=== PATIENT | female | born 1960 | race Caucasian/White ===

== ENCOUNTER 2020-05-08 13:45 | Observation (INO) | payer MEDICARE, BC, SELFPAY ==
[2020-05-08] VITALS (40 sets, daily range): BP systolic 103–140; BP diastolic 49–99; PULSE 61–91; RESP 14–27; TEMP 36.3–37.4; O2SAT 91–98; BMI 28.8
--- NOTE | ~2020-05-08 | XR_ITS ---
EXAMINATION: XR chest 1V portable DATE: 05/08/2020 15:38 INDICATION: Shortness of breath. COVID positive. TECHNIQUE: frontal view of the chest was obtained. COMPARISON: None FINDINGS: Mild opacities in the bilateral lower lung zones, left greater than right. No pleural effusion or pne umothorax. The cardiomediastinal silhouette is normal. Visualized bones and soft tissues are unremark able. IMPRESSION: 1. Mild opacities in the bilateral lower lung zones, left greater than right. Differential includes p neumonia, atelectasis, mild pulmonary edema or some combination thereof. Reviewed, dictated and finalized at location A. TROLOGIST IMPRESSION: 1. Mild opacities in the bilateral lower lung zones, left greater than right. D ifferential includes pneumonia, atelectasis, mild pulmonary edema or some combi nation thereof.
--- NOTE | ~2020-05-08 | CT_ITS ---
EXAMINATION: CTA chest PE protocol DATE: 05/09/2020 04:32 INDICATION: Shortness of breath, near syncope. TECHNIQUE: Computed tomography angiography (CTA) of the chest was performed with 100 mL Omnipaque-350 intravenous contrast timed to evaluate the pulmonary arteries. Coronal maximum intensity projection 3D-reconstructions were created by the technologist. Automated exposure control and iterative reconst ruction technique were employed. Exam dose: 223.61 mGy-cm total exam DLP. COMPARISON: May 08, 2020 portable AP chest at 1534 hours FINDINGS: There is diagnostic contrast enhancement of the pulmonary arteries and no evidence of pulmo nary embolism. Heart size is enlarged. No pericardial or pleural effusion. No thoracic aortic aneurysm or dissection. No hilar or mediastinal mass lesion or lymphadenopathy. There are scattered patchy primarily peripheral groundglass infiltrates. There is prominent discoid a telectasis and/or scarring in the lower lobes. Superimposed pneumonia is not excluded. Normal morphol ogy of the adrenal glands. Included upper abdominal structures are unremarkable. No suspicious osteolytic or osteoblastic lesions. IMPRESSION: Bilateral infiltrates and discoid atelectasis or scarring, most prominent in the lower l obes No evidence of pulmonary embolism Reviewed, dictated and finalized at Location A. Reviewed, dictated and finalized at location A. ARD WORKER IMPRESSION: Bilateral infiltrates and discoid atelectasis or scarring, most pr ominent in the lower lobes No evidence of pulmonary embolism
--- NOTE | 2020-05-08 13:52 | ECG_ITS ---
Measurements Intervals [place] Rate: 76 P: 40 AK: 133 QRS: 48 QRSD: 86 T: 188 QT: 358 QTc: 403 Interpretive Statements SINUS RHYTHM LEFT VENTRICULAR HYPERTROPHY AND ST-T CHANGE BORDERLINE ST-T WAVE ABNORMALITY- DIFFUSE LEADS BASELINE ARTIFACT- I, III, AVR, AVL BORDERLINE ECG Electronically Signed On 05-08-2020 14:02:52 WORKCELL OPERATOR by Kalin Ross D.O.
[2020-05-08 14:07] LABS: Basophils Percent Auto 0.3 % (0.2-1.2); Eosinophils Percent Auto 0.5 % (0-4.4); Hematocrit 37.3 % (37.0-47.0); Hemoglobin 12.1 g/dL (12.0-15.0); Immature Granulocyte Absolute 0.01 K/mm3 (0.00-0.031); Immature Granulocyte Percent A 0.3 % (0-0.5); Lymphocytes Absolute Auto 0.71 K/mm3 (0.9-3.2); Mean Corpuscular HGB Conc 32.4 g/dl (32-36); Mean Corpuscular Hemoglobin 28.3 pg (26-34); Mean Corpuscular Volume 87.4 fl (80-100); Mean Platelet Volume 10.2 fl (7.4-10.4); Monocytes Absolute Auto 0.3 K/mm3 (0.1-0.6); Monocytes Percent Auto 7.2 % (2.6-8.5); Neutrophils Absolute Auto 2.7 K/mm3 (1.3-6.7); Neutrophils Percent Auto 72.7 % (45.5-73.1); Platelet Count Result 201 k/mm3 (150-375); Red Blood Count 4.27 M/mm3 (4.2-5.4); Red Cell Distribution Width 13.8 % (11.5-14.5); White Blood Count 3.7 K/mm3 (4.5-10.0)
[2020-05-08 14:24] LABS: Anion Gap 9 mmol/L (8-16); Blood Urea Nitrogen 11 mg/dL (7-17); Carbon Dioxide 26 mmol/L (22-30); Chloride 105 mmol/L (98-107); Estimated CRCL calculation 63 ml/min; Estimated Glomerular Filt Rate > 60; Glucose 135 mg/dL (65-105); Potassium 2.4 mmol/L (3.4-5.0); Sodium 140 mmol/L (137-145)
[2020-05-08] MEDS: POTASSIUM CHLORIDE 20 MEQ TABLET 40 MEQ PO (15:25)
--- NOTE | 2020-05-08 16:23 | ED.SOB ---
HPI - SOB/Dyspnea General Chief Complaint: Shortness of Breath/Dyspnea Stated Complaint: covid/pneumonia Time Seen by Provider: 05/08/20 15:05 History of Present Illness HPI Narrative: Patient is a 59-year-old female who presents ER with shortness of breath. Patient has been feeling ill over the last 10 days. She had a Covid swab performed last week but it was lost and so she went and was swabbed 2 days ago. It came back positive. While she was swabbed the second time she was found to have a pneumonia and since she was a patient under investigation the prescribed her azithromycin. Patient reports she has history of IBS but has had increased frequency of loose stools. She also started having tingling in her arms bilaterally and occasional muscle cramps. Reports persistent low-grade fever. Extreme fatigue. Related Data Allergies Allergy/AdvReac Type Severity Reaction Status Date / Time amoxicillin Allergy Unknown Verified 05/08/20 15:25 codeine Allergy Unknown Verified 05/08/20 15:25 Sulfa (Sulfonamide Allergy Unknown Verified 05/08/20 15:25 Antibiotics) Review of Systems Review of Systems: All systems reviewed & are unremarkable except as noted in HPI and below Constitutional: Constitutional: Denies chills, Reports fatigue, Reports fever(s) and Reports weakness ENT: Denies nasal congestion and Denies sore throat Cardiovascular: Cardiovascular: Denies chest pain, Denies rapid heart rate and Denies radiating jaw, neck or arm pain Respiratory: Respiratory: Reports cough, Reports dyspnea and Denies wheezing Gastrointestinal: Gastrointestinal: Denies abdominal pain, Denies nausea and Denies vomiting Musculoskeletal: Musculoskeletal: Denies joint swelling and Reports muscle cramps Neurologic: Denies focal weakness and Denies numbness Comments: Tingling PMFSH Social History Social History Social History: The patient lives in [place]. Exam Narrative: Exam Narrative: GENERAL: Well-appearing, well-nourished, and in no acute distress. HEAD: Normocephalic, atraumatic. CHEST: Clear to auscultation. No respiratory distress. HEART: Regular rate and rhythm. Normal peripheral pulses. ABDOMEN: Soft, nontender, nondistended. EXTREMITIES: Normal range of motion. No edema. SKIN: Warm, dry, no rash. NEURO: Alert and oriented x3. PSYCH: Normal mood and affect. Course Course Emergency Course: Admit for observation and potassium replacement. No hypoxia so no steroids. Vital Signs Vital signs: Vital Signs Temperature 99.4 F 05/08/20 13:49 Pulse Rate 88 05/08/20 13:49 Respiratory Rate 20 05/08/20 13:49 Blood Pressure 103/49 L 05/08/20 13:49 Pulse Oximetry 96 05/08/20 13:49 Temperature 99.4 F 05/08/20 13:49 Pulse Rate 88 05/08/20 13:49 Respiratory Rate 20 05/08/20 13:49 Blood Pressure 103/49 L 05/08/20 13:49 Pulse Oximetry 96 05/08/20 13:49 MDM - SOB/Dyspnea Lab Data Result diagrams: 05/08/20 13:54 05/08/20 13:54 Labs: Lab Results 05/08/20 05/08/20 Range/Units 13:54 13:54 WBC 3.7 L (4.5-10.0) K/mm3 RBC 4.27 (4.2-5.4) M/mm3 Hgb 12.1 (12.0-15.0) g/dL Hct 37.3 (37.0-47.0) % MCV 87.4 (80-100) fl MCH 28.3 (26-34) pg MCHC 32.4 (32-36) g/dl RDW 13.8 (11.5-14.5) % Plt Count 201 (150-375) k/mm3 MPV 10.2 (7.4-10.4) fl Immature Gran % (Auto) 0.3 (0-0.5) % Neut % (Auto) 72.7 (45.5-73.1) % Lymph % (Auto) 19.0 (18.3-44.2) % Shoshone % (Auto) 7.2 (2.6-8.5) % Eos % (Auto) 0.5 (0-4.4) % Baso % (Auto) 0.3 (0.2-1.2) % Lymph # (Auto) 0.71 L (0.9-3.2) K/mm3 Shoshone # (Auto) 0.3 (0.1-0.6) K/mm3 Eos # (Auto) 0.0 (0-0.3) K/mm3 Baso # (Auto) 0.0 (0.0-0.1) K/mm3 Abs Immat Gran (auto) 0.01 (0.00-0.031) K/mm3 Absolute Neuts (auto) 2.7 (1.3-6.7) K/mm3 Absolute Nucleated RBC 0.0 (0.0-0.012) K/mm3 Nucleated RBC % 0.0 (0.0-0.2) % Sodium 140 (137-145) mmol/L Potassium
[2020-05-08] MEDS: SODIUM CHLORIDE 0.9% IV 1,000 ML 50 ML (17:10)
--- NOTE | 2020-05-08 19:00 | PM.IMHP ---
H&P: HPI History of Present Illness Date/Time: 05/08/20 19:00 Chief Complaint: Shortness of breath. Narrative: This a very pleasant 59-year-old female with coronary artery disease, hypertension, hyperlipidemia, hypothyroidism, and irritable bowel syndrome who presented to the emergency department earlier today with complaints of shortness of breath. For the past 10 days she has had multiple symptoms including lethargy, cough, body aches, fever, and frequent diarrhea. Her tested positive for COVID-19 last and she tested at a local [employer] a day or so thereafter however they apparently lost her test. She was then seen at a local urgent care a couple of days ago where she was found to have pneumonia and prescribed a Z-Isak. Two days ago she was told that she was positive for COVID-19. Today while she was in the shower she became extremely lightheaded and reports a near syncopal episode associated with severe shortness of breath. With further questioning she does have intermittent stabbing pains in the anterior chest although she sees no obvious pattern as to when that occurs, at times it will occur with deep inspiration and cough, other times not. A couple of weeks ago she and her traveled by car to [facility] and back, but cut their trip short as her got sick. She has no history of venous thromboembolism and denies lower extremity edema, calf pain, and tenderness. No palpitations and feelings of racing heart. Review of Systems Review of Systems: Narrative: Twelve systems were reviewed with pertinent positives and negatives as per HPI. Appetite has been okay. No overt dysgeusia. Her sense of smell has always been bad. She has not had exertional chest pain. No nausea, vomiting, or sweats. She is on budesonide for irritable bowel syndrome; denies having been diagnosed with inflammatory bowel disease. Except as documented, all other systems were reviewed and are negative. [facility] Past Medical History Medical History (Updated 05/09/20 @ 02:51 by Cleo Pablo PA-C) Anxiety Coronary artery disease COVID-19 (~04/2020) Depression Dyslipidemia History of urinary tract infection Hypertension Hypothyroidism Irritable bowel syndrome Migraines Surgical History Surgical History (Updated 05/09/20 @ 02:47 by Cleo Pablo PA-C) History of heart artery stent History of hernia repair Family History Family History (Updated 05/09/20 @ 02:48 by Cleo Pablo PA-C) Other Heart disease Hypertension Inflammatory bowel disease Social History Social History (Updated 05/09/20 @ 02:49 by Cleo Pablo PA-C) Social History: The patient is and lives in [place] with her . She is a lifelong nonsmoker. No alcohol or illicit substance abuse. Her Josh is her surrogate decision maker and she wishes to be a full code. Spiritual care concerns: No Meds Home Medications and Allergies Home Medications Medication Instructions Recorded Confirmed Type albuterol sulfate 2 puff INHALATION BID 05/08/20 05/08/20 History aspirin [Adult Low Dose Aspirin] 81 mg PO DAILY 05/08/20 05/08/20 History atorvastatin 40 mg PO DAILY 05/08/20 05/08/20 History azithromycin 250 mg PO DAILY 05/08/20 05/08/20 History budesonide 3 mg PO TID 05/08/20 05/08/20 History escitalopram oxalate 20 mg PO DAILY 05/08/20 05/08/20 History levothyroxine 88 mcg PO DAILY 05/08/20 05/08/20 History metoprolol tartrate 25 mg PO DAILY 05/08/20 05/08/20 History nitrofurantoin monohyd/m-cryst 100 mg PO DAILY PRN 05/08/20 05/08/20 History [Macrobid] cholecalciferol (vitamin D3) 25 mcg PO DAILY 05/09/20 05/09/20 History [Vitamin D3] vitamin B complex [B 1 tablet PO DAILY 05/09/20 05/09/20 History Complex-Vitamin B12] Allergies Allergy/AdvReac Type Severity Reaction Status Date / Time amoxicillin Allergy Unknown Verified 05/08/20 15:25 codeine Allergy Unknown Verified 05/08/20 15:
--- NOTE | 2020-05-08 20:04 | PC.NURSE ---
This patient, Ely Wei, was admitted to [facility] Surg Room 311-01. Patient/family oriented to hospital policies and general routines including ID bracelet, bed and alarms, visiting hours, pain management, procedures, bathroom and other care routines, personal items, smoking policy, room service/diet, and visiting hours. Information on how to activate the Rapid Response Team has been discussed. Patient/Family are encouraged to report perceived risks to care and to ask questions if they do not understand what they are told or what they should do.
[2020-05-08] MEDS: ACETAMINOPHEN 325 MG TABLET 650 MG PO (20:41)
[2020-05-08 23:41] LABS: Alanine Aminotransferase 21 U/L (4-35); Albumin Level 3.4 g/dL (3.5-5.1); Alkaline Phosphatase 52 U/L (38-126); Anion Gap 3 mmol/L (8-16); Aspartate Amino Transferase 30 U/L (14-36); Bilirubin,Total 0.4 mg/dL (0.2-1.3); Blood Urea Nitrogen 9 mg/dL (7-17); CRP 0.9 mg/dL (<1.0); Calcium 8.1 mg/dL (8.4-10.2); Carbon Dioxide 29 mmol/L (22-30); Chloride 109 mmol/L (98-107); Estimated CRCL calculation 74 ml/min; Estimated Glomerular Filt Rate > 60; Glucose 90 mg/dL (65-105); Lactate Dehydrogenase 542 U/L (313-618); Potassium 3.4 mmol/L (3.4-5.0); Sodium 141 mmol/L (137-145)
[2020-05-08 23:46] LABS: NT Pro B Type Natriuretic Pept 115 PG/ML (5-100)
[2020-05-09] VITALS: PULSE 57
[2020-05-09] MEDS: ESCITALOPRAM OXALATE 10 MG TABLET 20 MG PO (03:29)
[2020-05-09 04:00] VITALS: BP 128/64; PULSE 62; PULSE 65; RESP 18; TEMP 36.4; O2SAT 94
[2020-05-09] MEDS: PROMETHAZINE HCL 25 MG/ML AMPUL 12.5 MG IV PUSH (06:28)
[2020-05-09] MEDS: LEVOTHYROXINE SODIUM 88 MCG TABLET PO (06:30)
[2020-05-09 07:27] LABS: Anion Gap 5 mmol/L (8-16); Blood Urea Nitrogen 6 mg/dL (7-17); Carbon Dioxide 28 mmol/L (22-30); Chloride 108 mmol/L (98-107); Estimated CRCL calculation 88 ml/min; Estimated Glomerular Filt Rate > 60; Glucose 94 mg/dL (65-105); Potassium 3.2 mmol/L (3.4-5.0); Sodium 141 mmol/L (137-145)
[2020-05-09 08:00] VITALS: BP 105/63; PULSE 64; PULSE 95; RESP 16; TEMP 36.8; O2SAT 93
--- NOTE | 2020-05-09 10:14 | PCNWS ---
Addendum entered by Fely Boss RD, LDN 05/09/20 11:33: Correction: This is not a weekly screen. MST screen, new admit 05/08. Agree with further documentation. No further nutritional needs. Original Note: Weekly nutritional screen. Patient is tolerating current diet with increasing intake. Patient reported that she ate all of her eggs and sausage this morning, half of her toast, and 1/2 cup of coffee. To her that is major improvement because previously she could barely tolerate eating anything. Patient was screened for a MST of 2. Her chart stated she had lost 2-13 lbs. but when asking her she said she has lost 2-3 lbs. no more. She is not interested in nutritional supplements she wants to get her nutrients through her food. She reported being tired but she is definitely feeling better, eating better, and has a better appetite. No nutritional needs at this time.
[2020-05-09] MEDS: CHOLECALCIFEROL 1,000 UNITS TABLET 1000 UNITS PO (10:32)
[2020-05-09] MEDS: POTASSIUM CHLORIDE 20 MEQ TABLET 40 MEQ PO (10:32)
[2020-05-09] MEDS: ATORVASTATIN 40 MG TABLET PO (10:32)
[2020-05-09] MEDS: BUDESONIDE 3 MG CAP.SR.24H PO (10:32)
[2020-05-09] MEDS: AZITHROMYCIN 250 MG TABLET PO (10:32)
[2020-05-09] MEDS: ASPIRIN 81 MG CHEWABLE TABLET PO (10:32)
[2020-05-09] MEDS: VITAMIN B COMPLEX CAPSULE 1 CAP PO (10:32)
[2020-05-09 10:33] VITALS: PULSE 73
[2020-05-09] MEDS: METOPROLOL TARTRATE 12.5 MG TABLET PO (10:33)
[2020-05-09] MEDS: ENOXAPARIN 40 MG/0.4 ML SYRINGE SUB-Q (10:33)
[2020-05-09] MEDS: KCL 20 MEQ/SW 100 ML 100 ML 50 MEQ IVPB (10:34)
[2020-05-09 11:04] VITALS: O2SAT 94
--- NOTE | 2020-05-09 11:34 | PCNSR ---
On 05/09/20, the student, Cherry Sharma, provided care and completed [facility] documentation on this patient. I have reviewed the student's documentation and agree with the findings.
--- NOTE | 2020-05-09 11:54 | PM.DS ---
DS: Admitting Diagnosis Admitting Diagnosis Admitting Diagnosis: COVID pneumonia, hypokalemia DS: Discharge Diagnosis Discharge Diagnosis (1) COVID-19: Onset Date: ~04/2020 Code(s): U07.1 - COVID-19 Status: Acute Assessment and Plan: CTA chest shows scattered patchy primarily peripheral groundglass infiltrates suggesting COVID pneumonia. Patient's symptoms started roughly 11 days ago; reportedly positive 3 days ago. Not a candidate for dexamethasone or remdesivir as she is not hypoxic and requiring O2. She feels somewhat better today. She has one more does of azithromycin due tomorrow Will discharge today F/u with PCP Continue isolation Will have her finish azithromycin course tomorrow for antiinflammatory properties; bacterial coinfection less likely Tylenol, Mucinex as needed IS ordered Will have patient use albuterol inhaler sparingly as it seems as her presyncopal episodes seemed to be associated after using this medication. She also felt she was hyperventilating Encourage PO intake (2) Hypokalemia: Code(s): E87.6 - Hypokalemia Status: Acute Assessment and Plan: K 3.2 today; replaced Encouraged PO intake BMP in 1 week f/u with PCP (3) Pleuritic chest pain: Code(s): R07.81 - Pleurodynia Status: Acute Assessment and Plan: CTA chest negative. Likely related to COVID pneumonia See above a/p (4) Hypertension: Code(s): I10 - Essential (primary) hypertension Status: Inactive Assessment and Plan: BP 100-130s overnight Continue home antihypertensives (5) Dyslipidemia: Code(s): E78.5 - Hyperlipidemia, unspecified Status: Inactive Assessment and Plan: Continue home medications (6) Hypothyroidism: Code(s): E03.9 - Hypothyroidism, unspecified Status: Inactive Assessment and Plan: TSH wnl Continue home levothyroxine (7) Irritable bowel syndrome: Code(s): K58.9 - Irritable bowel syndrome without diarrhea Status: Inactive Assessment and Plan: No acute changes Continue current management DS: Summary Hospital Course Reason for hospitalization: Shortness of breath, COVID, hypokalemia Hospital Course: Date of arrival: 05/08/20 Date of discharge: 05/09/20 Patient is a very pleasant 59-year-old female with coronary artery disease, hypertension, hyperlipidemia, hypothyroidism, and irritable bowel syndrome who presented to the emergency department on 05/08 with complaints of shortness of breath. Patient had developed symptoms of lethargy, cough, bodyaches, fever, and frequent diarrhea roughly 10 days prior to arrival. She was tested positive for COVID two days prior to arrival. She had been placed on a Z-pack from an Urgent care visit prior to be tested positive. While in the ED, CXR showed mild opacities in b/l lower lung zones left greater than right. Patient was saturating adequately on RA. PE of concern and was admitted under this setting. Please see H&P for further details. Patient was admitted to the hospitalist service for further management/treatment. Patient was not a candidate for remdesivir and dexamethasone as she was not hypoxic. Furthermore, it had been 10 days since symptoms started. She was continued on her Z-pack during stay. CTA of the chest found no evidence of PE; bilateral infiltrates and discoid atelectasis or scaring was noted. Patient clinically improved after admission. Her potassium was found to be low and was replaced. Plan was for her to follow up wtih her PCP after discharge. She was to have a BMP on 1 week. She was given short supply of Zofran as needed. Patient agreeable and comfortable with plan for d
[2020-05-09 12:00] VITALS: BP 106/69; PULSE 76; PULSE 78; RESP 20; TEMP 37.1; O2SAT 94
== END 2020-05-09 14:10 | disposition home or self-care (01) ==
LOC: ANHED 15:23 → ANH3MEDSUR 17:45
PROVIDERS: Physician Assistant; Admitting Provider Family Medicine; Emergency Provider Emergency Medicine; Visit Provider Physician Assistant
DX: U07.1 COVID-19 (principal); E87.6 Hypokalemia; R07.81 Pleurodynia; I10 Essential (primary) hypertension; E78.5 Hyperlipidemia, unspecified; E03.9 Hypothyroidism, unspecified; K58.9 Irritable bowel syndrome, unspecified; I25.10 Atherosclerotic heart disease of native coronary artery without angina pectoris; R06.02 Shortness of breath; Z79.01 Long term (current) use of anticoagulants; Z79.899 Other long term (current) drug therapy; Z95.5 Presence of coronary angioplasty implant and graft
CPT/HCPCS: 36415; 71045; 71275; 80048; 80053; 82728; 83615; 83735; 83880; 84443; 85025; 86140; 93005; 96365; 96372; 96375; 96376; 99285; A9270; G0378; J1650; J2550; J3480; J7030; Q9967

== ENCOUNTER → 2020-05-23 13:50 | Outpatient (CLI) | payer MEDICARE, BC, SELFPAY ==
--- NOTE | ~2020-05-23 | MM_ITS ---
EXAMINATION: MM screening yvon BI w josh HISTORY: Screening mammogram TECHNIQUE: Craniocaudal and mediolateral oblique 3-D tomosynthesis images were obtained and synthetic 2-D images were generated. CAD analysis was submitted and interpreted. COMPARISON: No prior mammogram is available for comparison at this institution. BREAST PARENCHYMAL COMPOSITION: There are scattered areas of fibroglandular density. FINDINGS: There is no evidence of suspicious mass, calcification, or architectural distortion to sugg est malignancy in either breast. There has been no suspicious interval change. IMPRESSION: 1. No mammographic evidence of malignancy. 2. Recommend routine screening mammography in one year. BI-RADS Category 1: Negative Reviewed, dictated and finalized at location A. S CLERK
== END ==
PROVIDERS: PCP Internal Medicine
DX: Z12.31 Encounter for screening mammogram for malignant neoplasm of breast (principal)
CPT/HCPCS: 77063; 77067

== ENCOUNTER → 2021-04-04 02:07 | Outpatient (CLI) | payer MEDICARE, BC, SELFPAY ==
[2021-04-04 21:12] LABS: SARS-CoV-2 RNA PCR Negative
== END ==
PROVIDERS: PCP Internal Medicine; Visit Provider Nurse Practitioner
DX: R51.9 Headache, unspecified (principal); Z20.822 Contact with and (suspected) exposure to COVID-19
CPT/HCPCS: C9803; U0003; U0005

== ENCOUNTER 2021-05-20 20:54 | Emergency (ER) | payer MEDICARE, BC, SELFPAY ==
[2021-05-20] VITALS (12 sets, daily range): BP systolic 163–171; BP diastolic 68–90; PULSE 51–68; RESP 11–24; TEMP 36.7; O2SAT 97–99
--- NOTE | ~2021-05-20 | CT_ITS ---
EXAMINATION: CT brain wo con DATE: 05/20/2021 21:45 INDICATION: Vision changes from right-sided ocular migraine TECHNIQUE: Computed tomography (CT) of the head was performed without intravenous contrast. Sagittal and coronal reconstructions were performed. The mA was adjusted according to patient size. Iterative reconstruction technique was employed. The dose-length product was 605.33 mGy-cm. COMPARISON: None FINDINGS: No acute intracranial hemorrhage, acute infarction or abnormal extra axial fluid collection. Ventricl es are normal and symmetric. No mass/mass effect. The orbits, paranasal sinuses and mastoid air cells are normal. IMPRESSION: 1. No acute intracranial process. Reviewed, dictated and finalized at location A. 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
[2021-05-20] MEDS: SODIUM CHLORIDE 0.9% IV 1,000 ML 999 ML IV CONT (21:52)
[2021-05-20] MEDS: diphenhydrAMINE HCl INJ 50 MG/ML VIAL 25 MG IV PUSH (21:53)
[2021-05-20] MEDS: KETOROLAC 30 MG/ML VIAL (*BKC) 15 MG IV PUSH (21:53)
[2021-05-20] MEDS: METOCLOPRAMIDE HCL INJ 10 MG/2 ML VIAL IV PUSH (21:53)
--- NOTE | 2021-05-20 23:42 | ED.HA ---
HPI - Headache General Chief Complaint: Headache Stated Complaint: eye complaint Time Seen by Provider: 05/20/21 21:22 Source: patient Mode of arrival: ambulatory Limitations: no limitations History of Present Illness HPI Narrative: 60 year old female with history of ocular migraines presents today with complaints of an ocular migraine that started at 4pm. Patient states her migraines normally do not last this long. She has complaints of floaters to her vision and mild headache. She denies vision loss, weakness, slurred speech, or any other neurological issues. Since longterm she has not had many migraines. Prior to arrival patient took her metoprolol. Related Data Home Medications Medication Instructions Recorded Confirmed albuterol sulfate 2 puff INHALATION BID 05/08/20 04/09/21 aspirin 81 mg PO DAILY 05/08/20 04/09/21 atorvastatin 40 mg PO DAILY 05/08/20 04/09/21 escitalopram oxalate 20 mg PO DAILY 05/08/20 04/09/21 cholecalciferol (vitamin D3) 25 mcg PO DAILY 05/09/20 04/09/21 [Vitamin D3] vitamin B complex [B 1 tablet PO DAILY 05/09/20 04/09/21 Complex-Vitamin B12] alprazolam 0.25 mg tablet 0.25 mg PO DAILY PRN 06/11/20 04/09/21 colestipol 1 gram tablet 1 g PO ONCE 06/11/20 04/09/21 metoprolol tartrate 25 mg tablet 12.5 mg PO BID tablet 06/11/20 04/09/21 Allergies Allergy/AdvReac Type Severity Reaction Status Date / Time amoxicillin Allergy Stomach Verified 06/11/20 10:23 issues codeine Allergy Hives Verified 06/11/20 10:23 doxycycline Allergy headaches Verified 06/11/20 10:19 hydrocodone Allergy Hives Verified 06/11/20 10:19 morphine Allergy nausea/vomi Verified 06/11/20 10:19 ting pneumococcal vaccine Allergy Hives Verified 06/11/20 10:19 [From Pneumovax-23] Sulfa (Sulfonamide Allergy Hives Verified 06/11/20 10:19 Antibiotics) Review of Systems Review of Systems: CONSTITUTIONAL: Denies fever, chills, or sweats. EYES: Seeing flashes and spots. Denies redness, or discharge. ENT: Denies rhinorrhea, congestion, sore throat, or otalgia. CARDIOVASCULAR: Denies chest pain, palpitations, or edema. RESPIRATORY: Denies cough or dyspnea. GASTROINTESTINAL: Denies abdominal pain, nausea, vomiting, or diarrhea. GENITOURINARY: Denies dysuria or hematuria. SKIN: Denies rash or itching. MUSCULOSKELETAL: Denies back pain, joint pain, or myalgia. NEUROLOGIC: Denies headache, numbness, dizziness, or weakness. PSYCHIATRIC: Denies anxiety or depression. [facility] Past Medical History Medical History (Updated 05/20/21 @ 23:51 by Lalitha Benites APRN) Anemia Anxiety Coronary artery disease COVID-19 (~04/2020) Depression Dyslipidemia Heart disease History of urinary tract infection Hypertension Hypothyroidism Irritable bowel syndrome Migraines Surgical History Surgical History H/O excision of dermoid cyst 03/22/2014 09/06/2018 History of heart artery stent History of hernia repair 08/06/2016 Family History Family History Father Heart disease Mother Hypertension Depression Cerebrovascular accident Other Inflammatory bowel disease Social History Social History Social History: The patient is and lives in [place] with her . She is a lifelong nonsmoker. No alcohol or illicit substance abuse. Her Josh is her surrogate decision maker and she wishes to be a full code. Smoking status: Never smoker Alcohol intake: never Spiritual care concerns: No Exam Narrative: GENERAL: Well-appearing, well-nourished, and in no acute distress. HEAD: Normocephalic, atraumatic. EYES: PERRLA and EOMI. ENT: Nares clear, no rhinorrhea or epistaxis. Mucous membranes moist. Oropharynx without tonsillar hypertrophy exudate or other lesions. Bilateral TMs pearly reyes nonbulging NECK: Supple. No
[2021-05-21] VITALS: PULSE 57; RESP 18
== END 2021-05-21 00:04 | disposition home or self-care (01) ==
PROVIDERS: Emergency Provider Nurse Practitioner Family; PCP Internal Medicine
DX: G43.B0 Ophthalmoplegic migraine, not intractable (principal); E78.5 Hyperlipidemia, unspecified; I11.9 Hypertensive heart disease without heart failure; E03.9 Hypothyroidism, unspecified; K58.9 Irritable bowel syndrome, unspecified; F32.A Depression, unspecified; F41.9 Anxiety disorder, unspecified; Z95.5 Presence of coronary angioplasty implant and graft; Z86.16 Personal history of COVID-19; Z87.440 Personal history of urinary (tract) infections; Z86.2 Personal history of diseases of the blood and blood-forming organs and certain disorders involving the immune mechanism; Z79.82 Long term (current) use of aspirin
CPT/HCPCS: 70450; 96361; 96374; 96375; 99284; J1200; J1885; J2765; J7030

== ENCOUNTER → 2022-03-19 14:50 | Outpatient (CLI) | payer MEDICARE, BC, SELFPAY ==
--- NOTE | ~2022-03-19 | XR_ITS ---
EXAMINATION: XR chest 2V Exam Date/Time: 03/19/2022 14:57 GUARD RANGE HISTORY: cough sob for 1 month Comparison: 05/08/2020. RESULT: Lines, tubes, and devices: None. Lungs and pleura: Clear. Cardiomediastinal silhouette: Stable. Other: No acute osseous or upper abdominal finding. IMPRESSION: No acute cardiopulmonary process. Reviewed, dictated and finalized at location K. D RANGE
== END ==
PROVIDERS: PCP Internal Medicine; Visit Provider Nurse Practitioner
DX: R05.9 Cough, unspecified (principal); R06.02 Shortness of breath
CPT/HCPCS: 71046

== ENCOUNTER → 2022-04-28 10:56 | Outpatient (CLI) | payer MEDICARE, BC, SELFPAY ==
--- NOTE | ~2022-04-28 | MM_ITS ---
EXAMINATION: MM screening yvon BI w josh HISTORY: Screening mammogram TECHNIQUE: Craniocaudal and mediolateral oblique 3-D tomosynthesis images were obtained and synthetic 2-D images were generated. CAD analysis was submitted and interpreted. COMPARISON: 05/23/2020 bilateral screening mammogram BREAST PARENCHYMAL COMPOSITION: The breasts are heterogeneously dense, which may obscure small masses . FINDINGS: There is no evidence of suspicious mass, calcification, or architectural distortion to sugg est malignancy in either breast. There has been no suspicious interval change. IMPRESSION: 1. No mammographic evidence of malignancy. 2. Recommend routine screening mammography in one year. BI-RADS Category 1: Negative Reviewed, dictated and finalized at location A. ENT PLACEMENT COORDINATOR
== END ==
PROVIDERS: PCP Internal Medicine; Visit Provider Nurse Practitioner
DX: Z12.31 Encounter for screening mammogram for malignant neoplasm of breast (principal)
CPT/HCPCS: 77063; 77067

== ENCOUNTER 2023-02-13 07:11 | Emergency (ER) | payer MEDICARE, BC, SELFPAY ==
[2023-02-13] VITALS (12 sets, daily range): BP systolic 129–187; BP diastolic 79–105; PULSE 90–118; RESP 14–24; TEMP 36.7; O2SAT 93–100
[2023-02-13 07:31] LABS: Basophils Percent Auto 0.3 % (0.2-1.2); Eosinophils Percent Auto 0.3 % (0-4.4); Hematocrit 39.5 % (37.0-47.0); Hemoglobin 12.4 g/dL (12.0-15.0); Immature Granulocyte Absolute 0.02 K/mm3 (0.00-0.031); Immature Granulocyte Percent A 0.3 % (0-0.5); Lymphocytes Absolute Auto 0.86 K/mm3 (0.9-3.2); Mean Corpuscular HGB Conc 31.4 g/dl (32-36); Mean Corpuscular Hemoglobin 28.8 pg (26-34); Mean Corpuscular Volume 91.6 fl (80-100); Mean Platelet Volume 9.2 fl (7.4-10.4); Monocytes Absolute Auto 0.4 K/mm3 (0.1-0.6); Monocytes Percent Auto 7.2 % (2.6-8.5); Neutrophils Absolute Auto 4.8 K/mm3 (1.3-6.7); Neutrophils Percent Auto 77.9 % (45.5-73.1); Platelet Count Result 251 k/mm3 (150-375); Red Blood Count 4.31 M/mm3 (4.2-5.4); Red Cell Distribution Width 13.4 % (11.5-14.5); White Blood Count 6.1 K/mm3 (4.5-10.0)
[2023-02-13] MEDS: METOCLOPRAMIDE HCL INJ 10 MG/2 ML VIAL IV PUSH (07:39)
[2023-02-13] MEDS: diphenhydrAMINE HCl INJ 50 MG/ML VIAL 25 MG IV PUSH (07:40)
[2023-02-13 07:41] LABS: Alanine Aminotransferase 43 U/L (6-35); Albumin Level 4.5 g/dL (3.5-5.1); Alkaline Phosphatase 75 U/L (38-126); Anion Gap 11 mmol/L (8-16); Aspartate Amino Transferase 54 U/L (14-36); Bilirubin,Total 0.9 mg/dL (0.2-1.3); Blood Urea Nitrogen 10 mg/dL (7-17); Calcium 8.9 mg/dL (8.4-10.2); Carbon Dioxide 25 mmol/L (22-30); Chloride 101 mmol/L (98-107); Estimated CRCL calculation 74 ml/min; Estimated Glomerular Filt Rate > 60; Glucose 106 mg/dL (65-110); Lipase 109 U/L (23-300); Potassium 3.1 mmol/L (3.4-5.0); Sodium 137 mmol/L (137-145)
--- NOTE | 2023-02-13 07:47 | ED.NAVMDI ---
HPI - Nausea/Vomiting/Diarrhea General Chief complaint: Nausea/Vomiting/Diarrhea Stated complaint: I'm severely dehydrated Time Seen by Provider: 02/13/23 07:32 History of Present Illness HPI Narrative: A few days ago patient started having congestion and chills, and then started having a lot of diarrhea and nausea the last few days, having trouble keeping things down, she now feels very dehydrated, and last night started having a headache. She often gets symptoms like this when she is sick. Related Data Home Medications Medication Instructions Recorded Confirmed aspirin 81 mg tablet 81 mg PO DAILY 05/08/20 12/08/22 cholecalciferol (vitamin D3) 25 25 mcg PO DAILY 05/09/20 12/08/22 mcg (1,000 unit) capsule (Vitamin D3) vitamin B complex (B 1 tablet PO DAILY 05/09/20 12/08/22 Complex-Vitamin B12 tablet) metoprolol tartrate 25 mg tablet 12.5 mg PO BID 06/11/20 12/08/22 atorvastatin 40 mg tablet 40 mg PO DAILY 12/19/21 12/08/22 diphenoxylate-atropine 2.5 2 tablet PO BID 05/22/22 12/08/22 mg-0.025 mg tablet Allergies Allergy/AdvReac Type Severity Reaction Status Date / Time codeine Allergy Hives Verified 02/13/23 07:25 doxycycline Allergy headaches Verified 02/13/23 07:25 hydrocodone Allergy Hives Verified 02/13/23 07:25 morphine Allergy nausea/vomi Verified 02/13/23 07:25 ting pneumococcal vaccine Allergy Hives Verified 02/13/23 07:25 [From Pneumovax-] Sulfa (Sulfonamide Allergy Hives Verified 02/13/23 07:25 Antibiotics) Review of Systems Review of Systems: CONST: No fever. HEENT: Nasal congestion C/V: No chest pain RESP: No cough GI: Reports nausea, vomiting[, diarrhea] without abdominal pain : No dysuria. M/S: Generalized weakness SKIN: No rash. NEURO: [Headache without focal numbness or weakness] PSYCH: Anxious PMFSH Past Medical History Medical History (Updated 02/13/23 @ 10:50 by Minda Rush MD) Anemia Anxiety Coronary artery disease COVID-19 (~04/2020) Depression Dyslipidemia External hemorrhoids Heart disease History of urinary tract infection Hypertension Hypothyroidism Irritable bowel syndrome Migraines Surgical History Surgical History H/O excision of dermoid cyst 03/22/2014 09/06/2018 History of heart artery stent History of hernia repair 08/06/2016 Family History Family History Father Heart disease Mother Hypertension Depression Cerebrovascular accident Other Inflammatory bowel disease Social History Social History Social History: The patient is and lives in [place] with her . She is a lifelong nonsmoker. No alcohol or illicit substance abuse. Her Josh is her surrogate decision maker and she wishes to be a full code. Caffeine-daily Smoking status: Never smoker Alcohol intake: never Lack of Transportation: No Lack of Food: Never True Current Housing: I Have Housing Concerned About Future Housing: No Difficulty Paying Gas/Electric Bills: No Difficulty Paying for Meds: No Currently Unemployed: No Education: High School Diploma/GED Difficulty w/ Childcare or Family Care: No Spiritual care concerns: No Exam Narrative: EXAMINATION OF ORGAN SYSTEMS/BODY AREAS: Constitutional: Vital signs per nursing GENERAL: Anxious HEAD: Normal with no signs of head trauma. EYES: EOMI, conjunctiva normal ENT: Hearing grossly intact LUNGS: Nonlabored breathing. HEART: [Regular rate and rhythm] ABD: [Soft], [nontender to palpation] EXT: Normal range of motion SKIN: [No rashes or lesions.] NEURO: [Alert and oriented x 3. No gross focal sensory or strength deficits.] PSYCH: Anxious affect Course Vital Signs Vital signs: Vital Signs Pulse Rate 102 H 02/13/23 07:21 Respiratory Rate 19 02/13/23 07:21
[2023-02-13] MEDS: LACTATED RINGERS 1,000 ML 999 ML IV CONT ×2 (07:53→10:05)
[2023-02-13] MEDS: POTASSIUM CHLORIDE 20 MEQ PACKET (FOR LIQUID) 40 MEQ PO (07:53)
[2023-02-13 09:07] LABS: Appearance Urine Cloudy (Clear); Bacteria Urine Rare /hpf; Bilirubin Urine Negative (Negative); Color Urine Yellow (Yellow); Glucose Urine UA Negative (Negative); Ketones Urine Negative (Negative); Leukocyte Esterase Ur Trace LEU/UL (Negative); Nitrate Urine Negative (Negative); Non Pathogenic Casts 0-2; Protein Urine Negative (Negative); Specific Grav Ur 1.013 (1.001-1.035); Squamous Epithelial Cell Urine Moderate /hpf (Few); Urobilinogen Urine 0.2 mg/dL (<2.0); WBC Urine 0-5 /hpf; pH Urine 7.5 (5.0-9.0)
[2023-02-13 09:38] LABS: Influenza A QL RT-PCR Negative (Negative); Influenza B QL RT-PCR Negative (Negative); RSV RNA, RT-PCR Negative (Negative); SARS-CoV-2 RNA PCR Positive (Negative)
[2023-02-13 09:41] LABS: Add Urine Microscopic? YES
[2023-02-13] MEDS: KCL 20 MEQ/SW 100 ML 100 ML 50 MEQ IVPB (10:05)
[2023-02-13] MEDS: KETOROLAC 15 MG/ML VIAL (*BKC) (10:05)
== END 2023-02-13 12:56 | disposition home or self-care (01) ==
PROVIDERS: Emergency Provider Emergency Medicine; PCP Internal Medicine
DX: U07.1 COVID-19 (principal); R11.2 Nausea with vomiting, unspecified; R19.7 Diarrhea, unspecified; I25.10 Atherosclerotic heart disease of native coronary artery without angina pectoris; I10 Essential (primary) hypertension; E78.5 Hyperlipidemia, unspecified; E03.9 Hypothyroidism, unspecified; K58.9 Irritable bowel syndrome, unspecified; F41.9 Anxiety disorder, unspecified; F32.A Depression, unspecified; Z95.5 Presence of coronary angioplasty implant and graft; Z86.16 Personal history of COVID-19; Z87.440 Personal history of urinary (tract) infections; Z79.82 Long term (current) use of aspirin
CPT/HCPCS: 36415; 80053; 81001; 83690; 85025; 87637; 96361; 96365; 96366; 96375; 99284; A9270; J1200; J1885; J2765; J3480; J7120

== ENCOUNTER 2023-08-03 11:37 | Outpatient (CLI) | payer MEDICARE, BC, SELFPAY ==
[2023-08-03 13:41] LABS: Anion Gap 7 mmol/L (4-12); Blood Urea Nitrogen 22 mg/dL (7-17); Calcium 9.5 mg/dL (8.4-10.2); Carbon Dioxide 25 mmol/L (22-30); Chloride 108 mmol/L (98-107); Estimated Glomerular Filt Rate > 60; Glucose 93 mg/dL (65-110); Potassium 4.3 mmol/L (3.4-5.0); Sodium 140 mmol/L (137-145)
== END 2023-08-03 11:38 | disposition home or self-care (01) ==
LOC: ANHGOSHLAB 11:39
PROVIDERS: PCP Internal Medicine; Visit Provider Clinical Nurse Specialist
DX: I10 Essential (primary) hypertension (principal)
CPT/HCPCS: 36415; 80048

== ENCOUNTER 2023-09-21 09:26 | Emergency (ER) | payer MEDICARE, BC, SELFPAY ==
--- NOTE | ~2023-09-21 | XR_ITS ---
XR chest 2V Ordering provider: Jc Flores MD History: 62 years Female with . cough FATIGUED . Comparison: March 19, 2022 FINDINGS: MEDIASTINUM: The cardiac silhouette is not enlarged. LUNGS: No effusion or pneumothorax. Opacity in the right midzone which may indicate pneumonia. Follow -up advised. Follow-up to resolution is advised to exclude underlying nodule. Underlying emphysematou s changes. Left atelectatic changes. OTHER: No free air under the diaphragm. Degenerative changes of the spine. IMPRESSION: Right upper lobe pneumonia. Follow-up to resolution advised. Reviewed, dictated and finalized at location A.
[2023-09-21 09:30] VITALS: BP 130/72; PULSE 96; RESP 18; TEMP 37.4; O2SAT 97
[2023-09-21 09:45] VITALS: BP 126/74; PULSE 96; RESP 18; O2SAT 95
[2023-09-21 10:15] VITALS: BP 126/76; PULSE 94; RESP 16; O2SAT 95
[2023-09-21] MEDS: KETOROLAC 30 MG/ML VIAL (*BKC) IV PUSH (10:22)
[2023-09-21] MEDS: SODIUM CHLORIDE 0.9% IV 1,000 ML 999 ML IV CONT (10:23)
--- NOTE | 2023-09-21 10:42 | ED.GENADULT ---
HPI - General Adult General Chief complaint: Upper Respiratory Infection Stated complaint: respiratory infection Time Seen by Provider: 09/21/23 09:32 History of Present Illness HPI narrative: Patient is a 62-year-old female who presents ER with concern for cough. Ongoing for 2 weeks. Developed fever this morning. Has had sinus congestion with this. She saw her PCP 1 week ago who recommended Mucinex. She has not been on antibiotics. Reports she had a grandchild with similar illness without formal diagnosis. Related Data Home Medications Medication Instructions Recorded Confirmed aspirin 81 mg tablet 81 mg PO DAILY 05/08/20 08/03/23 cholecalciferol (vitamin D3) 25 25 mcg PO DAILY 05/09/20 08/03/23 mcg (1,000 unit) capsule (Vitamin D3) metoprolol tartrate 25 mg tablet 12.5 mg PO BID 06/11/20 08/03/23 atorvastatin 40 mg tablet 40 mg PO DAILY 12/19/21 08/03/23 multivitamin 1 tablet PO DAILY 02/27/23 08/03/23 Allergies Allergy/AdvReac Type Severity Reaction Status Date / Time codeine Allergy Hives Verified 09/21/23 09:33 doxycycline Allergy headaches Verified 09/21/23 09:33 hydrocodone Allergy Hives Verified 09/21/23 09:33 morphine Allergy nausea/vomi Verified 09/21/23 09:33 ting pneumococcal vaccine Allergy Hives Verified 09/21/23 09:33 [From Pneumovax-23] Sulfa (Sulfonamide Allergy Hives Verified 09/21/23 09:33 Antibiotics) Review of Systems Review of Systems: All systems reviewed & are unremarkable except as noted in HPI and below Constitutional: Constitutional: Reports no additional constitutional complaints ENT: Reports nasal congestion and Reports sore throat Cardiovascular: Cardiovascular: Reports no additional cardiovascular complaints Respiratory: Respiratory: Reports cough, Denies dyspnea and Denies wheezing Gastrointestinal: Gastrointestinal: Reports no additional gastrointestinal complaints Musculoskeletal: Musculoskeletal: Reports no additional musculoskeletal complaints PMFSH Past Medical History Medical History Abnormal chest x-ray Acute hypokalemia Acute sinusitis Anemia Anxiety Cervical radiculopathy Coronary artery disease Cough COVID-19 (Unknown) Depression Dyslipidemia External hemorrhoids Heart disease History of urinary tract infection Hospital discharge follow-up Hypertension Hypokalemia Hypothyroidism Irritable bowel syndrome Localized swelling, mass and lump, unspecified Microscopic colitis Migraines Pleuritic chest pain Pneumonia due to COVID-19 virus Surgical History Surgical History H/O excision of dermoid cyst 03/22/2014 09/06/2018 History of heart artery stent History of hernia repair 08/06/2016 Family History Family History Father Heart disease Mother Hypertension Depression Cerebrovascular accident Other Inflammatory bowel disease Social History Social History Social History: The patient is and lives in [place] with her . She is a lifelong nonsmoker. No alcohol or illicit substance abuse. Her Josh is her surrogate decision maker and she wishes to be a full code. Caffeine-daily Smoking status: Never smoker Alcohol intake: never Do You Feel Safe in your Home?: Yes Lack of Transportation: No Lack of Food: Never True Current Housing: I Have Housing Concerned About Future Housing: No Difficulty Paying Gas/Electric Bills: No Difficulty Paying for Meds: No Currently Unemployed: No Education: High School Diploma/GED Difficulty w/ Childcare or Family Care: No Spiritual care concerns: No Exam Narrative: GENERAL: Well-appearing, well-nourished, and in no acute distress. HEAD: Normocephalic, atraumatic. ENT: Mucous membranes moist. Normal shayan
[2023-09-21 11:21] LABS: Influenza A QL RT-PCR Negative (Negative); Influenza B QL RT-PCR Negative (Negative); RSV RNA, RT-PCR Negative (Negative); SARS-CoV-2 RNA PCR Negative (Negative)
[2023-09-21 12:23] VITALS: BP 154/75; PULSE 88; RESP 16; O2SAT 97
== END 2023-09-21 12:25 | disposition home or self-care (01) ==
PROVIDERS: Emergency Provider Emergency Medicine; PCP Internal Medicine
DX: J18.9 Pneumonia, unspecified organism (principal); Z20.822 Contact with and (suspected) exposure to COVID-19; D64.9 Anemia, unspecified; F32.A Depression, unspecified; Z87.440 Personal history of urinary (tract) infections; I10 Essential (primary) hypertension
CPT/HCPCS: 71046; 87637; 96361; 96374; 99284; J1885; J7030

== ENCOUNTER 2023-10-01 12:40 | Outpatient (CLI) | payer MEDICARE, BC, SELFPAY ==
--- NOTE | ~2023-10-01 | XR_ITS ---
XR chest 2V 10/01/2023 13:04 Indication: Follow-up pneumonia Procedure: 2 view chest Comparison: 09/21/2023 Findings: There has been near complete resolution of right upper lobe pneumonia. Heart size normal. N o pleural effusion, edema or pneumothorax. No acute osseous abnormality. Impression: 1: Near-complete resolution of right upper lobe pneumonia. Reviewed, dictated and finalized at location B. Impression: 1: Near-complete resolution of right upper lobe pneumonia.
== END 2023-10-01 12:41 ==
PROVIDERS: PCP Internal Medicine; Visit Provider Clinical Nurse Specialist
DX: J18.9 Pneumonia, unspecified organism (principal)
CPT/HCPCS: 71046

== ENCOUNTER 2023-10-22 15:18 | Outpatient (CLI) | payer MEDICARE, BC, SELFPAY ==
--- NOTE | ~2023-10-22 | XR_ITS ---
XR chest 2V 10/22/2023 15:35 Indication: Pneumonia Procedure: PA and lateral views the chest Comparison: Comparison to multiple prior studies sequentially, with oldest reviewed study dated 06/2022. Findings: Nodular density right lung base. Follow-up CT chest without contrast recommended for furthe r assessment. Heart size normal. Chronic left basilar atelectasis/scarring. The lungs are hyperinflat ed which is consistent with, but not diagnostic of chronic obstructive pulmonary disease. Impression: 1: Nodular density right lower thorax. Follow-up CT chest without contrast recommended. Reviewed, dictated and finalized at location B. Impression: 1: Nodular density right lower thorax. Follow-up CT chest without contrast brandon mmended.
== END 2023-10-22 15:19 ==
PROVIDERS: PCP Clinical Nurse Specialist; Visit Provider Clinical Nurse Specialist
DX: J18.9 Pneumonia, unspecified organism (principal)
CPT/HCPCS: 71046

== ENCOUNTER 2023-10-25 00:28 | Emergency (ER) | payer MEDICARE, BC, SELFPAY ==
[2023-10-25 00:34] VITALS: BP 159/98; PULSE 90; RESP 18; TEMP 36.5; O2SAT 100
[2023-10-25 01:18] VITALS: BP 152/88; PULSE 91; RESP 19; O2SAT 99
--- NOTE | 2023-10-25 01:51 | ECG_ITS ---
Test Date: 2023-10-25 02:07:22 Measurements Intervals [place] Rate: 98 P: 47 CO: 158 QRS: 47 QRSD: 87 T: 14 QT: 388 QTc: 497 Interpretive Statements SINUS RHYTHM NONSPECIFIC ST & T-WAVE ABNORMALITY No previous ECG available for comparison Electronically Signed On 10-25-2023 13:45:56 CDT by Liang Blackwell M.D.
[2023-10-25] MEDS: SODIUM CHLORIDE 0.9% IV 1,000 ML 999 ML IV CONT (01:55)
[2023-10-25] MEDS: ONDANSETRON INJ 4 MG/2 ML VIAL IV PUSH (01:56)
[2023-10-25 01:57] LABS: Basophils Percent Auto 0.7 % (0.2-1.2); Eosinophils Percent Auto 0.5 % (0-4.4); Hematocrit 37.1 % (37.0-47.0); Hemoglobin 12.4 g/dL (12.0-15.0); Immature Granulocyte Absolute 0.01 K/mm3 (0.00-0.031); Immature Granulocyte Percent A 0.2 % (0-0.5); Lymphocytes Absolute Auto 0.89 K/mm3 (0.9-3.2); Lymphocytes Percent Auto 16.1 % (18.3-44.2); Mean Corpuscular HGB Conc 33.4 g/dl (32-36); Mean Corpuscular Hemoglobin 29.3 pg (26-34); Mean Corpuscular Volume 87.7 fl (80-100); Mean Platelet Volume 9.5 fl (7.4-10.4); Monocytes Absolute Auto 0.3 K/mm3 (0.1-0.6); Monocytes Percent Auto 5.8 % (2.6-8.5); Neutrophils Absolute Auto 4.3 K/mm3 (1.3-6.7); Neutrophils Percent Auto 76.7 % (45.5-73.1); Platelet Count Result 309 k/mm3 (150-375); Red Blood Count 4.23 M/mm3 (4.2-5.4); Red Cell Distribution Width 14.6 % (11.5-14.5); White Blood Count 5.5 K/mm3 (4.5-10.0)
[2023-10-25] MEDS: LORazepam INJ (*CRX) 2 MG/ML VIAL 1 MG IV PUSH (02:03)
[2023-10-25 02:11] LABS: Alanine Aminotransferase 40 U/L (6-35); Albumin Level 4.5 g/dL (3.5-5.1); Alkaline Phosphatase 77 U/L (38-126); Anion Gap 11 mmol/L (4-12); Aspartate Amino Transferase 43 U/L (14-36); Bilirubin,Total 0.7 mg/dL (0.2-1.3); Blood Urea Nitrogen 16 mg/dL (7-17); Calcium 9.5 mg/dL (8.4-10.2); Carbon Dioxide 25 mmol/L (22-30); Chloride 106 mmol/L (98-107); Estimated CRCL calculation 49 ml/min; Estimated Glomerular Filt Rate > 60; Glucose 129 mg/dL (65-110); Lipase 133 U/L (23-300); Potassium 3.2 mmol/L (3.4-5.0); Sodium 142 mmol/L (137-145)
[2023-10-25] MEDS: POTASSIUM CHLORIDE 20 MEQ ER TABLET 40 MEQ PO (03:23)
[2023-10-25 03:28] VITALS: BP 177/90; PULSE 100; RESP 20; O2SAT 94
--- NOTE | 2023-10-25 03:28 | PC.NURSE ---
Patient given water for PO challenge.
[2023-10-25 04:00] VITALS: BP 172/89; PULSE 99; RESP 17; O2SAT 95
--- NOTE | 2023-10-25 04:02 | ED.NAVMDI ---
HPI - Nausea/Vomiting/Diarrhea General Chief complaint: Nausea/Vomiting/Diarrhea Stated complaint: dizzy/vomiting/weakness Time Seen by Provider: 10/25/23 01:50 History of Present Illness HPI Narrative: Patient had forgotten to take her evening medications, and then try taking all the med 3 she had eaten dinner, was feeling extremely nauseous, threw everything up, and then started having a panic attack. Does have history of panic attacks and this feels similar. Also has a mild headache Related Data Home Medications Medication Instructions Recorded Confirmed aspirin 81 mg tablet 81 mg PO DAILY 05/08/20 10/15/23 cholecalciferol (vitamin D3) 25 25 mcg PO DAILY 05/09/20 10/15/23 mcg (1,000 unit) capsule (Vitamin D3) metoprolol tartrate 25 mg tablet 12.5 mg PO BID 06/11/20 10/15/23 atorvastatin 40 mg tablet 40 mg PO DAILY 12/19/21 10/15/23 multivitamin 1 tablet PO DAILY 02/27/23 10/15/23 Allergies Allergy/AdvReac Type Severity Reaction Status Date / Time codeine Allergy Hives Verified 10/25/23 01:59 doxycycline Allergy headaches Verified 10/25/23 01:59 hydrocodone Allergy Hives Verified 10/25/23 01:59 morphine Allergy nausea/vomi Verified 10/25/23 01:59 ting pneumococcal vaccine Allergy Hives Verified 10/25/23 01:59 [From Pneumovax-23] Sulfa (Sulfonamide Allergy Hives Verified 10/25/23 01:59 Antibiotics) Review of Systems Review of Systems: All systems reviewed & are unremarkable except as noted in HPI and below PMFSH Past Medical History Medical History (Updated 10/25/23 @ 03:48 by Minda Rush MD) Abnormal chest x-ray Acute hypokalemia Acute sinusitis Anemia Anxiety Cervical radiculopathy Coronary artery disease Cough COVID-19 (Unknown) Depression Dyslipidemia External hemorrhoids Heart disease History of urinary tract infection Hospital discharge follow-up Hypertension Hypokalemia Hypothyroidism Irritable bowel syndrome Localized swelling, mass and lump, unspecified Microscopic colitis Migraines Pleuritic chest pain Pneumonia due to COVID-19 virus Surgical History Surgical History H/O excision of dermoid cyst 03/22/2014 09/06/2018 History of heart artery stent History of hernia repair 08/06/2016 Family History Family History Father Heart disease Mother Hypertension Depression Cerebrovascular accident Other Inflammatory bowel disease Social History Social History Social History: The patient is and lives in [place] with her . She is a lifelong nonsmoker. No alcohol or illicit substance abuse. Her Josh is her surrogate decision maker and she wishes to be a full code. Caffeine-daily Smoking status: Never smoker Alcohol intake: never Do You Feel Safe in your Home?: Yes Lack of Transportation: No Lack of Food: Never True Current Housing: I Have Housing Concerned About Future Housing: No Difficulty Paying Gas/Electric Bills: No Difficulty Paying for Meds: No Currently Unemployed: No Education: High School Diploma/GED Difficulty w/ Childcare or Family Care: No Spiritual care concerns: No Exam Narrative: EXAMINATION OF ORGAN SYSTEMS/BODY AREAS: Constitutional: Vital signs per nursing GENERAL: Anxious and almost tearful HEAD: Normal with no signs of head trauma. EYES: EOMI, conjunctiva normal ENT: Hearing grossly intact LUNGS: Nonlabored breathing. HEART: [Regular rate and rhythm] ABD: [Soft], [nontender to palpation] EXT: Normal range of motion SKIN: [No rashes or lesions.] NEURO: [Alert and oriented x 3. No gross focal sensory or strength deficits.] PSYCH: Very anxious affect Course Vital Signs Vital signs: Vital Signs Temperature 97.7 F 10/25/23 00:34 Pulse Rate 90 10/25/23 00:34 Respiratory Rat
== END 2023-10-25 04:03 | disposition home or self-care (01) ==
PROVIDERS: Emergency Provider Emergency Medicine; PCP Clinical Nurse Specialist
DX: R11.2 Nausea with vomiting, unspecified (principal); F41.9 Anxiety disorder, unspecified; I25.10 Atherosclerotic heart disease of native coronary artery without angina pectoris; I11.9 Hypertensive heart disease without heart failure; E78.5 Hyperlipidemia, unspecified; E03.9 Hypothyroidism, unspecified; K58.9 Irritable bowel syndrome, unspecified; F32.A Depression, unspecified; Z95.5 Presence of coronary angioplasty implant and graft; Z87.440 Personal history of urinary (tract) infections; Z86.16 Personal history of COVID-19; Z87.01 Personal history of pneumonia (recurrent); Z79.82 Long term (current) use of aspirin; Z79.899 Other long term (current) drug therapy; R94.31 Abnormal electrocardiogram [ECG] [EKG]
CPT/HCPCS: 36415; 80053; 83690; 85025; 93005; 96361; 96374; 96375; 99284; A9270; J2060; J2405; J7030

== ENCOUNTER 2023-10-26 15:17 | Outpatient (CLI) | payer MEDICARE, BC, SELFPAY ==
--- NOTE | ~2023-10-26 | CT_ITS ---
EXAMINATION:CT diagnostic chest wo con DATE: 10/26/2023 15:30 INDICATION: Nonspecific abnormal finding of lung field on chest radiograph. TECHNIQUE: Computed tomography (CT) of the chest was performed without intravenous contrast. Automate d exposure control and iterative reconstruction technique were employed. The dose-length product (DLP ) was 178.51 mGy-cm. COMPARISON: Chest CT 05/09/2020, chest CT 10/22/2023 FINDINGS: There is mild scarring at the lung apices. There is mild atelectasis bilaterally. There are centrilobular nodules and tree-in-bud opacities in right upper lobe, consistent with pneumonia. Ther e is mild bronchiectasis in anterior segment right upper lobe. No pleural effusion. The heart size is normal. No pericardial effusion. There are coronary artery calcifications. There is mild thoracic sp ondylosis. IMPRESSION: 1. Mild right upper lobe pneumonia. Reviewed, dictated and finalized at location A.
== END 2023-10-26 15:18 ==
LOC: GOSHIMG 15:18
PROVIDERS: PCP Clinical Nurse Specialist; Visit Provider Clinical Nurse Specialist
DX: J18.9 Pneumonia, unspecified organism (principal); R91.8 Other nonspecific abnormal finding of lung field
CPT/HCPCS: 71250

== ENCOUNTER 2023-11-03 09:53 | Outpatient (CLI) | payer MEDICARE, BC, SELFPAY ==
--- NOTE | 2023-11-05 11:50 | P.PCNPFT_ITS ---
PFT Procedure Performed PFT Procedure Performed Spirometry with Pre/Post Bronchodilator Plethysmography (Lung Vol) Diffusing Cap (DLCO) Flow Vol Loop PFT Interpretation DOS: 11/03/2023 REQUESTING: Pneumonia REASON FOR TESTING: KENNY Dobbins-C PULMONARY FUNCTION TESTS Repeatability of spirometry FEV1 maneuver pre-bronchodilator is Grade A. Repeatability of spirometry FEV1 maneuver pre-bronchodilator is Grade B. Spirometry: The pre-bronchodilator FEV1 is 2.04 L, 107%, normal. The pre-b ronchodilator FVC is 2.82 L, 117%, normal. The FEV1/FVC ratio is 72%, normal. After bronchodilator, the FEV1 is 2.26 L, 119%, +11%. The FVC is 2.91 L, 121%, +3%. The FEV1/FVC ratio is 78%, normal. Lung volumes: The total lung capacity is 5.04 L, 121%, normal. The FRC is 2.92 L, 116%, normal. The residual volume is 1.98 L, 108%, normal. The RV/TLC is 39%, normal. Diffusion: DLCO is 12.7, 63%, below the lower limits of normal. The DLCO/VA is 3.32, 74%, within normal range. Flow volume loop: The flow volume loop is normal. IMPRESSION: This study shows normal spirometry without significant response to bronchodilator, normal lung volumes and minimal diffusion impairment that corrects for alveolar volume Manju Gray MD
== END 2023-11-03 09:54 | disposition home or self-care (01) ==
LOC: ANHPFT 09:57
PROVIDERS: PCP Clinical Nurse Specialist; Visit Provider Clinical Nurse Specialist
DX: J18.9 Pneumonia, unspecified organism (principal)
CPT/HCPCS: 94060; 94726; 94729

== ENCOUNTER 2024-02-14 01:40 | Inpatient (IN) | payer MEDICARE, BC, SELFPAY ==
[2024-02-14] VITALS (44 sets, daily range): BP systolic 95–199; BP diastolic 58–111; PULSE 73–157; RESP 13–24; TEMP 34.6–37.6; O2SAT 90–100; BMI 28.5
--- NOTE | ~2024-02-14 | XR_ITS ---
EXAMINATION: XR chest 1V portable DATE: 02/14/2024 03:15 INDICATION: Sepsis. TECHNIQUE: A single frontal view of the chest was obtained. COMPARISON: Chest 2 views 10/22/2023, CT abdomen and pelvis 02/14/2024 FINDINGS: There is mild atelectasis at left lung base. No pleural effusion or pneumothorax. The heart size is normal. IMPRESSION: 1. Mild atelectasis at left lung base. Reviewed, dictated and finalized at location A. CARE PROVIDER
--- NOTE | ~2024-02-14 | CT_ITS ---
EXAMINATION: CT abdomen pelvis wo con DATE: 02/14/2024 03:57 INDICATION: Abdominal pain. Nausea and vomiting. TECHNIQUE: Computed tomography (CT) of the abdomen and pelvis was performed without intravenous contr ast. Automated exposure control and iterative reconstruction technique were employed. The dose-length product was 669.87 mGy-cm. COMPARISON: Chest CT 10/26/2023, 05/09/20 FINDINGS: The visualized portions of the lung bases demonstrate mild atelectasis. No pleural effusion . The heart size is normal. There are coronary artery calcifications. No pericardial effusion. There is a small sliding hiatal hernia. The liver, gallbladder, spleen, pancreas, adrenal glands, and kidne ys are normal. There is a Chery catheter in the bladder. The bladder is distended. There are no dilat ed loops of bowel. The appendix is normal. There are no pathologically enlarged lymph nodes. There is no free intraperitoneal fluid. There is moderate lumbar spondylosis. IMPRESSION: 1. Small sliding hiatal hernia. Reviewed, dictated and finalized at location A. T LINER HELPER
[2024-02-14] MEDS: ONDANSETRON INJ 4 MG/2 ML VIAL IV PUSH ×3 (02:21→17:22)
--- NOTE | 2024-02-14 02:29 | ECG_ITS ---
Test Date: 2024-02-14 03:15:25 Measurements Intervals [place] Rate: 120 P: 0 AK: 0 QRS: 76 QRSD: 164 T: 22 QT: 378 QTc: 536 Interpretive Statements ATRIAL FIBRILLATION WITH RAPID VENTRICULAR RESPONSE RIGHT BUNDLE BRANCH BLOCK [120+ ms QRS DURATION, UPRIGHT V1, 40+ ms S IN I/aVL/V4/V5/V6] ST DEPRESSION, CONSIDER SUBENDOCARDIAL INJURY [0.1+ mV ST DEPRESSION] Compared to ECG 10/25/2023 02:07:22 Right bundle-branch block now present ST (T wave) deviation now present Sinus rhythm no longer present Electronically Signed On 02-14-2024 12:10:18 [address]ADER by Liang Blackwell M.D.
--- NOTE | 2024-02-14 02:35 | ED.NAVMDI ---
HPI - Nausea/Vomiting/Diarrhea General Chief complaint: Nausea/Vomiting/Diarrhea <Bekah Colunga PA-C - Last Filed: 02/14/24 03:01> Stated complaint: dizzy, n/v <Bekah Colunga PA-C - Last Filed: 02/14/24 03:01> Time Seen by Provider: 02/14/24 02:15 <Bekah Colunga PA-C - Last Filed: 02/14/24 03:01> History of Present Illness HPI Narrative: 63-year-old female with history of hypertension, hypothyroidism, lymphocytic colitis presents to the emergency department with at bedside for nausea, vomiting since midnight. Patient is ill-appearing and retching on exam. assist with history. States the patient felt somewhat nauseous prior to bed but otherwise in was in her normal state of health. At midnight she woke up and had an episode of vomiting and began feeling very ill. She is reporting diffuse abdominal pain and concerns for dehydration. She states that she has had similar episodes and has attributed it to her lymphocytic colitis. She sees a specialist for this at [facility]. She denies known fever. States that she has had approximately 7 episodes of diarrhea daily for several months. She is reporting tingling in her chest, hands and feet. Denies cough or congestion, shortness of breath. she notes that she is on Macrobid currently for UTI. Reporting pressure in her suprapubic region and diffuse abdominal pain. <Bekah Colunga PA-C - Last Filed: 02/14/24 03:01> Related Data Home medications: Home Medications Medication Instructions Recorded Confirmed aspirin 81 mg tablet 81 mg PO DAILY 05/08/20 12/07/23 cholecalciferol (vitamin D3) 25 25 mcg PO DAILY 05/09/20 12/07/23 mcg (1,000 unit) capsule (Vitamin D3) metoprolol tartrate 25 mg tablet 12.5 mg PO BID 06/11/20 12/07/23 atorvastatin 40 mg tablet 40 mg PO DAILY 12/19/21 12/07/23 multivitamin 1 tablet PO DAILY 02/27/23 12/07/23 diphenoxylate-atropine 2.5 1 tablet PO DAILY 12/07/23 12/07/23 mg-0.025 mg tablet <Bekah Colunga PA-C - Last Filed: 02/14/24 03:01> Allergies/Adverse reactions: Allergies Allergy/AdvReac Type Severity Reaction Status Date / Time codeine Allergy Hives Verified 12/07/23 09:00 doxycycline Allergy headaches Verified 12/07/23 09:00 hydrocodone Allergy Hives Verified 12/07/23 09:00 morphine Allergy nausea/vomi Verified 12/07/23 09:00 ting pneumococcal vaccine Allergy Hives Verified 12/07/23 09:00 [From Pneumovax-] Sulfa (Sulfonamide Allergy Hives Verified 12/07/23 09:00 Antibiotics) <Bekah Colunga PA-C - Last Filed: 02/14/24 03:01> Review of Systems Review of Systems: All systems reviewed & are unremarkable except as noted in HPI and below <Bekah Colunga PA-C - Last Filed: 02/14/24 03:01> [facility] Past Medical History Medical History: Medical History Abnormal chest x-ray Acute hypokalemia Acute sinusitis Anemia Anxiety Cervical radiculopathy Coronary artery disease Cough COVID-19 (Unknown) Depression Dyslipidemia External hemorrhoids Heart disease History of urinary tract infection Hospital discharge follow-up Hypertension Hypokalemia Hypothyroidism Irritable bowel syndrome Localized swelling, mass and lump, unspecified Microscopic colitis Migraines Pleuritic chest pain Pneumonia due to COVID-19 virus <Bekah Colunga PA-C - Last Filed: 02/14/24 03:01> Surgical History Surgical History: Surgical History H/O excision of dermoid cyst 03/22/2014 09/06/2018 History of heart artery stent History of hernia repair 08/06/2016 <Bekah Colunga PA-C - Last Filed: 02/14/24 03:01> Family History Family History: Family History Father Heart disease Mother Hypertension Depression Cerebrovascular accident Other Inflammatory bowel disease <Bekah Colunga PA-C - Last Filed: 02/14/24 03:01> Social History Social History: Social History Social History: The patient is and lives in [place] with her . She is a lifelong nonsmoker. No alcohol or illicit substance abuse. Her Josh is her surrogate decision maker and she wishes to be a full code. Caffeine-daily Smoking status: Never smoker Alcohol intake: never Do You Feel Safe in your Home?: Yes Lack of Transportation: No Lack of Food: Never True Current Housing: I Have Housing Concerned About Future Housing: No Difficulty Paying Gas/Electric Bills: No Difficulty Paying for Meds: No Currently Unemployed: No Education: High School Diploma/GED Difficulty w/ Childcare or Family Care: No Spiritual care concerns: No <BRAYAN Romero Last Filed: 02/14/24 03:01> Exam Narrative: GENERAL: Ill-appearing, Diaphoretic, actively retching HEAD: Normocephalic, atraumatic. EYES: PERRLA and EOMI. ENT: Nares clear, no rhinorrhea or epistaxis. Mucous membranes moist. NECK: Supple. CHEST: Clear to auscultation. No respiratory distress. HEART: Regular rate and rhythm. No murmur heard. Normal peripheral pulses. ABDOMEN: Soft, nontender, nondistended, normal active bowel sounds. EXTREMITIES: Normal range of motion. No edema. SKIN: Warm, dry, no rash. NEURO: No focal deficits. Alert and oriented x3 <Bekah Colunga PA-C - Last Filed: 02/14/24 03:01> Course Vital Signs Vital signs: Vital Signs Pulse Rate 93 02/14/24 01:47 Respiratory Rate 24 H 02/14/24 01:47 Blood Pressure 199/89 H 02/14/24 01:47 Pulse Oximetry 99 02/14/24 01:47 Temperature 37.0 C 02/14/24 06:48 Pulse Rate 102 H 02/14/24 06:57 Respiratory Rate 17 02/14/24 06:01 Blood Pressure 133/84 02/14/24 06:57 Pulse Oximetry 93 02/14/24 06:01 <Bekah Colunga PA-C - Last Filed: 02/14/24 03:01> Vital Signs Pulse Rate 93 02/14/24 01:47 Respiratory Rate 24 H 02/14/24 01:47 Blood Pressure 199/89 H 02/14/24 01:47 Pulse Oximetry 99 02/14/24 01:47 Temperature 37.0 C 02/14/24 06:48 Pulse Rate 102 H 02/14/24 06:57 Respiratory Rate 17 02/14/24 06:01 Blood Pressure 133/84 02/14/24 06:57 Pulse Oximetry 93 02/14/24 06:01 <Alexis Arrieta MD - Last Filed: 02/14/24 07:12> MDM - Nausea/Vomiting/Diarrhea MDM Narrative Medical decision making narrative: 63-year-old female presents to the emergency department for nausea, vomiting and abdominal pain. Triage vitals with blood pressure 199/89 tachypnea of 24. She is hypothermic with a rectal temp of 95.9?. She is very ill appearing on exam, clammy and diaphoretic, pale and retching. Her abdomen is soft with minimal tenderness throughout. Concern for sepsis. Sepsis protocol initiated with 30 mL/kg of fluids, broad-spectrum antibiotics, lab work, lactic acid, EKG, chest x-ray, CT abdomen pelvis, UA, TSH,blood cultures. she was given IV Reglan and Zofran and a temp sensing Chery catheter was inserted. Zoila Hugger placed. Pending workup at time of sign-out to Dr. Arrieta. <Bekah Colunga PA-C - Last Filed: 02/14/24 03:01> 63-year-old female presents to the emergency department for nausea, vomiting and abdominal pain. Triage vitals with blood pressure 199/89 tachypnea of 24. She is hypothermic with a rectal temp of 95.9?. She is very ill appearing on exam, clammy and diaphoretic, pale and retching. Her abdomen is soft with minimal tenderness throughout. She has recently been treated for urinary tract infection with Macrobid and this could be potentially going into her blood stream which raises concern for sepsis. Sepsis protocol initiated with 30 mL/kg of fluids, broad-spectrum antibiotics, lab work, lactic acid, EKG, chest x-ray, CT abdomen pelvis, UA, TSH,blood cultures. she was given IV Reglan and Zofran and a temp sensing Chery catheter was inserted. Zoila Hugger placed. Pending workup at time of sign-out to Dr. Arrieta. Patient signed out to me by previous provider at 3:00 a.m. pending workup for sepsis. On my initial evaluation of the patient patient is very ill appearing, under a Zoila Hugger for hypothermia. She does diaphoretic, awake and answering questions, complaining of persistent nauseousness despite Zofran and Reglan infusion. Blood work started to come back ankle white count 5.5, hemoglobin 12.6 and normal platelets. Overall reassuring CBC. Normal coagulation study. Her CMP is markedly deranged including a potassium of 2.3 which is critically low, normal BUN and creatinine. Glucose within normal limits. Lactic acid elevated 4.4., magnesium 1.9. Initial troponin negative. Normal TSH, negative lipase. I went and re-evaluated the patient and she had improvement her blood pressure but started to become severely tachycardic with atrial fibrillation now developing on the monitor. She has no documented history of AFib and she denies any history of irregular heartbeat her AFib. confirms no history of this. EKG was obtained which shows atrial fibrillation with rapid ventricular response with concerns for potential rate pain ischemia with the deep ST depressions which are seen globally. Given the profound hypokalemia that was on her laboratory studies likely secondary to GI losses from her profound nausea, vomiting and diarrhea these past few days, I am concerned that her electrolytes are causing her dysrhythmia presently and not secondary to acute ischemic event. IV potassium and IV magnesium were ordered. She was given a 2 g bolus of IV magnesium at bedside and this improved her heart rate down into the 110s from 160, still atrial fibrillation on the monitor. Patient had shortness of breath when the heart rate was in the 160s but states this resolved now. Patient was stable for CT scan images at this time to see if she has any intra-abdominal process that could be causing this given that her states she has a history of chronic diarrhea and previous colonic infections. This CT scan was obtained and interpreted by [facility] without any acute findings. Her urinalysis also shows no remaining urinary infection, chest x-ray does not show any focal consolidations or concerns for pneumonia. She remains on IV antibiotics at this time including vancomycin and Zosyn. Patient was re-evaluated frequently and starting to have return of her elevated heart rates into the 160s to 170s. She is already on 40 mg of IV potassium currently being infused so I ordered an additional 40 mg given that she is profoundly hypokalemic. She is given another 2 g of magnesium and this did significantly changed her heart rate or rhythm. Decision was made to give her a dose of 0.25 milligram/kilogram of Cardizem at this time for rate control at this time until we can correct the underlying process likely hypokalemia causing her dysrhythmia. Blood pressure still stable. After the Cardizem infusion she had improvement in the heart rates down into the 90's in her blood pressure was stable 110/75. This quickly rebounded back into the 120 sore Cardizem infusion was started while we can continue treating her hypokalemia. 3 hour troponin and EKG pending at this time. Patient required admission to the hospital for continued evaluation and treatment. Hypothermia improving on zoila hugger to 97.4F. I spoke to the ICU auto glass technician Dr. Harman over the phone. We went over patient's imaging studies, laboratory assessment, plan of care going forward treating her AFib with Cardizem until we can correct the hypokalemia. Patient will remain on IV antibiotics until blood cultures and further workup conducted. Patient has been accepted to the ICU at this time and we are awaiting hospitalist consultations for admission. <Alexis Arrieta MD - Last Filed: 02/14/24 07:12> Medical Records Attestation: I reviewed the patient's medical records. <Alexis Arrieta MD - Last Filed: 02/14/24 07:12> Lab Data Attestation: I reviewed the patient's lab results. <Alexis Arrieta MD - Last Filed: 02/14/24 07:12> Result diagrams: 02/14/24 02:44 02/14/24 05:45 <Bekah Colunga PA-C - Last Filed: 02/14/24 03:01> Labs: Lab Results 02/14/24 02/14/24 02/14/24 Range/Units 02:44 04:19 05:45 WBC 5.5 (4.5-10.0) K/mm3 RBC 4.43 (4.2-5.4) M/mm3 Hgb 12.6 (12.0-15.0) g/dL Hct 37.9 (37.0-47.0) % MCV 85.6 (80-100) fl MCH 28.4 (26-34) pg MCHC 33.2 (32-36) g/dl RDW 13.6 (11.5-14.5) % Plt Count 279 (150-375) k/mm3 MPV 10.1 (7.4-10.4) fl Immature Gran % (Auto) 0.5 (0-0.5) % Neut % (Auto) 66.7 (45.5-73.1) % Lymph % (Auto) 25.6 (18.3-44.2) % [place] % (Auto) 5.4 (2.6-8.5) % Eos % (Auto) 1.3 (0-4.4) % Baso % (Auto) 0.5 (0.2-1.2) % Lymph # (Auto) 1.42 (0.9-3.2) K/mm3 [place] # (Auto) 0.3 (0.1-0.6) K/mm3 Eos # (Auto) 0.1 (0-0.3) K/mm3 Baso # (Auto) 0.0 (0.0-0.1) K/mm3 Abs Immat Gran (auto) 0.03 (0.00-0.031) K/mm3 Absolute Neuts (auto) 3.7 (1.3-6.7) K/mm3 Absolute Nucleated RBC 0.000 (0.0-0.012) K/mm3 Nucleated RBC % 0.0 (0.0-0.2) % PT 12.3 (11.1-14.7) Seconds INR 0.9 APTT 25.8 (22.3-36.8) Seconds Sodium 139 142 (137-145) mmol/L Potassium 2.3 L* 2.9 L (3.4-5.0) mmol/L Chloride 108 H 109 H (98-107) mmol/L Carbon Dioxide 21 L 25 (22-30) mmol/L Anion Gap 10 8 (4-12) mmol/L BUN 11 D 9 (7-17) mg/dL Creatinine 0.60 L 0.50 L (0.7-1.0) mg/dL Estim Creat Clear Calc 71 83 ml/min Estimated GFR > 60 > 60 (59 - ) Glucose 178 H 146 H (65-110) mg/dL Lactic Acid 4.4 H* (0.7-2.0) mmol/L Calcium 8.9 8.0 L (8.4-10.2) mg/dL Magnesium 1.9 (1.6-2.3) mg/dL Total Bilirubin 0.6 (0.2-1.3) mg/dL AST 50 H (14-36) U/L ALT 35 (6-35) U/L Alkaline Phosphatase 90 (38-126) U/L Troponin I < 0.012 < 0.012 (0.000-0.034) ng/mL C-Reactive Protein < 0.5 (<1.0) mg/dL Total Protein 8.0 (6.3-8.2) g/dL Albumin 4.6 (3.5-5.1) g/dL Lipase 171 (23-300) U/L TSH (Reflex) 0.915 (0.465-4.68) uIU/mL Urine Color Yellow (Yellow) Urine Appearance Clear (Clear) Urine pH 6.5 (5.0-9.0) Ur Specific Rugby 1.008 (1.001-1.035) Urine Protein Negative (Negative) mg/dL Urine Glucose (UA) Negative (Negative) mg/dL Urine Ketones Negative (Negative) mg/dL Ur Blood (Man) Negative (Negative) Urine Nitrate Negative (Negative) Urine Bilirubin Negative (Negative) Urine Urobilinogen 0.2 (<2.0) mg/dL Leukocyte Esterase Rfl Negative (Negative) CHARLENE/UL Nasal MRSA (PCR) Detected A* (NOT DETECTE) 02/14/24 Range/Units 06:25 WBC (4.5-10.0) K/mm3 RBC (4.2-5.4) M/mm3 Hgb (12.0-15.0) g/dL Hct (37.0-47.0) % MCV (80-100) fl MCH (26-34) pg MCHC (32-36) g/dl RDW (11.5-14.5) % Plt Count (150-375) k/mm3 MPV (7.4-10.4) fl Immature Gran % (Auto) (0-0.5) % Neut % (Auto) (45.5-73.1) % Lymph % (Auto) (18.3-44.2) % [place] % (Auto) (2.6-8.5) % Eos % (Auto) (0-4.4) % Baso % (Auto) (0.2-1.2) % Lymph # (Auto) (0.9-3.2) K/mm3 [place] # (Auto) (0.1-0.6) K/mm3 Eos # (Auto) (0-0.3) K/mm3 Baso # (Auto) (0.0-0.1) K/mm3 Abs Immat Gran (auto) (0.00-0.031) K/mm3 Absolute Neuts (auto) (1.3-6.7) K/mm3 Absolute Nucleated RBC (0.0-0.012) K/mm3 Nucleated RBC % (0.0-0.2) % PT (11.1-14.7) Seconds INR APTT (22.3-36.8) Seconds Sodium (137-145) mmol/L Potassium (3.4-5.0) mmol/L Chloride (98-107) mmol/L Carbon Dioxide (22-30) mmol/L Anion Gap (4-12) mmol/L BUN (7-17) mg/dL Creatinine (0.7-1.0) mg/dL Estim Creat Clear Calc ml/min Estimated GFR (59 - ) Glucose (65-110) mg/dL Lactic Acid 1.7 (0.7-2.0) mmol/L Calcium (8.4-10.2) mg/dL Magnesium (1.6-2.3) mg/dL Total Bilirubin (0.2-1.3) mg/dL AST (14-36) U/L ALT (6-35) U/L Alkaline Phosphatase (38-126) U/L Troponin I (0.000-0.034) ng/mL C-Reactive Protein (<1.0) mg/dL Total Protein (6.3-8.2) g/dL Albumin (3.5-5.1) g/dL Lipase (23-300) U/L TSH (Reflex) (0.465-4.68) uIU/mL Urine Color (Yellow) Urine Appearance (Clear) Urine pH (5.0-9.0) Ur Specific Rugby (1.001-1.035) Urine Protein (Negative) mg/dL Urine Glucose (UA) (Negative) mg/dL Urine Ketones (Negative) mg/dL Ur Blood (Man) (Negative) Urine Nitrate (Negative) Urine Bilirubin (Negative) Urine Urobilinogen (<2.0) mg/dL Leukocyte Esterase Rfl (Negative) CHARLENE/UL Nasal MRSA (PCR) (NOT DETECTE) <Bekah Colunga PA-C - Last Filed: 02/14/24 03:01> Lab Results 02/14/24 02/14/24 02/14/24 Range/Units 02:44 04:19 05:45 WBC 5.5 (4.5-10.0) K/mm3 RBC 4.43 (4.2-5.4) M/mm3 Hgb 12.6 (12.0-15.0) g/dL Hct 37.9 (37.0-47.0) % MCV 85.6 (80-100) fl MCH 28.4 (26-34) pg MCHC 33.2 (32-36) g/dl RDW 13.6 (11.5-14.5) % Plt Count 279 (150-375) k/mm3 MPV 10.1 (7.4-10.4) fl Immature Gran % (Auto) 0.5 (0-0.5) % Neut % (Auto) 66.7 (45.5-73.1) % Lymph % (Auto) 25.6 (18.3-44.2) % [place] % (Auto) 5.4 (2.6-8.5) % Eos % (Auto) 1.3 (0-4.4) % Baso % (Auto) 0.5 (0.2-1.2) % Lymph # (Auto) 1.42 (0.9-3.2) K/mm3 [place] # (Auto) 0.3 (0.1-0.6) K/mm3 Eos # (Auto) 0.1 (0-0.3) K/mm3 Baso # (Auto) 0.0 (0.0-0.1) K/mm3 Abs Immat Gran (auto) 0.03 (0.00-0.031) K/mm3 Absolute Neuts (auto) 3.7 (1.3-6.7) K/mm3 Absolute Nucleated RBC 0.000 (0.0-0.012) K/mm3 Nucleated RBC % 0.0 (0.0-0.2) % PT 12.3 (11.1-14.7) Seconds INR 0.9 APTT 25.8 (22.3-36.8) Seconds Sodium 139 142 (137-145) mmol/L Potassium 2.3 L* 2.9 L (3.4-5.0) mmol/L Chloride 108 H 109 H (98-107) mmol/L Carbon Dioxide 21 L 25 (22-30) mmol/L Anion Gap 10 8 (4-12) mmol/L BUN 11 D 9 (7-17) mg/dL Creatinine 0.60 L 0.50 L (0.7-1.0) mg/dL Estim Creat Clear Calc 71 83 ml/min Estimated GFR > 60 > 60 (59 - ) Glucose 178 H 146 H (65-110) mg/dL Lactic Acid 4.4 H* (0.7-2.0) mmol/L Calcium 8.9 8.0 L (8.4-10.2) mg/dL Magnesium 1.9 (1.6-2.3) mg/dL Total Bilirubin 0.6 (0.2-1.3) mg/dL AST 50 H (14-36) U/L ALT 35 (6-35) U/L Alkaline Phosphatase 90 (38-126) U/L Troponin I < 0.012 < 0.012 (0.000-0.034) ng/mL C-Reactive Protein < 0.5 (<1.0) mg/dL Total Protein 8.0 (6.3-8.2) g/dL Albumin 4.6 (3.5-5.1) g/dL Lipase 171 (23-300) U/L TSH (Reflex) 0.915 (0.465-4.68) uIU/mL Urine Color Yellow (Yellow) Urine Appearance Clear (Clear) Urine pH 6.5 (5.0-9.0) Ur Specific [place] 1.008 (1.001-1.035) Urine Protein Negative (Negative) mg/dL Urine Glucose (UA) Negative (Negative) mg/dL Urine Ketones Negative (Negative) mg/dL Ur Blood (Man) Negative (Negative) Urine Nitrate Negative (Negative) Urine Bilirubin Negative (Negative) Urine Urobilinogen 0.2 (<2.0) mg/dL Leukocyte Esterase Rfl Negative (Negative) CHARLENE/UL Nasal MRSA (PCR) Detected A* (NOT DETECTE) 02/14/24 Range/Units 06:25 WBC (4.5-10.0) K/mm3 RBC (4.2-5.4) M/mm3 Hgb (12.0-15.0) g/dL Hct (37.0-47.0) % MCV (80-100) fl MCH (26-34) pg MCHC (32-36) g/dl RDW (11.5-14.5) % Plt Count (150-375) k/mm3 MPV (7.4-10.4) fl Immature Gran % (Auto) (0-0.5) % Neut % (Auto) (45.5-73.1) % Lymph % (Auto) (18.3-44.2) % [place] % (Auto) (2.6-8.5) % Eos % (Auto) (0-4.4) % Baso % (Auto) (0.2-1.2) % Lymph # (Auto) (0.9-3.2) K/mm3 [place] # (Auto) (0.1-0.6) K/mm3 Eos # (Auto) (0-0.3) K/mm3 Baso # (Auto) (0.0-0.1) K/mm3 Abs Immat Gran (auto) (0.00-0.031) K/mm3 Absolute Neuts (auto) (1.3-6.7) K/mm3 Absolute Nucleated RBC (0.0-0.012) K/mm3 Nucleated RBC % (0.0-0.2) % PT (11.1-14.7) Seconds INR APTT (22.3-36.8) Seconds Sodium (137-145) mmol/L Potassium (3.4-5.0) mmol/L Chloride (98-107) mmol/L Carbon Dioxide (22-30) mmol/L Anion Gap (4-12) mmol/L BUN (7-17) mg/dL Creatinine (0.7-1.0) mg/dL Estim Creat Clear Calc ml/min Estimated GFR (59 - ) Glucose (65-110) mg/dL Lactic Acid 1.7 (0.7-2.0) mmol/L Calcium (8.4-10.2) mg/dL Magnesium (1.6-2.3) mg/dL Total Bilirubin (0.2-1.3) mg/dL AST (14-36) U/L ALT (6-35) U/L Alkaline Phosphatase (38-126) U/L Troponin I (0.000-0.034) ng/mL C-Reactive Protein (<1.0) mg/dL Total Protein (6.3-8.2) g/dL Albumin (3.5-5.1) g/dL Lipase (23-300) U/L TSH (Reflex) (0.465-4.68) uIU/mL Urine Color (Yellow) Urine Appearance (Clear) Urine pH (5.0-9.0) Ur Specific [place] (1.001-1.035) Urine Protein (Negative) mg/dL Urine Glucose (UA) (Negative) mg/dL Urine Ketones (Negative) mg/dL Ur Blood (Man) (Negative) Urine Nitrate (Negative) Urine Bilirubin (Negative) Urine Urobilinogen (<2.0) mg/dL Leukocyte Esterase Rfl (Negative) CHARLENE/UL Nasal MRSA (PCR) (NOT DETECTE) <Alexis Arrieta MD - Last Filed: 02/14/24 07:12> Imaging Data Attestation: I personally reviewed and interpreted this imaging study as follows: <Alexis Arrieta MD - Last Filed: 02/14/24 07:12> My impression: No acute consolidations or obvious pneumonia on the chest x-ray. <Alexis Arrieta MD - Last Filed: 02/14/24 07:12> Radiologist's impression: CT scan read by [facility] shows no acute findings in the after or pelvis. Chery catheter in place. <Alexis Arrieta MD - Last Filed: 02/14/24 07:12> ECG Data EKG #1: Attestation: I personally reviewed and interpreted this ECG as follows: <Alexis Arrieta MD - Last Filed: 02/14/24 07:12> ECG completion date: 02/14/24 <Alexis Arrieta MD - Last Filed: 02/14/24 07:12> ECG completion time: 03:15 <Alexis Arireta MD - Last Filed: 02/14/24 07:12> Prior ECG tracings: available for review <Alexis Arrieta MD - Last Filed: 02/14/24 07:12> Ischemic changes: non-specific ST-T wave changes and other <Alexis Arrieta MD - Last Filed: 02/14/24 07:12> Interpretation: Right bundle branch block, atrial fibrillation with rapid ventricular response, diffuse ST segment depressions, no ST segment elevations. QTC prolonged at 536, QRS 164, no identifiable P waves. Overall interpreted as atrial fibrillation with RVR and a right bundle branch block as well as a prolonged QTC interval <Alexis Arrieta MD - Last Filed: 02/14/24 07:12> EKG Interpretation: tachycardia, atrial fibrillation, ST depression, RBBB and prolonged QT <Alexis Arrieta MD - Last Filed: 02/14/24 07:12> EKG #2: Attestation: I personally reviewed and interpreted this ECG as follows: <Alexis Arrieta MD - Last Filed: 02/14/24 07:12> ECG completion date: 02/14/24 <Alexis Arrieta MD - Last Filed: 02/14/24 07:12> ECG completion time: 05:35 <Alexis Arrieta MD - Last Filed: 02/14/24 07:12> Prior ECG tracings: available for review <Alexis Arrieta MD - Last Filed: 02/14/24 07:12> Ischemic changes: non-specific ST-T wave changes <Alexis Arrieta MD - Last Filed: 02/14/24 07:12> Interpretation: Persistent atrial fibrillation with rapid ventricular response, right bundle branch block, slight ST depressions globally but no ST segment elevations. No significant interval change compared to previous EKG. QTC remained slightly prolonged at 502 milliseconds, QRS of 144. Overall right bundle-branch block with AFib RVR. <Alexis Arrieta MD - Last Filed: 02/14/24 07:12> EKG Interpretation: atrial fibrillation, non-specific ST changes, ST depression, RBBB, prolonged QT and no acute changes <Alexis Arrieta MD - Last Filed: 02/14/24 07:12> Critical Care Time Critical Care Time Critical Care Time: Yes <Alexis Arrieta MD - Last Filed: 02/14/24 07:12> Total Critical Care Time: 107 <Alexis Arrieta MD - Last Filed: 02/14/24 07:12> Discharge Plan Discharge Clinical Impression: Acute hypokalemia, New onset a-fib, Atrial fibrillation with rapid ventricular response, Sepsis, Intractable nausea and vomiting, Diarrhea, Hypothermia, not associated with low environmental temperature <Bekah Colunga PA-C - Last Filed: 02/14/24 03:01> Patient Disposition: Still a Patient <Bekah Colunga PA-C - Last Filed: 02/14/24 03:01> Prescriptions: No Action atorvastatin 40 mg tablet 40 mg PO DAILY meclizine 25 mg tablet 25 mg PO BID PRN (Reason: dizziness) Qty: 30 0RF alprazolam [Xanax] 0.25 mg tablet 0.25 mg PO DAILY PRN (Reason: anxiety) Qty: 30 0RF diphenoxylate-atropine 2.5-0.025 mg tablet 1 tablet PO DAILY metoprolol tartrate 25 mg tablet 12.5 mg PO BID levothyroxine 88 mcg tablet See Rx Instructions .ROUTE .COMPLEX Qty: 90 3RF Dose Instruction: Take 1 tablet by mouth once daily Rx Instructions: Take 1 tablet by mouth once daily venlafaxine 75 mg capsule,extended release 24hr 75 mg PO DAILY Qty: 90 3RF multivitamin Tablet 1 tablet PO DAILY aspirin 81 mg Tablet 81 mg PO DAILY cholecalciferol (vitamin D3) [Vitamin D3] 25 mcg (1,000 unit) Capsule 25 mcg PO DAILY albuterol sulfate 90 mcg/actuation HFA aerosol inhaler 2 puff inhalation Q4H PRN (Reason: shortness of breath or wheezing) Qty: 6.7 0RF fluticasone propion-salmeterol [Advair Diskus] 250-50 mcg/dose blister with device 1 inh inhalation BID Qty: 60 3RF lisinopril 40 mg tablet 40 mg PO DAILY Qty: 90 1RF <Bekah Colunga PA-C - Last Filed: 02/14/24 03:01> Follow-up/Referrals: Brianna Eldridge, [employer] [Primary Care Provider] - <Bekah Colunga PA-C - Last Filed: 02/14/24 03:01> Time of Disposition: 06:50 <Bekah Colunga PA-C - Last Filed: 02/14/24 03:01> 06:50 <Alexis Arrieta MD - Last Filed: 02/14/24 07:12>
[2024-02-14] MEDS: LACTATED RINGERS 1,000 ML 999 ML IV CONT ×2 (02:42→02:52)
[2024-02-14] MEDS: METOCLOPRAMIDE HCL INJ 10 MG/2 ML VIAL IV PUSH (02:53)
[2024-02-14 02:55] LABS: Add Urine Microscopic? NO; Appearance Urine Clear (Clear); Basophils Percent Auto 0.5 % (0.2-1.2); Bilirubin Urine Negative (Negative); Blood Urine Negative (Negative); Color Urine Yellow (Yellow); Eosinophils Absolute Auto 0.1 K/mm3 (0-0.3); Eosinophils Percent Auto 1.3 % (0-4.4); Glucose Urine UA Negative (Negative); Hematocrit 37.9 % (37.0-47.0); Hemoglobin 12.6 g/dL (12.0-15.0); Immature Granulocyte Absolute 0.03 K/mm3 (0.00-0.031); Immature Granulocyte Percent A 0.5 % (0-0.5); Ketones Urine Negative (Negative); Leukocyte Esterase Ur Negative LEU/UL (Negative); Lymphocytes Absolute Auto 1.42 K/mm3 (0.9-3.2); Lymphocytes Percent Auto 25.6 % (18.3-44.2); Mean Corpuscular HGB Conc 33.2 g/dl (32-36); Mean Corpuscular Hemoglobin 28.4 pg (26-34); Mean Corpuscular Volume 85.6 fl (80-100); Mean Platelet Volume 10.1 fl (7.4-10.4); Monocytes Absolute Auto 0.3 K/mm3 (0.1-0.6); Monocytes Percent Auto 5.4 % (2.6-8.5); Neutrophils Absolute Auto 3.7 K/mm3 (1.3-6.7); Neutrophils Percent Auto 66.7 % (45.5-73.1); Nitrate Urine Negative (Negative); Platelet Count Result 279 k/mm3 (150-375); Protein Urine Negative (Negative); Red Blood Count 4.43 M/mm3 (4.2-5.4); Red Cell Distribution Width 13.6 % (11.5-14.5); Specific Grav Ur 1.008 (1.001-1.035); Urobilinogen Urine 0.2 mg/dL (<2.0); White Blood Count 5.5 K/mm3 (4.5-10.0); pH Urine 6.5 (5.0-9.0)
[2024-02-14] MEDS: PIPERACILLN/TAZ 3.375GM/NS50ML 3.375 GM/50 ML BAG IVPB ×5 (02:56→23:05)
[2024-02-14 03:10] LABS: Lactic Acid Reflex 4.4 mmol/L (0.7-2.0)
[2024-02-14 03:11] LABS: Alanine Aminotransferase 35 U/L (6-35); Albumin Level 4.6 g/dL (3.5-5.1); Alkaline Phosphatase 90 U/L (38-126); Anion Gap 10 mmol/L (4-12); Aspartate Amino Transferase 50 U/L (14-36); Bilirubin,Total 0.6 mg/dL (0.2-1.3); Blood Urea Nitrogen 11 mg/dL (7-17); Calcium 8.9 mg/dL (8.4-10.2); Carbon Dioxide 21 mmol/L (22-30); Chloride 108 mmol/L (98-107); Estimated CRCL calculation 71 ml/min; Estimated Glomerular Filt Rate > 60; Glucose 178 mg/dL (65-110); Lipase 171 U/L (23-300); Potassium 2.3 mmol/L (3.4-5.0); Sodium 139 mmol/L (137-145)
--- NOTE | 2024-02-14 03:11 | ECG_ITS ---
Test Date: 2024-02-14 05:35:08 Measurements Intervals [place] Rate: 117 P: 0 WI: 0 QRS: 69 QRSD: 144 T: 11 QT: 359 QTc: 502 Interpretive Statements ATRIAL FIBRILLATION WITH RAPID VENTRICULAR RESPONSE RIGHT BUNDLE BRANCH BLOCK [120+ ms QRS DURATION, UPRIGHT V1, 40+ ms S IN I/aVL/V4/V5/V6] ST DEPRESSION, CONSIDER SUBENDOCARDIAL INJURY [0.1+ mV ST DEPRESSION] Compared to ECG 02/14/2024 03:15:25 No significant changes Electronically Signed On 02-14-2024 12:10:34 [employer] by Liang Blackwell M.D.
[2024-02-14 03:15] LABS: INR 0.9; Prothrombin Time 12.3 Seconds (11.1-14.7); Troponin I < 0.012 ng/mL (0.000-0.034)
[2024-02-14 03:16] LABS: Partial Thromboplastin Time 25.8 Seconds (22.3-36.8)
[2024-02-14 03:23] LABS: CRP < 0.5 mg/dL (<1.0)
[2024-02-14 03:33] LABS: Magnesium 1.9 mg/dL (1.6-2.3)
[2024-02-14] MEDS: MAGNESIUM SULF 2 GM/WATER 50ML 2 GM/50 ML BAG IVPB ×2 (03:35→04:54)
[2024-02-14] MEDS: POTASSIUM CHLORIDE INJ 40 MEQ in SODIUM CHLORIDE 0.9% IV 500 ML 130 MEQ IVPB ×2 (03:36→04:40)
[2024-02-14 04:05] LABS: Thyroid Stimulating Hormone Reflex 0.915 uIU/mL (0.465-4.68)
[2024-02-14] MEDS: VANCOMYCIN 1,750 MG/NS 500 ML 1,750 MG/500 ML BAG 250 MG IVPB (04:16)
[2024-02-14] MEDS: dilTIAZem HCl INJ 25 MG/5 ML VIAL (05:06)
--- NOTE | 2024-02-14 05:06 | PC.NURSE ---
per edp dr. wilson pt to recieve bolus infusion of magnesium at a rate of 999mls/ hour. this rn used closed loop communication to confirm rate/ dose/ patient/ route/ time. edp dr. vazquez verbalized confirmation . edp dr. wilson vorb 20mg of dilitiazem iv push due to patient hr at 167 in afib. this rn used closed loop communication to confirm route/ medication/ patient/ time/ rate. franchesca spencer verified dosage.
[2024-02-14] MEDS: dilTIAZem 100 MG/100 ML 100 MG/100 ML BAG IV CONT ×2 (05:40→11:35)
[2024-02-14 05:52] LABS: Reflex Lactic Acid Yes or No Add Lactic
[2024-02-14 06:02] LABS: MRSA (PCR) DETECTED (NOT DETECTE)
[2024-02-14 06:02] LABS: Anion Gap 8 mmol/L (4-12); Blood Urea Nitrogen 9 mg/dL (7-17); Carbon Dioxide 25 mmol/L (22-30); Chloride 109 mmol/L (98-107); Estimated CRCL calculation 83 ml/min; Estimated Glomerular Filt Rate > 60; Glucose 146 mg/dL (65-110); Potassium 2.9 mmol/L (3.4-5.0); Sodium 142 mmol/L (137-145)
[2024-02-14 06:14] LABS: Troponin I < 0.012 ng/mL (0.000-0.034)
[2024-02-14 06:44] LABS: Lactic Acid 1.7 mmol/L (0.7-2.0)
--- NOTE | 2024-02-14 08:00 | PC.NURSE ---
This patient, Ely Wei, was admitted to Intensive Care Unit-5. Patient/family oriented to hospital policies and general routines including ID bracelet, bed and alarms, visiting hours, pain management, procedures, bathroom and other care routines, personal items, smoking policy, room service/diet, and visiting hours. Information on how to activate the Rapid Response Team has been discussed. Patient/Family are encouraged to report perceived risks to care and to ask questions if they do not understand what they are told or what they should do.
[2024-02-14] MEDS: LACTATED RINGERS 1,000 ML 100 ML IV CONT ×2 (08:24→17:20)
[2024-02-14] MEDS: PROCHLORPERAZINE EDISYLATE 10 MG/2 ML VIAL IV PUSH (08:32)
[2024-02-14 09:23] LABS: Troponin I 0.018 ng/mL (0.000-0.034)
--- NOTE | 2024-02-14 10:50 | WPDCNINT ---
Assessment and Plan Assessment and plan (1) Sepsis: Code(s): A41.9 - Sepsis, unspecified organism Status: Acute Assessment and Plan: Patient presented with hypovolemia, lactic acidosis, electrolyte imbalance, hypothermic -initial lactic acid was 4.4, received 30 mL/kg IV fluid bolus -repeat lactic acid was 1.7 -hypothermia resolved with Darell Hugger -urine output has been adequate -patient started on Zosyn and vancomycin (02/13) -blood pressures have been stable -02/13: Blood cultures have been ordered and pending -02/13: Urine cultures have been ordered (2) Intractable nausea and vomiting: Code(s): R11.2 - Nausea with vomiting, unspecified Status: Acute Assessment and Plan: Patient presented with gastroenteritis with nausea, vomiting and diarrhea, likely dehydration, electrolyte disturbances with hypokalemia and hypomagnesemia -could be related to gastroenteritis versus lymphocytic colitis which the patient has history of -continue maintenance IV fluids with LR -replace potassium, magnesium and other electrolytes as necessary (3) Diarrhea: Code(s): R19.7 - Diarrhea, unspecified Status: Acute Assessment and Plan: Patient has been having significant diarrhea secondary to lymphocytic colitis which she has a history of -patient is on Lomotil at home, she continues to have diarrhea will restart her Lomotil (4) Atrial fibrillation with rapid ventricular response: Code(s): I48.91 - Unspecified atrial fibrillation Status: Acute Assessment and Plan: New onset AFib RVR could be related to sepsis, electrolyte imbalance -according the ER notes when patient was given potassium and magnesium a AFib RVR rates improved -patient is on Cardizem infusion, currently in sinus rhythm, rate controlled -patient continues to receive potassium IV, will recheck, BMP after IV potassium chloride is completed (5) Acute hypokalemia: Code(s): E87.6 - Hypokalemia Status: Acute Assessment and Plan: Hypokalemia likely related to diarrhea, nausea, vomiting -continue to replete and recheck (6) Hypothermia, not associated with low environmental temperature: Code(s): R68.0 - Hypothermia, not associated with low environmental temperature Status: Acute Assessment and Plan: Hypothermia likely related to sepsis, gastroenteritis, hypovolemia -patient was on Darell Hugger, currently body temperatures have been stable (7) Hypothyroidism: Qualifiers: Hypothyroidism type: acquired Qualified Code(s): E03.9 - Hypothyroidism, unspecified Code(s): E03.9 - Hypothyroidism, unspecified Status: Acute Assessment and Plan: Has been having nausea, will switch levothyroxine to IV (8) Microscopic colitis: Qualifiers: Microscopic colitis type: lymphocytic colitis Qualified Code(s): K52.832 - Lymphocytic colitis Code(s): K52.839 - Microscopic colitis, unspecified Status: Acute Assessment and Plan: Patient complaining more of nausea and vomiting then diarrhea -will hold Lomotil for now, if continues to have diarrhea complains of diarrhea will restart low motel Plan DVT prophylaxis: SCDs Stress ulcer prophylaxis: Protonix Nutrition: NPO for now Code Status: Full code Critical Care Time Spent: 49 minutes Discussed with patient's and daughter in rounds and updated them with patient's condition and plan of care. I explained to them that she has gastroenteritis, electrolyte abnormality, new onset AFib RVR currently in sinus rhythm on diltiazem infusion. State aware that she is on antibiotics for sepsis as a lactic acid was 4.4. They are aware that her blood and urine cultures have been obtained and pending and that we will keep them posted once they are resulted. I answered all the questions Due to a high probability of clinically significant, life threatening deterioration, the patient required my highest level of preparedness to intervene emergently and I personally spent this critical care time directly and personally managing the patient. This critical care time included obtaining a history; examining the patient; pulse oximetry; ordering and review of studies; arranging urgent treatment with development of a management plan; evaluation of patient's response to treatment; frequent reassessment; and discussions with other providers. It was exclusive of separately billable procedures and treating other patients and teaching time. Please see Assessment and Plan section and the rest of the note for further information on patient assessment and treatment This dictation may have been done utilizing a voice recognition system. Attempts have been made to correct errors. However, there may be uncorrected grammatical, spelling, and recognitions errors present. Crew Lead Consult Note Consult date: 02/14/24 Reason for consult: Sepsis, dehydration, nausea, vomiting, diarrhea, hypothermic, new onset AFib RVR HPI: Ely Wei is a 63 year old female with significant past medical history of hypokalemia, anemia, anxiety, coronary artery disease, depression, history of COVID-19, hyperlipidemia, history of urinary tract infection, hypertension, hypothyroidism, leukocytic colitis for which she is being treated at [facility] presented the ED on 02/14/2024 with complains of nausea, vomiting, diarrhea, dehydration. Discussed with patient's daughter and , she had recently been on a flight, they have all eaten food all the long for Thanksgiving. No in the house other than has been having gastrointestinal symptoms. And was found to be hypothermic with body temperature of 94.3?, patient was placed on Darell Hugger with improvement in body temperature. Patient also was hypokalemic with a potassium level of 2.9, was given 80 mEq of IV potassium and 4 g of magnesium. Did have AFib RVR which seemed to have improved with electrolyte replacement. Currently on diltiazem infusion which was started in the ER, now in sinus rhythm, rate controlled, hemodynamically stable. Patient was started on Zosyn and vancomycin, blood and urine cultures were obtained. Patient was being treated for UTI as outpatient with Macrobid and receive 6 days treatment from a total of 7 days. Patient was transferred to the ICU for further management Patient seen and examined the ICU, is awake, alert, oriented, continues to be nauseous, was given Compazine which improved her nausea. Patient the chest pain, shortness of breath, abdominal pain but has been complaining of nausea, vomiting and diarrhea for the last 24-48 hours. Urine output has been adequate after IV fluid administration in the ER (she received 30 mL/kg IV fluids) Currently pressures have been stable, body temperature is are within normal limits, urine output has been adequate. Patient's daughter and at bedside Review of Systems Review of Systems: All systems reviewed & are unremarkable except as noted in HPI and below PMFSH Past Medical History Medical History (Updated 02/14/24 @ 11:00 by Fina Harman MD) Abnormal chest x-ray Acute hypokalemia Acute sinusitis Anemia Anxiety Cervical radiculopathy Colitis Coronary artery disease Cough COVID-19 (Unknown) Depression Dyslipidemia External hemorrhoids Heart disease History of urinary tract infection Hospital discharge follow-up Hypertension Hypokalemia Hypothyroidism Irritable bowel syndrome Localized swelling, mass and lump, unspecified Microscopic colitis Migraines Pleuritic chest pain Pneumonia due to COVID-19 virus Surgical History Surgical History H/O excision of dermoid cyst 03/22/2014 09/06/2018 History of heart artery stent History of hernia repair 08/06/2016 Family History Family History Father Heart disease Mother Hypertension Depression Cerebrovascular accident Other Inflammatory bowel disease Social History Social History Social History: The patient is and lives in [place] with her . She is a lifelong nonsmoker. No alcohol or illicit substance abuse. Her Josh is her surrogate decision maker and she wishes to be a full code. Caffeine-daily Smoking status: Never smoker Alcohol intake: never Substance use: never Do You Feel Safe in your Home?: Yes Lack of Transportation: No Lack of Food: Never True Current Housing: I Have Housing Concerned About Future Housing: No Difficulty Paying Gas/Electric Bills: No Difficulty Paying for Meds: No Currently Unemployed: No Education: High School Diploma/GED Difficulty w/ Childcare or Family Care: No Spiritual care concerns: No Meds Home Medications and Allergies Home Medications Medication Instructions Recorded Confirmed Type aspirin 81 mg tablet 81 mg PO DAILY 05/08/20 02/14/24 History cholecalciferol (vitamin D3) 25 25 mcg PO DAILY 05/09/20 02/14/24 History mcg (1,000 unit) capsule (Vitamin D3) metoprolol tartrate 25 mg tablet 12.5 mg PO BID 06/11/20 02/14/24 History atorvastatin 40 mg tablet 40 mg PO DAILY 12/19/21 02/14/24 History levothyroxine 88 mcg tablet See Rx Instructions .Route 01/15/23 02/14/24 Rx .COMPLEX #90 tabs venlafaxine 75 mg capsule,extended 75 mg PO DAILY #90 caps 01/15/23 02/14/24 Rx release 24 hr multivitamin 1 tablet PO DAILY 02/27/23 02/14/24 History meclizine 25 mg tablet 25 mg PO BID PRN dizziness #30 tabs 04/08/23 02/14/24 Rx alprazolam 0.25 mg tablet (Xanax) 0.25 mg PO DAILY PRN anxiety #30 08/03/23 02/14/24 Rx tabs albuterol sulfate 90 mcg/actuation 2 puff inhalation Q4H PRN 10/06/23 02/14/24 Rx aerosol inhaler shortness of breath or wheezing #6.7 grams fluticasone 250 mcg-salmeterol 50 1 inh inhalation BID #60 ea 11/20/23 02/14/24 Rx mcg/dose blistr powdr for inhalation (Advair Diskus) diphenoxylate-atropine 2.5 1 tablet PO DAILY 12/07/23 02/14/24 History mg-0.025 mg tablet lisinopril 40 mg tablet 40 mg PO DAILY #90 tabs 02/03/24 02/14/24 Rx Allergies Allergy/AdvReac Type Severity Reaction Status Date / Time codeine Allergy Hives Verified 12/07/23 09:00 doxycycline Allergy headaches Verified 12/07/23 09:00 hydrocodone Allergy Hives Verified 12/07/23 09:00 morphine Allergy nausea/vomi Verified 12/07/23 09:00 ting pneumococcal vaccine Allergy Hives Verified 12/07/23 09:00 [From Pneumovax-23] Sulfa (Sulfonamide Allergy Hives Verified 12/07/23 09:00 Antibiotics) Vital Signs Vital Signs - 24 hr 02/14/24 01:47 02/14/24 02:37 02/14/24 03:01 Temperature 95.9 F L 94.8 F L Pulse Rate 93 91 Respiratory Rate 24 H 19 Blood Pressure 199/89 H 157/74 H Pulse Oximetry 99 100 02/14/24 03:08 02/14/24 03:23 02/14/24 03:38 Temperature 94.3 F L 95.1 F L 95.2 F L Pulse Rate Respiratory Rate Blood Pressure Pulse Oximetry 02/14/24 03:38 02/14/24 03:58 02/14/24 04:00 Temperature 94.6 F L 95.0 F L 95.1 F L Pulse Rate 130 H 127 H 128 H Respiratory Rate 19 17 17 Blood Pressure 159/99 H 122/88 137/82 Pulse Oximetry 100 98 100 02/14/24 04:08 02/14/24 04:30 02/14/24 04:30 Temperature 95.3 F L 96 F L 95.8 F L Pulse Rate 125 H Respiratory Rate 23 H Blood Pressure 172/111 H Pulse Oximetry 90 02/14/24 05:00 02/14/24 05:05 02/14/24 05:08 Temperature 96.6 F L Pulse Rate 157 H 104 H Respiratory Rate Blood Pressure Pulse Oximetry 02/14/24 04:45 02/14/24 05:05 02/14/24 05:40 Temperature 96.2 F L 96.7 F L Pulse Rate 137 H 106 H 110 H Respiratory Rate 19 19 Blood Pressure 171/109 H 95/58 L 135/83 Pulse Oximetry 93 94 02/14/24 05:06 02/14/24 05:15 02/14/24 05:16 Temperature 96.7 F L 96.8 F L 96.8 F L Pulse Rate 96 109 H 106 H Respiratory Rate 18 19 16 Blood Pressure 111/75 Pulse Oximetry 96 97 95 02/14/24 05:30 02/14/24 05:31 02/14/24 05:45 Temperature 97.0 F L 97.0 F L 97.3 F L Pulse Rate 120 H 120 H 125 H Respiratory Rate 22 H 21 H 19 Blood Pressure 135/83 141/91 H Pulse Oximetry 92 94 97 02/14/24 05:46 02/14/24 05:30 02/14/24 06:00 Temperature 97.3 F L 97 F L 97.4 F L Pulse Rate 121 H Respiratory Rate 15 Blood Pressure Pulse Oximetry 97 02/14/24 06:01 02/14/24 06:14 02/14/24 06:48 Temperature 97.6 F 98.6 F Pulse Rate 122 H 121 H Respiratory Rate 17 Blood Pressure 137/84 137/84 Pulse Oximetry 93 02/14/24 06:57 02/14/24 07:30 02/14/24 08:19 Temperature Pulse Rate 102 H 116 H 91 Respiratory Rate 20 Blood Pressure 133/84 125/72 126/64 Pulse Oximetry 95 02/14/24 09:35 02/14/24 10:34 Temperature Pulse Rate 73 81 Respiratory Rate Blood Pressure 126/68 130/77 Pulse Oximetry Exam Narrative: General: Pleasant female, complains of nausea but no the distress HEENT:? Pupils equal and reactive, sclera is clear, moist oral mucosa Neck:? Supple Respiratory:, clear to auscultation bilateral, no wheezing, adequate air entry Cardiac:? S1-S2 normal, regular rate and rhythm Abdomen:? Soft, nontender, nondistended, hypoactive bowel sounds Extremities: No edema, palpable pedal pulses Neuro:? Patient is awake, alert, oriented x3, nonfocal Skin:? Warm and dry Psych:? Normal mentation and affect Results Labs 02/14/24 02:44 02/14/24 05:45 Labs: Short CBC 02/14/24 Range/Units 02:44 WBC 5.5 (4.5-10.0) K/mm3 Hgb 12.6 (12.0-15.0) g/dL Hct 37.9 (37.0-47.0) % Plt Count 279 (150-375) k/mm3 BMP 02/14/24 02/14/24 02:44 05:45 Sodium 139 142 Potassium 2.3 L* 2.9 L Chloride 108 H 109 H Carbon Dioxide 21 L 25 BUN 11 D 9 Creatinine 0.60 L 0.50 L Glucose 178 H 146 H Calcium 8.9 8.0 L Cardiac Enzymes 02/14/24 02/14/24 02/14/24 Range/Units 02:44 05:45 08:53 Troponin I < 0.012 < 0.012 0.018 D (0.000-0.034) ng/mL Liver Function 02/14/24 Range/Units 02:44 Total Bilirubin 0.6 (0.2-1.3) mg/dL AST 50 H (14-36) U/L ALT 35 (6-35) U/L Alkaline Phosphatase 90 (38-126) U/L Albumin 4.6 (3.5-5.1) g/dL Urine 02/14/24 Range/Units 02:44 Urine Color Yellow (Yellow) Urine Appearance Clear (Clear) Urine pH 6.5 (5.0-9.0) Ur Specific [place] 1.008 (1.001-1.035) Urine Protein Negative (Negative) mg/dL Urine Glucose (UA) Negative (Negative) mg/dL
[2024-02-14] MEDS: PANTOPRAZOLE SODIUM IV 40 MG VIAL IV PUSH ×2 (11:35→20:05)
[2024-02-14 13:18] LABS: Potassium 3.9 mmol/L (3.4-5.0)
[2024-02-14 13:49] LABS: Hemoglobin A1C 5.7 % (<5.7)
--- NOTE | 2024-02-14 15:07 | P.HP_ITS ---
H&P: HPI History of Present Illness Date/Time: 02/14/24 15:07 Chief Complaint: vomiting and diarrhea Narrative: 63 year old female with significant past medical history of hypokalemia, anemia, anxiety, coronary artery disease, depression, history of COVID-19, hyperlipidemia, history of urinary tract infection, hypertension, hypothyroidism, lymphocytic colitis who presented to the ER on account of vomiting and diarrhea associated with lightheadedness. Denies any chest pain, shortness over, no fever no personal no focal symptoms. Patient noted she was diagnosed of Lymphocytic colitis with chronic diarrhea, noted that she has about 6-9 episodes per day. However she noted that yesterday she has many episodes within a few hours yesterday and vomiting which caused her lightheadedness prompting presentation to the ER. ER eval notable for T 94.8, IA 91, RR 19, BP 157/74. labs notable K 2.3, lactic 4.4 repeat 1.7. MRSA positive Review of Systems Review of Systems: All other systems reviewed and negative except as noted in the history above. [facility] Past Medical History Medical History (Updated 02/14/24 @ 11:00 by Fina Harman MD) Abnormal chest x-ray Acute hypokalemia Acute sinusitis Anemia Anxiety Cervical radiculopathy Colitis Coronary artery disease Cough COVID-19 (Unknown) Depression Dyslipidemia External hemorrhoids Heart disease History of urinary tract infection Hospital discharge follow-up Hypertension Hypokalemia Hypothyroidism Irritable bowel syndrome Localized swelling, mass and lump, unspecified Microscopic colitis Migraines Pleuritic chest pain Pneumonia due to COVID-19 virus Surgical History Surgical History H/O excision of dermoid cyst 03/22/2014 09/06/2018 History of heart artery stent History of hernia repair 08/06/2016 Family History Family History Father Heart disease Mother Hypertension Depression Cerebrovascular accident Other Inflammatory bowel disease Social History Social History Social History: The patient is and lives in [place] with her . She is a lifelong nonsmoker. No alcohol or illicit substance abuse. Her Josh is her surrogate decision maker and she wishes to be a full code. Caffeine-daily Smoking status: Never smoker Alcohol intake: never Substance use: never Do You Feel Safe in your Home?: Yes Lack of Transportation: No Lack of Food: Never True Current Housing: I Have Housing Concerned About Future Housing: No Difficulty Paying Gas/Electric Bills: No Difficulty Paying for Meds: No Currently Unemployed: No Education: High School Diploma/GED Difficulty w/ Childcare or Family Care: No Spiritual care concerns: No Meds Home Medications and Allergies Home Medications Medication Instructions Recorded Confirmed Type aspirin 81 mg tablet 81 mg PO DAILY 05/08/20 02/14/24 History cholecalciferol (vitamin D3) 25 25 mcg PO DAILY 05/09/20 02/14/24 History mcg (1,000 unit) capsule (Vitamin D3) metoprolol tartrate 25 mg tablet 12.5 mg PO BID 06/11/20 02/14/24 History atorvastatin 40 mg tablet 40 mg PO DAILY 12/19/21 02/14/24 History levothyroxine 88 mcg tablet See Rx Instructions .Route 01/15/23 02/14/24 Rx .COMPLEX #90 tabs venlafaxine 75 mg capsule,extended 75 mg PO DAILY #90 caps 01/15/23 02/14/24 Rx release 24 hr multivitamin 1 tablet PO DAILY 02/27/23 02/14/24 History meclizine 25 mg tablet 25 mg PO BID PRN dizziness #30 tabs 04/08/23 02/14/24 Rx alprazolam 0.25 mg tablet (Xanax) 0.25 mg PO DAILY PRN anxiety #30 08/03/23 02/14/24 Rx tabs albuterol sulfate 90 mcg/actuation 2 puff inhalation Q4H PRN 10/06/23 02/14/24 Rx aerosol inhaler shortness of breath or wheezing #6.7 grams fluticasone 250 mcg-salmeterol 50 1 inh inhalation BID #60 ea 11/20/23 02/14/24 Rx mcg/dose blistr powdr for inhalation (Advair Diskus) diphenoxylate-atropine 2.5 1 tablet PO DAILY 12/07/23 02/14/24 History mg-0.025 mg tablet lisinopril 40 mg tablet 40 mg PO DAILY #90 tabs 02/03/24 02/14/24 Rx Allergies Allergy/AdvReac Type Severity Reaction Status Date / Time codeine Allergy Hives Verified 12/07/23 09:00 doxycycline Allergy headaches Verified 12/07/23 09:00 hydrocodone Allergy Hives Verified 12/07/23 09:00 morphine Allergy nausea/vomi Verified 12/07/23 09:00 ting pneumococcal vaccine Allergy Hives Verified 12/07/23 09:00 [From Pneumovax-] Sulfa (Sulfonamide Allergy Hives Verified 12/07/23 09:00 Antibiotics) Vital Signs Vital Signs - 24 hr 02/14/24 01:47 02/14/24 02:37 02/14/24 03:01 Temperature 95.9 F L 94.8 F L Pulse Rate 93 91 Respiratory Rate 24 H 19 Blood Pressure 199/89 H 157/74 H Pulse Oximetry 99 100 Oxygen Delivery 02/14/24 03:08 02/14/24 03:23 02/14/24 03:38 Temperature 94.3 F L 95.1 F L 95.2 F L Pulse Rate Respiratory Rate Blood Pressure Pulse Oximetry Oxygen Delivery 02/14/24 03:38 02/14/24 03:58 02/14/24 04:00 Temperature 94.6 F L 95.0 F L 95.1 F L Pulse Rate 130 H 127 H 128 H Respiratory Rate 19 17 17 Blood Pressure 159/99 H 122/88 137/82 Pulse Oximetry 100 98 100 Oxygen Delivery 02/14/24 04:08 02/14/24 04:30 02/14/24 04:30 Temperature 95.3 F L 96 F L 95.8 F L Pulse Rate 125 H Respiratory Rate 23 H Blood Pressure 172/111 H Pulse Oximetry 90 Oxygen Delivery 02/14/24 05:00 02/14/24 05:05 02/14/24 05:08 Temperature 96.6 F L Pulse Rate 157 H 104 H Respiratory Rate Blood Pressure Pulse Oximetry Oxygen Delivery 02/14/24 04:45 02/14/24 05:05 02/14/24 05:40 Temperature 96.2 F L 96.7 F L Pulse Rate 137 H 106 H 110 H Respiratory Rate 19 19 Blood Pressure 171/109 H 95/58 L 135/83 Pulse Oximetry 93 94 Oxygen Delivery 02/14/24 05:06 02/14/24 05:15 02/14/24 05:16 Temperature 96.7 F L 96.8 F L 96.8 F L Pulse Rate 96 109 H 106 H Respiratory Rate 18 19 16 Blood Pressure 111/75 Pulse Oximetry 96 97 95 Oxygen Delivery 02/14/24 05:30 02/14/24 05:31 02/14/24 05:45 Temperature 97.0 F L 97.0 F L 97.3 F L Pulse Rate 120 H 120 H 125 H Respiratory Rate 22 H 21 H 19 Blood Pressure 135/83 141/91 H Pulse Oximetry 92 94 97 Oxygen Delivery 02/14/24 05:46 02/14/24 05:30 02/14/24 06:00 Temperature 97.3 F L 97 F L 97.4 F L Pulse Rate 121 H Respiratory Rate 15 Blood Pressure Pulse Oximetry 97 Oxygen Delivery 02/14/24 06:01 02/14/24 06:14 02/14/24 06:48 Temperature 97.6 F 98.6 F Pulse Rate 122 H 121 H Respiratory Rate 17 Blood Pressure 137/84 137/84 Pulse Oximetry 93 Oxygen Delivery 02/14/24 06:57 02/14/24 07:30 02/14/24 08:19 Temperature Pulse Rate 102 H 116 H 91 Respiratory Rate 20 Blood Pressure 133/84 125/72 126/64 Pulse Oximetry 95 Oxygen Delivery 02/14/24 09:35 02/14/24 10:34 02/14/24 08:30 Temperature Pulse Rate 73 81 Respiratory Rate Blood Pressure 126/68 130/77 Pulse Oximetry Oxygen Delivery Room Air 02/14/24 08:30 02/14/24 08:06 02/14/24 10:00 Temperature 98.7 F Pulse Rate 85 94 75 Respiratory Rate 19 Blood Pressure 131/63 Pulse Oximetry 94 Oxygen Delivery 02/14/24 10:00 02/14/24 11:35 02/14/24 12:00 Temperature 98.4 F Pulse Rate 75 84 78 Respiratory Rate 19 Blood Pressure 125/58 L 134/75 138/75 Pulse Oximetry 93 Oxygen Delivery 02/14/24 12:00 02/14/24 12:00 02/14/24 14:00 Temperature 98.8 F Pulse Rate 87 78 86 Respiratory Rate 18 Blood Pressure 138/75 133/74 Pulse Oximetry 92 Oxygen Delivery 02/14/24 14:00 02/14/24 14:00 Temperature 99.4 F Pulse Rate 79 79 Respiratory Rate 21 H Blood Pressure 133/74 Pulse Oximetry 92 Oxygen Delivery Exam Narrative: General: alert and comfortable Eyes: EOMI, PERRLA ENNT External ears normal, Neck is supple, no masses, Respiratory systems: Clear to auscultation Cardiovascular S1, S2, normal rhythm, no murmur, rub, or gallop; no thrill or palpable murmurs on palpation. Gastrointestinal: soft, non-tender, and non-distended abdomen with no masses; BS present Skin: no rash, lesions, ulcerations, subcutaneous nodules or induration Musculoskeletal: no abnormality and no tenderness, normal ROM Neurologic: Alert and oriented x3, non focal Mental Status Exam: normal affect H&P: Results Labs Labs: Short CBC 02/14/24 Range/Units 02:44 WBC 5.5 (4.5-10.0) K/mm3 Hgb 12.6 (12.0-15.0) g/dL Hct 37.9 (37.0-47.0) % Plt Count 279 (150-375) k/mm3 BMP 02/14/24 02/14/24 02/14/24 02:44 05:45 13:05 Sodium 139 142 Potassium 2.3 L* 2.9 L 3.9 Chloride 108 H 109 H Carbon Dioxide 21 L 25 BUN 11 D 9 Creatinine 0.60 L 0.50 L Glucose 178 H 146 H Calcium 8.9 8.0 L Cardiac Enzymes 02/14/24 02/14/24 02/14/24 Range/Units 02:44 05:45 08:53 Troponin I < 0.012 < 0.012 0.018 D (0.000-0.034) ng/mL Liver Function 02/14/24 Range/Units 02:44 Total Bilirubin 0.6 (0.2-1.3) mg/dL AST 50 H (14-36) U/L ALT 35 (6-35) U/L Alkaline Phosphatase 90 (38-126) U/L Albumin 4.6 (3.5-5.1) g/dL Urine 02/14/24 Range/Units 02:44 Urine Color Yellow (Yellow) Urine Appearance Clear (Clear) Urine pH 6.5 (5.0-9.0) Ur Specific [place] 1.008 (1.001-1.035) Urine Protein Negative (Negative) mg/dL Urine Glucose (UA) Negative (Negative) mg/dL Assessment and Plan Assessment and plan (1) Acute hypokalemia: Code(s): E87.6 - Hypokalemia Status: Acute (2) New onset a-fib: Code(s): I48.91 - Unspecified atrial fibrillation Status: Acute (3) Atrial fibrillation with rapid ventricular response: Code(s): I48.91 - Unspecified atrial fibrillation Status: Acute (4) Diarrhea: Code(s): R19.7 - Diarrhea, unspecified Status: Acute Plan Afib RVR, new onset Patient denies any history of Afib Contineu Diltiazem infusion, Full dose lovenox [id number] score of 3 ECHO, TSH and cardiology consulted Hypothermia with elevated lactic acid Temperature improved with bear hugger Lactic acid resolved with IV fluid CXR and CT AP no acute changes Continue abx for now monitor Hypokalemia K 2.9 on admission repalced and repeat 3.9 monitor and replaced accordingly mag Lymphocytic colitis with chronic diarrhea patient noted she failed Budesonide And her GI planning on starting her on biologic MRSA positive COntinue BActroban Hypothyroidism continue home meds DVT prophylaxis on full dose lovenox Full code Dc Wei
[2024-02-14] MEDS: VANCOMYCIN 1,250 MG/NS 250 ML 1,250 MG/250 ML BAG 166.67 MG IVPB (15:45)
[2024-02-14] MEDS: ACETAMINOPHEN 325 MG TABLET 650 MG PO (16:16)
[2024-02-14] MEDS: hydrALAZINE HCL 20 MG/ML VIAL 10 MG IV PUSH (18:11)
[2024-02-14] MEDS: LORazepam INJ (*CRX) 2 MG/ML VIAL 0.5 MG IV PUSH (19:38)
[2024-02-14] MEDS: ENOXAPARIN 80 MG/0.8 ML SYRINGE 65 MG SUB-Q (20:05)
[2024-02-15] VITALS (23 sets, daily range): BP systolic 109–173; BP diastolic 61–95; PULSE 68–106; RESP 12–23; TEMP 36.9–38; O2SAT 91–98
--- NOTE | 2024-02-15 | ECHO_ITS ---
Patient Info Name: Ely Wei Age: 63 years : 1960 Gender: Female Ht: 61 in Wt: 150 lbs BSA: 1.73 m2 HR: 83 bpm BP: 161 / 76 mmHg Heart Rhythm: Sinus Rhythm Technical Quality: Fair Exam Date: 02/15/2024 1:36 PM Exam Location: Echo Lab Patient Status: Inpatient Admit Date: 02/14/2024 Staff Ordering Physician: Maxwell Garcia MD Manager Financial: Riya Sharif RDCS Attending Provider: Riri Schroeder DO Exam Type: CA echo doppler color flow Study Info Indications - afib Complete two-dimensional, color flow and Doppler transthoracic echocardiogram is performed with contrast to opacify the left ventricle and to improve the deliniation of the left ventricle endocardial borders. Contrast/Agitated Saline Contrast/Ag. Saline: Definity Amount: 2.00 ml Administered By: Riya Sharif RDCS Existing IV Access: Yes IV Access Condition: patent with no signs of infiltration Summary 1. Left ventricular chamber dimension is normal. 2. Left ventricular systolic function is normal, estimated at 65-70%. 3. There is mildly increased left ventricular wall thickness. 4. The left ventricular diastolic function is grade I diastolic dysfunction. 5. Right ventricular systolic function is normal. 6. There is mild aortic valve regurgitation. 7. There is mild mitral valve regurgitation. 8. There is mild tricuspid valve regurgitation. Left Ventricle Left ventricular chamber dimension is normal. Left ventricular systolic function is normal, estimated at 65-70%. There is mildly increased left ventricular wall thickness. The left ventricular diastolic function is grade I diastolic dysfunction. Right Ventricle Right ventricular chamber dimension is normal. Right ventricular systolic function is normal. Left Atria Left atrial chamber dimension is normal. Right Atria Right atrial chamber dimension is normal. Atrial Septum Intact interatrial septum visualized by color flow imaging. Aortic Valve The aortic valve is trileaflet. There is no aortic valve stenosis. There is mild aortic valve regurgitation. There is mild aortic valve calcification. Pulmonic Valve The pulmonic valve is not well visualized. There is no pulmonic regurgitation. Mitral Valve There is mild mitral valve regurgitation. Tricuspid Valve There is mild tricuspid valve regurgitation. Pericardium/Pleural The pericardium appears epicardial fat pad. There is no pericardial effusion. Inferior Vena Cava Normal inferior vena cava with >50% collapse upon inspiration consistent with normal right atrial pressure, 3 mmHg. Aorta The aortic root size at the sinus of Valsalva is normal. Left Ventricular Outflow Tract Name Value Normal LVOT 2D LVOT Diameter 2.0 cm LVOT Doppler LVOT Peak Gradient 5 mmHg LVOT Mean Gradient 2 mmHg LVOT VTI 22 cm LVOT VTI/AV VTI Ratio 0.8 LVOT Stroke Volume 71 ml LVOT CO 5.2 l/min LVOT CI 3.0 l/min/m2 Pulmonic Valve Name Value Normal RVOT Doppler RVOT Peak Gradient 2 mmHg PV Doppler PV Peak Gradient 5 mmHg Mitral Valve Name Value Normal MV Doppler MV Decel [place] 667 cm/s2 MV PHT 46 ms MV Area (PHT) 4.8 cm2 4.0-5.0 MV Diastolic Function MV E Peak Velocity 106 cm/s MV A Peak Velocity 115 cm/s MV E/A 0.9 MV Decel Time 159 ms MV Annular TDI MV E/e' (Septal) 14.3 <=8.0 MV E/e' (Lateral) 10.8 <=8.0 MV E/e' (Average) 12.6 Tricuspid Valve Name Value Normal TV Regurgitation Doppler TR Peak Velocity 178 cm/s TR Peak Gradient 13 mmHg Estimated PAP/RSVP RA Pressure 3 mmHg <=5 PA Systolic Pressure 16 mmHg <36 RV Systolic Pressure 16 mmHg <36 Aorta Name Value Normal Ascending Aorta Ao Root Diameter (MM) 2.9 cm Ao Root Diam Index (MM) 1.7 cm/m2 Aortic Valve Name Value Normal AV Doppler AV Peak Velocity 154 cm/s AV Peak Gradient 9 mmHg AV Mean Gradient 5 mmHg AV VTI 27 cm AV Area (Cont Eq VTI) 2.6 cm2 >=3.0 AV Area (Cont Eq Charles) 2.3 cm2 AV Regurgitation 2D LVOT Area 3.1 cm2 AV Regurgitation Doppler AR Decel Time 1,407 ms AR Decel [place] 340 cm/s2 AR PHT 408 ms Ventricles Name Value Normal LV Dimensions 2D/MM IVS Diastolic Thickness (2D) 1.3 cm 0.6-1.0 LVID Diastole (2D) 3.2 cm 3.8-5.2 LVIW Diastolic Thickness (2D) 1.2 cm 0.6-0.9 LVID Systole (2D) 2.2 cm 2.2-3.5 LVOT Diameter 2.0 cm LV Mass (2D Cubed) 127.91 g 67.00-162.00 LV Mass Index (2D Cubed) 74 g/m2 43-95 Relative Wall Thickness (2D) 0.73 LV Fractional Shortening/Ejection Fraction 2D/MM LV Fractional Shortening (2D) 32 % 27-45 LV EF (2D Teicholz) 62 % 54-74 LV Diastolic Volume (4C MOD) 63 ml LV EF (4C MOD) 73 % LV Diastolic Volume (2C MOD) 56 ml LV EF (2C MOD) 72 % LV Diastolic Volume (BP MOD) 61 ml 46-106 LV Diastolic Volume Index (BP MOD) 35 ml/m2 29-61 LV Systolic Volume (BP MOD) 16 ml 14-42 LV Systolic Volume Index (BP MOD) 9 ml/m2 8-24 LV EF (BP MOD) 73 % 54-74 LV Diastolic Length (4C) 7.8 cm LV Systolic Length (4C) 5.6 cm LV Stroke Volume (4C MOD) 46 ml Atria Name Value Normal LA Dimensions LA Dimension (MM) 3.2 cm 2.7-3.8 LA Volume (4C A-L) 39 ml LA Volume (BP A-L) 48 ml RA Dimensions RA Area (4C) 15.4 cm2 <=18.0 Report Signatures
[2024-02-15] MEDS: LACTATED RINGERS 1,000 ML 100 ML IV CONT (03:25)
[2024-02-15] MEDS: dilTIAZem 100 MG/100 ML 100 MG/100 ML BAG IV CONT (03:26)
[2024-02-15] MEDS: VANCOMYCIN 1,250 MG/NS 250 ML 1,250 MG/250 ML BAG 166.67 MG IVPB (03:27)
[2024-02-15 03:41] LABS: Basophils Percent Auto 0.4 % (0.2-1.2); Eosinophils Percent Auto 0.1 % (0-4.4); Hematocrit 37.2 % (37.0-47.0); Immature Granulocyte Absolute 0.03 K/mm3 (0.00-0.031); Immature Granulocyte Percent A 0.4 % (0-0.5); Lymphocytes Absolute Auto 0.83 K/mm3 (0.9-3.2); Lymphocytes Percent Auto 10.1 % (18.3-44.2); Mean Corpuscular HGB Conc 32.3 g/dl (32-36); Mean Corpuscular Hemoglobin 28.6 pg (26-34); Mean Corpuscular Volume 88.6 fl (80-100); Mean Platelet Volume 9.8 fl (7.4-10.4); Monocytes Absolute Auto 0.5 K/mm3 (0.1-0.6); Monocytes Percent Auto 6.4 % (2.6-8.5); Neutrophils Absolute Auto 6.8 K/mm3 (1.3-6.7); Neutrophils Percent Auto 82.6 % (45.5-73.1); Platelet Count Result 262 k/mm3 (150-375); Red Cell Distribution Width 14.4 % (11.5-14.5); White Blood Count 8.2 K/mm3 (4.5-10.0)
[2024-02-15 04:45] LABS: Alanine Aminotransferase 32 U/L (6-35); Albumin Level 4.1 g/dL (3.5-5.1); Alkaline Phosphatase 83 U/L (38-126); Anion Gap 4 mmol/L (4-12); Aspartate Amino Transferase 43 U/L (14-36); Bilirubin,Total 0.9 mg/dL (0.2-1.3); Blood Urea Nitrogen 7 mg/dL (7-17); Calcium 8.5 mg/dL (8.4-10.2); Carbon Dioxide 26 mmol/L (22-30); Chloride 108 mmol/L (98-107); Estimated CRCL calculation 70 ml/min; Estimated Glomerular Filt Rate > 60; Glucose 119 mg/dL (65-110); Lactic Acid Reflex 0.9 mmol/L (0.7-2.0); Magnesium 2.3 mg/dL (1.6-2.3); Phosphorus 3.5 mg/dL (2.5-4.5); Potassium 3.3 mmol/L (3.4-5.0); Sodium 138 mmol/L (137-145)
[2024-02-15] MEDS: PIPERACILLN/TAZ 3.375GM/NS50ML 3.375 GM/50 ML BAG IVPB ×2 (05:04→12:02)
[2024-02-15] MEDS: ACETAMINOPHEN 325 MG TABLET 650 MG PO ×2 (05:09→14:34)
[2024-02-15] MEDS: LEVOTHYROXINE SODIUM INJ 100 MCG/5 ML VIAL 44 MCG IV PUSH (05:09)
[2024-02-15] MEDS: ONDANSETRON INJ 4 MG/2 ML VIAL IV PUSH ×2 (05:15→09:36)
[2024-02-15] MEDS: FLUTICASONE/SALMETEROL 115-21 MCG INHALER 1 PUFF 2 PUFF INHALATION ×2 (09:07→20:26)
[2024-02-15] MEDS: ENOXAPARIN 80 MG/0.8 ML SYRINGE 65 MG SUB-Q ×2 (09:25→20:44)
[2024-02-15] MEDS: MUPIROCIN 2% OINT 22 GM TUBE 1 APPLIC EACH NARE ×2 (09:25→20:43)
[2024-02-15] MEDS: PANTOPRAZOLE SODIUM IV 40 MG VIAL IV PUSH ×2 (09:26→20:43)
[2024-02-15] MEDS: METOPROLOL TARTRATE 12.5 MG TABLET PO ×2 (09:26→20:43)
[2024-02-15] MEDS: VENLAFAXINE HCL XR 75 MG CAP.ER.24H PO (09:27)
[2024-02-15] MEDS: CHOLECALCIFEROL 1,000 UNITS TABLET 1000 UNITS PO (09:27)
[2024-02-15] MEDS: ASPIRIN 81 MG ENTERIC TABLET PO (09:27)
[2024-02-15] MEDS: ATORVASTATIN 40 MG TABLET PO (09:27)
[2024-02-15] MEDS: MULTIVITAMINS THERAPEUTIC TAB (*BKC) 1 TABLET PO (09:27)
[2024-02-15] MEDS: POTASSIUM BICARBONATE 25 MEQ TABEF 50 MEQ PO (09:30)
[2024-02-15] MEDS: MECLIZINE HCL 25 MG TABLET PO ×2 (09:36→17:47)
[2024-02-15] MEDS: DIPHENOXYLATE/ATROPINE (*CRX) 2.5 MG TABLET 1 TABLET PO (09:37)
--- NOTE | 2024-02-15 09:45 | WPDINTPN ---
Progress Note: A&P Assessment and Plan (1) Sepsis: Code(s): A41.9 - Sepsis, unspecified organism Status: Acute Assessment and Plan: Patient presented with hypovolemia, lactic acidosis, electrolyte imbalance, hypothermic -initial lactic acid was 4.4, received 30 mL/kg IV fluid bolus -repeat lactic acid was 1.7 -hypothermia resolved with Darell Hugger -urine output has been adequate -patient started on Zosyn and vancomycin (02/13). Vancomycin discontinued -blood pressures have been stable -02/13: Blood cultures have been ordered and pending -02/13: Urine cultures have been ordered (2) Intractable nausea and vomiting: Code(s): R11.2 - Nausea with vomiting, unspecified Status: Acute Assessment and Plan: Patient presented with gastroenteritis with nausea, vomiting and diarrhea, likely dehydration, electrolyte disturbances with hypokalemia and hypomagnesemia -could be related to gastroenteritis versus lymphocytic colitis which the patient has history of -CT abdomen pelvis is negative -continue maintenance IV fluids with LR but decrease rate -replace potassium, magnesium and other electrolytes as necessary -improved (3) Diarrhea: Code(s): R19.7 - Diarrhea, unspecified Status: Acute Assessment and Plan: Patient has been having significant diarrhea secondary to lymphocytic colitis which she has a history of -patient is on Lomotil at home, but no bowel movements overnight (4) Atrial fibrillation with rapid ventricular response: Code(s): I48.91 - Unspecified atrial fibrillation Status: Acute Assessment and Plan: New onset AFib RVR could be related to sepsis, electrolyte imbalance -according the ER notes when patient was given potassium and magnesium a AFib RVR rates improved -patient is on Cardizem infusion, currently in sinus rhythm, rate controlled -DC Cardizem infusion -echo ordered and pending -cardiology consulted (5) Acute hypokalemia: Code(s): E87.6 - Hypokalemia Status: Acute Assessment and Plan: Hypokalemia likely related to diarrhea, nausea, vomiting -continue to replete and recheck (6) Hypothermia, not associated with low environmental temperature: Code(s): R68.0 - Hypothermia, not associated with low environmental temperature Status: Acute Assessment and Plan: Hypothermia likely related to sepsis, gastroenteritis, hypovolemia -patient was on Darell Hugger but now off, currently body temperatures have been stable (7) Hypothyroidism: Qualifiers: Hypothyroidism type: acquired Qualified Code(s): E03.9 - Hypothyroidism, unspecified Code(s): E03.9 - Hypothyroidism, unspecified Status: Acute Assessment and Plan: Continue levothyroxine (8) Microscopic colitis: Qualifiers: Microscopic colitis type: lymphocytic colitis Qualified Code(s): K52.832 - Lymphocytic colitis Code(s): K52.839 - Microscopic colitis, unspecified Status: Acute Assessment and Plan: Symptoms have improved No diarrhea overnight Plan DVT prophylaxis: Lovenox Stress ulcer prophylaxis: Protonix Nutrition: Diet ordered Code Status: Full code Transfer out of ICU today Subjective Date/time seen: 02/15/24 Overnight events reviewed. Patient states she feels good and denies any specific complaints. She states her diarrhea has resolved along with nausea and vomiting. She ate part of her tray this morning and did not had any problems with it. Converted to sinus rhythm although she is on Cardizem infusion.. Good urine output. Afebrile. All the systems were reviewed and were negative Review of Systems Review of Systems: All systems reviewed & are unremarkable except as noted in HPI and below Exam Narrative: General: Pleasant female, in no the distress HEENT:? Pupils equal and reactive, sclera is clear, moist oral mucosa Neck:? Supple Respiratory:, clear to auscultation bilateral, no wheezing, adequate air entry Cardiac:? S1-S2 normal, regular rate and rhythm Abdomen:? Soft, nontender, nondistended, present bowel sounds Extremities: No edema, palpable pedal pulses Neuro:? Patient is awake, alert, oriented x3, nonfocal Skin:? Warm and dry Psych:? Normal mentation and affect Objective Data Vital Signs Vital Signs: Vital Signs - 24 hr 02/14/24 10:34 02/14/24 10:00 02/14/24 10:00 Temperature 36.9 C Pulse Rate 81 75 75 Respiratory Rate 19 Blood Pressure 130/77 125/58 L Pulse Oximetry 93 Oxygen Delivery Fraction of Inspired Oxygen 02/14/24 11:35 02/14/24 12:00 02/14/24 12:00 Temperature Pulse Rate 84 78 87 Respiratory Rate Blood Pressure 134/75 138/75 Pulse Oximetry Oxygen Delivery Fraction of Inspired Oxygen 02/14/24 12:00 02/14/24 14:00 02/14/24 14:00 Temperature 37.1 C Pulse Rate 78 86 79 Respiratory Rate 18 Blood Pressure 138/75 133/74 Pulse Oximetry 92 Oxygen Delivery Fraction of Inspired Oxygen 02/14/24 14:00 02/14/24 16:16 02/14/24 16:00 Temperature 37.4 C 37.6 C Pulse Rate 79 88 Respiratory Rate 21 H Blood Pressure 133/74 Pulse Oximetry 92 Oxygen Delivery Fraction of Inspired Oxygen 02/14/24 16:00 02/14/24 16:00 02/14/24 18:00 Temperature 37.6 C Pulse Rate 91 89 83 Respiratory Rate 20 Blood Pressure 159/76 H 159/76 H 166/78 H Pulse Oximetry 94 Oxygen Delivery Fraction of Inspired Oxygen 02/14/24 18:00 02/14/24 18:00 02/14/24 19:45 Temperature 37.5 C Pulse Rate 90 93 93 Respiratory Rate 13 13 Blood Pressure 166/78 H Pulse Oximetry 96 96 Oxygen Delivery Room Air Fraction of Inspired Oxygen 02/14/24 20:00 02/14/24 20:00 02/14/24 20:00 Temperature 37.5 C Pulse Rate 86 86 86 Respiratory Rate 19 Blood Pressure 130/62 130/62 Pulse Oximetry 93 Oxygen Delivery Fraction of Inspired Oxygen 02/14/24 21:00 02/14/24 22:00 02/14/24 22:00 Temperature 37.4 C 37.4 C Pulse Rate 81 84 80 Respiratory Rate 18 17 Blood Pressure 128/66 124/67 Pulse Oximetry 94 94 Oxygen Delivery Fraction of Inspired Oxygen 02/14/24 22:00 02/15/24 00:12 02/15/24 00:00 Temperature Pulse Rate 82 88 81 Respiratory Rate 16 Blood Pressure 124/67 Pulse Oximetry 93 Oxygen Delivery Room Air Fraction of Inspired Oxygen 02/15/24 00:00 02/15/24 02:00 02/15/24 02:00 Temperature 37.5 C 37.7 C H Pulse Rate 81 86 82 Respiratory Rate 19 21 H Blood Pressure 149/76 H 152/82 H Pulse Oximetry 92 92 Oxygen Delivery Fraction of Inspired Oxygen 02/15/24 00:00 02/15/24 02:00 02/15/24 03:26 Temperature Pulse Rate 81 75 106 H Respiratory Rate Blood Pressure 149/76 H 153/81 H 151/81 H Pulse Oximetry Oxygen Delivery Fraction of Inspired Oxygen 02/15/24 03:26 02/15/24 03:47 02/15/24 04:00 Temperature Pulse Rate 106 H 95 84 Respiratory Rate 16 Blood Pressure 151/81 H Pulse Oximetry 93 Oxygen Delivery Room Air Fraction of Inspired Oxygen 02/15/24 04:00 02/15/24 06:00 02/15/24 06:00 Temperature 37.6 C 37.4 C Pulse Rate 84 84 85 Respiratory Rate 19 19 Blood Pressure 162/80 H 160/74 H Pulse Oximetry 92 92 Oxygen Delivery Fraction of Inspired Oxygen 02/15/24 06:00 02/15/24 06:45 02/15/24 08:00 Temperature Pulse Rate 83 74 Respiratory Rate 18 Blood Pressure 160/74 H 134/72 Pulse Oximetry 95 Oxygen Delivery Room Air Fraction of Inspired Oxygen 02/15/24 08:00 02/15/24 09:01 02/15/24 09:26 Temperature 37.3 C Pulse Rate 96 94 Respiratory Rate 15 Blood Pressure 112/91 H Pulse Oximetry 95 97 Oxygen Delivery Room Air Fraction of Inspired Oxygen 21 02/15/24 08:00 Temperature Pulse Rate 92 Respiratory Rate Blood Pressure 112/91 H Pulse Oximetry Oxygen Delivery Fraction of Inspired Oxygen Intake/Output Intake/Output: Intake & Output 02/12/24 02/13/24 02/14/24 02/15/24 23:59 23:59 23:59 23:59 Intake Total 5174.7 1550.0 Output Total 5100 1200 Balance 74.7 350.0 Meds/Results Medications: Active Medications Generic Name Dose Route Start Last Admin Trade Name Freq PRN Reason Stop Dose Admin Acetaminophen 650 mg 02/14/24 16:00 02/15/24 05:09 Acetaminophen 325 Mg Tablet PO 650 mg Q4H PRN Administration Mild Pain (1-3) or Fever Albuterol 2 puff 02/15/24 08:57 Albuterol Sulfate (*Sp) Aerosol 1 Puff INHALATION Q4H PRN shortness of breath or wheezing Alprazolam 0.25 mg 02/14/24 19:21 Alprazolam (*Crx) 0.25 Mg Tablet PO TID PRN Anxiety Aspirin 81 mg 02/15/24 09:00 02/15/24 09:27 Aspirin 81 Mg Enteric Tablet PO 81 mg QAM [facility]O Administration Atorvastatin Calcium 40 mg 02/15/24 09:00 02/15/24 09:27 Atorvastatin 40 Mg Tablet PO 40 mg DAILY CASTILLO Administration Diphenoxylate HCl/Atropine 1 tablet 02/15/24 09:00 02/15/24 09:37 Diphenoxylate/Atropine (*Crx) 2.5 Mg Tablet PO 1 tablet DAILY CA[facility]O Administration Enoxaparin Sodium 65 mg 02/14/24 21:00 02/15/24 09:25 Enoxaparin 80 Mg/0.8 Ml Syringe SUB-Q 65 mg Q12HR [facility]O Administration Hydralazine HCl 10 mg 02/14/24 18:02 02/14/24 18:11 Hydralazine Hcl 20 Mg/Ml Vial IV PUSH 10 mg Q4HR PRN Administration Hypertension Piperacillin/Tazobactam/Dextrose 3.375 gm in 50 mls @ 100 mls/hr 02/14/24 08:00 02/15/24 05:34 Zosyn 3.375 Gm/Ns 50 Ml IVPB Infused Q6HR [facility]O Infusion Levothyroxine Sodium 88 mcg 02/16/24 06:30 Levothyroxine Sodium 88 Mcg Tablet PO DAILY@0630 [facility]O Meclizine HCl 25 mg 02/15/24 08:57 02/15/24 09:36 Meclizine Hcl 25 Mg Tablet PO 25 mg BID PRN Administration dizziness Metoprolol Tartrate 12.5 mg 02/15/24 09:00 02/15/24 09:26 Metoprolol Tartrate 12.5 Mg Tablet PO 12.5 mg Q12HR CA[facility]O Administration Multivitamins Therapeutic 1 tablet 02/15/24 09:00 02/15/24 09:27 Multivitamins Therapeutic Tab (*Bkc) PO 1 tablet DAILY CA[facility]O Administration Mupirocin 1 applic 02/14/24 21:00 02/15/24 09:25 Mupirocin 2% Oint 22 Gm Tube EACH NARE 1 applic Q12HR [facility]O Administration Ondansetron HCl 4 mg 02/14/24 12:56 02/15/24 09:36 Ondansetron Inj 4 Mg/2 Ml Vial IV PUSH 4 mg Q4H PRN Administration Nausea And Vomiting Pantoprazole Sodium 40 mg 02/14/24 11:10 02/15/24 09:26 Pantoprazole Sodium Iv 40 Mg Vial IV PUSH 40 mg Q12HR [facility]O Administration Perflutren Lipid Microsphere 0 ml 02/15/24 08:55 Perflutren Lipid Microspheres 1.5 Ml Vial Diluted To 10 Ml Total Volume IV PUSH 02/18/24 08:55 ONCE PRN adequate visualization Protocol Fluticasone/Salmeterol 2 puff 02/15/24 08:00 02/15/24 09:07 Fluticasone/Salmeterol 115-21 Mcg Inhaler 1 Puff INHALATION 2 puff Q12HRT [facility]O Administration Venlafaxine HCl 75 mg 02/15/24 09:00 02/15/24 09:27 Venlafaxine Hcl Xr 75 Mg Cap.Er.24h PO 75 mg DAILY CASTILLO Administration Vitamin D 1,000 units 02/15/24 09:00 02/15/24 09:27 Cholecalciferol 1,000 Units Tablet PO 1,000 units DAILY CA[facility]ILLO Administration Radiology Results: ITS Impressions Chest X-Ray 02/14/24 06:07 IMPRESSION: 1. Mild atelectasis at left lung base. Abdomen/Pelvis CT 02/14/24 07:19 IMPRESSION: 1. Small sliding hiatal hernia. Labs Labs: Laboratory Results - last 24 hr 02/14/24 02/14/24 02/15/24 02:44 13:05 03:29 WBC 8.2 RBC 4.20 Hgb 12.0 Hct 37.2 MCV 88.6 MCH 28.6 MCHC 32.3 RDW 14.4 Plt Count 262 MPV 9.8 Immature Gran % (Auto) 0.4 Neut % (Auto) 82.6 H Lymph % (Auto) 10.1 L [place] % (Auto) 6.4 Eos % (Auto) 0.1 Baso % (Auto) 0.4 Lymph # (Auto) 0.83 L [place] # (Auto) 0.5 Eos # (Auto) 0.0 Baso # (Auto) 0.0 Abs Immat Gran (auto) 0.03 Absolute Neuts (auto) 6.8 H Absolute Nucleated RBC 0.000 Nucleated RBC % 0.0 Sodium 138 Potassium 3.9 3.3 L Chloride 108 H Carbon Dioxide 26 Anion Gap 4 BUN 7 Creatinine 0.60 L Estim Creat Clear Calc 70 Estimated GFR > 60 Glucose 119 H Hemoglobin A1c 5.7 Lactic Acid 0.9 Calcium 8.5 Phosphorus 3.5 Magnesium 2.3 Total Bilirubin 0.9 AST 43 H ALT 32 Alkaline Phosphatase 83 Total Protein 8.0 Albumin 4.1
--- NOTE | 2024-02-15 09:58 | P.CONCA_ITS ---
Assessment and Plan Assessment and plan (1) Atrial fibrillation with rapid ventricular response: Code(s): I48.91 - Unspecified atrial fibrillation Status: Acute Plan 63-year-old woman with CAD status post PCI, hypertension, and lymphocytic colitis who initially presented with lightheadedness in setting of vomiting and diarrhea complicated by hypokalemia and atrial fibrillation with rapid ventricular rate Paroxysmal atrial fibrillation -recommend Eliquis 5 mg p.o. b.i.d. -outpatient follow-up for possible 30 day event monitor to determine AFib burden CAD status post PCI -continue aspirin 81 mg p.o. daily Hyperlipidemia -continue atorvastatin 40 mg every evening Cardiology will follow p.r.n. History of Present Illness History of Present Illness Consult date/time: 02/15/24 09:58 Requesting physician: Vita Ward MD Reason For Visit: Severe hypokalemia,atrial fibrillation RVR, sepsis Narrative: 63-year-old woman with CAD status post PCI, hypertension, and lymphocytic colitis who initially presented with lightheadedness in setting of vomiting and diarrhea complicated by hypokalemia and atrial fibrillation with rapid ventricular rate. She had some episodes of chest tightness during her hospitalization which she attributed to anxiety. Prior to admission, she did not have any exertional chest discomfort. Otherwise, at this time she feels much better in regards to chest tightness and shortness of breath. Review of Systems Cardiovascular: Cardiovascular: Reports as per HPI Respiratory: Respiratory: Reports as per HPI [facility] Past Medical History Medical History (Updated 02/14/24 @ 11:00 by Fina Harman MD) Abnormal chest x-ray Acute hypokalemia Acute sinusitis Anemia Anxiety Cervical radiculopathy Colitis Coronary artery disease Cough COVID-19 (Unknown) Depression Dyslipidemia External hemorrhoids Heart disease History of urinary tract infection Hospital discharge follow-up Hypertension Hypokalemia Hypothyroidism Irritable bowel syndrome Localized swelling, mass and lump, unspecified Microscopic colitis Migraines Pleuritic chest pain Pneumonia due to COVID-19 virus Surgical History Surgical History H/O excision of dermoid cyst 03/22/2014 09/06/2018 History of heart artery stent History of hernia repair 08/06/2016 Family History Family History Father Heart disease Mother Hypertension Depression Cerebrovascular accident Other Inflammatory bowel disease Social History Social History Social History: The patient is and lives in [place] with her . She is a lifelong nonsmoker. No alcohol or illicit substance abuse. Her Josh is her surrogate decision maker and she wishes to be a full code. Caffeine-daily Smoking status: Never smoker Alcohol intake: never Substance use: never Do You Feel Safe in your Home?: Yes Lack of Transportation: No Lack of Food: Never True Current Housing: I Have Housing Concerned About Future Housing: No Difficulty Paying Gas/Electric Bills: No Difficulty Paying for Meds: No Currently Unemployed: No Education: High School Diploma/GED Difficulty w/ Childcare or Family Care: No Spiritual care concerns: No Meds Home Medications and Allergies Home Medications Medication Instructions Recorded Confirmed Type aspirin 81 mg tablet 81 mg PO DAILY 05/08/20 02/14/24 History cholecalciferol (vitamin D3) 25 25 mcg PO DAILY 05/09/20 02/14/24 History mcg (1,000 unit) capsule (Vitamin D3) metoprolol tartrate 25 mg tablet 12.5 mg PO BID 06/11/20 02/14/24 History atorvastatin 40 mg tablet 40 mg PO DAILY 12/19/21 02/14/24 History levothyroxine 88 mcg tablet See Rx Instructions .Route 01/15/23 02/14/24 Rx .COMPLEX #90 tabs venlafaxine 75 mg capsule,extended 75 mg PO DAILY #90 caps 01/15/23 02/14/24 Rx release 24 hr multivitamin 1 tablet PO DAILY 02/27/23 02/14/24 History meclizine 25 mg tablet 25 mg PO BID PRN dizziness #30 tabs 04/08/23 02/14/24 Rx alprazolam 0.25 mg tablet (Xanax) 0.25 mg PO DAILY PRN anxiety #30 08/03/23 02/14/24 Rx tabs albuterol sulfate 90 mcg/actuation 2 puff inhalation Q4H PRN 10/06/23 02/14/24 Rx aerosol inhaler shortness of breath or wheezing #6.7 grams fluticasone 250 mcg-salmeterol 50 1 inh inhalation BID #60 ea 11/20/23 02/14/24 Rx mcg/dose blistr powdr for inhalation (Advair Diskus) diphenoxylate-atropine 2.5 1 tablet PO DAILY 12/07/23 02/14/24 History mg-0.025 mg tablet lisinopril 40 mg tablet 40 mg PO DAILY #90 tabs 02/03/24 02/14/24 Rx Allergies Allergy/AdvReac Type Severity Reaction Status Date / Time codeine Allergy Hives Verified 12/07/23 09:00 doxycycline Allergy headaches Verified 12/07/23 09:00 hydrocodone Allergy Hives Verified 12/07/23 09:00 morphine Allergy nausea/vomi Verified 12/07/23 09:00 ting pneumococcal vaccine Allergy Hives Verified 12/07/23 09:00 [From Pneumovax-] Sulfa (Sulfonamide Allergy Hives Verified 12/07/23 09:00 Antibiotics) Vital Signs Vital Signs - 24 hr 02/14/24 10:34 02/14/24 10:00 02/14/24 10:00 Temperature 36.9 C Pulse Rate 81 75 75 Respiratory Rate 19 Blood Pressure 130/77 125/58 L Pulse Oximetry 93 Oxygen Delivery Fraction of Inspired Oxygen 02/14/24 11:35 02/14/24 12:00 02/14/24 12:00 Temperature Pulse Rate 84 78 87 Respiratory Rate Blood Pressure 134/75 138/75 Pulse Oximetry Oxygen Delivery Fraction of Inspired Oxygen 02/14/24 12:00 02/14/24 14:00 02/14/24 14:00 Temperature 37.1 C Pulse Rate 78 86 79 Respiratory Rate 18 Blood Pressure 138/75 133/74 Pulse Oximetry 92 Oxygen Delivery Fraction of Inspired Oxygen 02/14/24 14:00 02/14/24 16:16 02/14/24 16:00 Temperature 37.4 C 37.6 C Pulse Rate 79 88 Respiratory Rate 21 H Blood Pressure 133/74 Pulse Oximetry 92 Oxygen Delivery Fraction of Inspired Oxygen 02/14/24 16:00 02/14/24 16:00 02/14/24 18:00 Temperature 37.6 C Pulse Rate 91 89 83 Respiratory Rate 20 Blood Pressure 159/76 H 159/76 H 166/78 H Pulse Oximetry 94 Oxygen Delivery Fraction of Inspired Oxygen 02/14/24 18:00 02/14/24 18:00 02/14/24 19:45 Temperature 37.5 C Pulse Rate 90 93 93 Respiratory Rate 13 13 Blood Pressure 166/78 H Pulse Oximetry 96 96 Oxygen Delivery Room Air Fraction of Inspired Oxygen 02/14/24 20:00 02/14/24 20:00 02/14/24 20:00 Temperature 37.5 C Pulse Rate 86 86 86 Respiratory Rate 19 Blood Pressure 130/62 130/62 Pulse Oximetry 93 Oxygen Delivery Fraction of Inspired Oxygen 02/14/24 21:00 02/14/24 22:00 02/14/24 22:00 Temperature 37.4 C 37.4 C Pulse Rate 81 84 80 Respiratory Rate 18 17 Blood Pressure 128/66 124/67 Pulse Oximetry 94 94 Oxygen Delivery Fraction of Inspired Oxygen 02/14/24 22:00 02/15/24 00:12 02/15/24 00:00 Temperature Pulse Rate 82 88 81 Respiratory Rate 16 Blood Pressure 124/67 Pulse Oximetry 93 Oxygen Delivery Room Air Fraction of Inspired Oxygen 02/15/24 00:00 02/15/24 02:00 02/15/24 02:00 Temperature 37.5 C 37.7 C H Pulse Rate 81 86 82 Respiratory Rate 19 21 H Blood Pressure 149/76 H 152/82 H Pulse Oximetry 92 92 Oxygen Delivery Fraction of Inspired Oxygen 02/15/24 00:00 02/15/24 02:00 02/15/24 03:26 Temperature Pulse Rate 81 75 106 H Respiratory Rate Blood Pressure 149/76 H 153/81 H 151/81 H Pulse Oximetry Oxygen Delivery Fraction of Inspired Oxygen 02/15/24 03:26 02/15/24 03:47 02/15/24 04:00 Temperature Pulse Rate 106 H 95 84 Respiratory Rate 16 Blood Pressure 151/81 H Pulse Oximetry 93 Oxygen Delivery Room Air Fraction of Inspired Oxygen 02/15/24 04:00 02/15/24 06:00 02/15/24 06:00 Temperature 37.6 C 37.4 C Pulse Rate 84 84 85 Respiratory Rate 19 19 Blood Pressure 162/80 H 160/74 H Pulse Oximetry 92 92 Oxygen Delivery Fraction of Inspired Oxygen 02/15/24 06:00 02/15/24 06:45 02/15/24 08:00 Temperature Pulse Rate 83 74 Respiratory Rate 18 Blood Pressure 160/74 H 134/72 Pulse Oximetry 95 Oxygen Delivery Room Air Fraction of Inspired Oxygen 02/15/24 08:00 02/15/24 09:01 02/15/24 09:26 Temperature 37.3 C Pulse Rate 96 94 Respiratory Rate 15 Blood Pressure 112/91 H Pulse Oximetry 95 97 Oxygen Delivery Room Air Fraction of Inspired Oxygen 21 02/15/24 08:00 02/15/24 09:45 Temperature Pulse Rate 92 88 Respiratory Rate Blood Pressure 112/91 H 129/68 Pulse Oximetry Oxygen Delivery Fraction of Inspired Oxygen Exam Const: General: comfortable HENMT: Mouth: Yes dry mucous membranes Eyes: EOM: EOMs intact bilaterally Neck: Neck: no JVD Resp: Effort & Inspection: normal respiratory effort Auscultation: clear to auscultation bilaterally Cardio: Rate: regular rate Rhythm: regular rhythm GI: GI Palp: Yes Soft to palpation Neuro: Speech: normal speech Extrem: General: no edema Results Labs and Meds 02/15/24 03:29 02/15/24 03:29 Lab results: Cardiac Enzymes 02/15/24 Range/Units 03:29 AST 43 H (14-36) U/L CBC 02/15/24 Range/Units 03:29 WBC 8.2 (4.5-10.0) K/mm3 RBC 4.20 (4.2-5.4) M/mm3 Hgb 12.0 (12.0-15.0) g/dL Hct 37.2 (37.0-47.0) % Plt Count 262 (150-375) k/mm3 Lymph # (Auto) 0.83 L (0.9-3.2) K/mm3 [place] # (Auto) 0.5 (0.1-0.6) K/mm3 Eos # (Auto) 0.0 (0-0.3) K/mm3 Baso # (Auto) 0.0 (0.0-0.1) K/mm3 Comprehensive Metabolic Panel 02/14/24 02/15/24 Range/Units 13:05 03:29 Sodium 138 (137-145) mmol/L Potassium 3.9 3.3 L (3.4-5.0) mmol/L Chloride 108 H (98-107) mmol/L Carbon Dioxide 26 (22-30) mmol/L BUN 7 (7-17) mg/dL Creatinine 0.60 L (0.7-1.0) mg/dL Glucose 119 H (65-110) mg/dL Calcium 8.5 (8.4-10.2) mg/dL AST 43 H (14-36) U/L ALT 32 (6-35) U/L Alkaline Phosphatase 83 (38-126) U/L Total Protein 8.0 (6.3-8.2) g/dL Albumin 4.1 (3.5-5.1) g/dL Intake and Output 02/14/24 02/15/24 02/15/24 23:59 07:59 15:59 Intake Total 1313.3 1540.0 18.8 Output Total 350 1200 Balance 963.3 340.0 18.8 Intake: IV 1283.3 1340.0 18.8 Lactated Ringers 1,000 ml @ 100 893.3 1000 mls/hr IV CONT .Q10H [facility]O Rx#: [id number] dilTIAZem 100 MG/100 ML 100 mg 40 40.0 18.8 In 100 ml @ 5 MG/HR 5 mls/hr IV CONT .Q20H CASTILLO Rx#:[id number] Piperacilln/Humberto 3.375GM/Ns50ml 100 50 3.375 gm In 50 ml @ 100 mls/hr IVPB Q6HR [facility]ST[facility]O Rx#:[id number] Vancomycin 1,250 mg/Ns 250 ml 1 250 250 ,250 mg In 250 ml @ 166.667 mls /hr IVPB Q12H CASTILLO Rx#:[id number] Oral 30 200 Output: Catheter Urine 350 1200 Urethral Catheter 350 1200 Patient Weight 02/15/24 23:59 Weight 68.3 kg
[2024-02-15] MEDS: PERFLUTREN LIPID MICROSPHERES 1.5 ML VIAL DILUTED TO 10 ML TOTAL VOLUME IV PUSH (14:00)
--- NOTE | 2024-02-15 14:02 | P.PNIM_ITS ---
Progress Note: A&P Assessment and Plan (1) Sepsis: Code(s): A41.9 - Sepsis, unspecified organism Status: Acute Assessment and Plan: Patient presented with hypovolemia, lactic acidosis, electrolyte imbalance, hy pothermic -initial lactic acid was 4.4, received 30 mL/kg IV fluid bolus - lactic acid normal -hypothermia resolved with Darell Hugger -urine output has been adequate -patient started on Zosyn and vancomycin (02/13). Vancomycin discontinued -blood pressures have been stable Temperature 100.3, monitor urine and blood culture still pending (2) Intractable nausea and vomiting: Code(s): R11.2 - Nausea with vomiting, unspecified Status: Acute Assessment and Plan: Patient presented with gastroenteritis with nausea, vomiting and diarrhea, likely dehydration, electrolyte disturbances with hypokalemia and hypomagnesemia -could be related to gastroenteritis versus lymphocytic colitis which the patient has history of -CT abdomen pelvis is negative monitor patient noted she is planned for biologic outpatient (3) Diarrhea: Code(s): R19.7 - Diarrhea, unspecified Status: Acute Assessment and Plan: Patient has been having significant diarrhea secondary to lymphocytic colitis which she has a history of -patient is on Lomotil at home, but no bowel movements overnight (4) Atrial fibrillation with rapid ventricular response: Code(s): I48.91 - Unspecified atrial fibrillation Status: Acute Assessment and Plan: New onset AFib RVR could be related to sepsis, electrolyte imbalance -according the ER notes when patient was given potassium and magnesium a AFib RVR rates improved -rate controlled -DC Cardizem infusion Continue Metoprolol 12.5 mg and Eliquis Cardiology signed off (5) Acute hypokalemia: Code(s): E87.6 - Hypokalemia Status: Acute Assessment and Plan: Hypokalemia likely related to diarrhea, nausea, vomiting -continue to replete and recheck (6) Hypothermia, not associated with low environmental temperature: Code(s): R68.0 - Hypothermia, not associated with low environmental temperature Status: Acute Assessment and Plan: Hypothermia likely related to sepsis, gastroenteritis, hypovolemia -patient was on Darell Hugger but now off, currently body temperatures have been stable (7) Hypothyroidism: Qualifiers: Hypothyroidism type: acquired Qualified Code(s): E03.9 - Hypothyroidism, unspecified Code(s): E03.9 - Hypothyroidism, unspecified Status: Acute Assessment and Plan: Continue levothyroxine (8) Microscopic colitis: Qualifiers: Microscopic colitis type: lymphocytic colitis Qualified Code(s): K52.832 - Lymphocytic colitis Code(s): K52.839 - Microscopic colitis, unspecified Status: Acute Assessment and Plan: Symptoms have improved No diarrhea overnight (9) Hypertension: Qualifiers: Hypertension type: primary hypertension Qualified Code(s): I10 - Essential (primary) hypertension Code(s): I10 - Essential (primary) hypertension Status: Acute Assessment and Plan: with elevated blood pressure BP 179/90 Restarted Lisinopril and added HCTZ monitor Plan DVT prophylaxis: Lovenox Nutrition: Diet ordered Code Status: Full code Transfer out of ICU today Subjective Date/time seen: 02/15/24 14:02 Interval history: Afib RVR resolved as HR now in 70s however BP is elevated, restarted Lisinopril and added HCTZ 12.5mg monitor one more night and discharge tomorrow possibly Review of Systems Review of Systems: All other systems reviewed and negative except as noted in the history above. All systems reviewed & are unremarkable except as noted in HPI and below Exam Narrative: General: Pleasant female, in no the distress HEENT:? Pupils equal and reactive, sclera is clear, moist oral mucosa Neck:? Supple Respiratory:, clear to auscultation bilateral, no wheezing, adequate air entry Cardiac:? S1-S2 normal, regular rate and rhythm Abdomen:? Soft, nontender, nondistended, present bowel sounds Extremities: No edema, palpable pedal pulses Neuro:? Patient is awake, alert, oriented x3, nonfocal Skin:? Warm and dry Psych:? Normal mentation and affect Objective Data Vital Signs Vital Signs: Vital Signs - 24 hr 02/14/24 16:16 02/14/24 16:00 02/14/24 16:00 Temperature 99.6 F 99.6 F Pulse Rate 88 91 Respiratory Rate 20 Blood Pressure 159/76 H Pulse Oximetry 94 Oxygen Delivery Fraction of Inspired Oxygen 02/14/24 16:00 02/14/24 18:00 02/14/24 18:00 Temperature Pulse Rate 89 83 90 Respiratory Rate Blood Pressure 159/76 H 166/78 H Pulse Oximetry Oxygen Delivery Fraction of Inspired Oxygen 02/14/24 18:00 02/14/24 19:45 02/14/24 20:00 Temperature 99.5 F 99.5 F Pulse Rate 93 93 86 Respiratory Rate 13 13 19 Blood Pressure 166/78 H 130/62 Pulse Oximetry 96 96 93 Oxygen Delivery Room Air Fraction of Inspired Oxygen 02/14/24 20:00 02/14/24 20:00 02/14/24 21:00 Temperature 99.3 F Pulse Rate 86 86 81 Respiratory Rate 18 Blood Pressure 130/62 128/66 Pulse Oximetry 94 Oxygen Delivery Fraction of Inspired Oxygen 02/14/24 22:00 02/14/24 22:00 02/14/24 22:00 Temperature 99.3 F Pulse Rate 84 80 82 Respiratory Rate 17 Blood Pressure 124/67 124/67 Pulse Oximetry 94 Oxygen Delivery Fraction of Inspired Oxygen 02/15/24 00:12 02/15/24 00:00 02/15/24 00:00 Temperature 99.5 F Pulse Rate 88 81 81 Respiratory Rate 16 19 Blood Pressure 149/76 H Pulse Oximetry 93 92 Oxygen Delivery Room Air Fraction of Inspired Oxygen 02/15/24 02:00 02/15/24 02:00 02/15/24 00:00 Temperature 99.8 F H Pulse Rate 86 82 81 Respiratory Rate 21 H Blood Pressure 152/82 H 149/76 H Pulse Oximetry 92 Oxygen Delivery Fraction of Inspired Oxygen 02/15/24 02:00 02/15/24 03:26 02/15/24 03:26 Temperature Pulse Rate 75 106 H 106 H Respiratory Rate Blood Pressure 153/81 H 151/81 H 151/81 H Pulse Oximetry Oxygen Delivery Fraction of Inspired Oxygen 02/15/24 03:47 02/15/24 04:00 02/15/24 04:00 Temperature 99.6 F Pulse Rate 95 84 84 Respiratory Rate 16 19 Blood Pressure 162/80 H Pulse Oximetry 93 92 Oxygen Delivery Room Air Fraction of Inspired Oxygen 02/15/24 06:00 02/15/24 06:00 02/15/24 06:00 Temperature 99.4 F Pulse Rate 84 85 83 Respiratory Rate 19 Blood Pressure 160/74 H 160/74 H Pulse Oximetry 92 Oxygen Delivery Fraction of Inspired Oxygen 02/15/24 06:45 02/15/24 08:00 02/15/24 08:00 Temperature 99.1 F Pulse Rate 74 96 Respiratory Rate 18 15 Blood Pressure 134/72 112/91 H Pulse Oximetry 95 95 Oxygen Delivery Room Air Fraction of Inspired Oxygen 02/15/24 09:01 02/15/24 09:26 02/15/24 08:00 Temperature Pulse Rate 94 92 Respiratory Rate Blood Pressure 112/91 H Pulse Oximetry 97 Oxygen Delivery Room Air Fraction of Inspired Oxygen 21 02/15/24 09:45 02/15/24 10:00 02/15/24 08:00 Temperature 99.6 F Pulse Rate 88 83 90 Respiratory Rate 20 Blood Pressure 129/68 161/76 H Pulse Oximetry 91 Oxygen Delivery Fraction of Inspired Oxygen 02/15/24 10:00 02/15/24 11:00 02/15/24 12:00 Temperature Pulse Rate 78 81 Respiratory Rate Blood Pressure 109/95 H Pulse Oximetry 94 Oxygen Delivery Room Air Fraction of Inspired Oxygen 02/15/24 12:00 02/15/24 12:00 Temperature 100 F H Pulse Rate 78 75 Respiratory Rate 12 Blood Pressure Pulse Oximetry 98 Oxygen Delivery Fraction of Inspired Oxygen Intake/Output Intake/Output: Intake & Output 02/12/24 02/13/24 02/14/24 02/15/24 23:59 23:59 23:59 23:59 Intake Total 5174.7 1848.8 Output Total 5100 1200 Balance 74.7 648.8 Meds/Results Medications: Active Medications Generic Name Dose Route Start Last Admin Trade Name Freq PRN Reason Stop Dose Admin Acetaminophen 650 mg 02/14/24 16:00 02/15/24 05:09 Acetaminophen 325 Mg Tablet PO 650 mg Q4H PRN Administration Mild Pain (1-3) or Fever Albuterol 2 puff 02/15/24 08:57 Albuterol Sulfate (*Sp) Aerosol 1 Puff INHALATION Q4H PRN shortness of breath or wheezing Alprazolam 0.25 mg 02/14/24 19:21 Alprazolam (*Crx) 0.25 Mg Tablet PO TID PRN Anxiety Aspirin 81 mg 02/15/24 09:00 02/15/24 09:27 Aspirin 81 Mg Enteric Tablet PO 81 mg QAM CASTILLO Administration Atorvastatin Calcium 40 mg 02/15/24 09:00 02/15/24 09:27 Atorvastatin 40 Mg Tablet PO 40 mg DAILY CASTILLO Administration Diphenoxylate HCl/Atropine 1 tablet 02/15/24 09:00 02/15/24 09:37 Diphenoxylate/Atropine (*Crx) 2.5 Mg Tablet PO 1 tablet DAILY CASTILLO Administration Enoxaparin Sodium 65 mg 02/14/24 21:00 02/15/24 09:25 Enoxaparin 80 Mg/0.8 Ml Syringe SUB-Q 65 mg Q12HR CASTILLO Administration Hydralazine HCl 10 mg 02/14/24 18:02 02/14/24 18:11 Hydralazine Hcl 20 Mg/Ml Vial IV PUSH 10 mg Q4HR PRN Administration Hypertension Piperacillin/Tazobactam/Dextrose 3.375 gm in 50 mls @ 100 mls/hr 02/14/24 08:00 02/15/24 13:13 Zosyn 3.375 Gm/Ns 50 Ml IVPB Infused Q6HR CASTILLO Infusion Levothyroxine Sodium 88 mcg 02/16/24 06:30 Levothyroxine Sodium 88 Mcg Tablet PO DAILY@0630 CASTILLO Meclizine HCl 25 mg 02/15/24 08:57 02/15/24 09:36 Meclizine Hcl 25 Mg Tablet PO 25 mg BID PRN Administration dizziness Metoprolol Tartrate 12.5 mg 02/15/24 09:00 02/15/24 09:26 Metoprolol Tartrate 12.5 Mg Tablet PO 12.5 mg Q12HR CASTILLO Administration Multivitamins Therapeutic 1 tablet 02/15/24 09:00 02/15/24 09:27 Multivitamins Therapeutic Tab (*Bkc) PO 1 tablet DAILY CASTILLO Administration Mupirocin 1 applic 02/14/24 21:00 02/15/24 09:25 Mupirocin 2% Oint 22 Gm Tube EACH NARE 1 applic Q12HR CASTILLO Administration Ondansetron HCl 4 mg 02/14/24 12:56 02/15/24 09:36 Ondansetron Inj 4 Mg/2 Ml Vial IV PUSH 4 mg Q4H PRN Administration Nausea And Vomiting Pantoprazole Sodium 40 mg 02/14/24 11:10 02/15/24 09:26 Pantoprazole Sodium Iv 40 Mg Vial IV PUSH 40 mg Q12HR CASTILLO Administration Perflutren Lipid Microsphere 0 ml 02/15/24 08:55 Perflutren Lipid Microspheres 1.5 Ml Vial Diluted To 10 Ml Total Volume IV PUSH 02/18/24 08:55 ONCE PRN adequate visualization Protocol Fluticasone/Salmeterol 2 puff 02/15/24 08:00 02/15/24 09:07 Fluticasone/Salmeterol 115-21 Mcg Inhaler 1 Puff INHALATION 2 puff Q12HRT CASTILLO Administration Venlafaxine HCl 75 mg 02/15/24 09:00 02/15/24 09:27 Venlafaxine Hcl Xr 75 Mg Cap.Er.24h PO 75 mg DAILY CASTILLO Administration Vitamin D 1,000 units 02/15/24 09:00 02/15/24 09:27 Cholecalciferol 1,000 Units Tablet PO 1,000 units DAILY CASTILLO Administration Radiology Results: ITS Impressions Chest X-Ray 02/14/24 06:07 IMPRESSION: 1. Mild atelectasis at left lung base. Abdomen/Pelvis CT 02/14/24 07:19 IMPRESSION: 1. Small sliding hiatal hernia. Labs Labs: Laboratory Results - last 24 hr 02/15/24 03:29 WBC 8.2 RBC 4.20 Hgb 12.0 Hct 37.2 MCV 88.6 MCH 28.6 MCHC 32.3 RDW 14.4 Plt Count 262 MPV 9.8 Immature Gran % (Auto) 0.4 Neut % (Auto) 82.6 H Lymph % (Auto) 10.1 L [place] % (Auto) 6.4 Eos % (Auto) 0.1 Baso % (Auto) 0.4 Lymph # (Auto) 0.83 L [place] # (Auto) 0.5 Eos # (Auto) 0.0 Baso # (Auto) 0.0 Abs Immat Gran (auto) 0.03 Absolute Neuts (auto) 6.8 H Absolute Nucleated RBC 0.000 Nucleated RBC % 0.0 Sodium 138 Potassium 3.3 L Chloride 108 H Carbon Dioxide 26 Anion Gap 4 BUN 7 Creatinine 0.60 L Estim Creat Clear Calc 70 Estimated GFR > 60 Glucose 119 H Lactic Acid 0.9 Calcium 8.5 Phosphorus 3.5 Magnesium 2.3 Total Bilirubin 0.9 AST 43 H ALT 32 Alkaline Phosphatase 83 Total Protein 8.0 Albumin 4.1
[2024-02-15] MEDS: ALPRAZolam (*CRX) 0.25 MG TABLET PO ×2 (14:13→21:22)
[2024-02-15] MEDS: lisinopriL 20 MG TABLET 40 MG PO (14:34)
[2024-02-15] MEDS: hydroCHLOROthiazide 12.5 MG CAPSULE PO (14:34)
--- NOTE | 2024-02-15 14:53 | IVDEFINITY ---
Prior to administration of IV Definity the patient was educated on the risks and benefits of the imaging enhancing agent including potential adverse side effects. The patient verbalized understanding. Allergies were verified. No exclusion criteria were identified and at least one of the following inclusion criteria were met: 1) physician request, 2) patient technically difficult to image (per the [place] [employer] of Echocardi[employer] guidelines of two or more segments not discernable within the apical view), or 3) questionable left ventricular function. ?
[2024-02-15 15:39] LABS: Toxigenic C. Diff POSITIVE (NEGATIVE)
[2024-02-15 15:57] LABS: Vancomycin Trough 13.7 ug/mL (10.0-20.0)
[2024-02-16] VITALS (16 sets, daily range): BP systolic 121–159; BP diastolic 64–85; PULSE 62–108; RESP 14–18; TEMP 36.3–37.2; O2SAT 94–98
[2024-02-16] MEDS: PIPERACILLN/TAZ 3.375GM/NS50ML 3.375 GM/50 ML BAG IVPB ×3 (00:58→13:12)
[2024-02-16] MEDS: hydrALAZINE HCL 20 MG/ML VIAL 10 MG IV PUSH (04:41)
[2024-02-16 05:03] LABS: Basophils Absolute Auto 0.1 K/mm3 (0.0-0.1); Basophils Percent Auto 1.1 % (0.2-1.2); Eosinophils Absolute Auto 0.1 K/mm3 (0-0.3); Eosinophils Percent Auto 1.5 % (0-4.4); Hematocrit 37.7 % (37.0-47.0); Immature Granulocyte Absolute 0.01 K/mm3 (0.00-0.031); Immature Granulocyte Percent A 0.2 % (0-0.5); Lymphocytes Absolute Auto 1.29 K/mm3 (0.9-3.2); Lymphocytes Percent Auto 23.5 % (18.3-44.2); Mean Corpuscular HGB Conc 31.8 g/dl (32-36); Mean Corpuscular Hemoglobin 28.4 pg (26-34); Mean Corpuscular Volume 89.3 fl (80-100); Mean Platelet Volume 9.8 fl (7.4-10.4); Monocytes Absolute Auto 0.5 K/mm3 (0.1-0.6); Monocytes Percent Auto 8.9 % (2.6-8.5); Neutrophils Absolute Auto 3.6 K/mm3 (1.3-6.7); Neutrophils Percent Auto 64.8 % (45.5-73.1); Platelet Count Result 267 k/mm3 (150-375); Red Blood Count 4.22 M/mm3 (4.2-5.4); Red Cell Distribution Width 14.3 % (11.5-14.5); White Blood Count 5.5 K/mm3 (4.5-10.0)
[2024-02-16 05:21] LABS: Alanine Aminotransferase 27 U/L (6-35); Albumin Level 3.9 g/dL (3.5-5.1); Alkaline Phosphatase 73 U/L (38-126); Anion Gap 3 mmol/L (4-12); Aspartate Amino Transferase 38 U/L (14-36); Bilirubin,Total 0.9 mg/dL (0.2-1.3); Blood Urea Nitrogen 9 mg/dL (7-17); Calcium 8.8 mg/dL (8.4-10.2); Carbon Dioxide 34 mmol/L (22-30); Chloride 103 mmol/L (98-107); Estimated CRCL calculation 54 ml/min; Estimated Glomerular Filt Rate > 60; Glucose 95 mg/dL (65-110); Magnesium 2.1 mg/dL (1.6-2.3); Potassium 3.2 mmol/L (3.4-5.0); Sodium 140 mmol/L (137-145)
[2024-02-16] MEDS: LEVOTHYROXINE SODIUM 88 MCG TABLET PO (05:41)
[2024-02-16] MEDS: FLUTICASONE/SALMETEROL 115-21 MCG INHALER 1 PUFF 2 PUFF INHALATION ×2 (07:39→20:52)
[2024-02-16] MEDS: ENOXAPARIN 80 MG/0.8 ML SYRINGE 65 MG SUB-Q (08:51)
[2024-02-16] MEDS: lisinopriL 20 MG TABLET 40 MG PO (08:52)
[2024-02-16] MEDS: MULTIVITAMINS THERAPEUTIC TAB (*BKC) 1 TABLET PO (08:52)
[2024-02-16] MEDS: VENLAFAXINE HCL XR 75 MG CAP.ER.24H PO (08:52)
[2024-02-16] MEDS: CHOLECALCIFEROL 1,000 UNITS TABLET 1000 UNITS PO (08:52)
[2024-02-16] MEDS: DIPHENOXYLATE/ATROPINE (*CRX) 2.5 MG TABLET 1 TABLET PO (08:52)
[2024-02-16] MEDS: METOPROLOL TARTRATE 12.5 MG TABLET PO ×2 (08:52→20:31)
[2024-02-16] MEDS: ASPIRIN 81 MG ENTERIC TABLET PO (08:52)
[2024-02-16] MEDS: ATORVASTATIN 40 MG TABLET PO (08:52)
[2024-02-16] MEDS: MUPIROCIN 2% OINT 22 GM TUBE 1 APPLIC EACH NARE ×2 (08:56→20:31)
[2024-02-16] MEDS: PANTOPRAZOLE SODIUM IV 40 MG VIAL IV PUSH ×2 (09:01→20:31)
[2024-02-16] MEDS: hydroCHLOROthiazide 12.5 MG CAPSULE PO (09:06)
[2024-02-16] MEDS: POTASSIUM CHLORIDE 20 MEQ ER TABLET 60 MEQ PO (13:12)
[2024-02-16] MEDS: VANCOMYCIN HCL 125 MG ORAL CAPSULE PO (15:34)
--- NOTE | 2024-02-16 17:11 | P.PNIM_ITS ---
Progress Note: A&P Assessment and Plan (1) Sepsis: Code(s): A41.9 - Sepsis, unspecified organism Status: Acute Assessment and Plan: Patient presented with hypovolemia, lactic acidosis, electrolyte imbalance, hy pothermic -initial lactic acid was 4.4, received 30 mL/kg IV fluid bolus - lactic acid normal -hypothermia resolved with Darell Hugger -urine output has been adequate -discontinued Zosyn and vancomycin (02/13). -blood pressures have been stable Temperature 100.3, monitor urine and blood culture still pending (2) Intractable nausea and vomiting: Code(s): R11.2 - Nausea with vomiting, unspecified Status: Acute Assessment and Plan: Patient presented with gastroenteritis with nausea, vomiting and diarrhea, likely dehydration, electrolyte disturbances with hypokalemia and hypomagnesemia -could be related to gastroenteritis versus lymphocytic colitis which the patient has history of -CT abdomen pelvis is negative monitor patient noted she is planned for biologic outpatient (3) Diarrhea: Code(s): R19.7 - Diarrhea, unspecified Status: Acute Assessment and Plan: Patient has been having significant diarrhea secondary to lymphocytic colitis which she has a history of -patient is on Lomotil at home, but no bowel movements overnight (4) Atrial fibrillation with rapid ventricular response: Code(s): I48.91 - Unspecified atrial fibrillation Status: Acute Assessment and Plan: New onset AFib RVR could be related to sepsis, electrolyte imbalance -according the ER notes when patient was given potassium and magnesium a AFib RVR rates improved -rate controlled -Eliquis 5 mg p.o. b.i.d. -DC Cardizem infusion Continue Metoprolol 12.5 mg and Eliquis Cardiology signed off (5) Acute hypokalemia: Code(s): E87.6 - Hypokalemia Status: Acute Assessment and Plan: Hypokalemia likely related to diarrhea, nausea, vomiting -continue to replete and recheck (6) Hypothermia, not associated with low environmental temperature: Code(s): R68.0 - Hypothermia, not associated with low environmental temperature Status: Acute Assessment and Plan: Hypothermia likely related to sepsis, gastroenteritis, hypovolemia -patient was on Darell Hugger but now off, currently body temperatures have been stable (7) Hypothyroidism: Qualifiers: Hypothyroidism type: acquired Qualified Code(s): E03.9 - Hypothyroidism, unspecified Code(s): E03.9 - Hypothyroidism, unspecified Status: Acute Assessment and Plan: Continue levothyroxine (8) Microscopic colitis: Qualifiers: Microscopic colitis type: lymphocytic colitis Qualified Code(s): K52.832 - Lymphocytic colitis Code(s): K52.839 - Microscopic colitis, unspecified Status: Acute Assessment and Plan: Symptoms have improved No diarrhea overnight (9) Hypertension: Qualifiers: Hypertension type: primary hypertension Qualified Code(s): I10 - Essential (primary) hypertension Code(s): I10 - Essential (primary) hypertension Status: Acute Assessment and Plan: with elevated blood pressure BP 179/90 Restarted Lisinopril and added HCTZ monitor (10) C. difficile diarrhea: Code(s): A04.72 - Enterocolitis due to Clostridium difficile, not specified as recurrent Status: Acute Assessment and Plan: Started on oral vancomycin Plan DVT prophylaxis: Lovenox Nutrition: Diet ordered Code Status: Full code Subjective Date/time seen: 02/16/24 17:11 Interval history: Replaced potassium 60 mg p.o.. Patient switched to oral anticoagulant . Patient was started on Zosyn because of suspicious intra-abdominal infectious process but today we discontinue. Patient has a past medical history of lymphocytic colitis. During current admission patient is positive for C diff and started on oral vancomycin .Possible discharge tomorrow. Review of Systems Review of Systems: All other systems reviewed and negative except as noted in the history above. All systems reviewed & are unremarkable except as noted in HPI and below Exam Narrative: General: Pleasant female, in no the distress HEENT:? Pupils equal and reactive, sclera is clear, moist oral mucosa Neck:? Supple Respiratory:, clear to auscultation bilateral, no wheezing, adequate air entry Cardiac:? S1-S2 normal, regular rate and rhythm Abdomen:? Soft, nontender, nondistended, present bowel sounds Extremities: No edema, palpable pedal pulses Neuro:? Patient is awake, alert, oriented x3, nonfocal Skin:? Warm and dry Psych:? Normal mentation and affect Const: General: comfortable HENMT: Mouth: Yes dry mucous membranes Eyes: EOM: EOMs intact bilaterally Neck: Neck: no JVD Resp: Effort & Inspection: normal respiratory effort Auscultation: clear to auscultation bilaterally Cardio: Rate: regular rate Rhythm: regular rhythm Neuro: Speech: normal speech Extrem: General: no edema Objective Data Vital Signs Vital Signs: Vital Signs - 24 hr 02/15/24 18:00 02/15/24 20:24 02/15/24 20:28 Temperature 98.7 F Pulse Rate 73 71 Respiratory Rate 18 Blood Pressure 153/75 H Pulse Oximetry 98 97 Oxygen Delivery Room Air 02/15/24 20:28 02/15/24 20:43 02/15/24 20:00 Temperature Pulse Rate 70 83 Respiratory Rate Blood Pressure Pulse Oximetry Oxygen Delivery Room Air 02/15/24 20:00 02/15/24 22:00 02/16/24 00:29 Temperature 98.9 F Pulse Rate 76 68 62 Respiratory Rate 14 Blood Pressure 136/67 Pulse Oximetry 94 Oxygen Delivery 02/16/24 00:00 02/16/24 00:00 02/16/24 02:00 Temperature Pulse Rate 65 65 Respiratory Rate Blood Pressure Pulse Oximetry Oxygen Delivery Room Air 02/16/24 04:00 02/16/24 04:46 02/16/24 04:00 Temperature 98.5 F Pulse Rate 77 77 Respiratory Rate 14 Blood Pressure 157/74 H Pulse Oximetry 97 Oxygen Delivery Room Air 02/16/24 05:46 02/16/24 06:00 02/16/24 08:00 Temperature 98.9 F Pulse Rate 77 87 Respiratory Rate 16 Blood Pressure 147/64 H 121/72 Pulse Oximetry 95 Oxygen Delivery 02/16/24 08:52 02/16/24 08:00 02/16/24 08:00 Temperature Pulse Rate 94 94 88 Respiratory Rate 16 Blood Pressure Pulse Oximetry 95 Oxygen Delivery Room Air 02/16/24 10:00 02/16/24 12:00 02/16/24 16:00 Temperature 97.5 F L 98.0 F Pulse Rate 108 H 107 H 76 Respiratory Rate 16 Blood Pressure 129/80 133/84 Pulse Oximetry 96 98 Oxygen Delivery Intake/Output Intake/Output: Intake & Output 02/13/24 02/14/24 02/15/24 02/16/24 23:59 23:59 23:59 23:59 Intake Total 5174.7 2688.8 1100 Output Total 5100 3150 1775 Balance 74.7 -461.2 -675 Meds/Results Medications: Active Medications Generic Name Dose Route Start Last Admin Trade Name Freq PRN Reason Stop Dose Admin Acetaminophen 650 mg 02/14/24 16:00 02/15/24 14:34 Acetaminophen 325 Mg Tablet PO 650 mg Q4H PRN Administration Mild Pain (1-3) or Fever Albuterol 2 puff 02/15/24 08:57 Albuterol Sulfate (*Sp) Aerosol 1 Puff INHALATION Q4H PRN shortness of breath or wheezing Alprazolam 0.25 mg 02/14/24 19:21 02/15/24 21:22 Alprazolam (*Crx) 0.25 Mg Tablet PO 0.25 mg TID PRN Administration Anxiety Aspirin 81 mg 02/15/24 09:00 02/16/24 08:52 Aspirin 81 Mg Enteric Tablet PO 81 mg QAM CASTILLO Administration Atorvastatin Calcium 40 mg 02/15/24 09:00 02/16/24 08:52 Atorvastatin 40 Mg Tablet PO 40 mg DAILY CASTILLO Administration Diphenoxylate HCl/Atropine 1 tablet 02/15/24 09:00 02/16/24 08:52 Diphenoxylate/Atropine (*Crx) 2.5 Mg Tablet PO 1 tablet DAILY CASTILLO Administration Enoxaparin Sodium 65 mg 02/14/24 21:00 02/16/24 08:51 Enoxaparin 80 Mg/0.8 Ml Syringe SUB-Q 65 mg Q12HR CASTILLO Administration Hydralazine HCl 10 mg 02/14/24 18:02 02/16/24 04:41 Hydralazine Hcl 20 Mg/Ml Vial IV PUSH 10 mg Q4HR PRN Administration Hypertension Hydrochlorothiazide 12.5 mg 02/15/24 14:15 02/16/24 09:06 Hydrochlorothiazide 12.5 Mg Capsule PO 12.5 mg QAM CASTILLO Administration Levothyroxine Sodium 88 mcg 02/16/24 06:30 02/16/24 05:41 Levothyroxine Sodium 88 Mcg Tablet PO 88 mcg DAILY@0630 CASTILLO Administration Lisinopril 40 mg 02/15/24 14:15 02/16/24 08:52 Lisinopril 20 Mg Tablet PO 40 mg DAILY CASTILLO Administration Meclizine HCl 25 mg 02/15/24 08:57 02/15/24 17:47 Meclizine Hcl 25 Mg Tablet PO 25 mg BID PRN Administration dizziness Metoprolol Tartrate 12.5 mg 12/02/24 09:00 02/16/24 08:52 Metoprolol Tartrate 12.5 Mg Tablet PO 12.5 mg Q12HR CASTILLO Administration Multivitamins Therapeutic 1 tablet 02/15/24 09:00 02/16/24 08:52 Multivitamins Therapeutic Tab (*Bkc) PO 1 tablet DAILY CASTILLO Administration Mupirocin 1 applic 02/14/24 21:00 02/16/24 08:56 Mupirocin 2% Oint 22 Gm Tube EACH NARE 1 applic Q12HR CASTILLO Administration Ondansetron HCl 4 mg 02/14/24 12:56 02/15/24 09:36 Ondansetron Inj 4 Mg/2 Ml Vial IV PUSH 4 mg Q4H PRN Administration Nausea And Vomiting Pantoprazole Sodium 40 mg 02/14/24 11:10 02/16/24 09:01 Pantoprazole Sodium Iv 40 Mg Vial IV PUSH 40 mg Q12HR CASTILLO Administration Fluticasone/Salmeterol 2 puff 02/15/24 08:00 02/16/24 07:39 Fluticasone/Salmeterol 115-21 Mcg Inhaler 1 Puff INHALATION 2 puff Q12HRT CASTILLO Administration Vancomycin HCl 125 mg 02/16/24 14:30 02/16/24 15:34 Vancomycin Hcl 125 Mg Oral Capsule PO 02/26/24 06:01 125 mg Q6HR CASTILLO Administration Venlafaxine HCl 75 mg 02/15/24 09:00 02/16/24 08:52 Venlafaxine Hcl Xr 75 Mg Cap.Er.24h PO 75 mg DAILY CASTILLO Administration Vitamin D 1,000 units 02/15/24 09:00 02/16/24 08:52 Cholecalciferol 1,000 Units Tablet PO 1,000 units DAILY CASTILLO Administration Radiology Results: ITS Impressions Chest X-Ray 02/14/24 06:07 IMPRESSION: 1. Mild atelectasis at left lung base. Abdomen/Pelvis CT 02/14/24 07:19 IMPRESSION: 1. Small sliding hiatal hernia. Labs Labs: Laboratory Results - last 24 hr 02/16/24 04:35 WBC 5.5 RBC 4.22 Hgb 12.0 Hct 37.7 MCV 89.3 MCH 28.4 MCHC 31.8 L RDW 14.3 Plt Count 267 MPV 9.8 Immature Gran % (Auto) 0.2 Neut % (Auto) 64.8 Lymph % (Auto) 23.5 [place] % (Auto) 8.9 H Eos % (Auto) 1.5 Baso % (Auto) 1.1 Lymph # (Auto) 1.29 [place] # (Auto) 0.5 Eos # (Auto) 0.1 Baso # (Auto) 0.1 Abs Immat Gran (auto) 0.01 Absolute Neuts (auto) 3.6 Absolute Nucleated RBC 0.000 Nucleated RBC % 0.0 Sodium 140 Potassium 3.2 L Chloride 103 Carbon Dioxide 34 H Anion Gap 3 L BUN 9 Creatinine 0.80 Estim Creat Clear Calc 54 Estimated GFR > 60 Glucose 95 Calcium 8.8 Phosphorus 4.0 Magnesium 2.1 Total Bilirubin 0.9 AST 38 H ALT 27 Alkaline Phosphatase 73 Total Protein 7.0 Albumin 3.9 Hospitalist MIPS Advance Care Plan I have confirmed that the patient's Advanced Care Plan is present, code status is documented, or surrogate decision maker is listed in patient medical record.: Yes Medication Reconciliation I have utilized all available resources to obtain, update and review the patients current medications (includes all prescriptions, OTC, herbals, cannabis, and nutritional supplements).: Yes
[2024-02-16 17:44] LABS: Potassium 3.7 mmol/L (3.4-5.0)
[2024-02-16] MEDS: APIXABAN 5 MG TABLET PO (20:30)
--- NOTE | 2024-02-16 21:35 | PC.NURSE ---
This patient, Ely Wei, was transferred to Room 258 on 02/16/24 at 2128. Personal belongings sent with patient. Report given to Genesis LOUIE. Appropriate documentation sent with patient.
[2024-02-17] VITALS (14 sets, daily range): BP systolic 120–167; BP diastolic 63–97; PULSE 76–100; RESP 12–18; TEMP 36.4–36.9; O2SAT 94–99
[2024-02-17] MEDS: VANCOMYCIN HCL 125 MG ORAL CAPSULE PO ×5 (00:03→23:56)
[2024-02-17] MEDS: LEVOTHYROXINE SODIUM 88 MCG TABLET PO (05:47)
[2024-02-17 06:00] LABS: Hematocrit 38.7 % (37.0-47.0); Hemoglobin 12.2 g/dL (12.0-15.0); Mean Corpuscular HGB Conc 31.5 g/dl (32-36); Mean Corpuscular Hemoglobin 28.2 pg (26-34); Mean Corpuscular Volume 89.4 fl (80-100); Mean Platelet Volume 9.8 fl (7.4-10.4); Platelet Count Result 275 k/mm3 (150-375); Red Blood Count 4.33 M/mm3 (4.2-5.4); Red Cell Distribution Width 14.4 % (11.5-14.5); White Blood Count 4.8 K/mm3 (4.5-10.0)
[2024-02-17 06:10] LABS: Alanine Aminotransferase 28 U/L (6-35); Alkaline Phosphatase 70 U/L (38-126); Anion Gap 3 mmol/L (4-12); Aspartate Amino Transferase 36 U/L (14-36); Bilirubin,Total 0.7 mg/dL (0.2-1.3); Blood Urea Nitrogen 13 mg/dL (7-17); Calcium 9.2 mg/dL (8.4-10.2); Carbon Dioxide 33 mmol/L (22-30); Chloride 103 mmol/L (98-107); Estimated CRCL calculation 54 ml/min; Estimated Glomerular Filt Rate > 60; Glucose 98 mg/dL (65-110); Magnesium 1.9 mg/dL (1.6-2.3); Phosphorus 4.7 mg/dL (2.5-4.5); Potassium 3.3 mmol/L (3.4-5.0); Sodium 139 mmol/L (137-145)
[2024-02-17] MEDS: hydrALAZINE HCL 20 MG/ML VIAL 10 MG IV PUSH (06:11)
[2024-02-17] MEDS: ALPRAZolam (*CRX) 0.25 MG TABLET PO ×2 (06:33→20:34)
[2024-02-17] MEDS: FLUTICASONE/SALMETEROL 115-21 MCG INHALER 1 PUFF 2 PUFF INHALATION ×2 (07:05→20:34)
[2024-02-17] MEDS: METOPROLOL TARTRATE 12.5 MG TABLET PO ×2 (08:48→20:28)
[2024-02-17] MEDS: PANTOPRAZOLE SODIUM IV 40 MG VIAL IV PUSH ×2 (08:48→20:31)
[2024-02-17] MEDS: ONDANSETRON INJ 4 MG/2 ML VIAL IV PUSH (08:48)
[2024-02-17] MEDS: CHOLECALCIFEROL 1,000 UNITS TABLET 1000 UNITS PO (08:49)
[2024-02-17] MEDS: ATORVASTATIN 40 MG TABLET PO (08:49)
[2024-02-17] MEDS: ASPIRIN 81 MG ENTERIC TABLET PO (08:49)
[2024-02-17] MEDS: APIXABAN 5 MG TABLET PO ×2 (08:49→20:28)
[2024-02-17] MEDS: DIPHENOXYLATE/ATROPINE (*CRX) 2.5 MG TABLET 1 TABLET PO (08:49)
[2024-02-17] MEDS: VENLAFAXINE HCL XR 75 MG CAP.ER.24H PO (08:49)
[2024-02-17] MEDS: MULTIVITAMINS THERAPEUTIC TAB (*BKC) 1 TABLET PO (08:49)
[2024-02-17] MEDS: lisinopriL 20 MG TABLET 40 MG PO (08:50)
[2024-02-17] MEDS: MUPIROCIN 2% OINT 22 GM TUBE 1 APPLIC EACH NARE ×2 (08:50→20:29)
[2024-02-17] MEDS: POTASSIUM CHLORIDE 20 MEQ ER TABLET 60 MEQ PO (09:00)
--- NOTE | 2024-02-17 09:52 | P.PNIM_ITS ---
Progress Note: A&P Assessment and Plan (1) Sepsis: Code(s): A41.9 - Sepsis, unspecified organism Status: Acute Assessment and Plan: Patient presented with hypovolemia, lactic acidosis, electrolyte imbalance, hy pothermic -initial lactic acid was 4.4, received 30 mL/kg IV fluid bolus - lactic acid normal -hypothermia resolved with Darell Hugger -urine output has been adequate -discontinued Zosyn and vancomycin (02/13). -blood pressures have been stable Temperature 100.3, monitor urine shows no growth and preliminary blood culture shows no growth (2) Intractable nausea and vomiting: Code(s): R11.2 - Nausea with vomiting, unspecified Status: Acute Assessment and Plan: Patient presented with gastroenteritis with nausea, vomiting and diarrhea, likely dehydration, electrolyte disturbances with hypokalemia and hypomagnesemia -could be related to gastroenteritis versus lymphocytic colitis which the patient has history of -CT abdomen pelvis is negative monitor patient noted she is planned for biologic outpatient (3) Diarrhea: Code(s): R19.7 - Diarrhea, unspecified Status: Acute Assessment and Plan: Patient has been having significant diarrhea secondary to lymphocytic colitis which she has a history of -patient is on Lomotil at home, but no bowel movements overnight (4) Atrial fibrillation with rapid ventricular response: Code(s): I48.91 - Unspecified atrial fibrillation Status: Acute Assessment and Plan: New onset AFib RVR could be related to sepsis, electrolyte imbalance -according the ER notes when patient was given potassium and magnesium a AFib RVR rates improved -rate controlled -Eliquis 5 mg p.o. b.i.d. -DC Cardizem infusion Continue Metoprolol 12.5 mg and Eliquis Cardiology signed off (5) Acute hypokalemia: Code(s): E87.6 - Hypokalemia Status: Acute Assessment and Plan: Hypokalemia likely related to diarrhea, nausea, vomiting -continue to replete and recheck (6) Hypothermia, not associated with low environmental temperature: Code(s): R68.0 - Hypothermia, not associated with low environmental temperature Status: Acute Assessment and Plan: Hypothermia likely related to sepsis, gastroenteritis, hypovolemia -patient was on Darell Hugger but now off, currently body temperatures have been stable (7) Hypothyroidism: Qualifiers: Hypothyroidism type: acquired Qualified Code(s): E03.9 - Hyp othyroidism, unspecified Code(s): E03.9 - Hypothyroidism, unspecified Status: Acute Assessment and Plan: Continue levothyroxine (8) Microscopic colitis: Qualifiers: Microscopic colitis type: lymphocytic colitis Qualified Code(s): K52.832 - Lymphocytic colitis Code(s): K52.839 - Microscopic colitis, unspecified Status: Acute Assessment and Plan: Symptoms have improved No diarrhea overnight (9) Hypertension: Qualifiers: Hypertension type: primary hypertension Qualified Code(s): I10 - Essential (primary) hypertension Code(s): I10 - Essential (primary) hypertension Status: Acute Assessment and Plan: with elevated blood pressure BP 179/90 Restarted Lisinopril and added HCTZ monitor (10) C. difficile diarrhea: Code(s): A04.72 - Enterocolitis due to Clostridium difficile, not specified as recurrent Status: Acute Assessment and Plan: Started on oral vancomycin Will complete the course on 02 25 Plan DVT prophylaxis: Lovenox Nutrition: Diet ordered Code Status: Full code Subjective Date/time seen: 02/17/24 09:52 Interval history: Patient is feeling dizzy, nauseous. Holding discharge until tomorrow. Patient will be discharged with potassium supplement. Patient family is very concerned about hydrochlorothiazide since the patient occasionally cause dizziness. Even though her sodium was normal due to the family consents hydrochlorothiazide will be discontinued and started hydralazine 12.5 mg q.i.d. and added amlodipine 5 mg p.o. q.d.. Patient can follow-up with the PCP and with her BP log and adjust her medications as needed upon discharge. Review of Systems Review of Systems: All other systems reviewed and negative except as noted in the history above. All systems reviewed & are unremarkable except as noted in HPI and below Exam Narrative: General: Pleasant female, in no the distress HEENT:? Pupils equal and reactive, sclera is clear, moist oral mucosa Neck:? Supple Respiratory:, clear to auscultation bilateral, no wheezing, adequate air entry Cardiac:? S1-S2 normal, regular rate and rhythm Abdomen:? Soft, nontender, nondistended, present bowel sounds Extremities: No edema, palpable pedal pulses Neuro:? Patient is awake, alert, oriented x3, nonfocal Skin:? Warm and dry Psych:? Normal mentation and affect Const: General: comfortable HENMT: Mouth: Yes dry mucous membranes Eyes: EOM: EOMs intact bilaterally Neck: Neck: no JVD Resp: Effort & Inspection: normal respiratory effort Auscultation: clear to auscultation bilaterally Cardio: Rate: regular rate Rhythm: regular rhythm Neuro: Speech: normal speech Extrem: General: no edema Objective Data Vital Signs Vital Signs: Vital Signs - 24 hr 02/16/24 10:00 02/16/24 12:00 02/16/24 16:00 Temperature 97.5 F L 98.0 F Pulse Rate 108 H 107 H 76 Respiratory Rate 16 Blood Pressure 129/80 133/84 Pulse Oximetry 96 98 Oxygen Delivery 02/16/24 12:00 02/16/24 16:00 02/16/24 20:31 Temperature Pulse Rate 73 74 107 H Respiratory Rate Blood Pressure Pulse Oximetry Oxygen Delivery 02/16/24 20:00 02/16/24 20:55 02/16/24 20:00 Temperature 97.8 F Pulse Rate 102 H 83 80 Respiratory Rate 16 Blood Pressure 149/80 H Pulse Oximetry 97 Oxygen Delivery 02/16/24 20:00 02/16/24 21:49 02/17/24 00:00 Temperature 97.4 F L Pulse Rate 67 95 Respiratory Rate 18 Blood Pressure 159/85 H Pulse Oximetry 96 Oxygen Delivery Room Air 02/17/24 03:20 02/17/24 06:11 02/17/24 06:29 Temperature 97.5 F L 98.5 F Pulse Rate 76 91 94 Respiratory Rate 18 Blood Pressure 123/69 167/97 H 159/76 H Pulse Oximetry 96 Oxygen Delivery 02/17/24 07:05 02/17/24 08:16 02/17/24 08:48 Temperature Pulse Rate 80 97 91 Respiratory Rate 18 14 Blood Pressure 141/82 H Pulse Oximetry 96 97 Oxygen Delivery Room Air Intake/Output Intake/Output: Intake & Output 02/14/24 02/15/24 02/16/24 02/17/24 23:59 23:59 23:59 23:59 Intake Total 5174.7 2688.8 1460 600 Output Total 5100 3150 1975 0 Balance 74.7 -461.2 -515 600 Meds/Results Medications: Active Medications Generic Name Dose Route Start Last Admin Trade Name Freq PRN Reason Stop Dose Admin Acetaminophen 650 mg 02/14/24 16:00 02/15/24 14:34 Acetaminophen 325 Mg Tablet PO 650 mg Q4H PRN Administration Mild Pain (1-3) or Fever Albuterol 2 puff 02/15/24 08:57 Albuterol Sulfate (*Sp) Aerosol 1 Puff INHALATION Q4H PRN shortness of breath or wheezing Alprazolam 0.25 mg 02/14/24 19:21 02/17/24 06:33 Alprazolam (*Crx) 0.25 Mg Tablet PO 0.25 mg TID PRN Administration Anxiety Amlodipine Besylate 5 mg 02/18/24 09:00 Amlodipine Besylate 5 Mg Tablet PO DAILY CASTILLO Apixaban 5 mg 02/16/24 21:00 02/17/24 08:49 Apixaban 5 Mg Tablet PO 5 mg Q12HR CASTILLO Administration Aspirin 81 mg 02/15/24 09:00 02/17/24 08:49 Aspirin 81 Mg Enteric Tablet PO 81 mg QAM CASTILLO Administration Atorvastatin Calcium 40 mg 02/15/24 09:00 02/17/24 08:49 Atorvastatin 40 Mg Tablet PO 40 mg DAILY CASTILLO Administration Diphenoxylate HCl/Atropine 1 tablet 02/15/24 09:00 02/17/24 08:49 Diphenoxylate/Atropine (*Crx) 2.5 Mg Tablet PO 1 tablet DAILY CASTILLO Administration Hydralazine HCl 10 mg 02/14/24 18:02 02/17/24 06:11 Hydralazine Hcl 20 Mg/Ml Vial IV PUSH 10 mg Q4HR PRN Administration Hypertension Hydralazine HCl 12.5 mg 02/17/24 13:00 Hydralazine 12.5 Mg Tablet PO QID CASTILLO Levothyroxine Sodium 88 mcg 02/16/24 06:30 02/17/24 05:47 Levothyroxine Sodium 88 Mcg Tablet PO 88 mcg DAILY@0630 CASTILLO Administration Lisinopril 40 mg 02/15/24 14:15 02/17/24 08:50 Lisinopril 20 Mg Tablet PO 40 mg DAILY CASTILLO Administration Meclizine HCl 25 mg 02/15/24 08:57 02/15/24 17:47 Meclizine Hcl 25 Mg Tablet PO 25 mg BID PRN Administration dizziness Metoprolol Tartrate 12.5 mg 02/15/24 09:00 02/17/24 08:48 Metoprolol Tartrate 12.5 Mg Tablet PO 12.5 mg Q12HR CASTILLO Administration Multivitamins Therapeutic 1 tablet 02/15/24 09:00 02/17/24 08:49 Multivitamins Therapeutic Tab (*Bkc) PO 1 tablet DAILY CASTILLO Administration Mupirocin 1 applic 02/14/24 21:00 02/17/24 08:50 Mupirocin 2% Oint 22 Gm Tube EACH NARE 1 applic Q12HR CASTILLO Administration Ondansetron HCl 4 mg 02/14/24 12:56 02/17/24 08:48 Ondansetron Inj 4 Mg/2 Ml Vial IV PUSH 4 mg Q4H PRN Administration Nausea And Vomiting Pantoprazole Sodium 40 mg 02/14/24 11:10 02/17/24 08:48 Pantoprazole Sodium Iv 40 Mg Vial IV PUSH 40 mg Q12HR CASTILLO Administration Fluticasone/Salmeterol 2 puff 02/15/24 08:00 02/17/24 07:05 Fluticasone/Salmeterol 115-21 Mcg Inhaler 1 Puff INHALATION 2 puff Q12HRT CASTILLO Administration Vancomycin HCl 125 mg 02/17/24 00:00 02/17/24 05:46 Vancomycin Hcl 125 Mg Oral Capsule PO 02/26/24 12:01 125 mg Q6HR CASTILLO Administration Venlafaxine HCl 75 mg 02/15/24 09:00 02/17/24 08:49 Venlafaxine Hcl Xr 75 Mg Cap.Er.24h PO 75 mg DAILY CASTILLO Administration Vitamin D 1,000 units 02/15/24 09:00 02/17/24 08:49 Cholecalciferol 1,000 Units Tablet PO 1,000 units DAILY CASTILLO Administration Radiology Results: ITS Impressions Chest X-Ray 02/14/24 06:07 IMPRESSION: 1. Mild atelectasis at left lung base. Abdomen/Pelvis CT 02/14/24 07:19 IMPRESSION: 1. Small sliding hiatal hernia. Labs Labs: Laboratory Results - last 24 hr 02/16/24 02/17/24 17:16 05:39 WBC 4.8 RBC 4.33 Hgb 12.2 Hct 38.7 MCV 89.4 MCH 28.2 MCHC 31.5 L RDW 14.4 Plt Count 275 MPV 9.8 Sodium 139 Potassium 3.7 3.3 L Chloride 103 Carbon Dioxide 33 H Anion Gap 3 L BUN 13 Creatinine 0.80 Estim Creat Clear Calc 54 Estimated GFR > 60 Glucose 98 Calcium 9.2 Phosphorus 4.7 H Magnesium 1.9 Total Bilirubin 0.7 AST 36 ALT 28 Alkaline Phosphatase 70 Total Protein 8.0 Albumin 4.0 Hospitalist MIPS Advance Care Plan I have confirmed that the patient's Advanced Care Plan is present, code status is documented, or surrogate decision maker is listed in patient medical record.: Yes Medication Reconciliation I have utilized all available resources to obtain, update and review the patients current medications (includes all prescriptions, OTC, herbals, cannabis, and nutritional supplements).: Yes
[2024-02-17] MEDS: amLODIPine BESYLATE 5 MG TABLET PO (10:30)
[2024-02-17] MEDS: hydrALAZINE 12.5 MG TABLET PO ×3 (12:51→20:28)
[2024-02-18] VITALS: PULSE 72
[2024-02-18 01:00] VITALS: BP 123/60; PULSE 92; RESP 18; TEMP 36.8; O2SAT 97
[2024-02-18 04:00] VITALS: PULSE 69
[2024-02-18 04:20] VITALS: BP 132/74; PULSE 80; RESP 18; TEMP 36.7; O2SAT 100
[2024-02-18] MEDS: VANCOMYCIN HCL 125 MG ORAL CAPSULE PO (06:14)
[2024-02-18] MEDS: LEVOTHYROXINE SODIUM 88 MCG TABLET PO (06:14)
[2024-02-18 06:15] LABS: Hematocrit 39.1 % (37.0-47.0); Hemoglobin 12.2 g/dL (12.0-15.0); Mean Corpuscular HGB Conc 31.2 g/dl (32-36); Mean Corpuscular Hemoglobin 28.2 pg (26-34); Mean Corpuscular Volume 90.5 fl (80-100); Mean Platelet Volume 9.9 fl (7.4-10.4); Platelet Count Result 287 k/mm3 (150-375); Red Blood Count 4.32 M/mm3 (4.2-5.4); Red Cell Distribution Width 14.6 % (11.5-14.5); White Blood Count 5.2 K/mm3 (4.5-10.0)
[2024-02-18 06:32] LABS: Alanine Aminotransferase 87 U/L (6-35); Albumin Level 3.9 g/dL (3.5-5.1); Alkaline Phosphatase 84 U/L (38-126); Anion Gap 5 mmol/L (4-12); Aspartate Amino Transferase 133 U/L (14-36); Bilirubin,Total 0.6 mg/dL (0.2-1.3); Blood Urea Nitrogen 14 mg/dL (7-17); Calcium 9.2 mg/dL (8.4-10.2); Carbon Dioxide 31 mmol/L (22-30); Chloride 104 mmol/L (98-107); Estimated CRCL calculation 44 ml/min; Estimated Glomerular Filt Rate 56; Glucose 94 mg/dL (65-110); Magnesium 2.1 mg/dL (1.6-2.3); Phosphorus 5.2 mg/dL (2.5-4.5); Potassium 3.8 mmol/L (3.4-5.0); Sodium 140 mmol/L (137-145)
[2024-02-18 08:00] VITALS: PULSE 77
[2024-02-18] MEDS: FLUTICASONE/SALMETEROL 115-21 MCG INHALER 1 PUFF 2 PUFF INHALATION (08:09)
[2024-02-18] MEDS: ATORVASTATIN 40 MG TABLET PO (08:47)
[2024-02-18] MEDS: ASPIRIN 81 MG ENTERIC TABLET PO (08:47)
[2024-02-18] MEDS: hydrALAZINE 12.5 MG TABLET PO (08:47)
[2024-02-18] MEDS: MULTIVITAMINS THERAPEUTIC TAB (*BKC) 1 TABLET PO (08:47)
[2024-02-18] MEDS: DIPHENOXYLATE/ATROPINE (*CRX) 2.5 MG TABLET 1 TABLET PO (08:47)
[2024-02-18] MEDS: amLODIPine BESYLATE 5 MG TABLET PO (08:47)
[2024-02-18] MEDS: APIXABAN 5 MG TABLET PO (08:47)
[2024-02-18] MEDS: lisinopriL 20 MG TABLET 40 MG PO (08:47)
[2024-02-18] MEDS: PANTOPRAZOLE SODIUM IV 40 MG VIAL IV PUSH (08:47)
[2024-02-18] MEDS: CHOLECALCIFEROL 1,000 UNITS TABLET 1000 UNITS PO (08:47)
[2024-02-18] MEDS: VENLAFAXINE HCL XR 75 MG CAP.ER.24H PO (08:47)
[2024-02-18 08:48] VITALS: PULSE 87
[2024-02-18] MEDS: MUPIROCIN 2% OINT 22 GM TUBE 1 APPLIC EACH NARE (08:48)
[2024-02-18] MEDS: METOPROLOL TARTRATE 12.5 MG TABLET PO (08:48)
--- NOTE | 2024-02-18 09:19 | PM.DS ---
DS: Admitting Diagnosis Discharge Date 02/18/2024 Admitting Diagnosis Weakness DS: Discharge Diagnosis Discharge Diagnosis (1) Sepsis: Code(s): A41.9 - Sepsis, unspecified organism Status: Acute Assessment and Plan: Please refer to hospital course for brief summary Patient presented with hypovolemia, lactic acidosis, electrolyte imbalance, hypothermic -initial lactic acid was 4.4, received 30 mL/kg IV fluid bolus - lactic acid normal -hypothermia resolved with Darell Hugger -urine output has been adequate -discontinued Zosyn and vancomycin (02/13). -blood pressures have been stable Temperature 100.3, monitor urine shows no growth and preliminary blood culture shows no growth (2) Intractable nausea and vomiting: Code(s): R11.2 - Nausea with vomiting, unspecified Status: Acute Assessment and Plan: Patient presented with gastroenteritis with nausea, vomiting and diarrhea, likely dehydration, electrolyte disturbances with hypokalemia and hypomagnesemia -could be related to gastroenteritis versus lymphocytic colitis which the patient has history of -CT abdomen pelvis is negative monitor patient noted she is planned for biologic outpatient (3) Diarrhea: Code(s): R19.7 - Diarrhea, unspecified Status: Acute Assessment and Plan: Patient has been having significant diarrhea secondary to lymphocytic colitis which she has a history of -patient is on Lomotil at home, but no bowel movements overnight (4) Atrial fibrillation with rapid ventricular response: Code(s): I48.91 - Unspecified atrial fibrillation Status: Acute Assessment and Plan: New onset AFib RVR could be related to sepsis, electrolyte imbalance -according the ER notes when patient was given potassium and magnesium a AFib RVR rates improved -rate controlled -Eliquis 5 mg p.o. b.i.d. -DC Cardizem infusion Continue Metoprolol 12.5 mg and Eliquis Cardiology signed off (5) Acute hypokalemia: Code(s): E87.6 - Hypokalemia Status: Acute Assessment and Plan: Hypokalemia likely related to diarrhea, nausea, vomiting -continue to replete and recheck (6) Hypothermia, not associated with low environmental temperature: Code(s): R68.0 - Hypothermia, not associated with low environmental temperature Status: Acute Assessment and Plan: Hypothermia likely related to sepsis, gastroenteritis, hypovolemia -patient was on Darell Hugger but now off, currently body temperatures have been stable (7) Hypothyroidism: Qualifiers: Hypothyroidism type: acquired Qualified Code(s): E03.9 - Hypothyroidism, unspecified Code(s): E03.9 - Hypothyroidism, unspecified Status: Acute Assessment and Plan: Continue levothyroxine (8) Microscopic colitis: Qualifiers: Microscopic colitis type: lymphocytic colitis Qualified Code(s): K52.832 - Lymphocytic colitis Code(s): K52.839 - Microscopic colitis, unspecified Status: Acute Assessment and Plan: Symptoms have improved No diarrhea overnight (9) Hypertension: Qualifiers: Hypertension type: primary hypertension Qualified Code(s): I10 - Essential (primary) hypertension Code(s): I10 - Essential (primary) hypertension Status: Acute Assessment and Plan: with elevated blood pressure BP 179/90 Restarted Lisinopril and added HCTZ monitor (10) C. difficile diarrhea: Code(s): A04.72 - Enterocolitis due to Clostridium difficile, not specified as recurrent Status: Acute Assessment and Plan: Started on oral vancomycin Will complete the course on 02 25 DS: Summary Hospital Course Hospital Course: 63 year old female with significant past medical history of hypokalemia, anemia, anxiety, coronary artery disease, depression, history of COVID-19, hyperlipidemia, history of urinary tract infection, hypertension, hypothyroidism, lymphocytic colitis who presented to the ER on account of vomiting and diarrhea associated with lightheadedness. Denies any chest pain, shortness over, no fever no personal no focal symptoms. Patient noted she was diagnosed of Lymphocytic colitis with chronic diarrhea, noted that she has about 6-9 episodes per day. Patient was initially admitted in the ICU for sepsis which was treated with Zosyn and vancomycin. Later vancomycin was discontinued. Patient also had a new onset of AFib with RVR for which Cardiology was consulted. Patient was started on metoprolol 12.5 b.i.d. and Eliquis 5 mg p.o. b.i.d.. Add patient recovered and was transferred to the floor. During the hospitalization patient also diagnosed with C diff and started on oral vancomycin. Patient had episodes of hyperkalemia which was replenished with oral potassium. Patient today was doing well and at discharged with the following instruction. Her blood pressure medication has been changed from hydrochlorothiazide to hydralazine. Advised to follow up with PCP for Potassium Level and BP check. During hospitalization patient HCTZ was discontinued and started Hydralazine 12.5 PO QID and Amlodipine 5 mg PO QD. Also during hospitalization patient was diagnosed with A.Fibrillation and started Metoprolol 12.5 PO BID and Apixaban (Eliquis) 5mg PO BID. During discharge her Potassium is normal and ordered lab. Advised to do lab in a week and discuss with PCP if her Potassium is low and starting daily Potassium level. Advised to follow up with Logistics System Engineer in a week Status at Discharge Cognitive/behavioral status at discharge: Stable Time Spent with Patient Time attestation: Total time spent providing and/or coordinating discharge services: 45 minutes Exam Narrative: General: Pleasant female, in no the distress HEENT:? Pupils equal and reactive, sclera is clear, moist oral mucosa Neck:? Supple Respiratory:, clear to auscultation bilateral, no wheezing, adequate air entry Cardiac:? S1-S2 normal, regular rate and rhythm Abdomen:? Soft, nontender, nondistended, present bowel sounds Extremities: No edema, palpable pedal pulses Neuro:? Patient is awake, alert, oriented x3, nonfocal Skin:? Warm and dry Psych:? Normal mentation and affect Const: General: comfortable HENMT: Mouth: Yes dry mucous membranes Eyes: EOM: EOMs intact bilaterally Neck: Neck: no JVD Resp: Effort & Inspection: normal respiratory effort Auscultation: clear to auscultation bilaterally Cardio: Rate: regular rate Rhythm: regular rhythm Neuro: Speech: normal speech Extrem: General: no edema DS: Data Data Completed and Pending Labs on day of discharge: Labs from last 24 hours 02/18/24 05:28 WBC 5.2 RBC 4.32 Hgb 12.2 Hct 39.1 MCV 90.5 MCH 28.2 MCHC 31.2 L RDW 14.6 H Plt Count 287 MPV 9.9 Sodium 140 Potassium 3.8 Chloride 104 Carbon Dioxide 31 H Anion Gap 5 BUN 14 Creatinine 1.00 Estim Creat Clear Calc 44 Estimated GFR 56 L Glucose 94 Calcium 9.2 Phosphorus 5.2 H Magnesium 2.1 Total Bilirubin 0.6 AST 133 H ALT 87 H Alkaline Phosphatase 84 Total Protein 8.0 Albumin 3.9 Preliminary micro results at discharge 02/14/24 02:45 Blood Culture - Preliminary Blood 02/14/24 02:45 Blood Culture - Preliminary Blood Imaging Radiologist's impression: ITS Impressions Chest X-Ray 02/14/24 06:07 IMPRESSION: 1. Mild atelectasis at left lung base. Abdomen/Pelvis CT 02/14/24 07:19 IMPRESSION: 1. Small sliding hiatal hernia. Discharge Plan Discharge Attending physician on discharge: Karthik Caal Consulting providers: Fina Harman; Liang Blackwell Discharging Clinician: Karthik Cala Anticipated Discharge Date/Time: 02/18/24 09:09 Patient Disposition: Home, Self-Care Activity: as tolerated Diet: as tolerated Discharge Instructions: Advised to follow up with PCP for Potassium Level and BP check. During hospitalization patient HCTZ was discontinued and started Hydralazine 12.5 PO QID and Amlodipine 5 mg PO QD. Also during hospitalization patient was diagnosed with A.Fibrillation and started Metoprolol 12.5 PO BID and Apixaban (Eliquis) 5mg PO BID. During discharge her Potassium is normal and ordered lab. Advised to do lab in a week and discuss with PCP if her Potassium is low and starting daily Potassium level. Advised to follow up with Logistics System Engineer in a week Patient Instructions: Antibiotic Form Stand Alone Forms: General Discharge Information Follow-up/Referrals: Liang Blackwell MD [Physician] - 1 Week Brianna Eldridge FNP-C [Primary Care Provider] - 1 Week (Advised to follow up with PCP for Potassium Level and BP check. During hospitalization patient HCTZ was discontinued and started Hydralazine 12.5 PO QID and Amlodipine 5 mg PO QD. Also during hospitalization patient was diagnosed with A.Fibrillation and started Metoprolol 12.5 PO BID and Apixaban (Eliquis) 5mg PO BID. During discharge her Potassium is normal and ordered lab. Advised to do lab in a week and discuss with PCP if her Potassium is low and starting daily Potassium level. ) Discharge Medications: New amlodipine [Norvasc] 5 mg Tablet 5 mg PO DAILY Qty: 30 0RF Eliquis 5 mg Tablet 5 mg PO Q12HR Qty: 60 0RF vancomycin 125 mg Capsule 125 mg PO Q6HR Qty: 40 0RF Rx Instructions: Please continue until 02/26/2024 hydralazine 10 mg tablet 12.5 mg PO QID Qty: 60 0RF Saccharomyces boulardii [Florastor] 250 mg capsule 250 mg PO BID Qty: 60 0RF Continued atorvastatin 40 mg tablet 40 mg PO DAILY meclizine 25 mg tablet 25 mg PO BID PRN (Reason: dizziness) Qty: 30 0RF alprazolam [Xanax] 0.25 mg tablet 0.25 mg PO DAILY PRN (Reason: anxiety) Qty: 30 0RF diphenoxylate-atropine 2.5-0.025 mg tablet 1 tablet PO DAILY metoprolol tartrate 25 mg tablet 12.5 mg PO BID levothyroxine 88 mcg tablet See Rx Instructions .ROUTE .COMPLEX Qty: 90 3RF Dose Instruction: Take 1 tablet by mouth once daily Rx Instructions: Take 1 tablet by mouth once daily venlafaxine 75 mg capsule,extended release 24hr 75 mg PO DAILY Qty: 90 3RF multivitamin Tablet 1 tablet PO DAILY aspirin 81 mg Tablet 81 mg PO DAILY cholecalciferol (vitamin D3) [Vitamin D3] 25 mcg (1,000 unit) Capsule 25 mcg PO DAILY albuterol sulfate 90 mcg/actuation HFA aerosol inhaler 2 puff inhalation Q4H PRN (Reason: shortness of breath or wheezing) Qty: 6.7 0RF fluticasone propion-salmeterol [Advair Diskus] 250-50 mcg/dose blister with device 1 inh inhalation BID Qty: 60 3RF lisinopril 40 mg tablet 40 mg PO DAILY Qty: 90 1RF Date of admission: 02/14/24 06:22 Primary Care Provider: Brianna Eldridge Admitting Provider: Riri Schroeder Attending physician on admission: Riri Schroeder Condition: Stable
--- NOTE | 2024-02-20 10:43 | PC.NURSE ---
call from pt's daughter Amber, she states that pt is having blood in her urine, she states pt is not feeling ill, and is asking if hospitalist can order lab work for this pt, I advised her to contact PMD or return to ED, as we cannot place orders post discharge for lab work
== END 2024-02-18 10:45 | disposition home or self-care (01) | DRG 872 ==
LOC: ANHED 07:12 → ANHICU 07:34 → ANHIMU 02-15 15:29 → ANH2MED 02-18 09:19 → ANHIMU 02-19 12:48 → ANH2MED 02-19 12:48
PROVIDERS: Internal Medicine; Physician Assistant; Admitting Provider Internal Medicine; Emergency Provider Student in an Organized Health Care Education/Training Program; PCP Clinical Nurse Specialist; Visit Provider General Practice
DX: A41.89 Other specified sepsis (principal); A04.72 Enterocolitis due to Clostridium difficile, not specified as recurrent; A49.02 Methicillin resistant Staphylococcus aureus infection, unspecified site; K52.832 Lymphocytic colitis; K52.9 Noninfective gastroenteritis and colitis, unspecified; I10 Essential (primary) hypertension; E03.9 Hypothyroidism, unspecified; E86.0 Dehydration; E87.6 Hypokalemia; E78.5 Hyperlipidemia, unspecified; I48.0 Paroxysmal atrial fibrillation; I25.10 Atherosclerotic heart disease of native coronary artery without angina pectoris; R68.0 Hypothermia, not associated with low environmental temperature; Z79.82 Long term (current) use of aspirin; Z28.21 Immunization not carried out because of patient refusal; Z95.5 Presence of coronary angioplasty implant and graft; Z86.16 Personal history of COVID-19
CPT/HCPCS: 36415; 71045; 74176; 80048; 80053; 80202; 81003; 83036; 83605; 83690; 83735; 84100; 84132; 84443; 84484; 85025; 85027; 85610; 85730; 86140; 87040; 87086; 87493; 87641; 93005; 94640; 96361; 96365; 96367; 96375; 99285; A9270; C8929; J0360; J0650; J0780; J1650; J2060; J2405; J2470; J2543; J2765; J3370; J3475; J3480; J7040; J7120; Q9957

== ENCOUNTER 2024-02-20 13:08 | Outpatient (CLI) | payer MEDICARE, SELFPAY ==
[2024-02-20 14:08] LABS: Basophils Absolute Auto 0.1 K/mm3 (0.0-0.1); Eosinophils Absolute Auto 0.1 K/mm3 (0-0.3); Hematocrit 38.6 % (37.0-47.0); Hemoglobin 12.3 g/dL (12.0-15.0); Immature Granulocyte Absolute 0.02 K/mm3 (0.00-0.031); Immature Granulocyte Percent A 0.3 % (0-0.5); Lymphocytes Absolute Auto 1.17 K/mm3 (0.9-3.2); Lymphocytes Percent Auto 19.3 % (18.3-44.2); Mean Corpuscular HGB Conc 31.9 g/dl (32-36); Mean Corpuscular Hemoglobin 28.8 pg (26-34); Mean Corpuscular Volume 90.4 fl (80-100); Monocytes Absolute Auto 0.6 K/mm3 (0.1-0.6); Monocytes Percent Auto 9.2 % (2.6-8.5); Neutrophils Absolute Auto 4.1 K/mm3 (1.3-6.7); Neutrophils Percent Auto 68.2 % (45.5-73.1); Platelet Count Result 281 k/mm3 (150-375); Red Blood Count 4.27 M/mm3 (4.2-5.4); Red Cell Distribution Width 14.6 % (11.5-14.5); White Blood Count 6.1 K/mm3 (4.5-10.0)
[2024-02-20 14:21] LABS: Add Urine Microscopic? YES; Appearance Urine Cloudy (Clear); Bacteria Urine None Seen /hpf; Bilirubin Urine Negative (Negative); Blood Urine 3+ (Negative); Color Urine Yellow (Yellow); Glucose Urine UA Negative (Negative); Ketones Urine Negative (Negative); Leukocyte Esterase Ur Negative LEU/UL (Negative); Nitrate Urine Negative (Negative); Protein Urine Trace mg/dL (Negative); RBC Urine 51-100 /hpf (0-2); Specific Grav Ur 1.016 (1.001-1.035); Squamous Epithelial Cell Urine Few /hpf (Few); Urobilinogen Urine 0.2 mg/dL (<2.0); WBC Urine 0-5 /hpf (0-3)
[2024-02-20 14:22] LABS: Alanine Aminotransferase 148 U/L (6-35); Albumin Level 4.4 g/dL (3.5-5.1); Alkaline Phosphatase 124 U/L (38-126); Anion Gap 8 mmol/L (4-12); Aspartate Amino Transferase 120 U/L (14-36); Bilirubin,Total 0.6 mg/dL (0.2-1.3); Blood Urea Nitrogen 18 mg/dL (7-17); Calcium 9.5 mg/dL (8.4-10.2); Carbon Dioxide 29 mmol/L (22-30); Chloride 105 mmol/L (98-107); Estimated Glomerular Filt Rate > 60; Glucose 109 mg/dL (65-110); Potassium 3.9 mmol/L (3.4-5.0); Sodium 142 mmol/L (137-145)
== END 2024-02-20 13:09 | disposition home or self-care (01) ==
PROVIDERS: PCP Clinical Nurse Specialist; Visit Provider Nurse Practitioner Adult Health
DX: R31.0 Gross hematuria (principal); E87.6 Hypokalemia
CPT/HCPCS: 36415; 80053; 81001; 85025

== ENCOUNTER 2024-03-02 15:36 | Outpatient (CLI) | payer MEDICARE, SELFPAY ==
[2024-03-02 18:47] LABS: Basophils Absolute Auto 0.1 K/mm3 (0.0-0.1); Basophils Percent Auto 1.2 % (0.2-1.2); Eosinophils Absolute Auto 0.2 K/mm3 (0-0.3); Eosinophils Percent Auto 3.4 % (0-4.4); Hematocrit 38.4 % (37.0-47.0); Lymphocytes Percent Auto 25.9 % (18.3-44.2); Mean Corpuscular HGB Conc 31.3 g/dl (32-36); Mean Corpuscular Hemoglobin 28.4 pg (26-34); Mean Corpuscular Volume 90.8 fl (80-100); Mean Platelet Volume 10.3 fl (7.4-10.4); Monocytes Absolute Auto 0.5 K/mm3 (0.1-0.6); Monocytes Percent Auto 9.4 % (2.6-8.5); Neutrophils Percent Auto 60.1 % (45.5-73.1); Platelet Count Result 368 k/mm3 (150-375); Red Blood Count 4.23 M/mm3 (4.2-5.4); Red Cell Distribution Width 14.6 % (11.5-14.5)
[2024-03-02 18:59] LABS: Add Urine Microscopic? YES; Appearance Urine Clear (Clear); Bacteria Urine None Seen /hpf; Bilirubin Urine Negative (Negative); Blood Urine Negative (Negative); Color Urine Yellow (Yellow); Glucose Urine UA Negative (Negative); Ketones Urine Negative (Negative); Leukocyte Esterase Ur Trace LEU/UL (Negative); Nitrate Urine Negative (Negative); Non Pathogenic Casts 0-2; Protein Urine Negative (Negative); RBC Urine 0-2 /hpf (0-2); Specific Grav Ur 1.018 (1.001-1.035); Squamous Epithelial Cell Urine Few /hpf (Few); Urobilinogen Urine 0.2 mg/dL (<2.0); WBC Urine 0-5 /hpf (0-3)
[2024-03-02 19:07] LABS: Alanine Aminotransferase 48 U/L (6-35); Albumin Level 4.4 g/dL (3.5-5.1); Alkaline Phosphatase 100 U/L (38-126); Anion Gap 3 mmol/L (4-12); Aspartate Amino Transferase 49 U/L (14-36); Bilirubin,Total 0.5 mg/dL (0.2-1.3); Blood Urea Nitrogen 21 mg/dL (7-17); Calcium 9.7 mg/dL (8.4-10.2); Carbon Dioxide 29 mmol/L (22-30); Chloride 108 mmol/L (98-107); Estimated Glomerular Filt Rate > 60; Glucose 96 mg/dL (65-110); Magnesium 2.2 mg/dL (1.6-2.3); Potassium 4.4 mmol/L (3.4-5.0); Sodium 140 mmol/L (137-145)
[2024-03-02 19:32] LABS: Free T4 Free Thyroxine 1.41 ng/dL (0.78-2.19)
[2024-03-03 10:44] LABS: Triiodothyronine T3 Free 2.9 pg/mL (2.3-4.2)
== END 2024-03-02 15:37 | disposition home or self-care (01) ==
LOC: ANHGOSHLAB 15:38
PROVIDERS: PCP Internal Medicine; Visit Provider Clinical Nurse Specialist
DX: E03.9 Hypothyroidism, unspecified (principal); I10 Essential (primary) hypertension; E87.6 Hypokalemia; R31.0 Gross hematuria; I48.91 Unspecified atrial fibrillation
CPT/HCPCS: 36415; 80053; 81001; 83735; 84439; 84443; 84481; 85025

== ENCOUNTER 2024-04-19 15:49 | Emergency (ER) | payer MEDICARE, SELFPAY ==
--- NOTE | ~2024-04-19 | XR_ITS ---
EXAMINATION: XR foot LT min 3V DATE: 04/19/2024 16:26 INDICATION: Left foot injury. TECHNIQUE: 4 views of left foot were obtained. COMPARISON: None. FINDINGS: Alignment is normal. No fracture. There is mild osteoarthritis of first metatarsophalangeal joint and many of the interphalangeal joints. There is an enthesophyte at plantar aspect of calcanea l tuberosity. IMPRESSION: 1. Mild polyarticular osteoarthritis. Reviewed, dictated and finalized at location A. ER TENDER
[2024-04-19 16:08] VITALS: BP 125/77; PULSE 86; RESP 16; TEMP 37.4; O2SAT 98
--- NOTE | 2024-04-19 16:10 | ED_ITS ---
HPI - Wound/Laceration General Chief Complaint: Wound/Laceration Stated Complaint: INJURED L FOOT Time Seen by Provider: 04/19/24 16:10 Source: patient Mode of arrival: ambulatory Limitations: no limitations History of Present Illness HPI narrative: Ely is a 63-year-old female patient presenting to the clinic today with complaints of left foot injury. She reports she dropped a table leaf on the top of her foot approximate 1.5 hours prior to arrival. This is not up-to-date. Is having pain to the top of her foot and she has a small 1 cm laceration. Bleeding is controlled. Related Data Home Medications ?Medication ?Instructions ?Recorded ?Confirmed ?Last Taken ?Type aspirin 81 mg tablet 81 mg PO DAILY 05/08/20 04/19/24 Unknown History cholecalciferol (vitamin D3) 25 25 mcg PO DAILY 05/09/20 04/19/24 Unknown History mcg (1,000 unit) capsule (Vitamin D3) metoprolol tartrate 25 mg tablet 12.5 mg PO BID 06/11/20 04/19/24 Unknown History atorvastatin 40 mg tablet 40 mg PO DAILY 12/19/21 04/19/24 Unknown History multivitamin 1 tablet PO DAILY 02/27/23 04/19/24 Unknown History fluticasone 250 mcg-salmeterol 50 1 inh inhalation BID PRN allergic 03/02/24 04/19/24 Unknown History mcg/dose blistr powdr for symptoms inhalation (Advair Diskus) Allergies Allergy/AdvReac Type Severity Reaction Status Date / Time codeine Allergy Hives Verified 04/19/24 15:58 doxycycline Allergy headaches Verified 04/19/24 15:58 hydrocodone Allergy Hives Verified 04/19/24 15:58 morphine Allergy nausea/vomi Verified 04/19/24 15:58 ting pneumococcal vaccine (From Allergy Hives Verified 04/19/24 15:58 Pneumovax-23) Sulfa (Sulfonamide Allergy Hives Verified 04/19/24 15:58 Antibiotics) Review of Systems Review of Systems: Pertinent positives per HPI. Patient denies any fever, chills, rash, headache, visual changes, dizziness, cough, shortness of breath, chest pain, palpitations, nausea, vomiting, diarrhea, constipation, abdominal pain, or any urinary issues. PMFSH Past Medical History Medical History Gross hematuria Colitis Hospital discharge follow-up Cervical radiculopathy Microscopic colitis Acute sinusitis Cough External hemorrhoids Localized swelling, mass and lump, unspecified Heart disease Anemia Pleuritic chest pain Anxiety Depression Hypothyroidism History of urinary tract infection Irritable bowel syndrome Dyslipidemia Hypertension Coronary artery disease Migraines Acute hypokalemia Pneumonia due to COVID-19 virus Hypokalemia Abnormal chest x-ray COVID-19 (Unknown) Surgical History Surgical History H/O excision of dermoid cyst 03/22/2014 09/06/2018 History of hernia repair 08/06/2016 History of heart artery stent Family History Family History Father Heart disease Mother Hypertension Depression Cerebrovascular accident Other Inflammatory bowel disease Social History Social History Social History: The patient is and lives in [place] with her . She is a lifelong nonsmoker. No alcohol or illicit substance abuse. Her Josh is her surrogate decision maker and she wishes to be a full code. Caffeine-daily Smoking status: Never smoker Alcohol intake: never Substance use: never Substance use type: does not use Do You Feel Safe in your Home?: Yes Lack of Transportation: No Lack of Food: Never True Current Housing: I Have Housing Concerned About Future Housing: No Difficulty Paying Gas/Electric Bills: No Difficulty Paying for Meds: No Currently Unemployed: No Education: High School Diploma/GED Difficulty w/ Childcare or Family Care: No Spiritual care concerns: No Comments At the time of my signature, I reviewed and agree with the nursing past medical, surgical, social, and family history. There is no relevant family history pertinent to the patient complaint. Exam Narrative: General: Well-developed, well nourished, in no apparent distress Head: Normocephalic, atraumatic. Cardio: Regular rate and rhythm, s1 and s2 normal, no murmur appreciated. Resp: Clear to auscultation bilaterally, no rhonchi, rales, wheezing or rubs. Musculoskeletal: No deformity, mild swelling to the dorsal foot, 1 cm curved laceration to the top of the left foot with mild tenderness to palpation, bleeding controlled, grossly normal range of motion, muscle strength strong and equal, peripheral pulse strong, no edema, no cyanosis, sitting in a wheelchair. Course Course Emergency Course: Portions of this record may have been created with voice recognition software. Level of Care: Express Care Visit Vital Signs Vital signs: Vital Signs Temperature 37.4 C 04/19/24 16:08 Pulse Rate 86 04/19/24 16:08 Respiratory Rate 16 04/19/24 16:08 Blood Pressure 125/77 04/19/24 16:08 Pulse Oximetry 98 04/19/24 16:08 Temperature 37.4 C 04/19/24 16:08 Pulse Rate 86 04/19/24 16:08 Respiratory Rate 16 04/19/24 16:08 Blood Pressure 125/77 04/19/24 16:08 Pulse Oximetry 98 04/19/24 16:08 Vital signs reviewed Procedures Laceration Laceration 1: Date: 04/19/24 Site: other (Foot) Side (If applicable): left Size (cm): 1 Description: linear and irregular Depth: simple, single layer Local Anesthetic: lidocaine 1% Amount of anesthesia used (mL): 2 Pre-repair: wound explored and irrigated ====== Skin Level ====== Skin layer closed with: nylon Size (cm): 5-0 Number of sutures: 2 Technique: simple, interrupted ====== Subcutaneous Layer ====== ====== Muscle Layer ====== ====== Tendon Layer ====== Dressing: Verbal consent obtained for laceration repair. Risk and benefits explained and patient voiced understanding. Area was cleansed with antiseptic wound wash and a 25 gauge needle was then used to instill (2) ml of 1% lidocaine without epi into the wound edges. Area was prepped and draped using sterile technique. A 5-0 suture on a p needle was used to place (2) interrupted sutures bringing the wound edges together- well approximated. Patient tolerated procedure well. Sterile dressing applied. MDM - Wound/Laceration MDM Narrative Medical decision making narrative: At the time of visit patient is resting comfortably on the exam table. Patient appears to be nontoxic. Procedures: Laceration repair was performed to the left dorsal foot. Diagnostics: X-ray of the left foot was performed and was negative for any acute fracture or malalignment. Medications: Tdap was given in the clinic today Plan: Patient has foot laceration. X-rays negative for any fracture. 1 cm laceration was repaired using 2 interrupted sutures. Patient tolerated well. Supportive measures were discussed with the patient and they voiced understanding discharge instructions and agrees to treatment plan. Return precautions reviewed Differential Diagnosis Differential diagnosis: Likely laceration, abscess, abrasion and avulsion of skin Imaging Data Radiologist's impression: ITS Impressions Foot X-Ray 04/19/24 16:36 IMPRESSION: 1. Mild polyarticular osteoarthritis. Discharge Plan Discharge Clinical Impression: Contusion of foot Qualifiers: Encounter type: initial encounter Laterality: left Qualified Code(s): S90.32XA - Contusion of left foot, initial encounter Foot laceration Qualifiers: Encounter type: initial encounter Laterality: left Qualified Code(s): S91.312A - Laceration without foreign body, left foot, initial encounter Patient Disposition: Home, Self-Care Condition: Stable Instructions: Antibiotic Form, Care For Your Stitches (ED), Laceration (ED) Additional Instructions: X-ray of the left foot is negative for any signs of fractures, foreign body, or malalignment. Tdap given in the clinic today. Leave bandage on for 24 hours then may remove and apply band aide covering as needed. May apply triple antibiotic ointment to the wound twice daily times 48 hours then leave open to air Keep wound clean and dry Skin sutures out in 7 days. Watch for signs and symptoms of infection- redness, streaking, swelling, purulent discharge, or increase in pain. Follow up with your PCP for suture removal or return to the [facility] care. Patient Language: Solomon Islander Prescriptions: No Action atorvastatin 40 mg tablet 40 mg PO DAILY alprazolam [Xanax] 0.25 mg tablet 0.25 mg PO DAILY PRN (Reason: anxiety) Qty: 30 0RF metoprolol tartrate 25 mg tablet 12.5 mg PO BID levothyroxine 88 mcg tablet See Rx Instructions .ROUTE .COMPLEX Qty: 90 3RF Dose Instruction: Take 1 tablet by mouth once daily Rx Instructions: Take 1 tablet by mouth once daily multivitamin Tablet 1 tablet PO DAILY fluticasone propion-salmeterol [Advair Diskus] 250-50 mcg/dose blister with device 1 inh inhalation BID PRN (Reason: allergic symptoms) potassium chloride 20 mEq tablet,ER particles/crystals 20 meq PO DAILY Qty: 7 0RF ondansetron 4 mg tablet,disintegrating 4 mg PO Q6H PRN (Reason: nausea and vomiting) Qty: 30 0RF aspirin 81 mg Tablet 81 mg PO DAILY cholecalciferol (vitamin D3) [Vitamin D3] 25 mcg (1,000 unit) Capsule 25 mcg PO DAILY albuterol sulfate 90 mcg/actuation HFA aerosol inhaler 2 puff inhalation Q4H PRN (Reason: shortness of breath or wheezing) Qty: 6.7 0RF lisinopril 40 mg tablet 40 mg PO DAILY Qty: 90 1RF amlodipine [Norvasc] 5 mg tablet 5 mg PO DAILY Qty: 90 1RF venlafaxine 75 mg capsule,extended release 24hr 75 mg PO DAILY Qty: 90 1RF Saccharomyces boulardii [Florastor] 250 mg capsule 250 mg PO BID Qty: 60 0RF Follow-up/Referrals: Mervin Jay DO [Primary Care Provider] - Time of Disposition: 16:59 Quality NIHSS Nursing Documentation ED NIHSS nursing documentation: reviewed/agree
[2024-04-19] MEDS: TETANUS,DIPHTHERIA,AC PERTUSSIS ADULT (0.5 ML) BOOSTRIX IM (17:04)
== END 2024-04-19 17:01 | disposition home or self-care (01) ==
PROVIDERS: Emergency Provider Nurse Practitioner Family; PCP Internal Medicine
DX: S91.312A Laceration without foreign body, left foot, initial encounter (principal); S90.32XA Contusion of left foot, initial encounter; I25.10 Atherosclerotic heart disease of native coronary artery without angina pectoris; I10 Essential (primary) hypertension; E03.9 Hypothyroidism, unspecified; Z79.899 Other long term (current) drug therapy; Z79.82 Long term (current) use of aspirin; Z23 Encounter for immunization; W20.8XXA Other cause of strike by thrown, projected or falling object, initial encounter
CPT/HCPCS: 73630; 90471; 90715; 99213; G0463

== ENCOUNTER 2024-05-18 07:43 | Emergency (ER) | payer MEDICARE, SELFPAY ==
--- NOTE | ~2024-05-18 | CT_ITS ---
EXAMINATION: CT brain wo con DATE: 05/18/2024 12:04 INDICATION: Dizziness. TECHNIQUE: Computed tomography (CT) of the head was performed without intravenous contrast. The mA wa s adjusted according to patient size. Iterative reconstruction technique was employed. The dose-lengt h product was 605.33 mGy-cm. COMPARISON: Head CT 05/20/2021 FINDINGS: There is no intracranial hemorrhage, acute infarction, or abnormal intracranial mass lesion . The ventricles are normal in size. There is mucosal thickening in the paranasal sinuses. The orbits are normal. The mastoid air cells are normal. IMPRESSION: 1. Normal brain. Reviewed, dictated and finalized at location A. CONDUCTOR PROCESSING TECHNICIAN IMPRESSION: 1. Normal brain.
[2024-05-18 07:45] VITALS: BP 151/109; PULSE 86; RESP 16; TEMP 36.6; O2SAT 100
--- OUTSIDE RECORDS SUMMARY | 2024-05-18 07:46 | XMS_ITS | Encounter Summary ---
Author Organization [facility] Address [address] [place] [address] Phone Care Team Providers Care Automatic Vulcanizing Operator Name Role Phone Mervin Jay DO Primary Care Provider [phone] Encounter Details Date Type Department Care Team (Late st Contact Info) Description 09/22/2018 Orders Only [facility] Scanning, Provider Social History Tobacco Use Types Packs/Day Years Used Date Smoking Tobacco: Never Assessed Comments Unknown Sex and Gender Information Value Date Recorded Sex Assigned at Not on file Legal Sex Female 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 Gender Identity Not on file Sexual Orientation Not on file documented as of this encounter Plan of Treatment Not on file documented as of this encounter Procedures Procedure Name Priority Date/Time Associated Diagnosis Comments SCAN - LABS 09/22/2018 documented in this encounter Results * SCAN - LABS (09/22/2018) us Provider Scanning Final Result documented in this encounter Visit Diagnoses Not on filedocumented in this encounter Care Teams Automatic Vulcanizing Operator Relationship Specialty Start Date End Date Mervin Jay DO PCP - General Internal Medicine 10/21/21 documented as of this encounter
--- OUTSIDE RECORDS SUMMARY | 2024-05-18 07:46 | XMS_ITS | Encounter Summary ---
Author Organization [facility] Address [address] [place] [address] Care Team Providers Care Regulatory Scientist Name Role Phone Jina Banda MD Primary Care Provider Unav ailable Encounter Details Date Type Department Care Team (Late st Contact Info) Description 06/06/1998 Outpatient Historical [facility] Internal Medicine - [facility] [id number] [place] [address] [address] [place] [address] Jina Banda MD NO ADDRESS ON FILE Social History Tobacco Use Types Packs/Day Years Used Date Smoking Tobacco: Never Assessed Comments Unknown Sex and Gender Information Value Date Recorded Sex Assigned at Not on file 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 Gender Identity Not on file Sexual Orientation Not on file documented as of this encounter Plan of Treatment Upcoming Encounters Date Type Department Care Team (Late st Contact Info) Description 09/08/2024 12:00 PM CDT Office Visit [facility] Heart and Vascular At [address] [place] [address] Randal Cooley MD [address] [place] [address] [address] [place] [address] 10/27/2024 10:00 AM CDT Office Visit [facility] Heart and Vascular At [address] [place] [address] Randal Cooley MD [address] [place] [address] [address] [place] [address] 10/28/2024 9:30 AM CDT Office Visit [facility] Urology [facility] [address] [facility] [address] [place] [address] [place] [address] [facility] [address] [facility] [address] [place] [address] documented as of this encounter Visit Diagnoses Not on filedocumented in this encounter Additional Health Concerns Infection Onset Date Last Indicated Resolved Time R/O COVID-19 11/08/2019 11/08/2019 11/11/2019 12:3 1 AM CDT R/O COVID-19 02/01/2020 02/01/2020 02/03/2020 2:00 AM LIQUID CENTER ASSEMBLER documented as of this encounter Care Teams Regulatory Scientist Relationship Specialty Start Date End Date Jina Banda MD PCP - General Internal Medicine 06/20/16 12/03/21 documented as of this encounter
--- OUTSIDE RECORDS SUMMARY | 2024-05-18 07:46 | XMS_ITS | Encounter Summary ---
Author Organization [facility] Address [address] [facility] Attn: [place] [address] Care Team Providers Care Conformal Pad Former Name Role Phone Jina Banda MD Primary Care Provider Unav ailable Encounter Details Date Type Department Care Team (Late st Contact Info) Description 04/08/1989 Outpatient Historical Sahil Tsang MD [address] [place] [address] Social History Tobacco Use Types Packs/Day Years Used Date Smoking Tobacco: Never Assessed Comments Unknown Sex and Gender Information Value Date Recorded Sex Assigned at Not on file 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 Gender Identity Not on file Sexual Orientation Not on file documented as of this encounter Plan of Treatment Upcoming Encounters Date Type Department Care Team (Late st Contact Info) Description 09/08/2024 12:00 PM CDT Office Visit [facility] Heart and Vascular At [address] [place] [address] Randal Cooley MD [address] [place] [address] [address] [place] [address] 10/27/2024 10:00 AM CDT Office Visit [facility] Heart and Vascular At [address] [place] [address] Randal Cooley MD [address] [place] [address] [address] [place] [address] 10/28/2024 9:30 AM CDT Office Visit [facility] Urology [facility] [address] [facility] [address] [place] [address] [place] [address] [facility] [place] [address] documented as of this encounter Visit Diagnoses Not on filedocumented in this encounter Additional Health Concerns Infection Onset Date Last Indicated Resolved Time R/O COVID-19 11/08/2019 11/08/2019 11/11/2019 12:3 1 AM CDT R/O COVID-19 02/01/2020 02/01/2020 02/03/2020 2:00 AM PAPER MACHINE BACKTENDER documented as of this encounter Care Teams Conformal Pad Former Relationship Specialty Start Date End Date Jina Banda MD PCP - General Internal Medicine 06/20/16 12/03/21 documented as of this encounter
--- OUTSIDE RECORDS SUMMARY | 2024-05-18 07:46 | XMS_ITS | Encounter Summary ---
Author Organization [employer] Address [address] [place] [address] Care Team Providers Care Remediation Technician Name Role Phone Jina Banda MD Primary Care Provider Unav ailable Encounter Details Date Type Department Care Team (Late st Contact Info) Description 02/26/2015 Nurse Triage Report [facility] Miladis Celestin, RN [address] [place] [address] Social History Tobacco Use Types Packs/Day Years Used Date Smoking Tobacco: Never Smokeless Tobacco: Never Alcohol Use Standard Drinks/Week Comments No 0 (1 standard drink = 0.6 oz pur e alcohol) Comments No Sex and Gender Information Value Date Recorded Sex Assigned at Not on file 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 Report feedback to Dr. Jina Banda Associated Symptoms: chills, fever as high as 102.0 yesterday, no fever today, nausea, diarrhea, vomiting over 12 times past 5 hours Onset: 24 hours ago Location: general body Pain Assessment: 1 - 10 with 10 being the most severe pain aches all over History (Clinical Problems): Started feeling ill yesterday, the patients daughter was sick with the same type of illness Medications: Reviewed Medication reactions: Reviewed <<<<<<<< TRIAGE NOTE >>>>>>>> Triage Note: Business Initiatives Manager Eleni Celestin added this note on Feb 26 2015 9:36PM: will call office in the morning is patient is not better. <<<<<<<< TRIAGE/OUTCOME >>>>>>>> Guideline Title: Nausea or Vomiting Recommended Disposition: Provide Home/Self Care Original Inclination: Self Management Intended Action: Self Management Physician Contacted: No All other situations ? YES GRADER documented in this encounter Plan of Treatment Upcoming Encounters Date Type Department Care Team (Late st Contact Info) Description 09/08/2024 12:00 PM CDT Office Visit [facility] Heart and Vascular At [address] [place] [address] Randal Cooley MD [address] [place] [address] [address] [place] [address] 10/27/2024 10:00 AM CDT Office Visit [facility] Heart and Vascular At [address] [place] [address] Randal Cooley MD [address] [place] [address] [address] [place] [address] 10/28/2024 9:30 AM CDT Office Visit [facility] Urology [address] [place] [address] [place] [address] [facility] [address] [place] [address] documented as of this encounter Visit Diagnoses Not on filedocumented in this encounter Additional Health Concerns Infection Onset Date Last Indicated Resolved Time R/O COVID-19 11/08/2019 11/08/2019 11/11/2019 12:3 1 AM CDT R/O COVID-19 02/01/2020 02/01/2020 02/03/2020 2:00 AM CLAM GRADER documented as of this encounter Care Teams Remediation Technician Relationship Specialty Start Date End Date Jina Banda MD PCP - General Internal Medicine 06/20/16 12/03/21 documented as of this encounter
--- OUTSIDE RECORDS SUMMARY | 2024-05-18 07:46 | XMS_ITS | Continuity of Care Document ---
Author Organization [facility] Address [address] [place] [address] Phone Care Team Providers Care Sports Equipment Racker Name Role Phone Surgery [facility] Unavailable Unavailable Advance Directives Directive Yes / No Effective Date File Name No Information Encounters Encounter Description Practice Location Reason(s) For Visit Diagnoses Date Provider Providers Copied on Encounter [facility] [place], [address], [id number], [place] tel:[phone] [facility] [place] [facility] No Information Surgery - [facility] [facility] [address], [place], [id number], [place]. tel:[phone] Referring Provider: Volodymyr Vicente, [address] [place], [address]. tel:[phone] Family History Family Member Type Diagnosis Age At Onset No Information Payers Payer name Insurance type Covered democrat ID Authoriza tion(s) [facility] [id number] Social History Type Description Quantity Date Captured [...]
--- OUTSIDE RECORDS SUMMARY | 2024-05-18 07:46 | XMS_ITS | Clinical Summary ---
Author Organization [employer] Fernanda Peterson Address [address] [place] [address] Phone Care Team Providers Care Training Program Assistant Name Role Phone Unavailable Primary Care Provider Unavailabl e Allergies Active Allergy Reactions Criticality Noted Date Comments Doxycycline Headache Low 07/14/2016 Hydrocodone Hives High 10/27/2019 Morphine Nausea and Vomiting Low 12/21/2012 Pneumococcal 23-Isis Ps Vaccine Other (See Comments) 10/19/2019 Headache, nausea, vomiting. Sulfa (Sulfonamide Antibiotics) Hives High 12/27/2007 Medications VITAMIN B-12 1,000 mcg Oral Tab Take 2 Tabs by mouth daily. Active cholecalciferol (vitamin D3) 25 mcg (1,000 unit) tablet Take by mouth daily. Active aspirin (SUBHASH CHEWABLE) 81 mg Tablet, Chewable Take 81 mg by mouth daily. Active ALPRAZolam (XANAX) 0.25 mg tabletIndications:Gene ralized anxiety disorder TAKE 1 TABLET BY MOUTH EVERY NIGHT AT BEDTIME NEEDED 30 Tablet 2020 Active levothyroxine 88 mcg tabletIndications:Hypo thyroidism, unspecified type TAKE 1 TABLET(88 MCG) BY MOUTH DAILY 30 Tablet 2020 Active diphenoxylate-atropine 2.5 mg-0.025 mg tablet Take 2 Tablets by mouth 2 times daily. 2022 Active estradioL (ESTRACE) 0.01% (0.1 mg/g) vaginal cream Insert vaginally daily. 42.5 Gram 6 2022 Active venlafaxine (EFFEXOR XR) 75 mg Extended Release 24 hour capsule Take 75 mg by mouth daily. 2022 Active estriol 0.5/estradiol 0.1 mg vaginal suppository compound Insert 1 suppository vaginally at bedtime nightly for 2 weeks, then twice weekly thereafter. 34 Suppository 2 024 3:27 PM CDT 2023 Active lisinopriL (PRINIVIL) 20 mg tablet Take 40 mg by mouth daily. 2023 Active albuterol sulfate HFA 90 mcg/actuation aerosol inhaler Take 2 Puffs by inhalation every 6 hours as needed for Shortness of Breath. Active amLODIPine (NORVASC) 5 mg tablet Take 5 mg by mouth daily. Active SACCHAROMYCES BOULARDII ORAL Take by mouth. Active vancomycin (VANCOCIN) 125 mg Capsule Take 125 mg by mouth every 6 hours. Active atorvastatin (LIPITOR) 40 mg tabletIndications:Pure hypercholesterolemia TAKE 1 TABLET BY MOUTH ONCE DAILY AT BEDTIME 90 Tablet 3 2023 Active oxyBUTYnin (DITROPAN XL) 10 mg Extended Release 24 hour tablet Take 1 Tablet (10 mg) by mouth daily. 30 Tablet 6 2024 Active nitrofurantoin (MACROBID) 100 mg capsule Take 1 Capsule (100 mg) by mouth daily in the morning. 30 Capsule 10 2024 Active nitrofurantoin (MACROBID) 100 mg capsule Take 1 Capsule (100 mg) by mouth daily in the morning. 30 Capsule 4 04/29 Discontinued Active Problems Patient Care Coordination No te Formatting of this note migh t be different from the original. GI-- Dr. Haile Derm-- Dr. 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 Previous celiac testing negative though IgA patient. 09/2018: Celiac HLA testing permissive. Consider repeat duodenal biopsies if indicated? 02/2019: upper endoscopy duodenal biopsy without evidence for gluten sensitive enteropathy. Chronic anemia 07/31/2016 Overview (07/31/2016): Mild chronic - runs in the 11 range. Negative stool cards 2016 IgA deficiency 07/31/2016 Overview (07/31/2016): TO SEE ALLERGY. PLEASE NOTE IF NEEDS BLOOD PRODUCTS Acquired hypothyroidism 04/27/2015 Pure hypercholesterolemia 01/23/2015 S/P coronary artery stent placement 08/10/2014 Dyspareunia 12/07/2013 Pelvic floor dysfunction 12/07/2013 Generalized anxiety disorder 11/08/2009 Vitamin B12 deficiency 11/08/2009 Iron deficiency anemia, unspecified 10/15/2004 Overview (05/26/2010): Negative colonoscopy, EGD and celiac antibodies in 2008; negative small bowel xray; biopsies negative for sprue Resolved Problems Problem Noted Date Diagnosed Date Resolved Date Lesion of vulva 09/06/2018 01/03/2021 Chest pain 05/25/2017 06/04/2018 Abnormal C-reactive protein 11/25/2016 06/04/2018 Preoperative clearance 06/19/201610/03 Right inguinal hernia 06/03/20162018 Palpitations 07/23/2015 10/03/2016 Gross hematuria 06/18/2015 06/04/2018 Elevated LFTs 10/13/2014 06/04/2018 Overview (02/21/2015): Statin currently on hold. Liver enzymes improved with stopping lipitor. Screening for chronic liver disease negative. Coronary artery disease due to calcified coronary lesion 08/10/2014 03/04/2020 Overview (11/17/2014): 08/04/2014: Cath, PCI with 3.0x9 mm FRANSISCO to mid LAD, PTCA of sm LADD1 Hyperlipidemia 08/10/2014 01/23/2015 Recurrent UTI 12/07/2013 01/03/2021 Microscopic hematuria 12/07/20132020 Acute pharyngitis 05/26/2007 01/14/2008 Nausea alone 09/07/2006 01/14/2008 Other specified visual disturbances 06/16/2006 01/14/2008 Pain in joint, pelvic region and thigh 02/25/2006 01/14/2008 Routine general medical exam ination at a health care facility 02/25/2006 01/14/2008 Need for prophylactic vaccin ation with tetanus-diphtheria (Td) 02/25/2006 01/14/2008 Injury, other and unspecifie d, knee, leg, ankle, and foot 12/22/2005 01/14/2008 Other affections of shoulder region, not elsewhere classified 12/22/2005 11/08/2009 Fever, unspecified 04/14/2005 8 Overview (04/10/2010): Updating IMO/ICD9 Code and Description Acute maxillary sinusitis 02/12/2005 Unspecified sinusitis (chronic) 10/15/2004 01/14/2008 Unspecified hearing loss 10/15/2000 Syncope and collapse 10/14/2000 008 Atypical chest pain 01/04/20 21 Encounters Date Type Department Care Team Description 05/17/2024 External Device Data ST[facility] ABSTRACTION Provider, Abstract 05/10/2024 External Device Data [facility] ABSTRACTION Provider, Abstract 05/04/2024 External Device Data [facility] ABSTRACTION Provider, Abstract 05/03/2024 10:20 AM MEAT LOINER Office Visit [facility] [address] [place] [id number] Jodee Wells PA 04/29/2024 10:00 AM MEAT LOINER Procedure visit [facility] [id number] [place] [address] [address] [place] [address] Frankie Haas MD Gross hematuria (Primary Dx); Frequency of urination; Acute cystitis with hematuria; Urgency of micturition; Postmenopausal atrophic vaginitis; Nocturia 04/12/2024 External Device Data STL ABSTRACTION Provider, Abstract 04/06/2024 External Device Data STL ABSTRACTION Provider, Abstract 03/22/2024 8:59 AM MEAT LOINER - 03/22/2024 11:59 PM MEAT LOINER Hospital Encounter [facility] [address] [address] Jania Bhat NP Discharge Disposition: Home or Self Care 03/22/2024 8:52 AM MEAT LOINER - 03/22/2024 11:59 PM MEAT LOINER Hospital Encounter [facility] [address] [address] Donnie Centeno MD Discharge Disposition: Home or Self Care 03/15/[address] [address] Hieu Masterson RN RFA PRE PROCEDURE CALL 03/10/2024 11:45 AM MEAT LOINER Office Visit [facility] [address] [place] [address] Randal Cooley MD Lone atrial fibrillation (CMS/HCC) (Primary Dx); S/P coronary artery stent placement; Pure hypercholesterolemia; Benign hypertension; Palpitations; Coronary artery disease involving wainwright coronary artery of wainwright heart without angina pectoris 03/10/2024 Refill [facility] [address] [place] [address] Randal Cooley MD Pure hypercholesterolemia 03/07/2024 9:59 AM MEAT LOINER - 03/07/2024 11:59 PM MEAT LOINER Hospital Encounter [facility] [address] [address] Jania Bhat NP Sethi, Pawan S, MD Discharge Disposition: Home or Self Care 03/07/2024 9:49 AM MEAT LOINER - 03/07/2024 11:59 PM MEAT LOINER Hospital Encounter [facility] [address] [address] Donnie Centeno MD Discharge Disposition: Home or Self Care 02/23/2024 External Device Data STL ABSTRACTION Provider, Abstract 02/22/2024 8:51 AM MEAT LOINER - 02/22/2024 11:59 PM MEAT LOINER Hospital Encounter [facility] Services [place] [address] [place] [address] Jania Bhat NP Discharge Disposition: Home or Self Care 02/22/2024 8:45 AM MEAT LOINER - 02/22/2024 11:59 PM MEAT LOINER Hospital Encounter [facility] Services [facility] [address] [place] [address] Donnie Centeno MD Discharge Disposition: Home or Self Care from Last 3 Months Immunizations Immunization Administration Dates Next Due (ADACEL/BOOSTRIX)(10 YR UP) TDAP VACCINE, 0.5ML, IM 03/25/2013 (PNEUMOVAX 23)(50 YRS UP) PN EUMOCOCCAL POLYSACCHARIDE (PPV23) 0.5 ML, IM 04/18/2024,10/17/2019 (PREVNAR 13)(6 WKS UP) PNEUM OCOCCAL CONJUGATE (PCV13) 0.5 ML, IM 08/19/2019 (TDVAX)(7 YRS UP) TETANUS AN D DIPHTHERIA TOXOIDS, ADSORBED (2 LF OF TETANUS TOXOID AND 2 LF OF DIPHTHERIA TOXOID), 0.5ML (PF), IM 02/25/2006,04/16/2003 INFLUENZA VACCINE QUADRIVALE NT 3 YR UP PF IM 01/21/2016 INFLUENZA VACCINE QUADRIVALE NT 6 MOS UP IM 12/08/2018,01/15/2018 INFLUENZA VACCINE QUADRIVALE NT 6 MOS UP PF IM 01/24/2020 Influenza Seasonal Unspecifi ed Formulation IM 01/26/2017,01/05/2013,01/07/2012,12/14,12/14/2009,12/14/2008 Influenza Vaccine Quad Split 3+ Yrs Im 5,01/17/2014 Family History Medical History Relation Name Comments Depression Brother 02/2012 Heart Disease Brother 02/2012 [place], COPD - 1st [place] age 59 Hypertension Brother 02/2012 Other Brother 02/2012 COPD - smoker Healthy Daughter Amber West ulcerative co litis Heart Attack Father Sahil Claudia Heart Disease Father Sahil Claudia Heart Surgery Father Sahil Claudia High Cholesterol Father Sahil Claudia Hypertension Father Sahil Claudia Other Father Sahil Claudia copd Heart Disease Mother Shubert Claudia Hypertension Mother Rhonda Taylor Kidney Disease Mother Shubert Claudia Other Mother Rhonda Taylor Respiratory Disease Mother Rhonda Taylor Stroke Mother Rhonda Taylor Depression Sister Xiomy Fair Healthy Sister Xiomy Fair Heart Disease Sister Xiomy Fair High Cholesterol Sister Xiomy Fair Hypertension Sister Xiomy Fair Osteoporosis Sister Xiomy Fair Other Sister Xiomy Fair Respiratory Disease Sister Xiomy Fair Healthy Son Brando Wei Breast Cancer Neg Hx Cancer Neg Hx Colon Cancer Neg Hx Ovarian Cancer Neg Hx Relation Name Status Comments Brother 02/2012 Daughter Amber West Alive Father Sahil Taylor Maternal Grandfather Maternal Grandmother Mother Rhonda Taylor Alive Paternal Grandfather Paternal Grandmother Sister Xiomy Fair Alive Son Brando Wei Alive Social History Tobacco Use Types Packs/Day Years Used Date Smoking Tobacco: Never Smokeless Tobacco: Never Tobacco Cessation:Counseling Given: Not Answered Alcohol Use Standard Drinks/Week Comments Not Currently 0 (1 standard drink = 0.6 oz pur e alcohol) Comments No Sex and Gender Information Value Date Recorded Sex Assigned at Not on file Legal Sex Female 5:30 AM MEAT LOINER Gender Identity Not on file Sexual Orientation Not on file Occupation Industry Job Start Date Job End Date Not on file Not on file Not on file Not on file Last Filed Vital Signs Vital Sign Reading Time Taken Comments Blood Pressure 120/80 05/03/2024 10:09 AM MEAT LOINER Pulse 72 05/03/2024 10:09 AM MEAT LOINER Temperature 36.5 C (97.7 F) 02/23/2020 9:57 AM MEAT LOINER Respiratory Rate 18 03/22/2024 9:59 AM MEAT LOINER Oxygen Saturation 98% 05/03/2024 10:09 AM MEAT LOINER Inhaled Oxygen Concentration - - Weight 67.6 kg (149 lb) 05/03/2024 10:09 AM MEAT LOINER Height 154.9 cm (5' 1 ) 03/10/2024 11:46 AM MEAT LOINER Body Mass Index 28.15 03/10/2024 11:46 AM MEAT LOINER Plan of Treatment Upcoming Encounters Date Type Department Care Team (Late st Contact Info) Description 09/08/2024 12:00 PM CDT Office Visit [facility] [address] [place] [address] Randal Cooley MD [address] [place] [address] [address] [place] [address] 10/27/2024 10:00 AM CDT Office Visit [facility] [address] [place] [address] Randal Cooley MD [address] [facility] [address] [place] [address] 10/28/2024 9:30 AM CDT Office Visit [facility] [address] [facility] [address] [place] [address] [place] [address] [facility] [address] [place] [address] Health Maintenance Due Date Last Done Comments ZOSTER VACCINE (1 of 2) 1977 FIT-DNA Q 3 years 12/26/2003 Flex Sig/CT Colonography Q 5 years 12/26/2003 Pre-Diabetes and Diabetes Screening 04/29/2011 04/29/2008 FIT/FOBT Q 1 year 12/08/2017 12/08/2016 RSV VACCINE (60+ or ) (1 - Risk 60-74 years 1-dose series) 2018 DTAP/TDAP/TD VACCINES (2 - T d or Tdap) 03/25/2023 03/25/2013, 02/25/2006, 04/16/2003 BREAST CANCER SCREENING 04/28/2023 04/28/19 23, 03/04/2019, 02/24/2018, Additional history exists INFLUENZA VACCINE (#1) 2023 3, 12/17/2020, 01/24/2020, Additional history exists OSTEOPOROSIS SCREENING 12/26/2023 COLORECTAL SCREENING 01/24/2032 01/23/2022, 01/23/2022, 09/08/2018, Additional history exists Colorectal Cancer Screening 01/24/2032 PNEUMOCOCCAL VACCINE 50+ YEARS Completed 0 04/18/2024, 10/17/2019, 08/19/2019 Medical Devices Implanted Type Area Polysomnography Tech Device Identifier Shelf Expiration Date Model / Serial / Lot Mesh Uhs Med Uhsm6 - [id number] Implanted:Qty : 1 on 08/06/2016 by Naima Guadarrama MD at [facility] Mesh Right: Abdomen [employer] [id number] 11/13/2017 [facility] / / [id number] Stent Procedures Procedure Name Priority Date/Time Associated Diagnosis Comments POC URINALYSIS DIPSTICK AUTOMATED Routine 04/29/2024 11:33 AM MEAT LOINER Gross hematuria XR FLUORO NEEDLE GUIDANCE SPINE Routine 03/22/2024 9:44 AM MEAT LOINER XR FLUORO NEEDLE GUIDANCE SPINE Routine 03/07/2024 11:01 AM MEAT LOINER XR FLUORO NEEDLE GUIDANCE SPINE Routine 02/22/2024 9:18 AM MEAT LOINER MAMMO SCREEN BILAT W OR WO CAD Routine 04/28/2022 COLONOSCOPY REPORT 09/08/2018 7: 40 AM CDT OCCULT BLOOD IMMUNOASSAY, COLORECTAL SCREEN Routine 12/08/2016 8:58 PM CDT Chronic anemia GLUCOSE FASTING Routine 04/29/2008 8:10 AM MEAT LOINER Lipid Screening from Last 3 Months or Most Recently Relevant to Health Maintenance Results * (ABNORMAL) POC URINALYSIS DIPSTICK AUTOMATED (04/29/2024 11:33 AM MEAT LOINER) COLOR UA POC Yellow Pale to Dark Yellow [facility] CLARITY UA POC Clear Clear, Other [facility] GLUCOSE UA POC Negative Negative, Normal [facility] BILIRUBIN UA POC Negative Negative [facility] KETONES UA POC Negative Negative [facility] SPECIFIC GRAVITY UA POC <=1.005 1.000 - 1.030 [facility] BLOOD UA POC Negative Negative [facility] PH UA POC 6.0 5.0 - 8.0 [facility] PROTEIN UA POC Negative Negative [facility] UROBILINOGEN UA POC 0.2 <2.0 mg/dL [facility] NITRITE UA POC Negative Negative [facility] LEUKOCYTE ESTERASE UA POC 1+(A) Negative [facility] KIT LOT NUMBER POC [phone] [facility] KIT EXP DATE POC 11/13/2024 [facility] Urine 04/29/2024 11:3 3 AM MEAT LOINER us Frankie Haas MD POINT OF CARE TESTING Fin al Result [facility] CLIA# [id number] [facility] [address] [place] [address] * XR FLUORO NEEDLE GUIDANCE SPINE (03/22/2024 9:44 AM MEAT LOINER) Only the most recent of3 resultswithin the time period is included. Narrative [facility] - 03/22/2024 9:44 AM MEAT LOINER Order information only. Exam was auto-finalized. us Jania Bhat NP DIAGNOSTIC IMAGING ORDERABL ES Final Result Performing Organization Address City/[facility] Co de Phone Number [facility] CLIA# [id number] [facility] [address] [place] [address] * MAMMO SCREEN BILAT W OR WO CAD (04/28/2022) Anatomical Region Laterality Modality Breast Bilateral Other us Garo Chandler MD MAMMO ORDERABLES Edited Res ult - Final * COLONOSCOPY REPORT (09/08/2018 7:40 AM CDT) Narrative Procedure Note Felix Webber MD - 09/08/2018 7:39 AM CDT [facility] Endoscopy Patient Name: Ely Wei Procedure Date: 09/08/2018 Date of : 1960 Admit Type: Outpatient Attending MD: Felix Webber MD Procedure: Colonoscopy Indications: Screening for colorectal malignant neoplasm Providers: Felix Webber MD Referring MD: Jina Banda MD Medicines: Propofol per Anesthesia Complications: No immediate complications. Procedure: Informed consent was obtained for the procedure, including moderate sedation after risks were discussed. Based on the pre-procedure assessment, including review of the patient's medical history, medications, allergies, and review of systems, the patient was deemed to be an appropriate candidate for sedation. A timeout was performed. Continuous ECG monitoring, pulse oximetry, blood pressure monitoring, and direct observation were performed. The Colonoscope was introduced through the anus and advanced to the terminal ileum, with identification of the appendiceal orifice and IC valve. The colonoscopy was performed without difficulty. The patient tolerated the procedure well. The quality of the bowel preparation was good. Estimated Blood Loss: Estimated blood loss: none. Findings: Internal hemorrhoids were found during retroflexion. The hemorrhoids were small. Normal mucosa was found in the entire colon. Biopsies were taken with a cold forceps for histology. The terminal ileum appeared normal. Impression: - Internal hemorrhoids. - Normal mucosa in the entire examined colon. Biopsied. - The examined portion of the ileum was normal. Recommendation: - Await pathology results. - Repeat colonoscopy in 10 years for surveillance. Felix Webber MD 09/08/2018 7:39:40 AM This report has been signed electronically. Number of Addenda: [phone] [facility]; [place] [address] Felix Webber MD GI PROCEDURE ORDERABLES Final Re sult * OCCULT BLOOD IMMUNOASSAY, COLORECTAL SCREEN (12/08/2016 8:58 PM CDT) OCCULT BLOOD, STOOL Negative Negative 12/09/2016 10:07 PM CDT [facility] Stool STOOL SPECIMEN / Unknown Collection / Unknown 12/08/2016 8:58 PM CDT 12/09/2016 8:59 PM CDT Jina Banda MD BODY FLUIDS AND STOOLS Africa l Result [facility] CLIA# [id number] [address] [place] [address] * GLUCOSE FASTING (04/29/2008 8:10 AM MEAT LOINER) GLUCOSE FASTING 88 65 - 99 mg/dL [facility] Blood specimen (specimen) 04/29/2008 8:10 AM MEAT LOINER 04/29/2008 2:45 PM MEAT LOINER Jina Banda MD CHEMISTRY ORDERABLES Final Result INTERFACE SYSTEM Refer to clinic/hospital department [facility] CLIA# [id number] [address] [place] [address] from Last 3 Months or Most Recently Relevant to Health [place] [address] MEDICARE PART A AND B [facility] MEDICARE SUPPLEMENT RX [employer] RX Member Subscriber Plan / Payer (Ef fective 2023-Present) Name:Ely Wei Relation to Subscriber:Self Name:Ely Wei Payer ID:Not on file Group ID:[id number] Type:RX Medicare Part D Address: [address] [address] [employer] [employer] Medicare Part B Advance Directives For more information, please contact: [phone] * Full Code (Latest Code Status on File) Date Activated Date Inactivated Comments 02/23/2019 9:46 AM 02/23/2019 1:07 PM * Full Code Date Activated Date Inactivated Comments 09/08/2018 6:36 AM 09/08/2018 10:21 AM * Full Code Date Activated Date Inactivated Comments 09/06/2018 1:35 PM 09/06/2018 6:19 PM * Full Code Date Activated Date Inactivated Comments 10/15/2016 9:23 AM 10/15/2016 1:32 PM * Full Code Date Activated Date Inactivated Comments 10/15/2016 7:37 AM 10/15/2016 9:23 AM
--- OUTSIDE RECORDS SUMMARY | 2024-05-18 07:46 | XMS_ITS | Encounter Summary ---
Author Organization [facility] Address [address] [place] [address] Care Team Providers Care Flow Coordinator Name Role Phone Jina Banda MD Primary Care Provider Unav ailable Encounter Details Date Type Department Care Team (Late st Contact Info) Description 10/30/2000 Outpatient Historical Division of Neurology [address] [place] [address], [address] [address] Crow Coburn MD [address] [place] [address] [address] [place] [phone] Social History Tobacco Use Types Packs/Day Years Used Date Smoking Tobacco: Never Assessed Comments Unknown Sex and Gender Information Value Date Recorded Sex Assigned at Not on file Legal Sex Female 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 Gender Identity Not on file Sexual Orientation Not on file documented as of this encounter Plan of Treatment Upcoming Encounters Date Type Department Care Team (Late Contact Info) Description 09/08/2024 12:00 PM CDT Office Visit [facility] Heart [facility] Vascular At [address] [place] [address] Randal Cooley MD [address] [place] [address] [address] [place] [address] 10/27/2024 10:00 AM CDT Office Visit [facility] At [address] [place] [address] Randal Cooley MD [address] [place] [address] [address] [place] [address] 10/28/2024 9:30 AM CDT Office Visit [facility] Urology [facility] [address] [facility] [address] [place] [address] [place] [address] [facility] [address] [place] [address] documented as of this encounter Visit Diagnoses Not on filedocumented in this encounter Additional Health Concerns Infection Onset Date Last Indicated Resolved Time R/O COVID-19 11/08/2019 11/08/2019 11/11/2019 12:3 1 AM CDT R/O COVID-19 02/01/2020 02/01/2020 02/03/2020 2:00 AM MACHINE VENEER REPAIRER documented as of this encounter Care Teams Flow Coordinator Relationship Specialty Start Date End Date Jina Banda MD PCP - General Internal Medicine 06/20/16 12/03/21 documented as of this encounter
--- OUTSIDE RECORDS SUMMARY | 2024-05-18 07:46 | XMS_ITS | Encounter Summary ---
Author Organization [facility] Address [address] [place] [address] Phone Care Team Providers Care Project Management Intern Name Role Phone Mervin Jay DO Primary Care Provider [phone] Encounter Details Date Type Department Care Team (Late st Contact Info) Description 02/23/2019 Orders Only [facility] Scanning, Provider Social History Tobacco Use Types Packs/Day Years Used Date Smoking Tobacco: Never Assessed Comments Unknown Sex and Gender Information Value Date Recorded Sex Assigned at Not on file Legal Sex Female 6:45 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 Gender Identity Not on file Sexual Orientation Not on file documented as of this encounter Plan of Treatment Not on file documented as of this encounter Procedures Procedure Name Priority Date/Time Associated Diagnosis Comments SCAN - LABS 02/23/2019 documented in this encounter Results * SCAN - LABS (02/23/2019) us Provider Scanning Final Result documented in this encounter Visit Diagnoses Not on filedocumented in this encounter Care Teams Project Management Intern Relationship Specialty Start Date End Date Mervin Jay DO PCP - General Internal Medicine 10/21/21 documented as of this encounter
--- OUTSIDE RECORDS SUMMARY | 2024-05-18 07:46 | XMS_ITS | Patient Health Record ---
Author Organization [employer] Address [address] [facility] [address] [place] [address] Care Team Providers Care Freight Sales Broker Name Role Phone Mervin Jay DO Primary Care Provider Freda brizuela Allergies Allergen (clinical drug ingredient) Drug/Non Drug Allergy documented on EMR Reaction Allergy Type Onset Date Status Pneumonial 23- Isis P s Vaccine (uncoded) Unknown Allergy Active Substance with sulfonamide structure and antibacterial mechanism of action (substance) Sulfa (uncoded) Unknown Allergy Active amoxicillin Amoxicillin Unknown Drug Allergy Act oliver Doxycycline Calcium Unknown Drug Allergy Active Hydrocodone Bitartrate Unknown Drug Allergy Active morphine Morphine Sulfate Unknown Drug Allergy Active Penicillin G Benzathine Unknown Drug Allergy Active codeine Codeine Unknown Drug Allergy Active Reason For Referral No Information Medications Medication SIG (Take, Route, Frequency, Duration) Notes Start Date End Date Status OTC/Vitamins Vitamin D3, Vitamin B12, ASA, Estrogen Cream Active Atorvastatin Calcium Active Levothyroxine Sodium Active Escitalopram Oxalate Active ALPRAZolam Active Pepto-Bismol Active Nitroglycerin Active Nitrofurantoin Activ e Metoprolol Tartrate Active Immunizations Vaccine Route Administration Date Status Comme nts Influenza Vaccination Unknown 12/17/2020 Administered Social History Tobacco Use: Social History Observation Description Date Details (start date - stop date) Never Smoker NA - NA Tobacco Use/Smoking Question Answer Notes Are you a nonsmoker Problems Problem Type SNOMED Code ICD Code Onset Dates Problem Status W/U Status Risk Notes Problem 08662717 Hemorrhoids, unspecified hemorrhoid type (K64.9) Active confirmed She notes feeling 1 external nonbleeding hemorrhoid at this time in which she has tried topical hydrocortisone [id number] with mild improvement as well as an old prescription of a hydrocortisone suppository. Problem 80523035 Diarrhea (R19.7) Active confirmed She has known microscopic colitis that has not responded to budesonide or colestid. She is partially improved on pepto. Previous biopsies for celiac were negative. Explained that we need to consider other etiologies besides microscopic colitis. Therefore, I have scheduled her for SIBO breath testing. If this is negative, consider repeat EGD and colonoscopy given her daughter has UC Problem [id number] Diarrhea, unspecified type (R19.7) Active confirmed She has had an onset of loose and watery stools up to 10 episodes daily and to nocturnal episodes for the last 3 weeks. She noticed an exacerbation after receiving her Covid booster 4 weeks ago. Symptoms are associated with intermittent lower abdominal cramping prior to bowel movements. It is of note she has had a history of lymphocytic colitis and has failed budesonide and colestipol treatment in the past. She has no alarming symptoms at this time and denies fever, shortness of breath, chest pain, hematochezia, steatorrhea, weight loss, or loss of appetite. Differentials include microscopic colitis, infectious colitis, IBS, food intolerance, medication intolerance, and others. Problem 109630159 Abdominal cramping (R10.9) Active confirmed Problem 189033018 Intestinal malabsorption, unspecified type (K90.9) Active confirmed Problem 362833866 Microscopic colitis (K52.839) Active confirmed She can continu e Pepto as needded for now Plan Of Treatment Pending Test Test Name Order Date SIBO Breath Test 06/18/2021 Initiate SIBO 05/28/2021 Insurance Providers Payer Name Payer Address Payer Phone Subscriber Number Group Number Insured Name Patient Relationship to Insured Coverage Start Date Coverage End Date Medicare E2 [address] [address] [place] [address] [phone] [id number] Ely Wei Self - patient is the insured [employer] Medicare Supplement E2 [address] [place] [address] [id number] Ely Wei Self - patient is the insured Medical (General) History Medical History History ICD Code IBS Microscopic Coltiis Hemorrhoids Anemia Hypothyroidism Depression Heart Disease/Stents Migraines Hypertension Surgical History Surgery Date(Month/Year) Colonoscopy (outside provider) 07/2018 EGD (outside provider) 02/2019 Hernia repair x2 Stent placement Skin lesion removal Hospitalization History Reason Date(Month/Year) Hernia COVID Pneumonia Childbirth Dehydration
--- OUTSIDE RECORDS SUMMARY | 2024-05-18 07:46 | XMS_ITS | Encounter Summary ---
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 Gender Identity Not on file Sexual Orientation Not on file documented as of this encounter Plan of Treatment Not on file documented as of this encounter Procedures Procedure Name Priority Date/Time Associated Diagnosis Comments SCAN - LABS 10/17/2019 documented in this encounter Results * SCAN - LABS (10/17/2019) us Provider Scanning Final Result documented in this encounter Visit Diagnoses Not on filedocumented in this encounter Care Teams Airport Maintenance Chief Relationship Specialty Start Date End Date Mervin Jay DO PCP - General Internal Medicine 10/21/21 documented as of this encounter
--- OUTSIDE RECORDS SUMMARY | 2024-05-18 07:46 | XMS_ITS | Encounter Summary ---
Author Organization [facility] Address [address] [place] [address] Care Team Providers Care Exhaust Emissions Inspector Name Role Phone Jina Banda MD Primary Care Provider Unav ailable Encounter Details Date Type Department Care Team (Late st Contact Info) Description 01/11/2001 Outpatient Historical [facility] Internal Medicine - [facility] [id number] [place] [address] [address] [place] [address] Jina Banda MD NO ADDRESS ON FILE Social History Tobacco Use Types Packs/Day Years Used Date Smoking Tobacco: Never Assessed Comments Unknown Sex and Gender Information Value Date Recorded Sex Assigned at Not on file 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 Gender Identity Not on file Sexual Orientation Not on file documented as of this encounter Plan of Treatment Upcoming Encounters Date Type Department Care Team (Late st Contact Info) Description 09/08/2024 12:00 PM CDT Office Visit [facility] Heart and Vascular At [address] [place] [address] Randal Cooley MD [address] [place] [address] [address] [place] [address] 10/27/2024 10:00 AM CDT Office Visit [facility] Heart and Vascular At [address] [place] [address] Randal Cooley MD [address] [place] [address] [address] [place] [address] 10/28/2024 9:30 AM CDT Office Visit [facility] Urology [facility] [address] [facility] [address] [place] [address] [place] [address] [facility] [address] [facility] [address] [place] [address] documented as of this encounter Visit Diagnoses Not on filedocumented in this encounter Additional Health Concerns Infection Onset Date Last Indicated Resolved Time R/O COVID-19 11/08/2019 11/08/2019 11/11/2019 12:3 1 AM CDT R/O COVID-19 02/01/2020 02/01/2020 02/03/2020 2:00 AM SAIL CUTTER documented as of this encounter Care Teams Exhaust Emissions Inspector Relationship Specialty Start Date End Date Jina Banda MD PCP - General Internal Medicine 06/20/16 12/03/21 documented as of this encounter
--- OUTSIDE RECORDS SUMMARY | 2024-05-18 07:46 | XMS_ITS | Encounter Summary ---
Author Organization [facility] Address [address] [place] [address] Care Team Providers Care Tank Car Cleaner Name Role Phone Jina Banda MD Primary Care Provider Unav ailable Encounter Details Date Type Department Care Team (Late st Contact Info) Description 03/14/2015 Chart Note [facility] [employer] [address] [place] [address] Briseida Solano, Physical Therapist Social History Tobacco Use Types Packs/Day Years Used Date Smoking Tobacco: Never Smokeless Tobacco: Never Alcohol Use Standard Drinks/Week Comments No 0 (1 standard drink = 0.6 oz pur e alcohol) Comments No Sex and Gender Information Value Date Recorded Sex Assigned at Not on file Legal Sex Female 5:30 AM [place] UPHOLSTERER Gender Identity Not on file Sexual Orientation Not on file Occupation Industry Job Start Date Job End Date Not on file Not on file Not on file Not on file documented as of this encounter Progress Notes * Briseida Solano, Physical Therapist - 03/14/2015 6:49 PM CST Images from the original note were not included. Physical Therapy Discharge Summary Patient: Ely Wie Date: 03/14/2015 Date of : 1960 Referring Provider: Jina Banda MD?? Diagnosis: (L) hip pain, hip bursitis? Ely Wei was seen from 01/19/2015 to 02/23/2015 for a total of 6 visits. This patient did not return for further therapy visits following the last session noted above, therefore a complete re-evaluation of status was not completed. Treatments consisted of: home exercise program, manual therapy, neuromuscular re-education, pain management, patient/family education, plan of care, proprioceptive exercises, posture/body mechanics instruction, range of motion, segmental spinal stabilization, stretching and strengthening therapeutic exercises Therapeutic Exercise to increase strength, ROM, flexibility, stablization. Manual Treatments - soft/deep tissue massage Modalities - Therapist Discretion Objective Measurements: Refer to progress note dated 02/15/2015 Date and Last Pain Ratin02/23/201504/25 Home Exercise Program Last Updated On: Finalized 02/23/2015 Goals: STG's?? (Time Frame: 3?? weeks) 1. Patient's lower abdominal stability to improve to IA/5 Sahrmann level in order to improve standing and sitting tolerance. met 2. Patient to present with no reproduction of (L) thigh pain upon therapist palpation of the iliopsoas in order to signify improved flexibility. Not met 3. Patient to be able to complete a full bridge in hooklying position without complaints of low back pain in order to improve tolerance to transitional movements/bed mobility. met 4. Patient's rectus length to improve to 120 degrees knee flexion in prone Aide position without complaints of back or hip pain. ongoing 5. Patient's hip abductor stability to improve by 1/3 of a muscle grade in order to assist with walking to resume regular cardio exercise program. ongoing LTG's?? (Time Frame: 8?? weeks) 1. 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 met 2. Patient to be able to tolerate sitting for a duration of 45 minutes in order to sit at desk. met 3. Patient's level of disability with LEFS to decrease to 60% in order to improved ability to participate in everyday activities. met 4.? Patient to be able to stand on the (L) LE in order to don/doff pants without exacerbation ofpain greater than 2/10. met Other: Upon speaking with patient through email, she explained she is able to complete all activities without pain. The patient discharged from therapy secondary to patient choice to discontinue therapy. Please contact me if you have any questions. Thank you for this referral. Briseida Solano, PT, DPT, OCS [place] License No.: [id number] [facility] [address] [place] [address] (phone) [phone] (fax) NG UPHOLSTERER documented in this encounter Plan of Treatment Upcoming Encounters Date Type Department Care Team (Late st Contact Info) Description 09/08/2024 12:00 PM CDT Office Visit [facility] Heart and Vascular At [address] [place] [address] Randal Cooley MD [address] [place] [address] [address] [place] [address] 10/27/2024 10:00 AM CDT Office Visit [facility] Heart and Vascular At [address] [place] [address] Randal Cooley MD [address] [place] [address] [address] [place] [address] 10/28/2024 9:30 AM CDT Office Visit [facility] Urology [facility] [address] [id number] [place] [address] [address] documented as of this encounter Visit Diagnoses Not on filedocumented in this encounter Additional Health Concerns Infection Onset Date Last Indicated Resolved Time R/O COVID-19 11/08/2019 11/08/2019 11/11/2019 12:3 1 AM CDT R/O COVID-19 02/01/2020 02/01/2020 02/03/2020 2:00 AM [place] UPHOLSTERER documented as of this encounter Care Teams Tank Car Cleaner Relationship Specialty Start Date End Date Jina Banda MD PCP - General Internal Medicine 06/20/16 12/03/21 documented as of this encounter
--- OUTSIDE RECORDS SUMMARY | 2024-05-18 07:46 | XMS_ITS | Continuity of Care Document ---
Author Organization [facility] Address [address] [place] [address] Phone Care Team Providers Care Investigator Internal Revenue Name Role Phone Niharika Tomlinson OD Unavailable [...] by physician Disp 10 ml - Active ofloxacin 0.3 % eye drops instill i gt to operative eye QID x 9 days starting 2 days before surgery Disp 5ml - No Longer Active ketorolac 0.4 % eye drops instill [...] Diagnoses Date Provider Providers Copied on Encounter [facility], [address] [place] [address], [id number] , [place] tel:[phone] [facility] Post-op cataract surgery (chief complaint) PresbyopiaPresenc e of intraocular lensOther specified postprocedural statesCrystalline deposits in vitreous body, left eyeHypermetropia, bilateralRegular astigmatism, bilateral Mar-2 0-202 4 Davi Bundy. [address] [place] [address], [id number], [place]. tel:[phone] Referring Provider: Niharika Martinez, [address] [place] [address], [id number]. tel:[phone] [facility], [address] [place] [address], [id number] , [place] tel:[phone] [facility] Post-op cataract surgery (chief complaint) Cataract extraction status, right eye Mar-0 5-202 4 Davi Bundy. [address] [place] [address], [id number], [place]. [phone] Referring Provider: Niharika Martinez, [address] [place] [address], [address]. 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 [address] [place] [address], [id number], [place]. tel:[phone] Referring Provider: Volodymyr Vicente, [address] [place] [address], [id number]. tel:[phone] [facility], [address] [place] [address], [id number] , [place] tel:[phone] [facility] Combined forms of age-related cataract, right eye Mar-0 3-202 4 Eladio Helm. [address] [place] [address], [id number], [place]. tel:[phone] [facility], [address] [place] [address], [id number] , [place] tel:[phone] [facility] Post-op cataract surgery (chief complaint) Cataract extraction status, left eye 4 Radha Petit. [address] [place] [address], [id number], [place]. tel:[phone] Referring Provider: Damaso Alberto, [address] [place] [address], [address]. tel:[phone] [facility], [address] [place] [address], [id number] , [place] tel:[phone] [facility] No Information 4 Eladio Helm. [address] [place] [address], [id number], [place]. tel:[phone] Referring Provider: Volodymyr Vicente, [address] [place] [address], [id number]. tel:[phone] [facility], [address] [place] [address], [id number] , [place] tel:[phone] [facility] No Information 4 Eladio Helm. [address] [place] [address], [id number], [place]. tel:[phone] [facility], [address] [place] [address], [id number] , [place] tel:[phone] [facility] cataract evaluation (chief complaint) Regular astigmatism, bilateralPresbyop iaCrystalline deposits in vitreous body, left eye 4 Eladio Helm. [address] [place] [address], [id number], [place]. tel:[phone] Other Provider: Radha brito, [facility] [address] [place], [address]. tel:[phone] ring Provider: Brando Hernandez, [address] [place], [address]. tel:[phone] Family History Family Member Type Diagnosis Age [...] disease Payers Payer name Insurance type Covered constitution party ID Authoriza tion(s) No Information Social History [...]
--- OUTSIDE RECORDS SUMMARY | 2024-05-18 07:46 | XMS_ITS | Encounter Summary ---
Author Organization [facility] Address [address] [facility] Attn: [place] [address] Care Team Providers Care Director Account Management Name Role Phone Jina Banda MD Primary Care Provider Unav ailable Encounter Details Date Type Department Care Team (Late st Contact Info) Description 05/13/1990 Outpatient Historical Sahil Tsang MD [address] [place] [address] Social History Tobacco Use Types Packs/Day Years Used Date Smoking Tobacco: Never Assessed Comments Unknown Sex and Gender Information Value Date Recorded Sex Assigned at Not on file 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 Gender Identity Not on file Sexual Orientation Not on file documented as of this encounter Plan of Treatment Upcoming Encounters Date Type Department Care Team (Late st Contact Info) Description 09/08/2024 12:00 PM CDT Office Visit [facility] Heart and Vascular At [address] [place] [address] Randal Cooley MD [address] [place] [address] [address] [place] [address] 10/27/2024 10:00 AM CDT Office Visit [facility] Heart and Vascular At [address] [place] [address] Randal Cooley MD [address] [place] [address] [address] [place] [address] 10/28/2024 9:30 AM CDT Office Visit [facility] Urology [facility] [address] [facility] [address] [place] [address] [place] [address] [facility] [address] [facility] [address] [place] [address] documented as of this encounter Visit Diagnoses Not on filedocumented in this encounter Additional Health Concerns Infection Onset Date Last Indicated Resolved Time R/O COVID-19 11/08/2019 11/08/2019 11/11/2019 12:3 1 AM CDT R/O COVID-19 02/01/2020 02/01/2020 02/03/2020 2:00 AM PRECISION FARMING SPECIALIST documented as of this encounter Care Teams Director Account Management Relationship Specialty Start Date End Date Jina Banda MD PCP - General Internal Medicine 06/20/16 12/03/21 documented as of this encounter
--- OUTSIDE RECORDS SUMMARY | 2024-05-18 07:46 | XMS_ITS | Encounter Summary ---
Author Organization [facility] Address [address] [place] [address] Care Team Providers Care Band Teacher Name Role Phone Jina Banda MD Primary Care Provider Unav ailable Encounter Details Date Type Department Care Team (Late st Contact Info) Description 09/05/1998 Outpatient Historical [facility] Internal Medicine - [facility] [id number] [place] [address] [address] [place] [address] Jina Banda MD NO ADDRESS ON FILE Social History Tobacco Use Types Packs/Day Years Used Date Smoking Tobacco: Never Assessed Comments Unknown Sex and Gender Information Value Date Recorded Sex Assigned at Not on file Legal Sex Female 5:30 AM CANDY COUNTER CLERK Gender Identity Not on file Sexual Orientation Not on file documented as of this encounter Plan of Treatment Upcoming Encounters Date Type Department Care Team (Late st Contact Info) Description 09/08/2024 12:00 PM CDT Office Visit [facility] Heart and Vascular At [address] [place] [address] Randal Cooley MD [address] [place] [address] [address] [place] [address] 10/27/2024 10:00 AM CDT Office Visit [facility] Heart and Vascular At [address] [place] [address] Randal Cooley MD [address] [place] [address] [address] [place] [address] 10/28/2024 9:30 AM CDT Office Visit [facility] Urology [facility] [address] [facility] [address] [place] [address] [place] [address] [facility] [address] [facility] [address] [place] [address] documented as of this encounter Visit Diagnoses Not on filedocumented in this encounter Additional Health Concerns Infection Onset Date Last Indicated Resolved Time R/O COVID-19 11/08/2019 11/08/2019 11/11/2019 12:3 1 AM CDT R/O COVID-19 02/01/2020 02/01/2020 02/03/2020 2:00 AM CANDY COUNTER CLERK documented as of this encounter Care Teams Band Teacher Relationship Specialty Start Date End Date Jina Banda MD PCP - General Internal Medicine 06/20/16 12/03/21 documented as of this encounter
--- OUTSIDE RECORDS SUMMARY | 2024-05-18 07:46 | XMS_ITS | Encounter Summary ---
Author Organization [facility] Address [address] [place] [address] Care Team Providers Care Winder Fixer Name Role Phone Unavailable Primary Care Provider Unavailabl e Encounter Details Date Type Department Care Team (Late st Contact Info) Description 02/12/2023 Telephone [facility] [employer] [facility] [address] [place] [address] Sarah Rai RN Social History Tobacco Use Types Packs/Day Years Used Date Smoking Tobacco: Never Smokeless Tobacco: Never Alcohol Use Standard Drinks/Week Comments Not Currently 0 (1 standard drink = 0.6 oz pur e alcohol) Comments No Sex and Gender Information Value Date Recorded Sex Assigned at Not on file 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 LVM to return call UNICATION ENGINEER documented in this encounter Plan of Treatment Upcoming Encounters Date Type Department Care Team (Late st Contact Info) Description 09/08/2024 12:00 PM CDT Office Visit [facility] Heart and Vascular At [address] [place] [address] Randal Cooley MD [address] [place] [address] [address] [place] [address] 10/27/2024 10:00 AM CDT Office Visit [facility] Heart and Vascular At [address] [place] [address] Randal Cooley MD [address] [place] [address] [address] [place] [address] 10/28/2024 9:30 AM CDT Office Visit [facility] Urology [facility] [address] [facility] [address] [place] [address] [place] [address] [facility] [address] [facility] [address] [place] [address] documented as of this encounter Visit Diagnoses Not on filedocumented in this encounter
--- OUTSIDE RECORDS SUMMARY | 2024-05-18 07:47 | XMS_ITS | Continuity of Care Document ---
Author Organization [facility] Address [address] [address] Phone Care Team Providers Care Trash Truck Driver Name Role Phone Rafat Garces MD Unavailable [...] Diagnoses Date Provider Providers Copied on Encounter [facility], [address] [address], , [facility], tel:[phone] [facility] No Information 8 Dez Douglass. [address], , [id number] , [place]. tel: [phone] OFFICE/OUTPA TIENT VISIT EST [facility], [address] [place] [address], [facility], [phone] [facility] Body mass index (BMI) 28.0-28.9, adultBiceps tendinitis of right upper extremity 8 Dez Douglass. [address], , [id number] , [place]. tel: [phone] OFFICE/OUTPA TIENT VISIT EST [facility], [address] [place] [address], [address], tel:[phone] [facility] Rotator cuff tear arthropathy of right shoulderOther specific arthropathies, not elsewhere classified, right shoulder 0- 8 Avelino Fowler. [address] [place] [address], [id number] . tel: [phone] OFFICE/OUTPA TIENT VISIT EST [facility], [address] [place] [address], [address], [place] tel:[phone] [facility] Impingement syndrome of right shoulder - 8 Avelino Fowler. [address] [place] [address], [id number] . tel: [phone] OFFICE/OUTPA TIENT VISIT EST [facility], [address] [place] [address], [facility], tel:[phone] [facility] Right shoulder tendonitis 0 8 Avelino Fowler. [address] [place] [address], [id number] . tel: [phone] OFFICE/OUTPA TIENT VISIT EST [facility], [address] [place] [address], [address], [place] tel:[phone] [facility] Impingement syndrome of right shoulder Jun-0 8 Avelino Fowler. [address] [place] [address], [id number] . tel: [phone] OFFICE/OUTPA TIENT VISIT [facility], [address] [place] [address], [address], [place] tel:[phone] [facility] Bursitis of right shoulderBody mass index (BMI) 28.0-28.9, adultTrochanter ic bursitis of left hipOther enthesopathies, not elsewhere classified 7 Avelino Malcolm. [address] [place] [address], [id number] . tel: [phone] Referring Provider: Jina Joseph, [address] [address], [place], [address] . tel:[phone] OFFICE/OUTPA TIENT VISIT [facility], [address] [place] [address], [address], [place] tel:[phone] [facility] GANGLION CYST (chief complaint) Ganglion cyst 4 Darrel Jeffries. [address] [place] [address], [id number] . tel: [phone] OFFICE/OUTPA TIENT VISIT EST [facility], [address] [place] [address], [address], [place] tel:[phone] [facility] Medial epicondylitis of elbow 3 Avelino Fowler. [address] [place] [address], [id number] . tel: [phone] PREV VISIT EST AGE 40-64 [facility] [place], [address], , [address], [place] tel:[phone] [facility] annual visit (chief complaint) Well Woman / Routine Supercharger Mechanic/PapDysuria Nov-0 201 2 Carmen Liriano. [address], [place], [place], [id number] . tel: [phone] Family History Family Member Type Diagnosis Age At Onset Father Problem (finding) coronary arterioscleros is Father Problem (finding) Payers Payer name Insurance type Covered constitution party ID Authoriza tiabi(s) Blue Access Choice PPO E2 OT [id number] Social History Type Description Quantity Date Captured [...] as tolerated. Related to Right shoulder tendonitis Weight monitoring Related to Bod y mass index (BMI) 28.0-28.9, adult Activity as tolerated Related to Trochanteric bursitis of left hip Home exercise program Related to Trochanteric bursitis of left hip Apply ice as tolerated. Related to Trochanteric bursitis of left hip Assessments Type Assessment Date No Information Patient Care Teams Name Effective Dates (start - stop) Status Members No Information
--- OUTSIDE RECORDS SUMMARY | 2024-05-18 07:47 | XMS_ITS | Encounter Summary ---
Author Organization [facility] Address [address] [place] [address] Care Team Providers Care Tobacco Hanger Name Role Phone Jina Banda MD Primary Care Provider Unav ailable Encounter Details Date Type Department Care Team (Late st Contact Info) Description 04/25/2004 Outpatient Historical [facility] Internal Medicine - [facility] [id number] [place] [address] [address] [place] [address] Jina Banda MD NO ADDRESS ON FILE Social History Tobacco Use Types Packs/Day Years Used Date Smoking Tobacco: Never Assessed Comments Unknown Sex and Gender Information Value Date Recorded Sex Assigned at Not on file Legal Sex Female 5:30 AM SHELL MOLDER Gender Identity Not on file Sexual Orientation Not on file documented as of this encounter Plan of Treatment Upcoming Encounters Date Type Department Care Team (Late st Contact Info) Description 09/08/2024 12:00 PM CDT Office Visit [facility] Vascular At [address] [place] [address] Randal Cooley MD [address] [place] [address] [address] [place] [address] 10/27/2024 10:00 AM CDT Office Visit [facility] At [address] [place] [address] Randal Cooley MD [address] [place] [address] [address] [place] [address] 10/28/2024 9:30 AM CDT Office Visit [facility] Urology [facility] [address] [facility] [address] [place] [address] [place] [address] [facility] [address] [facility] [address] [place] [address] documented as of this encounter Visit Diagnoses Not on filedocumented in this encounter Additional Health Concerns Infection Onset Date Last Indicated Resolved Time R/O COVID-19 11/08/2019 11/08/2019 11/11/2019 12:3 1 AM CDT R/O COVID-19 02/01/2020 02/01/2020 02/03/2020 2:00 AM SHELL MOLDER documented as of this encounter Care Teams Tobacco Hanger Relationship Specialty Start Date End Date Jina Banda MD PCP - General Internal Medicine 06/20/16 12/03/21 documented as of this encounter
--- OUTSIDE RECORDS SUMMARY | 2024-05-18 07:47 | XMS_ITS | Encounter Summary ---
Author Organization [facility] Address [address] [place] [address] Care Team Providers Care Drilling Manager Name Role Phone Mervin Jay DO Primary Care Provider [phone] Encounter Details Date Type Department Care Team (Late st Contact Info) Description 09/26/2020 Lab Requisition [facility] [address] [facility] [place] [address] Jakob Marr MD [address] [place] [address] Social History Tobacco Use Types Packs/Day Years Used Date Smoking Tobacco: Never Smokeless Tobacco: Never Alcohol Use Standard Drinks/Week Comments No 0 (1 standard drink = 0.6 oz pur e alcohol) Sex and Gender Information Value Date Recorded Sex Assigned at Not on file Gender Identity Not on file Sexual Orientation Not on file documented as of this encounter Plan of Treatment Not on file documented as of this encounter Procedures Procedure Name Priority Date/Time Associated Diagnosis Comments DERMATOPATHOLOGY Routine 09/25/2020 12:0 0 AM CDT documented in this encounter Results * DERMATOPATHOLOGY (09/25/2020 12:00 AM CDT) Case Report Dermatopathology Report Case: [id number] Authorizing Provider: Jakob Marr MD Collected: 09/25/2020 12:00 AM Ordering Location: [facility] Received: 09/26/2020 01:47 PM Pathologist: Bonny Toure MD Specimen: Skin, left medial lund 1:17 PM CDT DERMATOPATHOLOGY LABORATORY Final Diagnosis Specimen A. SKIN, left medial lund: DERMATOFIBROMA, SUPERFICIAL ASPECT OF (D23.9) EPIDERMAL NECROSIS SUGGESTIVE OF EXCORIATION (L98.499) (see microscopic description) 1:17 PM CDT DERMATOPATHOLOGY LABORATORY Clinical History DF vs irritated nevus vs other 1 1:17 PM CDT DERMATOPATHOLOGY LABORATORY Gross Description Specimen A: Received is one formalin filled container labeled with the patient's name and designated left medial lund. The specimen consists of a shave biopsy measuring 7x5x2 mm. Jar 0. 1:17 PM CDT DERMATOPATHOLOGY LABORATORY Microscopic Description Specimen A. SKIN, left medial lund: There is epidermal hyperplasia. Within the dermis, there is the superficial aspect of fibrohistiocytic cells in haphazard array among coarse collagen bundles. The epidermis is focally necrotic and covered with a scale-crust. There is fibrin at the base. 1:17 PM CDT DERMATOPATHOLOGY LABORATORY Disclaimer An external and internal positive and negative controls are appropriate for the histochemical, immunohistochemical and immunofluorescence stain(s) in this case (if any), except where stated explicitly. The performance characteristics of the stain(s) cited in this report were developed and its performance characteristic determined by the Dermatopathology Laboratory at [facility], directed by Dr. Bruce Varghese. These tests need not be, and therefore are not, approved by the [place] Food and Drug Administration. The tests are used for clinical purposes. Billing Codes Specimen Charges Stain Charges 19058 1 1 1:17 PM CDT DERMATOPATHOLOGY LABORATORY Embedded Images 1:17 PM CDT DERMATOPATHOLOGY LABORATORY Pathology/Cytolog y TISSUE SPECIMEN FROM SKIN / Unknown 09/25/2020 09/26/2020 1:47 PM CDT Jakob Marr MD LAB - PATHOLOGY/CYTO LOGY ORDERABLES DERMATOPATHOLOGY LABORATORY [facility] - Department of Dermatology [facility] Medicine [address] [facility], 3rd Floor [address] [phone] documented in this encounter Visit Diagnoses Not on filedocumented in this encounter Care Teams Drilling Manager Relationship Specialty Start Date End Date Mervin Jay DO PCP - General 09/26/20 documented as of this encounter
--- OUTSIDE RECORDS SUMMARY | 2024-05-18 07:47 | XMS_ITS | Encounter Summary ---
Author Organization [facility] Address [address] [place] [address] Care Team Providers Care Lean Six Sigma Senior Specialist Name Role Phone Jina Banda MD Primary Care Provider Unav ailable Encounter Details Date Type Department Care Team (Late st Contact Info) Description 09/20/2008 Outpatient Historical [facility] Thelma Mota MD [address] [facility] [address] [place] [address] Diarrhea Social History Tobacco Use Types Packs/Day Years Used Date Smoking Tobacco: Never Alcohol Use Standard Drinks/Week Comments Not Asked 0 (1 standard drink = 0.6 oz pur e alcohol) Comments No Sex and Gender Information Value Date Recorded Sex Assigned at Not on file Legal Sex Female 5:30 AM FIELD MARKETING LEAD Gender Identity Not on file Sexual Orientation Not on file documented as of this encounter Plan of Treatment Upcoming Encounters Date Type Department Care Team (Late st Contact Info) Description 09/08/2024 12:00 PM CDT Office Visit [facility] At [address] [place] [address] Randal Cooley MD [address] [place] [address] 2014 [place] [address] 10/27/2024 10:00 AM CDT Office Visit [facility] At [address] [place] [address] Randal Cooley MD [address] [place] [address] 2014 [place] [address] 10/28/2024 9:30 AM CDT Office Visit [facility] Urology [facility] [address] [facility] [address] [place] [address] [place] [address] [facility] [address] [place] [address] documented as of this encounter Procedures Procedure Name Priority Date/Time Associated Diagnosis Comments GLIADIN ABS IGG/IGA Routine 09/20/2008 9 :35 AM CDT ENDOMYSIAL ANTIBODY SCREEN W/REFLX TITER Routine 09/20/2008 9:35 AM CDT TRANSGLUTAMINASE IGA ANTIBODY Routine 09/20/2008 9:35 AM CDT TRANSGLUTAMINASE IGG ANTIBODY Routine 09/20/2008 9:35 AM CDT IGA Routine 09/20/2008 9:35 AM CDT documented in this encounter Results * ENDOMISIAL ANTIBODY SCREEN W/REFLX TITER (09/20/2008 9:35 AM CDT) ENDOMYSIAL AB IGA Negative Negative [facility] Comment: Lab test performed by: [facility] [address] [place] [address] GIUESPPE RUTLEDGE MD 09/20/2008 9:35 AM CDT 09/20/2008 9:53 AM CDT Narrative INTERFACE SYSTEM - 09/23/2008 5:50 AM CDT cc: Eva Borden CNP us Thelma Haile MD CHEMISTRY ORDERABLES Final R esult INTERFACE SYSTEM Refer to clinic/hospital department [facility] CLIA# [id number] [address] [place] [address] * (ABNORMAL) IGA (09/20/2008 9:35 AM CDT) IGA <5.0(L) 87.0 - 421.0 mg/dL [facility] 09/20/2008 9:35 AM CDT 09/20/2008 9:53 AM CDT Narrative INTERFACE SYSTEM - 09/20/2008 10:51 AM CDT cc: Eva Borden CNP us Thelma Haile MD CHEMISTRY ORDERABLES Final R esult Performing Organization Address [facility] de Phone Number INTERFACE SYSTEM Refer to clinic/hospital department [facility] CLIA# [id number] [address] [place] [address] * GLIADIN ABS IGG/IGA (09/20/2008 9:35 AM CDT) GLIADIN IGA AB <3 <11 U/mL [facility] Comment: Reference Range: <11 U/mL Negative 11-17 U/mL Equivocal >17 U/mL Positive Lab test performed by: [facility]/[address] [address] GIUSEPPE RUTLEDGE MD GLIADIN IGG AB 7 <11 U/mL [facility] Comment: Reference Range: <11 U/mL Negative 11-17 U/mL Equivocal >17 U/mL Positive 09/20/2008 9:35 AM CDT 09/20/2008 9:53 AM CDT Narrative INTERFACE SYSTEM - 09/22/2008 4:34 PM CDT cc: Eva Borden CNP us Thelma Haile MD CHEMISTRY ORDERABLES Final R esult Performing Organization Address [facility] de Phone Number INTERFACE SYSTEM Refer to clinic/hospital department [facility] CLIA# [id number] [address] [address] * TRANSGLUTAMINASE IGG ANTIBODY (09/20/2008 9:35 AM CDT) TRANSGLUTAMINASE IGG AB <3 <7 U/mL [facility] Comment: Reference range: <7 U/mL Negative 7-10 U/mL Equivocal >10 U/mL Positive Lab test performed by: [facility] GIUSEPPE RUTLEDGE MD 09/20/2008 9:35 AM CDT 09/20/2008 9:53 AM CDT Narrative INTERFACE SYSTEM - 09/25/2008 7:17 PM CDT cc: Eva Borden CNP Thelma Haile MD CHEMISTRY ORDERABLES Final R esult Performing Organization Address [facility] Phone Number INTERFACE SYSTEM Refer to clinic/hospital department [facility] CLIA# [id number] [address] [place] [address] * TRANSGLUTAMINASE IGA ANTIBODY (09/20/2008 9:35 AM CDT) Pathologist [facility] TRANSGLUTAMINASE IGA AB <3 <5 U/mL [facility] Comment: Reference range: <5 U/mL Negative 5-8 U/mL Equivocal >8 U/mL Positive Lab test performed by: [facility] [id number] [place] [address] GIUSEPPE RUTLEDGE MD 09/20/2008 9:35 AM CDT 09/20/2008 9:53 AM CDT Narrative INTERFACE SYSTEM - 09/23/2008 8:24 PM CDT cc: Eva Borden CNP Thelma Haile MD CHEMISTRY ORDERABLES Final R esult Performing Organization Address [facility] Phone Number INTERFACE SYSTEM Refer to clinic/hospital department [facility] CLIA# [id number] [address] [place] [address] documented in this encounter Visit Diagnoses Diagnosis Diarrhea documented in this encounter Additional Health Concerns Infection Onset Date Last Indicated Resolved Time R/O COVID-19 11/08/2019 11/08/2019 11/11/2019 12:3 1 AM CDT R/O COVID-19 02/01/2020 02/01/2020 02/03/2020 2:00 AM FIELD MARKETING LEAD documented as of this encounter Care Teams Lean Six Sigma Senior Specialist Relationship Specialty Start Date End Date Jina Banda MD PCP - General Internal Medicine 06/20/16 12/03/21 documented as of this encounter
--- OUTSIDE RECORDS SUMMARY | 2024-05-18 07:47 | XMS_ITS | Encounter Summary ---
Author Organization [facility] Address [address] [place] [address] Care Team Providers Care Epic Kaleidoscope Analyst Name Role Phone Jina Banda MD Primary Care Provider Unav ailable Encounter Details Date Type Department Care Team (Late st Contact Info) Description 02/25/2006 Outpatient Historical [facility] Jina Banda MD NO ADDRESS ON FILE Pain in Joint, Pelvic Region and Thigh (Primary Dx) Social History Tobacco Use Types Packs/Day Years Used Date Smoking Tobacco: Never Assessed Comments Unknown Sex and Gender Information Value Date Recorded Sex Assigned at Not on file Legal Sex Female 5:30 AM TEST DEVELOPMENT ENGINEER Gender Identity Not on file Sexual Orientation Not on file documented as of this encounter Plan of Treatment Upcoming Encounters Date Type Department Care Team (Late st Contact Info) Description 09/08/2024 12:00 PM CDT Office Visit [facility] Heart and Vascular At [address] [place] [address] Randal Cooley MD [address] [place] [address] [address] [place] [address] 10/27/2024 10:00 AM CDT Office Visit [facility] Heart and Vascular At [address] [place] [address] Randal Cooley MD [address] [place] [address] 2014 [place] [address] 10/28/2024 9:30 AM CDT Office Visit [facility] Urology [facility] [address] [place] [address] [place] [address] [facility] [address] [place] [address] documented as of this encounter Visit Diagnoses Diagnosis Pain in joint, pelvic region and thigh- Primary documented in this encounter Additional Health Concerns Infection Onset Date Last Indicated Resolved Time R/O COVID-19 11/08/2019 11/08/2019 11/11/2019 12:3 1 AM CDT R/O COVID-19 02/01/2020 02/01/2020 02/03/2020 2:00 AM TEST DEVELOPMENT ENGINEER documented as of this encounter Care Teams Epic Kaleidoscope Analyst Relationship Specialty Start Date End Date Jina Banda MD PCP - General Internal Medicine 06/20/16 12/03/21 documented as of this encounter
--- OUTSIDE RECORDS SUMMARY | 2024-05-18 07:47 | XMS_ITS | Encounter Summary ---
Author Organization [facility] Address [address] [place] [address] Care Team Providers Care Wall Taper Name Role Phone Jina Banda MD Primary Care Provider Unav ailable Encounter Details Date Type Department Care Team (Late st Contact Info) Description 01/22/2006 Outpatient Historical HIS [facility] Charo Haynes [address] [place] [address] Other Screening Mammogram (Primary Dx) Social History Tobacco Use Types Packs/Day Years Used Date Smoking Tobacco: Never Assessed Comments Unknown Sex and Gender Information Value Date Recorded Sex Assigned at Not on file Legal Sex Female 5:30 AM OUTFITTER CABIN Gender Identity Not on file Sexual Orientation Not on file documented as of this encounter Plan of Treatment Upcoming Encounters Date Type Department Care Team (Late st Contact Info) Description 09/08/2024 12:00 PM CDT Office Visit [facility] Heart and Vascular At [address] [place] [address] Randal Cooley MD [address] [place] [address] [address] [place] [address] 10/27/2024 10:00 AM CDT Office Visit [facility] Heart and Vascular At [address] [place] [address] Randal Cooley MD [address] [place] [address] [address] [place] [address] 10/28/2024 9:30 AM CDT Office Visit [facility] Urology [facility] [address] [facility] [address] [place] [address] [place] [address] [facility] [address] [place] [address] documented as of this encounter Visit Diagnoses Diagnosis Other screening mammogram- Primary documented in this encounter Additional Health Concerns Infection Onset Date Last Indicated Resolved Time R/O COVID-19 11/08/2019 11/08/2019 11/11/2019 12:3 1 AM CDT R/O COVID-19 02/01/2020 02/01/2020 02/03/2020 2:00 AM OUTFITTER CABIN documented as of this encounter Care Teams Wall Taper Relationship Specialty Start Date End Date Jina Banda MD PCP - General Internal Medicine 06/20/16 12/03/21 documented as of this encounter
--- OUTSIDE RECORDS SUMMARY | 2024-05-18 07:47 | XMS_ITS | Encounter Summary ---
Author Organization [facility] Address [address] [place] [address] Care Team Providers Care Special Education Secretary Name Role Phone Jina Banda MD Primary Care Provider Unav ailable Encounter Details Date Type Department Care Team (Late st Contact Info) Description 10/14/2001 Outpatient Historical [facility] Internal Medicine - [facility] [id number] [place] [address] [address] [place] [address] Jina Banda MD NO ADDRESS ON FILE Social History Tobacco Use Types Packs/Day Years Used Date Smoking Tobacco: Never Assessed Comments Unknown Sex and Gender Information Value Date Recorded Sex Assigned at Not on file Legal Sex Female 5:30 AM CERAMIC PLATER Gender Identity Not on file Sexual Orientation Not on file documented as of this encounter Plan of Treatment Upcoming Encounters Date Type Department Care Team (Late st Contact Info) Description 09/08/2024 12:00 PM CDT Office Visit [facility] Heart and Vascular At [address] [place] [address] Randal Cooley MD [address] [place] [address] [address] [place] [address] 10/27/2024 10:00 AM CDT Office Visit [facility] Heart and Vascular At [address] [place] [address] Randal Cooley MD [address] [place] [address] [address] [place] [address] 10/28/2024 9:30 AM CDT Office Visit [facility] Urology [facility] [address] [facility] [address] [place] [address] [place] [address] [facility] [address] [facility] [address] [place] [address] documented as of this encounter Visit Diagnoses Not on filedocumented in this encounter Additional Health Concerns Infection Onset Date Last Indicated Resolved Time R/O COVID-19 11/08/2019 11/08/2019 11/11/2019 12:3 1 AM CDT R/O COVID-19 02/01/2020 02/01/2020 02/03/2020 2:00 AM CERAMIC PLATER documented as of this encounter Care Teams Special Education Secretary Relationship Specialty Start Date End Date Jina Banda MD PCP - General Internal Medicine 06/20/16 12/03/21 documented as of this encounter
--- OUTSIDE RECORDS SUMMARY | 2024-05-18 07:47 | XMS_ITS | Encounter Summary ---
Author Organization [facility] Address [address] [place] [address] Care Team Providers Care Safe And Vault Service Mechanic Name Role Phone Jina Banda MD Primary Care Provider Unav ailable Encounter Details Date Type Department Care Team (Late st Contact Info) Description 06/16/2006 Outpatient Historical [facility] Internal Medicine - [facility] [id number] [place] [address] [address] [place] [address] Jina Banda MD NO ADDRESS ON FILE Social History Tobacco Use Types Packs/Day Years Used Date Smoking Tobacco: Never Assessed Comments Unknown Sex and Gender Information Value Date Recorded Sex Assigned at Not on file Legal Sex Female 5:30 AM RN EXAMINER Gender Identity Not on file Sexual Orientation Not on file documented as of this encounter Last Filed Vital Signs Vital Sign Reading Time Taken Comments Blood Pressure 906/76 06/16/2006 8:00 AM CDT Pulse 80 06/16/2006 8:00 AM CDT Temperature - - Respiratory Rate - - Oxygen Saturation - - Inhaled Oxygen Concentration - - Weight 64.4 kg (142 lb) 06/16/2006 8:00 AM CDT Height - - Body Mass Index - - documented in this encounter Plan of Treatment Upcoming Encounters Date Type Department Care Team (Late st Contact Info) Description 09/08/2024 12:00 PM CDT Office Visit [facility] Heart and Vascular At [address] [place] [address] Randal Cooley MD [address] [place] [address] [address] [place] [address] 10/27/2024 10:00 AM CDT Office Visit [facility] Heart and Vascular At [facility] [address] [facility] [address] [place] [address] Randal Cooley MD [address] [facility] [address] [place] [address] 10/28/2024 9:30 AM CDT Office Visit [facility] Urology [facility] [address] [facility] [address] [place] [address] [place] [address] [facility] [address] [place] [address] documented as of this encounter Visit Diagnoses Not on filedocumented in this encounter Additional Health Concerns Infection Onset Date Last Indicated Resolved Time R/O COVID-19 11/08/2019 11/08/2019 11/11/2019 12:3 1 AM CDT R/O COVID-19 02/01/2020 02/01/2020 02/03/2020 2:00 AM RN EXAMINER documented as of this encounter Care Teams Safe And Vault Service Mechanic Relationship Specialty Start Date End Date Jina Banda MD PCP - General Internal Medicine 06/20/16 12/03/21 documented as of this encounter
--- OUTSIDE RECORDS SUMMARY | 2024-05-18 07:47 | XMS_ITS | Encounter Summary ---
Author Organization [facility] Address [address] [place] [address] Care Team Providers Care Senior Receptionist Name Role Phone Jina Banda MD Primary Care Provider Unav ailable Encounter Details Date Type Department Care Team (Late st Contact Info) Description 02/25/2006 Orders Only [facility] Internal Medicine - [facility] [address] [facility] [address] [place] [address] Jina Banda MD NO ADDRESS ON FILE Social History Tobacco Use Types Packs/Day Years Used Date Smoking Tobacco: Never Assessed Comments Unknown Sex and Gender Information Value Date Recorded Sex Assigned at Not on file Legal Sex Female 5:30 AM MID LEVEL PROJECT MANAGER Gender Identity Not on file Sexual Orientation Not on file documented as of this encounter Progress Notes * Jina Banda MD - 12/29/2007 2:57 AM CDT NURSE NAME: Nohemy Hernandez M INJECTIONS & IMMUNIZATIONS: . TETANUS AND DIPTHERIA TOXOID, 0.5, MILLILITERS, INTRAMUSCULAR INJECTION, Upper Right Arm, given by thor on 02/25/2006; consent form signed, literature given; Electronically Signed by: Nohemy Hernandez on Saturday, February 25, 2006 * Jina Banda MD - 12/29/2007 2:57 AM CDT PULSE: 72 Right Radial, Regular BLOOD PRESSURE: 130/82 Right Arm Sitting TEMPERATURE: 98.1??f Oral WEIGHT: 146lbs NURSE NAME: Killiany, Nohemy, M ALLERGIES: Allergies are as listed. MEDICATIONS: Medication list current. CHIEF COMPLAINT Seen for a preventive examination./ L hip pain HISTORY: HISTORY: Here for yearly PE. ONly complaint is left hip pain for the last month. Has been seeing chiropracter without relief. Hurts to lay on it and to go up steps or get out of a car. No injury. No radicularpain. Previous shoulder pain resolved. Feels well otherwise. CURRENT MEDICATION LIST: LEVOTHYROXINE SODIUM ORAL TABLET 112 MCG, 1 Every Day PAROXETINE HCL ORAL TABLET 10 MG, 1 po qd VITAMIN B12 ORAL TABLET 100 MCG, 1 po qd ROS: GENERAL: Normal activity and energy level, no change in appetite. No major weight gain or loss. No malaise, chills, fever, diaphoresis. EYES: . Has had episodes in the past, none recent, where she will lose central vision in both eyes for about 10 min. No monocular vision loss. Is not followed by [facility]. Saw painter decorator and had normal exam. ENT: No hearing loss, epistaxis, hoarseness or dysphagia. No sinus congestion. CARDIAC: No chest pain, palpitations, orthopnea, dyspnea on exertion, or paroxysmal nocturnal dyspnea. RESPIRATORY: No dyspnea, cough, hemoptysis or wheezing. : No frequency, urgency, hematuria or dysuria. GI: No abdominal pain, nausea, vomiting, diarrhea, constipation, melena, or hematochezia. FAMILY HISTORY: FATHER: The father is . The cause of was emphysema. MOTHER: The mother is living. Illnesses: Heart disease, hypertension. SIBLINGS: 1) The patient's brother is living. Illnesses: Heart disease. SOCIAL HISTORY: TOBACCO USE: Has no significant smoking history. EXERCISES: The patient is not exercising regularly. PHYSICAL EXAMINATION: CONSTITUTIONAL: GENERAL APPEARANCE: female, appears stated age, normal body habitus. EYES: PUPILS: Pupils equal and normally reactive to light and accommodation. EARS, NOSE, MOUTH AND THROAT: EARS: Tympanic membranes shiny without retraction. Canals unremarkable. Hearing grossly normal. ORAL: Inspection of gums, lips, palate, and teeth normal. No scars, lesions, or masses. Oral mucosaunremarkable with non-inflamed posterior pharynx. NECK/THYROID: Trachea midline. No thyroid enlargement, tenderness, or mass. No supraclavicular or cervical adenopathy. RESPIRATORY: Clear to auscultation and percussion. Normal respiratory effort. CARDIOVASCULAR: CARDIAC: Regular rhythm. No murmurs, rubs, or gallops. ARTERIAL: No aortic bruits. EDEMA/VARICOSITIES OF EXTREMITIES: No edema or varicosities. BREAST/CHEST: Deferred per pt. Does do monthly BSE. GASTROINTESTINAL: ABDOMEN: Soft, non-tender, without masses. Bowel sounds active. LIVER/SPLEEN/KIDNEY: No hepatosplenomegaly, tenderness or nodularity. Kidneys not palpable. MUSCULOSKELETAL EXAM: EXTREMITIES: LEFT LOWER EXTREMITY: Tender over left bursa. Has discomfort with external rotation and abduction of hip. SKIN: SKIN: Warm, dry, no diaphoresis, no significant lesions, irritation, rashes or ulcers. No induration, obvious subcutaneous nodules or tightening. ASSESSMENT/PLAN: 244.9-HYPOTHYROIDISM LAB ORDERS: Order number: [id number] Test Ordered: LIPID PANEL 7600 Order number: [id number] Test Ordered: TSH 899 Order number: [id number] Test Ordered: GLUCOSE 483 280.9-IRON DEFICIENCY ANEMIA LAB ORDERS: Order number: [id number] Test Ordered: CBC (INCLUDES DIFF/PLT) 6399 719.45-PAIN JOINT HIP ASSESSMENT: Likely more of bursitis. If does not resolve, refer to orthopedist. LAB ORDERS: Order number: [id number] Test Ordered: XRAY HIP LEFT V70.0-ROUTINE GENERAL MEDICAL EXAMINATION V06.5-NEED FOR VACC TETANUS-DIPHTHERIA (TD) LAB ORDERS: Order number: [id number] Test Ordered: INJ-TETANUS AND DIPTHERIA TOXOID 62112 HEALTH MAINTENANCE: LAST PAP DATE: . LAST MAMMOGRAM DATE: . LAST TD: today PREVENTIVE COUNSELING The patient was counseled regarding regular self- examination of the breasts on a monthly basis, regular sustained exercise for at least 30 minutes 3-4 times per week, adult immunizations, routine screening interval for mammogram as recommended by the [employer] and ACOG, importance of regular PAP smears, regular use of seat belts, tobacco use. Encouraged her to get flu shot. RETURN VISIT : Patient instructed to return in 1 year. Electronically Signed by: Jina Banda MD on Saturday, February 25, 2006 documented in this encounter Plan of Treatment Upcoming Encounters Date Type Department Care Team (Late st Contact Info) Description 09/08/2024 12:00 PM CDT Office Visit [facility] Heart and Vascular At [address] [place] [address] Randal Cooley MD [address] [place] [address] 2014 [place] [address] 10/27/2024 10:00 AM CDT Office Visit [facility] Heart and Vascular At [address] [place] [address] Randal Cooley MD [address] [place] [address] 2014 [place] [address] 10/28/2024 9:30 AM CDT Office Visit [facility] [address] [place] [address] [place] [address] [place] [address] documented as of this encounter Visit Diagnoses Not on filedocumented in this encounter Additional Health Concerns Infection Onset Date Last Indicated Resolved Time R/O COVID-19 11/08/2019 11/08/2019 11/11/2019 12:3 1 AM CDT R/O COVID-19 02/01/2020 02/01/2020 02/03/2020 2:00 AM MID LEVEL PROJECT MANAGER documented as of this encounter Care Teams Senior Receptionist Relationship Specialty Start Date End Date Jina Banda MD PCP - General Internal Medicine 06/20/16 12/03/21 documented as of this encounter
--- OUTSIDE RECORDS SUMMARY | 2024-05-18 07:47 | XMS_ITS | Clinical Summary ---
Author Organization [facility] [employer] Address [address] [facility] [place] [address] Care Team Providers Care Rig Builder Helper Name Role Phone Mervin Jay DO Primary Care Provider [phone] Source Comments [facility] [employer],non-owned Affiliates and Associated Physician Practices is amultiple site organization consisting of ambulatory clinics and hospital sitesin [place], [place], [place] and [place]. This disclosure is being madepursuant to the Care Everywhere program and may not contain all information available regarding this patient. Last updated 17.[facility] [employer] Allergies Active Allergy Reactions Criticality Noted Date Comments Amoxicillin GI Discomfort 09/11/2018 Doxycycline Headache 09/11/2018 Morphine Vomiting 09/11/2018 Sulfa Drugs Urticaria Medium 09/11/2018 Medications * Be aware that medications may not be up to date on this document. Alwaysverify current medications with the patient. Medication Sig Dispensed Refills Start Date End Date Status levothyroxine (TIROSINT) 88 MCG capsule Take 88 mcg by mouth daily before breakfast Active escitalopram (LEXAPRO) 10 MG tablet Take 10 mg by mouth once daily Active metoprolol tartrate (LOPRESSOR) 25 MG tablet Take 25 mg by mouth 2 times daily Active ALPRAZolam, disintegrating, (NIRAVAM) 0.25 MG tablet Take 0.25 mg by mouth 3 times daily as needed for Anxiety Active atorvastatin (LIPITOR) 20 MG tablet Take 20 mg by mouth at bedtime Active aspirin (ASPIRIN) 81 MG tablet Take 81 mg by mouth once daily Active Cyanocobalamin (B-12) 1000 MCG TABS Acti ve vitamin D3 (D3 HIGH POTENCY) 1000 UNIT capsule Take 1,000 Units by mouth once daily Active nitroGLYCERIN (NITROSTAT) 0.4 MG tablet Dissolve 0.4 mg under the tongue every 5 minutes as needed for Angina Active estrogens, conjugated, (PREMARIN) 0.625 MG/GM vaginal cream Insert 0.5 g into the vagina at bedtime Active mupirocin (BACTROBAN) 2 % ointment Apply to affected area 3 times daily Active fluticasone propionate (FLONASE) 50 MCG/ACT nasal sprayIndications:Acu te pharyngitis, unspecified etiology Balko 2 sprays into each nostril once daily 1 bottles 09/11/2018 Active diphenhydramine 12.5mg/ml, 30ml,; visc lidocaine 2%, 30ml,; maalox, 30ml, (MIRACLE MOUTHWASH) SUSPIndications:Acut e pharyngitis, unspecified etiology Swish and spit 10 mL every 4 hours as needed 90 mL 09/11/2018 Active Family History Medical History Relation Name Comments CAD (Coronary Artery Disease) Father Relation Name Status Comments Father Social History Tobacco Use Types Packs/Day Years Used Date Smoking Tobacco: Never Smokeless Tobacco: Never Alcohol Use Standard Drinks/Week Comments No 0 (1 standard drink = 0.6 oz pur e alcohol) Sex and Gender Information Value Date Recorded Sex Assigned at Not on file Gender Identity Not on file Sexual Orientation Not on file Last Filed Vital Signs Vital Sign Reading Time Taken Comments Blood Pressure 114/74 09/11/2018 2:42 PM CDT Pulse 71 09/11/2018 2:42 PM CDT Temperature 37.1 C (98.8 F) 09/11/2018 2:42 PM CDT Respiratory Rate 16 09/11/2018 2:42 PM CDT Oxygen Saturation 96% 09/11/2018 2:42 PM CDT Inhaled Oxygen Concentration - - Weight 68 kg (150 lb) 09/11/2018 2:42 PM CDT Height 154.9 cm (5' 1 ) 09/11/2018 2:42 PM CDT Body Mass Index 28.34 09/11/2018 2:42 PM CDT Plan of Treatment Health Maintenance Due Date Last Done Comments BONE DENSITY TESTING 1958 COLOGUARD (AGES 45-75) - COLON CA SCREENING 1958 COLON MONITORING 1958 COLONOSCOPY - COLON CA SCREENING 1958 CT COLONOGRAPHY - COLON CA SCREENING 1958 Colorectal Cancer Screening 1958 FIT - COLON CA SCREENING 1958 FLEX SIG - COLON CA SCREENING 1958 MAMMOGRAM 1958 MEDICARE AWV 12 MONTHS 1958 PAP SMEAR 1958 HIV SCREENING 1973 HEPATITIS C SCREENING 12/20/1976 DTAP/TDAP/TD VACCINES (1 - Tdap) 1977 PNEUMOCOCCAL VACCINE 50+ (1 of 1 - PCV) 2008 ZOSTER VACCINE (1 of 2) 2008 SCREENING FOR DIABETES 09/11/2018 Respiratory Syncytial Virus (RSV) Vaccine Pt: or over 60 yrs (1 - Risk 60-74 years 1-dose series) 2018 COVID-19 VACCINE ( - season) 2023 INFLUENZA VACCINE (#1) 2023 8, 01/26/2017, 01/21/2016, Additional history exists DEPRESSION SCREENING 03/16/2024 HEPATITIS B VACCINE Aged Out No longe r eligible based on patient's age to complete this topic HIB VACCINE Aged Out No longer eligi ble based on patient's age to complete this topic HPV VACCINE Aged Out No longer eligi ble based on patient's age to complete this topic MENINGOCOCCAL (Group B) VACCINE Aged Out No longer eligible based on patient's age to complete this topic MENINGOCOCCAL VACCINE Aged Out No nancy felicita eligible based on patient's age to complete this topic Care Teams Rig Builder Helper Relationship Specialty Start Date End Date Mervin Jay DO PCP - General 09/26/20
--- OUTSIDE RECORDS SUMMARY | 2024-05-18 07:47 | XMS_ITS | Encounter Summary ---
Author Organization [facility] Address [address] [place] [address] Care Team Providers Care Elementary School Music Teacher Name Role Phone Jina Banda MD Primary Care Provider Unav ailable Encounter Details Date Type Department Care Team (Late st Contact Info) Description 05/03/2003 Outpatient Historical [facility] Internal Medicine - [facility] [id number] [place] [address] [address] [place] [address] Jina Banda MD NO ADDRESS ON FILE Social History Tobacco Use Types Packs/Day Years Used Date Smoking Tobacco: Never Assessed Comments Unknown Sex and Gender Information Value Date Recorded Sex Assigned at Not on file Legal Sex Female 5:30 AM DIPLOMATIC INTERPRETER Gender Identity Not on file Sexual Orientation Not on file documented as of this encounter Plan of Treatment Upcoming Encounters Date Type Department Care Team (Late st Contact Info) Description 09/08/2024 12:00 PM CDT Office Visit [facility] Heart and Vascular At [address] [place] [address] Randal Cooley MD [address] [place] [address] 2014 [place] [address] 10/27/2024 10:00 AM CDT Office Visit [facility] Heart and Vascular At [address] [place] [address] Randal Cooley MD [address] [place] [address] [address] [place] [address] 10/28/2024 9:30 AM CDT Office Visit [facility] Urology [facility] [address] [facility] [address] [facility] [address] [place] [address] [place] [address] [facility] [address] [facility] [address] [place] [address] documented as of this encounter Visit Diagnoses Not on filedocumented in this encounter Additional Health Concerns Infection Onset Date Last Indicated Resolved Time R/O COVID-19 11/08/2019 11/08/2019 11/11/2019 12:3 1 AM CDT R/O COVID-19 02/01/2020 02/01/2020 02/03/2020 2:00 AM DIPLOMATIC INTERPRETER documented as of this encounter Care Teams Elementary School Music Teacher Relationship Specialty Start Date End Date Jina Banda MD PCP - General Internal Medicine 06/20/16 12/03/21 documented as of this encounter
--- OUTSIDE RECORDS SUMMARY | 2024-05-18 07:47 | XMS_ITS | Encounter Summary ---
Author Organization [facility] Address [address] [place] [address] Care Team Providers Care Gaming Floor Supervisor Name Role Phone Jina Banda MD Primary Care Provider Unav ailable Encounter Details Date Type Department Care Team (Latest Contact Info) Description 11/24/2001 Outpatient Historical [facility] Chato Aguilera MD [address] [place], [place] [address] [place] [address] SCREENING MAMM-MAILG NEOPL-OTHER (Primary Dx) Social History Tobacco Use Types Packs/Day Years Used Date Smoking Tobacco: Never Assessed Comments Unknown Sex and Gender Information Value Date Recorded Sex Assigned at Not on file Legal Sex Female 5:30 AM TECHNICAL ASSOCIATE Gender Identity Not on file Sexual Orientation Not on file documented as of this encounter Plan of Treatment Upcoming Encounters Date Type Department Care Team (Late st Contact Info) Description 09/08/2024 12:00 PM CDT Office Visit [facility] Heart and Vascular At [address] [place] [address] Randal Cooley MD [address] [place] [address] 2014 [place], [place] [address] 10/27/2024 10:00 AM CDT Office Visit [facility] Heart and Vascular At [address] [place] [address] Randal Cooley MD [address] [place] [address] 2014 [place] [address] 10/28/2024 9:30 AM CDT Office Visit [facility] Urology [facility] [address] [facility] [address] [place] [address] [place] [address] [facility] [address] [place] [address] documented as of this encounter Visit Diagnoses Diagnosis Other screening mammogram- Primary documented in this encounter Additional Health Concerns Infection Onset Date Last Indicated Resolved Time R/O COVID-19 11/08/2019 11/08/2019 11/11/2019 12:3 1 AM CDT R/O COVID-19 02/01/2020 02/01/2020 02/03/2020 2:00 AM TECHNICAL ASSOCIATE documented as of this encounter Care Teams Gaming Floor Supervisor Relationship Specialty Start Date End Date Jina Banda MD PCP - General Internal Medicine 06/20/16 12/03/21 documented as of this encounter
--- OUTSIDE RECORDS SUMMARY | 2024-05-18 07:47 | XMS_ITS | Encounter Summary ---
Author Organization [facility] Address [address] [place] [address] Care Team Providers Care Cellular Equipment Repairer Name Role Phone Jina Banda MD Primary Care Provider Unav ailable Encounter Details Date Type Department Care Team (Late st Contact Info) Description 01/14/2008 Outpatient Historical [facility], [address] Jina Banda MD NO ADDRESS ON FILE Urinary Tract Infection, Site not Specified Social History Tobacco Use Types Packs/Day Years Used Date Smoking Tobacco: Never Alcohol Use Standard Drinks/Week Comments Not Asked 0 (1 standard drink = 0.6 oz pur e alcohol) Comments No Sex and Gender Information Value Date Recorded Sex Assigned at Not on file Legal Sex Female 5:30 AM MOLDED PARTS INSPECTOR Gender Identity Not on file Sexual Orientation Not on file documented as of this encounter Plan of Treatment Upcoming Encounters Date Type Department Care Team (Late st Contact Info) Description 09/08/2024 12:00 PM CDT Office Visit [facility] Heart and Vascular At [address] [place] [address] Randal Cooley MD [address] [place] [address] 2014 [place] [address] 10/27/2024 10:00 AM CDT Office Visit [facility] Heart and Vascular At [address] [place] [address] Randal Cooley MD [address] [place] [address] 2014 [place] [address] 10/28/2024 9:30 AM CDT Office Visit [facility] Urology [facility] [address] [facility] [address] [place] [address] [place] [address] [facility] [address] [facility] [address] [place] [address] documented as of this encounter Visit Diagnoses Diagnosis Urinary tract infection, site not specified documented in this encounter Additional Health Concerns Infection Onset Date Last Indicated Resolved Time R/O COVID-19 11/08/2019 11/08/2019 11/11/2019 12:3 1 AM CDT R/O COVID-19 02/01/2020 02/01/2020 02/03/2020 2:00 AM MOLDED PARTS INSPECTOR documented as of this encounter Care Teams Cellular Equipment Repairer Relationship Specialty Start Date End Date Jina Banda MD PCP - General Internal Medicine 06/20/16 12/03/21 documented as of this encounter
--- OUTSIDE RECORDS SUMMARY | 2024-05-18 07:47 | XMS_ITS | Encounter Summary ---
Author Organization [facility] Address [address] [place] [address] Care Team Providers Care Hearing Aid Repairer Name Role Phone Jina Banda MD Primary Care Provider Unav ailable Encounter Details Date Type Department Care Team (Latest Contact Info) Description 10/23/2000 Outpatient Historical [facility] Chato Aguilera MD [address] [place] [address] Other screening mammogram (Primary Dx) Social History Tobacco Use Types Packs/Day Years Used Date Smoking Tobacco: Never Assessed Comments Unknown Sex and Gender Information Value Date Recorded Sex Assigned at Not on file Legal Sex Female 5:30 AM BENEFITS SPECIALIST Gender Identity Not on file Sexual Orientation Not on file documented as of this encounter Plan of Treatment Upcoming Encounters Date Type Department Care Team (Late st Contact Info) Description 09/08/2024 12:00 PM CDT Office Visit [facility] Heart and Vascular At [address] [place] [address] Randal Coloey MD [address] [place] [address] [address] [place] [address] 10/27/2024 10:00 AM CDT Office Visit [facility] Heart and Vascular At [address] [place] [address] Randal Cooley MD [address] [place] [address] 2014 [place] [address] 10/28/2024 9:30 AM CDT Office Visit [facility] Urology [facility] [address] [facility] [address] [place] [address] [place] [address] [facility] [place] [facility] [address] [place] [address] documented as of this encounter Visit Diagnoses Diagnosis Other screening mammogram- Primary documented in this encounter Additional Health Concerns Infection Onset Date Last Indicated Resolved Time R/O COVID-19 11/08/2019 11/08/2019 11/11/2019 12:3 1 AM CDT R/O COVID-19 02/01/2020 02/01/2020 02/03/2020 2:00 AM BENEFITS SPECIALIST documented as of this encounter Care Teams Hearing Aid Repairer Relationship Specialty Start Date End Date Jina Banda MD PCP - General Internal Medicine 06/20/16 12/03/21 documented as of this encounter
--- OUTSIDE RECORDS SUMMARY | 2024-05-18 07:47 | XMS_ITS | Encounter Summary ---
Author Organization [facility] Address [address] [place] [address] Care Team Providers Care Pesticide Control Inspector Name Role Phone Jina Banda MD Primary Care Provider Unav ailable Encounter Details Date Type Department Care Team (Late st Contact Info) Description 10/07/2000 Outpatient Historical [facility] Internal Medicine - [facility] [id number] [place] [address] [address] [place] [address] Jina Banda MD NO ADDRESS ON FILE Social History Tobacco Use Types Packs/Day Years Used Date Smoking Tobacco: Never Assessed Comments Unknown Sex and Gender Information Value Date Recorded Sex Assigned at Not on file Legal Sex Female 5:30 AM CHECKER CASHIER Gender Identity Not on file Sexual Orientation Not on file documented as of this encounter Plan of Treatment Upcoming Encounters Date Type Department Care Team (Late st Contact Info) Description 09/08/2024 12:00 PM CDT Office Visit [facility] Heart and Vascular At [address] [place] [address] Randal Cooley MD [address] [place] [address] [address] [place] [address] 10/27/2024 10:00 AM CDT Office Visit [facility] Heart and Vascular At [address] [place] [address] Randla Cooley MD [address] [place] [address] 2014 [place] [address] 10/28/2024 9:30 AM CDT Office Visit [facility] Urology [facility] [address] [facility] [address] [place] [address] [place] [address] [facility] [address] [facility] [address] [place] [address] documented as of this encounter Visit Diagnoses Not on filedocumented in this encounter Additional Health Concerns Infection Onset Date Last Indicated Resolved Time R/O COVID-19 11/08/2019 11/08/2019 11/11/2019 12:3 1 AM CDT R/O COVID-19 02/01/2020 02/01/2020 02/03/2020 2:00 AM CHECKER CASHIER documented as of this encounter Care Teams Pesticide Control Inspector Relationship Specialty Start Date End Date Jina Banda MD PCP - General Internal Medicine 06/20/16 12/03/21 documented as of this encounter
--- OUTSIDE RECORDS SUMMARY | 2024-05-18 07:47 | XMS_ITS | Encounter Summary ---
Author Organization [facility] Address [address] [place] [address] Care Team Providers Care Stave Bolt Equalizer Name Role Phone Jina Banda MD Primary Care Provider Unav ailable Encounter Details Date Type Department Care Team (Late st Contact Info) Description 02/25/2006 Outpatient Historical [facility] Internal Medicine - [facility] [id number] [place] [address] [address] [place] [address] Jina Banda MD NO ADDRESS ON FILE Social History Tobacco Use Types Packs/Day Years Used Date Smoking Tobacco: Never Assessed Comments Unknown Sex and Gender Information Value Date Recorded Sex Assigned at Not on file Legal Sex Female 5:30 AM ORACLE DATABASE CONSULTANT Gender Identity Not on file Sexual Orientation Not on file documented as of this encounter Plan of Treatment Upcoming Encounters Date Type Department Care Team (Late st Contact Info) Description 09/08/2024 12:00 PM CDT Office Visit [facility] Heart and Vascular At [address] [place] [address] Randal Cooley MD [address] [place] [address] [address] [place] [address] 10/27/2024 10:00 AM CDT Office Visit [facility] Heart and Vascular At [address] [place] [address] Randal Cooley MD [address] [place] [address] [address] [place] [address] 10/28/2024 9:30 AM CDT Office Visit [facility] Urology [facility] [address] [facility] [address] [place] [address] [place] [address] [facility] [address] [facility] [address] [place] [address] documented as of this encounter Visit Diagnoses Not on filedocumented in this encounter Additional Health Concerns Infection Onset Date Last Indicated Resolved Time R/O COVID-19 11/08/2019 11/08/2019 11/11/2019 12:3 1 AM CDT R/O COVID-19 02/01/2020 02/01/2020 02/03/2020 2:00 AM ORACLE DATABASE CONSULTANT documented as of this encounter Care Teams Stave Bolt Equalizer Relationship Specialty Start Date End Date Jina Banda MD PCP - General Internal Medicine 06/20/16 12/03/21 documented as of this encounter
--- OUTSIDE RECORDS SUMMARY | 2024-05-18 07:47 | XMS_ITS | Encounter Summary ---
Author Organization [facility] Address 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 Heart and Vascular At [address] [place] [address] Randal Cooley MD [address] [place] [address] 2014 [place] [address] 10/27/2024 10:00 AM CDT Office Visit [facility] Heart and Vascular At [address] [place] [address] Randal Cooley MD [address] [place] [address] 2014 [place] [address] 10/28/2024 9:30 AM CDT Office Visit [facility] Urology [facility] [address] [place] [address] [place] [address] [place] [address] [facility] [address] [facility] [address] [place] [address] documented as of this encounter Visit Diagnoses Diagnosis Heat exhaustion, unspecified- Primary documented in this encounter Additional Health Concerns Infection Onset Date Last Indicated Resolved Time R/O COVID-19 11/08/2019 11/08/2019 11/11/2019 12:3 1 AM CDT R/O COVID-19 02/01/2020 02/01/2020 02/03/2020 2:00 AM MOTORBOAT MECHANIC HELPER documented as of this encounter Care Teams Rubber Goods Finisher Relationship Specialty Start Date End Date Jina Banda MD PCP - General Internal Medicine 06/20/16 12/03/21 documented as of this encounter
--- OUTSIDE RECORDS SUMMARY | 2024-05-18 07:47 | XMS_ITS | Encounter Summary ---
Author Organization [facility] Address [address] [place] [address] Care Team Providers Care Engineering Mechanic Name Role Phone Jina Banda MD Primary Care Provider Unav ailable Encounter Details Date Type Department Care Team (Late st Contact Info) Description 02/12/2005 Outpatient Historical [facility] Internal Medicine - [facility] [address] [place] [address] [address] [place] [address] Jina Banda MD NO ADDRESS ON FILE Social History Tobacco Use Types Packs/Day Years Used Date Smoking Tobacco: Never Assessed Comments Unknown Sex and Gender Information Value Date Recorded Sex Assigned at Not on file Legal Sex Female 5:30 AM EDUCATIONAL PARAPROFESSIONAL Gender Identity Not on file Sexual Orientation Not on file documented as of this encounter Last Filed Vital Signs Vital Sign Reading Time Taken Comments Blood Pressure 114/60 02/12/2005 2:00 PM EDUCATIONAL PARAPROFESSIONAL Pulse 80 02/12/2005 2:00 PM EDUCATIONAL PARAPROFESSIONAL Temperature 37.1 C (98.8 F) 02/12/2005 2:00 PM EDUCATIONAL PARAPROFESSIONAL Respiratory Rate - - Oxygen Saturation - - Inhaled Oxygen Concentration - - Weight 63.5 kg (140 lb) 02/12/2005 2:00 PM EDUCATIONAL PARAPROFESSIONAL Height - - Body Mass Index - - documented in this encounter Plan of Treatment Upcoming Encounters Date Type Department Care Team (Late st Contact Info) Description 09/08/2024 12:00 PM CDT Office Visit [facility] Heart and Vascular At [address] [place] [address] Randal Cooley MD [address] [place] [address] [address] [place] [address] 10/27/2024 10:00 AM CDT Office Visit [facility] Heart and Vascular At [address] [place] [address] Randal Cooley MD [address] [place] [address] [address] [place] [address] 10/28/2024 9:30 AM CDT Office Visit [facility] Urology [facility] [address] [place] [address] [place] [address] [facility] [address] [place] [address] documented as of this encounter Visit Diagnoses Not on filedocumented in this encounter Additional Health Concerns Infection Onset Date Last Indicated Resolved Time R/O COVID-19 11/08/2019 11/08/2019 11/11/2019 12:3 1 AM CDT R/O COVID-19 02/01/2020 02/01/2020 02/03/2020 2:00 AM EDUCATIONAL PARAPROFESSIONAL documented as of this encounter Care Teams Engineering Mechanic Relationship Specialty Start Date End Date Jina Banda MD PCP - General Internal Medicine 06/20/16 12/03/21 documented as of this encounter
--- OUTSIDE RECORDS SUMMARY | 2024-05-18 07:47 | XMS_ITS | Encounter Summary ---
Author Organization [facility] Address [address] [place] [address] Care Team Providers Care Movement Therapist Name Role Phone Jina Banda MD Primary Care Provider Unav ailable Encounter Details Date Type Department Care Team (Late st Contact Info) Description 08/15/2002 Outpatient Historical [facility] Internal Medicine - [facility] [id number] [place] [address] [address] [place] [address] Jina Banda MD NO ADDRESS ON FILE Social History Tobacco Use Types Packs/Day Years Used Date Smoking Tobacco: Never Assessed Comments Unknown Sex and Gender Information Value Date Recorded Sex Assigned at Not on file Legal Sex Female 5:30 AM TIEDOWN OPERATOR Gender Identity Not on file Sexual Orientation Not on file documented as of this encounter Plan of Treatment Upcoming Encounters Date Type Department Care Team (Late st Contact Info) Description 09/08/2024 12:00 PM CDT Office Visit [facility] Heart and Vascular At [address] [place] [address] Randal Cooley MD [address] [place] [address] 2014 [place] [address] 10/27/2024 10:00 AM CDT Office Visit [facility] Heart and Vascular At [address] [place] [address] Randal Cooley MD [address] [place] [address] 2014 [place] [address] 10/28/2024 9:30 AM CDT Office Visit [facility] U[facility] [address] [facility] [address] [place] [address] [place] [address] [facility] [address] [facility] [address] [place] [address] documented as of this encounter Visit Diagnoses Not on filedocumented in this encounter Additional Health Concerns Infection Onset Date Last Indicated Resolved Time R/O COVID-19 11/08/2019 11/08/2019 11/11/2019 12:3 1 AM CDT R/O COVID-19 02/01/2020 02/01/2020 02/03/2020 2:00 AM TIEDOWN OPERATOR documented as of this encounter Care Teams Movement Therapist Relationship Specialty Start Date End Date Jina Banda MD PCP - General Internal Medicine 06/20/16 12/03/21 documented as of this encounter
--- OUTSIDE RECORDS SUMMARY | 2024-05-18 07:47 | XMS_ITS | Encounter Summary ---
Author Organization [facility] Address [address] [place] [address] Care Team Providers Care Chalk Molding Machine Operator Name Role Phone Jina Banda MD Primary Care Provider Unav ailable Encounter Details Date Type Department Care Team (Late st Contact Info) Description 07/01/2002 Outpatient Historical [facility] Internal Medicine - [facility] [id number] [place] [address] [address] [place] [address] Jina Banda MD NO ADDRESS ON FILE Social History Tobacco Use Types Packs/Day Years Used Date Smoking Tobacco: Never Assessed Comments Unknown Sex and Gender Information Value Date Recorded Sex Assigned at Not on file Legal Sex Female 5:30 AM SVP DIGITAL AD SALES Gender Identity Not on file Sexual Orientation Not on file documented as of this encounter Plan of Treatment Upcoming Encounters Date Type Department Care Team (Late st Contact Info) Description 09/08/2024 12:00 PM CDT Office Visit [facility] Heart and Vascular At [address] [place] [address] Randal Cooley MD [address] [place] [address] 2014 [place] [address] 10/27/2024 10:00 AM CDT Office Visit [facility] Heart and Vascular At [address] [place] [address] Randal Cooley MD [address] [place] [address] 2014 [place] [address] 10/28/2024 9:30 AM CDT Office Visit [facility] Urology [facility] [address] [facility] [address] [place] [address] [place] [address] [facility] [address] [facility] [address] [place] [address] documented as of this encounter Visit Diagnoses Not on filedocumented in this encounter Additional Health Concerns Infection Onset Date Last Indicated Resolved Time R/O COVID-19 11/08/2019 11/08/2019 11/11/2019 12:3 1 AM CDT R/O COVID-19 02/01/2020 02/01/2020 02/03/2020 2:00 AM SVP DIGITAL AD SALES documented as of this encounter Care Teams Chalk Molding Machine Operator Relationship Specialty Start Date End Date Jina Banda MD PCP - General Internal Medicine 06/20/16 12/03/21 documented as of this encounter
--- OUTSIDE RECORDS SUMMARY | 2024-05-18 07:47 | XMS_ITS | Encounter Summary ---
Author Organization [facility] Address [address] [place] [address] Care Team Providers Care Supervisor Print Line Name Role Phone Jina Banda MD Primary Care Provider Unav ailable Encounter Details Date Type Department Care Team (Late st Contact Info) Description 07/19/2002 Outpatient Historical [facility] Internal Medicine - [place] 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 Gender Identity Not on file Sexual Orientation Not on file documented as of this encounter Plan of Treatment Upcoming Encounters Date Type Department Care Team (Late st Contact Info) Description 09/08/2024 12:00 PM CDT Office Visit [facility] Heart and Vascular At [address] [place] [address] Randal Cooley MD [address] [place] [address] 2014 [place] [address] 10/27/2024 10:00 AM CDT Office Visit [facility] Heart and Vascular At [address] [place] [address] Randal Cooley MD [address] [place] [address] 2014 [place] [address] 10/28/2024 9:30 AM CDT Office Visit [facility] Urology [facility] [address] [facility] [address] [place] [address] [place] [address] [facility] [address] [facility] [address] [place] [address] documented as of this encounter Visit Diagnoses Not on filedocumented in this encounter Additional Health Concerns Infection Onset Date Last Indicated Resolved Time R/O COVID-19 11/08/2019 11/08/2019 11/11/2019 12:3 1 AM CDT R/O COVID-19 02/01/2020 02/01/2020 02/03/2020 2:00 AM ANIMAL HOSPITAL OFFICE SUPERVISOR documented as of this encounter Care Teams Supervisor Print Line Relationship Specialty Start Date End Date Jina Banda MD PCP - General Internal Medicine 06/20/16 12/03/21 documented as of this encounter
--- OUTSIDE RECORDS SUMMARY | 2024-05-18 07:47 | XMS_ITS | Encounter Summary ---
Author Organization [facility] Address [address] [place] [address] Care Team Providers Care Manager Renewable Energy Name Role Phone Jina Banda MD Primary Care Provider Unav ailable Encounter Details Date Type Department Care Team (Late st Contact Info) Description 12/20/2001 Outpatient Historical [facility] Internal Medicine - [facility] [id number] [place] [address] [address] [place] [address] Jina Banda MD NO ADDRESS ON FILE Social History Tobacco Use Types Packs/Day Years Used Date Smoking Tobacco: Never Assessed Comments Unknown Sex and Gender Information Value Date Recorded Sex Assigned at Not on file 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 Gender Identity Not on file Sexual Orientation Not on file documented as of this encounter Plan of Treatment Upcoming Encounters Date Type Department Care Team (Late st Contact Info) Description 09/08/2024 12:00 PM CDT Office Visit [facility] Heart and Vascular At [address] [place] [address] Randal Cooley MD [address] [place] [address] 2014 [place] [address] 10/27/2024 10:00 AM CDT Office Visit [facility] Heart and Vascular At [address] [place] [address] Randal Cooley MD [address] [place] [address] 2014 [place] [address] 10/28/2024 9:30 AM CDT Office Visit [facility] Urology [facility] [address] [facility] [address] [place] [address] [place] [address] [facility] [address] [facility] [address] [place] [address] documented as of this encounter Visit Diagnoses Not on filedocumented in this encounter Additional Health Concerns Infection Onset Date Last Indicated Resolved Time R/O COVID-19 11/08/2019 11/08/2019 11/11/2019 12:3 1 AM CDT R/O COVID-19 02/01/2020 02/01/2020 02/03/2020 2:00 AM ICE GUARD TESTER documented as of this encounter Care Teams Manager Renewable Energy Relationship Specialty Start Date End Date Jina Banda MD PCP - General Internal Medicine 06/20/16 12/03/21 documented as of this encounter
--- OUTSIDE RECORDS SUMMARY | 2024-05-18 07:47 | XMS_ITS | Encounter Summary ---
Author Organization [facility] Address [address] [place] [address] Care Team Providers Care Regional Psychiatric Director Name Role Phone Jina Banda MD Primary Care Provider Unav ailable Encounter Details Date Type Department Care Team (Late st Contact Info) Description 06/16/2006 Outpatient Historical [facility] Internal Medicine - [facility] [address] [address] [facility] [address] [place] [address] Jina Banda MD NO ADDRESS ON FILE Other Specified Visual Disturbances (Primary Dx) Social History Tobacco Use Types Packs/Day Years Used Date Smoking Tobacco: Never Assessed Comments Unknown Sex and Gender Information Value Date Recorded Sex Assigned at Not on file Legal Sex Female 5:30 AM SOCIAL 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 TEACHER Gender Identity Not on file Sexual Orientation Not on file documented as of this encounter Plan of Treatment Upcoming Encounters Date Type Department Care Team (Late st Contact Info) Description 09/08/2024 12:00 PM CDT Office Visit [facility] Heart and Vascular At [address] [place] [address] Randal Cooley MD [address] [place] [address] 2014 [place] [address] 10/27/2024 10:00 AM CDT Office Visit [facility] Heart and Vascular At [address] [place] [address] Randal Cooley MD [address] [place] [address] 2014 [place] [address] 10/28/2024 9:30 AM CDT Office Visit [facility] Urology [facility] [address] [place] [address] [place] [address] [place] [address] documented as of this encounter Procedures Procedure Name Priority Date/Time Associated Diagnosis Comments BASIC METABOLIC PANEL Routine 06/16/2006 8:58 AM CDT documented in this encounter Results * (ABNORMAL) BASIC METABOLIC PANEL (06/16/2006 8:58 AM CDT) GLUCOSE 85 65 - 99 mg/dL INTERFACE SYSTEM CREATININE 0.62 0.51 - 0.95 mg/dL INTERFACE SYSTEM CALCIUM 8.5 8.4 - 10.2 mg/dL INTERFACE SYSTEM BUN 12 6 - 20 mg/dL INTERFACE SYSTEM SODIUM 142 135 - 145 mmol/L INTERFACE SYSTEM POTASSIUM 3.6 3.5 - 4.9 mmol/L INTERFACE SYSTEM CHLORIDE 109(H) 96 - 108 mmol/L INTERFACE SYSTEM CO2 23 22 - 30 mmol/L INTERFACE SYSTEM GFR, >60 >=60 mL/min/1. 7 sq meter INTERFACE SYSTEM GFR >60 >=60 mL/min/1. 7 sq meter INTERFACE SYSTEM Comment: Estimated GFR rate interpretative information for both Americans and non- Americans is available on the [facility] Intranet at: [email or web address] Select: Lab Policies and Procedures Select: Reference Ranges - GFR 06/16/2006 8:58 AM CDT Jina Banda MD CHEMISTRY ORDERABLES Edited INTERFACE SYSTEM Refer to clinic/hospital department documented in this encounter Visit Diagnoses Diagnosis Other specified visual disturbances- Primary documented in this encounter Additional Health Concerns Infection Onset Date Last Indicated Resolved Time R/O COVID-19 11/08/2019 11/08/2019 11/11/2019:3 1 AM CDT R/O COVID-19 02/01/2020 02/01/2020 02/03/2020 2:00 AM SOCIAL STUDIES TEACHER documented as of this encounter Care Teams Regional Psychiatric Director Relationship Specialty Start Date End Date Jina Banda MD PCP - General Internal Medicine 06/20/16 12/03/21 documented as of this encounter
--- OUTSIDE RECORDS SUMMARY | 2024-05-18 07:47 | XMS_ITS | Encounter Summary ---
Author Organization [facility] Address [address] [place] [address] Care Team Providers Care Self Sealing Fuel Tank Builder Name Role Phone iJna Banda MD Primary Care Provider Unav ailable Encounter Details Date Type Department Care Team (Late st Contact Info) Description 03/23/2006 Orders Only [facility] Internal Medicine - [facility] [phone] [id number] [facility] [address] [place] [address] iJna Banda MD NO ADDRESS ON FILE Social History Tobacco Use Types Packs/Day Years Used Date Smoking Tobacco: Never Assessed Comments Unknown Sex and Gender Information Value Date Recorded Sex Assigned at Not on file Legal Sex Female 5:30 AM JACK STRIP ASSEMBLER Gender Identity Not on file Sexual Orientation Not on file documented as of this encounter Progress Notes * Jina Banda MD - 08/10/2007 10:20 AM CDT TIME:10:06 am PATIENT`S HOME PHONE: PATIENT`S WORK PHONE: PATIENT`S INSURANCE: [facility] WHO TOOK THE CALL: Tiera March C GENERAL INFORMATION WHO CALLED: Pharmacy called. fax PHARMACY NUMBER: [phone] SECTION 1: REQUESTED ACTION nedra 03/23/06 at 10:07 am: MEDICATION REQUEST: MEDICATIONS: LEVOTHYROXINE SODIUM ORAL TABLET 112 MCG, 1 Every Day, 30 Dispensed, 11 Fills, status: NEW PRESCRIPTION, 03/07/2005. last filled 02/07/06 DOCTOR`S RESPONSE: herlinda 03/23/06 at 04:20 pm MEDICATIONS: LEVOTHYROXINE SODIUM ORAL TABLET 112 MCG, 1 Every Day, 30 Dispensed, 6 Fills, status: CONTINUED, 03/23/2006. FINAL ACTION: thor 03/23/06 at 05:30 pm Called pharmacy at 03/23/06 at 05:30 pm. Electronically Signed by: Nohemy Hernandez on Thursday, March 23, 2006 documented in this encounter Plan of Treatment Upcoming Encounters Date Type Department Care Team (Late st Contact Info) Description 09/08/2024 12:00 PM CDT Office Visit [facility] Heart and Vascular At [address] [place] [address] Randal Cooley MD [address] [place] [address] [address] [place] [address] 10/27/2024 10:00 AM CDT Office Visit [facility] At [address] [place] [address] Randal Cooley MD [address] [place] [address] [address] [place] [address] 10/28/2024 9:30 AM CDT Office Visit [facility] Urology [facility] [address] [phone] [place] [address] [phone] documented as of this encounter Visit Diagnoses Not on filedocumented in this encounter Additional Health Concerns Infection Onset Date Last Indicated Resolved Time R/O COVID-19 11/08/2019 11/08/2019 11/11/2019 12:3 1 AM CDT R/O COVID-19 02/01/2020 02/01/2020 02/03/2020 2:00 AM JACK STRIP ASSEMBLER documented as of this encounter Care Teams Self Sealing Fuel Tank Builder Relationship Specialty Start Date End Date Jina Banda MD PCP - General Internal Medicine 06/20/16 12/03/21 documented as of this encounter
--- OUTSIDE RECORDS SUMMARY | 2024-05-18 07:47 | XMS_ITS | Encounter Summary ---
Author Organization [facility] Address [address] [place] [address] Care Team Providers Care Stapler Machine Name Role Phone Jina Banda MD Primary Care Provider Unav ailable Encounter Details Date Type Department Care Team (Late st Contact Info) Description 12/27/2007 Outpatient Historical [facility], [address] Jina Banda MD NO ADDRESS ON FILE Hematuria, Unspecified Social History Tobacco Use Types Packs/Day Years Used Date Smoking Tobacco: Never Alcohol Use Standard Drinks/Week Comments Not Asked 0 (1 standard drink = 0.6 oz pur e alcohol) Comments No Sex and Gender Information Value Date Recorded Sex Assigned at Not on file 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 Gender Identity Not on file Sexual Orientation Not on file documented as of this encounter Plan of Treatment Upcoming Encounters Date Type Department Care Team (Late st Contact Info) Description 09/08/2024 12:00 PM CDT Office Visit [facility] Heart and Vascular At [address] [place] [address] Randal Cooley MD [address] [place] [address] [address] [place] [address] 10/27/2024 10:00 AM CDT Office Visit [facility] Heart [facility] At [address] [place] [address] Randal Cooley MD [address] [place] [address] [address] [place] [address] 10/28/2024 9:30 AM CDT Office Visit [facility] Urology [facility] [address] [facility] [address] [place] [address] [place] [address] [facility] [address] [facility] [address] [place] [address] documented as of this encounter Visit Diagnoses Diagnosis Hematuria, unspecified documented in this encounter Additional Health Concerns Infection Onset Date Last Indicated Resolved Time R/O COVID-19 11/08/2019 11/08/2019 11/11/2019 12:3 1 AM CDT R/O COVID-19 02/01/2020 02/01/2020 02/03/2020 2:00 AM CAR REPAIRMAN documented as of this encounter Care Teams Stapler Machine Relationship Specialty Start Date End Date Jina Banda MD PCP - General Internal Medicine 06/20/16 12/03/21 documented as of this encounter
--- OUTSIDE RECORDS SUMMARY | 2024-05-18 07:47 | XMS_ITS | Clinical Summary ---
Author Organization [facility] Address [facility] [place] [address] Care Team Providers Care Quarry Supervisor Name Role Phone Mervin Jay DO Primary Care Provider [phone]- [phone] Allergies Active Allergy Reactions Criticality Noted Date Comments Amoxicillin Nausea And Vomiting,Stomach upset,Unknown Low 01/09/2009 Doxycycline Headache,Rash Medium 07/14/2016 Doxycycline Calcium Unknown 07/09/2023 Hydrocodone Hives High 10/27/2019 Hydrocodone Bitartrate Unknown 07/09/2023 Morphine Nausea And Vomiting,Vomiting Low 12/21/2012 Morphine Sulfate Unknown 07/09/2023 Penicillin G Benzathine Unknown 07/09/2023 Pneumococcal 23-Isis Ps Vaccine Other (See comments) Low 10/19/2019 Headache, nausea, vomiting. Sulfa (Sulfonamide Antibiotics) Urticaria,Unknown Medium 09/11/2018 Unclassified Drug Unknown 07/09/2023 Medications aspirin 81 mg chewable tablet Take 1 tablet (81 mg total) by mouth daily Active atorvastatin (LIPITOR) 40 mg tablet Take 1 tablet (40 mg total) by mouth daily 10/02/19 22 Active metoprolol tartrate (LOPRESSOR) 25 mg immediate release tablet Take 0.5 tablets (12.5 mg total) by mouth 2 (two) times a day 10/02/19 22 Active ALPRAZolam (XANAX) 0.25 mg tablet Take by mouth nightly as needed 05/07/19 21 Active levothyroxine (SYNTHROID) 88 mcg tablet Take 1 tablet (88 mcg total) by mouth daily 12/20/19 22 Active cholecalciferol (VITAMIN D-3) 1,000 unit capsule Take 1 capsule (1,000 Units total) by mouth daily Active cyanocobalamin (Vitamin B-12) 1,000 mcg tablet Take 2 tablets (2,000 mcg total) by mouth daily Active estradioL (ESTRACE) 0.01 % (0.1 mg/gram) vaginal cream INSERT VAGINALLY ONCE DAILY Active diphenoxylate-atro pine (LOMOTIL) 2.5-0.025 mg per tabletIndications: diarrhea Take 2 tablets by mouth 2 (two) times a day 120 tablet 1 11/10/19 24 Active Additional Information Patient taking differently: 1 tabletoralDaily, Indications: diarrhea, Reported on 03/07/2024 albuterol HFA (PROVENTIL HFA,VENTOLIN HFA,PROAIR HFA) 90 mcg/actuation inhaler Inhale 2 puffs every 6 (six) hours as needed Active amLODIPine (NORVASC) 5 mg tablet Take 1 tablet (5 mg total) by mouth daily Active apixaban (ELIQUIS) 5 mg tablet Take 1 tablet (5 mg total) by mouth 2 (two) times a day Active nitrofurantoin monohydrate (MACROBID) 100 mg capsule as needed 02/06/20 24 Active ondansetron ODT (ZOFRAN-ODT) 4 mg disintegrating tablet DISSOLVE 1 TABLET IN MOUTH EVERY 6 HOURS NEEDED FOR NAUSEA AND VOMITING 03/02/20 24 Active Klor-Con M20 20 mEq CR tablet Take 1 tablet (20 mEq total) by mouth as needed 03/02/20 24 Active Saccharomyces boulardii (FLORASTOR) 250 mg capsule Take 1 capsule (250 mg total) by mouth 2 (two) times a day 02/19/20 24 Active venlafaxine XR (EFFEXOR-XR) 75 mg 24 hr capsule Take 1 capsule (75 mg total) by mouth daily Active lisinopriL (PRINIVIL,ZESTRIL) 40 mg tablet Take 1 tablet (40 mg total) by mouth daily 02/17/20 24 Active Active Problems Problem Noted Date Diagnosed Date Lymphocytic colitis 05/04/2022 Chronic diarrhea 01/06/2022 Overview (01/06/2022): Added automatically from request for surgery [id number] Encounters Date Type Department Care Team Description 03/28/2024 10:15 AM HYDRAULIC RUBBISH COMPACTOR MECHANIC Lab [facility] [address] [place] [address] Recurrent pneumonia 03/28/2024 9:10 AM HYDRAULIC RUBBISH COMPACTOR MECHANIC Office Visit [facility] Allergy and Immunology [address] [place] [address] Andrzej Wyman MD Recurrent pneumonia (Primary Dx); IgA deficiency (HCC) 03/07/2024 3:00 PM HYDRAULIC RUBBISH COMPACTOR MECHANIC Office Visit [facility] Gastroenterology [address] [place] [address] Katelyn Toure NP Lymphocytic colitis (Primary Dx) 02/18/2024 10:30 AM HYDRAULIC RUBBISH COMPACTOR MECHANIC Ancillary Procedure [facility] Cardiology [address] [place] [address] Atrial fibrillation, unspecified type (HCC) from Last 3 Months Surgical History Surgery Date Site/Laterality Comments UPPER GASTROINTESTINAL ENDOSCOPY COLONOSCOPY Medical History Medical History Date Comments Chronic diarrhea Angina pectoris Family History Medical History Relation Name Comments Ulcerative colitis Daughter Hypertension Mother Kidney disease Mother Relation Name Status Comments Daughter Alive Mother Social History Tobacco Use Types Packs/Day Years Used Date Smoking Tobacco: Never Passive Smoke Exposure: Past Smokeless Tobacco: Never Tobacco Cessation:Counseling Given: Not Answered AUDIT-C Answer Date Recorded Q1: How often do you have a drink containing alc ohol? Monthly or less 01/23/2022 Q2: How many drinks containi ng alcohol do you have on a typical day when you are drinking? 1 or 2 01/23/2022 Frequency of Binge Drinking Not on file 01/14 Comments No Sex and Gender Information Value Date Recorded Sex Assigned at Not on file Legal Sex Female 6:45 PM HYDRAULIC RUBBISH COMPACTOR MECHANIC Gender Identity Not on file Sexual Orientation Not on file Obstetrics History Last Filed Vital Signs Vital Sign Reading Time Taken Comments Blood Pressure 124/75 03/28/2024 9:10 AM HYDRAULIC RUBBISH COMPACTOR MECHANIC Pulse 66 03/28/2024 9:10 AM HYDRAULIC RUBBISH COMPACTOR MECHANIC Temperature 36.5 C (97.7 F) 03/28/2024 9:10 AM HYDRAULIC RUBBISH COMPACTOR MECHANIC Respiratory Rate 15 01/23/2022 11:05 AM HYDRAULIC RUBBISH COMPACTOR MECHANIC Oxygen Saturation 96% 03/07/2024 2:55 PM HYDRAULIC RUBBISH COMPACTOR MECHANIC Inhaled Oxygen Concentration - - Weight 68.6 kg (151 lb 3.2 oz) 03/28/2024 9:10 A M HYDRAULIC RUBBISH COMPACTOR MECHANIC Height 154.9 cm (5' 1 ) 03/28/2024 9:10 AM HYDRAULIC RUBBISH COMPACTOR MECHANIC Body Mass Index 28.57 03/28/2024 9:10 AM HYDRAULIC RUBBISH COMPACTOR MECHANIC Plan of Treatment Health Maintenance Due Date Last Done Comments Cervical Cancer Screening 1960 Depression Screening 1960 Hepatitis C Screening 1960 Osteoporosis Screening-Bone Density Scan 1960 Hepatitis B Screening 1976 Zoster Vaccine (1 of 2) 1977 Breast Cancer Screening-Mammogram 03/04/2020 03/04/2019, 02/24/2018, 02/23/2017, Additional history exists Fall Risk Assessment 01/23/2023 01/23/2022 DTaP/Tdap/Td Vaccine (2 - Td or Tdap) 03/25/2023 03/25/2013, 02/25/2006, 04/16/2003 Covid-19 Vaccine (3 - 2023-2 5 season) 2023 02/27/2021, 07/23/2020 Influenza Vaccine (#1) 2023 , 01/24/2020, 12/08/2018, Additional history exists Well Visit 65+ 12/26/2023 Pneumococcal vaccine 65+ (3 of 3 - PPSV23, PCV20 or PCV21) 10/16/2024 10/17/2019, 08/19/2019 Colon Cancer Screening-Colonoscopy 01/24/20322021 Procedures Procedure Name Priority Date/Time Associated Diagnosis Comments MCT - MOBILE CARDIAC TELEMETRY EVENT MONITOR Routine 03/28/2024 12:29 PM HYDRAULIC RUBBISH COMPACTOR MECHANIC Atrial fibrillation, unspecified type (HCC) EGFR Routine 03/28/2024 10:24 AM HYDRAULIC RUBBISH COMPACTOR MECHANIC Recurrent pneumonia DIFFERENTIAL AUTO Routine 03/28/2024 10: 24 AM HYDRAULIC RUBBISH COMPACTOR MECHANIC Recurrent pneumonia COMPREHENSIVE METABOLIC PANEL Routine 03/28/2024 10:24 AM HYDRAULIC RUBBISH COMPACTOR MECHANIC Recurrent pneumonia CBC WITH AUTO DIFFERENTIAL Routine 03/28/2024 10:24 AM HYDRAULIC RUBBISH COMPACTOR MECHANIC Recurrent pneumonia IGA Routine 03/28/2024 10:24 AM HYDRAULIC RUBBISH COMPACTOR MECHANIC Recurrent pneumonia IGG Routine 03/28/2024 10:24 AM HYDRAULIC RUBBISH COMPACTOR MECHANIC Recurrent pneumonia IGM Routine 03/28/2024 10:24 AM HYDRAULIC RUBBISH COMPACTOR MECHANIC Recurrent pneumonia IMMUNE COMPETENCE Routine 03/28/2024 10: 24 AM HYDRAULIC RUBBISH COMPACTOR MECHANIC Recurrent pneumonia STREP PNEUMONIAE ANTIBODY SEROTYPES Routine 03/28/2024 10:24 AM HYDRAULIC RUBBISH COMPACTOR MECHANIC Recurrent pneumonia TETANUS ANTIBODY, IGG Routine 03/28/2024 10:24 AM HYDRAULIC RUBBISH COMPACTOR MECHANIC Recurrent pneumonia PROTEIN ELECTROPHORESIS, WITH REFLEX, SERUM Routine 03/28/2024 10:24 AM HYDRAULIC RUBBISH COMPACTOR MECHANIC Recurrent pneumonia IMMUNOFIXATION, URINE Routine 03/28/2024 10:24 AM HYDRAULIC RUBBISH COMPACTOR MECHANIC Recurrent pneumonia COLONOSCOPY 01/23/2022 10:27 AM HYDRAULIC RUBBISH COMPACTOR MECHANIC from Last 3 Months or Most Recently Relevant to Health Maintenance Results * [facility] Mobile Cardiac Telemetry Event Monitor (03/28/2024 12:29 PM HYDRAULIC RUBBISH COMPACTOR MECHANIC) Anatomical Region Laterality Modality Electrocardiogra phy Narrative 03/28/2024 12:29 PM HYDRAULIC RUBBISH COMPACTOR MECHANIC AMBULATORY MURAL PAINTER REPORT Patient Name: Ely Wei Date of : 1960 Requesting Physician: KYA Date of interpretation: 03/28/24 Type of monitor : 30 day event monitor Date of the study/Enrollment period: Initiated on 02/18/2024 Indication: Atrial fibrillation Quality of the study: Adequate Interpretation: The basic cardiac rhythm is sinus with normal WA, QRS and QT intervals. The heart rate varies from a minimum of 49 to a maximum of 157 with an average rate of 75. There were no abnormalities of AV conduction recorded and there were no pauses identified. Supraventricular ectopic activity consists of PACs occurring occasionally sometimes frequently. There were a couple of runs of what appeared to be brief self-limited SVT that were labeled as AFib by the technology instructor. These are more consistent with SVT in my opinion than they are with atrial fib. There were no convincing episodes of atrial fibrillation Ventricular ectopic activity consists of infrequent PVCs occurring throughout the tracing with total PVC burden of 1%. There was one 5 beat run of nonsustained VT which was asymptomatic. Patient did not experience any symptoms record any symptomatic rhythm strips during this exam Conclusions: Sinus rhythm with normal heart rate variability Occasional atrial ectopic activity but no clear-cut or convincing episodes of atrial fibrillation, see discussion above Infrequent ventricular ectopic activity which did include 1 5 beat run of nonsustained VT occurring on 03/04/2024 at 5:25 a.m. this was asymptomatic Voice recognition software was used to complete this document, therefore, dual hose cementer variances may occur. Prateek Perez MD [facility] 03/28/24 Procedure Note Prateek Perez MD - 03/28/2024 AMBULATORY MURAL PAINTER REPORT Patient Name: Ely Wei Date of : 1960 Requesting Physician: KYA Date of interpretation: 03/28/24 Type of monitor : 30 day event monitor Date of the study/Enrollment period: Initiated on 02/18/2024 Indication: Atrial fibrillation Quality of the study: Adequate Interpretation: The basic cardiac rhythm is sinus with normal WA, QRS andQT intervals. The heart rate varies from a minimum of 49 to a maximum of157 with an average rate of 75. There were no abnormalities of AVconduction recorded and there were no pauses identified. Supraventricular ectopic activity consists of PACs occurring occasionallysometimes frequently. There were a couple of runs of what appeared to bebrief self-limited SVT that were labeled as AFib by the technology instructor.These are more consistent with SVT in my opinion than they are with atrialfib. There were no convincing episodes of atrial fibrillation Ventricular ectopic activity consists of infrequent PVCs occurringthroughout the tracing with total PVC burden of 1%. There was one 5 beatrun of nonsustained VT which was asymptomatic. Patient did not experience any symptoms record any symptomatic rhythmstrips during this exam Conclusions: Sinus rhythm with normal heart rate variability Occasional atrial ectopic activity but no clear-cut or convincing episodesof atrial fibrillation, see discussion above Infrequent ventricular ectopic activity which did include 1 5 beat run ofnonsustained VT occurring on 03/04/2024 at 5:25 a.m. this wasasymptomatic Voice recognition software was used to complete this document, therefore,dual hose cementer variances may occur. Prateek Perez MD FAC 03/28/24 us Jose Montez MD [facility] C[facility] PROCEDURES F inal Result * eGFR (03/28/2024 10:24 AM HYDRAULIC RUBBISH COMPACTOR MECHANIC) eGFR >90 >=60 mL/min/1. 73 m2 Comment: Interpretive Data Reference Interval Normal >/= 90 mL/min/1.73m2 Mildly decreased* 60 - 89 mL/min/1.73m2 Mildly to moderately decreased 45 - 59 mL/min/1.73m2 Moderately to severely decreased 30 - 44 mL/min/1.73m2 Severely decreased 15 - 29 mL/min/1.73m2 Kidney Failure < 15 mL/min/1.73m2 *Relative to young adult level Estimated glomerular filtration rate is determined by the 2020 CKD-EPI equation recommended by the National Kidney Foundation (A Unifying Approach to GFR Estimation: Recommendations of the NKF-ASK Task Force on Reassessing the Inclusion of Race in Diagnosing Kidney Disease, JASN 202). The CKD-EPI equation should not be used for patients with unstable renal function and has not been validated in children and those over 70. Current interpretive data was last reviewed 2021. Blood 03/28/2024 10:2 4 AM HYDRAULIC RUBBISH COMPACTOR MECHANIC 03/28/2024 11:51 AM HYDRAULIC RUBBISH COMPACTOR MECHANIC us Andrzej Wyman MD LAB BLOOD ORDERABLES Fi nal Result [facility] Department [place] [address] * Differential, auto (03/28/2024 10:24 AM HYDRAULIC RUBBISH COMPACTOR MECHANIC) Neutrophil abs 4.2 1.5 - 6.5 K/cumm Imm gran abs 0.0 0.0 - 0.1 K/cumm [facility] Lymphocyte abs 1.9 0.8 - 3.3 K/cumm [facility] Monocyte abs 0.5 0.2 - 0.8 K/cumm [facility] Eosinophil abs 0.1 0.0 - 0.5 K/cumm [facility] Basophil abs 0.1 0.0 - 0.1 K/cumm [facility] Neutrophil pct 61.7 % [facility] Comment: Interpretive Data Percent cell count reference ranges are not reported, since discordance with absolute values may lead to misinterpretation of CBC data. Current Interpretive Data was last revised on 2017. Imm gran pct 0.4 % [facility] Comment: Interpretive Data Percent cell count reference ranges are not reported, since discordance with absolute values may lead to misinterpretation of CBC data. Current Interpretive Data was last revised on 2017. Lymphocyte pct 27.7 % [facility] Comment: Interpretive Data Percent cell count reference ranges are not reported, since discordance with absolute values may lead to misinterpretation of CBC data. Current Interpretive Data was last revised on 2017. Monocyte pct 7.6 % [facility] Comment: Interpretive Data Percent cell count reference ranges are not reported, since discordance with absolute values may lead to misinterpretation of CBC data. Current Interpretive Data was last revised on 2017. Eosinophil pct 1.7 % [facility] Comment: Interpretive Data Percent cell count reference ranges are not reported, since discordance with absolute values may lead to misinterpretation of CBC data. Current Interpretive Data was last revised on 2017. Basophil pct 0.9 % [facility] Comment: Interpretive Data Percent cell count reference ranges are not reported, since discordance with absolute values may lead to misinterpretation of CBC data. Current Interpretive Data was last revised on 2017. Blood 03/28/2024 10:2 4 AM HYDRAULIC RUBBISH COMPACTOR MECHANIC 03/28/2024 11:49 AM HYDRAULIC RUBBISH COMPACTOR MECHANIC Andrzej Wyman MD LAB BLOOD ORDERABLES Fi nal Result [facility] [place] [address] * Immune competence (03/28/2024 10:24 AM HYDRAULIC RUBBISH COMPACTOR MECHANIC) [facility] CD3 pct 75 60 - 88 % CD3 Absolute 1,424 661 - 1,963 cells/mcL [facility] CD4 pct 45 31 - 64 % [facility] CD4 Absolute 858 365 - 1,294 cells/mcL [facility] CD8 pct 30 12 - 40 % [facility] CD8 Absolute 568 187 - 781 cells/mcL [facility] CD19 pct 17 6 - 25 % [facility] CD19 Absolute 312 86 - 488 cells/mcL [facility] [id number] pct 7 5 - 25 % [facility] [id number] Absolute 136 76 - 467 cells/mcL [facility] CD4/CD8 ratio 1.5 0.9 - 4.4 [facility] Blood 03/28/2024 10:2 4 AM HYDRAULIC RUBBISH COMPACTOR MECHANIC 03/28/2024 11:49 AM HYDRAULIC RUBBISH COMPACTOR MECHANIC Andrzej Wyman MD LAB BLOOD [place] [address] * Immunofixation, urine (03/28/2024 10:24 AM HYDRAULIC RUBBISH COMPACTOR MECHANIC) [facility] Immunofixation, Ur Please see comment Comment: NO PARAPROTEIN DETECTED Reviewed and signed by Renny Anaya MD, PhD 03/30/2024 Urine 03/28/2024 10:2 4 AM HYDRAULIC RUBBISH COMPACTOR MECHANIC 03/28/2024 12:06 PM HYDRAULIC RUBBISH COMPACTOR MECHANIC Andrzej Wyman MD LAB URINE ORDERABLES Fi nal Result [facility] [place] [address] * CBC with auto differential (03/28/2024 10:24 AM HYDRAULIC RUBBISH COMPACTOR MECHANIC) Pathologist [facility] WBC 6.9 3.8 - 9.9 K/cumm Hgb 12.5 11.9 - 15.5 g/dL [facility] Hct 38.7 35.6 - 45.5 % [facility] Plt 361 150 - 400 K/cumm [facility] MPV 10.2 9.1 - 12.3 fL [facility] RBC 4.41 3.90 - 5.20 M/cumm [facility] MCV 87.8 81.3 - 96.4 fL [facility] MCH 28.3 27.1 - 33.3 pg [facility] MCHC 32.3 32.3 - 35.7 g/dL [facility] RDW CV 14.1 11.1 - 14.9 % [facility] RDW SD 45.6 35.7 - 48.1 fL [facility] NRBC abs 0.00 0.00 - 0.01 K/cumm [facility] Blood 03/28/2024 10:2 4 AM HYDRAULIC RUBBISH COMPACTOR MECHANIC 03/28/2024 11:49 AM HYDRAULIC RUBBISH COMPACTOR MECHANIC Andrzej Wyman MD LAB BLOOD ORDERABLES nal Result [facility] Department [place] [address] * Tetanus antibody, IgG (03/28/2024 10:24 AM HYDRAULIC RUBBISH COMPACTOR MECHANIC) Pathologist [facility] Tetanus IgG Ab Positive [facility] Comment: REFERENCE VALUE Vaccinated: Positive (>= 0.01 IU/mL) Unvaccinated: Negative (< 0.01 IU/mL) Tetanus IgG Value 1.61 IUnits/mL [facility] Comment: ADDITIONAL INFORMATION This test was developed and its performance characteristics determined by [facility] in a manner consistent with CLIA requirements. This test has not been cleared or approved by the U.S. Food and Drug Administration. Test Performed by: [facility] [address] [place] [address] Data Control Clerk Supervisor: Vandana Simons Ph.D.; CLIA# [id number] Blood 03/28/2024 10:2 4 AM HYDRAULIC RUBBISH COMPACTOR MECHANIC 03/28/2024 2:06 PM HYDRAULIC RUBBISH COMPACTOR MECHANIC us Andrzej Wyman MD LAB BLOOD ORDERABLES Fi nal Result [facility] Department [place] [address] [facility] * Strep pneumoniae antibody serotypes (03/28/2024 10:24 AM HYDRAULIC RUBBISH COMPACTOR MECHANIC) S. pneumo Type 1 (1) 1.7 >=1.0 mcg/mL [facility] S. pneumo Type 2 (2) 4.5 >=1.0 mcg/mL [facility] S. pneumo Type 3 (3) 0.6 >=1.0 mcg/mL [facility] S. pneumo Type 4 (4) 0.8 >=1.0 mcg/mL [facility] S. pneumo Type 5 (5) 0.4 >=1.0 mcg/mL [facility] S. pneumo Type 8 (8) 2.1 >=1.0 mcg/mL [facility] S. pneumo Type 9N (9) 7.1 >=1.0 mcg/mL [facility] S. pneumo Type 12F (12) 0.9 >=1.0 mcg/mL [facility] S. pneumo Type 14 (14) 0.8 >=1.0 mcg/mL [facility] S. pneumo Type 17F (17) 3.8 >=1.0 mcg/mL [facility] S. pneumo Type 19F (19) 2.5 >=1.0 mcg/mL [facility] S. pneumo Type 20 (20) 2.5 >=1.0 mcg/mL [facility] S. pneumo Type 22F (22) 1.4 >=1.0 mcg/mL [facility] S. pneumo Type 23F (23) 1.1 >=1.0 mcg/mL [facility] S. pneumo Type 6B (26) 0.7 >=1.0 mcg/mL [facility] S. pneumo Type 10A (34) 6.0 >=1.0 mcg/mL [facility] S. pneumo Type 11A (43) 1.3 >=1.0 mcg/mL [facility] S. pneumo Type 7F (51) 1.0 >=1.0 mcg/mL [facility] S. pneumo Type 15B (54) 2.0 >=1.0 mcg/mL [facility] S. pneumo Type 18C (56) 0.5 >=1.0 mcg/mL [facility] S. pneumo Type 19A (57) 1.3 >=1.0 mcg/mL [facility] S. pneumo Type 9V (68) 8.1 >=1.0 mcg/mL [facility] S. pneumo Type 33F (70) 5.0 >=1.0 mcg/mL [facility] Pneum Ab 23 interp See Footnote [place] Comment: Evaluation of the immune response following pneumococcal vaccination can be assessed by measuring serotype-specific Streptococcus pneumonia IgG antibodies. Either of the following conditions is consistent with a normal response to Streptococcus pneumonia vaccination: 1. When comparing pre and post-vaccination samples, antibody concentrations increased by at least 2-fold for either >50% of serotypes in children <6 years of age or >70% of serotypes for individuals >6 years of age. 2. In either a pre- or post-vaccination sample, antibody concentrations >=1.0 mcg/mL for either >50% of serotypes for children <6 years of age or >70% of serotypes for individuals >6 years of age. Results >=1.0 mcg/mL or those showing a >=2-fold change are consistent with an immune response, but are not necessarily sufficient to provide protection against infection. ADDITIONAL INFORMATION This test was developed and its performance characteristics determined by [facility] in a manner consistent with CLIA requirements. This test has not been cleared or approved by the U.S. Food and Drug Administration. Test Performed by: [facility] [address] [place] [address] Data Control Clerk Supervisor: Vandana Simons Ph.D.; CLIA# [id number] Blood 03/28/2024 10:2 4 AM HYDRAULIC RUBBISH COMPACTOR MECHANIC 03/28/2024 2:06 PM HYDRAULIC RUBBISH COMPACTOR MECHANIC Andrzej Wyman MD LAB BLOOD ORDERABLES Fi nal Result Performing Organization Address City/[facility] Co de Phone Number [facility] Department [place] [address] [facility] * Protein electrophoresis with reflex, serum (03/28/2024 10:24 AM HYDRAULIC RUBBISH COMPACTOR MECHANIC) Protein, sr 7.9 6.2 - 8.2 g/dL Albumin 4.3 3.2 - 5.0 g/dL [facility] Alpha-1 globulin 0.3 0.2 - 0.4 g/dL [facility] Alpha-2 globulin 0.9 0.5 - 1.0 g/dL [facility] Beta-1 globulin 0.4 0.3 - 0.6 g/dL [facility] Beta-2 globulin 0.3 0.2 - 0.6 g/dL [facility] Gamma globulin 1.7 0.5 - 1.7 g/dL [facility] SPEP interp Please see comment [facility] Comment: No apparent monoclonal peak Polyclonal increase in gamma globulins Reviewed and signed by Renny Anaya MD, PhD 03/29/2024 Blood 03/28/2024 10:2 4 AM HYDRAULIC RUBBISH COMPACTOR MECHANIC 03/28/2024 11:49 AM HYDRAULIC RUBBISH COMPACTOR MECHANIC Andrzej Wyman MD LAB BLOOD ORDERABLES Fi nal Result Performing Organization Address City/[facility]/ZIP Co de Phone Number [facility] [place] [address] * (ABNORMAL) IgA (03/28/2024 10:24 AM HYDRAULIC RUBBISH COMPACTOR MECHANIC) Immunoglobulin A <50(L) 70 - 400 mg/dL Blood 03/28/2024 10:2 4 AM HYDRAULIC RUBBISH COMPACTOR MECHANIC 03/28/2024 11:48 AM HYDRAULIC RUBBISH COMPACTOR MECHANIC Andrzej Wyman MD LAB BLOOD [place] [address] * IgM (03/28/2024 10:24 AM HYDRAULIC RUBBISH COMPACTOR MECHANIC) Immunoglobulin M 77 40 - 230 mg/dL Blood 03/28/2024 10:2 4 AM HYDRAULIC RUBBISH COMPACTOR MECHANIC 03/28/2024 11:48 AM HYDRAULIC RUBBISH COMPACTOR MECHANIC Andrzej Wyman MD LAB BLOOD ORDERABLES Fi nal Result Performing Organization Address City/[facility]/ZIP Co de Phone Number [facility] Department [place] [address] * (ABNORMAL) IgG (03/28/2024 10:24 AM HYDRAULIC RUBBISH COMPACTOR MECHANIC) Immunoglobulin G 1,931(H) 700 - 1,600 mg/dL Blood 03/28/2024 10:2 4 AM HYDRAULIC RUBBISH COMPACTOR MECHANIC 03/28/2024 11:48 AM HYDRAULIC RUBBISH COMPACTOR MECHANIC Andrzej Wyman MD LAB BLOOD ORDERABLES Fi nal Result [facility] [place] [address] * Comprehensive metabolic panel (03/28/2024 10:24 AM HYDRAULIC RUBBISH COMPACTOR MECHANIC) Sodium 140 135 - 145 mmol/L Potassium, pl 4.2 3.3 - 4.9 mmol/L [facility] Chloride 102 97 - 110 mmol/L [facility] CO2 29 22 - 32 mmol/L [facility] Anion gap 9 2 - 15 mmol/L [facility] BUN 23 6 - 25 mg/dL [facility] Creatinine 0.73 0.60 - 1.10 mg/dL [facility] Glucose 85 70 - 199 mg/dL [facility] Comment: Interpretive Data Fasting glucose >/= 126 mg/dl is diagnostic for diabetes. Fasting is defined as no caloric intake for at least 8 hours. Fasting glucose between 100 mg/dl to 125 mg/dl is diagnostic of prediabetes. In a patient with classic symptoms of hyperglycemia or hyperglycemic crisis, a random glucose >/= 200 mg/dl is diagnostic for diabetes. In the absence of unequivocal hyperglycemia, results should be confirmed by repeat testing. The classification and Diagnosis of Diabetes Diabetes Care 2021; 46: S19-S40. Current interpretive data was last revised 2022. Calcium 9.5 8.5 - 10.3 mg/dL [facility] Bilirubin, total 0.4 0.1 - 1.2 mg/dL [facility] Protein, pl 8.3 6.5 - 8.5 g/dL [facility] Albumin 4.5 3.5 - 5.0 g/dL [facility] Alk phos 80 40 - 130 Units/L [facility] ALT 33 7 - 45 Units/L [facility] AST 25 10 - 45 Units/L [facility] Blood 03/28/2024 10:2 4 AM HYDRAULIC RUBBISH COMPACTOR MECHANIC 03/28/2024 11:48 AM HYDRAULIC RUBBISH COMPACTOR MECHANIC Andrzej Wyman MD LAB BLOOD ORDERABLES Fi nal Result [facility] Department [place] [address] * COLONOSCOPY (01/23/2022 10:27 AM HYDRAULIC RUBBISH COMPACTOR MECHANIC) Anatomical Region Laterality Modality Other Narrative Procedure Note Ez Agarwal MD - 01/23/2022 10:27 AM CST [facility] Patient Name: Ely Wei Procedure Date: 01/23/2022 10:27AM Date of : 1960 Admit Type: Outpatient Age: 61 Gender: Female Attending MD: Ez Agarwal M.D. Room: [facility] ENDOSCOPY ROOM 8 Note Status: Finalized Procedure: Colonoscopy Indications: Follow-up of microscopic colitis Referring MD: Ez Agarwal M.D. Providers: Ez Agarwal M.D. Medicines: Monitored Anesthesia Care Complications: No immediate complications. Estimated Blood Loss: Estimated blood loss: none. Procedure: Pre-Anesthesia Assessment: - Immediately prior to administration ofmedications, the patient was re-assessed for adequacy to receive sedatives. - The risks and benefits of the procedure and the sedation options and risks were discussed with the patient. All questions were answered and informed consent was obtained. The benefits, risks and alternatives of theprocedure and sedation were discussed and informed consentwas obtained. All questions were answered. Please referto the signed informed consent document in the medical record. The scope was passed under direct vision.The [id number] endoscope was introduced through the anus and advanced to the cecum, identified by appendiceal orifice and ileocecal valve. The colonoscopy was performed without difficulty. The patient tolerated the procedure well. The qualityof the bowel preparation was adequate. The bowel preparation used was GoLYTELY. Findings: The perianal and digital rectal examinations were normal. The colon (entire examined portion) appeared normal. This wasbiopsied with a cold forceps for histology. The terminal ileum was normal up to 5 cm Impression: - The entire examined colon is normal. Biopsied. Recommendation: - Await pathology results. Electronically Signed by Ez Agarwal M.D. Ez Agarwal M.D. 01/23/2022 10:42:40 AM . Number of Addenda: 0 Note Initiated On: 01/23/2022 10:27 AM Recognized by the [employer] for promoting quality in endoscopy Ez Agarwal MD ENDOSCOPY PROCEDURES F inal Result from Last 3 Months or Most Recently Relevant to Health Maintenance Insurance MEDICARE [employer] MEDICARE SUPPLEMENT MEDICARE [employer] CHOICE MEDICARE PPO Advance Directives For more information, please contact: [phone] * Full Code (Latest Code Status on File) Date Activated Date Inactivated Comments 01/23/2022 9:55 AM 01/23/2022 3:41 PM Care Teams Quarry Supervisor Relationship Specialty Start Date End Date Mervin Jay DO PCP - General Internal Medicine 10/21/21
--- OUTSIDE RECORDS SUMMARY | 2024-05-18 07:47 | XMS_ITS | Encounter Summary ---
Author Organization [facility] Address 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 Gender Identity Not on file Sexual Orientation Not on file documented as of this encounter Plan of Treatment Upcoming Encounters Date Type Department Care Team (Late st Contact Info) Description 09/08/2024 12:00 PM CDT Office Visit [facility] Heart and Vascular At [address] [place] [address] Randal Cooley MD [address] [place] [address] [address] [place] [address] 10/27/2024 10:00 AM CDT Office Visit [facility] Heart and Vascular At [address] [place] [address] Randal Cooley MD [address] [place] [address] [address] [place] [address] 10/28/2024 9:30 AM CDT Office Visit [facility] Urology [facility] [address] [place] [address] [place] [address] [facility] [address] [place] [address] documented as of this encounter Visit Diagnoses Diagnosis Other chest pain- Primary documented in this encounter Additional Health Concerns Infection Onset Date Last Indicated Resolved Time R/O COVID-19 11/08/2019 11/08/2019 11/11/2019 12:3 1 AM CDT R/O COVID-19 02/01/2020 02/01/2020 02/03/2020 2:00 AM BUSINESS PROJECT ANALYST documented as of this encounter Care Teams Software Tester Relationship Specialty Start Date End Date Jina Banda MD PCP - General Internal Medicine 06/20/16 12/03/21 documented as of this encounter
--- OUTSIDE RECORDS SUMMARY | 2024-05-18 07:47 | XMS_ITS | Encounter Summary ---
Author Organization [facility] Address 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 Gender Identity Not on file Sexual Orientation Not on file documented as of this encounter Plan of Treatment Upcoming Encounters Date Type Department Care Team (Late st Contact Info) Description 09/08/2024 12:00 PM CDT Office Visit [facility] Heart and Vascular At [address] [place] [phone] Randal Cooley MD [address] [place] [address] [address] [place] [address] 10/27/2024 10:00 AM CDT Office Visit [facility] Heart and Vascular At [address] [place] [address] Randal Cooley MD [address] [place] [address] [address] [place] [address] 10/28/2024 9:30 AM CDT Office Visit [facility] Urology [facility] [address] [facility] [address] [place] [address] [place] [address] [facility] [address] [place] [address] documented as of this encounter Visit Diagnoses Diagnosis Other screening mammogram- Primary documented in this encounter Additional Health Concerns Infection Onset Date Last Indicated Resolved Time R/O COVID-19 11/08/2019 11/08/2019 11/11/2019 12:3 1 AM CDT R/O COVID-19 02/01/2020 02/01/2020 02/03/2020 2:00 AM STAMP PAD FINISHER documented as of this encounter Care Teams Financial Services Specialist Relationship Specialty Start Date End Date Jina Banda MD PCP - General Internal Medicine 06/20/16 12/03/21 documented as of this encounter
--- OUTSIDE RECORDS SUMMARY | 2024-05-18 07:47 | XMS_ITS | Encounter Summary ---
Author Organization [facility] Address 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 Heart and Vascular At [address] [place] [address] Randal Cooley MD [address] [place] [address] [address] [place] [address] 10/27/2024 10:00 AM CDT Office Visit [facility] Heart and Vascular At [address] [place] [address] Randal Cooley MD [address] [place] [address] [address] [place] [address] 10/28/2024 9:30 AM CDT Office Visit [facility] Urology [address] [place] [address] [place] [address] [facility] [address] [place] [address] documented as of this encounter Visit Diagnoses Diagnosis Acute maxillary sinusitis- Primary documented in this encounter Additional Health Concerns Infection Onset Date Last Indicated Resolved Time R/O COVID-19 11/08/2019 11/08/2019 11/11/2019 12:3 1 AM CDT R/O COVID-19 02/01/2020 02/01/2020 02/03/2020 2:[address] LOCKSMITH documented as of this encounter Care Teams Customs Brokerage Agent Relationship Specialty Start Date End Date Jina Banda MD PCP - General Internal Medicine 06/20/16 12/03/21 documented as of this encounter
--- OUTSIDE RECORDS SUMMARY | 2024-05-18 07:47 | XMS_ITS | Encounter Summary ---
Author Organization [facility] Address [address] [place] [address] Care Team Providers Care Dampproofer Name Role Phone Jina Banda MD Primary Care Provider Unav ailable Encounter Details Date Type Department Care Team (Late st Contact Info) Description 04/15/2005 Outpatient Historical [facility] [address] [phone] Jack Thompson MD [address] [place], [place] [address], [place] [phone] Social History Tobacco Use Types Packs/Day Years Used Date Smoking Tobacco: Never Assessed Comments Unknown Sex and Gender Information Value Date Recorded Sex Assigned at Not on file 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 Gender Identity Not on file Sexual Orientation Not on file documented as of this encounter Plan of Treatment Upcoming Encounters Date Type Department Care Team (Late st Contact Info) Description 09/08/2024 12:00 PM CDT Office Visit [facility] Heart and Vascular At [address] [place] [address] Randal Cooley MD [address] [place] [address] [address] [place] [address] 10/27/2024 10:00 AM CDT Office Visit [facility] Heart and Vascular At [address] [place] [address] Randal Cooley MD [address] [place] [address] [address] [place] [address] 10/28/2024 9:30 AM CDT Office Visit [facility] Urology [facility] [address] [facility] [address] [place] [address] [place] [address] [facility] [address] [place] [address] documented as of this encounter Visit Diagnoses Not on filedocumented in this encounter Additional Health Concerns Infection Onset Date Last Indicated Resolved Time R/O COVID-19 11/08/2019 11/08/2019 11/11/2019 12:3 1 AM CDT R/O COVID-19 02/01/2020 02/01/2020 02/03/2020 2:00 AM FOOD AND BEVERAGE SERVER documented as of this encounter Care Teams Dampproofer Relationship Specialty Start Date End Date Jina Banda MD PCP - General Internal Medicine 06/20/16 12/03/21 documented as of this encounter
--- OUTSIDE RECORDS SUMMARY | 2024-05-18 07:47 | XMS_ITS | Referral Summary ---
Author Organization [facility] Address [address] [place] [address] Care Team Providers Care Twister Operator Name Role Phone Mervin Jay DO Primary Care Provider [phone]- [phone] Encounters Date Type Department Care Team Description 03/28/2024 10:15 AM PHOTO COLORER Lab [facility] [address] [place] [address] Recurrent pneumonia 03/28/2024 9:10 AM PHOTO COLORER Office Visit [facility] Allergy and Immunology [address] [place] [address] Andrzej Wyman MD Recurrent pneumonia (Primary Dx); IgA deficiency (HCC) 03/07/2024 3:00 PM PHOTO COLORER Office Visit [facility] Gastroenterology [address] 2nd [address] [place] [address] Katelyn Toure NP Lymphocytic colitis (Primary Dx) 02/18/2024 10:30 AM PHOTO COLORER Ancillary Procedure [facility] Cardiology [address] [place] [address] Atrial fibrillation, unspecified type (HCC) from Last 3 Months Allergies Active Allergy Reactions Criticality Noted Date [...] HOURS NEEDED FOR NAUSEA AND VOMITING 03/02/20 Active Klor-Con M20 20 mEq CR tablet Take 1 tablet (20 mEq total) by mouth as needed 03/02/20 Active Saccharomyces boulardii (FLORASTOR) 250 mg capsule Take 1 capsule (250 mg total) by mouth 2 (two) times a day 02/19/20 Active venlafaxine XR (EFFEXOR-XR) 75 mg 24 hr capsule Take 1 capsule (75 mg total) by mouth daily Active lisinopriL (PRINIVIL,ZESTRIL) 40 mg tablet Take 1 tablet (40 mg total) by mouth daily 02/17/20 Active Active Problems Problem Noted Date Diagnosed Date Lymphocytic colitis 05/04/2022 Chronic diarrhea 01/06/2022 Overview (01/06/2022): Added automatically from request for surgery [id number] Social History Tobacco Use Types Packs/Day Years [...] on file Legal Sex Female 6:45 PM PHOTO COLORER Gender Identity Not on file Sexual Orientation Not on file Last Filed Vital Signs Vital Sign Reading Time Taken Comments Blood Pressure 124/75 03/28/2024 9:10 AM PHOTO COLORER Pulse 66 03/28/2024 9:10 AM PHOTO COLORER Temperature 36.5 C (97.7 F) 03/28/2024 9:10 AM PHOTO COLORER Respiratory Rate 15 01/23/2022 11:05 AM PHOTO COLORER Oxygen Saturation 96% 03/07/2024 2:55 PM PHOTO COLORER Inhaled Oxygen Concentration - - Weight 68.6 kg (151 lb 3.2 oz) 03/28/2024 9:10 A M PHOTO COLORER Height 154.9 cm (5' 1 ) 03/28/2024 9:10 AM PHOTO COLORER Body Mass Index 28.57 03/28/2024 9:10 AM PHOTO COLORER Plan of Treatment Not on file Procedures Procedure Name Priority Date/Time Associated Diagnosis Comments MCT - MOBILE CARDIAC TELEMETRY EVENT MONITOR Routine 03/28/2024 12:29 PM PHOTO COLORER Atrial fibrillation, unspecified type (HCC) EGFR Routine 03/28/2024 10:24 AM PHOTO COLORER Recurrent pneumonia DIFFERENTIAL AUTO Routine 03/28/2024 10: 24 AM PHOTO COLORER Recurrent pneumonia COMPREHENSIVE METABOLIC PANEL Routine 03/28/2024 10:24 AM PHOTO COLORER Recurrent pneumonia CBC WITH AUTO DIFFERENTIAL Routine 03/28/2024 10:24 AM PHOTO COLORER Recurrent pneumonia IGA Routine 03/28/2024 10:24 AM PHOTO COLORER Recurrent pneumonia IGG Routine 03/28/2024 10:24 AM PHOTO COLORER Recurrent pneumonia IGM Routine 03/28/2024 10:24 AM PHOTO COLORER Recurrent pneumonia IMMUNE COMPETENCE Routine 03/28/2024 10: 24 AM PHOTO COLORER Recurrent pneumonia STREP PNEUMONIAE ANTIBODY SEROTYPES Routine 03/28/2024 10:24 AM PHOTO COLORER Recurrent pneumonia TETANUS ANTIBODY, IGG Routine 03/28/2024 10:24 AM PHOTO COLORER Recurrent pneumonia PROTEIN ELECTROPHORESIS, WITH REFLEX, SERUM Routine 03/28/2024 10:24 AM PHOTO COLORER Recurrent pneumonia IMMUNOFIXATION, URINE Routine 03/28/2024 10:24 AM PHOTO COLORER Recurrent pneumonia COLONOSCOPY 01/23/2022 10:27 AM PHOTO COLORER from Last 3 Months or Most Recently Relevant to Health Maintenance Results * MCT Mobile Cardiac Telemetry Event Monitor (03/28/2024 12:29 PM PHOTO COLORER) Anatomical Region Laterality Modality Electrocardiogra phy Narrative 03/28/2024 12:29 PM PHOTO COLORER AMBULATORY SHOT HOLE SHOOTER REPORT Patient Name: Ely Wei Date of : 1960 Requesting Physician: KYA Date of interpretation: 03/28/24 Type of monitor : 30 day event monitor Date of the study/Enrollment period: Initiated on 02/18/2024 Indication: Atrial fibrillation Quality of the study: Adequate Interpretation: The basic cardiac rhythm is sinus with normal MN, QRS and QT intervals. The heart rate [...] that were labeled as AFib by the manager monitoring. These are more consistent with SVT in [...] was used to complete this document, therefore, hydraulic modeling engineer variances may occur. Prateek Perez MD [facility] 03/28/24 Procedure Note Prateek Perez MD - 03/28/2024 AMBULATORY SHOT HOLE SHOOTER REPORT Patient Name: Ely Wei Date of : 1960 Requesting Physician: KYA Date of interpretation: 03/28/24 Type of monitor : 30 day event monitor Date of the study/Enrollment period: Initiated on 02/18/2024 Indication: Atrial fibrillation Quality of the study: Adequate Interpretation: The basic cardiac rhythm is sinus with normal MN, QRS andQT intervals. The heart rate varies [...] that were labeled as AFib by the manager monitoring.These are more consistent with SVT in my [...] occurring on 03/04/2024 at 5:25 a.m. this [employer] Voice recognition software was used to complete this document, therefore,hydraulic modeling engineer variances may occur. Prateek Perez MD [facility] 03/28/24 us Jose Montez MD [facility] PROCEDURES F inal Result * eGFR (03/28/2024 10:24 AM PHOTO COLORER) eGFR >90 >=60 mL/min/1. 73 m2 Comment: [...] of Race in Diagnosing Kidney Disease, JASN 2020). The CKD-EPI equation should not be used for patients with unstable renal function and has not been validated in children and those over 70. Current interpretive data was last reviewed 2021. Blood 03/28/2024 10:2 4 AM PHOTO COLORER 03/28/2024 11:51 AM PHOTO COLORER Andrzej Wyman MD LAB BLOOD ORDERABLES Fi nal Result [facility] [place] [address] * Differential, auto (03/28/2024 10:24 AM PHOTO COLORER) Neutrophil abs 4.2 1.5 - 6.5 K/cumm Imm gran abs 0.0 0.0 - 0.1 K/cumm [facility] Lymphocyte abs 1.9 0.8 - 3.3 K/cumm [facility] Monocyte abs 0.5 0.2 - 0.8 K/cumm [facility] Eosinophil abs 0.1 0.0 - 0.5 K/cumm [facility] Basophil abs 0.1 0.0 - 0.1 K/cumm [facility] Neutrophil pct 61.7 % [facility] Comment: Interpretive Data Percent cell count reference ranges are not reported, since discordance with absolute values may lead to misinterpretation of CBC data. Current Interpretive Data was last revised on 2017. Imm gran pct 0.4 % [facility] Comment: Interpretive Data Percent cell count reference ranges are not reported, since discordance with absolute values may lead to misinterpretation of CBC data. Current Interpretive Data was last revised on 2017. Lymphocyte pct 27.7 % [facility] Comment: Interpretive Data Percent cell count reference ranges are not reported, since discordance with absolute values may lead to misinterpretation of CBC data. Current Interpretive Data was last revised on 2017. Monocyte pct 7.6 % [facility] Comment: Interpretive Data Percent cell count reference ranges are not reported, since discordance with absolute values may lead to misinterpretation of CBC data. Current Interpretive Data was last revised on 2017. Eosinophil pct 1.7 % [facility] Comment: Interpretive Data Percent cell count reference ranges are not reported, since discordance with absolute values may lead to misinterpretation of CBC data. Current Interpretive Data was last revised on 2017. Basophil pct 0.9 % [facility] Comment: Interpretive Data Percent cell count reference ranges are not reported, since discordance with absolute values may lead to misinterpretation of CBC data. Current Interpretive Data was last revised on 2017. Blood 03/28/2024 10:2 4 AM PHOTO COLORER 03/28/2024 11:49 AM PHOTO COLORER Andrzej Wyman MD LAB BLOOD ORDERABLES Fi nal Result Performing Organization Address City/[facility]/ZIP Co de Phone Number [facility] [email or web address] [place] [address] * Immune competence (03/28/2024 10:24 AM PHOTO COLORER) CD3 pct 75 60 - 88 % CD3 Absolute 1,424 661 - 1,963 cells/mcL [facility] CD4 pct 45 31 - 64 % [facility] CD4 Absolute 858 365 - 1,294 cells/mcL [facility] CD8 pct 30 12 - 40 % [facility] CD8 Absolute 568 187 - 781 cells/mcL [facility] CD19 pct 17 6 - 25 % [facility] CD19 Absolute 312 86 - 488 cells/mcL [facility] [id number] pct 7 5 - 25 % [facility] [id number] Absolute 136 76 - 467 cells/mcL [facility] CD4/CD8 ratio 1.5 0.9 - 4.4 [facility] Blood 03/28/2024 10:2 4 AM PHOTO COLORER 03/28/2024 11:49 AM PHOTO COLORER Andrzej Wyman MD LAB BLOOD ORDERABLES Fi nal Result Performing Organization Address City/[facility]/ZIP Co de Phone Number [facility] [email or web address] [address] * Immunofixation, urine (03/28/2024 10:24 AM PHOTO COLORER) [facility] Immunofixation, Ur Please see comment Comment: NO PARAPROTEIN DETECTED Reviewed and signed by Renny Anaya MD, PhD 03/30/2024 Urine 03/28/2024 10:2 4 AM PHOTO COLORER 03/28/2024 12:06 PM PHOTO COLORER Andrzej Wyman MD LAB URINE ORDERABLES Fi nal Result Performing Organization Address City/[facility]/ZIP Co de Phone Number [facility] [email or web address] [place] [address] * CBC with auto differential (03/28/2024 10:24 AM PHOTO COLORER) [facility] WBC 6.9 3.8 - 9.9 K/cumm Hgb 12.5 11.9 - 15.5 g/dL [facility] Hct 38.7 35.6 - 45.5 % [facility] Plt 361 150 - 400 K/cumm [facility] MPV 10.2 9.1 - 12.3 fL [facility] RBC 4.41 3.90 - 5.20 M/cumm [facility] MCV 87.8 81.3 - 96.4 fL [facility] MCH 28.3 27.1 - 33.3 pg [facility] MCHC 32.3 32.3 - 35.7 g/dL [facility] RDW CV 14.1 11.1 - 14.9 % [facility] RDW SD 45.6 35.7 - 48.1 fL [facility] NRBC abs 0.00 0.00 - 0.01 K/cumm [facility] Blood 03/28/2024 10:2 4 AM PHOTO COLORER 03/28/2024 11:49 AM PHOTO COLORER Andrzej Wyman MD LAB BLOOD ORDERABLES Fi nal Result Performing Organization Address City/[facility]/ZIP Co de Phone Number [facility] Department [place] [address] * Tetanus antibody, IgG (03/28/2024 10:24 AM PHOTO COLORER) Tetanus IgG Ab Positive [facility] Comment: REFERENCE VALUE Vaccinated: Positive (>= 0.01 IU/mL) Unvaccinated: Negative (< 0.01 IU/mL) Tetanus IgG Value 1.61 IUnits/mL [facility] Comment: ADDITIONAL INFORMATION This test was developed and its performance characteristics determined by [facility] in a manner consistent with CLIA requirements. This test has not been cleared or approved by the U.S. Food and Drug Administration. Test Performed by: [place] [address] Truck Trailer Mechanic: Vandana Simons Ph.D.; CLIA# [id number] Blood 03/28/2024 10:2 4 AM PHOTO COLORER 03/28/2024 2:06 PM PHOTO COLORER Andrzej Wyman MD LAB BLOOD ORDERABLES Fi nal Result [facility] [place] [address] [facility] * Strep pneumoniae antibody serotypes (03/28/2024 10:24 AM PHOTO COLORER) S. pneumo Type 1 (1) 1.7 >=1.0 mcg/mL [facility] S. pneumo Type 2 (2) 4.5 >=1.0 mcg/mL [facility] S. pneumo Type 3 (3) 0.6 >=1.0 mcg/mL [facility] S. pneumo Type 4 (4) 0.8 >=1.0 mcg/mL [facility] S. pneumo Type 5 (5) 0.4 >=1.0 [...] Pneum Ab 23 interp See Footnote LEONEL Liu Comment: Evaluation of the immune response following [...] developed and its performance characteristics determined by [facility] in a manner consistent with CLIA requirements. This test has not been cleared or approved by the U.S. Food and Drug Administration. Test Performed by: [place] [address] Truck Trailer Mechanic: Vandana Simons Ph.D.; CLIA# [id number] Blood 03/28/2024 10:2 4 AM PHOTO COLORER 03/28/2024 2:06 PM PHOTO COLORER Andrzej Wyman MD LAB BLOOD ORDERABLES Fi nal Result [facility] [place] [address] [facility] * Protein electrophoresis with reflex, serum (03/28/2024 10:24 AM PHOTO COLORER) Protein, sr 7.9 6.2 - 8.2 g/dL Albumin 4.3 3.2 - 5.0 g/dL [facility] Alpha-1 globulin 0.3 0.2 - 0.4 g/dL [facility] Alpha-2 globulin 0.9 0.5 - 1.0 g/dL [facility] Beta-1 globulin 0.4 0.3 - 0.6 g/dL [facility] Beta-2 globulin 0.3 0.2 - 0.6 g/dL [facility] Gamma globulin 1.7 0.5 - 1.7 g/dL [facility] SPEP interp Please see comment [facility] Comment: No apparent monoclonal peak Polyclonal increase in gamma globulins Reviewed and signed by Renny Anaya MD, PhD 03/29/2024 Blood 03/28/2024 10:2 4 AM PHOTO COLORER 03/28/2024 11:49 AM PHOTO COLORER Andrzej Wyman MD LAB BLOOD ORDERABLES Fi nal Result Performing Organization Address City/[facility] Co de Phone Number [facility] [place] [address] * (ABNORMAL) IgA (03/28/2024 10:24 AM PHOTO COLORER) Immunoglobulin A <50(L) 70 - 400 mg/dL Blood 03/28/2024 10:2 4 AM PHOTO COLORER 03/28/2024 11:48 AM PHOTO COLORER Andrzej Wyman MD LAB BLOOD ORDERABLES Fi nal Result Performing Organization Address [facility] Co de Phone Number [facility] [place] [address] * IgM (03/28/2024 10:24 AM PHOTO COLORER) Immunoglobulin M 77 40 - 230 mg/dL Blood 03/28/2024 10:2 4 AM PHOTO COLORER 03/28/2024 11:48 AM PHOTO COLORER Andrzej Wyman MD LAB BLOOD ORDERABLES Fi nal Result Performing Organization Address City/[facility] Co de Phone Number [facility] [place] [address] * (ABNORMAL) IgG (03/28/2024 10:24 AM PHOTO COLORER) Immunoglobulin G 1,931(H) 700 - 1,600 mg/dL Blood 03/28/2024 10:2 4 AM PHOTO COLORER 03/28/2024 11:48 AM PHOTO COLORER Andrzej Wyman MD LAB BLOOD ORDERABLES nal Result [facility] [place] [address] * Comprehensive metabolic panel (03/28/2024 10:24 AM PHOTO COLORER) Pathologist [facility] Sodium 140 135 - 145 mmol/L Potassium, pl 4.2 3.3 - 4.9 mmol/L [facility] Chloride 102 97 - 110 mmol/L [facility] CO2 29 22 - 32 mmol/L [facility] Anion gap 9 2 - 15 mmol/L [facility] BUN 23 6 - 25 mg/dL [facility] Creatinine 0.73 0.60 - 1.10 mg/dL [facility] Glucose 85 70 - 199 mg/dL [facility] Comment: Interpretive Data Fasting glucose >/= 126 [...] classification and Diagnosis of Diabetes Diabetes Care 202; 46: S19-S40. Current interpretive data was last revised 2022. Calcium 9.5 8.5 - 10.3 mg/dL [facility] Bilirubin, total 0.4 0.1 - 1.2 mg/dL [facility] Protein, pl 8.3 6.5 - 8.5 g/dL [facility] Albumin 4.5 3.5 - 5.0 g/dL [facility] Alk phos 80 40 - 130 Units/L [facility] ALT 33 7 - 45 Units/L [facility] AST 25 10 - 45 Units/L [facility] Blood 03/28/2024 10:2 4 AM PHOTO COLORER 03/28/2024 11:48 AM PHOTO COLORER Andrzej Wyman MD LAB BLOOD ORDERABLES Fi nal Result [facility] [place] [address] * COLONOSCOPY (01/23/2022 10:27 AM PHOTO COLORER) Anatomical Region Laterality Modality Other Narrative Procedure Note Ez Agarwal MD - 01/23/2022 10:27 AM CST [facility] Patient Name: Ely Wei Procedure Date: 01/23/2022 10:27AM Date of : 1960 Admit Type: Outpatient Age: 61 Gender: Female Attending MD: Ez Agarwal M.D. Room: [facility] ENDOSCOPY ROOM 8 Note Status: Finalized Procedure: Colonoscopy Indications: Follow-up of microscopic colitis Referring MD: Ez Agarwal M.D. Providers: Anas K. Gremida, M.D. Medicines: Monitored Anesthesia Care Complications: No [...] The scope was passed under direct vision.The [id number] endoscope was introduced through the anus and [...] On: 01/23/2022 10:27 AM Recognized by the [employer] for promoting quality in endoscopy Ez Agarwal MD ENDOSCOPY PROCEDURES F inal Result from Last 3 Months or Most Recently Relevant to Health Maintenance Insurance MEDICARE [employer] MEDICARE SUPPLEMENT [place]IC[place] [id number] Advance Directives For more information, please contact: [phone] * Full Code (Latest Code Status on File) Date Activated Date Inactivated Comments 01/23/2022 9:55 AM 01/23/2022 3:41 PM Care Teams Twister Operator Relationship Specialty Start Date End Date Mervin Jay DO PCP - General Internal Medicine 10/21/21
--- OUTSIDE RECORDS SUMMARY | 2024-05-18 07:47 | XMS_ITS | Encounter Summary ---
Author Organization [facility] Address [address] [place] [address] Care Team Providers Care Account Manager Employee Benefits Name Role Phone Jina Banda MD Primary Care Provider Unav ailable Encounter Details Date Type Department Care Team (Late st Contact Info) Description 08/23/2007 Outpatient Historical [facility] Jina Vallejo MD NO ADDRESS ON FILE Injury, Other and Unspecified, Knee, Leg, Ankle, and Foot Social History Tobacco Use Types Packs/Day Years Used Date Smoking Tobacco: Never Assessed Comments Unknown Sex and Gender Information Value Date Recorded Sex Assigned at Not on file Legal Sex Female 5:30 AM AVIATION SURVIVAL TECHNICIAN Gender Identity Not on file Sexual Orientation Not on file documented as of this encounter Plan of Treatment Upcoming Encounters Date Type Department Care Team (Late st Contact Info) Description 09/08/2024 12:00 PM CDT Office Visit [facility] At [address] [place] [address] Randal Cooley MD [address] [place] [address] [address] [place] [address] 10/27/2024 10:00 AM CDT Office Visit [facility] At [address] [place] [address] Randal Cooley MD [address] [place] [address] [address] [place] [address] 10/28/2024 9:30 AM CDT Office Visit [facility] Urology [facility] [address] [place] [address] [place] [address] [facility] [address] [facility] [address] [place] [address] documented as of this encounter Visit Diagnoses Diagnosis Injury, other and unspecified, knee, leg, ankle, and foot documented in this encounter Additional Health Concerns Infection Onset Date Last Indicated Resolved Time R/O COVID-19 11/08/2019 11/08/2019 11/11/2019 12:3 1 AM CDT R/O COVID-19 02/01/2020 02/01/2020 02/03/2020 2:00 AM AVIATION SURVIVAL TECHNICIAN documented as of this encounter Care Teams Account Manager Employee Benefits Relationship Specialty Start Date End Date Jina Banda MD PCP - General Internal Medicine 06/20/16 12/03/21 documented as of this encounter
--- OUTSIDE RECORDS SUMMARY | 2024-05-18 07:47 | XMS_ITS | Encounter Summary ---
Author Organization [facility] Address [address] [place] [address] Care Team Providers Care Slitter And Cutter Operator Name Role Phone Linda Gimenez MD Primary Care Provider Unav ailable Encounter Details Date Type Department Care Team (Latest Contact Info) Description 02/04/2008 Outpatient Historical [facility] PATRICIO Barahona, Bailee Alva, DO NO ADDRESS ON FILE Other Screening Mammogram Social History Tobacco Use Types Packs/Day Years Used Date Smoking Tobacco: Never Alcohol Use Standard Drinks/Week Comments Not Asked 0 (1 standard drink = 0.6 oz pur e alcohol) Comments No Sex and Gender Information Value Date Recorded Sex Assigned at Not on file Legal Sex Female 5:30 AM SEAMARK ADVANCED OPERATOR MAINTAINER Gender Identity Not on file Sexual Orientation Not on file documented as of this encounter Plan of Treatment Upcoming Encounters Date Type Department Care Team (Late st Contact Info) Description 09/08/2024 12:00 PM CDT Office Visit [facility] Heart and Vascular At [address] [place] [address] Randal Cooley MD [address] [place] [address] 2014 [place] [address] 10/27/2024 10:00 AM CDT Office Visit [facility] Heart and Vascular At [address] [place] [address] Randal Cooley MD [address] [place] [address] 2014 [place] [address] 10/28/2024 9:30 AM CDT Office Visit [facility] Urology [facility] [address] [facility] [address] [place] [address] [place] [address] [facility] [address] [place] [address] documented as of this encounter Procedures Procedure Name Priority Date/Time Associated Diagnosis Comments MAMMO SCREEN BILAT W OR WO CAD Routine 02/04/2008 8:06 AM SEAMARK ADVANCED OPERATOR MAINTAINER documented in this encounter Results * MAMMO DIGITAL SCREEN BILAT (02/04/2008 8:06 AM SEAMARK ADVANCED OPERATOR MAINTAINER) Anatomical Region Laterality Modality Breast Bilateral Other 02/04/2008 8:06 AM SEAMARK ADVANCED OPERATOR MAINTAINER Narrative 02/04/2008 11:46 PM SEAMARK ADVANCED OPERATOR MAINTAINER [address] [place], [place] [address] Admit Date: 02/04/2008 EDU WEI Sex: F Admit Prov: BAILEE BARAHONA Date: 1960 Primary Care Prov: PERNELLLINDA CMRN: [id number] Room: JOSUE SSN: [id number] IMAGING SERVICES Ordering Prov: BAILEE BARAHONA Accession Number: [id number] Interpretation BILATERAL SCREENING DIGITAL MAMMOGRAMS WITH COMPUTER ASSISTED DIAGNOSIS 02/04/2008 History: Annual screening study. Comparison mammograms dating back to 2005 FINDINGS: The parenchyma is very dense bilaterally. This lowers the sensitivity of mammography in detecting disease. There is no mass, malignant calcification, lymphadenopathy, architectural distortion or other sign of malignancy. The images were reviewed using the CAD system. SUMMARY: Dense mammary parenchyma. No mammographic evidence of malignancy. Overall assessment: BIRADS category 1 - Negative Assessment BIRADS: 1-Negative Recommendation: Normal interval follow-up Dictated by: KECIA ARREOLA Electronically signed by: KECIA ARREOLA 02/04/2008 23:46 Transcribed: 02/04/2008 19:55 AMK Procedure Note Kecia Arreola MD - 02/04/2008 [facility] [address] [place], [place] [address] Admit Date: 02/04/2008 EDU WEI Sex: F Admit Prov: BAILEE BARAHONA Date:1960 Primary Care Prov: LINDA GIMENEZ CMRN: [id number] Room: B-Michelle SSN: [id number] IMAGING SERVICES Ordering Prov: BAILEE BARAHONA Interpretation BILATERAL SCREENING DIGITAL MAMMOGRAMS WITH COMPUTER ASSISTEDDIAGNOSIS 02/04/2008 History: Annual screening study. Comparison mammograms dating back to 2005 FINDINGS: The parenchyma is very dense bilaterally. This lowersthe sensitivity of mammography in detecting disease. There is no mass, malignant calcification, lymphadenopathy, architectural distortion orother sign of malignancy. The images were reviewed using the Mashwork. SUMMARY: Dense mammary parenchyma. No mammographic evidence of malignancy. Overall assessment: BIRADS category 1 - Negative Assessment BIRADS: 1-Negative Recommendation: Normal interval follow-up Dictated by: KECIA ARREOLA Electronically signed by: KECIA ARREOLA 02/04/2008 23:46 Transcribed: 02/04/2008 19:55 AMK Bailee Barahona DO MAMMO ORDERABLES Final Result documented in this encounter Visit Diagnoses Diagnosis Other screening mammogram documented in this encounter Additional Health Concerns Infection Onset Date Last Indicated Resolved Time R/O COVID-19 11/08/2019 11/08/2019 11/11/2019 12:3 1 AM CDT R/O COVID-19 02/01/2020 02/01/2020 02/03/2020 2:00 AM SEAMARK ADVANCED OPERATOR MAINTAINER documented as of this encounter Care Teams Slitter And Cutter Operator Relationship Specialty Start Date End Date Linda Gimenez MD PCP - General Internal Medicine 06/20/16 12/03/21 documented as of this encounter
--- OUTSIDE RECORDS SUMMARY | 2024-05-18 07:47 | XMS_ITS | Encounter Summary ---
Author Organization [facility] Address [address] [place] [address] Care Team Providers Care Billing And Quality Technician Name Role Phone Jina Banda MD Primary Care Provider Unav ailable Encounter Details Date Type Department Care Team (Late st Contact Info) Description 04/18/2004 Outpatient Historical [facility] Internal [facility] - [facility] [phone] [place] [address] [address] [place] [address] Jina Banda MD NO ADDRESS ON FILE Social History Tobacco Use Types Packs/Day Years Used Date Smoking Tobacco: Never Assessed Comments Unknown Sex and Gender Information Value Date Recorded Sex Assigned at Not on file Legal Sex Female 5:30 AM COTTON STRIPPER Gender Identity Not on file Sexual Orientation Not on file documented as of this encounter Plan of Treatment Upcoming Encounters Date Type Department Care Team (Late st Contact Info) Description 09/08/2024 12:00 PM CDT Office Visit [facility] Heart and Vascular At [address] [place] [address] Randal Cooley MD [address] [place] [address] 2014 [place] [address] 10/27/2024 10:00 AM CDT Office Visit [facility] Heart and Vascular At [address] [place] [address] Randal Cooley MD [address] [place] [address] [address] [place] [address] 10/28/2024 9:30 AM CDT Office Visit [facility] Urology [facility] [address] [facility] [address] [place] [address] [place] [address] [facility] [address] [facility] [address] [place] [address] documented as of this encounter Visit Diagnoses Not on filedocumented in this encounter Additional Health Concerns Infection Onset Date Last Indicated Resolved Time R/O COVID-19 11/08/2019 11/08/2019 11/11/2019 12:3 1 AM CDT R/O COVID-19 02/01/2020 02/01/2020 02/03/2020 2:00 AM COTTON STRIPPER documented as of this encounter Care Teams Billing And Quality Technician Relationship Specialty Start Date End Date Jina Banda MD PCP - General Internal Medicine 06/20/16 12/03/21 documented as of this encounter
--- OUTSIDE RECORDS SUMMARY | 2024-05-18 07:47 | XMS_ITS | Encounter Summary ---
Author Organization [facility] Address [address] [place] [address] Care Team Providers Care Field Cashier Name Role Phone Jina Banda MD Primary Care Provider Unav ailable Encounter Details Date Type Department Care Team (Late st Contact Info) Description 02/25/2006 Outpatient Historical [facility] Internal Medicine - [facility] [phone] [place] [address] [address] [place] [address] Jina Banda MD NO ADDRESS ON FILE Social History Tobacco Use Types Packs/Day Years Used Date Smoking Tobacco: Never Assessed Comments Unknown Sex and Gender Information Value Date Recorded Sex Assigned at Not on file Legal Sex Female 5:30 AM LIBRARIAN HEAD Gender Identity Not on file Sexual Orientation Not on file documented as of this encounter Plan of Treatment Upcoming Encounters Date Type Department Care Team (Late st Contact Info) Description 09/08/2024 12:00 PM CDT Office Visit [facility] Heart and Vascular At [address] [place] [address] Randal Cooley MD [address] [place] [address] 2014 [place] [address] 10/27/2024 10:00 AM CDT Office Visit [facility] Heart and Vascular At [address] [place] [address] Randal Cooley MD [address] [place] [address] 2014 [place] [address] 10/28/2024 9:30 AM CDT Office Visit [facility] Urology [facility] [address] [address] [facility] [address] [place] [address] [place] [address] [facility] [address] [facility] [address] [place] [address] documented as of this encounter Visit Diagnoses Not on filedocumented in this encounter Additional Health Concerns Infection Onset Date Last Indicated Resolved Time R/O COVID-19 11/08/2019 11/08/2019 11/11/2019 12:3 1 AM CDT R/O COVID-19 02/01/2020 02/01/2020 02/03/2020 2:00 AM LIBRARIAN HEAD documented as of this encounter Care Teams Field Cashier Relationship Specialty Start Date End Date Jina Banda MD PCP - General Internal Medicine 06/20/16 12/03/21 documented as of this encounter
--- OUTSIDE RECORDS SUMMARY | 2024-05-18 07:47 | XMS_ITS | Encounter Summary ---
Author Organization [facility] Address [address] [place] [address] Care Team Providers Care Windscreen Fitter Name Role Phone Jina Banda MD Primary Care Provider Unav ailable Encounter Details Date Type Department Care Team (Late st Contact Info) Description 07/09/2000 Outpatient Historical [facility] Internal Medicine - [facility] [phone] [place] [address] [address] [place] [address] Jina Banda MD NO ADDRESS ON FILE Social History Tobacco Use Types Packs/Day Years Used Date Smoking Tobacco: Never Assessed Comments Unknown Sex and Gender Information Value Date Recorded Sex Assigned at Not on file Legal Sex Female 5:30 AM SLIDE FASTENER CHAIN ASSEMBLER Gender Identity Not on file Sexual Orientation Not on file documented as of this encounter Plan of Treatment Upcoming Encounters Date Type Department Care Team (Late st Contact Info) Description 09/08/2024 12:00 PM CDT Office Visit [facility] Heart and Vascular At [address] [place] [address] Randal Cooley MD [address] [place] [address] 2014 [place] [address] 10/27/2024 10:00 AM CDT Office Visit [facility] Heart and Vascular At [address] [place] [address] Randal Cooley MD [address] [place] [address] 2014 [place] [address] 10/28/2024 9:30 AM CDT Office Visit [facility] Urology [facility] [address] [facility] [address] [place] [address] [place] [address] [facility] [address] [facility] [address] [place] [address] documented as of this encounter Visit Diagnoses Not on filedocumented in this encounter Additional Health Concerns Infection Onset Date Last Indicated Resolved Time R/O COVID-19 11/08/2019 11/08/2019 11/11/2019 12:3 1 AM CDT R/O COVID-19 02/01/2020 02/01/2020 02/03/2020 2:00 AM SLIDE FASTENER CHAIN ASSEMBLER documented as of this encounter Care Teams Windscreen Fitter Relationship Specialty Start Date End Date Jina Banda MD PCP - General Internal Medicine 06/20/16 12/03/21 documented as of this encounter
--- OUTSIDE RECORDS SUMMARY | 2024-05-18 07:47 | XMS_ITS | Encounter Summary ---
Author Organization [facility] Address [address] [place] [address] Care Team Providers Care Belt Molder Name Role Phone Jina Banda MD Primary Care Provider Unav ailable Encounter Details Date Type Department Care Team (Late st Contact Info) Description 05/13/2004 Outpatient Historical [facility] Internal Medicine - [facility] [phone] [place] [address] [address] [place] [address] Jina Banda MD NO ADDRESS ON FILE Social History Tobacco Use Types Packs/Day Years Used Date Smoking Tobacco: Never Assessed Comments Unknown Sex and Gender Information Value Date Recorded Sex Assigned at Not on file Legal Sex Female 5:30 AM HANDSTITCHING MACHINE ARMHOLE FELLER Gender Identity Not on file Sexual Orientation Not on file documented as of this encounter Plan of Treatment Upcoming Encounters Date Type Department Care Team (Late st Contact Info) Description 09/08/2024 12:00 PM CDT Office Visit [facility] Heart and Vascular At [address] [place] [address] Randal Cooley MD [address] [place] [address] [address] [place] [address] 10/27/2024 10:00 AM CDT Office Visit [facility] Heart and Vascular At [address] [place] [address] Randal Cooley MD [address] [place] [address] [address] [place] [address] 10/28/2024 9:30 AM CDT Office Visit [facility] Urology [facility] [address] [facility] [address] [facility] [address] [place] [address] [place] [address] [facility] [address] [facility] [address] [place] [address] documented as of this encounter Visit Diagnoses Not on filedocumented in this encounter Additional Health Concerns Infection Onset Date Last Indicated Resolved Time R/O COVID-19 11/08/2019 11/08/2019 11/11/2019 12:3 1 AM CDT R/O COVID-19 02/01/2020 02/01/2020 02/03/2020 2:00 AM HANDSTITCHING MACHINE ARMHOLE FELLER documented as of this encounter Care Teams Belt Molder Relationship Specialty Start Date End Date Jina Banda MD PCP - General Internal Medicine 06/20/16 12/03/21 documented as of this encounter
--- OUTSIDE RECORDS SUMMARY | 2024-05-18 07:47 | XMS_ITS | Encounter Summary ---
Author Organization [facility] Address [address] [place] [address] Care Team Providers Care Supervisor In Circuit Testing Name Role Phone Jina Banda MD Primary Care Provider Unav ailable Encounter Details Date Type Department Care Team (Late st Contact Info) Description 09/22/2000 Outpatient Historical [facility] Internal Medicine - [facility] [phone] [place] [address] [address] [place] [address] Jina Banda MD NO ADDRESS ON FILE Social History Tobacco Use Types Packs/Day Years Used Date Smoking Tobacco: Never Assessed Comments Unknown Sex and Gender Information Value Date Recorded Sex Assigned at Not on file Legal Sex Female 5:30 AM MAINTENANCE DISPATCHER Gender Identity Not on file Sexual Orientation Not on file documented as of this encounter Plan of Treatment Upcoming Encounters Date Type Department Care Team (Late st Contact Info) Description 09/08/2024 12:00 PM CDT Office Visit [facility] Heart and Vascular At [address] [place] [address] Randal Cooley MD [address] [place] [address] 2014 [place] [address] 10/27/2024 10:00 AM CDT Office Visit [facility] Heart and Vascular At [address] [place] [address] Randal Cooley MD [address] [place] [address] 2014 [place] [address] 10/28/2024 9:30 AM CDT Office Visit [facility] Urology [facility] [address] [facility] [address] [facility] [address] [place] [address] [place] [address] [facility] [address] [facility] [address] [place] [address] documented as of this encounter Visit Diagnoses Not on filedocumented in this encounter Additional Health Concerns Infection Onset Date Last Indicated Resolved Time R/O COVID-19 11/08/2019 11/08/2019 11/11/2019 12:3 1 AM CDT R/O COVID-19 02/01/2020 02/01/2020 02/03/2020 2:00 AM MAINTENANCE DISPATCHER documented as of this encounter Care Teams Supervisor In Circuit Testing Relationship Specialty Start Date End Date Jina Banda MD PCP - General Internal Medicine 06/20/16 12/03/21 documented as of this encounter
--- OUTSIDE RECORDS SUMMARY | 2024-05-18 07:47 | XMS_ITS | Referral Summary ---
Author Organization [facility] Address [address] [facility] [place] [address] Care Team Providers Care Laborer Concrete Paving Name Role Phone Mervin Jay DO Primary Care Provider [phone] Source Comments [facility],non-owned Affiliates and Associated Physician Practices is amultiple site organization consisting of ambulatory clinics and hospital sitesin [place], [place], [place] and [place]. This disclosure is being madepursuant to the Care Everywhere program and may not contain all information available regarding this patient. Last updated 17.[facility] Allergies Active Allergy Reactions Criticality Noted Date [...] MCG/ACT nasal sprayIndications:Acu te pharyngitis, unspecified etiology [place] 2 sprays into each nostril once daily 1 bottles 09/11/2018 Active diphenhydramine 12.5mg/ml, 30ml,; visc lidocaine 2%, 30ml,; maalox, 30ml, (MIRACLE MOUTHWASH) SUSPIndications:Acut e pharyngitis, unspecified etiology Swish and spit 10 mL every 4 hours as needed 90 mL 09/11/2018 Active Social History Tobacco Use Types Packs/Day Years [...] 09/11/2018 2:42 PM CDT Plan of Treatment Not on file Care Teams Laborer Concrete Paving Relationship Specialty Start Date End Date Mervin Jay DO PCP - General 09/26/20
--- OUTSIDE RECORDS SUMMARY | 2024-05-18 07:47 | XMS_ITS | Encounter Summary ---
Author Organization [facility] Address [address] [place] [address] Care Team Providers Care Legal Contracts Specialist Name Role Phone Jina Banda MD Primary Care Provider Unav ailable Encounter Details Date Type Department Care Team (Late st Contact Info) Description 12/03/2004 Outpatient Historical [facility] Charo Haynes [address] [place] [address] SCREENING MAMM-MAILG NEOPL NEC (Primary Dx) Social History Tobacco Use Types Packs/Day Years Used Date Smoking Tobacco: Never Assessed Comments Unknown Sex and Gender Information Value Date Recorded Sex Assigned at Not on file Legal Sex Female 5:30 AM EVENT AV OPERATOR Gender Identity Not on file Sexual Orientation Not on file documented as of this encounter Plan of Treatment Upcoming Encounters Date Type Department Care Team (Late st Contact Info) Description 09/08/2024 12:00 PM CDT Office Visit [facility] Heart and Vascular At [address] [place] [address] Randal Cooley MD [address] [place] [address] 2014 [place] [address] 10/27/2024 10:00 AM CDT Office Visit [facility] Heart and Vascular At [address] [place] [address] Randal Cooley MD [address] [place] [address] 2014 [place] [address] 10/28/2024 9:30 AM CDT Office Visit [facility] Urology [facility] [address] [facility] [address] [place] [address] [place] [address] [facility] [address] [place] [address] documented as of this encounter Visit Diagnoses Diagnosis Other screening mammogram- Primary documented in this encounter Additional Health Concerns Infection Onset Date Last Indicated Resolved Time R/O COVID-19 11/08/2019 11/08/2019 11/11/2019 12:3 1 AM CDT R/O COVID-19 02/01/2020 02/01/2020 02/03/2020 2:00 AM EVENT AV OPERATOR documented as of this encounter Care Teams Legal Contracts Specialist Relationship Specialty Start Date End Date Jina Banda MD PCP - General Internal Medicine 06/20/16 12/03/21 documented as of this encounter
--- OUTSIDE RECORDS SUMMARY | 2024-05-18 07:47 | XMS_ITS | Encounter Summary ---
Author Organization [facility] Address [address] [place] [address] Care Team Providers Care Steel Analyst Name Role Phone Jina Banda MD Primary Care Provider Unav ailable Encounter Details Date Type Department Care Team (Late st Contact Info) Description 10/06/2002 Outpatient Historical [facility] Internal Medicine - [facility] [id number] [place] [address] [address] [place] [address] Jina Banda MD NO ADDRESS ON FILE Social History Tobacco Use Types Packs/Day Years Used Date Smoking Tobacco: Never Assessed Comments Unknown Sex and Gender Information Value Date Recorded Sex Assigned at Not on file Legal Sex Female 5:30 AM INVISIBLE BRACES ORTHODONTIST Gender Identity Not on file Sexual Orientation Not on file documented as of this encounter Plan of Treatment Upcoming Encounters Date Type Department Care Team (Late st Contact Info) Description 09/08/2024 12:00 PM CDT Office Visit [facility] Heart and Vascular At [address] [place] [address] Randal Cooley MD [address] [place] [address] 2014 [place] [address] 10/27/2024 10:00 AM CDT Office Visit [facility] Heart and Vascular At [address] [place] [address] Randal Cooley MD [address] [place] [address] 2014 [place] [address] 10/28/2024 9:30 AM CDT Office Visit [facility] Urology [facility] [address] [facility] [address] [facility] [address] [place] [address] [place] [address] [facility] [address] [facility] 260 [place] [address] documented as of this encounter Visit Diagnoses Not on filedocumented in this encounter Additional Health Concerns Infection Onset Date Last Indicated Resolved Time R/O COVID-19 11/08/2019 11/08/2019 11/11/2019 12:3 1 AM CDT R/O COVID-19 02/01/2020 02/01/2020 02/03/2020 2:00 AM INVISIBLE BRACES ORTHODONTIST documented as of this encounter Care Teams Steel Analyst Relationship Specialty Start Date End Date Jina Banda MD PCP - General Internal Medicine 06/20/16 12/03/21 documented as of this encounter
--- OUTSIDE RECORDS SUMMARY | 2024-05-18 07:47 | XMS_ITS | Encounter Summary ---
Author Organization [facility] Address [address] [place] [address] Care Team Providers Care Program Aide Group Work Name Role Phone Jina Banda MD Primary Care Provider Unav ailable Encounter Details Date Type Department Care Team (Late st Contact Info) Description 03/03/2006 Orders Only [facility] Internal Medicine - [facility] [address] [address] [facility] [address] [place] [address] Tarah Cardenas, ANP [address] [facility] [address] [place] [address] Social History Tobacco Use Types Packs/Day Years Used Date Smoking Tobacco: Never Assessed Comments Unknown Sex and Gender Information Value Date Recorded Sex Assigned at Not on file Legal Sex Female 5:30 AM TRANSFER IRON OPERATOR Gender Identity Not on file Sexual Orientation Not on file documented as of this encounter Progress Notes * Tarah Cardenas, JERZY - 12/29/2007 4:12 AM CDT TIME:03:54 pm PATIENT`S HOME PHONE: PATIENT`S WORK PHONE: PATIENT`S INSURANCE: [facility] [employer] [facility] WHO TOOK THE CALL: Nohemy Hernandez M GENERAL INFORMATION ALTERNATIVE PHONE NUMBER: [phone] SECTION 1: REQUESTED ACTION thor 03/03/06 at 03:55 pm: MEDICATION REQUEST: hip x-ray normal. Pt has L side pain. Can call in Rx? DOCTOR`S RESPONSE: meyelHeavenly 12/19/06 at 04:22 pm MEDICATIONS: Call in to Pharmacy NAPROSYN ORAL TABLET 500 MG, 1 Two Times A Day. Take with food., 40 Dispensed, status: NEW PRESCRIPTION, 03/03/2006. pharm DOCTOR`S OTHER RESPONSE: If does not immprove, refer to ortho. Give her names of Tereso You Dusek. FINAL ACTION: spirdm 03/03/06 at 04:57 pm Spoke with patient 03/03/06 at 04:57 pm. ds Called pharmacy at 03/03/06 at 04:57 pm. ds Electronically Signed by: Kecia Diego on Friday, March 03, 2006 documented in this encounter Plan of Treatment Upcoming Encounters Date Type Department Care Team (Late st Contact Info) Description 09/08/2024 12:00 PM CDT Office Visit [facility] Heart and Vascular At [address] [place] [address] Randal Cooley MD [address] [place] [address] [address] [place] [address] 10/27/2024 10:00 AM CDT Office Visit [facility] Heart and Vascular At [address] [place] [address] Randal Cooley MD [address] [place] [address] [address] [place] [address] 10/28/2024 9:30 AM CDT Office Visit [facility] Urology [facility] [address] [facility] [address] [place] [id number] [place] [address] [facility] [address] [place] [id number] documented as of this encounter Visit Diagnoses Not on filedocumented in this encounter Additional Health Concerns Infection Onset Date Last Indicated Resolved Time R/O COVID-19 11/08/2019 11/08/2019 11/11/2019 12:3 1 AM CDT R/O COVID-19 02/01/2020 02/01/2020 02/03/2020 2:00 AM TRANSFER IRON OPERATOR documented as of this encounter Care Teams Program Aide Group Work Relationship Specialty Start Date End Date Jina Banda MD PCP - General Internal Medicine 06/20/16 12/03/21 documented as of this encounter
--- OUTSIDE RECORDS SUMMARY | 2024-05-18 07:47 | XMS_ITS | Encounter Summary ---
Author Organization [facility] Address [address] [place] [address] Care Team Providers Care Imaging Analyst Name Role Phone Jina Banda MD Primary Care Provider Unav ailable Encounter Details Date Type Department Care Team (Latest Contact Info) Description 04/14/2005 Inpatient Historical HIS PATIENT IN A BED Jack Thompson MD [address] [phone] Jill Moran MD [address] [address] INFLUENZA WITH PNEUMONIA (Primary Dx) Social History Tobacco Use Types Packs/Day Years Used Date Smoking Tobacco: Never Assessed Comments Unknown Sex and Gender Information Value Date Recorded Sex Assigned at Not on file Legal Sex Female 5:30 AM GEOTECHNICAL INTERN Gender Identity Not on file Sexual Orientation Not on file documented as of this encounter Plan of Treatment Upcoming Encounters Date Type Department Care Team (Late st Contact Info) Description 09/08/2024 12:00 PM CDT Office Visit [facility] Heart and Vascular At [address] [place] [address] Randal Cooley MD [address] [place] [address] [address] [place] [address] 10/27/2024 10:00 AM CDT Office Visit [facility] Heart and Vascular At [address] [place] [address] Randal Cooley MD [address] [facility] [address] [place] [address] 10/28/2024 9:30 AM CDT Office Visit [facility] U[facility] [address] [facility] [address] [place] [phone] [place] [address] [facility] [address] [place] [address] documented as of this encounter Procedures Procedure Name Priority Date/Time Associated Diagnosis Comments URINALYSIS WITH REFLEX CULTURE Routine 04/15/2005 8:55 AM GEOTECHNICAL INTERN URINALYSIS W/REFLEX MICROSCOPIC Routine 04/15/2005 8:55 AM GEOTECHNICAL INTERN MONONUCLEOSIS SCREEN Routine 04/14/2005 8:50 PM GEOTECHNICAL INTERN URINALYSIS WITH REFLEX CULTURE Routine 04/14/2005 7:01 PM GEOTECHNICAL INTERN URINALYSIS W/REFLEX MICROSCOPIC Routine 04/14/2005 7:01 PM GEOTECHNICAL INTERN CBC WITH DIFFERENTIAL Routine 04/14/2005 5:25 PM GEOTECHNICAL INTERN CBC WITH DIFFERENTIAL Routine 04/14/2005 5:25 PM GEOTECHNICAL INTERN TSH Routine 04/14/2005 5:25 PM GEOTECHNICAL INTERN COMPREHENSIVE METABOLIC PANEL Routine 04/14/2005 5:25 PM GEOTECHNICAL INTERN documented in this encounter Results * (ABNORMAL) URINALYSIS (04/15/2005 8:55 AM GEOTECHNICAL INTERN) COLOR UA Colorless INTERFACE SYSTEM CLARITY UA Clear Clear INTERFACE SYSTEM SPECIFIC GRAVITY UA 1.005 1.001 - 1.035 INTERFACE SYSTEM PH UA 5.5 5.0 - 8.0 INTERFACE SYSTEM LEUKOCYTE ESTERASE UA 1+(A) Negative INTERFACE SYSTEM NITRITE UA Negative Negative INTERFACE SYSTEM PROTEIN UA Negative Negative INTERFACE SYSTEM GLUCOSE UA Negative Negative INTERFACE SYSTEM KETONES UA Negative Negative INTERFACE SYSTEM UROBILINOGEN UA <1 <1 mg/dL INTE RFACE SYSTEM BILIRUBIN UA Negative Negative INTERFA CE SYSTEM BLOOD UA Negative Negative INTERFACE SYSTEM WBC UA 3 0 - 5 /HPF INTERFACE SYSTEM RBC UA 1 0 - 4 /HPF INTERFACE SYSTEM EPITHELIAL CELLS, URINE 2-5 /HPF INTERFACE SYSTEM 04/15/2005 8:55 AM GEOTECHNICAL INTERN Jill Moran MD URINE ORDERABLES Final Result Performing Organization Address [facility] Phone Number INTERFACE SYSTEM Refer to clinic/hospital department * URINALYSIS WITH REFLEX CULTURE (04/15/2005 8:55 AM GEOTECHNICAL INTERN) URINE CULTURE ORDER Culture ordered INTERFACE SYSTEM Comment: Criteria for a reflex culture include one or more of the following: Abn ormal nitrite, leukocyte esterase, WBCs or RBCs. Lack of qualifying criteria does not exclude the possiblity of a urinary tract infection. Dilute urine, drug interference, etc. may decrease the sensitivity of the criteria analytes. 04/15/2005 8:55 AM GEOTECHNICAL INTERN Jill Moran MD URINE ORDERABLES Final Result Performing Organization Address [facility] Phone Number INTERFACE SYSTEM Refer to clinic/hospital department * MONONUCLEOSIS SCREEN (04/14/2005 8:50 PM GEOTECHNICAL INTERN) MONONUCLEOSIS SCREEN Negative Negative INTERFACE SYSTEM 04/14/2005 8:50 PM GEOTECHNICAL INTERN Jill Moran MD HEMATOLOGY ORDERABLES Final Re sult Performing Organization Address [facility] Phone Number INTERFACE SYSTEM Refer to clinic/hospital department * URINALYSIS (04/14/2005 7:01 PM GEOTECHNICAL INTERN) COLOR UA Yellow INTERFACE SYSTEM CLARITY UA Clear Clear INTERFACE SYSTEM SPECIFIC GRAVITY UA 1.005 1.001 - 1.035 INTERFACE SYSTEM PH UA 5.5 5.0 - 8.0 INTERFACE SYSTEM LEUKOCYTE ESTERASE UA Negative Negative INTERFACE SYSTEM NITRITE UA Negative Negative INTERFACE SYSTEM PROTEIN UA Negative Negative INTERFACE SYSTEM GLUCOSE UA Negative Negative INTERFACE SYSTEM KETONES UA Negative Negative INTERFACE SYSTEM UROBILINOGEN UA <1 <1 mg/dL INTE RFACE SYSTEM BILIRUBIN UA Negative Negative INTERFA CE SYSTEM BLOOD UA Negative Negative INTERFACE SYSTEM 04/14/2005 7:01 PM GEOTECHNICAL INTERN Jina Banda MD URINE ORDERABLES Final Resu lt Performing Organization Address [facility] Phone Number INTERFACE SYSTEM Refer to clinic/hospital department * URINALYSIS WITH REFLEX CULTURE (04/14/2005 7:01 PM GEOTECHNICAL INTERN) URINE CULTURE ORDER Not indicated INTERFACE SYSTEM Comment: Criteria for a reflex culture include one or more of the following: Abn ormal nitrite, leukocyte esterase, WBCs or RBCs. Lack of qualifying criteria does not exclude the possiblity of a urinary tract infection. Dilute urine, drug interference, etc. may decrease the sensitivity of the criteria analytes. 04/14/2005 7:01 PM GEOTECHNICAL INTERN Jina Banda MD URINE ORDERABLES Final Resu lt Performing Organization Address [facility] Phone Number INTERFACE SYSTEM Refer to clinic/hospital department * CBC WITH DIFFERENTIAL (04/14/2005 5:25 PM GEOTECHNICAL INTERN) NEUTROPHILS 69 45 - 70 % INTERFAC E SYSTEM LYMPHOCYTES 20 16 - 45 % INTERFAC E SYSTEM MONOCYTES 10 3 - 13 % INTERFACE SYSTEM EOSINOPHILS 1 0 - 7 % INTERFAC E SYSTEM BASOPHILS 1 0 - 2 % INTERFACE SYSTEM NEUTROPHIL ABSOLUTE 2.40 1.90 - 7.00 K/uL INTERFACE SYSTEM LYMPHOCYTE ABSOLUTE 0.70 0.70 - 4.50 K/uL INTERFACE SYSTEM MONOCYTE ABSOLUTE 0.34 0.10 - 1.30 K/uL INTERFACE SYSTEM EOSINOPHIL ABSOLUTE 0.04 0.00 - 0.70 K/uL INTERFACE SYSTEM BASOPHILS ABSOLUTE 0.02 0.00 - 0.20 K/uL INTERFACE SYSTEM 04/14/2005 5:25 PM GEOTECHNICAL INTERN Mervin Butcher DO HEMATOLOGY ORDERABLES Final R esult Performing Organization Address [facility] Phone Number INTERFACE SYSTEM Refer to clinic/hospital department * (ABNORMAL) CBC WITH DIFFERENTIAL (04/14/2005 5:25 PM GEOTECHNICAL INTERN) WBC 3.5(L) 4.0 - 9.8 K/uL INTERFACE SYSTEM RBC 3.90 3.90 - 4.90 M/uL INTERFACE SYSTEM HEMOGLOBIN 10.7(L) 11.8 - 14.8 g/dL INTERFACE SYSTEM HEMATOCRIT 33.3(L) 35.5 - 44.0 % INTERFACE SYSTEM MCV 85.4 82.0 - 99.0 fL INTERFACE SYSTEM MCH 27.4 27.2 - 32.6 pg INTERFACE SYSTEM MCHC 32.1 31.5 - 35.5 % INTERFACE SYSTEM RDW 14.4 11.5 - 14.5 % INTERFACE SYSTEM RDW-STDEV 45.3 37.1 - 48.7 fL INTERFACE SYSTEM PLATELETS 213 140 - 350 K/uL INTERFACE SYSTEM MPV 10.2 9.3 - 12.4 fL INTERFACE SYSTEM 04/14/2005 5:25 PM GEOTECHNICAL INTERN Mervin Butcher DO HEMATOLOGY ORDERABLES Final R esult Performing Organization Address [facility] Phone Number INTERFACE SYSTEM Refer to clinic/hospital department * TSH (04/14/2005 5:25 PM GEOTECHNICAL INTERN) Pathologist [facility] TSH 0.45 0.27 - 4.20 uU/mL INTERFACE SYSTEM 04/14/2005 5:25 PM GEOTECHNICAL INTERN Mervin Butcher DO CHEMISTRY ORDERABLES Final Re sult Performing Organization Address [facility] Phone Number INTERFACE SYSTEM Refer to clinic/hospital department * (ABNORMAL) COMPREHENSIVE METABOLIC PANEL (04/14/2005 5:25 PM GEOTECHNICAL INTERN) GLUCOSE 102 65 - 109 mg/dL INTERFACE SYSTEM CREATININE 0.6 0.4 - 1.2 mg/dL INTERFACE SYSTEM CALCIUM 8.3(L) 8.6 - 10.2 mg/dL INTERFACE SYSTEM AST 31 12 - 32 U/L INTERFACE SYSTEM ALKALINE PHOSPHATASE 59 35 - 104 U/L INTERFACE SYSTEM BILIRUBIN TOTAL 0.2 0.2 - 1.0 mg/dL INTERFACE SYSTEM ALBUMIN 3.9 3.4 - 4.8 g/dL INTERFACE SYSTEM TOTAL PROTEIN 7.3 6.3 - 8.6 g/dL INTERFACE SYSTEM ALT 29 0 - 31 U/L INTERFACE SYSTEM BUN 6 6 - 20 mg/dL INTERFACE SYSTEM SODIUM 140 135 - 145 mmol/L INTERFACE SYSTEM POTASSIUM 3.3(L) 3.5 - 4.9 mmol/L INTERFACE SYSTEM CHLORIDE 110(H) 96 - 108 mmol/L INTERFACE SYSTEM CO2 21(L) 22 - 30 mmol/L INTERFACE SYSTEM 04/14/2005 5:25 PM GEOTECHNICAL INTERN Mervin Butcher DO CHEMISTRY ORDERABLES Final Re sult INTERFACE SYSTEM Refer to clinic/hospital department documented in this encounter Visit Diagnoses Diagnosis Influenza with pneumonia- Primary documented in this encounter Additional Health Concerns Infection Onset Date Last Indicated Resolved Time R/O COVID-19 11/08/2019 11/08/2019 11/11/2019 12:3 1 AM CDT R/O COVID-19 02/01/2020 02/01/2020 02/03/2020 2:00 AM GEOTECHNICAL INTERN documented as of this encounter Care Teams Imaging Analyst Relationship Specialty Start Date End Date Jina Banda MD PCP - General Internal Medicine 06/20/16 12/03/21 documented as of this encounter
--- OUTSIDE RECORDS SUMMARY | 2024-05-18 07:47 | XMS_ITS | Encounter Summary ---
Author Organization [facility] Address [address] [place] [address] Care Team Providers Care Workers' Compensation Hearings Officer Name Role Phone Jina Banda MD Primary Care Provider Unav ailable Encounter Details Date Type Department Care Team (Late st Contact Info) Description 08/02/2014 Nurse Triage Report [facility] ABSTRACTION Sheeba Sotomayor, RN [address] [address] Social History Tobacco Use Types Packs/Day Years Used Date Smoking Tobacco: Never Smokeless Tobacco: Never Alcohol Use Standard Drinks/Week Comments No 0 (1 standard drink = 0.6 oz pur e alcohol) Comments No Sex and Gender Information Value Date Recorded Sex Assigned at Not on file 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 Report to Dr. Banda <<<<<<<< TRIAGE NOTE >>>>>>>> Triage Note: General Farmer Sheeba Sotomayor added this note on Aug 02 2014 11:41PM: Spouse is in an [id number] ED and requesting information on pre-auth for testing. Encouraged to call pre-auth number in a.m. <<<<<<<< TRIAGE/OUTCOME >>>>>>>> Guideline Title: Information Only Call; No Symptom Triage (Adult) Recommended Disposition: Call Provider When Office is Open Original Inclination: Call Provider/See in 24 Intended Action: Call or See Provider within 24 hrs Physician Contacted: No Requesting information not available per approved reference or clinical experience; no triage required. ? YES documented in this encounter Plan of Treatment Upcoming Encounters Date Type Department Care Team (Late st Contact Info) Description 09/08/2024 12:00 PM CDT Office Visit [facility] Heart and Vascular At [address] [place] [address] Randal Cooley MD [address] [place] [address] [address] [place] [address] 10/27/2024 10:00 AM CDT Office Visit [facility] Heart and Vascular At [address] [place] [address] Randal Cooley MD [address] [place] [address] [address] [place] [address] 10/28/2024 9:30 AM CDT Office Visit [facility] Urology [facility] [address] [facility] [address] [place] [address] [place] [address] [address] documented as of this encounter Visit Diagnoses Not on filedocumented in this encounter Additional Health Concerns Infection Onset Date Last Indicated Resolved Time R/O COVID-19 11/08/2019 11/08/2019 11/11/2019 12:3 1 AM CDT R/O COVID-19 02/01/2020 02/01/2020 02/03/2020 2:00 AM COMMERCIAL SHEET METAL FOREMAN documented as of this encounter Care Teams Workers' Compensation Hearings Officer Relationship Specialty Start Date End Date Jina Banda MD PCP - General Internal Medicine 06/20/16 12/03/21 documented as of this encounter
--- OUTSIDE RECORDS SUMMARY | 2024-05-18 07:47 | XMS_ITS | Encounter Summary ---
Author Organization [facility] Address [address] [place] [address] Care Team Providers Care Wood Patternmaker Name Role Phone Jina Banda MD Primary Care Provider Unav ailable Encounter Details Date Type Department Care Team (Late st Contact Info) Description 09/07/2007 Outpatient Historical [facility]/RADIOLOGY Jina Banda MD NO ADDRESS ON FILE Unspecified Hypothyroidism Social History Tobacco Use Types Packs/Day Years Used Date Smoking Tobacco: Never Assessed Comments Unknown Sex and Gender Information Value Date Recorded Sex Assigned at Not on file Legal Sex Female 5:30 AM ACCIDENT INVESTIGATOR Gender Identity Not on file Sexual Orientation Not on file documented as of this encounter Plan of Treatment Upcoming Encounters Date Type Department Care Team (Late st Contact Info) Description 09/08/2024 12:00 PM CDT Office Visit [facility] Heart and Vascular At [address] [place] [address] Randal Cooley MD [address] [place] [address] [address] [place] [address] 10/27/2024 10:00 AM CDT Office Visit [facility] Heart and Vascular At [address] [place] [address] Randal Cooley MD [address] [place] [address] [address] [place] [address] 10/28/2024 9:30 AM CDT Office Visit [facility] Urology [address] [place] [address] [place] [address] [facility] [address] [place] [address] documented as of this encounter Visit Diagnoses Diagnosis Unspecified hypothyroidism documented in this encounter Additional Health Concerns Infection Onset Date Last Indicated Resolved Time R/O COVID-19 11/08/2019 11/08/2019 11/11/2019 12:3 1 AM CDT R/O COVID-19 02/01/2020 02/01/2020 02/03/2020 2:00 AM ACCIDENT INVESTIGATOR documented as of this encounter Care Teams Wood Patternmaker Relationship Specialty Start Date End Date Jina Banda MD PCP - General Internal Medicine 06/20/16 12/03/21 documented as of this encounter
--- OUTSIDE RECORDS SUMMARY | 2024-05-18 07:47 | XMS_ITS | Patient Health Summary ---
Author Organization [facility] Address [address] [facility] [place] [address] Care Team Providers Care Turning Machine Set Up Operator Name Role Phone Mervin Jay DO Primary Care Provider [phone] Note from [facility],non-owned Affiliates and Associated Physician Practices is amultiple site organization consisting of ambulatory clinics and hospital sitesin [place], [place], [place] and [place]. This disclosure is being madepursuant to the Care Everywhere program and may not contain all information available regarding this patient. Last updated 17.[facility] Allergies * Amoxicillin(GI Discomfort) * Doxycycline(Headache) * Morphine(Vomiting) * Sulfa Drugs(Urticaria) -Medium Criticality Medications * Be aware that medications may not be up to date on this document. Alwaysverify current medications with the patient. * levothyroxine (TIROSINT) 88 MCG capsule Take 88 mcg by mouth daily before breakfast * escitalopram (LEXAPRO) 10 MG tablet Take 10 mg by mouth once daily * metoprolol tartrate (LOPRESSOR) 25 MG tablet Take 25 mg by mouth 2 times daily * ALPRAZolam, disintegrating, (NIRAVAM) 0.25 MG tablet Take 0.25 mg by mouth 3 times daily as needed for Anxiety * atorvastatin (LIPITOR) 20 MG tablet Take 20 mg by mouth at bedtime * aspirin (ASPIRIN) 81 MG tablet Take 81 mg by mouth once daily * Cyanocobalamin (B-12) 1000 MCG TABS * vitamin D3 (D3 HIGH POTENCY) 1000 UNIT capsule Take 1,000 Units by mouth once daily * nitroGLYCERIN (NITROSTAT) 0.4 MG tablet Dissolve 0.4 mg under the tongue every 5 minutes as needed for Angina * estrogens, conjugated, (PREMARIN) 0.625 MG/GM vaginal cream Insert 0.5 g into the vagina at bedtime * mupirocin (BACTROBAN) 2 % ointment Apply to affected area 3 times daily * fluticasone propionate (FLONASE) 50 MCG/ACT nasal spray(Started 09/11/2018) [place] 2 sprays into each nostril once daily * diphenhydramine 12.5mg/ml, 30ml,; visc lidocaine 2%, 30ml,; maalox, 30ml, (MIRACLE MOUTHWASH) SUSP(Started 09/11/2018) Swish and spit 10 mL every 4 hours as needed Social History Tobacco Use Types Packs/Day Years [...] Mass Index 28.34 09/11/2018 2:42 PM CDT Procedures * DERMATOPATHOLOGY(Performed 09/25/2020) * STREP A SCREEN - POINT OF CARE (AMB) STL(Performed 09/11/2018) Performed for Acute pharyngitis, unspecified etiology Results * DERMATOPATHOLOGY (09/25/2020 12:00 AM CDT) Case Report Dermatopathology Report Case: [id number] Authorizing Provider: Jakob Marr MD Collected: 09/25/2020 12:00 AM Ordering Location: [facility] DermPath Lab Received: 09/26/2020 01:47 PM Pathologist: Bonny Toure MD Specimen: Skin, left medial lund 1:17 PM CDT DERMATOPATHOLOGY LABORATORY Final Diagnosis Specimen A. SKIN, left medial lund: DERMATOFIBROMA, SUPERFICIAL ASPECT OF (D23.9) EPIDERMAL NECROSIS SUGGESTIVE OF EXCORIATION (L98.499) (see microscopic description) 1:17 PM CDT DERMATOPATHOLOGY LABORATORY Clinical History DF vs irritated nevus vs other 1:17 PM CDT DERMATOPATHOLOGY LABORATORY Gross Description [...] characteristic determined by the Dermatopathology Laboratory at [facility], directed by Dr. Bruce Varghese. These tests need not be, and therefore are not, approved by the [place] Food and Drug Administration. The tests are used for clinical purposes. Billing Codes Specimen Charges Stain Charges 47148 1 1:17 PM CDT DERMATOPATHOLOGY LABORATORY Embedded Images 1:17 PM CDT DERMATOPATHOLOGY LABORATORY Pathology/Cytolog y TISSUE SPECIMEN FROM SKIN / Unknown 09/25/2020 09/26/2020 1:47 PM CDT Jakob Marr MD LAB - PATHOLOGY/CYTO LOGY ORDERABLES DERMATOPATHOLOGY LABORATORY [facility] - Department of Dermatology [facility] [address] [place] [address], [address] [phone] * STREP A SCREEN (09/11/2018 3:04 PM CDT) Strep A Rapid POCT Negative Negative Strep A Internal Control Present Lot # [id number] Expiration Date 02/13/2020 Throat ENTIRE THROAT (SURFACE REGION OF NECK) / Unknown 09/11/2018 3:04 PM CDT Ashley Owen ACID STRENGTH INSPECTOR-RESEARCH PROGRAM ASSISTANT LAB - POIN T OF CARE ORDERABLES Care Teams Turning Machine Set Up Operator Relationship Specialty Start Date End Date Mervin Jay DO PCP - General 09/26/20
--- OUTSIDE RECORDS SUMMARY | 2024-05-18 07:47 | XMS_ITS | Encounter Summary ---
Author Organization [facility] Address [address] [place] [address] Care Team Providers Care Powder Expert Name Role Phone Jina Banda MD Primary Care Provider Unav ailable Encounter Details Date Type Department Care Team (Late st Contact Info) Description 02/28/2006 Outpatient Historical [facility] Internal Medicine - [facility] [address] [address] [facility] [address] [place] [address] Jina Banda MD NO ADDRESS ON FILE Unspecified Hypothyroidism (Primary Dx) Social History Tobacco Use Types Packs/Day Years Used Date Smoking Tobacco: Never Assessed Comments Unknown Sex and Gender Information Value Date Recorded Sex Assigned at Not on file 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 Gender Identity Not on file Sexual Orientation Not on file documented as of this encounter Plan of Treatment Upcoming Encounters Date Type Department Care Team (Late st Contact Info) Description 09/08/2024 12:00 PM CDT Office Visit [facility] Heart and Vascular At [address] [place] [address] Randal Cooley MD [address] [place] [address] 2014 [place] [address] 10/27/2024 10:00 AM CDT Office Visit [facility] Heart and Vascular At [address] [place] [address] Randal Cooley MD [address] [place] [address] 2014 [place] [address] 10/28/2024 9:30 AM CDT Office Visit [facility] U[facility] [address] [place] [address] [place] [address] [facility] [address] [place] [address] documented as of this encounter Procedures Procedure Name Priority Date/Time Associated Diagnosis Comments CBC WITH DIFFERENTIAL Routine 02/28/2006 9:53 AM PAPER AND PULP MILL OPERATOR CBC WITH DIFFERENTIAL Routine 02/28/2006 9:53 AM PAPER AND PULP MILL OPERATOR TSH Routine 02/28/2006 9:53 AM PAPER AND PULP MILL OPERATOR LIPID PANEL Routine 02/28/2006 9:53 AM PAPER AND PULP MILL OPERATOR documented in this encounter Results * CBC WITH DIFFERENTIAL (02/28/2006 9:53 AM PAPER AND PULP MILL OPERATOR) NEUTROPHILS 57 45 - 70 % INTERFAC E SYSTEM LYMPHOCYTES 32 16 - 45 % INTERFAC E SYSTEM MONOCYTES 8 3 - 13 % INTERFACE SYSTEM EOSINOPHILS 2 0 - 7 % INTERFAC E SYSTEM BASOPHILS 1 0 - 2 % INTERFACE SYSTEM NEUTROPHIL ABSOLUTE 2.61 1.90 - 7.00 K/uL INTERFACE SYSTEM LYMPHOCYTE ABSOLUTE 1.49 0.70 - 4.50 K/uL INTERFACE SYSTEM MONOCYTE ABSOLUTE 0.37 0.10 - 1.30 K/uL INTERFACE SYSTEM EOSINOPHIL ABSOLUTE 0.11 0.00 - 0.70 K/uL INTERFACE SYSTEM BASOPHILS ABSOLUTE 0.03 0.00 - 0.20 K/uL INTERFACE SYSTEM 02/28/2006 9:53 AM PAPER AND PULP MILL OPERATOR Jina Banda MD HEMATOLOGY ORDERABLES Final Result INTERFACE SYSTEM Refer to clinic/hospital department * (ABNORMAL) CBC WITH DIFFERENTIAL (02/28/2006 9:53 AM PAPER AND PULP MILL OPERATOR) WBC 4.6 4.0 - 9.8 K/uL INTERFACE SYSTEM RBC 4.04 3.90 - 4.90 M/uL INTERFACE SYSTEM HEMOGLOBIN 11.7(L) 11.8 - 14.8 g/dL INTERFACE SYSTEM HEMATOCRIT 35.7 35.5 - 44.0 % INTERFACE SYSTEM MCV 88.4 82.0 - 99.0 fL INTERFACE SYSTEM MCH 29.0 27.2 - 32.6 pg INTERFACE SYSTEM MCHC 32.8 31.5 - 35.5 % INTERFACE SYSTEM RDW 13.7 11.5 - 14.5 % INTERFACE SYSTEM RDW-STDEV 44.3 37.1 - 48.7 fL INTERFACE SYSTEM PLATELETS 302 140 - 350 K/uL INTERFACE SYSTEM MPV 10.4 9.3 - 12.4 fL INTERFACE SYSTEM 02/28/2006 9:53 AM PAPER AND PULP MILL OPERATOR us Jina Banda MD HEMATOLOGY ORDERABLES Final Result Performing Organization Address City/[facility] Co de Phone Number INTERFACE SYSTEM Refer to clinic/hospital department * TSH (02/28/2006 9:53 AM PAPER AND PULP MILL OPERATOR) TSH 2.24 0.27 - 4.20 uU/mL INTERFACE SYSTEM 02/28/2006 9:53 AM PAPER AND PULP MILL OPERATOR us Jina Banda MD CHEMISTRY ORDERABLES Final Result Performing Organization Address City/[facility] Co de Phone Number INTERFACE SYSTEM Refer to clinic/hospital department * (ABNORMAL) LIPID PANEL (02/28/2006 9:53 AM PAPER AND PULP MILL OPERATOR) CHOLESTEROL 179 100 - 199 mg/dL INTERFACE SYSTEM TRIGLYCERIDE 77 10 - 149 mg/dL INTERFACE SYSTEM HDL 79(H) 40 - 59 mg/dL INTERFACE SYSTEM CHOL/HDL RATIO 2.3 2.0 - 5.0 INTER FACE SYSTEM LDL CALCULATED 85 <=99 mg/dL INTERFACE SYSTEM LIPID PANEL COMMENT See Below INTERFACE SYSTEM Comment: The adult ATP and pediatric NCEP classifications for lipids are available on the [facility] Intranet at: [email or web address] Select: Lab Policies and Procedures Select: Reference Ranges - Lipids 02/28/2006 9:53 AM PAPER AND PULP MILL OPERATOR Jina Banda MD CHEMISTRY ORDERABLES Final Result INTERFACE SYSTEM Refer to clinic/hospital department documented in this encounter Visit Diagnoses Diagnosis Unspecified hypothyroidism- Primary documented in this encounter Additional Health Concerns Infection Onset Date Last Indicated Resolved Time R/O COVID-19 11/08/2019 11/08/2019 11/11/2019 12:3 1 AM CDT R/O COVID-19 02/01/2020 02/01/2020 02/03/2020 2:00 AM PAPER AND PULP MILL OPERATOR documented as of this encounter Care Teams Powder Expert Relationship Specialty Start Date End Date Jina Banda MD PCP - General Internal Medicine 06/20/16 12/03/21 documented as of this encounter
--- OUTSIDE RECORDS SUMMARY | 2024-05-18 07:47 | XMS_ITS | Encounter Summary ---
Author Organization [facility] Address [address] [place] [address] Care Team Providers Care Manager Product Name Role Phone Jina Banda MD Primary Care Provider Unav ailable Encounter Details Date Type Department Care Team (Latest Contact Info) Description 10/25/1998 Outpatient Historical [facility] Chato Aguilera MD [address] [place] [address] Other screening mammogram (Primary Dx) Social History Tobacco Use Types Packs/Day Years Used Date Smoking Tobacco: Never Assessed Comments Unknown Sex and Gender Information Value Date Recorded Sex Assigned at Not on file Legal Sex Female 5:30 AM STUDENT OFFICER Gender Identity Not on file Sexual Orientation Not on file documented as of this encounter Plan of Treatment Upcoming Encounters Date Type Department Care Team (Late st Contact Info) Description 09/08/2024 12:00 PM CDT Office Visit [facility] Heart and Vascular At [address] [place] [address] Randal Cooley MD [address] [place] [address] 2014 [place] [address] 10/27/2024 10:00 AM CDT Office Visit [facility] Heart and Vascular At [address] [place] [address] Randal Cooley MD [address] [place] [address] 2014 [place] [address] 10/28/2024 9:30 AM CDT Office Visit [facility] Urology [facility] [address] [facility] [address] [place] [address] [place] [address] [facility] [address] [place] [address] documented as of this encounter Visit Diagnoses Diagnosis Other screening mammogram- Primary documented in this encounter Additional Health Concerns Infection Onset Date Last Indicated Resolved Time R/O COVID-19 11/08/2019 11/08/2019 11/11/2019 12:3 1 AM CDT R/O COVID-19 02/01/2020 02/01/2020 02/03/2020 2:00 AM STUDENT OFFICER documented as of this encounter Care Teams Manager Product Relationship Specialty Start Date End Date Jina Banda MD PCP - General Internal Medicine 06/20/16 12/03/21 documented as of this encounter
--- OUTSIDE RECORDS SUMMARY | 2024-05-18 07:47 | XMS_ITS | Encounter Summary ---
Author Organization [facility] Address [address] [place] [address] Care Team Providers Care Superintendent Oil Field Drilling Name Role Phone Jina Banda MD Primary Care Provider Unav ailable Encounter Details Date Type Department Care Team (Late st Contact Info) Description 04/14/2005 Outpatient Historical [facility] Adult [facility]ists [address] [phone] Jill Moran MD [address] [place] [id number] Social History Tobacco Use Types Packs/Day Years Used Date Smoking Tobacco: Never Assessed Comments Unknown Sex and Gender Information Value Date Recorded Sex Assigned at Not on file Legal Sex Female 5:30 AM FIRST RESPONDER Gender Identity Not on file Sexual Orientation Not on file documented as of this encounter Plan of Treatment Upcoming Encounters Date Type Department Care Team (Late st Contact Info) Description 09/08/2024 12:00 PM CDT Office Visit [facility] Heart and Vascular At [address] [place] [address] Rnadal Cooley MD [address] [place] [address] 2014 [place] [address] 10/27/2024 10:00 AM CDT Office Visit [facility] Heart and Vascular At [address] [place] [address] Randal Cooley MD [address] [place] [address] 2014 [place] [address] 10/28/2024 9:30 AM CDT Office Visit [facility] Urology [facility] [address] [facility] [address] [place] [address] [place] [address] [facility] [address] [place] [address] documented as of this encounter Visit Diagnoses Not on filedocumented in this encounter Additional Health Concerns Infection Onset Date Last Indicated Resolved Time R/O COVID-19 11/08/2019 11/08/2019 11/11/2019 12:3 1 AM CDT R/O COVID-19 02/01/2020 02/01/2020 02/03/2020 2:00 AM FIRST RESPONDER documented as of this encounter Care Teams Superintendent Oil Field Drilling Relationship Specialty Start Date End Date Jina Banda MD PCP - General Internal Medicine 06/20/16 12/03/21 documented as of this encounter
--- OUTSIDE RECORDS SUMMARY | 2024-05-18 07:47 | XMS_ITS | Encounter Summary ---
Author Organization [facility] Address [address] [place] [address] Care Team Providers Care Anesthesiology Faculty Name Role Phone Jina Banda MD Primary Care Provider Unav ailable Encounter Details Date Type Department Care Team (Late st Contact Info) Description 10/05/2000 Outpatient Historical [facility] Internal Medicine - [facility] [phone] [place] [address] [address] [place] [address] Jina Banda MD NO ADDRESS ON FILE Social History Tobacco Use Types Packs/Day Years Used Date Smoking Tobacco: Never Assessed Comments Unknown Sex and Gender Information Value Date Recorded Sex Assigned at Not on file Legal Sex Female 5:30 AM CORRECTIONAL MAINTENANCE TECHNICIAN Gender Identity Not on file Sexual Orientation Not on file documented as of this encounter Plan of Treatment Upcoming Encounters Date Type Department Care Team (Late st Contact Info) Description 09/08/2024 12:00 PM CDT Office Visit [facility] Heart and Vascular At [address] [place] [address] Randal Cooley MD [address] [place] [address] 2014 [place] [address] 10/27/2024 10:00 AM CDT Office Visit [facility] Heart and Vascular At [address] [place] [address] Randal Cooley MD [address] [place] [address] 2014 [place] [address] 10/28/2024 9:30 AM CDT Office Visit [facility] Urology [facility] [address] [facility] [address] [facility] [address] [place] [address] [place] [address] [facility] [address] [facility] 260 [place] [address] documented as of this encounter Visit Diagnoses Not on filedocumented in this encounter Additional Health Concerns Infection Onset Date Last Indicated Resolved Time R/O COVID-19 11/08/2019 11/08/2019 11/11/2019 12:3 1 AM CDT R/O COVID-19 02/01/2020 02/01/2020 02/03/2020 2:00 AM CORRECTIONAL MAINTENANCE TECHNICIAN documented as of this encounter Care Teams Anesthesiology Faculty Relationship Specialty Start Date End Date Jina Banda MD PCP - General Internal Medicine 06/20/16 12/03/21 documented as of this encounter
--- OUTSIDE RECORDS SUMMARY | 2024-05-18 07:47 | XMS_ITS | Encounter Summary ---
Author Organization [facility] Address [address] [place] [address] Care Team Providers Care Communication Professor Name Role Phone Unavailable Primary Care Provider Unavailabl e Encounter Details Date Type Department Care Team (Late st Contact Info) Description 05/17/2024 External Device Data ST[facility] ABSTRACTION Provider, Abstract NO ADDRESS ON FILE Social History Tobacco Use Types Packs/Day Years Used Date Smoking Tobacco: Never Smokeless Tobacco: Never Alcohol Use Standard Drinks/Week Comments Not Currently 0 (1 standard drink = 0.6 oz pur e alcohol) Comments No Sex and Gender Information Value Date Recorded Sex Assigned at Not on file Legal Sex Female 5:30 AM DISTRIBUTION MANAGER Gender Identity Not on file Sexual Orientation Not on file Occupation Industry Job Start Date Job End Date Not on file Not on file Not on file Not on file documented as of this encounter Plan of Treatment Upcoming Encounters Date Type Department Care Team (Late st Contact Info) Description 09/08/2024 12:00 PM CDT Office Visit [facility] Heart and Vascular At [address] [place] [address] Randal Cooley MD [address] [place] [address] 2014 [place] [address] 10/27/2024 10:00 AM CDT Office Visit [facility] Heart and Vascular At [address] [place] [address] Randal Cooley MD [address] [place] [address] 2014 [place] [address] 10/28/2024 9:30 AM CDT Office Visit [facility] [address] [facility] [address] [place] [address] [place] [address] [facility] 260 [place] [address] documented as of this encounter Visit Diagnoses Not on filedocumented in this encounter
--- OUTSIDE RECORDS SUMMARY | 2024-05-18 07:47 | XMS_ITS | Encounter Summary ---
Author Organization [facility] Address [address] [place] [address] Care Team Providers Care Jewel Oliving Machine Operator Name Role Phone Jina Banda MD Primary Care Provider Unav ailable Encounter Details Date Type Department Care Team (Late st Contact Info) Description 04/29/2008 Outpatient Historical [facility] Jina Banda MD NO ADDRESS ON FILE Unspecified Iron Deficiency Anemia Social History Tobacco Use Types Packs/Day Years Used Date Smoking Tobacco: Never Alcohol Use Standard Drinks/Week Comments Not Asked 0 (1 standard drink = 0.6 oz pur e alcohol) Comments No Sex and Gender Information Value Date Recorded Sex Assigned at Not on file Legal Sex Female 5:30 AM LIQUEFACTION SUPERVISOR Gender Identity Not on file Sexual Orientation Not on file documented as of this encounter Plan of Treatment Upcoming Encounters Date Type Department Care Team (Late st Contact Info) Description 09/08/2024 12:00 PM CDT Office Visit [facility] Heart and Vascular At [address] [place] [address] Randal Cooley MD [address] [place] [address] [address] [place] [address] 10/27/2024 10:00 AM CDT Office Visit [facility] Heart and Vascular At [address] [place] [address] Randal Cooley MD [address] [place] [address] [address] [place] [address] 10/28/2024 9:30 AM CDT Office Visit [facility] Urology [facility] [address] [facility] [address] [place] [address] [place] [address] [facility] [address] [facility] 260 [place] [address] documented as of this encounter Visit Diagnoses Diagnosis Iron deficiency anemia, unspecified documented in this encounter Additional Health Concerns Infection Onset Date Last Indicated Resolved Time R/O COVID-19 11/08/2019 11/08/2019 11/11/2019 12:3 1 AM CDT R/O COVID-19 02/01/2020 02/01/2020 02/03/2020 2:00 AM LIQUEFACTION SUPERVISOR documented as of this encounter Care Teams Jewel Oliving Machine Operator Relationship Specialty Start Date End Date Jina Banda MD PCP - General Internal Medicine 06/20/16 12/03/21 documented as of this encounter
--- OUTSIDE RECORDS SUMMARY | 2024-05-18 07:47 | XMS_ITS | Encounter Summary ---
Author Organization [facility] Address [address] [place] [address] Care Team Providers Care Network Planner Name Role Phone Jina Banda MD Primary Care Provider Unav ailable Encounter Details Date Type Department Care Team (Late st Contact Info) Description 12/22/2005 Outpatient Historical [facility] Internal Medicine - [facility] [id number] [place] [address] [address] [place] [address] Jina Banda MD NO ADDRESS ON FILE Social History Tobacco Use Types Packs/Day Years Used Date Smoking Tobacco: Never Assessed Comments Unknown Sex and Gender Information Value Date Recorded Sex Assigned at Not on file Legal Sex Female 5:30 AM CNC CUTTING OPERATOR Gender Identity Not on file Sexual Orientation Not on file documented as of this encounter Last Filed Vital Signs Vital Sign Reading Time Taken Comments Blood Pressure 110/80 12/22/2005 9:45 AM CDT Pulse 68 12/22/2005 9:45 AM CDT Temperature 36.6 C (97.9 F) 12/22/2005 9:45 AM CDT Respiratory Rate - - Oxygen Saturation - - Inhaled Oxygen Concentration - - Weight - - Height - - Body Mass Index - - documented in this encounter Plan of Treatment Upcoming Encounters Date Type Department Care Team (Late st Contact Info) Description 09/08/2024 12:00 PM CDT Office Visit [facility] Heart and Vascular At [address] [place] [address] Randal Cooley MD [address] [place] [address] 2014 [place] [address] 10/27/2024 10:00 AM CDT Office Visit [facility] Heart and Vascular At [address] [place] [address] Randal Cooley MD [address] [facility] 2014 [place] [address] 10/28/2024 9:30 AM CDT Office Visit [facility] Urology [facility] [address] [address] [facility] [address] [place] [address] [place] [address] [facility] 260 [place] [address] documented as of this encounter Visit Diagnoses Not on filedocumented in this encounter Additional Health Concerns Infection Onset Date Last Indicated Resolved Time R/O COVID-19 11/08/2019 11/08/2019 11/11/2019 12:3 1 AM CDT R/O COVID-19 02/01/2020 02/01/2020 02/03/2020 2:00 AM CNC CUTTING OPERATOR documented as of this encounter Care Teams Network Planner Relationship Specialty Start Date End Date Jina Banda MD PCP - General Internal Medicine 06/20/16 12/03/21 documented as of this encounter
--- OUTSIDE RECORDS SUMMARY | 2024-05-18 07:47 | XMS_ITS | Encounter Summary ---
Author Organization [facility] Address [address] [place] [address] Care Team Providers Care Type Proof Reproducer Name Role Phone Jina Banda MD Primary Care Provider Unav ailable Encounter Details Date Type Department Care Team (Late st Contact Info) Description 02/12/2000 Outpatient Historical [facility] Internal Medicine - [facility] [phone] [place] [address] [address] [place] [address] Jina Banda MD NO ADDRESS ON FILE Social History Tobacco Use Types Packs/Day Years Used Date Smoking Tobacco: Never Assessed Comments Unknown Sex and Gender Information Value Date Recorded Sex Assigned at Not on file Legal Sex Female 5:30 AM SUPERINTENDENT HORTICULTURE Gender Identity Not on file Sexual Orientation Not on file documented as of this encounter Plan of Treatment Upcoming Encounters Date Type Department Care Team (Late st Contact Info) Description 09/08/2024 12:00 PM CDT Office Visit [facility] Heart and Vascular At [address] [place] [address] Randal Cooley MD [address] [place] [address] 2014 [place] [address] 10/27/2024 10:00 AM CDT Office Visit [facility] Heart and Vascular At [address] [place] [address] Randal Cooley MD [address] [place] [address] 2014 [place] [address] 10/28/2024 9:30 AM CDT Office Visit [facility] Urology [facility] [address] [facility] [address] [place] [address] [place] [address] [facility] [address] [facility] [address] [place] [address] documented as of this encounter Visit Diagnoses Not on filedocumented in this encounter Additional Health Concerns Infection Onset Date Last Indicated Resolved Time R/O COVID-19 11/08/2019 11/08/2019 11/11/2019 12:3 1 AM CDT R/O COVID-19 02/01/2020 02/01/2020 02/03/2020 2:00 AM SUPERINTENDENT HORTICULTURE documented as of this encounter Care Teams Type Proof Reproducer Relationship Specialty Start Date End Date Jina Banda MD PCP - General Internal Medicine 06/20/16 12/03/21 documented as of this encounter
--- OUTSIDE RECORDS SUMMARY | 2024-05-18 07:47 | XMS_ITS | Encounter Summary ---
Author Organization [facility] Address [address] [place] [address] Care Team Providers Care Street Car Inspector Name Role Phone Jina Banda MD Primary Care Provider Unav ailable Encounter Details Date Type Department Care Team (Late st Contact Info) Description 05/15/1999 Outpatient Historical [facility] Internal Medicine - [facility] [phone] [place] [address] [address] [place] [address] Jina Banda MD NO ADDRESS ON FILE Social History Tobacco Use Types Packs/Day Years Used Date Smoking Tobacco: Never Assessed Comments Unknown Sex and Gender Information Value Date Recorded Sex Assigned at Not on file Legal Sex Female 5:30 AM COP Gender Identity Not on file Sexual Orientation Not on file documented as of this encounter Plan of Treatment Upcoming Encounters Date Type Department Care Team (Late st Contact Info) Description 09/08/2024 12:00 PM CDT Office Visit [facility]3] Heart and Vascular At [address] [place] [address] Randal Cooley MD [address] [place] [address] 2014 [place] [address] 10/27/2024 10:00 AM CDT Office Visit [facility]3] Heart and Vascular At [address] [place] [address] Randal Cooley MD [address] [place] [address] 2014 [place] [address] 10/28/2024 9:30 AM CDT Office Visit [facility]3] Urology [facility] [address] [facility] [address] [facility] [address] [place] [address] [place] [address] [facility] [address] [facility] [address] [place] [address] documented as of this encounter Visit Diagnoses Not on filedocumented in this encounter Additional Health Concerns Infection Onset Date Last Indicated Resolved Time R/O COVID-19 11/08/2019 11/08/2019 11/11/2019 12:3 1 AM CDT R/O COVID-19 02/01/2020 02/01/2020 02/03/2020 2:00 AM COP documented as of this encounter Care Teams Street Car Inspector Relationship Specialty Start Date End Date Jina Banda MD PCP - General Internal Medicine 06/20/16 12/03/21 documented as of this encounter
--- OUTSIDE RECORDS SUMMARY | 2024-05-18 07:47 | XMS_ITS | Encounter Summary ---
Author Organization [facility] Address [address] [place] [address] Care Team Providers Care Tenterer Name Role Phone Jina Banda MD Primary Care Provider Unav ailable Encounter Details Date Type Department Care Team (Late st Contact Info) Description 04/14/2005 Outpatient Historical [facility] Internal Medicine - [facility] [id number] [place] [address] [address] [place] [address] Jina Banda MD NO ADDRESS ON FILE Social History Tobacco Use Types Packs/Day Years Used Date Smoking Tobacco: Never Assessed Comments Unknown Sex and Gender Information Value Date Recorded Sex Assigned at Not on file Legal Sex Female 5:30 AM YOKER MACHINE OPERATOR Gender Identity Not on file Sexual Orientation Not on file documented as of this encounter Plan of Treatment Upcoming Encounters Date Type Department Care Team (Late st Contact Info) Description 09/08/2024 12:00 PM CDT Office Visit [facility] Heart and Vascular At [address] [place] [address] Randal Cooley MD [address] [place] [address] [address] [place] [address] 10/27/2024 10:00 AM CDT Office Visit [facility] Heart and Vascular At [address] [place] [address] Randal Cooley MD [address] [place] [address] [address] [place] [address] 10/28/2024 9:30 AM CDT Office Visit [facility] Urology [facility] [address] [facility] [address] [place] [address] [place] [address] [facility] [address] [facility] [address] [place] [address] documented as of this encounter Visit Diagnoses Not on filedocumented in this encounter Additional Health Concerns Infection Onset Date Last Indicated Resolved Time R/O COVID-19 11/08/2019 11/08/2019 11/11/2019 12:3 1 AM CDT R/O COVID-19 02/01/2020 02/01/2020 02/03/2020 2:00 AM YOKER MACHINE OPERATOR documented as of this encounter Care Teams Tenterer Relationship Specialty Start Date End Date Jina Banda MD PCP - General Internal Medicine 06/20/16 12/03/21 documented as of this encounter
--- OUTSIDE RECORDS SUMMARY | 2024-05-18 07:48 | XMS_ITS | Encounter Summary ---
Author Organization [facility] Address [address] [place] [address] Care Team Providers Care Field Support Rep Name Role Phone Jina Banda MD Primary Care Provider Unav ailable Encounter Details Date Type Department Care Team (Late st Contact Info) Description 12/09/2006 Orders Only [facility] Internal Medicine - [facility] [address] [address] [facility] [address] [place] [address] Jina Banda MD NO ADDRESS ON FILE Social History Tobacco Use Types Packs/Day Years Used Date Smoking Tobacco: Never Assessed Comments Unknown Sex and Gender Information Value Date Recorded Sex Assigned at Not on file Legal Sex Female 5:30 AM THREADER OPERATOR Gender Identity Not on file Sexual Orientation Not on file documented as of this encounter Progress Notes * Jina Banda MD - 07/30/2007 6:42 PM CDT TIME:09:45 am PATIENT`S HOME PHONE: PATIENT`S WORK PHONE: PATIENT`S INSURANCE: [facility] WHO TOOK THE CALL: Natasha Krishnan GENERAL INFORMATION PCP: m[facility]ie PHARMACY NUMBER: [phone] SECTION 1: REQUESTED ACTION [email or web address] 12/09/06 at 09:46 am: MEDICATION REQUEST: MEDICATION REQUEST: Patient requests a refill. MEDICATIONS: LEVOTHYROXINE SODIUM ORAL TABLET 112 MCG, 1 Every Day, 30 Dispensed, 6 Fills, status: CONTINUED, 03/23/2006. DOCTOR`S RESPONSE: herlinda 12/09/06 at 12:54 pm MEDICATIONS: LEVOTHYROXINE SODIUM ORAL TABLET 112 MCG, 1 Every Day, 30 Dispensed, 6 Fills, status: CONTINUED, 12/09/2006. SECTION 2: FINAL ACTION: [email or web address] 12/09/06 at 01:27 pm Called pharmacy at 12/09/06 at 01:27 pm. ds Electronically Signed by: Kecia Diego on Saturday, December 09, 2006 documented in this encounter Plan of Treatment Upcoming Encounters Date Type Department Care Team (Late st Contact Info) Description 09/08/2024 12:00 PM CDT Office Visit [facility] Heart and Vascular At [address] [place] [address] Randal Cooley MD [address] [place] [address] 2014 [place] [address] 10/27/2024 10:00 AM CDT Office Visit [facility] Heart and Vascular At [address] [place] [address] Randal Cooley MD [address] [place] [address] [address] [place] [address] 10/28/2024 9:30 AM CDT Office Visit [facility] Urology [facility] [address] [id number] [place] [address] [phone] documented as of this encounter Visit Diagnoses Not on filedocumented in this encounter Additional Health Concerns Infection Onset Date Last Indicated Resolved Time R/O COVID-19 11/08/2019 11/08/2019 11/11/2019 12:3 1 AM CDT R/O COVID-19 02/01/2020 02/01/2020 02/03/2020 2:00 AM THREADER OPERATOR documented as of this encounter Care Teams Field Support Rep Relationship Specialty Start Date End Date Jina Banda MD PCP - General Internal Medicine 06/20/16 12/03/21 documented as of this encounter
--- OUTSIDE RECORDS SUMMARY | 2024-05-18 07:48 | XMS_ITS | Encounter Summary ---
Author Organization [facility] Address [address] [place] [address] Care Team Providers Care Fluid Jet Cutter Operator Name Role Phone Jina Banda MD Primary Care Provider Unav ailable Encounter Details Date Type Department Care Team (Late st Contact Info) Description 03/19/2007 Outpatient Historical [facility] [address] [place] [address] Malcolm You MD [address] [place] [address] [address] [place] [address] Social History Tobacco Use Types Packs/Day Years Used Date Smoking Tobacco: Never Assessed Comments Unknown Sex and Gender Information Value Date Recorded Sex Assigned at Not on file Legal Sex Female 5:30 AM INFORMATION AND DATA ARCHITECT ANALYST Gender Identity Not on file Sexual Orientation Not on file documented as of this encounter Plan of Treatment Upcoming Encounters Date Type Department Care Team (Late Contact Info) Description 09/08/2024 12:00 PM CDT Office Visit [facility] Heart and Vascular At [address] [place] [address] Randal Cooley MD [address] [place] [address] [address] [place] [address] 10/27/2024 10:00 AM CDT Office Visit [facility] Heart and Vascular At [address] [place] [address] Randal Cooley MD [address] [place] [address] [address] [place] [address] 10/28/2024 9:30 AM CDT Office Visit [facility] Urology [facility] [address] [facility] [address] [place] [address] [place] [address] [facility] [address] [place] [address] documented as of this encounter Visit Diagnoses Not on filedocumented in this encounter Additional Health Concerns Infection Onset Date Last Indicated Resolved Time R/O COVID-19 11/08/2019 11/08/2019 11/11/2019 12:3 1 AM CDT R/O COVID-19 02/01/2020 02/01/2020 02/03/2020 2:00 AM INFORMATION AND DATA ARCHITECT ANALYST documented as of this encounter Care Teams Fluid Jet Cutter Operator Relationship Specialty Start Date End Date Jina Banda MD PCP - General Internal Medicine 06/20/16 12/03/21 documented as of this encounter
--- OUTSIDE RECORDS SUMMARY | 2024-05-18 07:48 | XMS_ITS | Encounter Summary ---
Author Organization [facility] Address [address] [place] [address] Care Team Providers Care Catheter Builder Name Role Phone Jina Banda MD Primary Care Provider Unav ailable Encounter Details Date Type Department Care Team (Late st Contact Info) Description 06/30/2007 Orders Only [facility] Internal Medicine - [facility] [address] [address] [facility] [address] [place] [address] Jina Banda MD NO ADDRESS ON FILE Social History Tobacco Use Types Packs/Day Years Used Date Smoking Tobacco: Never Assessed Comments Unknown Sex and Gender Information Value Date Recorded Sex Assigned at Not on file Legal Sex Female 5:30 AM MARKET RESEARCH ANALYST Gender Identity Not on file Sexual Orientation Not on file documented as of this encounter Progress Notes * Jina Banda MD - 08/20/2007 10:30 AM CDT TIME:11:04 am PATIENT`S HOME PHONE: PATIENT`S WORK PHONE: PATIENT`S INSURANCE: [facility] WHO TOOK THE CALL: Vivi Rock A GENERAL INFORMATION PCP: inocencia PHARMACY NUMBER: [phone] SECTION 1: REQUESTED ACTION [email or web address] 06/30/07 at 11:05 am: MEDICATION REQUEST: MEDICATIONS: PAROXETINE HCL ORAL TABLET 10 MG, 1/2 tab qd, 30 Dispensed, status: NEW PRESCRIPTION, 05/26/2007. Rx request says 1 tab QD? Last RF 05/21/07 RECEIVED FAXED REQUEST FROM THE PHARMACY [facility]. [place]. DOCTOR`S RESPONSE: herlinda 06/30/07 at 12:45 pm MEDICATIONS: PAROXETINE HCL ORAL TABLET 10 MG, 1/2 tab qd, 30 Dispensed, status: DISCONTINUED, 06/30/2007. PAROXETINE HCL ORAL TABLET 10 MG, 1 Every Day, 30 Dispensed, 6 Fills, status: NEW PRESCRIPTION, 06/30/2007. FINAL ACTION: [email or web address] 06/30/07 at 01:02 pm Called pharmacy at 06/30/07 at 01:02 pm. Electronically Signed by: Maria Eugenia Wells on Saturday, June 30, 2007 documented in this encounter Plan of Treatment Upcoming Encounters Date Type Department Care Team (Late st Contact Info) Description 09/08/2024 12:00 PM CDT Office Visit [facility] Heart and Vascular At [address] [place] [address] Randal Cooley MD [address] [place] [address] 2014 [place] [address] 10/27/2024 10:00 AM CDT Office Visit [facility] Heart and Vascular At [address] [place] [address] Randal Cooley MD [address] [place] [address] 2014 [place] [address] 10/28/2024 9:30 AM CDT Office Visit [facility] Urology [facility] [address] [facility] [address] [place] [address] [place] [address] [facility] [place] [address] [place] [address] documented as of this encounter Visit Diagnoses Not on filedocumented in this encounter Additional Health Concerns Infection Onset Date Last Indicated Resolved Time R/O COVID-19 11/08/2019 11/08/2019 11/11/2019 12:3 1 AM CDT R/O COVID-19 02/01/2020 02/01/2020 02/03/2020 2:00 AM MARKET RESEARCH ANALYST documented as of this encounter Care Teams Catheter Builder Relationship Specialty Start Date End Date Jina Banda MD PCP - General Internal Medicine 06/20/16 12/03/21 documented as of this encounter
--- OUTSIDE RECORDS SUMMARY | 2024-05-18 07:48 | XMS_ITS | Encounter Summary ---
Author Organization [facility] Address [address] [place] [address] Care Team Providers Care Feltmaker Name Role Phone Jina Banda MD Primary Care Provider Unav ailable Encounter Details Date Type Department Care Team (Late st Contact Info) Description 05/26/2007 Outpatient Historical [facility] Internal Medicine - [facility] [id number] [place] [address] [address] [place] [address] Jina Banda MD NO ADDRESS ON FILE Social History Tobacco Use Types Packs/Day Years Used Date Smoking Tobacco: Never Assessed Comments Unknown Sex and Gender Information Value Date Recorded Sex Assigned at Not on file Legal Sex Female 5:30 AM CELLOPHANE BATH MIXER Gender Identity Not on file Sexual Orientation Not on file documented as of this encounter Plan of Treatment Upcoming Encounters Date Type Department Care Team (Late st Contact Info) Description 09/08/2024 12:00 PM CDT Office Visit [facility] Heart and Vascular At [address] [place] [address] Randal Cooley MD [address] [place] [address] [address] [place] [address] 10/27/2024 10:00 AM CDT Office Visit [facility] Heart and Vascular At [address] [place] [address] Randal Cooley MD [address] [place] [address] [address] [place] [address] 10/28/2024 9:30 AM CDT Office Visit [facility] Urology [facility] [address] [facility] [address] [facility] [address] [place] [address] [place] [address] [facility] [facility] [facility] [address] [facility] [address] [place] [address] documented as of this encounter Visit Diagnoses Not on filedocumented in this encounter Additional Health Concerns Infection Onset Date Last Indicated Resolved Time R/O COVID-19 11/08/2019 11/08/2019 11/11/2019 12:3 1 AM CDT R/O COVID-19 02/01/2020 02/01/2020 02/03/2020 2:00 AM CELLOPHANE BATH MIXER documented as of this encounter Care Teams Feltmaker Relationship Specialty Start Date End Date Jina Banda MD PCP - General Internal Medicine 06/20/16 12/03/21 documented as of this encounter
--- OUTSIDE RECORDS SUMMARY | 2024-05-18 07:48 | XMS_ITS | Encounter Summary ---
Author Organization [facility] Address [address] [place] [address] Care Team Providers Care Inhalation Therapy Aides Teacher Name Role Phone Jina Banda MD Primary Care Provider Unav ailable Encounter Details Date Type Department Care Team (Late st Contact Info) Description 05/26/2007 Outpatient Historical [facility] Internal Medicine - [facility] [id number] [place] [address] [address] [place] [address] Jina Banda MD NO ADDRESS ON FILE Social History Tobacco Use Types Packs/Day Years Used Date Smoking Tobacco: Never Assessed Comments Unknown Sex and Gender Information Value Date Recorded Sex Assigned at Not on file Legal Sex Female 5:30 AM TEXTILES SALES REPRESENTATIVE Gender Identity Not on file Sexual Orientation Not on file documented as of this encounter Plan of Treatment Upcoming Encounters Date Type Department Care Team (Late st Contact Info) Description 09/08/2024 12:00 PM CDT Office Visit [facility] Heart and Vascular At [address] [place] [address] Randal Cooley MD [address] [place] [address] 2014 [place] [address] 10/27/2024 10:00 AM CDT Office Visit [facility] Heart and Vascular At [address] [place] [address] Randal Cooley MD [address] [place] [address] 2014 [place] [address] 10/28/2024 9:30 AM CDT Office Visit [facility] Urology [facility] [address] [facility] [address] [place] [address] [place] [address] [facility] [address] [facility] [address] [place] [address] documented as of this encounter Visit Diagnoses Not on filedocumented in this encounter Additional Health Concerns Infection Onset Date Last Indicated Resolved Time R/O COVID-19 11/08/2019 11/08/2019 11/11/2019 12:3 1 AM CDT R/O COVID-19 02/01/2020 02/01/2020 02/03/2020 2:00 AM TEXTILES SALES REPRESENTATIVE documented as of this encounter Care Teams Inhalation Therapy Aides Teacher Relationship Specialty Start Date End Date Jina Banda MD PCP - General Internal Medicine 06/20/16 12/03/21 documented as of this encounter
--- OUTSIDE RECORDS SUMMARY | 2024-05-18 07:48 | XMS_ITS | Encounter Summary ---
Author Organization [facility] Address [address] [place] [address] Care Team Providers Care Instant Printer Operator Name Role Phone Jina Banda MD Primary Care Provider Unav ailable Encounter Details Date Type Department Care Team (Late st Contact Info) Description 06/04/2007 Orders Only [facility] Internal Medicine - [facility] [address] [address] [facility] [address] [place] [address] Jina Banda MD NO ADDRESS ON FILE Social History Tobacco Use Types Packs/Day Years Used Date Smoking Tobacco: Never Assessed Comments Unknown Sex and Gender Information Value Date Recorded Sex Assigned at Not on file Legal Sex Female 5:30 AM PERL PROGRAMMER Gender Identity Not on file Sexual Orientation Not on file documented as of this encounter Plan of Treatment Upcoming Encounters Date Type Department Care Team (Late st Contact Info) Description 09/08/2024 12:00 PM CDT Office Visit [facility] Heart and Vascular At [address] [place] [address] Randal Cooley MD [address] [place] [address] 2014 [place] [address] 10/27/2024 10:00 AM CDT Office Visit [facility] Heart and Vascular At [address] [place] [address] Randal Cooley MD [address] [place] [address] 2014 [place] [address] 10/28/2024 9:30 AM CDT Office Visit [facility] Urology [facility] [address] [facility] [address] [place] [address] [place] [address] [facility] [address] [facility] [address] [place] [address] documented as of this encounter Visit Diagnoses Not on filedocumented in this encounter Additional Health Concerns Infection Onset Date Last Indicated Resolved Time R/O COVID-19 11/08/2019 11/08/2019 11/11/2019 12:3 1 AM CDT R/O COVID-19 02/01/2020 02/01/2020 02/03/2020 2:00 AM PERL PROGRAMMER documented as of this encounter Care Teams Instant Printer Operator Relationship Specialty Start Date End Date Jina Banda MD PCP - General Internal Medicine 06/20/16 12/03/21 documented as of this encounter
--- OUTSIDE RECORDS SUMMARY | 2024-05-18 07:48 | XMS_ITS | Encounter Summary ---
Author Organization [facility] Address [address] [place] [address] Care Team Providers Care Wood Floor Layer Name Role Phone Jina Banda MD Primary Care Provider Unav ailable Encounter Details Date Type Department Care Team (Late st Contact Info) Description 02/01/2007 Outpatient Historical [facility], NO ADDRESS ON FILE Other Screening Mammogram (Primary Dx) Social History Tobacco Use Types Packs/Day Years Used Date Smoking Tobacco: Never Assessed Comments Unknown Sex and Gender Information Value Date Recorded Sex Assigned at Not on file Legal Sex Female 5:30 AM SEXUAL ABUSE COUNSELLOR Gender Identity Not on file Sexual Orientation Not on file documented as of this encounter Plan of Treatment Upcoming Encounters Date Type Department Care Team (Late st Contact Info) Description 09/08/2024 12:00 PM CDT Office Visit [facility] Heart and Vascular At [address] [address] Randal Cooely MD [address] [place] [address] 2014 [place] [address] 10/27/2024 10:00 AM CDT Office Visit [facility] Heart and Vascular At [address] [address] Randal Cooley MD [address] [place] [address] 2014 [place] [address] 10/28/2024 9:30 AM CDT Office Visit [facility] Urology [facility] [address] [facility] [address] [address] [place] [address] [facility] [address] [place] [address] documented as of this encounter Visit Diagnoses Diagnosis Other screening mammogram- Primary documented in this encounter Additional Health Concerns Infection Onset Date Last Indicated Resolved Time R/O COVID-19 11/08/2019 11/08/2019 11/11/2019 12:3 1 AM CDT R/O COVID-19 02/01/2020 02/01/2020 02/03/2020 2:00 AM SEXUAL ABUSE COUNSELLOR documented as of this encounter Care Teams Wood Floor Layer Relationship Specialty Start Date End Date Jina Banda MD PCP - General Internal Medicine 06/20/16 12/03/21 documented as of this encounter
--- OUTSIDE RECORDS SUMMARY | 2024-05-18 07:48 | XMS_ITS | Encounter Summary ---
Author Organization [facility] Address [address] [place] [address] Care Team Providers Care Statistics Professor Name Role Phone Jina Banda MD Primary Care Provider Unav ailable Encounter Details Date Type Department Care Team (Late st Contact Info) Description 05/26/[address] [facility] Internal Medicine - [facility] [address] [id number] [facility] [address] [place] [address] Jina Banda MD NO ADDRESS ON FILE Acute Pharyngitis Social History Tobacco Use Types Packs/Day Years Used Date Smoking Tobacco: Never Assessed Comments Unknown Sex and Gender Information Value Date Recorded Sex Assigned at Not on file Legal Sex Female 5:30 AM CHIEF OF HARBOR PATROL Gender Identity Not on file Sexual Orientation Not on file documented as of this encounter Plan of Treatment Upcoming Encounters Date Type Department Care Team (Late st Contact Info) Description 09/08/2024 12:00 PM CDT Office Visit [facility] Heart and Vascular At [address] [place] [address] Randal Cooley MD [address] [place] [address] [address] [place] [address] 10/27/2024 10:00 AM CDT Office Visit [facility] Heart and Vascular At [address] [place] [address] Randal Cooley MD [address] [place] [address] [address] [place] [address] 10/28/2024 9:30 AM CDT Office Visit [facility] Urology [facility] [address] [place] [address] [place] [address] [place] [address] documented as of this encounter Procedures Procedure Name Priority Date/Time Associated Diagnosis Comments CBC WITH DIFFERENTIAL Routine 05/26/2007 4:10 PM CDT TSH Routine 05/26/2007 4:10 PM CDT documented in this encounter Results * (ABNORMAL) CBC WITH DIFFERENTIAL (05/26/2007 4:10 PM CDT) PLATELETS 321 140 - 350 K/uL [facility] HEMOGLOBIN 11.7(L) 11.8 - 14.8 g/dL [facility] RDW 14.4 11.5 - 14.5 % [facility] WBC 6.6 4.0 - 9.8 K/uL [facility] MCH 28.1 27.2 - 32.6 pg [facility] MPV 10.8 9.3 - 12.4 fL [facility] HEMATOCRIT 36.7 35.5 - 44.0 % [facility] RDW-STDEV 46.8 37.1 - 48.7 fL [facility] RBC 4.16 3.90 - 4.90 M/uL [facility] MCHC 31.9 31.5 - 35.5 % [facility] MCV 88.2 82.0 - 99.0 fL [facility] EOSINOPHILS 2 0 - 7 % [facility] EOSINOPHIL ABSOLUTE 0.13 0.00 - 0.70 K/uL [facility] LYMPHOCYTES 26 16 - 45 % [facility] LYMPHOCYTE ABSOLUTE 1.74 0.70 - 4.50 K/uL [facility] BASOPHILS 1 0 - 2 % [facility] BASOPHILS ABSOLUTE 0.04 0.00 - 0.20 K/uL [facility] MONOCYTES 8 3 - 13 % [facility] MONOCYTE ABSOLUTE 0.52 0.10 - 1.30 K/uL [facility] NEUTROPHILS 63 45 - 70 % [facility] NEUTROPHIL ABSOLUTE 4.18 1.90 - 7.00 K/uL [facility] Blood specimen (specimen) 05/26/2007 4:10 PM CDT 05/26/2007 8:29 PM CDT us Jina Banda MD HEMATOLOGY ORDERABLES Edite d Performing Organization Address City/State/[facility] Co de Phone Number INTERFACE SYSTEM Refer to clinic/hospital department [facility] [address] [place] [address] * (ABNORMAL) TSH (05/26/2007 4:10 PM CDT) TSH 10.66(H) 0.27 - 4.20 uU/mL [facility] Blood specimen (specimen) 05/26/2007 4:10 PM CDT 05/26/2007 8:29 PM CDT us Jina Banda MD CHEMISTRY ORDERABLES Final Result Performing Organization Address [facility] Co de Phone Number [facility] [address] [place] [address] documented in this encounter Visit Diagnoses Diagnosis Acute pharyngitis documented in this encounter Additional Health Concerns Infection Onset Date Last Indicated Resolved Time R/O COVID-19 11/08/2019 11/08/2019 11/11/2019 12:3 1 AM CDT R/O COVID-19 02/01/2020 02/01/2020 02/03/2020 2:00 AM CHIEF OF HARBOR PATROL documented as of this encounter Care Teams Statistics Professor Relationship Specialty Start Date End Date Jina Banda MD PCP - General Internal Medicine 06/20/16 12/03/21 documented as of this encounter
--- OUTSIDE RECORDS SUMMARY | 2024-05-18 07:48 | XMS_ITS | Encounter Summary ---
Author Organization [facility] Address [address] [place] [address] Care Team Providers Care Engineering Documentation Specialist Name Role Phone Jina Banda MD Primary Care Provider Unav ailable Encounter Details Date Type Department Care Team (Latest Contact Info) Description 02/15/2007 Outpatient Historical [facility] Sports Rehabilitation [address] [place] [address] Malcolm You MD [address] [place] [address] [address] [place] [address] Pain in Joint, Pelvic Region and Thigh (Primary Dx) Social History Tobacco Use Types Packs/Day Years Used Date Smoking Tobacco: Never Assessed Comments Unknown Sex and Gender Information Value Date Recorded Sex Assigned at Not on file Legal Sex Female 5:30 AM PODIATRIC FOOT AND ANKLE SPECIALIST Gender Identity Not on file Sexual Orientation Not on file documented as of this encounter Plan of Treatment Upcoming Encounters Date Type Department Care Team (Late st Contact Info) Description 09/08/2024 12:00 PM CDT Office Visit [facility] Heart and Vascular At [address] [place] [address] Randal Cooley MD [address] [place] [address] [address] [place], [place] [id number] 10/27/2024 10:00 AM CDT Office Visit [facility] Heart and Vascular At [address] [place] [address] Randal Cooley MD [address] [place] [address] 2015 [place] [address] 10/28/2024 9:30 AM CDT Office Visit [facility] Urology [facility] [address] [facility] [address] [place] [address] [place] [address] [facility] [address] [place] [address] documented as of this encounter Visit Diagnoses Diagnosis Pain in joint, pelvic region and thigh- Primary documented in this encounter Additional Health Concerns Infection Onset Date Last Indicated Resolved Time R/O COVID-19 11/08/2019 11/08/2019 11/11/2019 12:3 1 AM CDT R/O COVID-19 02/01/2020 02/01/2020 02/03/2020 2:00 AM PODIATRIC FOOT AND ANKLE SPECIALIST documented as of this encounter Care Teams Engineering Documentation Specialist Relationship Specialty Start Date End Date Jina Banda MD PCP - General Internal Medicine 06/20/16 12/03/21 documented as of this encounter
--- OUTSIDE RECORDS SUMMARY | 2024-05-18 07:48 | XMS_ITS | Encounter Summary ---
Author Organization [facility] Address [address] [place] [address] Care Team Providers Care College Dean Name Role Phone Jina Banda MD Primary Care Provider Unav ailable Encounter Details Date Type Department Care Team (Late st Contact Info) Description 05/26/2007 Orders Only [facility] Internal Medicine - [facility] [address] [address] [facility] [address] [place] [address] Jina Banda MD NO ADDRESS ON FILE Social History Tobacco Use Types Packs/Day Years Used Date Smoking Tobacco: Never Assessed Comments Unknown Sex and Gender Information Value Date Recorded Sex Assigned at Not on file Legal Sex Female 5:30 AM RESERVOIR ENGINEERING MANAGER Gender Identity Not on file Sexual Orientation Not on file documented as of this encounter Progress Notes * Jina Banda MD - 08/19/2007 6:07 PM CDT PULSE: 60 Right Radial, Regular BLOOD PRESSURE: 130/84 Left Arm Sitting TEMPERATURE: 97.7??f Oral WEIGHT: 141lbs NURSE NAME: Nohemy Hernandez M ALLERGIES: Allergies are as listed. TOBACCO USE Patient does not currently use tobacco. MEDICATIONS: Medication list current. CHIEF COMPLAINT Patient complains of sore throat., sore neck glands HISTORY: HISTORY: Presents with sore throat that she has had for the last several weeks. Had taken Zpac but did not feel that it really helped. No recent fever. No sinus congestion, drainage or cough. Glands under chin feel very swollen. No GERD. She has also been having intermittent abdominal pain. Feels that if she eats too much she will have upper left abdominal pain. Has intermittent diarrhea. Daughter sees Dr. Haile and was recently diagnosed with ulcerative colitis. CURRENT MEDICATION LIST: VITAMIN B12 ORAL TABLET 100 MCG, 1 po qd LEVOTHYROXINE SODIUM ORAL TABLET 112 MCG, 1 Every Day PAROXETINE HCL ORAL TABLET 10 MG, 1/2 tab qd PHYSICAL EXAMINATION: CONSTITUTIONAL: GENERAL APPEARANCE: female, appears stated age. EARS, NOSE, MOUTH AND THROAT: EARS: Tympanic membranes shiny without retraction. Canals unremarkable. Hearing grossly normal. ORAL: ERYTHEMA NOTED ON THE POSTERIOR PHARYNX, normal tonsils. NECK/THYROID: Trachea midline. No thyroid enlargement, tenderness, or mass. No supraclavicular or cervical adenopathy. RESPIRATORY: Clear to auscultation and percussion. Normal respiratory effort. CARDIOVASCULAR: CARDIAC: Rhythm regular. LYMPHATICS: No lymphadenopathy noted in either posterior cervical chain, MULTIPLE TENDER, ENLARGED SUBMANDIBULAR LYMPH NODES NOTED BILATERALLY. GASTROINTESTINAL: ABDOMEN: Soft, non-tender, without masses. Bowel sounds active. LIVER/SPLEEN/KIDNEY: No hepatomegaly or tenderness is noted, no splenomegaly. ASSESSMENT/PLAN: 244.9-HYPOTHYROIDISM LAB ORDERS: Order number: [id number] Test Ordered: TSH 899 462-PHARYNGITIS MEDICATIONS: Pt states that amoxicillin causes diarrhea but she tolerates this well. CECLOR ORAL CAPSULE CONVENTIONAL 250 MG, 1 Three Times A Day, 30 Dispensed, status: NEW PRESCRIPTION, 05/26/2007. LAB ORDERS: Order number: [id number] Test Ordered: CBC (INCLUDES DIFF/PLT) 6399 SPECIALTY REFERRAL: GASTROENTEROLOGY Dr. Thelma Haile ph: [phone] fax: [phone].for further evaluation of intermittent abdominal pain. RETURN VISIT : Instructed to call if not improving. Electronically Signed by: Jina Banda MD on Saturday, May 26, 2007 documented in this encounter Plan of Treatment Upcoming Encounters Date Type Department Care Team (Late st Contact Info) Description 09/08/2024 12:00 PM CDT Office Visit [facility] Heart and Vascular At [address] [place] [address] Randal Cooley MD [address] [place] [address] [address] [place] [address] 10/27/2024 10:00 AM CDT Office Visit [facility] Heart and Vascular At [facility] [address] [facility] [address] [place] [address] Randal Cooley MD [address] [facility] [address] [place] [address] 10/28/2024 9:30 AM CDT Office Visit [facility] Urology [facility] [address] [facility] [address] [place] [address] [place] [address] [facility] [address] [place] [address] documented as of this encounter Visit Diagnoses Not on filedocumented in this encounter Additional Health Concerns Infection Onset Date Last Indicated Resolved Time R/O COVID-19 11/08/2019 11/08/2019 11/11/2019 12:3 1 AM CDT R/O COVID-19 02/01/2020 02/01/2020 02/03/2020 2:00 AM RESERVOIR ENGINEERING MANAGER documented as of this encounter Care Teams College Dean Relationship Specialty Start Date End Date Jina Banda MD PCP - General Internal Medicine 06/20/16 12/03/21 documented as of this encounter
--- OUTSIDE RECORDS SUMMARY | 2024-05-18 07:48 | XMS_ITS | Encounter Summary ---
Author Organization [facility] Address [address] [place] [address] Care Team Providers Care Manager Department Name Role Phone Jina Banda MD Primary Care Provider Unav ailable Encounter Details Date Type Department Care Team (Late st Contact Info) Description 06/03/2007 Orders Only [facility] Internal Medicine - [facility] [address] [address] [facility] [address] [place] [address] Jina Banda MD NO ADDRESS ON FILE Social History Tobacco Use Types Packs/Day Years Used Date Smoking Tobacco: Never Assessed Comments Unknown Sex and Gender Information Value Date Recorded Sex Assigned at Not on file Legal Sex Female 5:30 AM 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 ALTERNATIVE PHONE NUMBER: [phone] WHO CALLED: Patient called. CURRENT ALLERGY LIST: GUAIFENESIN HUMIBID DM [facility] NUMBER: [phone] OTHER INFORMATION: Patient is not currently . Patient is not currently nursing.not on bcp PROBLEMS: HEADACHE: Patient complains of headache. The symptoms began approximately 1 week ago. off/on-using IBUP SORE THROAT: Patient complains of sore throat. The sore throat began approximately 3 weeks ago. pt is on Ceclor x's 1 week-not much relief-very painful espcially at night-glands in neck still swollen SECTION 1: REQUESTED ACTION spirdm 06/03/07 at 02:32 pm: NEXT STEP: Patient is no better and wants to know the next step. PLEASE CALL: Patient requests a call from provider only. or MA DOCTOR`S RESPONSE: herlinda 06/03/07 at 03:38 pm MEDICATIONS: Call in to Pharmacy CECLOR ORAL CAPSULE CONVENTIONAL 250 MG, 1 Three Times A Day, 30 Dispensed, status: DISCONTINUED, 06/03/2007. LEVAQUIN ORAL TABLET 500 MG, 1 Every Day, 10 Dispensed, status: NEW PRESCRIPTION, 06/03/2007. No answer left a message on patient`s recorder. SECTION 2: FINAL ACTION: spirdm 06/03/07 at 03:45 pm Called pharmacy at 06/03/07 at 03:45 pm. ds Electronically Signed by: Kecia Diego on May documented in this encounter Plan of Treatment Upcoming Encounters Date Type Department Care Team (Late st Contact Info) Description 09/08/2024 12:00 PM CDT Office Visit [facility] Heart and Vascular At [address] [place] [address] Randal Cooley MD [address] [place] [address] 2014 [place] [address] 10/27/2024 10:00 AM CDT Office Visit [facility] Heart and Vascular At [address] [place] [address] Randal Cooley MD [address] [place] [address] [address] [place] [address] 10/28/2024 9:30 AM CDT Office Visit [facility] Urology [facility] [address] [facility] [address] [place] [address] [place] [address] [facility] [address] [place] [address] documented as of this encounter Visit Diagnoses Not on filedocumented in this encounter Additional Health Concerns Infection Onset Date Last Indicated Resolved Time R/O COVID-19 11/08/2019 11/08/2019 11/11/2019 12:3 1 AM CDT R/O COVID-19 02/01/2020 02/01/2020 02/03/2020 2:00 AM MECHANICAL SOUND TECHNICIAN documented as of this encounter Care Teams Manager Department Relationship Specialty Start Date End Date Jina Banda MD PCP - General Internal Medicine 06/20/16 12/03/21 documented as of this encounter
--- OUTSIDE RECORDS SUMMARY | 2024-05-18 07:48 | XMS_ITS | Encounter Summary ---
Author Organization [facility] Address [address] [place] [address] Care Team Providers Care Hydrogeologist Name Role Phone Jina Banda MD Primary Care Provider Unav ailable Encounter Details Date Type Department Care Team (Late st Contact Info) Description 02/16/2007 Outpatient Historical [facility], Authorized P NO ADDRESS ON FILE William Pimentel MD [address] [place] [phone] Lisa Palafox MD NO ADDRESS ON FILE Other and Unspecified Noninfectious Gastroenteritis and Colitis Social History Tobacco Use Types Packs/Day Years Used Date Smoking Tobacco: Never Assessed Comments Unknown Sex and Gender Information Value Date Recorded Sex Assigned at Not on file 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 Gender Identity Not on file Sexual Orientation Not on file documented as of this encounter Plan of Treatment Upcoming Encounters Date Type Department Care Team (Late Contact Info) Description 09/08/2024 12:00 PM CDT Office Visit [facility] Heart and Vascular At [address] [place] [phone] Randal Cooley MD [address] [place] [address] [address] [place], [place] [id number] 10/27/2024 10:00 AM CDT Office Visit [facility] Heart and Vascular At [address] [place] [address] Randal Cooley MD [address] [place] [address] [address] [place] [address] 10/28/2024 9:30 AM CDT Office Visit [facility] Urology [facility] [address] [place] [address] [place] [address] [facility] [address] [place] [address] documented as of this encounter Procedures Procedure Name Priority Date/Time Associated Diagnosis Comments CBC WITH DIFFERENTIAL Routine 02/18/2007 4:56 AM UNDERWATER PHOTOGRAPHER CBC WITH DIFFERENTIAL Routine 02/18/2007 4:56 AM UNDERWATER PHOTOGRAPHER COMPREHENSIVE METABOLIC PANEL Routine 02/18/2007 4:56 AM UNDERWATER PHOTOGRAPHER CBC WITH DIFFERENTIAL Routine 02/17/2007 4:48 AM UNDERWATER PHOTOGRAPHER CBC WITH DIFFERENTIAL Routine 02/17/2007 4:48 AM UNDERWATER PHOTOGRAPHER C-REACTIVE PROTEIN Routine 02/17/2007 4: 48 AM UNDERWATER PHOTOGRAPHER VITAMIN B12 LEVEL Routine 02/17/2007 4:4 8 AM UNDERWATER PHOTOGRAPHER BASIC METABOLIC PANEL Routine 02/17/2007 4:48 AM UNDERWATER PHOTOGRAPHER CBC WITH DIFFERENTIAL Routine 02/16/2007 10:35 PM UNDERWATER PHOTOGRAPHER CBC WITH DIFFERENTIAL Routine 02/16/2007 10:35 PM UNDERWATER PHOTOGRAPHER LIPASE Routine 02/16/2007 10:35 PM UNDERWATER PHOTOGRAPHER AMYLASE Routine 02/16/2007 10:35 PM UNDERWATER PHOTOGRAPHER COMPREHENSIVE METABOLIC PANEL Routine 02/16/2007 10:35 PM UNDERWATER PHOTOGRAPHER documented in this encounter Results * (ABNORMAL) CBC WITH DIFFERENTIAL (02/18/2007 4:56 AM UNDERWATER PHOTOGRAPHER) [facility] NEUTROPHILS 39(L) 45 - 70 % INTERFAC E SYSTEM LYMPHOCYTES 50(H) 16 - 45 % INTERFAC E SYSTEM MONOCYTES 8 3 - 13 % INTERFACE SYSTEM EOSINOPHILS 3 0 - 7 % INTERFAC E SYSTEM BASOPHILS 1 0 - 2 % INTERFACE SYSTEM NEUTROPHIL ABSOLUTE 1.24(L) 1.90 - 7.00 K/uL INTERFACE SYSTEM LYMPHOCYTE ABSOLUTE 1.59 0.70 - 4.50 K/uL INTERFACE SYSTEM MONOCYTE ABSOLUTE 0.25 0.10 - 1.30 K/uL INTERFACE SYSTEM EOSINOPHIL ABSOLUTE 0.08 0.00 - 0.70 K/uL INTERFACE SYSTEM BASOPHILS ABSOLUTE 0.02 0.00 - 0.20 K/uL INTERFACE SYSTEM 02/18/2007 4:56 AM UNDERWATER PHOTOGRAPHER Lisa Palafox MD HEMATOLOGY ORDERABLES Edited Performing Organization Address [facility] de Phone Number INTERFACE SYSTEM Refer to clinic/hospital department * (ABNORMAL) CBC WITH DIFFERENTIAL (02/18/2007 4:56 AM UNDERWATER PHOTOGRAPHER) [facility] WBC 3.2(L) 4.0 - 9.8 K/uL INTERFACE SYSTEM RBC 4.22 3.90 - 4.90 M/uL INTERFACE SYSTEM HEMOGLOBIN 11.9 11.8 - 14.8 g/dL INTERFACE SYSTEM HEMATOCRIT 36.1 35.5 - 44.0 % INTERFACE SYSTEM MCV 85.5 82.0 - 99.0 fL INTERFACE SYSTEM MCH 28.2 27.2 - 32.6 pg INTERFACE SYSTEM MCHC 33.0 31.5 - 35.5 % INTERFACE SYSTEM RDW 14.4 11.5 - 14.5 % INTERFACE SYSTEM RDW-STDEV 45.0 37.1 - 48.7 fL INTERFACE SYSTEM PLATELETS 259 140 - 350 K/uL INTERFACE SYSTEM MPV 12.1 9.3 - 12.4 fL INTERFACE SYSTEM 02/18/2007 4:56 AM UNDERWATER PHOTOGRAPHER us Lisa Palafox MD HEMATOLOGY ORDERABLES Edited Performing Organization Address [facility] de Phone Number INTERFACE SYSTEM Refer to clinic/hospital department * (ABNORMAL) COMPREHENSIVE METABOLIC PANEL (02/18/2007 4:56 AM UNDERWATER PHOTOGRAPHER) GLUCOSE 81 65 - 99 mg/dL INTERFACE SYSTEM CREATININE 0.58 0.51 - 0.95 mg/dL INTERFACE SYSTEM CALCIUM 8.1(L) 8.4 - 10.2 mg/dL INTERFACE SYSTEM ALKALINE PHOSPHATASE 48 35 - 104 U/L INTERFACE SYSTEM AST 33(H) 12 - 32 U/L INTERFACE SYSTEM Comment:Hemolyzed: Result ma y be falsely elevated. ALT 25 0 - 31 U/L INTERFACE SYSTEM TOTAL PROTEIN 7.2 6.3 - 8.6 g/dL INTERFACE SYSTEM ALBUMIN 3.9 3.4 - 4.8 g/dL INTERFACE SYSTEM BILIRUBIN TOTAL 0.3 0.2 - 1.0 mg/dL INTERFACE SYSTEM BUN 10 6 - 20 mg/dL INTERFACE SYSTEM SODIUM 135 135 - 145 mmol/L INTERFACE SYSTEM POTASSIUM 4.5 3.5 - 4.9 mmol/L INTERFACE SYSTEM Comment: Moderate hemolysis present. Can cause significant falsely elevated result. Clinical judgement necessary. Redraw if indicated. CHLORIDE 105 96 - 108 mmol/L INTERFACE SYSTEM CO2 23 22 - 30 mmol/L INTERFACE SYSTEM GFR, >60 >=60 mL/min/1. 7 sq meter INTERFACE SYSTEM GFR >60 >=60 mL/min/1. 7 sq meter INTERFACE SYSTEM Comment: Estimated GFR rate interpretative information for both Americans and non- Americans is available on the [facility] Intranet at: [email or web address] Select: Lab Policies and Procedures Select: Reference Ranges - GFR 02/18/2007 4:56 AM UNDERWATER PHOTOGRAPHER us Lisa Palafox MD CHEMISTRY ORDERABLES Edited INTERFACE SYSTEM Refer to clinic/hospital department * CBC WITH DIFFERENTIAL (02/17/2007 4:48 AM UNDERWATER PHOTOGRAPHER) Pathologist [facility] NEUTROPHILS 67 45 - 70 % INTERFAC E SYSTEM LYMPHOCYTES 27 16 - 45 % INTERFAC E SYSTEM MONOCYTES 6 3 - 13 % INTERFACE SYSTEM EOSINOPHILS 0 0 - 7 % INTERFAC E SYSTEM BASOPHILS 0 0 - 2 % INTERFACE SYSTEM NEUTROPHIL ABSOLUTE 1.90 1.90 - 7.00 K/uL INTERFACE SYSTEM LYMPHOCYTE ABSOLUTE 0.78 0.70 - 4.50 K/uL INTERFACE SYSTEM MONOCYTE ABSOLUTE 0.16 0.10 - 1.30 K/uL INTERFACE SYSTEM EOSINOPHIL ABSOLUTE 0.01 0.00 - 0.70 K/uL INTERFACE SYSTEM BASOPHILS ABSOLUTE 0.00 0.00 - 0.20 K/uL INTERFACE SYSTEM 02/17/2007 4:48 AM UNDERWATER PHOTOGRAPHER William Pimentel MD HEMATOLOGY ORDERABLES Edited Performing Organization Address [facility] de Phone Number INTERFACE SYSTEM Refer to clinic/hospital department * (ABNORMAL) CBC WITH DIFFERENTIAL (02/17/2007 4:48 AM UNDERWATER PHOTOGRAPHER) WBC 2.9(L) 4.0 - 9.8 K/uL INTERFACE SYSTEM RBC 4.03 3.90 - 4.90 M/uL INTERFACE SYSTEM HEMOGLOBIN 11.1(L) 11.8 - 14.8 g/dL INTERFACE SYSTEM HEMATOCRIT 34.3(L) 35.5 - 44.0 % INTERFACE SYSTEM MCV 85.1 82.0 - 99.0 fL INTERFACE SYSTEM MCH 27.5 27.2 - 32.6 pg INTERFACE SYSTEM MCHC 32.4 31.5 - 35.5 % INTERFACE SYSTEM RDW 14.4 11.5 - 14.5 % INTERFACE SYSTEM RDW-STDEV 44.8 37.1 - 48.7 fL INTERFACE SYSTEM PLATELETS 206 140 - 350 K/uL INTERFACE SYSTEM MPV 11.2 9.3 - 12.4 fL INTERFACE SYSTEM 02/17/2007 4:48 AM UNDERWATER PHOTOGRAPHER William Pimentel MD HEMATOLOGY ORDERABLES Edited Performing Organization Address [facility] de Phone Number INTERFACE SYSTEM Refer to clinic/hospital department * VITAMIN B12 (02/17/2007 4:48 AM UNDERWATER PHOTOGRAPHER) VITAMIN B12 211 211 - 946 pg/mL INTERFACE SYSTEM Comment: It has been reported that between 5 to 10% of patients with values between 200 and 400 pg/mL may experience neuropsychiatric and hematologic abnormalities due to occult B12 deficiency. Less than 1% of patients with values above 400 pg/mL will have symptoms. 02/17/2007 4:48 AM UNDERWATER PHOTOGRAPHER Result Arash Pimentel MD CHEMISTRY ORDERABLES Edited Performing Organization Address [facility] de Phone Number INTERFACE SYSTEM Refer to clinic/hospital department * C-REACTIVE PROTEIN (02/17/2007 4:48 AM UNDERWATER PHOTOGRAPHER) Pathologist [facility] CRP <0.2 0.0 - 0.8 mg/dL INTERFACE SYSTEM 02/17/2007 4:48 AM UNDERWATER PHOTOGRAPHER us William Pimentel MD CHEMISTRY ORDERABLES Edited Performing Organization Address [facility] de Phone Number INTERFACE SYSTEM Refer to clinic/hospital department * (ABNORMAL) BASIC METABOLIC PANEL (02/17/2007 4:48 AM UNDERWATER PHOTOGRAPHER) Pathologist [facility] GLUCOSE 111(H) 65 - 99 mg/dL INTERFACE SYSTEM CREATININE 0.63 0.51 - 0.95 mg/dL INTERFACE SYSTEM CALCIUM 8.2(L) 8.4 - 10.2 mg/dL INTERFACE SYSTEM BUN 11 6 - 20 mg/dL INTERFACE SYSTEM SODIUM 141 135 - 145 mmol/L INTERFACE SYSTEM POTASSIUM 3.5 3.5 - 4.9 mmol/L INTERFACE SYSTEM CHLORIDE 110(H) 96 - 108 mmol/L INTERFACE SYSTEM CO2 22 22 - 30 mmol/L INTERFACE SYSTEM GFR, >60 >=60 mL/min/1. 7 sq meter INTERFACE SYSTEM GFR >60 >=60 mL/min/1. 7 sq meter INTERFACE SYSTEM Comment: Estimated GFR rate interpretative information for both Americans and non- Americans is available on the [facility] Intranet at: [email or web address] Select: Lab Policies and Procedures Select: Reference Ranges - GFR 02/17/2007 4:48 AM UNDERWATER PHOTOGRAPHER Result Arash Pimentel MD CHEMISTRY ORDERABLES Edited Performing Organization Address [facility] de Phone Number INTERFACE SYSTEM Refer to clinic/hospital department * (ABNORMAL) CBC WITH DIFFERENTIAL (02/16/2007 10:35 PM UNDERWATER PHOTOGRAPHER) NEUTROPHILS 46 45 - 70 % INTERFAC E SYSTEM LYMPHOCYTES 45 16 - 45 % INTERFAC E SYSTEM MONOCYTES 7 3 - 13 % INTERFACE SYSTEM EOSINOPHILS 2 0 - 7 % INTERFAC E SYSTEM BASOPHILS 1 0 - 2 % INTERFACE SYSTEM NEUTROPHIL ABSOLUTE 1.61(L) 1.90 - 7.00 K/uL INTERFACE SYSTEM LYMPHOCYTE ABSOLUTE 1.57 0.70 - 4.50 K/uL INTERFACE SYSTEM MONOCYTE ABSOLUTE 0.23 0.10 - 1.30 K/uL INTERFACE SYSTEM EOSINOPHIL ABSOLUTE 0.06 0.00 - 0.70 K/uL INTERFACE SYSTEM BASOPHILS ABSOLUTE 0.02 0.00 - 0.20 K/uL INTERFACE SYSTEM 02/16/2007 10:3 5 PM UNDERWATER PHOTOGRAPHER Daniel Garcia MD HEMATOLOGY ORDERABLES Edited Performing Organization Address [facility] de Phone Number INTERFACE SYSTEM Refer to clinic/hospital department * (ABNORMAL) CBC WITH DIFFERENTIAL (02/16/2007 10:35 PM UNDERWATER PHOTOGRAPHER) WBC 3.5(L) 4.0 - 9.8 K/uL INTERFACE SYSTEM RBC 4.29 3.90 - 4.90 M/uL INTERFACE SYSTEM HEMOGLOBIN 12.0 11.8 - 14.8 g/dL INTERFACE SYSTEM HEMATOCRIT 36.6 35.5 - 44.0 % INTERFACE SYSTEM MCV 85.3 82.0 - 99.0 fL INTERFACE SYSTEM MCH 28.0 27.2 - 32.6 pg INTERFACE SYSTEM MCHC 32.8 31.5 - 35.5 % INTERFACE SYSTEM RDW 14.3 11.5 - 14.5 % INTERFACE SYSTEM RDW-STDEV 44.5 37.1 - 48.7 fL INTERFACE SYSTEM PLATELETS 218 140 - 350 K/uL INTERFACE SYSTEM MPV 10.7 9.3 - 12.4 fL INTERFACE SYSTEM 02/16/2007 10:3 5 PM UNDERWATER PHOTOGRAPHER Daniel Garcia MD HEMATOLOGY ORDERABLES Edited Performing Organization Address [facility] Co de Phone Number INTERFACE SYSTEM Refer to clinic/hospital department * LIPASE (02/16/2007 10:35 PM UNDERWATER PHOTOGRAPHER) Pathologist [facility] LIPASE 58 13 - 60 U/L INTERFAC E SYSTEM 02/16/2007 10:3 5 PM UNDERWATER PHOTOGRAPHER Daniel Garcia MD CHEMISTRY ORDERABLES Edited INTERFACE SYSTEM Refer to clinic/hospital department * AMYLASE (02/16/2007 10:35 PM UNDERWATER PHOTOGRAPHER) AMYLASE 86 28 - 100 U/L INTERFACE SYSTEM 02/16/2007 10:3 5 PM UNDERWATER PHOTOGRAPHER Daniel Garcia MD CHEMISTRY ORDERABLES Edited INTERFACE SYSTEM Refer to clinic/hospital department * (ABNORMAL) COMPREHENSIVE METABOLIC PANEL (02/16/2007 10:35 PM UNDERWATER PHOTOGRAPHER) GLUCOSE 98 65 - 99 mg/dL INTERFACE SYSTEM CREATININE 0.73 0.51 - 0.95 mg/dL INTERFACE SYSTEM CALCIUM 8.8 8.4 - 10.2 mg/dL INTERFACE SYSTEM ALKALINE PHOSPHATASE 60 35 - 104 U/L INTERFACE SYSTEM AST 31 12 - 32 U/L INTERFACE SYSTEM ALT 30 0 - 31 U/L INTERFACE SYSTEM TOTAL PROTEIN 8.1 6.3 - 8.6 g/dL INTERFACE SYSTEM ALBUMIN 4.5 3.4 - 4.8 g/dL INTERFACE SYSTEM BILIRUBIN TOTAL 0.2 0.2 - 1.0 mg/dL INTERFACE SYSTEM BUN 14 6 - 20 mg/dL INTERFACE SYSTEM SODIUM 138 135 - 145 mmol/L INTERFACE SYSTEM POTASSIUM 3.4(L) 3.5 - 4.9 mmol/L INTERFACE SYSTEM CHLORIDE 105 96 - 108 mmol/L INTERFACE SYSTEM CO2 22 22 - 30 mmol/L INTERFACE SYSTEM GFR, >60 >=60 mL/min/1. 7 sq meter INTERFACE SYSTEM GFR >60 >=60 mL/min/1. 7 sq meter INTERFACE SYSTEM Comment: Estimated GFR rate interpretative information for both Americans and non- Americans is available on the [facility] Intranet at: [email or web address] Select: Lab Policies and Procedures Select: Reference Ranges - GFR 02/16/2007 10:3 5 PM UNDERWATER PHOTOGRAPHER Daniel Garcia MD CHEMISTRY ORDERABLES Edited INTERFACE SYSTEM Refer to clinic/hospital department documented in this encounter Visit Diagnoses Diagnosis Other and unspecified noninfectious gastroenteritis and colitis(558.9) Other and unspecified noninfectious gastroenteritis and colitis documented in this encounter Additional Health Concerns Infection Onset Date Last Indicated Resolved Time R/O COVID-19 11/08/2019 11/08/2019 11/11/2019 12:3 1 AM CDT R/O COVID-19 02/01/2020 02/01/2020 02/03/2020 2:00 AM UNDERWATER PHOTOGRAPHER documented as of this encounter Care Teams Hydrogeologist Relationship Specialty Start Date End Date Jina Banda MD PCP - General Internal Medicine 06/20/16 12/03/21 documented as of this encounter
--- OUTSIDE RECORDS SUMMARY | 2024-05-18 07:48 | XMS_ITS | Encounter Summary ---
Author Organization [facility] Address [address] [place] [address] Care Team Providers Care Roof Assembler Name Role Phone Jina Banda MD Primary Care Provider Unav ailable Encounter Details Date Type Department Care Team (Late st Contact Info) Description 09/07/2006 Outpatient Historical [facility] Internal Medicine - [facility] [phone] [place] [address] [address] [place] [address] Jina Banda MD NO ADDRESS ON FILE Social History Tobacco Use Types Packs/Day Years Used Date Smoking Tobacco: Never Assessed Comments Unknown Sex and Gender Information Value Date Recorded Sex Assigned at Not on file Legal Sex Female 5:30 AM COMPLIANCE ADVISOR Gender Identity Not on file Sexual Orientation Not on file documented as of this encounter Last Filed Vital Signs Vital Sign Reading Time Taken Comments Blood Pressure 130/82 09/07/2006 11:16 AM CDT Pulse 72 09/07/2006 11:16 AM CDT Temperature 37.1 C (98.7 F) 09/07/2006 11:16 AM CDT Respiratory Rate - - Oxygen Saturation - - Inhaled Oxygen Concentration - - Weight 64 kg (141 lb) 09/07/2006 11:16 AM CDT Height - - Body Mass Index - - documented in this encounter Plan of Treatment Upcoming Encounters Date Type Department Care Team (Late st Contact Info) Description 09/08/2024 12:00 PM CDT Office Visit [facility] Heart and Vascular At [address] [place] [phone] Randal Cooley MD [address] [place] [address] [address] [place] [address] 10/27/2024 10:00 AM CDT Office Visit [facility] Heart and Vascular At [address] [place] [address] Randal Cooley MD [address] [place] [address] [address] [place] [address] 10/28/2024 9:30 AM CDT Office Visit [facility] Urology [facility] [address] [place] [phone] [place] [address] [place] [phone] documented as of this encounter Visit Diagnoses Not on filedocumented in this encounter Additional Health Concerns Infection Onset Date Last Indicated Resolved Time R/O COVID-19 11/08/2019 11/08/2019 11/11/2019 12:3 1 AM CDT R/O COVID-19 02/01/2020 02/01/2020 02/03/2020 2:00 AM COMPLIANCE ADVISOR documented as of this encounter Care Teams Roof Assembler Relationship Specialty Start Date End Date Jina Banda MD PCP - General Internal Medicine 06/20/16 12/03/21 documented as of this encounter
[2024-05-18 08:59] LABS: Basophils Percent Auto 0.5 % (0.2-1.2); Eosinophils Absolute Auto 0.1 K/mm3 (0-0.3); Eosinophils Percent Auto 0.8 % (0-4.4); Hematocrit 38.6 % (37.0-47.0); Hemoglobin 12.5 g/dL (12.0-15.0); Immature Granulocyte Absolute 0.03 K/mm3 (0.00-0.031); Immature Granulocyte Percent A 0.4 % (0-0.5); Lymphocytes Absolute Auto 1.04 K/mm3 (0.9-3.2); Lymphocytes Percent Auto 13.8 % (18.3-44.2); Mean Corpuscular HGB Conc 32.4 g/dl (32-36); Mean Corpuscular Hemoglobin 28.3 pg (26-34); Mean Corpuscular Volume 87.3 fl (80-100); Mean Platelet Volume 9.3 fl (7.4-10.4); Monocytes Absolute Auto 0.3 K/mm3 (0.1-0.6); Monocytes Percent Auto 4.1 % (2.6-8.5); Neutrophils Absolute Auto 6.1 K/mm3 (1.3-6.7); Neutrophils Percent Auto 80.4 % (45.5-73.1); Platelet Count Result 380 k/mm3 (150-375); Red Blood Count 4.42 M/mm3 (4.2-5.4); Red Cell Distribution Width 13.5 % (11.5-14.5); White Blood Count 7.6 K/mm3 (4.5-10.0)
[2024-05-18 09:05] LABS: Add Urine Microscopic? NO; Appearance Urine Clear (Clear); Bilirubin Urine Negative (Negative); Blood Urine Negative (Negative); Color Urine Yellow (Yellow); Glucose Urine UA Negative (Negative); Ketones Urine Trace mg/dL (Negative); Leukocyte Esterase Ur Negative LEU/UL (Negative); Nitrate Urine Negative (Negative); Protein Urine Negative (Negative); Specific Grav Ur 1.012 (1.001-1.035); Urobilinogen Urine 0.2 mg/dL (<2.0); pH Urine >=9.0 (5.0-9.0)
[2024-05-18 09:09] LABS: Alanine Aminotransferase 36 U/L (6-35); Albumin Level 4.6 g/dL (3.5-5.1); Alkaline Phosphatase 80 U/L (38-126); Anion Gap 12 mmol/L (4-12); Aspartate Amino Transferase 41 U/L (14-36); Bilirubin,Total 0.5 mg/dL (0.2-1.3); Blood Urea Nitrogen 20 mg/dL (7-17); Carbon Dioxide 24 mmol/L (22-30); Chloride 105 mmol/L (98-107); Estimated CRCL calculation 74 ml/min; Estimated Glomerular Filt Rate > 60; Glucose 124 mg/dL (65-110); Lipase 134 U/L (23-300); Potassium 4.4 mmol/L (3.4-5.0); Sodium 141 mmol/L (137-145)
--- NOTE | 2024-05-18 09:30 | ED_ITS ---
HPI - General Adult General Chief complaint: Nausea/Vomiting/Diarrhea Stated complaint: n/v Time Seen by Provider: 05/18/24 08:51 History of Present Illness HPI narrative: 63-year-old female presents to the emergency department for evaluation for of fatigue and possible dehydration. Patient was diagnosed with COVID last week and feels she is excessively thirsty and reported she felt lethargic. Patient denies any current chest pain or shortness of breath. Patient reports decreased p.o. intake with nausea but denies any recent vomiting. Patient does describe dizziness with a spinning sensation. Patient does have a prior history of C diff the last year was admitted for 7 days due to electrolyte abnormalities. Related Data Home Medications ?Medication ?Instructions ?Recorded ?Confirmed ?Last Taken ?Type aspirin 81 mg tablet 81 mg PO DAILY 05/08/20 04/19/24 Unknown History cholecalciferol (vitamin D3) 25 25 mcg PO DAILY 05/09/20 04/19/24 Unknown History mcg (1,000 unit) capsule (Vitamin D3) metoprolol tartrate 25 mg tablet 12.5 mg PO BID 06/11/20 04/19/24 Unknown History atorvastatin 40 mg tablet 40 mg PO DAILY 12/19/21 04/19/24 Unknown History multivitamin 1 tablet PO DAILY 02/27/23 04/19/24 Unknown History fluticasone 250 mcg-salmeterol 50 1 inh inhalation BID PRN allergic 03/02/24 04/19/24 Unknown History mcg/dose blistr powdr for symptoms inhalation (Advair Diskus) Allergies Allergy/AdvReac Type Severity Reaction Status Date / Time codeine Allergy Hives Verified 05/18/24 07:46 hydrocodone Allergy Hives Verified 05/18/24 07:46 pneumococcal vaccine (From Allergy Hives Verified 05/18/24 07:46 Pneumovax-23) Sulfa (Sulfonamide Allergy Hives Verified 05/18/24 07:46 Antibiotics) doxycycline AdvReac headaches Verified 05/18/24 11:20 morphine AdvReac nausea/vomi Verified 05/18/24 11:20 ting Review of Systems 2 Review of Systems: All systems reviewed & are unremarkable except as noted in HPI and below PMFSH Past Medical History Medical History Gross hematuria Colitis Hospital discharge follow-up Cervical radiculopathy Microscopic colitis Acute sinusitis Cough External hemorrhoids Localized swelling, mass and lump, unspecified Heart disease Anemia Pleuritic chest pain Anxiety Depression Hypothyroidism History of urinary tract infection Irritable bowel syndrome Dyslipidemia Hypertension Coronary artery disease Migraines Acute hypokalemia Pneumonia due to COVID-19 virus Hypokalemia Abnormal chest x-ray COVID-19 (Unknown) Surgical History Surgical History H/O excision of dermoid cyst 03/22/2014 09/06/2018 History of hernia repair 08/06/2016 History of heart artery stent Family History Family History Father Heart disease Mother Hypertension Depression Cerebrovascular accident Other Inflammatory bowel disease Social History Social History Social History: The patient is and lives in [place] with her . She is a lifelong nonsmoker. No alcohol or illicit substance abuse. Her Josh is her surrogate decision maker and she wishes to be a full code. Caffeine-daily Smoking status: Never smoker Alcohol intake: never Substance use: never Substance use type: does not use Do You Feel Safe in your Home?: Yes Lack of Transportation: No Lack of Food: Never True Current Housing: I Have Housing Concerned About Future Housing: No Difficulty Paying Gas/Electric Bills: No Difficulty Paying for Meds: No Currently Unemployed: No Education: High School Diploma/GED Difficulty w/ Childcare or Family Care: No Spiritual care concerns: No Exam 2 Narrative: APPEARANCE: Ill-appearing HEAD: normocephalic, atraumatic. EYES: PERRLA/EOMI, conjunctivae clear. NOSE: Normal no drainage EARS:TMS clear with good light reflex. THROAT: Pharynx clear, no exudate. NECK: Supple. No adenopathy, no masses. RESPIRATORY: Airway patent, respirations nonlabored. Clear to auscultation bilaterally, no rales, rhonchi, wheezing. CARDIOVASCULAR: Regular rate and rhythm without murmurs rubs or gallops. ABDOMINAL: Soft, nontender, nondistended, normal bowel sounds MUSCULOSKELETAL: Moves all extremities. Strength/ROM intact, No edema, No calf tenderness. NEURO: Alert. Cranial nerves II through XII intact. Grossly intact SKIN: Warm, dry. Normal Color Course Vital Signs Vital signs: Vital Signs Temperature 97.8 F 05/18/24 07:45 Pulse Rate 86 05/18/24 07:45 Respiratory Rate 16 05/18/24 07:45 Blood Pressure 151/109 H 05/18/24 07:45 Pulse Oximetry 100 05/18/24 07:45 Temperature 98.8 F 05/18/24 13:24 Pulse Rate 85 05/18/24 13:24 Respiratory Rate 16 05/18/24 13:24 Blood Pressure 151/92 H 05/18/24 13:24 Pulse Oximetry 95 05/18/24 13:24 Medical Decision Making MDM Narrative Medical decision making narrative: 63-year-old female present to the emergency department for evaluation for nausea vomiting and vertigo symptoms. Patient was treated with IV Zofran and did not have significant improvement with her nausea and vomiting she was treated with IV Benadryl and p.o. meclizine and IV Reglan and did have significant improvement. On re-evaluation patient states that her dizziness has resolved. Patient is currently afebrile with no leukocytosis and hemoglobin of 12.5. No significant electrolyte abnormalities. Urine was negative for infection, patient was positive for COVID was negative influenza A/B and RSV. Patient was able to ambulate at her baseline. Patient was provided meclizine for home. All questions concerns were addressed patient was well-appearing at time of discharge. Differential Diagnosis Differential Diagnosis: COVID, RSV, influenza, dehydration, TIA, CVA, vertigo, dehydration, orthostatic hypotension Vital Signs Vital Signs: Vital Signs Temperature 97.8 F 05/18/24 07:45 Pulse Rate 86 05/18/24 07:45 Respiratory Rate 16 05/18/24 07:45 Blood Pressure 151/109 H 05/18/24 07:45 Pulse Oximetry 100 05/18/24 07:45 Temperature 98.8 F 05/18/24 13:24 Pulse Rate 85 05/18/24 13:24 Respiratory Rate 16 05/18/24 13:24 Blood Pressure 151/92 H 05/18/24 13:24 Pulse Oximetry 95 05/18/24 13:24 Lab Data Lab results reviewed: Yes I reviewed the patient's lab results. 05/18/24 08:50 03/05/25 08:50 Labs: Lab Results 05/18/24 05/18/24 Range/Units 08:50 09:41 WBC 7.6 (4.5-10.0) K/mm3 RBC 4.42 (4.2-5.4) M/mm3 Hgb 12.5 (12.0-15.0) g/dL Hct 38.6 (37.0-47.0) % MCV 87.3 (80-100) fl MCH 28.3 (26-34) pg MCHC 32.4 (32-36) g/dl RDW 13.5 (11.5-14.5) % Plt Count 380 H (150-375) k/mm3 MPV 9.3 (7.4-10.4) fl Immature Gran % (Auto) 0.4 (0-0.5) % Neut % (Auto) 80.4 H (45.5-73.1) % Lymph % (Auto) 13.8 L (18.3-44.2) % Cataño % (Auto) 4.1 (2.6-8.5) % Eos % (Auto) 0.8 (0-4.4) % Baso % (Auto) 0.5 (0.2-1.2) % Lymph # (Auto) 1.04 (0.9-3.2) K/mm3 Cataño # (Auto) 0.3 (0.1-0.6) K/mm3 Eos # (Auto) 0.1 (0-0.3) K/mm3 Baso # (Auto) 0.0 (0.0-0.1) K/mm3 Abs Immat Gran (auto) 0.03 (0.00-0.031) K/mm3 Absolute Neuts (auto) 6.1 (1.3-6.7) K/mm3 Absolute Nucleated RBC 0.000 (0.0-0.012) K/mm3 Nucleated RBC % 0.0 (0.0-0.2) % Sodium 141 (137-145) mmol/L Potassium 4.4 (3.4-5.0) mmol/L Chloride 105 (98-107) mmol/L Carbon Dioxide 24 (22-30) mmol/L Anion Gap 12 (4-12) mmol/L BUN 20 H (7-17) mg/dL Creatinine 0.58 L (0.7-1.0) mg/dL Estim Creat Clear Calc 74 ml/min Estimated GFR > 60 (59 - ) Glucose 124 H (65-110) mg/dL Calcium 10.0 (8.4-10.2) mg/dL Total Bilirubin 0.5 (0.2-1.3) mg/dL AST 41 H (14-36) U/L ALT 36 H (6-35) U/L Alkaline Phosphatase 80 (38-126) U/L Total Protein 9.0 H (6.3-8.2) g/dL Albumin 4.6 (3.5-5.1) g/dL Lipase 134 (23-300) U/L Urine Color Yellow (Yellow) Urine Appearance Clear (Clear) Urine pH >=9.0 H (5.0-9.0) Ur Specific Mccune 1.012 (1.001-1.035) Urine Protein Negative (Negative) mg/dL Urine Glucose (UA) Negative (Negative) mg/dL Urine Ketones Trace H (Negative) mg/dL Ur Blood (Man) Negative (Negative) Urine Nitrate Negative (Negative) Urine Bilirubin Negative (Negative) Urine Urobilinogen 0.2 (<2.0) mg/dL Leukocyte Esterase Rfl Negative (Negative) CHARLENE/UL Influenza A (RT-PCR) Negative (Negative) Influenza B (RT-PCR) Negative (Negative) RSV (RT-PCR) Negative (Negative) SARS-CoV-2 RNA (RT-PCR) Positive A (Negative) Imaging Data Radiologist's impression: Impressions Head CT 05/18/24 12:05 IMPRESSION: 1. Normal brain. Discharge Plan Discharge Clinical Impression: Vertigo, Mild nausea and vomiting Patient Disposition: Home, Self-Care Condition: Stable Instructions: Antibiotic Form, Vertigo (DC), Acute Nausea and Vomiting (ED) Additional Instructions: Zofran as needed for nausea control. Meclizine as needed for vertigo control. Be careful because you are at risk for recurrent dizziness. Do not work at heights or put your self in a position where you could fall. Have close follow- up with your primary care physician. If you have any worsening symptoms then please call or return to the emergency department. Patient Language: Turkish Prescriptions: New meclizine 25 mg tablet 25 mg PO BID PRN (Reason: dizziness) 7 Days Qty: 14 0RF ondansetron 4 mg tablet,disintegrating 4 mg PO Q8H PRN (Reason: nausea and vomiting) Qty: 14 0RF No Action atorvastatin 40 mg tablet 40 mg PO DAILY alprazolam [Xanax] 0.25 mg tablet 0.25 mg PO DAILY PRN (Reason: anxiety) Qty: 30 0RF metoprolol tartrate 25 mg tablet 12.5 mg PO BID levothyroxine 88 mcg tablet See Rx Instructions .ROUTE .COMPLEX Qty: 90 3RF Dose Instruction: Take 1 tablet by mouth once daily Rx Instructions: Take 1 tablet by mouth once daily multivitamin Tablet 1 tablet PO DAILY fluticasone propion-salmeterol [Advair Diskus] 250-50 mcg/dose blister with device 1 inh inhalation BID PRN (Reason: allergic symptoms) potassium chloride 20 mEq tablet,ER particles/crystals 20 meq PO DAILY Qty: 7 0RF ondansetron 4 mg tablet,disintegrating 4 mg PO Q6H PRN (Reason: nausea and vomiting) Qty: 30 0RF aspirin 81 mg Tablet 81 mg PO DAILY cholecalciferol (vitamin D3) [Vitamin D3] 25 mcg (1,000 unit) Capsule 25 mcg PO DAILY albuterol sulfate 90 mcg/actuation HFA aerosol inhaler 2 puff inhalation Q4H PRN (Reason: shortness of breath or wheezing) Qty: 6.7 0RF lisinopril 40 mg tablet 40 mg PO DAILY Qty: 90 1RF amlodipine [Norvasc] 5 mg tablet 5 mg PO DAILY Qty: 90 1RF venlafaxine 75 mg capsule,extended release 24hr 75 mg PO DAILY Qty: 90 1RF Saccharomyces boulardii [Florastor] 250 mg capsule 250 mg PO BID Qty: 60 0RF Follow-up/Referrals: Mervin Jay DO [Primary Care Provider] -
[2024-05-18] MEDS: ONDANSETRON INJ 4 MG/2 ML VIAL IV PUSH (09:39)
[2024-05-18] MEDS: LACTATED RINGERS 1,000 ML 999 ML IV CONT (09:39)
--- OUTSIDE RECORDS SUMMARY | 2024-05-18 10:11 | XMS_ITS | Continuity of Care Document ---
Author Organization [facility] Address [address] [place] [address] Phone Care Team Providers Care Stone Polisher Machine Name Role Phone Rafat Garces MD Unavailable [...] Diagnoses Date Provider Providers Copied on Encounter [facility], [address] [address], [place], [place], [facility], tel:[phone] [facility] No Information 8 Dez Douglass. [address], [place], [place], [id number] , [place]. tel: [phone] OFFICE/OUTPA TIENT VISIT EST [facility], [address] [place] [address], [facility], [phone] [facility] Body mass index (BMI) 28.0-28.9, adultBiceps tendinitis of right upper extremity 8 Dez Douglass. [address], [place], [place], [id number] , [place]. tel: [phone] OFFICE/OUTPA TIENT VISIT EST [facility], [address] [place] [address], [id number], tel:[phone] [facility] Rotator cuff tear arthropathy of right shoulderOther specific arthropathies, not elsewhere classified, right shoulder 0- 8 Avelino Fowler. [address] [place] [address], [id number] . tel: [phone] OFFICE/OUTPA TIENT VISIT EST [facility], [address] [place] [address], [address], [place] tel:[phone] [facility] Impingement syndrome of right shoulder - 8 Avelino Fowler. [address] [place] [address], [id number] . tel: [phone] OFFICE/OUTPA TIENT VISIT EST [facility], [address] [place] [address], [facility], tel:[phone] [facility] Right shoulder tendonitis 0 8 Avelino Fowler. [address] [place] [address], [id number] . tel: [phone] OFFICE/OUTPA TIENT VISIT EST [facility], [address] [place] [address], [id number], [place] tel:[phone] [facility] Impingement syndrome of right shoulder Jun-0 8 Avelino Fowler. [address] [place] [address], [id number] . tel: [phone] OFFICE/OUTPA TIENT VISIT [facility], [address] [place] [address], [address], [place] tel:[phone] [facility] Bursitis of right shoulderBody mass index (BMI) 28.0-28.9, adultTrochanter ic bursitis of left hipOther enthesopathies, not elsewhere classified 7 Avelino Malcolm. [address] [place] [address], [id number] . tel: [phone] Referring Provider: Jina Joseph, [address] [address] [facility] [address], [place], [address] . tel:[phone] OFFICE/OUTPA TIENT VISIT [facility], [address] [place] [address], [address], [place] tel:[phone] [facility] GANGLION CYST (chief complaint) Ganglion cyst 4 Darrel Jeffries. [address] [place] [address], [id number] . tel: [phone] OFFICE/OUTPA TIENT VISIT EST [facility], [address] [place] [address], [id number], [place] tel:[phone] [facility] Medial epicondylitis of elbow 3 Avelino Fowler. [address] [place] [address], [id number] . 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 [address], [place], [place], [id number] . tel: [phone] Family History Family Member Type Diagnosis Age At Onset Father Problem (finding) coronary arterioscleros is Father Problem (finding) Payers Payer name Insurance type Covered democrat ID Authoriza tiabi(s) Blue Access Choice PPO [id number] Social History Type Description Quantity Date Captured [...] Information Instructions Date Instruction Additional Infor mation Giving encouragement to exercise Related to Body mass index (BMI) 28.0-28.9, adult Apply ice as tolerated. Related to Biceps tendinitis of right upper extremity Activity as tolerated Related to Biceps tendinitis of right upper extremity Apply ice as tolerated. Related to Right shoulder tendonitis Take medication as directed. Rel ated to Right shoulder tendonitis Weight monitoring Related to Bod y mass index (BMI) 28.0-28.9, adult Apply ice as tolerated. Related to Trochanteric bursitis of left hip Home exercise program Related to Trochanteric bursitis of left hip Activity as tolerated Related to Trochanteric bursitis of left hip Assessments Type Assessment Date No Information Patient Care Teams Name Effective Dates (start - stop) Status Members No Information
--- OUTSIDE RECORDS SUMMARY | 2024-05-18 10:11 | XMS_ITS | Encounter Summary ---
Author Organization [facility] Address [address] [place] [address] Care Team Providers Care Cell Technician Name Role Phone Jina Banda MD Primary Care Provider Unav ailable Encounter Details Date Type Department Care Team (Late st Contact Info) Description 08/15/2002 Outpatient Historical [facility] Internal Medicine - [facility] [id number] [place] [address] [address] [place] [address] Jina Banda MD NO ADDRESS ON FILE Social History Tobacco Use Types Packs/Day Years Used Date Smoking Tobacco: Never Assessed Comments Unknown Sex and Gender Information Value Date Recorded Sex Assigned at Not on file Legal Sex Female 5:30 AM GLASS CHECKER Gender Identity Not on file Sexual Orientation Not on file documented as of this encounter Plan of Treatment Upcoming Encounters Date Type Department Care Team (Late st Contact Info) Description 09/08/2024 12:00 PM CDT Office Visit [facility] Heart and Vascular At [address] [place] [address] Randal Cooley MD [address] [place] [address] [address] [place] [address] 10/27/2024 10:00 AM CDT Office Visit [facility] At [address] [place] [address] Randal Cooley MD [address] [place] [address] 2014 [place] [address] 10/28/2024 9:30 AM CDT Office Visit [facility] Urology [facility] [address] [address] [facility] [address] [place] [address] [place] [address] [facility] [address] [facility] [address] [facility] [address] [place] [address] documented as of this encounter Visit Diagnoses Not on filedocumented in this encounter Additional Health Concerns Infection Onset Date Last Indicated Resolved Time R/O COVID-19 11/08/2019 11/08/2019 11/11/2019 12:3 1 AM CDT R/O COVID-19 02/01/2020 02/01/2020 02/03/2020 2:00 AM GLASS CHECKER documented as of this encounter Care Teams Cell Technician Relationship Specialty Start Date End Date Jina Banda MD PCP - General Internal Medicine 06/20/16 12/03/21 documented as of this encounter
--- OUTSIDE RECORDS SUMMARY | 2024-05-18 10:11 | XMS_ITS | Encounter Summary ---
Author Organization [employer] Address [address] [place] [address] Care Team Providers Care Fast Food Manager Name Role Phone Jina Banda MD Primary Care Provider Unav ailable Encounter Details Date Type Department Care Team (Late st Contact Info) Description 02/26/2015 Nurse Triage Report [facility] Miladis Celestin, RN [address] [place] [address] Social History Tobacco Use Types Packs/Day Years Used Date Smoking Tobacco: Never Smokeless Tobacco: Never Alcohol Use Standard Drinks/Week Comments No 0 (1 standard drink = 0.6 oz pur e alcohol) Comments No Sex and Gender Information Value Date Recorded Sex Assigned at Not on file Legal Sex Female 5:30 AM PRODUCTION ASSEMBLY SUPERVISOR Gender Identity Not on file Sexual [...] Reviewed <<<<<<<< TRIAGE NOTE >>>>>>>> Triage Note: Electrifier Operator Eleni Celestin added this note on Feb 26 2015 9:36PM: will call office in the morning is patient is not better. <<<<<<<< TRIAGE/OUTCOME >>>>>>>> Guideline Title: Nausea or Vomiting Recommended Disposition: Provide Home/Self Care Original Inclination: Self Management Intended Action: Self Management Physician Contacted: No All other situations ? YES UCTION ASSEMBLY SUPERVISOR documented in this encounter Plan of Treatment Upcoming Encounters Date Type Department Care Team (Late st Contact Info) Description 09/08/2024 12:00 PM CDT Office Visit [facility] Heart and Vascular At [address] [place] [address] Randal Cooley MD [address] [place] [address] [address] [place] [address] 10/27/2024 10:00 AM CDT Office Visit [facility] Heart and Vascular At [address] [place] [address] Randal Cooley MD [address] [place] [address] [address] [place] [address] 10/28/2024 9:30 AM CDT Office Visit [facility] [address] [place] [address] [place] [address] [facility] [address] [place] [address] documented as of this encounter Visit Diagnoses Not on filedocumented in this encounter Additional Health Concerns Infection Onset Date Last Indicated Resolved Time R/O COVID-19 11/08/2019 11/08/2019 11/11/2019 12:3 1 AM CDT R/O COVID-19 02/01/2020 02/01/2020 02/03/2020 2:00 AM PRODUCTION ASSEMBLY SUPERVISOR documented as of this encounter Care Teams Fast Food Manager Relationship Specialty Start Date End Date Jina Banda MD PCP - General Internal Medicine 06/20/16 12/03/21 documented as of this encounter
--- OUTSIDE RECORDS SUMMARY | 2024-05-18 10:11 | XMS_ITS | Encounter Summary ---
Author Organization [facility] Address [address] [place] [address] Care Team Providers Care Estimating Manager Name Role Phone Jina Banda MD Primary Care Provider Unav ailable Encounter Details Date Type Department Care Team (Latest Contact Info) Description 11/07/1999 Outpatient Historical [facility] Chato Aguilera MD [address] [place] [address] Other screening mammogram (Primary Dx) Social History Tobacco Use Types Packs/Day Years Used Date Smoking Tobacco: Never Assessed Comments Unknown Sex and Gender Information Value Date Recorded Sex Assigned at Not on file Legal Sex Female 5:30 AM CORN GRINDER Gender Identity Not on file Sexual Orientation Not on file documented as of this encounter Plan of Treatment Upcoming Encounters Date Type Department Care Team (Late st Contact Info) Description 09/08/2024 12:00 PM CDT Office Visit [facility] Heart and Vascular At [address] [place] [address] Randal Cooley MD [address] [place] [address] 2014 [place] [address] 10/27/2024 10:00 AM CDT Office Visit [facility] Heart and Vascular At [address] [place] [address] Randal Cooley MD [address] [place] [address] 2014 [place] [address] 10/28/2024 9:30 AM CDT Office Visit [facility] Urology [facility] [address] [facility] [address] [place] [address] [place] [address] [facility] [address] [place] [address] documented as of this encounter Visit Diagnoses Diagnosis Other screening mammogram- Primary documented in this encounter Additional Health Concerns Infection Onset Date Last Indicated Resolved Time R/O COVID-19 11/08/2019 11/08/2019 11/11/2019 12:3 1 AM CDT R/O COVID-19 02/01/2020 02/01/2020 02/03/2020 2:00 AM CORN GRINDER documented as of this encounter Care Teams Estimating Manager Relationship Specialty Start Date End Date Jina Banda MD PCP - General Internal Medicine 06/20/16 12/03/21 documented as of this encounter
--- OUTSIDE RECORDS SUMMARY | 2024-05-18 10:11 | XMS_ITS | Encounter Summary ---
Author Organization [facility] Address [address] [place] [address] Care Team Providers Care Manager Transmission Name Role Phone Jina Banda MD Primary Care Provider Unav ailable Encounter Details Date Type Department Care Team (Latest Contact Info) Description 10/25/1998 Outpatient Historical [facility] Chato Aguilera MD [address] [place] [address] Other screening mammogram (Primary Dx) Social History Tobacco Use Types Packs/Day Years Used Date Smoking Tobacco: Never Assessed Comments Unknown Sex and Gender Information Value Date Recorded Sex Assigned at Not on file Legal Sex Female 5:30 AM APARTMENT COORDINATOR Gender Identity Not on file Sexual Orientation Not on file documented as of this encounter Plan of Treatment Upcoming Encounters Date Type Department Care Team (Late st Contact Info) Description 09/08/2024 12:00 PM CDT Office Visit [facility] Heart and Vascular At [address] [place] [address] Randal Cooley MD [address] [place] [address] [address] [place] [address] 10/27/2024 10:00 AM CDT Office Visit [facility] Heart and Vascular At [address] [place] [address] Randal Cooley MD [address] [place] [address] [address] [place] [address] 10/28/2024 9:30 AM CDT Office Visit [facility] Urology [facility] [address] [facility] [address] [place] [address] [place] [address] [facility] [address] [place] [address] documented as of this encounter Visit Diagnoses Diagnosis Other screening mammogram- Primary documented in this encounter Additional Health Concerns Infection Onset Date Last Indicated Resolved Time R/O COVID-19 11/08/2019 11/08/2019 11/11/2019 12:3 1 AM CDT R/O COVID-19 02/01/2020 02/01/2020 02/03/2020 2:00 AM APARTMENT COORDINATOR documented as of this encounter Care Teams Manager Transmission Relationship Specialty Start Date End Date Jina Banda MD PCP - General Internal Medicine 06/20/16 12/03/21 documented as of this encounter
--- OUTSIDE RECORDS SUMMARY | 2024-05-18 10:11 | XMS_ITS | Encounter Summary ---
Author Organization [facility] Address [address] [place] [address] Phone Care Team Providers Care Bias Machine Operator Name Role Phone Mervin Jay DO Primary Care Provider +1- [phone] Encounter Details Date Type Department Care Team (Late st Contact Info) Description 09/22/2018 Orders Only [facility] Scanning, Provider Social History Tobacco Use Types Packs/Day Years Used Date Smoking Tobacco: Never Assessed Comments Unknown Sex and Gender Information Value Date Recorded Sex Assigned at Not on file Legal Sex Female 6:45 PM SAP BUSINESS OBJECTS CONSULTANT Gender Identity Not on file Sexual [...] on filedocumented in this encounter Care Teams Bias Machine Operator Relationship Specialty Start Date End Date Mervin Jay DO PCP - General Internal Medicine 10/21/21 documented as of this encounter
--- OUTSIDE RECORDS SUMMARY | 2024-05-18 10:11 | XMS_ITS | Encounter Summary ---
Author Organization [facility] Address [address] [place] [address] Care Team Providers Care Retail Special Event Associate Name Role Phone Jina Banda MD Primary Care Provider Unav ailable Encounter Details Date Type Department Care Team (Late st Contact Info) Description 07/19/2002 Outpatient Historical [facility] Internal Medicine - [facility] [id number] [place] [address] [address] [place] [address] Jina Banda MD NO ADDRESS ON FILE Social History Tobacco Use Types Packs/Day Years Used Date Smoking Tobacco: Never Assessed Comments Unknown Sex and Gender Information Value Date Recorded Sex Assigned at Not on file Legal Sex Female 5:30 AM RN PARALEGAL Gender Identity Not on file Sexual Orientation Not on file documented as of this encounter Plan of Treatment Upcoming Encounters Date Type Department Care Team (Late st Contact Info) Description 09/08/2024 12:00 PM CDT Office Visit [facility] Heart and Vascular At [address] [place] [address] Randal Cooley MD [address] [place] [address] [address] [place] [address] 10/27/2024 10:00 AM CDT Office Visit [facility] Heart and Vascular At [address] [place] [address] Randal Cooley MD [address] [place] [address] 2014 [place] [address] 10/28/2024 9:30 AM CDT Office Visit [facility] Urology [facility] [address] [address] [facility] [address] [place] [address] [place] [address] [facility] [address] [facility] [address] [place] [address] documented as of this encounter Visit Diagnoses Not on filedocumented in this encounter Additional Health Concerns Infection Onset Date Last Indicated Resolved Time R/O COVID-19 11/08/2019 11/08/2019 11/11/2019 12:3 1 AM CDT R/O COVID-19 02/01/2020 02/01/2020 02/03/2020 2:00 AM RN PARALEGAL documented as of this encounter Care Teams Retail Special Event Associate Relationship Specialty Start Date End Date Jina Banda MD PCP - General Internal Medicine 06/20/16 12/03/21 documented as of this encounter
--- OUTSIDE RECORDS SUMMARY | 2024-05-18 10:11 | XMS_ITS | Clinical Summary ---
Author Organization [facility] Address [address] [facility] [place] [address] Care Team Providers Care Behavioral Health Care Coordinator Name Role Phone Mervin Jay DO Primary Care Provider [phone]- [phone] Source Comments [facility],non-owned Affiliates and Associated Physician Practices is amultiple site organization consisting of ambulatory clinics and hospital sitesin [place], [place], [place] and [place]. This disclosure is being madepursuant to the Care Everywhere program and may not contain all information available regarding this patient. Last updated 17.[facility] Allergies Active Allergy Reactions Criticality Noted Date [...] MCG/ACT nasal sprayIndications:Acu te pharyngitis, unspecified etiology Blain 2 sprays into each nostril once daily [...] age to complete this topic Care Teams Behavioral Health Care Coordinator Relationship Specialty Start Date End Date Mervin Jay DO PCP - General 09/26/20
--- OUTSIDE RECORDS SUMMARY | 2024-05-18 10:11 | XMS_ITS | Encounter Summary ---
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 Gender Identity Not on file Sexual Orientation Not on file documented as of this encounter Plan of Treatment Upcoming Encounters Date Type Department Care Team (Late st Contact Info) Description 09/08/2024 12:00 PM CDT Office Visit [facility] Heart and Vascular At [address] [place] [address] Randal Cooley MD [address] [place] [address] 2014 [place] [address] 10/27/2024 10:00 AM CDT Office Visit [facility] Heart and Vascular At [address] [place] [address] Randal Cooley MD [address] [place] [address] [address] [place] [address] 10/28/2024 9:30 AM CDT Office Visit [facility] Urology [facility] [address] [facility] [address] [place] [address] [place] [address] [facility] [address] [place] [address] documented as of this encounter Visit Diagnoses Not on filedocumented in this encounter Additional Health Concerns Infection Onset Date Last Indicated Resolved Time R/O COVID-19 11/08/2019 11/08/2019 11/11/2019 12:3 1 AM CDT R/O COVID-19 02/01/2020 02/01/2020 02/03/2020 2:00 AM TUBER MACHINE OPERATOR HELPER documented as of this encounter Care Teams Quartz Miner Relationship Specialty Start Date End Date Jina Banda MD PCP - General Internal Medicine 06/20/16 12/03/21 documented as of this encounter
--- OUTSIDE RECORDS SUMMARY | 2024-05-18 10:11 | XMS_ITS | Encounter Summary ---
Author Organization [facility] Address [address] [facility] [place] [address] Care Team Providers Care Farm Boss Name Role Phone Mervin Jay DO Primary Care Provider [phone]- [phone] Encounter Details Date Type Department Care Team (Late st Contact Info) Description 09/26/2020 Lab Requisition [facility] [address] [facility] [place] [address] Jakob Marr MD [address] [place] [address] Social History Tobacco Use Types Packs/Day Years [...] AM CDT) Case Report Dermatopathology Report Case: [id number] Authorizing Provider: Jakob Marr MD Collected: 09/25/2020 12:00 AM Ordering Location: [facility] Received: 09/26/2020 01:47 PM Pathologist: [...] characteristic determined by the Dermatopathology Laboratory at [facility], directed by Dr. Bruce Varghese. These tests need not be, and therefore are not, approved by the [place] Food and Drug Administration. The tests are used for clinical purposes. Billing Codes Specimen Charges Stain Charges 47459 1 1 1:17 PM CDT DERMATOPATHOLOGY LABORATORY Embedded Images 1:17 PM CDT DERMATOPATHOLOGY LABORATORY Pathology/Cytolog y TISSUE SPECIMEN FROM SKIN / Unknown 09/25/2020 09/26/2020 1:47 PM CDT Jakob Marr MD LAB - PATHOLOGY/CYTO LOGY ORDERABLES DERMATOPATHOLOGY LABORATORY [facility] - Department of Dermatology [facility] [address] [facility], 3rd Floor [address] [phone] documented in this encounter Visit Diagnoses Not on filedocumented in this encounter Care Teams Farm Boss Relationship Specialty Start Date End Date Mervin Jay DO PCP - General 09/26/20 documented as of this encounter
--- OUTSIDE RECORDS SUMMARY | 2024-05-18 10:11 | XMS_ITS | Encounter Summary ---
Author Organization [facility] Address [address] [place] [address] Care Team Providers Care Household Appliance Mechanic Name Role Phone Jina Banda MD Primary Care Provider Unav ailable Encounter Details Date Type Department Care Team (Late st Contact Info) Description 02/28/2006 Outpatient Historical [facility] Internal Medicine - [facility] [address] [address] [facility] [address] [place] [address] Jina Banda MD NO ADDRESS ON FILE Unspecified Hypothyroidism (Primary Dx) Social History Tobacco Use Types Packs/Day Years Used Date Smoking Tobacco: Never Assessed Comments Unknown Sex and Gender Information Value Date Recorded Sex Assigned at Not on file Legal Sex Female 5:30 AM SENIOR MERCHANDISER Gender Identity Not on file Sexual Orientation Not on file documented as of this encounter Plan of Treatment Upcoming Encounters Date Type Department Care Team (Late st Contact Info) Description 09/08/2024 12:00 PM CDT Office Visit [facility] Heart and Vascular At [address] [place] [address] Randal Cooley MD [address] [place] [address] [address] [place] [address] 10/27/2024 10:00 AM CDT Office Visit [facility] Heart and Vascular At [address] [place] [address] Randal Cooley MD [address] [place] [address] [address] [place] [address] 10/28/2024 9:30 AM CDT Office Visit [facility] Urology [facility] [address] [facility] [address] [place] [address] [place] [address] [facility] [address] [place] [address] documented as of this encounter Procedures Procedure Name Priority Date/Time Associated Diagnosis Comments CBC WITH DIFFERENTIAL Routine 02/28/2006 9:53 AM SENIOR MERCHANDISER CBC WITH DIFFERENTIAL Routine 02/28/2006 9:53 AM SENIOR MERCHANDISER TSH Routine 02/28/2006 9:53 AM SENIOR MERCHANDISER LIPID PANEL Routine 02/28/2006 9:53 AM SENIOR MERCHANDISER documented in this encounter Results * CBC WITH DIFFERENTIAL (02/28/2006 9:53 AM SENIOR MERCHANDISER) NEUTROPHILS 57 45 - 70 % INTERFAC [...] 0.20 K/uL INTERFACE SYSTEM 02/28/2006 9:53 AM SENIOR MERCHANDISER Jina Banda MD HEMATOLOGY ORDERABLES Final Result INTERFACE SYSTEM Refer to clinic/hospital department * (ABNORMAL) CBC WITH DIFFERENTIAL (02/28/2006 9:53 AM SENIOR MERCHANDISER) WBC 4.6 4.0 - 9.8 K/uL INTERFACE [...] 12.4 fL INTERFACE SYSTEM 02/28/2006 9:53 AM SENIOR MERCHANDISER us Jina Banda MD HEMATOLOGY ORDERABLES Final Result Performing Organization Address [facility] Co de Phone Number INTERFACE SYSTEM Refer to clinic/hospital department * TSH (02/28/2006 9:53 AM SENIOR MERCHANDISER) TSH 2.24 0.27 - 4.20 uU/mL INTERFACE SYSTEM 02/28/2006 9:53 AM SENIOR MERCHANDISER us Jina Banda MD CHEMISTRY ORDERABLES Final Result Performing Organization Address [facility] Co de Phone Number INTERFACE SYSTEM Refer to clinic/hospital department * (ABNORMAL) LIPID PANEL (02/28/2006 9:53 AM SENIOR MERCHANDISER) CHOLESTEROL 179 100 - 199 mg/dL INTERFACE SYSTEM TRIGLYCERIDE 77 10 - 149 mg/dL INTERFACE SYSTEM HDL 79(H) 40 - 59 mg/dL INTERFACE SYSTEM CHOL/HDL RATIO 2.3 2.0 - 5.0 INTER FACE SYSTEM LDL CALCULATED 85 <=99 mg/dL INTERFACE SYSTEM LIPID PANEL COMMENT See Below INTERFACE SYSTEM Comment: The adult ATP and pediatric NCEP classifications for lipids are available on the [facility] Intranet at: [email or web address] [email or web address]t/[email or web address].nsf Select: Lab Policies and Procedures Select: Reference Ranges - Lipids 02/28/2006 9:53 AM SENIOR MERCHANDISER Jina Banda MD CHEMISTRY ORDERABLES Final Result INTERFACE SYSTEM Refer to clinic/hospital department documented in this encounter Visit Diagnoses Diagnosis Unspecified hypothyroidism- Primary documented in this encounter Additional Health Concerns Infection Onset Date Last Indicated Resolved Time R/O COVID-19 11/08/2019 11/08/2019 11/11/2019 12:3 1 AM CDT R/O COVID-19 02/01/2020 02/01/2020 02/03/2020 2:00 AM SENIOR MERCHANDISER documented as of this encounter Care Teams Household Appliance Mechanic Relationship Specialty Start Date End Date Jina Banda MD PCP - General Internal Medicine 06/20/16 12/03/21 documented as of this encounter
--- OUTSIDE RECORDS SUMMARY | 2024-05-18 10:11 | XMS_ITS | Encounter Summary ---
Author Organization [facility] Address [address] [place] [address] Care Team Providers Care Cigarette Packer Name Role Phone Jina Banda MD Primary Care Provider Unav ailable Encounter Details Date Type Department Care Team (Late st Contact Info) Description 02/25/2006 Outpatient Historical [facility] Internal Medicine - [facility] [id number] [place] [address] [address] [place] [address] Jina Banda MD NO ADDRESS ON FILE Social History Tobacco Use Types Packs/Day Years Used Date Smoking Tobacco: Never Assessed Comments Unknown Sex and Gender Information Value Date Recorded Sex Assigned at Not on file Legal Sex Female 5:30 AM 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 PROFESSOR Gender Identity Not on file Sexual Orientation Not on file documented as of this encounter Plan of Treatment Upcoming Encounters Date Type Department Care Team (Late st Contact Info) Description 09/08/2024 12:00 PM CDT Office Visit [facility] Heart and Vascular At [address] [place] [address] Randal Cooley MD [address] [place] [address] [address] [place] [address] 10/27/2024 10:00 AM CDT Office Visit [facility] Heart and Vascular At [address] [place] [address] Randal Cooley MD [address] [place] [address] [address] [place] [address] 10/28/2024 9:30 AM CDT Office Visit [facility] Urology [facility] [address] [facility] [address] [address] [facility] [address] [place] [address] [place] [address] [facility] [address] [facility] [address] [place] [address] documented as of this encounter Visit Diagnoses Not on filedocumented in this encounter Additional Health Concerns Infection Onset Date Last Indicated Resolved Time R/O COVID-19 11/08/2019 11/08/2019 11/11/2019 12:3 1 AM CDT R/O COVID-19 02/01/2020 02/01/2020 02/03/2020 2:00 AM DIETETICS PROFESSOR documented as of this encounter Care Teams Cigarette Packer Relationship Specialty Start Date End Date Jina Banda MD PCP - General Internal Medicine 06/20/16 12/03/21 documented as of this encounter
--- OUTSIDE RECORDS SUMMARY | 2024-05-18 10:11 | XMS_ITS | Encounter Summary ---
Author Organization [facility] Address [address] [place] [address] Care Team Providers Care Packer Inspector Name Role Phone Jina Banda MD Primary Care Provider Unav ailable Encounter Details Date Type Department Care Team (Late st Contact Info) Description 12/20/2001 Outpatient Historical [facility] Internal Medicine - [facility] [id number] [place] [address] [address] [place] [address] Jina Banda MD NO ADDRESS ON FILE Social History Tobacco Use Types Packs/Day Years Used Date Smoking Tobacco: Never Assessed Comments Unknown Sex and Gender Information Value Date Recorded Sex Assigned at Not on file Legal Sex Female 5:30 AM DATA REVIEWER Gender Identity Not on file Sexual Orientation Not on file documented as of this encounter Plan of Treatment Upcoming Encounters Date Type Department Care Team (Late st Contact Info) Description 09/08/2024 12:00 PM CDT Office Visit [facility] Heart and Vascular At [address] [place] [address] Randal Cooley MD [address] [place] [address] [address] [place] [address] 10/27/2024 10:00 AM CDT Office Visit [facility] Heart and Vascular At [address] [place] [address] Randal Cooley MD [address] [place] [address] [address] [place] [address] 10/28/2024 9:30 AM CDT Office Visit [facility] Urology [facility] [address] [address] [facility] [address] [place] [address] [place] [address] [facility] [address] [facility] [address] [place] [address] documented as of this encounter Visit Diagnoses Not on filedocumented in this encounter Additional Health Concerns Infection Onset Date Last Indicated Resolved Time R/O COVID-19 11/08/2019 11/08/2019 11/11/2019 12:3 1 AM CDT R/O COVID-19 02/01/2020 02/01/2020 02/03/2020 2:00 AM DATA REVIEWER documented as of this encounter Care Teams Packer Inspector Relationship Specialty Start Date End Date Jina Banda MD PCP - General Internal Medicine 06/20/16 12/03/21 documented as of this encounter
--- OUTSIDE RECORDS SUMMARY | 2024-05-18 10:11 | XMS_ITS | Referral Summary ---
Author Organization [facility] Address [address] [place] [address] Care Team Providers Care Warehouse Packer Name Role Phone Mervin Jay DO Primary Care Provider [phone] Encounters Date Type Department Care Team Description 03/28/2024 10:15 AM SEXUAL ASSAULT NURSE Lab [facility] [address] [place] [address] Recurrent pneumonia 03/28/2024 9:10 AM SEXUAL ASSAULT NURSE Office Visit [facility] Allergy and Immunology [address] [place] [address] Andrzej Wyman MD Recurrent pneumonia (Primary Dx); IgA deficiency (HCC) 03/07/2024 3:00 PM SEXUAL ASSAULT NURSE Office Visit [facility] Gastroenterology [address] 2[address] [place] [address] Katelyn Touer NP Lymphocytic colitis (Primary Dx) 02/18/2024 10:30 AM SEXUAL ASSAULT NURSE Ancillary Procedure [facility] Cardiology [address] [place] [address] Atrial fibrillation, unspecified type (HCC) from Last [...] (01/06/2022): Added automatically from request for surgery [id number] Social History Tobacco Use Types Packs/Day Years [...] on file Legal Sex Female 6:45 PM SEXUAL ASSAULT NURSE Gender Identity Not on file Sexual Orientation Not on file Last Filed Vital Signs Vital Sign Reading Time Taken Comments Blood Pressure 124/75 03/28/2024 9:10 AM SEXUAL ASSAULT NURSE Pulse 66 03/28/2024 9:10 AM SEXUAL ASSAULT NURSE Temperature 36.5 C (97.7 F) 03/28/2024 9:10 AM SEXUAL ASSAULT NURSE Respiratory Rate 15 01/23/2022 11:05 AM SEXUAL ASSAULT NURSE Oxygen Saturation 96% 03/07/2024 2:55 PM SEXUAL ASSAULT NURSE Inhaled Oxygen Concentration - - Weight 68.6 kg (151 lb 3.2 oz) 03/28/2024 9:10 A M SEXUAL ASSAULT NURSE Height 154.9 cm (5' 1 ) 03/28/2024 9:10 AM SEXUAL ASSAULT NURSE Body Mass Index 28.57 03/28/2024 9:10 AM SEXUAL ASSAULT NURSE Plan of Treatment Not on file Procedures Procedure Name Priority Date/Time Associated Diagnosis Comments MCT - MOBILE CARDIAC TELEMETRY EVENT MONITOR Routine 03/28/2024 12:29 PM SEXUAL ASSAULT NURSE Atrial fibrillation, unspecified type (HCC) EGFR Routine 03/28/2024 10:24 AM SEXUAL ASSAULT NURSE Recurrent pneumonia DIFFERENTIAL AUTO Routine 03/28/2024 10: 24 AM SEXUAL ASSAULT NURSE Recurrent pneumonia COMPREHENSIVE METABOLIC PANEL Routine 03/28/2024 10:24 AM SEXUAL ASSAULT NURSE Recurrent pneumonia CBC WITH AUTO DIFFERENTIAL Routine 03/28/2024 10:24 AM SEXUAL ASSAULT NURSE Recurrent pneumonia IGA Routine 03/28/2024 10:24 AM SEXUAL ASSAULT NURSE Recurrent pneumonia IGG Routine 03/28/2024 10:24 AM SEXUAL ASSAULT NURSE Recurrent pneumonia IGM Routine 03/28/2024 10:24 AM SEXUAL ASSAULT NURSE Recurrent pneumonia IMMUNE COMPETENCE Routine 03/28/2024 10: 24 AM SEXUAL ASSAULT NURSE Recurrent pneumonia STREP PNEUMONIAE ANTIBODY SEROTYPES Routine 03/28/2024 10:24 AM SEXUAL ASSAULT NURSE Recurrent pneumonia TETANUS ANTIBODY, IGG Routine 03/28/2024 10:24 AM SEXUAL ASSAULT NURSE Recurrent pneumonia PROTEIN ELECTROPHORESIS, WITH REFLEX, SERUM Routine 03/28/2024 10:24 AM SEXUAL ASSAULT NURSE Recurrent pneumonia IMMUNOFIXATION, URINE Routine 03/28/2024 10:24 AM SEXUAL ASSAULT NURSE Recurrent pneumonia COLONOSCOPY 01/23/2022 10:27 AM SEXUAL ASSAULT NURSE from Last 3 Months or Most Recently Relevant to Health Maintenance Results * MCT Mobile Cardiac Telemetry Event Monitor (03/28/2024 12:29 PM SEXUAL ASSAULT NURSE) Anatomical Region Laterality Modality Electrocardiogra phy Narrative 03/28/2024 12:29 PM SEXUAL ASSAULT NURSE AMBULATORY CATERING DIRECTOR REPORT Patient Name: Ely Wei Date of : 1960 Requesting Physician: KYA Date of interpretation: 03/28/24 Type of monitor : 30 day event monitor Date of the study/Enrollment period: Initiated on 02/18/2024 Indication: Atrial fibrillation Quality of the study: Adequate Interpretation: The basic cardiac rhythm is sinus with normal TN, QRS and QT intervals. The heart rate [...] that were labeled as AFib by the sfdc technical architect. These are more consistent with SVT in [...] was used to complete this document, therefore, teachers' assistant variances may occur. Prateek Perez MD [facility] 03/28/24 Procedure Note Prateek Perez MD - 03/28/2024 AMBULATORY CATERING DIRECTOR REPORT Patient Name: Ely Wei Date of : 1960 Requesting Physician: KYA Date of interpretation: 03/28/24 Type of monitor : 30 day event monitor Date of the study/Enrollment period: Initiated on 02/18/2024 Indication: Atrial fibrillation Quality of the study: Adequate Interpretation: The basic cardiac rhythm is sinus with normal TN, QRS andQT intervals. The heart rate varies [...] that were labeled as AFib by the sfdc technical architect.These are more consistent with SVT in my [...] occurring on 03/04/2024 at 5:25 a.m. this [employer] Voice recognition software was used to complete this document, therefore,teachers' assistant variances may occur. Prateek Perez MD [facility] 03/28/24 us Jose Montez MD CV CARDIAC SERVICES PROCEDURES F inal Result * eGFR (03/28/2024 10:24 AM SEXUAL ASSAULT NURSE) eGFR >90 >=60 mL/min/1. 73 m2 Comment: [...] reviewed 2021. Blood 03/28/2024 10:2 4 AM SEXUAL ASSAULT NURSE 03/28/2024 11:51 AM SEXUAL ASSAULT NURSE Andrzej Wyman MD LAB BLOOD ORDERABLES Fi nal Result [facility] [place] [address] * Differential, auto (03/28/2024 10:24 AM SEXUAL ASSAULT NURSE) Neutrophil abs 4.2 1.5 - 6.5 K/cumm Imm gran abs 0.0 0.0 - 0.1 K/cumm [facility] Lymphocyte abs 1.9 0.8 - 3.3 K/cumm [facility] Monocyte abs 0.5 0.2 - 0.8 K/cumm [facility] Eosinophil abs 0.1 0.0 - 0.5 K/cumm [facility] Basophil abs 0.1 0.0 - 0.1 K/cumm [facility] Neutrophil pct 61.7 % [facility] Comment: Interpretive Data Percent cell count reference ranges are not reported, since discordance with absolute values may lead to misinterpretation of CBC data. Current Interpretive Data was last revised on 2017. Imm gran pct 0.4 % [facility] Comment: Interpretive Data Percent cell count reference ranges are not reported, since discordance with absolute values may lead to misinterpretation of CBC data. Current Interpretive Data was last revised on 2017. Lymphocyte pct 27.7 % [facility] Comment: Interpretive Data Percent cell count reference ranges are not reported, since discordance with absolute values may lead to misinterpretation of CBC data. Current Interpretive Data was last revised on 2017. Monocyte pct 7.6 % [facility] Comment: Interpretive Data Percent cell count reference ranges are not reported, since discordance with absolute values may lead to misinterpretation of CBC data. Current Interpretive Data was last revised on 2017. Eosinophil pct 1.7 % [facility] Comment: Interpretive Data Percent cell count reference ranges are not reported, since discordance with absolute values may lead to misinterpretation of CBC data. Current Interpretive Data was last revised on 2017. Basophil pct 0.9 % [facility] Comment: Interpretive Data Percent cell count reference ranges are not reported, since discordance with absolute values may lead to misinterpretation of CBC data. Current Interpretive Data was last revised on 2017. Blood 03/28/2024 10:2 4 AM SEXUAL ASSAULT NURSE 03/28/2024 11:49 AM SEXUAL ASSAULT NURSE Andrzej Wyman MD LAB BLOOD ORDERABLES Fi nal Result Performing Organization Address City/[facility]/ZIP Co de Phone Number [facility] [place] [address] * Immune competence (03/28/2024 10:24 AM SEXUAL ASSAULT NURSE) CD3 pct 75 60 - 88 % CD3 Absolute 1,424 661 - 1,963 cells/mcL [facility] CD4 pct 45 31 - 64 % [facility] CD4 Absolute 858 365 - 1,294 cells/mcL [facility] CD8 pct 30 12 - 40 % [facility] CD8 Absolute 568 187 - 781 cells/mcL [facility] CD19 pct 17 6 - 25 % [facility] CD19 Absolute 312 86 - 488 cells/mcL [facility] [id number] pct 7 5 - 25 % [facility] [id number] Absolute 136 76 - 467 cells/mcL [facility] CD4/CD8 ratio 1.5 0.9 - 4.4 [facility] Blood 03/28/2024 10:2 4 AM SEXUAL ASSAULT NURSE 03/28/2024 11:49 AM SEXUAL ASSAULT NURSE Andrzej Wyman MD LAB BLOOD ORDERABLES Fi nal Result Performing Organization Address City/[facility]/ZIP Co de Phone Number [facility] [place] [address] * Immunofixation, urine (03/28/2024 10:24 AM SEXUAL ASSAULT NURSE) [facility] Immunofixation, Ur Please see comment Comment: NO PARAPROTEIN DETECTED Reviewed and signed by Renny Anaya MD, PhD 03/30/2024 Urine 03/28/2024 10:2 4 AM SEXUAL ASSAULT NURSE 03/28/2024 12:06 PM SEXUAL ASSAULT NURSE Andrzej Wyman MD LAB URINE ORDERABLES Fi nal Result Performing Organization Address City/[facility]/ZIP Co de Phone Number [facility] [place] [address] * CBC with auto differential (03/28/2024 10:24 AM SEXUAL ASSAULT NURSE) [facility] WBC 6.9 3.8 - 9.9 K/cumm Hgb 12.5 11.9 - 15.5 g/dL [facility] Hct 38.7 35.6 - 45.5 % [facility] Plt 361 150 - 400 K/cumm [facility] MPV 10.2 9.1 - 12.3 fL [facility] RBC 4.41 3.90 - 5.20 M/cumm [facility] MCV 87.8 81.3 - 96.4 fL [facility] MCH 28.3 27.1 - 33.3 pg [facility] MCHC 32.3 32.3 - 35.7 g/dL [facility] RDW CV 14.1 11.1 - 14.9 % [facility] RDW SD 45.6 35.7 - 48.1 fL [facility] NRBC abs 0.00 0.00 - 0.01 K/cumm [facility] Blood 03/28/2024 10:2 4 AM SEXUAL ASSAULT NURSE 03/28/2024 11:49 AM SEXUAL ASSAULT NURSE Andrzej Wyman MD LAB BLOOD ORDERABLES Fi nal Result Performing Organization Address City/[facility]/ZIP Co de Phone Number [facility] [place] [address] * Tetanus antibody, IgG (03/28/2024 10:24 AM SEXUAL ASSAULT NURSE) Tetanus IgG Ab Positive [facility] Comment: REFERENCE VALUE Vaccinated: Positive (>= 0.01 IU/mL) Unvaccinated: Negative (< 0.01 IU/mL) Tetanus IgG Value 1.61 IUnits/mL [facility] Comment: ADDITIONAL INFORMATION This test was developed and its performance characteristics determined by [facility] in a manner consistent with CLIA requirements. This test has not been cleared or approved by the U.S. Food and Drug Administration. Test Performed by: [place] [address] Carpet [employer]: Vandana Simons Ph.D.; CLIA# [id number] Blood 03/28/2024 10:2 4 AM SEXUAL ASSAULT NURSE 03/28/2024 2:06 PM SEXUAL ASSAULT NURSE Andrzej Wyman MD LAB BLOOD ORDERABLES Fi nal Result [facility] [address] [facility] [place] [address] [facility] * Strep pneumoniae antibody serotypes (03/28/2024 10:24 AM SEXUAL ASSAULT NURSE) S. pneumo Type 1 (1) 1.7 >=1.0 mcg/mL [facility] S. pneumo Type 2 (2) 4.5 >=1.0 mcg/mL [facility] S. pneumo Type 3 (3) 0.6 >=1.0 mcg/mL [facility] S. pneumo Type 4 (4) 0.8 >=1.0 mcg/mL [facility] S. pneumo Type 5 (5) 0.4 [...] developed and its performance characteristics determined by [facility] in a manner consistent with CLIA requirements. This test has not been cleared or approved by the U.S. Food and Drug Administration. Test Performed by: [place] [address] [employer]: Vandana Simons Ph.D.; CLIA# [id number] Blood 03/28/2024 10:2 4 AM SEXUAL ASSAULT NURSE 03/28/2024 2:06 PM SEXUAL ASSAULT NURSE Andrzej Wyman MD LAB BLOOD ORDERABLES Fi nal Result [facility] [place] [address] [place] * Protein electrophoresis with reflex, serum (03/28/2024 10:24 AM SEXUAL ASSAULT NURSE) Protein, sr 7.9 6.2 - 8.2 g/dL Albumin 4.3 3.2 - 5.0 g/dL [facility] Alpha-1 globulin 0.3 0.2 - 0.4 g/dL [facility] Alpha-2 globulin 0.9 0.5 - 1.0 g/dL [facility] Beta-1 globulin 0.4 0.3 - 0.6 g/dL [facility] Beta-2 globulin 0.3 0.2 - 0.6 g/dL [facility] Gamma globulin 1.7 0.5 - 1.7 g/dL [facility] SPEP interp Please see comment [facility] Comment: No apparent monoclonal peak Polyclonal increase in gamma globulins Reviewed and signed by Renny Anaya MD, PhD 03/29/2024 Blood 03/28/2024 10:2 4 AM SEXUAL ASSAULT NURSE 03/28/2024 11:49 AM SEXUAL ASSAULT NURSE Andrzej Wyman MD LAB BLOOD ORDERABLES Fi nal Result Performing Organization Address City/[facility] Co de Phone Number [facility] [place] [address] * (ABNORMAL) IgA (03/28/2024 10:24 AM SEXUAL ASSAULT NURSE) Immunoglobulin A <50(L) 70 - 400 mg/dL Blood 03/28/2024 10:2 4 AM SEXUAL ASSAULT NURSE 03/28/2024 11:48 AM SEXUAL ASSAULT NURSE Andrzej Wyman MD LAB BLOOD ORDERABLES Fi nal Result Performing Organization Address [facility] Co de Phone Number [facility] [place] [address] * IgM (03/28/2024 10:24 AM SEXUAL ASSAULT NURSE) Immunoglobulin M 77 40 - 230 mg/dL Blood 03/28/2024 10:2 4 AM SEXUAL ASSAULT NURSE 03/28/2024 11:48 AM SEXUAL ASSAULT NURSE Andrzej Wyman MD LAB BLOOD ORDERABLES Fi nal Result Performing Organization Address City/[facility] Co de Phone Number [facility] [place] [address] * (ABNORMAL) IgG (03/28/2024 10:24 AM SEXUAL ASSAULT NURSE) Immunoglobulin G 1,931(H) 700 - 1,600 mg/dL Blood 03/28/2024 10:2 4 AM SEXUAL ASSAULT NURSE 03/28/2024 11:48 AM SEXUAL ASSAULT NURSE Andrzej Wyman MD LAB BLOOD ORDERABLES nal Result [facility] [place] [address] * Comprehensive metabolic panel (03/28/2024 10:24 AM SEXUAL ASSAULT NURSE) Pathologist [facility] Sodium 140 135 - 145 mmol/L Potassium, pl 4.2 3.3 - 4.9 mmol/L [facility] Chloride 102 97 - 110 mmol/L [facility] CO2 29 22 - 32 mmol/L [facility] Anion gap 9 2 - 15 mmol/L [facility] BUN 23 6 - 25 mg/dL [facility] Creatinine 0.73 0.60 - 1.10 mg/dL [facility] Glucose 85 70 - 199 mg/dL [facility] Comment: Interpretive Data Fasting glucose >/= [...] Calcium 9.5 8.5 - 10.3 mg/dL [facility] Bilirubin, total 0.4 0.1 - 1.2 mg/dL [facility] Protein, pl 8.3 6.5 - 8.5 g/dL [facility] Albumin 4.5 3.5 - 5.0 g/dL [facility] Alk phos 80 40 - 130 Units/L [facility] ALT 33 7 - 45 Units/L [facility] AST 25 10 - 45 Units/L [facility] Blood 03/28/2024 10:2 4 AM SEXUAL ASSAULT NURSE 03/28/2024 11:48 AM SEXUAL ASSAULT NURSE Andrzej Wyman MD LAB BLOOD ORDERABLES Fi nal Result [facility] [place] [address] * COLONOSCOPY (01/23/2022 10:27 AM SEXUAL ASSAULT NURSE) Anatomical Region Laterality Modality Other Narrative Procedure Note Ez Agarwal MD - 01/23/2022 10:27 AM CST [facility] Patient Name: Ely Wei Procedure Date: 01/23/2022 10:27AM Date of : 1960 Admit Type: Outpatient Age: 61 Gender: Female Attending MD: Ez Agarwal M.D. Room: [facility] ENDOSCOPY ROOM 8 Note Status: Finalized Procedure: [...] The scope was passed under direct vision.The [id number] endoscope was introduced through the anus and [...] On: 01/23/2022 10:27 AM Recognized by the [employer] for promoting quality in endoscopy Ez Agarwal MD ENDOSCOPY PROCEDURES F inal Result from Last 3 Months or Most Recently Relevant to Health Maintenance Insurance MEDICARE HU[employer] MEDICARE SUPPLEMENT [place] [id number] Advance Directives For more information, please contact: [phone] * Full Code (Latest Code Status on File) Date Activated Date Inactivated Comments 01/23/2022 9:55 AM 01/23/2022 3:41 PM Care Teams Warehouse Packer Relationship Specialty Start Date End Date Mervin Jay DO PCP - General Internal Medicine 10/21/21
--- OUTSIDE RECORDS SUMMARY | 2024-05-18 10:11 | XMS_ITS | Continuity of Care Document ---
Author Organization [facility] Address [address] [place] [address] Phone Care Team Providers Care Pin Machine Tender Name Role Phone Niharika Tomlinson OD Unavailable [...] Diagnoses Date Provider Providers Copied on Encounter [facility], [address] [place] [address], [id number] , [place] tel:[phone] [facility] Post-op cataract surgery (chief complaint) PresbyopiaPresenc e of intraocular lensOther specified postprocedural statesCrystalline deposits in vitreous body, left eyeHypermetropia, bilateralRegular astigmatism, bilateral Mar-2 0-202 4 Davi Bundy. [address] [place] [address], [id number], [place]. tel:[phone] Referring Provider: Niharika Martinez, [address] [place] [address], [id number]. tel:[phone] [facility], [address] [place] [address], [id number] , [place] tel:[phone] [facility] Post-op cataract surgery (chief complaint) Cataract extraction status, right eye Mar-0 5-202 4 Davi Bundy. [address] [place] [address], [id number], [place]. [phone] Referring Provider: Niharika Martinez, [address] [place] [address], [id number]. tel:[phone] [facility], [address] [place] [address], [id number] , [place] tel:[phone] [facility] Combined forms of age-related cataract, right eye Mar-0 4-202 4 Eladio Helm. [address] [place] [address], [id number], [place]. tel:[phone] Referring Provider: Volodymyr Vicente, [address] [place] [address], [id number]. tel:[phone] [facility], [address] [place] [address], [id number] , [place] tel:[phone] [facility] Combined forms of age-related cataract, right eye Mar-0 3-202 4 Eladio Helm. [address] [place] [address], [id number], [place]. tel:[phone] [facility], [address] [place] [address], [id number] , [place] tel:[phone] [facility] Post-op cataract surgery (chief complaint) Cataract extraction status, left eye 4 Radha Petit. [address] [place] [address], [id number], [place]. tel:[phone] Referring Provider: Damaso Alberto, [address] [place] [address], [id number]. tel:[phone] [facility], [address] [place] [address], [id number] , [place] tel:[phone] [facility]- [facility] No Information 4 Eladio Helm. [address] [place] [address], [id number], [place]. tel:[phone] Referring Provider: Volodymyr Vicente, [address] [place] [address], [id number]. tel:[phone] [facility], [address] [place] [address], [id number] , [place] tel:[phone] [facility] No Information 4 Eladio Helm. [address] [place] [address], [id number], [place]. tel:[phone] [facility], [address] [place] [address], [id number] , [place] tel:[phone] [facility] cataract evaluation (chief complaint) Regular astigmatism, bilateralPresbyop iaCrystalline deposits in vitreous body, left eye 4 Eladio Helm. [address] [place] [address], [id number], [place]. tel:[phone] Other Provider: Radha brito, [facility] [address] [place], [address]. tel:[phone] ring Provider: Brando Hernandez, [address] [place], [address]. tel:[phone] Family History Family Member Type Diagnosis Age At Onset Problem No family history of Retinal disease Problem No family history of Amblyop ia Problem No family history of Strabis mus Problem No family history of Glaucom a Problem No family history of Blindne ss Problem No family history of Corneal disease Problem No family history of Macular degeneration Problem No family history of Catarac ts Payers Payer name Insurance type Covered libertarian [...]
--- OUTSIDE RECORDS SUMMARY | 2024-05-18 10:11 | XMS_ITS | Encounter Summary ---
Author Organization [facility] Address [address] [place] [address] Care Team Providers Care Gynecology Teacher Name Role Phone Jina Banda MD Primary Care Provider Unav ailable Encounter Details Date Type Department Care Team (Late st Contact Info) Description 09/05/1998 Outpatient Historical [facility] Internal Medicine - [facility] [id number] [place] [address] [address] [place] [address] Jina Banda MD NO ADDRESS ON FILE Social History Tobacco Use Types Packs/Day Years Used Date Smoking Tobacco: Never Assessed Comments Unknown Sex and Gender Information Value Date Recorded Sex Assigned at Not on file Legal Sex Female 5:30 AM STEAM BOX TENDER Gender Identity Not on file Sexual Orientation Not on file documented as of this encounter Plan of Treatment Upcoming Encounters Date Type Department Care Team (Late st Contact Info) Description 09/08/2024 12:00 PM CDT Office Visit [facility] Heart and Vascular At [address] [place] [address] Randal Cooley MD [address] [place] [address] [address] [place] [address] 10/27/2024 10:00 AM CDT Office Visit [facility] Heart and Vascular At [address] [place] [address] Randal Cooley MD [address] [place] [address] [address] [place] [address] 10/28/2024 9:30 AM CDT Office Visit [facility] Urology [facility] [address] [facility] [address] [place] [address] [place] [address] [facility] [address] [facility] [address] [place] [address] documented as of this encounter Visit Diagnoses Not on filedocumented in this encounter Additional Health Concerns Infection Onset Date Last Indicated Resolved Time R/O COVID-19 11/08/2019 11/08/2019 11/11/2019 12:3 1 AM CDT R/O COVID-19 02/01/2020 02/01/2020 02/03/2020 2:00 AM STEAM BOX TENDER documented as of this encounter Care Teams Gynecology Teacher Relationship Specialty Start Date End Date Jina Banda MD PCP - General Internal Medicine 06/20/16 12/03/21 documented as of this encounter
--- OUTSIDE RECORDS SUMMARY | 2024-05-18 10:11 | XMS_ITS | Encounter Summary ---
Author Organization [facility] Address [address] [place] [address] Phone Care Team Providers Care Air Conditioning Manager Name Role Phone Mervin Jay DO Primary Care Provider [phone]- [phone] Encounter Details Date Type Department Care Team (Late st Contact Info) Description 10/17/2019 Orders Only [facility] Scanning, Provider Social History Tobacco Use Types Packs/Day Years Used Date Smoking Tobacco: Never Assessed Comments Unknown Sex and Gender Information Value Date Recorded Sex Assigned at Not on file Legal Sex Female 6:45 PM TAPE MACHINE TAILER Gender Identity Not on file Sexual Orientation [...] on filedocumented in this encounter Care Teams Air Conditioning Manager Relationship Specialty Start Date End Date Mervin Jay DO PCP - General Internal Medicine 10/21/21 documented as of this encounter
--- OUTSIDE RECORDS SUMMARY | 2024-05-18 10:11 | XMS_ITS | Continuity of Care Document ---
Author Organization [facility] Address [address] [place] [address] Phone Care Team Providers Care Irrigation Engineer Name Role Phone [facility] Unavailable Unavailable Advance Directives Directive Yes / No Effective Date File Name No Information Encounters Encounter Description Practice Location Reason(s) For Visit Diagnoses Date Provider Providers Copied on Encounter [facility], [address], [id number], [place] tel:[phone] [facility] [place] [facility] No Information Surgery - Trusted Opinion [facility]. [address], [id number], [place]. tel:[phone] Referring Provider: Volodymyr Vicente, [address] [place], [address]. tel:[phone] Family History Family Member Type Diagnosis Age At Onset No Information Payers Payer name Insurance type Covered democrat ID Authoriza tion(s) [facility] [id number] Social History Type Description Quantity Date Captured [...]
--- OUTSIDE RECORDS SUMMARY | 2024-05-18 10:11 | XMS_ITS | Encounter Summary ---
Author Organization [facility] Address [address] [place] [address] Phone Care Team Providers Care Plaster And Stucco Worker Name Role Phone Mervin Jay DO Primary Care Provider [phone]- [phone] Encounter Details Date Type Department Care Team (Late st Contact Info) Description 02/23/2019 Orders Only [facility] Scanning, Provider Social History Tobacco Use Types Packs/Day Years Used Date Smoking Tobacco: Never Assessed Comments Unknown Sex and Gender Information Value Date Recorded Sex Assigned at Not on file Legal Sex Female 6:45 PM HEAD OF RESEARCH & INSIGHTS Gender Identity Not on file Sexual Orientation [...] on filedocumented in this encounter Care Teams Plaster And Stucco Worker Relationship Specialty Start Date End Date Mervin Jay DO PCP - General Internal Medicine 10/21/21 documented as of this encounter
--- OUTSIDE RECORDS SUMMARY | 2024-05-18 10:11 | XMS_ITS | Clinical Summary ---
Author Organization [employer] [facility] Address [address] [place] [address] Phone Care Team Providers Care Ironer Or Presser Name Role Phone Unavailable Primary Care Provider [...] the original. GI-- Dr. Haile Derm-- Dr. 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 Benign hypertension 10/22/2023 Inflammation of left sacroiliac joint 09/10/2022 Trochanteric bursitis of left hip 09/10/2022 DDD (degenerative disc disease), lumbar 09/11/19 Coronary artery disease invo lving curyung coronary artery of curyung heart without angina pectoris 03/04/2020 Chronic insomnia [...] STL ABSTRACTION Provider, Abstract 05/03/2024 10:20 AM HVAC FIELD SERVICE TECHNICIAN Office Visit [facility] [address] [place] [address] Jodee Wells PA 04/29/2024 10:00 AM HVAC FIELD SERVICE TECHNICIAN Procedure visit [facility] Urology [facility] [id number] [place] [address] [address] [place] [address] Frankie Haas MD Gross hematuria (Primary Dx); Frequency of urination; Acute cystitis with hematuria; Urgency of micturition; Postmenopausal atrophic vaginitis; Nocturia 04/12/2024 External Device Data STL ABSTRACTION Provider, Abstract 04/06/2024 External Device Data STL ABSTRACTION Provider, Abstract 03/22/2024 8:59 AM HVAC FIELD SERVICE TECHNICIAN - 03/22/2024 11:59 PM HVAC FIELD SERVICE TECHNICIAN Hospital Encounter [facility] [place] [facility] [address] [address] Jania Bhat NP Discharge Disposition: Home or Self Care 03/22/2024 8:52 AM HVAC FIELD SERVICE TECHNICIAN - 03/22/2024 11:59 PM HVAC FIELD SERVICE TECHNICIAN Hospital Encounter [facility] [address] [address] Donnie Centeno MD Discharge Disposition: Home or Self Care 03/15/[address] [address] Hieu Masterson RN RFA PRE PROCEDURE CALL 03/10/2024 11:45 AM HVAC FIELD SERVICE TECHNICIAN Office Visit [facility] Heart and Vascular At [address] [place] [address] Randal Cooley MD Lone atrial fibrillation (CMS/HCC) (Primary Dx); S/P coronary artery stent placement; Pure hypercholesterolemia; Benign hypertension; Palpitations; Coronary artery disease involving curyung coronary artery of curyung heart without angina pectoris 03/10/2024 Refill [facility] Heart and Vascular At [address] [place] [address] Randal Cooley MD Pure hypercholesterolemia 03/07/2024 9:59 AM HVAC FIELD SERVICE TECHNICIAN - 03/07/2024 11:59 PM HVAC FIELD SERVICE TECHNICIAN Hospital Encounter [facility] [place] [facility] [address] [address] Jania Bhat NP Sethi, Pawan S, MD Discharge Disposition: Home or Self Care 03/07/2024 9:49 AM HVAC FIELD SERVICE TECHNICIAN - 03/07/2024 11:59 PM HVAC FIELD SERVICE TECHNICIAN Hospital Encounter [facility] [address] [address] Donnie Centeno MD Discharge Disposition: Home or Self Care 02/23/2024 External Device Data STL ABSTRACTION Provider, Abstract 02/22/2024 8:51 AM HVAC FIELD SERVICE TECHNICIAN - 02/22/2024 11:59 PM HVAC FIELD SERVICE TECHNICIAN Hospital Encounter [facility] [place] [address] [place] [address] Jania Bhat NP Discharge Disposition: Home or Self Care 02/22/2024 8:45 AM HVAC FIELD SERVICE TECHNICIAN - 02/22/2024 11:59 PM HVAC FIELD SERVICE TECHNICIAN Hospital Encounter [facility] [place] [facility] [address] [place] [address] Donnie Centeno MD Discharge Disposition: Home or [...] Depression Brother 02/2012 Heart Disease Brother 02/2012 CT, COPD - 1st CT age 59 Hypertension Brother 02/2012 Other Brother 02/2012 COPD - smoker Healthy Daughter Amber West ulcerative co litis Heart Attack Father Sahil Claudia Heart Disease Father Sahil Claudia Heart Surgery Father Sahil Claudia High Cholesterol Father Sahil Claudia Hypertension Father Sahil Claudia Other Father Sahil Claudia copd Heart Disease Mother [place] Claudia Hypertension Mother Rhonda Taylor Kidney Disease Mother [place] Claudia Other Mother Rhonda Taylor Respiratory Disease [...] on file Legal Sex Female 5:30 AM HVAC FIELD SERVICE TECHNICIAN Gender Identity Not on file Sexual Orientation Not on file Occupation Industry Job Start Date Job End Date Not on file Not on file Not on file Not on file Last Filed Vital Signs Vital Sign Reading Time Taken Comments Blood Pressure 120/80 05/03/2024 10:09 AM HVAC FIELD SERVICE TECHNICIAN Pulse 72 05/03/2024 10:09 AM HVAC FIELD SERVICE TECHNICIAN Temperature 36.5 C (97.7 F) 02/23/2020 9:57 AM HVAC FIELD SERVICE TECHNICIAN Respiratory Rate 18 03/22/2024 9:59 AM HVAC FIELD SERVICE TECHNICIAN Oxygen Saturation 98% 05/03/2024 10:09 AM HVAC FIELD SERVICE TECHNICIAN Inhaled Oxygen Concentration - - Weight 67.6 kg (149 lb) 05/03/2024 10:09 AM HVAC FIELD SERVICE TECHNICIAN Height 154.9 cm (5' 1 ) 03/10/2024 11:46 AM HVAC FIELD SERVICE TECHNICIAN Body Mass Index 28.15 03/10/2024 11:46 AM HVAC FIELD SERVICE TECHNICIAN Plan of Treatment Upcoming Encounters Date Type Department Care Team (Late st Contact Info) Description 09/08/2024 12:00 PM CDT Office Visit [facility] Heart and Vascular At [address] [place] [address] Randal Cooley MD [address] [place] [address] [address] [place] [address] 10/27/2024 10:00 AM CDT Office Visit [facility] Heart and Vascular At [address] [place] [address] Randal Cooley MD [address] [facility] [address] [place] [address] 10/28/2024 9:30 AM CDT Office Visit [facility] [address] [facility] [address] [place] [address] [place] [address] [facility] [address] [place] [address] Health Maintenance Due Date Last [...] 10/17/2019, 08/19/2019 Medical Devices Implanted Type Area Electrical Controls Assembler Device Identifier Shelf Expiration Date Model / Serial / Lot Mesh Uhs Med Uhsm6 - [id number] Implanted:Qty : 1 on 08/06/2016 by Naima Guadarrama MD at [facility] Right: Abdomen [employer]- [employer] [id number] 11/13/2017 [facility] / / [id number] Stent Procedures Procedure Name Priority Date/Time Associated Diagnosis Comments POC URINALYSIS DIPSTICK AUTOMATED Routine 04/29/2024 11:33 AM HVAC FIELD SERVICE TECHNICIAN Gross hematuria XR FLUORO NEEDLE GUIDANCE SPINE Routine 03/22/2024 9:44 AM HVAC FIELD SERVICE TECHNICIAN XR FLUORO NEEDLE GUIDANCE SPINE Routine 03/07/2024 11:01 AM HVAC FIELD SERVICE TECHNICIAN XR FLUORO NEEDLE GUIDANCE SPINE Routine 02/22/2024 9:18 AM HVAC FIELD SERVICE TECHNICIAN MAMMO SCREEN BILAT W OR WO CAD Routine 04/28/2022 COLONOSCOPY REPORT 09/08/2018 7: 40 AM CDT OCCULT BLOOD IMMUNOASSAY, COLORECTAL SCREEN Routine 12/08/2016 8:58 PM CDT Chronic anemia GLUCOSE FASTING Routine 04/29/2008 8:10 AM HVAC FIELD SERVICE TECHNICIAN Lipid Screening from Last 3 Months or Most Recently Relevant to Health Maintenance Results * (ABNORMAL) POC URINALYSIS DIPSTICK AUTOMATED (04/29/2024 11:33 AM HVAC FIELD SERVICE TECHNICIAN) COLOR UA POC Yellow Pale to Dark Yellow [facility] CLARITY UA POC Clear Clear, Other [facility] GLUCOSE UA POC Negative Negative, Normal [facility] BILIRUBIN UA POC Negative Negative [facility] KETONES UA POC Negative Negative [facility] SPECIFIC GRAVITY UA POC <=1.005 1.000 - 1.030 [facility] BLOOD UA POC Negative Negative [facility] PH UA POC 6.0 5.0 - 8.0 [facility] PROTEIN UA POC Negative Negative [facility] UROBILINOGEN UA POC 0.2 <2.0 mg/dL [facility] NITRITE U[facility] POC Negative Negative [facility] LEUKOCYTE ESTERASE UA POC 1+(A) Negative [facility] KIT LOT NUMBER POC [id number] [facility] KIT EXP DATE POC 11/13/2024 [facility] Urine 04/29/2024 11:3 3 AM HVAC FIELD SERVICE TECHNICIAN us Frankie Haas MD POINT OF CARE TESTING Fin al Result [facility] CLIA# [id number] [facility] [address] [place] [address] * XR FLUORO NEEDLE GUIDANCE SPINE (03/22/2024 9:44 AM HVAC FIELD SERVICE TECHNICIAN) Only the most recent of3 resultswithin the time period is included. Narrative [facility] - 03/22/2024 9:44 AM HVAC FIELD SERVICE TECHNICIAN Order information only. Exam was auto-finalized. us Jania Bhat NP DIAGNOSTIC IMAGING ORDERABL ES Final Result Performing Organization Address City/[facility] Co de Phone Number [facility] CLIA# [id number] [facility] [address] [place] [address] * MAMMO SCREEN BILAT W OR WO CAD (04/28/2022) Anatomical Region Laterality Modality Breast Bilateral Other us Garo Chandler MD MAMMO ORDERABLES Edited Res ult - Final * COLONOSCOPY REPORT (09/08/2018 7:40 AM CDT) Narrative Procedure Note Felix Webber MD - 09/08/2018 7:39 AM CDT [facility] Endoscopy Patient Name: Ely Wei Procedure Date: [...] electronically. Number of Addenda: [phone] [facility]; [place] [address] Felix Webber MD GI PROCEDURE ORDERABLES Final Re sult * OCCULT BLOOD IMMUNOASSAY, COLORECTAL SCREEN (12/08/2016 8:58 PM CDT) OCCULT BLOOD, STOOL Negative Negative 12/09/2016 10:07 PM CDT [facility] Stool STOOL SPECIMEN / Unknown Collection / Unknown 12/08/2016 8:58 PM CDT 12/09/2016 8:59 PM CDT Jina Banda MD BODY FLUIDS AND STOOLS Africa l Result [facility] CLIA# [id number] [address] [place] [address] * GLUCOSE FASTING (04/29/2008 8:10 AM HVAC FIELD SERVICE TECHNICIAN) GLUCOSE FASTING 88 65 - 99 mg/dL [facility] Blood specimen (specimen) 04/29/2008 8:10 AM HVAC FIELD SERVICE TECHNICIAN 04/29/2008 2:45 PM HVAC FIELD SERVICE TECHNICIAN Jina Banda MD CHEMISTRY ORDERABLES Final Result INTERFACE SYSTEM Refer to clinic/hospital department [facility] CLIA# [id number] [address] [address] from Last 3 Months or Most Recently Relevant to Health [place] [address] MEDICARE PART A AND B [facility] MEDICARE SUPPLEMENT , [place] [address] RX [employer] RX Member Subscriber Plan / Payer (Ef fective 2023-Present) Name:Ely Wei Relation to Subscriber:Self Name:Ely Wei Payer ID:Not on file Group ID:[id number] Type:RX Medicare Part D Address: [address] [address] [employer] [employer] Medicare Part B Advance Directives For more information, please contact: [phone] * Full Code (Latest Code Status on [...]
--- OUTSIDE RECORDS SUMMARY | 2024-05-18 10:11 | XMS_ITS | Encounter Summary ---
Author Organization [facility] Address [address] [place] [address] Care Team Providers Care Installation Helper Name Role Phone Jina Banda MD Primary Care Provider Unav ailable Encounter Details Date Type Department Care Team (Latest Contact Info) Description 11/24/2001 Outpatient Historical [facility] Chato Aguilera MD [address] [place], [place] [id number] [place] [address] SCREENING MAMM-MAILG NEOPL-OTHER (Primary Dx) Social History Tobacco Use Types Packs/Day Years Used Date Smoking Tobacco: Never Assessed Comments Unknown Sex and Gender Information Value Date Recorded Sex Assigned at Not on file Legal Sex Female 5:30 AM VITREO RETINAL SURGEON Gender Identity Not on file Sexual Orientation Not on file documented as of this encounter Plan of Treatment Upcoming Encounters Date Type Department Care Team (Late st Contact Info) Description 09/08/2024 12:00 PM CDT Office Visit [facility] Heart and Vascular At [address] [place] [address] Randal Cooley MD [address] [place] [address] [address] [place], [place] [id number] 10/27/2024 10:00 AM CDT Office Visit [facility] Heart and Vascular At [address] [place] [address] Randal Cooley MD [address] [place] [address] [address] [place] [address] 10/28/2024 9:30 AM CDT Office Visit [facility] Urology [facility] [address] [facility] [address] [place] [address] [place] [address] [facility] [address] [place] [address] documented as of this encounter Visit Diagnoses Diagnosis Other screening mammogram- Primary documented in this encounter Additional Health Concerns Infection Onset Date Last Indicated Resolved Time R/O COVID-19 11/08/2019 11/08/2019 11/11/2019 12:3 1 AM CDT R/O COVID-19 02/01/2020 02/01/2020 02/03/2020 2:00 AM VITREO RETINAL SURGEON documented as of this encounter Care Teams Installation Helper Relationship Specialty Start Date End Date Jina Banda MD PCP - General Internal Medicine 06/20/16 12/03/21 documented as of this encounter
--- OUTSIDE RECORDS SUMMARY | 2024-05-18 10:11 | XMS_ITS | Encounter Summary ---
Author Organization [facility] Address [address] [place] [address] Care Team Providers Care Carpet Mechanic Name Role Phone Jina Banda MD Primary Care Provider Unav ailable Encounter Details Date Type Department Care Team (Late st Contact Info) Description 04/18/2004 Outpatient Historical [facility] Internal Medicine - [facility] [id number] [place] [address] [address] [place] [address] Jina Banda MD NO ADDRESS ON FILE Social History Tobacco Use Types Packs/Day Years Used Date Smoking Tobacco: Never Assessed Comments Unknown Sex and Gender Information Value Date Recorded Sex Assigned at Not on file Legal Sex Female 5:30 AM ALIGNMENT SPECIALIST Gender Identity Not on file Sexual Orientation Not on file documented as of this encounter Plan of Treatment Upcoming Encounters Date Type Department Care Team (Late st Contact Info) Description 09/08/2024 12:00 PM CDT Office Visit [facility] Heart and Vascular At [address] [place] [address] Randal Cooley MD [address] [place] [address] [address] [place] [address] 10/27/2024 10:00 AM CDT Office Visit [facility] Heart and Vascular At [address] [place] [address] Randal Cooley MD [address] [place] [address] [address] [place] [address] 10/28/2024 9:30 AM CDT Office Visit [facility] Urology [facility] [address] [facility] [address] [place] [address] [place] [address] [facility] [address] [facility] [address] [place] [address] documented as of this encounter Visit Diagnoses Not on filedocumented in this encounter Additional Health Concerns Infection Onset Date Last Indicated Resolved Time R/O COVID-19 11/08/2019 11/08/2019 11/11/2019 12:3 1 AM CDT R/O COVID-19 02/01/2020 02/01/2020 02/03/2020 2:00 AM ALIGNMENT SPECIALIST documented as of this encounter Care Teams Carpet Mechanic Relationship Specialty Start Date End Date Jina Banda MD PCP - General Internal Medicine 06/20/16 12/03/21 documented as of this encounter
--- OUTSIDE RECORDS SUMMARY | 2024-05-18 10:11 | XMS_ITS | Encounter Summary ---
Author Organization [facility] Address [address] [place] [address] Care Team Providers Care Life Skills Instructor Name Role Phone Jina Banda MD Primary [...] Sex Female 5:30 AM FOOD AND BEVERAGE CASHIER Gender Identity Not on file Sexual Orientation Not on file documented as of this encounter Plan of Treatment Upcoming Encounters Date Type Department Care Team (Late st Contact Info) Description 09/08/2024 12:00 PM CDT Office Visit [facility] Heart and Vascular At [address] [place] [address] Randal Cooley MD [address] [place] [address] [address] [place] [address] 10/27/2024 10:00 AM CDT Office Visit [facility] Heart and Vascular At [address] [place] [address] Randal Cooley MD [address] [place] [address] [address] [place] [address] 10/28/2024 9:30 AM CDT Office Visit [facility] Urology [facility] [address] [facility] [facility] [address] [place] [address] [place] [address] [facility] [address] [email or web address] [address] [place] [address] documented as of this encounter Visit Diagnoses Diagnosis Heat exhaustion, unspecified- Primary documented in this encounter Additional Health Concerns Infection Onset Date Last Indicated Resolved Time R/O COVID-19 11/08/2019 11/08/2019 11/11/2019 12:3 1 AM CDT R/O COVID-19 02/01/2020 02/01/2020 02/03/2020 2:00 AM FOOD AND BEVERAGE CASHIER documented as of this encounter Care Teams Life Skills Instructor Relationship Specialty Start Date End Date Jina Banda MD PCP - General Internal Medicine 06/20/16 12/03/21 documented as of this encounter
--- OUTSIDE RECORDS SUMMARY | 2024-05-18 10:11 | XMS_ITS | Encounter Summary ---
Author Organization [facility] Address [address] [place] [address] Care Team Providers Care Clinical Specialist Name Role Phone Jina Banda MD [...] on file Legal Sex Female 5:30 AM COLORED LIQUID PLASTIC APPLIER Gender Identity Not on file Sexual Orientation Not on file documented as of this encounter Plan of Treatment Upcoming Encounters Date Type Department Care Team (Late st Contact Info) Description 09/08/2024 12:00 PM CDT Office Visit [facility] Heart and Vascular At [address] [place] [address] Randal Cooley MD [address] [place] [address] [address] [place] [address] 10/27/2024 10:00 AM CDT Office Visit [facility] Heart and Vascular At [address] [place] [address] Randal Cooley MD [address] [place] [address] [address] [place] [address] 10/28/2024 9:30 AM CDT Office Visit [facility] Urology [facility] [address] [facility] [address] [place] [address] [place] [address] [facility] [address] [place] [address] documented as of this encounter Visit Diagnoses Diagnosis Other chest pain- Primary documented in this encounter Additional Health Concerns Infection Onset Date Last Indicated Resolved Time R/O COVID-19 11/08/2019 11/08/2019 11/11/2019 12:3 1 AM CDT R/O COVID-19 02/01/2020 02/01/2020 02/03/2020 2:00 AM COLORED LIQUID PLASTIC APPLIER documented as of this encounter Care Teams Clinical Specialist Relationship Specialty Start Date End Date Jina Banda MD PCP - General Internal Medicine 06/20/16 12/03/21 documented as of this encounter
--- OUTSIDE RECORDS SUMMARY | 2024-05-18 10:11 | XMS_ITS | Encounter Summary ---
Author Organization [facility] Address [address] [place] [address] Care Team Providers Care Trolley Coach Driver Name Role Phone Jina Banda MD Primary Care Provider Unav ailable Encounter Details Date Type Department Care Team (Late st Contact Info) Description 05/03/2003 Outpatient Historical [facility] Internal Medicine - [facility] [id number] [place] [address] [address] [place] [address] Jina Banda MD NO ADDRESS ON FILE Social History Tobacco Use Types Packs/Day Years Used Date Smoking Tobacco: Never Assessed Comments Unknown Sex and Gender Information Value Date Recorded Sex Assigned at Not on file Legal Sex Female 5:30 AM TERRAZZO WORKER HELPER Gender Identity Not on file Sexual Orientation Not on file documented as of this encounter Plan of Treatment Upcoming Encounters Date Type Department Care Team (Late st Contact Info) Description 09/08/2024 12:00 PM CDT Office Visit [facility] Heart and Vascular At [address] [place] [address] Randal Cooley MD [address] [place] [address] [address] [place] [address] 10/27/2024 10:00 AM CDT Office Visit [facility] Heart and Vascular At [address] 2014 [place] [address] Randal Cooley MD [address] [place] [address] [address] [place] [address] 10/28/2024 9:30 AM CDT Office Visit [facility] Urology [facility] [address] [facility] [address] [place] [address] [place] [address] [facility] [address] [facility] [address] [place] [address] documented as of this encounter Visit Diagnoses Not on filedocumented in this encounter Additional Health Concerns Infection Onset Date Last Indicated Resolved Time R/O COVID-19 11/08/2019 11/08/2019 11/11/2019 12:3 1 AM CDT R/O COVID-19 02/01/2020 02/01/2020 02/03/2020 2:00 AM TERRAZZO WORKER HELPER documented as of this encounter Care Teams Trolley Coach Driver Relationship Specialty Start Date End Date Jina Banda MD PCP - General Internal Medicine 06/20/16 12/03/21 documented as of this encounter
--- OUTSIDE RECORDS SUMMARY | 2024-05-18 10:11 | XMS_ITS | Encounter Summary ---
Author Organization [facility] Address [address] [place] [address] Care Team Providers Care Chute Tapper Name Role Phone Jina Banda MD Primary Care Provider Unav ailable Encounter Details Date Type Department Care Team (Late st Contact Info) Description 07/09/2000 Outpatient Historical [facility] Internal Medicine - [facility] [phone] [place] [address] [address] [place] [address] Jina Banda MD NO ADDRESS ON FILE Social History Tobacco Use Types Packs/Day Years Used Date Smoking Tobacco: Never Assessed Comments Unknown Sex and Gender Information Value Date Recorded Sex Assigned at Not on file Legal Sex Female 5:30 AM PARACHUTE MARKER Gender Identity Not on file Sexual Orientation Not on file documented as of this encounter Plan of Treatment Upcoming Encounters Date Type Department Care Team (Late st Contact Info) Description 09/08/2024 12:00 PM CDT Office Visit [facility] Heart and Vascular At [address] [place] [address] Randal Cooley MD [address] [place] [address] [address] [place] [address] 10/27/2024 10:00 AM CDT Office Visit [facility] Heart and Vascular At [address] [place] [address] Randal Cooley MD [address] [place] [address] [address] [place] [address] 10/28/2024 9:30 AM CDT Office Visit [facility] Urology [facility] [address] [facility] [address] [place] [address] [place] [address] [facility] [address] [facility] [address] [place] [address] documented as of this encounter Visit Diagnoses Not on filedocumented in this encounter Additional Health Concerns Infection Onset Date Last Indicated Resolved Time R/O COVID-19 11/08/2019 11/08/2019 11/11/2019 12:3 1 AM CDT R/O COVID-19 02/01/2020 02/01/2020 02/03/2020 2:00 AM PARACHUTE MARKER documented as of this encounter Care Teams Chute Tapper Relationship Specialty Start Date End Date Jina Banda MD PCP - General Internal Medicine 06/20/16 12/03/21 documented as of this encounter
--- OUTSIDE RECORDS SUMMARY | 2024-05-18 10:11 | XMS_ITS | Encounter Summary ---
Author Organization [facility] Address [address] [place] [address] Care Team Providers Care Warehouse Traffic Supervisor Name Role Phone Jina Banda MD Primary Care Provider Unav ailable Encounter Details Date Type Department Care Team (Late st Contact Info) Description 10/06/2002 Outpatient Historical [facility] Internal Medicine - [facility] [phone] [place] [address] [address] [place] [address] Jina Banda MD NO ADDRESS ON FILE Social History Tobacco Use Types Packs/Day Years Used Date Smoking Tobacco: Never Assessed Comments Unknown Sex and Gender Information Value Date Recorded Sex Assigned at Not on file Legal Sex Female 5:30 AM COMMISSIONED POLICE OFFICER Gender Identity Not on file Sexual Orientation Not on file documented as of this encounter Plan of Treatment Upcoming Encounters Date Type Department Care Team (Late st Contact Info) Description 09/08/2024 12:00 PM CDT Office Visit [facility] Heart and Vascular At [address] [place] [address] Randal Cooley MD [address] [place] [address] [address] [place] [address] 10/27/2024 10:00 AM CDT Office Visit [facility] Heart and Vascular At [address] [place] [address] Randal Cooley MD [address] [place] [address] 2014 [place] [address] 10/28/2024 9:30 AM CDT Office Visit [facility] [address] [facility] [address] [place] [address] [place] [address] [facility] [address] [facility] [address] [place] [address] documented as of this encounter Visit Diagnoses Not on filedocumented in this encounter Additional Health Concerns Infection Onset Date Last Indicated Resolved Time R/O COVID-19 11/08/2019 11/08/2019 11/11/2019 12:3 1 AM CDT R/O COVID-19 02/01/2020 02/01/2020 02/03/2020 2:00 AM COMMISSIONED POLICE OFFICER documented as of this encounter Care Teams Warehouse Traffic Supervisor Relationship Specialty Start Date End Date Jina Banda MD PCP - General Internal Medicine 06/20/16 12/03/21 documented as of this encounter
--- OUTSIDE RECORDS SUMMARY | 2024-05-18 10:11 | XMS_ITS | Encounter Summary ---
Author Organization [facility] Address [address] [place] [address] Care Team Providers Care Rail Operations Controller Name Role Phone Jina Banda MD Primary Care Provider Unav ailable Encounter Details Date Type Department Care Team (Late st Contact Info) Description 02/12/2000 Outpatient Historical [facility] Internal Medicine - [facility] [id number] [place] [address] [address] [place] [address] Jina Banda MD NO ADDRESS ON FILE Social History Tobacco Use Types Packs/Day Years Used Date Smoking Tobacco: Never Assessed Comments Unknown Sex and Gender Information Value Date Recorded Sex Assigned at Not on file Legal Sex Female 5:30 AM BRAZER PRODUCTION LINE Gender Identity Not on file Sexual Orientation Not on file documented as of this encounter Plan of Treatment Upcoming Encounters Date Type Department Care Team (Late st Contact Info) Description 09/08/2024 12:00 PM CDT Office Visit [facility] Heart and Vascular At [address] [place] [address] Randal Cooley MD [address] [place] [address] [address] [place] [address] 10/27/2024 10:00 AM CDT Office Visit [facility] Heart and Vascular At [address] [place] [address] Randal Cooley MD [address] [place] [address] [address] [place] [address] 10/28/2024 9:30 AM CDT Office Visit [facility] Urology [facility] [address] [facility] [address] [place] [address] [place] [address] [facility] [address] [facility] [address] [place] [address] documented as of this encounter Visit Diagnoses Not on filedocumented in this encounter Additional Health Concerns Infection Onset Date Last Indicated Resolved Time R/O COVID-19 11/08/2019 11/08/2019 11/11/2019 12:3 1 AM CDT R/O COVID-19 02/01/2020 02/01/2020 02/03/2020 2:00 AM BRAZER PRODUCTION LINE documented as of this encounter Care Teams Rail Operations Controller Relationship Specialty Start Date End Date Jina Banda MD PCP - General Internal Medicine 06/20/16 12/03/21 documented as of this encounter
--- OUTSIDE RECORDS SUMMARY | 2024-05-18 10:11 | XMS_ITS | Encounter Summary ---
Author Organization [facility] Address [address] [place] [address] Care Team Providers Care Gate Technician Name Role Phone Jina Banda MD Primary Care Provider Unav ailable Encounter Details Date Type Department Care Team (Late st Contact Info) Description 10/07/2000 Outpatient Historical [facility] Internal Medicine - [facility] [phone] [place] [address] [address] [place] [address] Jina Banda MD NO ADDRESS ON FILE Social History Tobacco Use Types Packs/Day Years Used Date Smoking Tobacco: Never Assessed Comments Unknown Sex and Gender Information Value Date Recorded Sex Assigned at Not on file Legal Sex Female 5:30 AM CASH APPLICATIONS REPRESENTATIVE Gender Identity Not on file Sexual Orientation Not on file documented as of this encounter Plan of Treatment Upcoming Encounters Date Type Department Care Team (Late st Contact Info) Description 09/08/2024 12:00 PM CDT Office Visit [facility] Heart and Vascular At [address] [place] [address] Randal Cooley MD [address] [place] [address] [address] [place] [address] 10/27/2024 10:00 AM CDT Office Visit [facility] Heart and Vascular At [address] [place] [address] Randal Cooley MD [address] [place] [address] 2014 [place] [address] 10/28/2024 9:30 AM CDT Office Visit [facility] Urology [facility] [address] [facility] [address] [place] [address] [place] [address] [facility] [address] [facility] [address] [place] [address] documented as of this encounter Visit Diagnoses Not on filedocumented in this encounter Additional Health Concerns Infection Onset Date Last Indicated Resolved Time R/O COVID-19 11/08/2019 11/08/2019 11/11/2019 12:3 1 AM CDT R/O COVID-19 02/01/2020 02/01/2020 02/03/2020 2:00 AM CASH APPLICATIONS REPRESENTATIVE documented as of this encounter Care Teams Gate Technician Relationship Specialty Start Date End Date Jina Banda MD PCP - General Internal Medicine 06/20/16 12/03/21 documented as of this encounter
--- OUTSIDE RECORDS SUMMARY | 2024-05-18 10:11 | XMS_ITS | Encounter Summary ---
Author Organization [facility] Address [address] [place] [address] Care Team Providers Care Child Welfare Specialist Name Role Phone Unavailable Primary Care Provider Unavailabl e Encounter Details Date Type Department Care Team (Late st Contact Info) Description 02/12/2023 Telephone [facility] [address] [place] [address] Sarah Rai RN Social History Tobacco Use Types Packs/Day Years Used Date Smoking Tobacco: Never Smokeless Tobacco: Never Alcohol Use Standard Drinks/Week Comments Not Currently 0 (1 standard drink = 0.6 oz pur e alcohol) Comments No Sex and Gender Information Value Date Recorded Sex Assigned at Not on file Legal Sex Female 5:30 AM REVENUE ACCOUNTING MANAGER Gender Identity Not on file Sexual Orientation Not on file Occupation Industry Job Start Date Job End Date Not on file Not on file Not on file Not on file documented as of this encounter Miscellaneous Notes * Telephone Encounter - Sarah Rai RN - 02/12/2023 1:15 PM REVENUE ACCOUNTING MANAGER Attempted to reach patient regarding follow up after injection. LVM to return call NUE ACCOUNTING MANAGER documented in this encounter Plan of Treatment Upcoming Encounters Date Type Department Care Team (Late st Contact Info) Description 09/08/2024 12:00 PM CDT Office Visit [facility] Heart and Vascular At [address] [place] [address] Randal Cooley MD [address] [place] [address] [address] [place] [address] 10/27/2024 10:00 AM CDT Office Visit [facility] Heart and Vascular At [address] [place] [address] Randal Cooley MD [address] [place] [address] [address] [place] [address] 10/28/2024 9:30 AM CDT Office Visit [facility] Urology [facility] [address] [facility] [address] [place] [address] [place] [address] [facility] [address] [facility] [address] [place] [address] documented as of this encounter Visit Diagnoses Not on filedocumented in this encounter
--- OUTSIDE RECORDS SUMMARY | 2024-05-18 10:11 | XMS_ITS | Encounter Summary ---
Author Organization [facility] Address [address] [place] [address] Care Team Providers Care National Accounts Sales Name Role Phone Jina Banda MD Primary Care Provider Unav ailable Encounter Details Date Type Department Care Team (Late st Contact Info) Description 03/14/2015 Chart Note [facility] [employer] [address] [place] [place] [address] Briseida Solano, Physical Therapist Social History Tobacco Use Types Packs/Day Years Used Date Smoking Tobacco: Never Smokeless Tobacco: Never Alcohol Use Standard Drinks/Week Comments No 0 (1 standard drink = 0.6 oz pur e alcohol) Comments No Sex and Gender Information Value Date Recorded Sex Assigned at Not on file Legal Sex Female 5:30 AM EDUCATION DIRECTOR Gender Identity Not on file Sexual Orientation Not on file Occupation Industry Job Start Date Job End Date Not on file Not on file Not on file Not on file documented as of this encounter Progress Notes * Briseida Solano, Physical Therapist - 03/14/2015 6:49 PM CST Images from the original note were not included. Physical Therapy Discharge Summary Patient: Ely Wei Date: 03/14/2015 Date of : 1960 Referring [...] in order to assist with completion of accounts collector. met 2. Patient to be able to [...] Solano, PT, DPT, OCS [place] License No.: [id number] [facility] [address] [place] [phone] (phone) [phone] (fax) ATION DIRECTOR documented in this encounter Plan of Treatment Upcoming Encounters Date Type Department Care Team (Late st Contact Info) Description 09/08/2024 12:00 PM CDT Office Visit [facility] Heart and Vascular At [address] [place] [address] Randal Cooley MD [address] [place] [address] 2014 [place] [address] 10/27/2024 10:00 AM CDT Office Visit [facility] Heart and Vascular At [address] [place] [address] Randal Cooley MD [address] [place] [address] 2014 [place] [address] 10/28/2024 9:30 AM CDT Office Visit [facility] Urology [facility] [address] [address] [place] [address] [address] documented as of this encounter Visit Diagnoses Not on filedocumented in this encounter Additional Health Concerns Infection Onset Date Last Indicated Resolved Time R/O COVID-19 11/08/2019 11/08/2019 11/11/2019 12:3 1 AM CDT R/O COVID-19 02/01/2020 02/01/2020 02/03/2020 2:00 AM EDUCATION DIRECTOR documented as of this encounter Care Teams National Accounts Sales Relationship Specialty Start Date End Date Jina Banda MD PCP - General Internal Medicine 06/20/16 12/03/21 documented as of this encounter
--- OUTSIDE RECORDS SUMMARY | 2024-05-18 10:11 | XMS_ITS | Encounter Summary ---
Author Organization [facility] Address [address] [place] [address] Care Team Providers Care Radiographer Technologist Name Role Phone Jina Banda MD Primary Care Provider Unav ailable Encounter Details Date Type Department Care Team (Late st Contact Info) Description 01/11/2001 Outpatient Historical [facility] Internal Medicine - [facility] [phone] [place] [address] [address] [place] [address] Jina Banda MD NO ADDRESS ON FILE Social History Tobacco Use Types Packs/Day Years Used Date Smoking Tobacco: Never Assessed Comments Unknown Sex and Gender Information Value Date Recorded Sex Assigned at Not on file Legal Sex Female 5:30 AM PROFESSOR OF VIOLIN Gender Identity Not on file Sexual Orientation Not on file documented as of this encounter Plan of Treatment Upcoming Encounters Date Type Department Care Team (Late st Contact Info) Description 09/08/2024 12:00 PM CDT Office Visit [facility] Heart and Vascular At [address] [place] [address] Randal Cooley MD [address] [place] [address] 2014 [place] [address] 10/27/2024 10:00 AM CDT Office Visit [facility] Heart and Vascular At [address] [place] [address] Randal Cooley MD [address] [place] [address] [address] [place] [address] 10/28/2024 9:30 AM CDT Office Visit [facility] Urology [facility] [address] [facility] [address] [place] [address] [place] [address] [facility] [address] [facility] [address] [place] [address] documented as of this encounter Visit Diagnoses Not on filedocumented in this encounter Additional Health Concerns Infection Onset Date Last Indicated Resolved Time R/O COVID-19 11/08/2019 11/08/2019 11/11/2019 12:3 1 AM CDT R/O COVID-19 02/01/2020 02/01/2020 02/03/2020 2:00 AM PROFESSOR OF VIOLIN documented as of this encounter Care Teams Radiographer Technologist Relationship Specialty Start Date End Date Jina Banda MD PCP - General Internal Medicine 06/20/16 12/03/21 documented as of this encounter
--- OUTSIDE RECORDS SUMMARY | 2024-05-18 10:11 | XMS_ITS | Clinical Summary ---
Author Organization [facility] Address [facility] [place] [address] Care Team Providers Care Manager Pulmonary Name Role Phone Mervin Jay DO Primary Care Provider [phone] Allergies Active Allergy Reactions Criticality Noted Date [...] (01/06/2022): Added automatically from request for surgery [id number] Encounters Date Type Department Care Team Description 03/28/2024 10:15 AM PAPER SEALER Lab [facility] [address] [place] [address] Recurrent pneumonia 03/28/2024 9:10 AM PAPER SEALER Office Visit [facility] Allergy and Immunology [address] [facility] [address] [place] [address] Andrzej Wyman MD Recurrent pneumonia (Primary Dx); IgA deficiency (HCC) 03/07/2024 3:00 PM PAPER SEALER Office Visit [facility] Gastroenterology [address] [facility] [address] 2nd [address] [place] [address] Katelyn Toure NP Lymphocytic colitis (Primary Dx) 02/18/2024 10:30 AM PAPER SEALER Ancillary Procedure [facility] Cardiology [address] [place] [address] Atrial fibrillation, unspecified type (HCC) from Last [...] on file Legal Sex Female 6:45 PM PAPER SEALER Gender Identity Not on file Sexual Orientation Not on file Obstetrics History Last Filed Vital Signs Vital Sign Reading Time Taken Comments Blood Pressure 124/75 03/28/2024 9:10 AM PAPER SEALER Pulse 66 03/28/2024 9:10 AM PAPER SEALER Temperature 36.5 C (97.7 F) 03/28/2024 9:10 AM PAPER SEALER Respiratory Rate 15 01/23/2022 11:05 AM PAPER SEALER Oxygen Saturation 96% 03/07/2024 2:55 PM PAPER SEALER Inhaled Oxygen Concentration - - Weight 68.6 kg (151 lb 3.2 oz) 03/28/2024 9:10 A M PAPER SEALER Height 154.9 cm (5' 1 ) 03/28/2024 9:10 AM PAPER SEALER Body Mass Index 28.57 03/28/2024 9:10 AM PAPER SEALER Plan of Treatment Health Maintenance Due Date [...] TELEMETRY EVENT MONITOR Routine 03/28/2024 12:29 PM PAPER SEALER Atrial fibrillation, unspecified type (HCC) EGFR Routine 03/28/2024 10:24 AM PAPER SEALER Recurrent pneumonia DIFFERENTIAL AUTO Routine 03/28/2024 10: 24 AM PAPER SEALER Recurrent pneumonia COMPREHENSIVE METABOLIC PANEL Routine 03/28/2024 10:24 AM PAPER SEALER Recurrent pneumonia CBC WITH AUTO DIFFERENTIAL Routine 03/28/2024 10:24 AM PAPER SEALER Recurrent pneumonia IGA Routine 03/28/2024 10:24 AM PAPER SEALER Recurrent pneumonia IGG Routine 03/28/2024 10:24 AM PAPER SEALER Recurrent pneumonia IGM Routine 03/28/2024 10:24 AM PAPER SEALER Recurrent pneumonia IMMUNE COMPETENCE Routine 03/28/2024 10: 24 AM PAPER SEALER Recurrent pneumonia STREP PNEUMONIAE ANTIBODY SEROTYPES Routine 03/28/2024 10:24 AM PAPER SEALER Recurrent pneumonia TETANUS ANTIBODY, IGG Routine 03/28/2024 10:24 AM PAPER SEALER Recurrent pneumonia PROTEIN ELECTROPHORESIS, WITH REFLEX, SERUM Routine 03/28/2024 10:24 AM PAPER SEALER Recurrent pneumonia IMMUNOFIXATION, URINE Routine 03/28/2024 10:24 AM PAPER SEALER Recurrent pneumonia COLONOSCOPY 01/23/2022 10:27 AM PAPER SEALER from Last 3 Months or Most Recently Relevant to Health Maintenance Results * [facility] Mobile Cardiac Telemetry Event Monitor (03/28/2024 12:29 PM PAPER SEALER) Anatomical Region Laterality Modality Electrocardiogra phy Narrative 03/28/2024 12:29 PM PAPER SEALER AMBULATORY TUBE ROLLER REPORT Patient Name: Ely Wei Date of : 1960 Requesting Physician: YKA Date of interpretation: 03/28/24 Type of monitor : 30 day event monitor Date of the study/Enrollment period: Initiated on 02/18/2024 Indication: Atrial fibrillation Quality of the study: Adequate Interpretation: The basic cardiac rhythm is sinus with normal OK, QRS and QT intervals. The heart rate [...] was used to complete this document, therefore, traffic signal supervisor maintenance variances may occur. Prateek Perez MD [facility] 03/28/24 Procedure Note Prateek Perez MD - 03/28/2024 AMBULATORY TUBE ROLLER REPORT Patient Name: Ely Wei Date of : 1960 Requesting Physician: KYA Date of interpretation: 03/28/24 Type of monitor : 30 day event monitor Date of the study/Enrollment period: Initiated on 02/18/2024 Indication: Atrial fibrillation Quality of the study: Adequate Interpretation: The basic cardiac rhythm is sinus with normal OK, QRS andQT intervals. The heart rate varies [...] software was used to complete this document, therefore,traffic signal supervisor maintenance variances may occur. Prateek Perez MD FAC 03/28/24 us Jose Montez MD [facility] PROCEDURES F inal Result * eGFR (03/28/2024 10:24 AM PAPER SEALER) eGFR >90 >=60 mL/min/1. 73 m2 Comment: [...] reviewed 2021. Blood 03/28/2024 10:2 4 AM PAPER SEALER 03/28/2024 11:51 AM PAPER SEALER us Andrzej Wyman MD LAB BLOOD ORDERABLES Fi nal Result [facility] [place] [address] * Differential, auto (03/28/2024 10:24 AM PAPER SEALER) Neutrophil abs 4.2 1.5 - 6.5 K/cumm Imm gran abs 0.0 0.0 - 0.1 K/cumm [facility] Lymphocyte abs 1.9 0.8 - 3.3 K/cumm [facility] Monocyte abs 0.5 0.2 - 0.8 K/cumm [facility] Eosinophil abs 0.1 0.0 - 0.5 K/cumm [facility] Basophil abs 0.1 0.0 - 0.1 K/cumm [facility] Neutrophil pct 61.7 % [facility] Comment: Interpretive Data Percent cell count reference ranges are not reported, since discordance with absolute values may lead to misinterpretation of CBC data. Current Interpretive Data was last revised on 2017. Imm gran pct 0.4 % [facility] Comment: Interpretive Data Percent cell count reference ranges are not reported, since discordance with absolute values may lead to misinterpretation of CBC data. Current Interpretive Data was last revised on 2017. Lymphocyte pct 27.7 % [facility] Comment: Interpretive Data Percent cell count reference ranges are not reported, since discordance with absolute values may lead to misinterpretation of CBC data. Current Interpretive Data was last revised on 2017. Monocyte pct 7.6 % [facility] Comment: Interpretive Data Percent cell count reference ranges are not reported, since discordance with absolute values may lead to misinterpretation of CBC data. Current Interpretive Data was last revised on 2017. Eosinophil pct 1.7 % [facility] Comment: Interpretive Data Percent cell count reference ranges are not reported, since discordance with absolute values may lead to misinterpretation of CBC data. Current Interpretive Data was last revised on 2017. Basophil pct 0.9 % [facility] Comment: Interpretive Data Percent cell count reference ranges are not reported, since discordance with absolute values may lead to misinterpretation of CBC data. Current Interpretive Data was last revised on 2017. Blood 03/28/2024 10:2 4 AM PAPER SEALER 03/28/2024 11:49 AM PAPER SEALER Andrzej Wyman MD LAB BLOOD ORDERABLES Fi nal Result [facility] [place] [address] * Immune competence (03/28/2024 10:24 AM PAPER SEALER) [facility] CD3 pct 75 60 - 88 % CD3 Absolute 1,424 661 - 1,963 cells/mcL [facility] CD4 pct 45 31 - 64 % [facility] CD4 Absolute 858 365 - 1,294 cells/mcL [facility] CD8 pct 30 12 - 40 % [facility] CD8 Absolute 568 187 - 781 cells/mcL [facility] CD19 pct 17 6 - 25 % [facility] CD19 Absolute 312 86 - 488 cells/mcL [facility] [id number] pct 7 5 - 25 % [facility] [id number] Absolute 136 76 - 467 cells/mcL [facility] CD4/CD8 ratio 1.5 0.9 - 4.4 [facility] Blood 03/28/2024 10:2 4 AM PAPER SEALER 03/28/2024 11:49 AM PAPER SEALER Andrzej Wyman MD LAB BLOOD [place] [address] * Immunofixation, urine (03/28/2024 10:24 AM PAPER SEALER) [facility] Immunofixation, Ur Please see comment Comment: NO PARAPROTEIN DETECTED Reviewed and signed by Renny Anaya MD, PhD 03/30/2024 Urine 03/28/2024 10:2 4 AM PAPER SEALER 03/28/2024 12:06 PM PAPER SEALER Andrzej Wyman MD LAB URINE ORDERABLES Fi nal Result [facility] [place] [address] * CBC with auto differential (03/28/2024 10:24 AM PAPER SEALER) Pathologist [facility] WBC 6.9 3.8 - 9.9 K/cumm Hgb 12.5 11.9 - 15.5 g/dL [facility] Hct 38.7 35.6 - 45.5 % [facility] Plt 361 150 - 400 K/cumm [facility] MPV 10.2 9.1 - 12.3 fL [facility] RBC 4.41 3.90 - 5.20 M/cumm [facility] MCV 87.8 81.3 - 96.4 fL [facility] MCH 28.3 27.1 - 33.3 pg [facility] MCHC 32.3 32.3 - 35.7 g/dL [facility] RDW CV 14.1 11.1 - 14.9 % [facility] RDW SD 45.6 35.7 - 48.1 fL [facility] NRBC abs 0.00 0.00 - 0.01 K/cumm [facility] Blood 03/28/2024 10:2 4 AM PAPER SEALER 03/28/2024 11:49 AM PAPER SEALER Andrzej Wyman MD LAB BLOOD ORDERABLES nal Result [facility] [address] [facility] Department [place] [address] * Tetanus antibody, IgG (03/28/2024 10:24 AM PAPER SEALER) Pathologist [facility] Tetanus IgG Ab Positive [facility] Comment: REFERENCE VALUE Vaccinated: Positive (>= 0.01 IU/mL) Unvaccinated: Negative (< 0.01 IU/mL) Tetanus IgG Value 1.61 IUnits/mL [facility] Comment: ADDITIONAL INFORMATION This test was developed and its performance characteristics determined by [facility] in a manner consistent with CLIA requirements. This test has not been cleared or approved by the U.S. Food and Drug Administration. Test Performed by: [facility] Laboratories - [facility] [address] [place] [address] Blue Line Trimmer: Vandana Simons Ph.D.; CLIA# [id number] Blood 03/28/2024 10:2 4 AM PAPER SEALER 03/28/2024 2:06 PM PAPER SEALER us Andrzej Wyman MD LAB BLOOD ORDERABLES Fi nal Result [facility] One [facility] Department [place] [address] [facility] * Strep pneumoniae antibody serotypes (03/28/2024 10:24 AM PAPER SEALER) S. pneumo Type 1 (1) 1.7 >=1.0 [...] developed and its performance characteristics determined by [facility] in a manner consistent with CLIA requirements. This test has not been cleared or approved by the U.S. Food and Drug Administration. Test Performed by: [facility] Laboratories - [facility] [address] [place] [address] Blue Line Trimmer: Vandana Simons Ph.D.; CLIA# [id number] Blood 03/28/2024 10:2 4 AM PAPER SEALER 03/28/2024 2:06 PM PAPER SEALER Andrzej Wyman MD LAB BLOOD ORDERABLES Fi nal Result Performing Organization Address City/[facility] Co de Phone Number [facility] Department [place] [address] [facility] * Protein electrophoresis with reflex, serum (03/28/2024 10:24 AM PAPER SEALER) Protein, sr 7.9 6.2 - 8.2 g/dL Albumin 4.3 3.2 - 5.0 g/dL [facility] Alpha-1 globulin 0.3 0.2 - 0.4 g/dL [facility] Alpha-2 globulin 0.9 0.5 - 1.0 g/dL [facility] Beta-1 globulin 0.4 0.3 - 0.6 g/dL [facility] Beta-2 globulin 0.3 0.2 - 0.6 g/dL [facility] Gamma globulin 1.7 0.5 - 1.7 g/dL [facility] SPEP interp Please see comment [facility] Comment: No apparent monoclonal peak Polyclonal increase in gamma globulins Reviewed and signed by Renny Anaya MD, PhD 03/29/2024 Blood 03/28/2024 10:2 4 AM PAPER SEALER 03/28/2024 11:49 AM PAPER SEALER Andrzej Wyman MD LAB BLOOD ORDERABLES Fi nal Result Performing Organization Address City/[facility]/ZIP Co de Phone Number [facility] [place] [address] * (ABNORMAL) IgA (03/28/2024 10:24 AM PAPER SEALER) Immunoglobulin A <50(L) 70 - 400 mg/dL Blood 03/28/2024 10:2 4 AM PAPER SEALER 03/28/2024 11:48 AM PAPER SEALER Andrzej Wyman MD LAB BLOOD [place] [address] * IgM (03/28/2024 10:24 AM PAPER SEALER) Immunoglobulin M 77 40 - 230 mg/dL Blood 03/28/2024 10:2 4 AM PAPER SEALER 03/28/2024 11:48 AM PAPER SEALER Andrzej Wyman MD LAB BLOOD ORDERABLES Fi nal Result Performing Organization Address City/[facility]/ZIP Co de Phone Number [facility] Department [place] [address] * (ABNORMAL) IgG (03/28/2024 10:24 AM PAPER SEALER) Immunoglobulin G 1,931(H) 700 - 1,600 mg/dL Blood 03/28/2024 10:2 4 AM PAPER SEALER 03/28/2024 11:48 AM PAPER SEALER Andrzej Wyman MD LAB BLOOD ORDERABLES Fi nal Result [facility] [place] [address] * Comprehensive metabolic panel (03/28/2024 10:24 AM PAPER SEALER) Sodium 140 135 - 145 mmol/L Potassium, pl 4.2 3.3 - 4.9 mmol/L [facility] Chloride 102 97 - 110 mmol/L [facility] CO2 29 22 - 32 mmol/L [facility] Anion gap 9 2 - 15 mmol/L [facility] BUN 23 6 - 25 mg/dL [facility] Creatinine 0.73 0.60 - 1.10 mg/dL [facility] Glucose 85 70 - 199 mg/dL [facility] Comment: Interpretive Data Fasting glucose >/= 126 [...] 2022. Calcium 9.5 8.5 - 10.3 mg/dL [facility] Bilirubin, total 0.4 0.1 - 1.2 mg/dL [facility] Protein, pl 8.3 6.5 - 8.5 g/dL [facility] Albumin 4.5 3.5 - 5.0 g/dL [facility] Alk phos 80 40 - 130 Units/L [facility] ALT 33 7 - 45 Units/L [facility] AST 25 10 - 45 Units/L [facility] Blood 03/28/2024 10:2 4 AM PAPER SEALER 03/28/2024 11:48 AM PAPER SEALER Andrzej Wyman MD LAB BLOOD ORDERABLES Fi nal Result [facility] One [facility] Department [place] [address] * COLONOSCOPY (01/23/2022 10:27 AM PAPER SEALER) Anatomical Region Laterality Modality Other Narrative Procedure Note Ez Agarwal MD - 01/23/2022 10:27 AM CST GI ENDOSCOPY [facility] Patient Name: Ely Wei Procedure Date: 01/23/2022 10:27AM Date of : 1960 Admit Type: Outpatient Age: 61 Gender: Female Attending MD: Ez Agarwal M.D. Room: [facility] ENDOSCOPY ROOM 8 Note Status: Finalized [...] The scope was passed under direct vision.The [id number] endoscope was introduced through the anus and [...] On: 01/23/2022 10:27 AM Recognized by the [employer] for promoting quality in endoscopy Ez Agarwal MD ENDOSCOPY PROCEDURES F inal Result from Last 3 Months or Most Recently Relevant to Health Maintenance Insurance MEDICARE [employer] MEDICARE SUPPLEMENT MEDICARE [employer] CHOICE MEDICARE PPO Advance Directives For more information, please contact: [phone] * Full Code (Latest Code Status on File) Date Activated Date Inactivated Comments 01/23/2022 9:55 AM 01/23/2022 3:41 PM Care Teams Manager Pulmonary Relationship Specialty Start Date End Date Mervin Jay DO PCP - General Internal Medicine 10/21/21
--- OUTSIDE RECORDS SUMMARY | 2024-05-18 10:11 | XMS_ITS | Encounter Summary ---
Author Organization [facility] Address [address] [place] [address] Care Team Providers Care Granite Installer Name Role Phone Jina Banda MD Primary Care Provider Unav ailable Encounter Details Date Type Department Care Team (Late st Contact Info) Description 10/05/2000 Outpatient Historical [facility] Internal Medicine - [facility] [id number] [place] [address] [address] [place] [address] Jina Banda MD NO ADDRESS ON FILE Social History Tobacco Use Types Packs/Day Years Used Date Smoking Tobacco: Never Assessed Comments Unknown Sex and Gender Information Value Date Recorded Sex Assigned at Not on file Legal Sex Female 5:30 AM CHUTE TENDER Gender Identity Not on file Sexual Orientation Not on file documented as of this encounter Plan of Treatment Upcoming Encounters Date Type Department Care Team (Late st Contact Info) Description 09/08/2024 12:00 PM CDT Office Visit [facility] Heart and Vascular At [address] [place] [address] Randal Cooley MD [address] [place] [address] [address] [place] [address] 10/27/2024 10:00 AM CDT Office Visit [facility] Heart and Vascular At [address] [place] [address] Randal Cooley MD [address] [place] [address] [address] [place] [address] 10/28/2024 9:30 AM CDT Office Visit [facility] Urology [facility] [address] [facility] [address] [place] [address] [place] [address] [facility] [address] [facility] [address] [place] [address] documented as of this encounter Visit Diagnoses Not on filedocumented in this encounter Additional Health Concerns Infection Onset Date Last Indicated Resolved Time R/O COVID-19 11/08/2019 11/08/2019 11/11/2019 12:3 1 AM CDT R/O COVID-19 02/01/2020 02/01/2020 02/03/2020 2:00 AM CHUTE TENDER documented as of this encounter Care Teams Granite Installer Relationship Specialty Start Date End Date Jina Banda MD PCP - General Internal Medicine 06/20/16 12/03/21 documented as of this encounter
--- OUTSIDE RECORDS SUMMARY | 2024-05-18 10:11 | XMS_ITS | Encounter Summary ---
Author Organization [facility] Address [address] [place] [address] Care Team Providers Care Rn Medical Surgical Name Role Phone Jina Banda MD Primary Care Provider Unav ailable Encounter Details Date Type Department Care Team (Late st Contact Info) Description 10/30/2000 Outpatient Historical Division of Neurology [address] [place] [address], [address] [address] Crow Coburn MD [address] [place] [address] [address] [place] [id number] Social History Tobacco Use Types Packs/Day Years Used Date Smoking Tobacco: Never Assessed Comments Unknown Sex and Gender Information Value Date Recorded Sex Assigned at Not on file Legal Sex Female 5:30 AM RACK CARRIER Gender Identity Not on file Sexual Orientation Not on file documented as of this encounter Plan of Treatment Upcoming Encounters Date Type Department Care Team (Late Contact Info) Description 09/08/2024 12:00 PM CDT Office Visit [facility] [place] Heart and Vascular At [address] [place] [address] Randal Cooley MD [address] [place] [address] [address] [place] [address] 10/27/2024 10:00 AM CDT Office Visit [facility] [place] Heart and Vascular At [address] [place] [address] Randal Cooley MD [address] [place] [address] [address] [place] [address] 10/28/2024 9:30 AM CDT Office Visit [facility] [place] Urology [facility] [address] [facility] [address] [place] [address] [place] [address] [facility] [address] [place] [address] documented as of this encounter Visit Diagnoses Not on filedocumented in this encounter Additional Health Concerns Infection Onset Date Last Indicated Resolved Time R/O COVID-19 11/08/2019 11/08/2019 11/11/2019 12:3 1 AM CDT R/O COVID-19 02/01/2020 02/01/2020 02/03/2020 2:00 AM RACK CARRIER documented as of this encounter Care Teams Rn Medical Surgical Relationship Specialty Start Date End Date Jina Banda MD PCP - General Internal Medicine 06/20/16 12/03/21 documented as of this encounter
--- OUTSIDE RECORDS SUMMARY | 2024-05-18 10:11 | XMS_ITS | Encounter Summary ---
Author Organization [facility] Address [address] [place] [address] Care Team Providers Care Crushing Mill Operator Name Role Phone Jina Banda MD Primary Care Provider Unav ailable Encounter Details Date Type Department Care Team (Late st Contact Info) Description 07/01/2002 Outpatient Historical [facility] Internal Medicine - [facility] [id number] [place] [address] [address] [place] [address] Jina Banda MD NO ADDRESS ON FILE Social History Tobacco Use Types Packs/Day Years Used Date Smoking Tobacco: Never Assessed Comments Unknown Sex and Gender Information Value Date Recorded Sex Assigned at Not on file Legal Sex Female 5:30 AM PROCESS DEVELOPMENT ASSOCIATE Gender Identity Not on file Sexual Orientation Not on file documented as of this encounter Plan of Treatment Upcoming Encounters Date Type Department Care Team (Late st Contact Info) Description 09/08/2024 12:00 PM CDT Office Visit [facility] Heart and Vascular At [address] [place] [address] Randal Cooley MD [address] [place] [address] [address] [place] [address] 10/27/2024 10:00 AM CDT Office Visit [facility] Heart and Vascular At [address] [place] [address] Randal Cooley MD [address] [place] [address] [address] [place] [address] 10/28/2024 9:30 AM CDT Office Visit [facility] Urology [facility] [address] [facility] [address] [place] [address] [place] [address] [facility] [address] [facility] [address] [place] [address] documented as of this encounter Visit Diagnoses Not on filedocumented in this encounter Additional Health Concerns Infection Onset Date Last Indicated Resolved Time R/O COVID-19 11/08/2019 11/08/2019 11/11/2019 12:3 1 AM CDT R/O COVID-19 02/01/2020 02/01/2020 02/03/2020 2:00 AM PROCESS DEVELOPMENT ASSOCIATE documented as of this encounter Care Teams Crushing Mill Operator Relationship Specialty Start Date End Date Jina Banda MD PCP - General Internal Medicine 06/20/16 12/03/21 documented as of this encounter
--- OUTSIDE RECORDS SUMMARY | 2024-05-18 10:11 | XMS_ITS | Encounter Summary ---
Author Organization [facility] Address [address] [place] [address] Care Team Providers Care Dairy Worker Name Role Phone Jina Banda MD Primary Care Provider Unav ailable Encounter Details Date Type Department Care Team (Late st Contact Info) Description 06/06/1998 Outpatient Historical [facility] Internal Medicine - [facility] [id number] [place] [address] [address] [place] [address] Jina Banda MD NO ADDRESS ON FILE Social History Tobacco Use Types Packs/Day Years Used Date Smoking Tobacco: Never Assessed Comments Unknown Sex and Gender Information Value Date Recorded Sex Assigned at Not on file Legal Sex Female 5:30 AM DECORATING INSTRUCTOR Gender Identity Not on file Sexual Orientation Not on file documented as of this encounter Plan of Treatment Upcoming Encounters Date Type Department Care Team (Late st Contact Info) Description 09/08/2024 12:00 PM CDT Office Visit [facility] Heart and Vascular At [address] [place] [address] Randal Cooley MD [address] [place] [address] [address] [place] [address] 10/27/2024 10:00 AM CDT Office Visit [facility] Heart and Vascular At [address] [place] [address] Randal Cooley MD [address] [place] [address] 2014 [place] [address] 10/28/2024 9:30 AM CDT Office Visit [facility] Urology [facility] [address] [facility] [address] [place] [address] [place] [address] [facility] [address] [facility] [place] [address] [place] [address] documented as of this encounter Visit Diagnoses Not on filedocumented in this encounter Additional Health Concerns Infection Onset Date Last Indicated Resolved Time R/O COVID-19 11/08/2019 11/08/2019 11/11/2019 12:3 1 AM CDT R/O COVID-19 02/01/2020 02/01/2020 02/03/2020 2:00 AM DECORATING INSTRUCTOR documented as of this encounter Care Teams Dairy Worker Relationship Specialty Start Date End Date Jina Banda MD PCP - General Internal Medicine 06/20/16 12/03/21 documented as of this encounter
--- OUTSIDE RECORDS SUMMARY | 2024-05-18 10:11 | XMS_ITS | Encounter Summary ---
Author Organization [facility] Address [address] [place] [address] Care Team Providers Care Team Driver Name Role Phone Jina Banda MD Primary Care Provider Unav ailable Encounter Details Date Type Department Care Team (Latest Contact Info) Description 10/23/2000 Outpatient Historical [facility] Chato Aguilera MD [address] [place] [address] Other screening mammogram (Primary Dx) Social History Tobacco Use Types Packs/Day Years Used Date Smoking Tobacco: Never Assessed Comments Unknown Sex and Gender Information Value Date Recorded Sex Assigned at Not on file Legal Sex Female 5:30 AM SENIOR CLINICAL DATA ANALYST Gender Identity Not on file Sexual Orientation Not on file documented as of this encounter Plan of Treatment Upcoming Encounters Date Type Department Care Team (Late st Contact Info) Description 09/08/2024 12:00 PM CDT Office Visit [facility] Heart and Vascular At [address] [place] [address] Randal Cooley MD [address] [place] [address] 2014 [place] [address] 10/27/2024 10:00 AM CDT Office Visit [facility] Heart and Vascular At [address] [place] [address] Randal Cooley MD [address] [place] [address] 2014 [place] [address] 10/28/2024 9:30 AM CDT Office Visit [facility] Urology [facility] [address] [facility] [address] [place] [address] [place] [address] [facility] [address] [place] [address] documented as of this encounter Visit Diagnoses Diagnosis Other screening mammogram- Primary documented in this encounter Additional Health Concerns Infection Onset Date Last Indicated Resolved Time R/O COVID-19 11/08/2019 11/08/2019 11/11/2019 12:3 1 AM CDT R/O COVID-19 02/01/2020 02/01/2020 02/03/2020 2:00 AM SENIOR CLINICAL DATA ANALYST documented as of this encounter Care Teams Team Driver Relationship Specialty Start Date End Date Jina Banda MD PCP - General Internal Medicine 06/20/16 12/03/21 documented as of this encounter
--- OUTSIDE RECORDS SUMMARY | 2024-05-18 10:11 | XMS_ITS | Encounter Summary ---
Author Organization [facility] Address [address] [place] [address] Care Team Providers Care Screw Machine Hand Name Role Phone Jina Banda MD Primary Care Provider Unav ailable Encounter Details Date Type Department Care Team (Late st Contact Info) Description 05/15/1999 Outpatient Historical [facility] Internal Medicine - [facility] [id number] [place] [address] [address] [place] [address] Jina Banda MD NO ADDRESS ON FILE Social History Tobacco Use Types Packs/Day Years Used Date Smoking Tobacco: Never Assessed Comments Unknown Sex and Gender Information Value Date Recorded Sex Assigned at Not on file Legal Sex Female 5:30 AM SUPERVISOR STENO POOL Gender Identity Not on file Sexual Orientation Not on file documented as of this encounter Plan of Treatment Upcoming Encounters Date Type Department Care Team (Late st Contact Info) Description 09/08/2024 12:00 PM CDT Office Visit [facility] Heart and Vascular At [address] [place] [address] Randal Cooley MD [address] [place] [address] 2014 [place] [address] 10/27/2024 10:00 AM CDT Office Visit [facility] Heart and Vascular At [address] [place] [address] Randal Cooley MD [address] [place] [address] 2014 [place] [address] 10/28/2024 9:30 AM CDT Office Visit [facility] Urology [facility] [address] [place] [address] [place] [address] [place] [address] [facility] [address] [facility] [address] [place] [address] documented as of this encounter Visit Diagnoses Not on filedocumented in this encounter Additional Health Concerns Infection Onset Date Last Indicated Resolved Time R/O COVID-19 11/08/2019 11/08/2019 11/11/2019 12:3 1 AM CDT R/O COVID-19 02/01/2020 02/01/2020 02/03/2020 2:00 AM SUPERVISOR STENO POOL documented as of this encounter Care Teams Screw Machine Hand Relationship Specialty Start Date End Date Jina Banda MD PCP - General Internal Medicine 06/20/16 12/03/21 documented as of this encounter
--- OUTSIDE RECORDS SUMMARY | 2024-05-18 10:11 | XMS_ITS | Patient Health Summary ---
Author Organization [facility] Address [address] [facility] [place] [address] Care Team Providers Care Medical Office Technician Name Role Phone Mervin Jay DO Primary Care Provider [phone] Note from [facility],non-owned Affiliates and Associated Physician Practices is amultiple site organization consisting of ambulatory clinics and hospital sitesin [place], [place], [place] and [place]. This disclosure is being madepursuant to the Care Everywhere program and may not contain all information available regarding this patient. Last updated 17.[facility] Allergies * Amoxicillin(GI Discomfort) * Doxycycline(Headache) * [...] propionate (FLONASE) 50 MCG/ACT nasal spray(Started 09/11/2018) [place] 2 sprays into each nostril once daily [...] AM CDT) Case Report Dermatopathology Report Case: [id number] Authorizing Provider: Jakob Marr MD Collected: 09/25/2020 12:00 AM Ordering Location: [facility] Received: 09/26/2020 01:47 PM Pathologist: [...] determined by the Dermatopathology Laboratory at [facility], directed by Dr. Bruce Varghese. These tests need not be, and therefore are not, approved by the [place] Food and Drug Administration. The tests are used for clinical purposes. Billing Codes Specimen Charges Stain Charges 00625 1 1:17 PM CDT DERMATOPATHOLOGY LABORATORY Embedded Images 1:17 PM CDT DERMATOPATHOLOGY LABORATORY Pathology/Cytolog y TISSUE SPECIMEN FROM SKIN / Unknown 09/25/2020 09/26/2020 1:47 PM CDT Jakob Marr MD LAB - PATHOLOGY/CYTO LOGY ORDERABLES DERMATOPATHOLOGY LABORATORY [facility] - Department of Dermatology [facility] Medicine [address] [place] [address], [address] [phone] * STREP A SCREEN (09/11/2018 3:04 PM CDT) Strep A Rapid POCT Negative Negative Strep A Internal Control Present Lot # [id number] Expiration Date 02/13/2020 Throat ENTIRE THROAT (SURFACE REGION OF NECK) / Unknown 09/11/2018 3:04 PM CDT Ashley Owen EMAIL MARKETER-[facility] LAB - POIN T OF CARE ORDERABLES Care Teams Medical Office Technician Relationship Specialty Start Date End Date Mervin Jay DO PCP - General 09/26/20
--- OUTSIDE RECORDS SUMMARY | 2024-05-18 10:11 | XMS_ITS | Encounter Summary ---
Author Organization [facility] Address [address] [place] [address] Care Team Providers Care Machinery Dismantler Name Role Phone Jina Banda MD Primary Care Provider Unav ailable Encounter Details Date Type Department Care Team (Late st Contact Info) Description 04/25/2004 Outpatient Historical [facility] Internal Medicine - [facility] [phone] [place] [address] [address] [place] [address] Jina Banda MD NO ADDRESS ON FILE Social History Tobacco Use Types Packs/Day Years Used Date Smoking Tobacco: Never Assessed Comments Unknown Sex and Gender Information Value Date Recorded Sex Assigned at Not on file Legal Sex Female 5:30 AM DESIGN ENGINEERING MANAGER Gender Identity Not on file Sexual Orientation Not on file documented as of this encounter Plan of Treatment Upcoming Encounters Date Type Department Care Team (Late st Contact Info) Description 09/08/2024 12:00 PM CDT Office Visit [facility] Heart and Vascular At [address] [place] [address] Randal Cooley MD [address] [place] [address] [address] [place] [address] 10/27/2024 10:00 AM CDT Office Visit [facility] Heart and Vascular At [address] [place] [address] Randal Cooley MD [address] [place] [address] 2014 [place] [address] 10/28/2024 9:30 AM CDT Office Visit [facility] Urology [facility] [address] [facility] [address] [place] [address] [place] [address] [facility] [address] [facility] [address] [place] [address] documented as of this encounter Visit Diagnoses Not on filedocumented in this encounter Additional Health Concerns Infection Onset Date Last Indicated Resolved Time R/O COVID-19 11/08/2019 11/08/2019 11/11/2019 12:3 1 AM CDT R/O COVID-19 02/01/2020 02/01/2020 02/03/2020 2:00 AM DESIGN ENGINEERING MANAGER documented as of this encounter Care Teams Machinery Dismantler Relationship Specialty Start Date End Date Jina Banda MD PCP - General Internal Medicine 06/20/16 12/03/21 documented as of this encounter
--- OUTSIDE RECORDS SUMMARY | 2024-05-18 10:11 | XMS_ITS | Encounter Summary ---
Author Organization [facility] Address [address] [place] [address] Care Team Providers Care Asbestos Removal Worker Name Role Phone Jina Banda MD Primary Care Provider Unav ailable Encounter Details Date Type Department Care Team (Late st Contact Info) Description 10/14/2001 Outpatient Historical [facility] Internal Medicine - [facility] [id number] [place] [address] [address] [place] [address] Jina Banda MD NO ADDRESS ON FILE Social History Tobacco Use Types Packs/Day Years Used Date Smoking Tobacco: Never Assessed Comments Unknown Sex and Gender Information Value Date Recorded Sex Assigned at Not on file Legal Sex Female 5:30 AM PREPARER Gender Identity Not on file Sexual Orientation Not on file documented as of this encounter Plan of Treatment Upcoming Encounters Date Type Department Care Team (Late st Contact Info) Description 09/08/2024 12:00 PM CDT Office Visit [facility] Heart and Vascular At [address] [place] [address] Randal Cooley MD [address] [place] [address] 2014 [place] [address] 10/27/2024 10:00 AM CDT Office Visit [facility] Heart and Vascular At [address] [place] [address] Randal Cooley MD [address] [place] [address] 2014 [place] [address] 10/28/2024 9:30 AM CDT Office Visit [facility] Urology [facility] [address] [facility] [address] [place] [address] [place] [address] [facility] [address] [facility] [address] [place] [address] documented as of this encounter Visit Diagnoses Not on filedocumented in this encounter Additional Health Concerns Infection Onset Date Last Indicated Resolved Time R/O COVID-19 11/08/2019 11/08/2019 11/11/2019 12:3 1 AM CDT R/O COVID-19 02/01/2020 02/01/2020 02/03/2020 2:00 AM PREPARER documented as of this encounter Care Teams Asbestos Removal Worker Relationship Specialty Start Date End Date Jina Banda MD PCP - General Internal Medicine 06/20/16 12/03/21 documented as of this encounter
--- OUTSIDE RECORDS SUMMARY | 2024-05-18 10:11 | XMS_ITS | Encounter Summary ---
Author Organization [facility] Address [address] [facility] Attn: [place] [address] Care Team Providers Care Engraving Operator Name Role Phone Jina Banda MD Primary Care Provider Unav ailable Encounter Details Date Type Department Care Team (Late st Contact Info) Description 04/08/1989 Outpatient Historical Sahil Tsang MD [address] [place] [address] Social History Tobacco Use Types Packs/Day Years Used Date Smoking Tobacco: Never Assessed Comments Unknown Sex and Gender Information Value Date Recorded Sex Assigned at Not on file Legal Sex Female 5:30 AM DIRECTOR CLINICAL PHARMACOLOGY Gender Identity Not on file Sexual Orientation Not on file documented as of this encounter Plan of Treatment Upcoming Encounters Date Type Department Care Team (Late st Contact Info) Description 09/08/2024 12:00 PM CDT Office Visit [facility] Heart and Vascular At [address] [place] [address] Randal Cooley MD [address] [place] [address] 2014 [place] [address] 10/27/2024 10:00 AM CDT Office Visit [facility] Heart and Vascular At [address] [place] [address] Randal Cooley MD [address] [place] [address] 2014 [place] [address] 10/28/2024 9:30 AM CDT Office Visit [facility] Urology [facility] [address] [facility] [address] [place] [address] [place] [address] [facility] [address] [place] [address] documented as of this encounter Visit Diagnoses Not on filedocumented in this encounter Additional Health Concerns Infection Onset Date Last Indicated Resolved Time R/O COVID-19 11/08/2019 11/08/2019 11/11/2019 12:3 1 AM CDT R/O COVID-19 02/01/2020 02/01/2020 02/03/2020 2:00 AM DIRECTOR CLINICAL PHARMACOLOGY documented as of this encounter Care Teams Engraving Operator Relationship Specialty Start Date End Date Jina Banda MD PCP - General Internal Medicine 06/20/16 12/03/21 documented as of this encounter
--- OUTSIDE RECORDS SUMMARY | 2024-05-18 10:11 | XMS_ITS | Encounter Summary ---
Author Organization [facility] Address [address] [place] [address] Care Team Providers Care Manager Field Services Name Role Phone Jina Banda MD Primary Care Provider Unav ailable Encounter Details Date Type Department Care Team (Late st Contact Info) Description 09/22/2000 Outpatient Historical [facility] Internal Medicine - [facility] [id number] [place] [address] [address] [place] [address] Jina Banda MD NO ADDRESS ON FILE Social History Tobacco Use Types Packs/Day Years Used Date Smoking Tobacco: Never Assessed Comments Unknown Sex and Gender Information Value Date Recorded Sex Assigned at Not on file Legal Sex Female 5:30 AM SUPPORT GROUP MANAGER Gender Identity Not on file Sexual Orientation Not on file documented as of this encounter Plan of Treatment Upcoming Encounters Date Type Department Care Team (Late st Contact Info) Description 09/08/2024 12:00 PM CDT Office Visit [facility] Heart and Vascular At [address] [place] [address] Randal Cooley MD [address] [place] [address] [address] [place] [address] 10/27/2024 10:00 AM CDT Office Visit [facility] Heart and Vascular At [address] [place] [address] Randal Cooley MD [address] [place] [address] 2014 [place] [address] 10/28/2024 9:30 AM CDT Office Visit [facility] Urology [facility] [address] [facility] [address] [place] [address] [place] [address] [facility] [address] [facility] [address] [place] [address] documented as of this encounter Visit Diagnoses Not on filedocumented in this encounter Additional Health Concerns Infection Onset Date Last Indicated Resolved Time R/O COVID-19 11/08/2019 11/08/2019 11/11/2019 12:3 1 AM CDT R/O COVID-19 02/01/2020 02/01/2020 02/03/2020 2:00 AM SUPPORT GROUP MANAGER documented as of this encounter Care Teams Manager Field Services Relationship Specialty Start Date End Date Jina Banda MD PCP - General Internal Medicine 06/20/16 12/03/21 documented as of this encounter
--- OUTSIDE RECORDS SUMMARY | 2024-05-18 10:11 | XMS_ITS | Referral Summary ---
Author Organization [facility] Address [address] [place] [address] Care Team Providers Care Customer Care Coordinator Name Role Phone Mervin Jay DO Primary Care Provider [phone] Source Comments [facility],non-owned Affiliates and Associated Physician Practices is amultiple site organization consisting of ambulatory clinics and hospital sitesin [place], [place], [place] and [place]. This disclosure is being madepursuant to the Care Everywhere program and may not contain all information available regarding this patient. Last updated 17.[facility] Allergies Active Allergy Reactions Criticality Noted Date [...] MCG/ACT nasal sprayIndications:Acu te pharyngitis, unspecified etiology [place] 2 sprays into each nostril once daily [...] of Treatment Not on file Care Teams Customer Care Coordinator Relationship Specialty Start Date End Date Mervin Jay DO PCP - General 09/26/20
--- OUTSIDE RECORDS SUMMARY | 2024-05-18 10:12 | XMS_ITS | Encounter Summary ---
Author Organization [facility] Address [address] [place] [address] Care Team Providers Care Chief Airline Radio Operator Name Role Phone Jina Banda MD Primary Care Provider Unav ailable Encounter Details Date Type Department Care Team (Latest Contact Info) Description 04/14/2005 Inpatient Historical HIS PATIENT IN A BED Jack Thompson MD [address] [phone] Jill Moran MD [address] [address] INFLUENZA WITH PNEUMONIA (Primary Dx) Social History Tobacco Use Types Packs/Day Years Used Date Smoking Tobacco: Never Assessed Comments Unknown Sex and Gender Information Value Date Recorded Sex Assigned at Not on file Legal Sex Female 5:30 AM TRAFFIC CHECKER Gender Identity Not on file Sexual Orientation Not on file documented as of this encounter Plan of Treatment Upcoming Encounters Date Type Department Care Team (Late st Contact Info) Description 09/08/2024 12:00 PM CDT Office Visit [facility] At [address] [place] [address] Randal Cooley MD [address] [place] [address] 2014 [place] [address] 10/27/2024 10:00 AM CDT Office Visit [facility] At [address] [place] [address] Randal Cooley MD 625 [facility] 2014 [place] [address] 10/28/2024 9:30 AM CDT Office Visit [facility] U[facility] [address] [facility] [address] [place] [phone] [place] [address] [facility] 260 [place] [address] documented as of this encounter Procedures Procedure Name Priority Date/Time Associated Diagnosis Comments URINALYSIS WITH REFLEX CULTURE Routine 04/15/2005 8:55 AM TRAFFIC CHECKER URINALYSIS W/REFLEX MICROSCOPIC Routine 04/15/2005 8:55 AM TRAFFIC CHECKER MONONUCLEOSIS SCREEN Routine 04/14/2005 8:50 PM TRAFFIC CHECKER URINALYSIS WITH REFLEX CULTURE Routine 04/14/2005 7:01 PM TRAFFIC CHECKER URINALYSIS W/REFLEX MICROSCOPIC Routine 04/14/2005 7:01 PM TRAFFIC CHECKER CBC WITH DIFFERENTIAL Routine 04/14/2005 5:25 PM TRAFFIC CHECKER CBC WITH DIFFERENTIAL Routine 04/14/2005 5:25 PM TRAFFIC CHECKER TSH Routine 04/14/2005 5:25 PM TRAFFIC CHECKER COMPREHENSIVE METABOLIC PANEL Routine 04/14/2005 5:25 PM TRAFFIC CHECKER documented in this encounter Results * (ABNORMAL) URINALYSIS (04/15/2005 8:55 AM TRAFFIC CHECKER) COLOR UA Colorless INTERFACE SYSTEM CLARITY UA [...] 2-5 /HPF INTERFACE SYSTEM 04/15/2005 8:55 AM TRAFFIC CHECKER Jill Moran MD URINE ORDERABLES Final Result Performing Organization Address [facility] Phone Number INTERFACE SYSTEM Refer to clinic/hospital department * URINALYSIS WITH REFLEX CULTURE (04/15/2005 8:55 AM TRAFFIC CHECKER) URINE CULTURE ORDER Culture ordered INTERFACE SYSTEM Comment: Criteria for a reflex culture include one or more of the following: Abn ormal nitrite, leukocyte esterase, WBCs or RBCs. Lack of qualifying criteria does not exclude the possiblity of a urinary tract infection. Dilute urine, drug interference, etc. may decrease the sensitivity of the criteria analytes. 04/15/2005 8:55 AM TRAFFIC CHECKER Jill Moran MD URINE ORDERABLES Final Result Performing Organization Address [facility] Phone Number INTERFACE SYSTEM Refer to clinic/hospital department * MONONUCLEOSIS SCREEN (04/14/2005 8:50 PM TRAFFIC CHECKER) MONONUCLEOSIS SCREEN Negative Negative INTERFACE SYSTEM 04/14/2005 8:50 PM TRAFFIC CHECKER Jill Moran MD HEMATOLOGY ORDERABLES Final Re sult Performing Organization Address [facility] Phone Number INTERFACE SYSTEM Refer to clinic/hospital department * URINALYSIS (04/14/2005 7:01 PM TRAFFIC CHECKER) COLOR UA Yellow INTERFACE SYSTEM CLARITY UA [...] Negative Negative INTERFACE SYSTEM 04/14/2005 7:01 PM TRAFFIC CHECKER Jina Banda MD URINE ORDERABLES Final Resu lt Performing Organization Address [facility] Phone Number INTERFACE SYSTEM Refer to clinic/hospital department * URINALYSIS WITH REFLEX CULTURE (04/14/2005 7:01 PM TRAFFIC CHECKER) URINE CULTURE ORDER Not indicated INTERFACE SYSTEM Comment: Criteria for a reflex culture include one or more of the following: Abn ormal nitrite, leukocyte esterase, WBCs or RBCs. Lack of qualifying criteria does not exclude the possiblity of a urinary tract infection. Dilute urine, drug interference, etc. may decrease the sensitivity of the criteria analytes. 04/14/2005 7:01 PM TRAFFIC CHECKER Jina Banda MD URINE ORDERABLES Final Resu lt Performing Organization Address [facility] Phone Number INTERFACE SYSTEM Refer to clinic/hospital department * CBC WITH DIFFERENTIAL (04/14/2005 5:25 PM TRAFFIC CHECKER) NEUTROPHILS 69 45 - 70 % INTERFAC [...] 0.20 K/uL INTERFACE SYSTEM 04/14/2005 5:25 PM TRAFFIC CHECKER Mervin Butcher DO HEMATOLOGY ORDERABLES Final R esult Performing Organization Address [facility] Phone Number INTERFACE SYSTEM Refer to clinic/hospital department * (ABNORMAL) CBC WITH DIFFERENTIAL (04/14/2005 5:25 PM TRAFFIC CHECKER) WBC 3.5(L) 4.0 - 9.8 K/uL INTERFACE [...] 12.4 fL INTERFACE SYSTEM 04/14/2005 5:25 PM TRAFFIC CHECKER Mervin Butcher DO HEMATOLOGY ORDERABLES Final R esult Performing Organization Address [facility] Phone Number INTERFACE SYSTEM Refer to clinic/hospital department * TSH (04/14/2005 5:25 PM TRAFFIC CHECKER) Pathologist [facility] TSH 0.45 0.27 - 4.20 uU/mL INTERFACE SYSTEM 04/14/2005 5:25 PM TRAFFIC CHECKER Mervin Butcher DO CHEMISTRY ORDERABLES Final Re sult Performing Organization Address [facility] Phone Number INTERFACE SYSTEM Refer to clinic/hospital department * (ABNORMAL) COMPREHENSIVE METABOLIC PANEL (04/14/2005 5:25 PM TRAFFIC CHECKER) GLUCOSE 102 65 - 109 mg/dL INTERFACE [...] 30 mmol/L INTERFACE SYSTEM 04/14/2005 5:25 PM TRAFFIC CHECKER Mervin Butcher DO CHEMISTRY ORDERABLES Final Re sult INTERFACE SYSTEM Refer to clinic/hospital department documented in this encounter Visit Diagnoses Diagnosis Influenza with pneumonia- Primary documented in this encounter Additional Health Concerns Infection Onset Date Last Indicated Resolved Time R/O COVID-19 11/08/2019 11/08/2019 11/11/2019 12:3 1 AM CDT R/O COVID-19 02/01/2020 02/01/2020 02/03/2020 2:00 AM TRAFFIC CHECKER documented as of this encounter Care Teams Chief Airline Radio Operator Relationship Specialty Start Date End Date Jina Banda MD PCP - General Internal Medicine 06/20/16 12/03/21 documented as of this encounter
--- OUTSIDE RECORDS SUMMARY | 2024-05-18 10:12 | XMS_ITS | Encounter Summary ---
Author Organization [facility] Address [address] [place] [address] Care Team Providers Care Green Building Materials Designer Name Role Phone Jina Banda MD Primary [...] on file Legal Sex Female 5:30 AM HAND CULTIVATOR Gender Identity Not on file Sexual Orientation Not on file documented as of this encounter Plan of Treatment Upcoming Encounters Date Type Department Care Team (Late st Contact Info) Description 09/08/2024 12:00 PM CDT Office Visit [facility] Heart and Vascular At [address] 2014 [place] [address] Randal Cooley MD [address] [place] [address] 2014 [place] [address] 10/27/2024 10:00 AM CDT Office Visit [facility] Heart and Vascular At [address] [place] [address] Randal Cooley MD [address] [place] [address] 2014 [place] [address] 10/28/2024 9:30 AM CDT Office Visit [facility] [address] [place] [address] [place] [address] [facility] 260 [place] [address] documented as of this encounter Visit Diagnoses Diagnosis Unspecified hypothyroidism documented in this encounter Additional Health Concerns Infection Onset Date Last Indicated Resolved Time R/O COVID-19 11/08/2019 11/08/2019 11/11/2019 12:3 1 AM CDT R/O COVID-19 02/01/2020 02/01/2020 02/03/2020 2:00 AM HAND CULTIVATOR documented as of this encounter Care Teams Green Building Materials Designer Relationship Specialty Start Date End Date Jina Banda MD PCP - General Internal Medicine 06/20/16 12/03/21 documented as of this encounter
--- OUTSIDE RECORDS SUMMARY | 2024-05-18 10:12 | XMS_ITS | Encounter Summary ---
Author Organization [facility] Address [address] [place] [address] Care Team Providers Care Regulatory Affairs Manager Name Role Phone Jina Banda MD Primary Care Provider Unav ailable Encounter Details Date Type Department Care Team (Late st Contact Info) Description 06/16/2006 Outpatient Historical [facility] Internal Medicine - [facility] [id number] [place] [address] [address] [place] [address] Jina Banda MD NO ADDRESS ON FILE Social History Tobacco Use Types Packs/Day Years Used Date Smoking Tobacco: Never Assessed Comments Unknown Sex and Gender Information Value Date Recorded Sex Assigned at Not on file Legal Sex Female 5:30 AM MEDICARE NURSE Gender Identity Not on file Sexual [...] PM CDT Office Visit [facility] Heart and Vascular At [address] [place] [address] Randal Cooley MD [address] [place] [address] 2014 [place] [address] 10/27/2024 10:00 AM CDT Office Visit [facility] Heart and Vascular At [facility] [address] [facility] [address] [place] [address] Randal Cooley MD 625 [facility] [address] [place] [address] 10/28/2024 9:30 AM CDT Office Visit [facility] Urology [facility] [address] [facility] 260 [place] [address] [place] [address] [facility] 260 [place] [address] documented as of this encounter Visit Diagnoses Not on filedocumented in this encounter Additional Health Concerns Infection Onset Date Last Indicated Resolved Time R/O COVID-19 11/08/2019 11/08/2019 11/11/2019 12:3 1 AM CDT R/O COVID-19 02/01/2020 02/01/2020 02/03/2020 2:00 AM MEDICARE NURSE documented as of this encounter Care Teams Regulatory Affairs Manager Relationship Specialty Start Date End Date Jina Banda MD PCP - General Internal Medicine 06/20/16 12/03/21 documented as of this encounter
--- OUTSIDE RECORDS SUMMARY | 2024-05-18 10:12 | XMS_ITS | Encounter Summary ---
Author Organization [facility] Address [address] [place] [address] Care Team Providers Care Closing Specialist Name Role Phone Jnia Banda MD Primary Care Provider Unav ailable Encounter Details Date Type Department Care Team (Late st Contact Info) Description 02/25/2006 Orders Only [facility] Internal Medicine - [facility] [address] [address] [facility] [address] [place] [address] Jina Banda MD NO ADDRESS ON FILE Social History Tobacco Use Types Packs/Day Years Used Date Smoking Tobacco: Never Assessed Comments Unknown Sex and Gender Information Value Date Recorded Sex Assigned at Not on file Legal Sex Female 5:30 AM INSTRUCTOR WARPER Gender Identity Not on file Sexual Orientation [...] loss. Is not followed by [facility]. Saw clinical rn and had normal exam. ENT: No hearing [...] tightening. ASSESSMENT/PLAN: 244.9-HYPOTHYROIDISM LAB ORDERS: Order number: [id number] Test Ordered: LIPID PANEL 7600 Order number: [id number] Test Ordered: TSH 899 Order number: [id number] Test Ordered: GLUCOSE 483 280.9-IRON DEFICIENCY ANEMIA LAB ORDERS: Order number: [id number] Test Ordered: CBC (INCLUDES DIFF/PLT) 6399 719.45-PAIN JOINT HIP ASSESSMENT: Likely more of bursitis. If does not resolve, refer to orthopedist. LAB ORDERS: Order number: [id number] Test Ordered: XRAY HIP LEFT V70.0-ROUTINE GENERAL MEDICAL EXAMINATION V06.5-NEED FOR VACC TETANUS-DIPHTHERIA (TD) LAB ORDERS: Order number: [id number] Test Ordered: INJ-TETANUS AND DIPTHERIA TOXOID 25183 HEALTH MAINTENANCE: LAST PAP DATE: . LAST MAMMOGRAM DATE: . LAST TD: today PREVENTIVE COUNSELING The patient was counseled regarding regular self- examination of the breasts on a monthly basis, regular sustained exercise for at least 30 minutes 3-4 times per week, adult immunizations, routine screening interval for mammogram as recommended by the [place] [employer] and ACOG, importance of regular [...] [facility] [place] At [address] [place] [address] Randal Cooley MD [address] [place] [address] 2014 [place] [address] 10/27/2024 10:00 AM CDT Office Visit [facility] [place] Heart and Vascular At [address] [place] [address] Randal Cooley MD [address] [place] [address] 2014 [place] [address] 10/28/2024 9:30 AM CDT Office Visit [facility] [place] [address] [facility] [address] [place] [address] [place] [address] [place] [address] documented as of this encounter Visit Diagnoses Not on filedocumented in this encounter Additional Health Concerns Infection Onset Date Last Indicated Resolved Time R/O COVID-19 11/08/2019 11/08/2019 11/11/2019 12:3 1 AM CDT R/O COVID-19 02/01/2020 02/01/2020 02/03/2020 2:00 AM INSTRUCTOR WARPER documented as of this encounter Care Teams Closing Specialist Relationship Specialty Start Date End Date Jina Banda MD PCP - General Internal Medicine 06/20/16 12/03/21 documented as of this encounter
--- OUTSIDE RECORDS SUMMARY | 2024-05-18 10:12 | XMS_ITS | Encounter Summary ---
Author Organization [facility] Address [address] [place] [address] Care Team Providers Care Information Security Risk Analyst Name Role Phone Jina Banda MD Primary Care Provider Unav ailable Encounter Details Date Type Department Care Team (Late st Contact Info) Description 03/19/2007 Outpatient Historical [facility] [address] [place] [address] Malcolm You MD [address] [place] [address] [address] [place] [address] Social History Tobacco Use Types Packs/Day Years Used Date Smoking Tobacco: Never Assessed Comments Unknown Sex and Gender Information Value Date Recorded Sex Assigned at Not on file Legal Sex Female 5:30 AM JOB CHANGE CREW MEMBER Gender Identity Not on file Sexual Orientation Not on file documented as of this encounter Plan of Treatment Upcoming Encounters Date Type Department Care Team (Late Contact Info) Description 09/08/2024 12:00 PM CDT Office Visit [facility] Heart and Vascular At [address] [place] [address] Randal Cooley MD [address] [place] [address] 2014 [place] [address] 10/27/2024 10:00 AM CDT Office Visit [facility] Heart and Vascular At [address] [place] [address] Randal Cooley MD [address] [place] [address] 2014 [place] [address] 10/28/2024 9:30 AM CDT Office Visit [facility] Urology [facility] [address] [facility] [address] [place] [address] [place] [address] [facility] 260 [place] [address] documented as of this encounter Visit Diagnoses Not on filedocumented in this encounter Additional Health Concerns Infection Onset Date Last Indicated Resolved Time R/O COVID-19 11/08/2019 11/08/2019 11/11/2019 12:3 1 AM CDT R/O COVID-19 02/01/2020 02/01/2020 02/03/2020 2:00 AM JOB CHANGE CREW MEMBER documented as of this encounter Care Teams Information Security Risk Analyst Relationship Specialty Start Date End Date Jina Banda MD PCP - General Internal Medicine 06/20/16 12/03/21 documented as of this encounter
--- OUTSIDE RECORDS SUMMARY | 2024-05-18 10:12 | XMS_ITS | Encounter Summary ---
Author Organization [facility] Address [address] [place] [address] Care Team Providers Care Environmental Engineer Name Role Phone Jina Banda MD Primary Care Provider Unav ailable Encounter Details Date Type Department Care Team (Late st Contact Info) Description 03/23/2006 Orders Only [facility] Internal Medicine - [facility] [address] [address] [facility] [address] [place] [address] Jina Banda MD NO ADDRESS ON FILE Social History Tobacco Use Types Packs/Day Years Used Date Smoking Tobacco: Never Assessed Comments Unknown Sex and Gender Information Value Date Recorded Sex Assigned at Not on file Legal Sex Female 5:30 AM MACHINE CLOTH EXAMINER Gender Identity Not on file Sexual Orientation Not on file documented as of this encounter Progress Notes * Jina Banda MD - 08/10/2007 10:20 AM CDT TIME:10:06 am PATIENT`S HOME PHONE: PATIENT`S WORK PHONE: PATIENT`S INSURANCE: [facility] WHO TOOK THE CALL: Tiera March C GENERAL INFORMATION WHO CALLED: Pharmacy called. fax PHARMACY NUMBER: [phone] SECTION 1: REQUESTED ACTION nedra 03/23/06 at [...] [facility] Heart and Vascular At [address] [place] [address] Randal Cooley MD [address] [place] [address] 2014 [place] [address] 10/27/2024 10:00 AM CDT Office Visit [facility] Heart and Vascular At [address] [place] [address] Randal Cooley MD [address] [place] [address] 2014 [place] [address] 10/28/2024 9:30 AM CDT Office Visit [facility] Urology [facility] [address] [phone] [place] [address] [address] documented as of this encounter Visit Diagnoses Not on filedocumented in this encounter Additional Health Concerns Infection Onset Date Last Indicated Resolved Time R/O COVID-19 11/08/2019 11/08/2019 11/11/2019 12:3 1 AM CDT R/O COVID-19 02/01/2020 02/01/2020 02/03/2020 2:00 AM MACHINE CLOTH EXAMINER documented as of this encounter Care Teams Environmental Engineer Relationship Specialty Start Date End Date Jina Banda MD PCP - General Internal Medicine 06/20/16 12/03/21 documented as of this encounter
--- OUTSIDE RECORDS SUMMARY | 2024-05-18 10:12 | XMS_ITS | Encounter Summary ---
Author Organization [facility] Address [address] [place] [address] Care Team Providers Care Engine Research Engineer Name Role Phone Jina Banda MD Primary Care Provider Unav ailable Encounter Details Date Type Department Care Team (Late st Contact Info) Description 03/03/2006 Orders Only [facility] Internal Medicine - [facility] [address] [address] [facility] [address] [place] [address] Tarah Cardenas, ANP [address] [facility] [address] [place] [address] Social History Tobacco Use Types Packs/Day Years Used Date Smoking Tobacco: Never Assessed Comments Unknown Sex and Gender Information Value Date Recorded Sex Assigned at Not on file Legal Sex Female 5:30 AM DATA PROCESSING AUDITOR Gender Identity Not on file Sexual Orientation Not on file documented as of this encounter Progress Notes * Tarah Cardenas, JERZY - 12/29/2007 4:12 AM CDT TIME:03:54 pm PATIENT`S HOME PHONE: PATIENT`S WORK PHONE: PATIENT`S INSURANCE: [facility] [employer] [facility] WHO TOOK THE CALL: Nohemy Hernandez M GENERAL INFORMATION ALTERNATIVE PHONE NUMBER: [phone] SECTION 1: REQUESTED ACTION thor 03/03/06 at [...] Description 09/08/2024 12:00 PM CDT Office Visit [facility] Heart and Vascular At [address] [place] [address] Randal Cooley MD [address] [place] [address] 2014 [place] [address] 10/27/2024 10:00 AM CDT Office Visit [facility] Heart and Vascular At [address] [place] [address] Randal Cooley MD [address] [place] [address] 2014 [place] [address] 10/28/2024 9:30 AM CDT Office Visit [facility] Urology [facility] [address] [facility] [address] [place] [address] [place] [address] [facility] 260 [place] [address] documented as of this encounter Visit Diagnoses Not on filedocumented in this encounter Additional Health Concerns Infection Onset Date Last Indicated Resolved Time R/O COVID-19 11/08/2019 11/08/2019 11/11/2019 12:3 1 AM CDT R/O COVID-19 02/01/2020 02/01/2020 02/03/2020 2:00 AM DATA PROCESSING AUDITOR documented as of this encounter Care Teams Engine Research Engineer Relationship Specialty Start Date End Date Jina Banda MD PCP - General Internal Medicine 06/20/16 12/03/21 documented as of this encounter
--- OUTSIDE RECORDS SUMMARY | 2024-05-18 10:12 | XMS_ITS | Encounter Summary ---
Author Organization [facility] Address [address] [place] [address] Care Team Providers Care Information Specialist Name Role Phone Jina Banda MD Primary Care Provider Unav ailable Encounter Details Date Type Department Care Team (Late st Contact Info) Description 02/12/2005 Outpatient Historical [facility] Internal Medicine - [facility] [address] [place] [address] [address] [place] [address] Jina Banda MD NO ADDRESS ON FILE Social History Tobacco Use Types Packs/Day Years Used Date Smoking Tobacco: Never Assessed Comments Unknown Sex and Gender Information Value Date Recorded Sex Assigned at Not on file Legal Sex Female 5:30 AM WARHEAD MAINTENANCE SPECIALIST Gender Identity Not on file Sexual Orientation Not on file documented as of this encounter Last Filed Vital Signs Vital Sign Reading Time Taken Comments Blood Pressure 114/60 02/12/2005 2:00 PM WARHEAD MAINTENANCE SPECIALIST Pulse 80 02/12/2005 2:00 PM WARHEAD MAINTENANCE SPECIALIST Temperature 37.1 C (98.8 F) 02/12/2005 2:00 PM WARHEAD MAINTENANCE SPECIALIST Respiratory Rate - - Oxygen Saturation - - Inhaled Oxygen Concentration - - Weight 63.5 kg (140 lb) 02/12/2005 2:00 PM WARHEAD MAINTENANCE SPECIALIST Height - - Body Mass Index - - documented in this encounter Plan of Treatment Upcoming Encounters Date Type Department Care Team (Late st Contact Info) Description 09/08/2024 12:00 PM CDT Office Visit [facility] Heart and Vascular At [address] [place] [address] Randal Cooley MD [address] [place] [address] 2014 [place] [address] 10/27/2024 10:00 AM CDT Office Visit [facility] Heart and Vascular At [address] [place] [address] Randal Cooley MD [address] [place] [address] 2014 [place] [address] 10/28/2024 9:30 AM CDT Office Visit [facility] Urology [facility] [address] [place] [address] [place] [address] [facility] [address] [place] [address] documented as of this encounter Visit Diagnoses Not on filedocumented in this encounter Additional Health Concerns Infection Onset Date Last Indicated Resolved Time R/O COVID-19 11/08/2019 11/08/2019 11/11/2019 12:3 1 AM CDT R/O COVID-19 02/01/2020 02/01/2020 02/03/2020 2:00 AM WARHEAD MAINTENANCE SPECIALIST documented as of this encounter Care Teams Information Specialist Relationship Specialty Start Date End Date Jina Banda MD PCP - General Internal Medicine 06/20/16 12/03/21 documented as of this encounter
--- OUTSIDE RECORDS SUMMARY | 2024-05-18 10:12 | XMS_ITS | Encounter Summary ---
Author Organization [facility] Address [address] [place] [address] Care Team Providers Care Project Management Manager Name Role Phone Jina Banda MD [...] on file Legal Sex Female 5:30 AM SANDBLASTER SUPERVISOR Gender Identity Not on file Sexual Orientation Not on file documented as of this encounter Plan of Treatment Upcoming Encounters Date Type Department Care Team (Late st Contact Info) Description 09/08/2024 12:00 PM CDT Office Visit [facility] Heart and Vascular At [address] [place] [address] Randal Cooley MD [address] [place] [address] 2014 [place] [address] 10/27/2024 10:00 AM CDT Office Visit [facility] Heart and Vascular At [address] [place] [address] Randal Cooley MD [address] [place] [address] 2014 [place] [address] 10/28/2024 9:30 AM CDT Office Visit [facility] Urology [address] [place] [address] [place] [address] [facility] 260 [place] [address] documented as of this encounter Visit Diagnoses Diagnosis Acute maxillary sinusitis- Primary documented in this encounter Additional Health Concerns Infection Onset Date Last Indicated Resolved Time R/O COVID-19 11/08/2019 11/08/2019 11/11/2019 12:3 1 AM CDT R/O COVID-19 02/01/2020 02/01/2020 02/03/2020 2:00 AM SANDBLASTER SUPERVISOR documented as of this encounter Care Teams Project Management Manager Relationship Specialty Start Date End Date Jina Banda MD PCP - General Internal Medicine 06/20/16 12/03/21 documented as of this encounter
--- OUTSIDE RECORDS SUMMARY | 2024-05-18 10:12 | XMS_ITS | Encounter Summary ---
Author Organization [facility] Address [address] [place] [address] Care Team Providers Care Cath Lab Name Role Phone Jina Banda MD Primary Care Provider Unav ailable Encounter Details Date Type Department Care Team (Late st Contact Info) Description 01/22/2006 Outpatient Historical [facility] Charo Haynes [address] [facility] [address] [place] [address] Other Screening Mammogram (Primary Dx) Social History Tobacco Use Types Packs/Day Years Used Date Smoking Tobacco: Never Assessed Comments Unknown Sex and Gender Information Value Date Recorded Sex Assigned at Not on file Legal Sex Female 5:30 AM ROLL GRINDER OPERATOR Gender Identity Not on file Sexual Orientation Not on file documented as of this encounter Plan of Treatment Upcoming Encounters Date Type Department Care Team (Late st Contact Info) Description 09/08/2024 12:00 PM CDT Office Visit [facility] Heart and Vascular At [address] [place] [address] Randal Cooley MD [address] [place] [address] 2014 [place] [address] 10/27/2024 10:00 AM CDT Office Visit [facility] Heart and Vascular At [address] [place] [address] Randal Cooley MD [address] [place] [address] 2014 [place] [address] 10/28/2024 9:30 AM CDT Office Visit [facility] Urology [facility] [address] [facility] 260 [place] [address] [place] [address] [facility] 260 [place] [address] documented as of this encounter Visit Diagnoses Diagnosis Other screening mammogram- Primary documented in this encounter Additional Health Concerns Infection Onset Date Last Indicated Resolved Time R/O COVID-19 11/08/2019 11/08/2019 11/11/2019 12:3 1 AM CDT R/O COVID-19 02/01/2020 02/01/2020 02/03/2020 2:00 AM ROLL GRINDER OPERATOR documented as of this encounter Care Teams Cath Lab Relationship Specialty Start Date End Date Jina Banda MD PCP - General Internal Medicine 06/20/16 12/03/21 documented as of this encounter
--- OUTSIDE RECORDS SUMMARY | 2024-05-18 10:12 | XMS_ITS | Encounter Summary ---
Author Organization [facility] Address [address] [place] [address] Care Team Providers Care Wrestling Coach Name Role Phone Jina Banda MD Primary Care Provider Unav ailable Encounter Details Date Type Department Care Team (Late st Contact Info) Description 12/22/2005 Outpatient Historical [facility] Internal Medicine - [facility] [id number] [place] [address] [address] [place] [address] Jina Banda MD NO ADDRESS ON FILE Social History Tobacco Use Types Packs/Day Years Used Date Smoking Tobacco: Never Assessed Comments Unknown Sex and Gender Information Value Date Recorded Sex Assigned at Not on file Legal Sex Female 5:30 AM MEDICAL MANAGER Gender Identity Not on file Sexual [...] PM CDT Office Visit [facility] Heart and Vascular At [address] [place] [address] Randal Cooley MD [address] [place] [address] 2014 [place] [address] 10/27/2024 10:00 AM CDT Office Visit [facility] Heart and Vascular At [address] [place] [address] Randal Cooley MD [address] [facility] 2014 [place] [address] 10/28/2024 9:30 AM CDT Office Visit [facility] Urology [facility] [address] [facility] [address] [facility] [address] [place] [address] [place] [address] [facility] 260 [place] [address] documented as of this encounter Visit Diagnoses Not on filedocumented in this encounter Additional Health Concerns Infection Onset Date Last Indicated Resolved Time R/O COVID-19 11/08/2019 11/08/2019 11/11/2019 12:3 1 AM CDT R/O COVID-19 02/01/2020 02/01/2020 02/03/2020 2:00 AM MEDICAL MANAGER documented as of this encounter Care Teams Wrestling Coach Relationship Specialty Start Date End Date Jina Banda MD PCP - General Internal Medicine 06/20/16 12/03/21 documented as of this encounter
--- OUTSIDE RECORDS SUMMARY | 2024-05-18 10:12 | XMS_ITS | Encounter Summary ---
Author Organization [facility] Address [address] [place] [address] Care Team Providers Care Accounting Manager Name Role Phone Jina Banda MD Primary Care Provider Unav ailable Encounter Details Date Type Department Care Team (Late st Contact Info) Description 09/07/2006 Outpatient Historical [facility] Internal Medicine - [facility] [id number] [place] [address] [address] [place] [address] Jina Banda MD NO ADDRESS ON FILE Social History Tobacco Use Types Packs/Day Years Used Date Smoking Tobacco: Never Assessed Comments Unknown Sex and Gender Information Value Date Recorded Sex Assigned at Not on file Legal Sex Female 5:30 AM PASTOR Gender Identity Not on file Sexual Orientation [...] [facility] Heart and Vascular At [address] 2014 [place] [address] Randal Cooley MD [address] [place] [address] 2014 [place] [address] 10/27/2024 10:00 AM CDT Office Visit [facility] Heart and Vascular At [address] [place] [address] Randal Cooley MD [address] [place] [address] 2014 [place] [address] 10/28/2024 9:30 AM CDT Office Visit [facility] Urology [facility] [address] [place] [address] [place] [address] [place] [address] documented as of this encounter Visit Diagnoses Not on filedocumented in this encounter Additional Health Concerns Infection Onset Date Last Indicated Resolved Time R/O COVID-19 11/08/2019 11/08/2019 11/11/2019 12:3 1 AM CDT R/O COVID-19 02/01/2020 02/01/2020 02/03/2020 2:00 AM PASTOR documented as of this encounter Care Teams Accounting Manager Relationship Specialty Start Date End Date Jina Banda MD PCP - General Internal Medicine 06/20/16 12/03/21 documented as of this encounter
--- OUTSIDE RECORDS SUMMARY | 2024-05-18 10:12 | XMS_ITS | Encounter Summary ---
Author Organization [facility] Address [address] [place] [address] Care Team Providers Care Senior Advisor Name Role Phone Jina Banda MD Primary Care Provider Unav ailable Encounter Details Date Type Department Care Team (Late st Contact Info) Description 06/16/2006 Outpatient Historical [facility] Internal Medicine - [facility] [address] [address] [facility] [address] [place] [address] Jina Banda MD NO ADDRESS ON FILE Other Specified Visual Disturbances (Primary Dx) Social History Tobacco Use Types Packs/Day Years Used Date Smoking Tobacco: Never Assessed Comments Unknown Sex and Gender Information Value Date Recorded Sex Assigned at Not on file Legal Sex Female 5:30 AM PRECIPITATION EQUIPMENT TENDER Gender Identity Not on file Sexual Orientation Not on file documented as of this encounter Plan of Treatment Upcoming Encounters Date Type Department Care Team (Late st Contact Info) Description 09/08/2024 12:00 PM CDT Office Visit [facility]3] Heart and Vascular At [address] [place] [address] Randal Cooley MD [address] [place] [address] 2014 [place] [address] 10/27/2024 10:00 AM CDT Office Visit [facility]3] Heart and Vascular At [address] [place] [address] Randal Cooley MD [address] [place] [address] 2014 [place] [address] 10/28/2024 9:30 AM CDT Office Visit [facility]3] Urology [facility] [address] [place] [address] [place] [address] [place] [address] documented as of this encounter [...] and non- Americans is available on the [facility] Intranet at: [email or web address] health centerWIBatrium health navicent [email or web address] Select: Lab Policies and Procedures Select: Reference [...] R/O COVID-19 02/01/2020 02/01/2020 02/03/2020 2:00 AM PRECIPITATION EQUIPMENT TENDER documented as of this encounter Care Teams Senior Advisor Relationship Specialty Start Date End Date Jina Banda MD PCP - General Internal Medicine 06/20/16 12/03/21 documented as of this encounter
--- OUTSIDE RECORDS SUMMARY | 2024-05-18 10:12 | XMS_ITS | Encounter Summary ---
Author Organization [facility] Address [address] [place] [address] Care Team Providers Care Pole Peeling Machine Operator Helper Name Role Phone Jina Banda MD Primary Care Provider Unav ailable Encounter Details Date Type Department Care Team (Late st Contact Info) Description 04/14/2005 Outpatient Historical [facility] Internal Medicine - [facility] [phone] [place] [address] [address] [place] [address] Jina Banda MD NO ADDRESS ON FILE Social History Tobacco Use Types Packs/Day Years Used Date Smoking Tobacco: Never Assessed Comments Unknown Sex and Gender Information Value Date Recorded Sex Assigned at Not on file Legal Sex Female 5:30 AM HARMONICA MAKER Gender Identity Not on file Sexual Orientation Not on file documented as of this encounter Plan of Treatment Upcoming Encounters Date Type Department Care Team (Late st Contact Info) Description 09/08/2024 12:00 PM CDT Office Visit [facility] Heart and Vascular At [address] [place] [address] Randal Cooley MD [address] [place] [address] 2014 [place] [address] 10/27/2024 10:00 AM CDT Office Visit [facility] Heart and Vascular At [address] [place] [address] Randal Cooley MD [address] [place] [address] 2014 [place] [address] 10/28/2024 9:30 AM CDT Office Visit [facility] Urology [facility] [address] [facility] [address] [facility] 260 [place] [address] [place] [address] [facility] [address] [facility] 260 [place] [address] documented as of this encounter Visit Diagnoses Not on filedocumented in this encounter Additional Health Concerns Infection Onset Date Last Indicated Resolved Time R/O COVID-19 11/08/2019 11/08/2019 11/11/2019 12:3 1 AM CDT R/O COVID-19 02/01/2020 02/01/2020 02/03/2020 2:00 AM HARMONICA MAKER documented as of this encounter Care Teams Pole Peeling Machine Operator Helper Relationship Specialty Start Date End Date Jina Banda MD PCP - General Internal Medicine 06/20/16 12/03/21 documented as of this encounter
--- OUTSIDE RECORDS SUMMARY | 2024-05-18 10:12 | XMS_ITS | Encounter Summary ---
Author Organization [facility] Address [address] [place] [address] Care Team Providers Care Geospatial Technician Name Role Phone Jina Banda MD Primary Care Provider Unav ailable Encounter Details Date Type Department Care Team (Late st Contact Info) Description 12/03/2004 Outpatient Historical [facility] Charo Haynes [address] [place] [address] SCREENING MAMM-MAILG NEOPL NEC (Primary Dx) Social History Tobacco Use Types Packs/Day Years Used Date Smoking Tobacco: Never Assessed Comments Unknown Sex and Gender Information Value Date Recorded Sex Assigned at Not on file Legal Sex Female 5:30 AM FOOD SERVICE AIDE Gender Identity Not on file Sexual Orientation Not on file documented as of this encounter Plan of Treatment Upcoming Encounters Date Type Department Care Team (Late st Contact Info) Description 09/08/2024 12:00 PM CDT Office Visit [facility] Heart and Vascular At [address] [place] [address] Randal Cooley MD [address] [place] [address] 2014 [place] [address] 10/27/2024 10:00 AM CDT Office Visit [facility] Heart and Vascular At [address] [place] [address] Randal Cooley MD [address] [place] [address] 2014 [place] [address] 10/28/2024 9:30 AM CDT Office Visit [facility] Urology [facility] [address] [facility] [place] [address] [place] [address] [place] [address] [facility] [place] 260 [place] [address] documented as of this encounter Visit Diagnoses Diagnosis Other screening mammogram- Primary documented in this encounter Additional Health Concerns Infection Onset Date Last Indicated Resolved Time R/O COVID-19 11/08/2019 11/08/2019 11/11/2019 12:3 1 AM CDT R/O COVID-19 02/01/2020 02/01/2020 02/03/2020 2:00 AM FOOD SERVICE AIDE documented as of this encounter Care Teams Geospatial Technician Relationship Specialty Start Date End Date Jina Banda MD PCP - General Internal Medicine 06/20/16 12/03/21 documented as of this encounter
--- OUTSIDE RECORDS SUMMARY | 2024-05-18 10:12 | XMS_ITS | Encounter Summary ---
Author Organization [facility] Address [address] [place] [address] Care Team Providers Care Technical Solutions Engineer Name Role Phone Jina Banda MD Primary Care Provider Unav ailable Encounter Details Date Type Department Care Team (Late st Contact Info) Description 04/15/2005 Outpatient Historical [facility] Adult Hospitalists [address] [phone] Jack Thompson MD [address] [place], [place] [address], [place] [phone] Social History Tobacco Use Types Packs/Day Years Used Date Smoking Tobacco: Never Assessed Comments Unknown Sex and Gender Information Value Date Recorded Sex Assigned at Not on file Legal Sex Female 5:30 AM COPPING MACHINE OPERATOR Gender Identity Not on file Sexual Orientation Not on file documented as of this encounter Plan of Treatment Upcoming Encounters Date Type Department Care Team (Late st Contact Info) Description 09/08/2024 12:00 PM CDT Office Visit [facility] Heart and Vascular At [address] [place] [address] Randal Cooley MD [address] [place] [address] 2014 [place] [address] 10/27/2024 10:00 AM CDT Office Visit [facility] Heart and Vascular At [address] [place] [address] Randal Cooley MD [address] [place] [address] 2014 [place] [address] 10/28/2024 9:30 AM CDT Office Visit [facility] Urology [facility] [address] [facility] 260 [place] [address] [place] [address] [facility] [address] [place] [address] documented as of this encounter Visit Diagnoses Not on filedocumented in this encounter Additional Health Concerns Infection Onset Date Last Indicated Resolved Time R/O COVID-19 11/08/2019 11/08/2019 11/11/2019 12:3 1 AM CDT R/O COVID-19 02/01/2020 02/01/2020 02/03/2020 2:00 AM COPPING MACHINE OPERATOR documented as of this encounter Care Teams Technical Solutions Engineer Relationship Specialty Start Date End Date Jina Banda MD PCP - General Internal Medicine 06/20/16 12/03/21 documented as of this encounter
--- OUTSIDE RECORDS SUMMARY | 2024-05-18 10:12 | XMS_ITS | Encounter Summary ---
Author Organization [facility] Address [address] [place] [address] Care Team Providers Care Laborer Mine Name Role Phone Jina Banda MD Primary Care Provider Unav ailable Encounter Details Date Type Department Care Team (Late st Contact Info) Description 05/13/2004 Outpatient Historical [facility] Internal Medicine - [facility] [phone] [place] [address] [address] [place] [address] Jina Banda MD NO ADDRESS ON FILE Social History Tobacco Use Types Packs/Day Years Used Date Smoking Tobacco: Never Assessed Comments Unknown Sex and Gender Information Value Date Recorded Sex Assigned at Not on file Legal Sex Female 5:30 AM LUSTERER Gender Identity Not on file Sexual Orientation Not on file documented as of this encounter Plan of Treatment Upcoming Encounters Date Type Department Care Team (Late st Contact Info) Description 09/08/2024 12:00 PM CDT Office Visit [facility] Heart and Vascular At [address] [place] [address] Randal Cooley MD [address] [place] [address] 2014 [place] [address] 10/27/2024 10:00 AM CDT Office Visit [facility] Heart and Vascular At [address] [place] [address] Randal Cooley MD [address] [place] [address] 2014 [place] [address] 10/28/2024 9:30 AM CDT Office Visit [facility] Urology [facility] [address] [facility] [facility] [address] [facility] [address] [place] [address] [place] [address] [facility] [address] [facility] 260 [place] [address] documented as of this encounter Visit Diagnoses Not on filedocumented in this encounter Additional Health Concerns Infection Onset Date Last Indicated Resolved Time R/O COVID-19 11/08/2019 11/08/2019 11/11/2019 12:3 1 AM CDT R/O COVID-19 02/01/2020 02/01/2020 02/03/2020 2:00 AM LUSTERER documented as of this encounter Care Teams Laborer Mine Relationship Specialty Start Date End Date Jina Banda MD PCP - General Internal Medicine 06/20/16 12/03/21 documented as of this encounter
--- OUTSIDE RECORDS SUMMARY | 2024-05-18 10:12 | XMS_ITS | Encounter Summary ---
Author Organization [facility] Address [address] [place] [address] Care Team Providers Care Leaf Sticker Name Role Phone Linda Gimenez MD Primary Care Provider Unav ailable Encounter Details Date Type Department Care Team (Latest Contact Info) Description 02/04/2008 Outpatient Historical [facility] PATRICIO Barahona, Bailee Alva, DO NO ADDRESS ON FILE Other Screening Mammogram Social History Tobacco Use Types Packs/Day Years Used Date Smoking Tobacco: Never Alcohol Use Standard Drinks/Week Comments Not Asked 0 (1 standard drink = 0.6 oz pur e alcohol) Comments No Sex and Gender Information Value Date Recorded Sex Assigned at Not on file Legal Sex Female 5:30 AM ARCHIVIST POLITICAL HISTORY Gender Identity Not on file Sexual Orientation Not on file documented as of this encounter Plan of Treatment Upcoming Encounters Date Type Department Care Team (Late st Contact Info) Description 09/08/2024 12:00 PM CDT Office Visit [facility]3] Heart and Vascular At [address] [place] [address] Randal Cooley MD [address] [place] [address] 2014 [place] [address] 10/27/2024 10:00 AM CDT Office Visit [facility]3] Heart and Vascular At [address] [place] [address] Randal Cooley MD [address] [place] [address] 2014 [place] [address] 10/28/2024 9:30 AM CDT Office Visit [facility]3] Urology [facility] [address] [facility] [address] [place] [address] [place] [address] [facility] [place] [address] [place] [address] documented as of this encounter Procedures Procedure Name Priority Date/Time Associated Diagnosis Comments MAMMO SCREEN BILAT W OR WO CAD Routine 02/04/2008 8:06 AM ARCHIVIST POLITICAL HISTORY documented in this encounter Results * MAMMO DIGITAL SCREEN BILAT (02/04/2008 8:06 AM ARCHIVIST POLITICAL HISTORY) Anatomical Region Laterality Modality Breast Bilateral Other 02/04/2008 8:06 AM ARCHIVIST POLITICAL HISTORY Narrative 02/04/2008 11:46 PM ARCHIVIST POLITICAL HISTORY [id number] [place], [place] [address] Admit Date: 02/04/2008 EDU WEI Sex: F Admit Prov: BAILEE BARAHONA Date: 1960 Primary Care Prov: PERNELLLINDA CMRN: [id number] Room: JOSUE SSN: [id number] IMAGING SERVICES Ordering Prov: BAILEE BARAHONA Accession Number: [id number] Interpretation BILATERAL SCREENING DIGITAL MAMMOGRAMS WITH COMPUTER [...] Procedure Note Kecia Arreola MD - 02/04/2008 [facility] [place] [place] [address] [place], [place] [address] Admit Date: 02/04/2008 EDU WEI Sex: F Admit Prov: BAILEE BARAHONA Date:1960 Primary Care Prov: LINDA GIMENEZ CMRN: [id number] Room: B-Michelle SSN: [id number] IMAGING SERVICES Ordering Prov: BAILEE BARAHONA Interpretation BILATERAL SCREENING DIGITAL MAMMOGRAMS WITH COMPUTER ASSISTEDDIAGNOSIS 02/04/2008 History: Annual screening study. Comparison mammograms dating back to 2005 FINDINGS: The parenchyma is very dense bilaterally. This lowersthe sensitivity of mammography in detecting disease. There is no mass, malignant calcification, lymphadenopathy, architectural distortion orother sign of malignancy. The images were reviewed using the [employer]. SUMMARY: Dense mammary parenchyma. No mammographic evidence [...] R/O COVID-19 02/01/2020 02/01/2020 02/03/2020 2:00 AM ARCHIVIST POLITICAL HISTORY documented as of this encounter Care Teams Leaf Sticker Relationship Specialty Start Date End Date Linda Gimenez MD PCP - General Internal Medicine 06/20/16 12/03/21 documented as of this encounter
--- OUTSIDE RECORDS SUMMARY | 2024-05-18 10:12 | XMS_ITS | Encounter Summary ---
Author Organization [facility] Address [address] [place] [address] Care Team Providers Care Liquor Department Manager Name Role Phone Jina Banda MD [...] on file Legal Sex Female 5:30 AM HOT ROLL LAMINATOR Gender Identity Not on file Sexual Orientation Not on file documented as of this encounter Plan of Treatment Upcoming Encounters Date Type Department Care Team (Late st Contact Info) Description 09/08/2024 12:00 PM CDT Office Visit [facility] Heart and Vascular At [address] [place] [address] Randal Cooley MD [address] [place] [address] 2014 [place] [address] 10/27/2024 10:00 AM CDT Office Visit [facility] Heart and Vascular At [address] [place] [address] Randal Cooley MD [address] [place] [address] 2014 [place] [address] 10/28/2024 9:30 AM CDT Office Visit [facility] Urology [facility] [address] [facility] [address] [place] [address] [place] [address] [facility] [address] [facility] [address] [place] [address] documented as of this encounter Visit Diagnoses Diagnosis Iron deficiency anemia, unspecified documented in this encounter Additional Health Concerns Infection Onset Date Last Indicated Resolved Time R/O COVID-19 11/08/2019 11/08/2019 11/11/2019 12:3 1 AM CDT R/O COVID-19 02/01/2020 02/01/2020 02/03/2020 2:00 AM HOT ROLL LAMINATOR documented as of this encounter Care Teams Liquor Department Manager Relationship Specialty Start Date End Date Jina Banda MD PCP - General Internal Medicine 06/20/16 12/03/21 documented as of this encounter
--- OUTSIDE RECORDS SUMMARY | 2024-05-18 10:12 | XMS_ITS | Encounter Summary ---
Author Organization [facility] Address [address] [place] [address] Care Team Providers Care General Internist And Physician Leader Name Role Phone Unavailable Primary Care Provider [...] on file Legal Sex Female 5:30 AM CANCER PROGRAM COORDINATOR Gender Identity Not on file Sexual [...] [facility] At [address] [place] [address] Randal Cooley MD [address] [place] [address] 2014 [place] [address] 10/27/2024 10:00 AM CDT Office Visit [facility] Heart and Vascular At [address] [place] [address] Randal Cooley MD [address] [place] [address] 2014 [place] [address] 10/28/2024 9:30 AM CDT Office [facility] Urology [facility] [address] [facility] [address] [place] [address] [place] [address] [facility] [address] [place] [address] documented as of this encounter Visit Diagnoses Not on filedocumented in this encounter
--- OUTSIDE RECORDS SUMMARY | 2024-05-18 10:12 | XMS_ITS | Encounter Summary ---
Author Organization [facility] Address [address] [place] [address] Care Team Providers Care Counterintelligence Specialist Name Role Phone Jina Banda MD Primary Care Provider Unav ailable Encounter Details Date Type Department Care Team (Late st Contact Info) Description 02/25/2006 Outpatient Historical [facility] Internal Medicine - [facility] [id number] [place] [address] [address] [place] [address] Jina Banda MD NO ADDRESS ON FILE Social History Tobacco Use Types Packs/Day Years Used Date Smoking Tobacco: Never Assessed Comments Unknown Sex and Gender Information Value Date Recorded Sex Assigned at Not on file Legal Sex Female 5:30 AM ENVIRONMENTAL STUDIES PROGRAM DIRECTOR Gender Identity Not on file Sexual Orientation Not on file documented as of this encounter Plan of Treatment Upcoming Encounters Date Type Department Care Team (Late st Contact Info) Description 09/08/2024 12:00 PM CDT Office Visit [facility] Heart and Vascular At [address] [place] [address] Randal Cooley MD [address] [place] [address] 2014 [place] [address] 10/27/2024 10:00 AM CDT Office Visit [facility] Heart and Vascular At [address] [place] [address] Randal Cooley MD [address] [place] [address] 2014 [place] [address] 10/28/2024 9:30 AM CDT Office Visit [facility] Urology [facility] [address] [facility] [address] [place] [address] [place] [address] [facility] [address] [facility] [address] [place] [address] documented as of this encounter Visit Diagnoses Not on filedocumented in this encounter Additional Health Concerns Infection Onset Date Last Indicated Resolved Time R/O COVID-19 11/08/2019 11/08/2019 11/11/2019 12:3 1 AM CDT R/O COVID-19 02/01/2020 02/01/2020 02/03/2020 2:00 AM ENVIRONMENTAL STUDIES PROGRAM DIRECTOR documented as of this encounter Care Teams Counterintelligence Specialist Relationship Specialty Start Date End Date Jina Banda MD PCP - General Internal Medicine 06/20/16 12/03/21 documented as of this encounter
--- OUTSIDE RECORDS SUMMARY | 2024-05-18 10:12 | XMS_ITS | Encounter Summary ---
Author Organization [facility] Address [address] [place] [address] Care Team Providers Care Clinical Research Nurse Name Role Phone Jina Banda MD Primary [...] on file Legal Sex Female 5:30 AM COUNTER TOP ASSEMBLER Gender Identity Not on file Sexual Orientation Not on file documented as of this encounter Plan of Treatment Upcoming Encounters Date Type Department Care Team (Late st Contact Info) Description 09/08/2024 12:00 PM CDT Office Visit [facility] Heart and Vascular At [address] [place] [address] Randal Cooley MD [address] [place] [address] 2014 [place] [address] 10/27/2024 10:00 AM CDT Office Visit [facility] Heart and Vascular At [address] [place] [address] Randal Cooley MD [address] [place] [address] 2014 [place] [address] 10/28/2024 9:30 AM CDT Office Visit [facility] Urology [facility] [address] [facility] [address] [place] [address] [place] [address] [facility] [address] [place] [address] documented as of this encounter Visit Diagnoses Diagnosis Other screening mammogram- Primary documented in this encounter Additional Health Concerns Infection Onset Date Last Indicated Resolved Time R/O COVID-19 11/08/2019 11/08/2019 11/11/2019 12:3 1 AM CDT R/O COVID-19 02/01/2020 02/01/2020 02/03/2020 2:00 AM COUNTER TOP ASSEMBLER documented as of this encounter Care Teams Clinical Research Nurse Relationship Specialty Start Date End Date Jina Banda MD PCP - General Internal Medicine 06/20/16 12/03/21 documented as of this encounter
--- OUTSIDE RECORDS SUMMARY | 2024-05-18 10:12 | XMS_ITS | Encounter Summary ---
Author Organization [facility] Address [address] [place] [address] Care Team Providers Care Powdered Sugar Pulverizer Operator Name Role Phone Jina Banda MD Primary Care Provider Unav ailable Encounter Details Date Type Department Care Team (Late st Contact Info) Description 01/14/2008 Outpatient Historical [facility], [address] Jina Banda MD NO ADDRESS ON FILE Urinary Tract Infection, Site not Specified Social History Tobacco Use Types Packs/Day Years Used Date Smoking Tobacco: Never Alcohol Use Standard Drinks/Week Comments Not Asked 0 (1 standard drink = 0.6 oz pur e alcohol) Comments No Sex and Gender Information Value Date Recorded Sex Assigned at Not on file Legal Sex Female 5:30 AM ENGLISH COMPOSITION INSTRUCTOR Gender Identity Not on file Sexual Orientation Not on file documented as of this encounter Plan of Treatment Upcoming Encounters Date Type Department Care Team (Late st Contact Info) Description 09/08/2024 12:00 PM CDT Office Visit [facility] Heart and Vascular At [address] [place] [address] Randal Cooley MD [address] [place] [address] 2014 [place] [address] 10/27/2024 10:00 AM CDT Office Visit [facility] Heart and Vascular At [address] [place] [address] Randal Cooley MD [address] [place] [address] 2014 [place] [address] 10/28/2024 9:30 AM CDT Office Visit [facility] Urology [facility] [address] [facility] [address] [place] [address] [place] [address] [facility] [address] [facility] 260 [place] [address] documented as of this encounter Visit Diagnoses Diagnosis Urinary tract infection, site not specified documented in this encounter Additional Health Concerns Infection Onset Date Last Indicated Resolved Time R/O COVID-19 11/08/2019 11/08/2019 11/11/2019 12:3 1 AM CDT R/O COVID-19 02/01/2020 02/01/2020 02/03/2020 2:00 AM ENGLISH COMPOSITION INSTRUCTOR documented as of this encounter Care Teams Powdered Sugar Pulverizer Operator Relationship Specialty Start Date End Date Jina Banda MD PCP - General Internal Medicine 06/20/16 12/03/21 documented as of this encounter
--- OUTSIDE RECORDS SUMMARY | 2024-05-18 10:12 | XMS_ITS | Encounter Summary ---
Author Organization [facility] Address [address] [place] [address] Care Team Providers Care Gas Fitter Name Role Phone Jina Banda MD Primary Care Provider Unav ailable Encounter Details Date Type Department Care Team (Late st Contact Info) Description 09/20/2008 Outpatient Historical [facility] Thelma Mota MD [address] 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 MANAGER Gender Identity Not on file Sexual Orientation Not on file documented as of this encounter Plan of Treatment Upcoming Encounters Date Type Department Care Team (Late st Contact Info) Description 09/08/2024 12:00 PM CDT Office Visit [facility] Heart and Vascular At [address] [place] [address] Randal Cooley MD [address] [place] [address] 2014 [place] [address] 10/27/2024 10:00 AM CDT Office Visit [facility] At [address] [place] [address] Randal Cooley MD [address] [place] [address] 2014 [place] [address] 10/28/2024 9:30 AM CDT Office Visit [facility] Urology [facility] [address] [facility] [address] [place] [address] [place] [address] [facility] 260 [place] [address] documented as of this encounter [...] AM CDT) ENDOMYSIAL AB IGA Negative Negative [facility] Comment: Lab test performed by: [employer] [address] [place] [address] GIUSEPPE RUTLEDGE MD 09/20/2008 9:35 AM CDT 09/20/2008 9:53 AM CDT Narrative INTERFACE SYSTEM - 09/23/2008 5:50 AM CDT cc: Eva Borden CNP us Thelma Haile MD CHEMISTRY ORDERABLES Final R esult INTERFACE SYSTEM Refer to clinic/hospital department [facility] CLIA# [id number] [address] [place] [address] * (ABNORMAL) IGA (09/20/2008 9:35 AM CDT) IGA <5.0(L) 87.0 - 421.0 mg/dL [facility] 09/20/2008 9:35 AM CDT 09/20/2008 9:53 AM CDT Narrative INTERFACE SYSTEM - 09/20/2008 10:51 AM CDT cc: Eva Borden CNP us Thelma Haile MD CHEMISTRY ORDERABLES Final R esult Performing Organization Address [facility] de Phone Number INTERFACE SYSTEM Refer to clinic/hospital department [facility] CLIA# [id number] [address] [place] [address] * GLIADIN ABS IGG/IGA (09/20/2008 9:35 AM CDT) GLIADIN IGA AB <3 <11 U/mL [facility] Comment: Reference Range: <11 U/mL Negative 11-17 U/mL Equivocal >17 U/mL Positive Lab test performed by: [employer]/[address] [address] GIUSEPPE RUTLEDGE MD GLIADIN IGG AB 7 <11 U/mL [facility] Comment: Reference Range: <11 U/mL Negative 11-17 U/mL Equivocal >17 U/mL Positive 09/20/2008 9:35 AM CDT 09/20/2008 9:53 AM CDT Narrative INTERFACE SYSTEM - 09/22/2008 4:34 PM CDT cc: Eva Borden CNP us Thelma Haile MD CHEMISTRY ORDERABLES Final R esult Performing Organization Address City/[facility] de Phone Number INTERFACE SYSTEM Refer to clinic/hospital department [facility] CLIA# [id number] [address] [address] * TRANSGLUTAMINASE IGG ANTIBODY (09/20/2008 9:35 AM CDT) TRANSGLUTAMINASE IGG AB <3 <7 U/mL [facility] Comment: Reference range: <7 U/mL Negative 7-10 U/mL Equivocal >10 U/mL Positive Lab test performed by: [employer] GIUSEPPE RUTLEDGE MD 09/20/2008 9:35 AM CDT 09/20/2008 9:53 AM CDT Narrative INTERFACE SYSTEM - 09/25/2008 7:17 PM CDT cc: Eva Borden CNP Thelma Haile MD CHEMISTRY ORDERABLES Final R esult Performing Organization Address [facility] Phone Number INTERFACE SYSTEM Refer to clinic/hospital department [facility] CLIA# [id number] [address] [place] [address] * TRANSGLUTAMINASE IGA ANTIBODY (09/20/2008 9:35 AM CDT) Pathologist [facility] TRANSGLUTAMINASE IGA AB <3 <5 U/mL [facility] Comment: Reference range: <5 U/mL Negative 5-8 U/mL Equivocal >8 U/mL Positive Lab test performed by: [employer] [id number] [place] [address] GIUSEPPE RUTLEDGE MD 09/20/2008 9:35 AM CDT 09/20/2008 9:53 AM CDT Narrative INTERFACE SYSTEM - 09/23/2008 8:24 PM CDT cc: Eva Borden CNP Thelma Haile MD CHEMISTRY ORDERABLES Final R esult Performing Organization Address [facility] Phone Number INTERFACE SYSTEM Refer to clinic/hospital department [facility] CLIA# [id number] [address] [place] [address] documented in this encounter Visit Diagnoses Diagnosis Diarrhea documented in this encounter Additional Health Concerns Infection Onset Date Last Indicated Resolved Time R/O COVID-19 11/08/2019 11/08/2019 11/11/2019 12:3 1 AM CDT R/O COVID-19 02/01/2020 02/01/2020 02/03/2020 2:00 AM WORKSHOP MANAGER documented as of this encounter Care Teams Gas Fitter Relationship Specialty Start Date End Date Jina Banda MD PCP - General Internal Medicine 06/20/16 12/03/21 documented as of this encounter
--- OUTSIDE RECORDS SUMMARY | 2024-05-18 10:12 | XMS_ITS | Encounter Summary ---
Author Organization [facility] Address [address] [place] [address] Care Team Providers Care Rivet Tosser Name Role Phone Jina Banda MD Primary Care Provider Unav ailable Encounter Details Date Type Department Care Team (Late st Contact Info) Description 02/16/2007 Outpatient Historical [facility], Authorized P NO ADDRESS ON FILE William Pimentel MD [address] [place] [address] Lisa Palafox MD NO ADDRESS ON FILE Other and Unspecified Noninfectious Gastroenteritis and Colitis Social History Tobacco Use Types Packs/Day Years Used Date Smoking Tobacco: Never Assessed Comments Unknown Sex and Gender Information Value Date Recorded Sex Assigned at Not on file 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 Sex Female 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 CRITIC Gender Identity Not on file Sexual Orientation Not on file documented as of this encounter Plan of Treatment Upcoming Encounters Date Type Department Care Team (Late Contact Info) Description 09/08/2024 12:00 PM CDT Office Visit [facility] Heart and Vascular At [address] [place] [address] Randal Cooley MD [address] [place] [address] 2014 [place], [place] [address] 10/27/2024 10:00 AM CDT Office Visit [facility] Heart and Vascular At [address] [place] [address] Randal Cooley MD [address] [place] [address] 2014 [place] [address] 10/28/2024 9:30 AM CDT Office Visit [facility] Urology [facility] [address] [place] [address] [place] [address] [place] [address] [facility] [address] [place] [address] documented as of this encounter Procedures Procedure Name Priority Date/Time Associated Diagnosis Comments CBC WITH DIFFERENTIAL Routine 02/18/2007 4:56 AM BOOK CRITIC CBC WITH DIFFERENTIAL Routine 02/18/2007 4:56 AM BOOK CRITIC COMPREHENSIVE METABOLIC PANEL Routine 02/18/2007 4:56 AM BOOK CRITIC CBC WITH DIFFERENTIAL Routine 02/17/2007 4:48 AM BOOK CRITIC CBC WITH DIFFERENTIAL Routine 02/17/2007 4:48 AM BOOK CRITIC C-REACTIVE PROTEIN Routine 02/17/2007 4: 48 AM BOOK CRITIC VITAMIN B12 LEVEL Routine 02/17/2007 4:4 8 AM BOOK CRITIC BASIC METABOLIC PANEL Routine 02/17/2007 4:48 AM BOOK CRITIC CBC WITH DIFFERENTIAL Routine 02/16/2007 10:35 PM BOOK CRITIC CBC WITH DIFFERENTIAL Routine 02/16/2007 10:35 PM BOOK CRITIC LIPASE Routine 02/16/2007 10:35 PM BOOK CRITIC AMYLASE Routine 02/16/2007 10:35 PM BOOK CRITIC COMPREHENSIVE METABOLIC PANEL Routine 02/16/2007 10:35 PM BOOK CRITIC documented in this encounter Results * (ABNORMAL) CBC WITH DIFFERENTIAL (02/18/2007 4:56 AM BOOK CRITIC) [facility] NEUTROPHILS 39(L) 45 - 70 % [...] 0.20 K/uL INTERFACE SYSTEM 02/18/2007 4:56 AM BOOK CRITIC Lisa Palafox MD HEMATOLOGY ORDERABLES Edited Performing Organization Address [facility] de Phone Number INTERFACE SYSTEM Refer to clinic/hospital department * (ABNORMAL) CBC WITH DIFFERENTIAL (02/18/2007 4:56 AM BOOK CRITIC) [facility] WBC 3.2(L) 4.0 - 9.8 K/uL [...] 12.4 fL INTERFACE SYSTEM 02/18/2007 4:56 AM BOOK CRITIC us Lisa Palafox MD HEMATOLOGY ORDERABLES Edited Performing Organization Address [facility] de Phone Number INTERFACE SYSTEM Refer to clinic/hospital department * (ABNORMAL) COMPREHENSIVE METABOLIC PANEL (02/18/2007 4:56 AM BOOK CRITIC) GLUCOSE 81 65 - 99 mg/dL INTERFACE [...] and non- Americans is available on the [facility] Intranet at: [email or web address] Select: Lab Policies and Procedures Select: Reference Ranges - GFR 02/18/2007 4:56 AM BOOK CRITIC us Lisa Palafox MD CHEMISTRY ORDERABLES Edited INTERFACE SYSTEM Refer to clinic/hospital department * CBC WITH DIFFERENTIAL (02/17/2007 4:48 AM BOOK CRITIC) Pathologist [facility] NEUTROPHILS 67 45 - 70 % INTERFAC [...] 0.20 K/uL INTERFACE SYSTEM 02/17/2007 4:48 AM BOOK CRITIC William Pimentel MD HEMATOLOGY ORDERABLES Edited Performing Organization Address [facility] de Phone Number INTERFACE SYSTEM Refer to clinic/hospital department * (ABNORMAL) CBC WITH DIFFERENTIAL (02/17/2007 4:48 AM BOOK CRITIC) WBC 2.9(L) 4.0 - 9.8 K/uL INTERFACE [...] 12.4 fL INTERFACE SYSTEM 02/17/2007 4:48 AM BOOK CRITIC William Pimentel MD HEMATOLOGY ORDERABLES Edited Performing Organization Address [facility] de Phone Number INTERFACE SYSTEM Refer to clinic/hospital department * VITAMIN B12 (02/17/2007 4:48 AM BOOK CRITIC) VITAMIN B12 211 211 - 946 pg/mL INTERFACE SYSTEM Comment: It has been reported that between 5 to 10% of patients with values between 200 and 400 pg/mL may experience neuropsychiatric and hematologic abnormalities due to occult B12 deficiency. Less than 1% of patients with values above 400 pg/mL will have symptoms. 02/17/2007 4:48 AM BOOK CRITIC Result Arash Pimentel MD CHEMISTRY ORDERABLES Edited Performing Organization Address [facility] de Phone Number INTERFACE SYSTEM Refer to clinic/hospital department * C-REACTIVE PROTEIN (02/17/2007 4:48 AM BOOK CRITIC) Pathologist [facility] CRP <0.2 0.0 - 0.8 mg/dL INTERFACE SYSTEM 02/17/2007 4:48 AM BOOK CRITIC us William Pimentel MD CHEMISTRY ORDERABLES Edited Performing Organization Address [facility] de Phone Number INTERFACE SYSTEM Refer to clinic/hospital department * (ABNORMAL) BASIC METABOLIC PANEL (02/17/2007 4:48 AM BOOK CRITIC) Pathologist [facility] GLUCOSE 111(H) 65 - 99 mg/dL INTERFACE [...] and non- Americans is available on the [facility] Intranet at: [email or web address] Select: Lab Policies and Procedures Select: Reference Ranges - GFR 02/17/2007 4:48 AM BOOK CRITIC Result Arash Pimentel MD CHEMISTRY ORDERABLES Edited Performing Organization Address [facility] de Phone Number INTERFACE SYSTEM Refer to clinic/hospital department * (ABNORMAL) CBC WITH DIFFERENTIAL (02/16/2007 10:35 PM BOOK CRITIC) NEUTROPHILS 46 45 - 70 % INTERFAC [...] K/uL INTERFACE SYSTEM 02/16/2007 10:3 5 PM BOOK CRITIC Daniel Garcia MD HEMATOLOGY ORDERABLES Edited Performing Organization Address [facility] de Phone Number INTERFACE SYSTEM Refer to clinic/hospital department * (ABNORMAL) CBC WITH DIFFERENTIAL (02/16/2007 10:35 PM BOOK CRITIC) WBC 3.5(L) 4.0 - 9.8 K/uL INTERFACE [...] fL INTERFACE SYSTEM 02/16/2007 10:3 5 PM BOOK CRITIC Daniel Garcia MD HEMATOLOGY ORDERABLES Edited Performing Organization Address [facility] Co de Phone Number INTERFACE SYSTEM Refer to clinic/hospital department * LIPASE (02/16/2007 10:35 PM BOOK CRITIC) Pathologist [facility] LIPASE 58 13 - 60 U/L INTERFAC E SYSTEM 02/16/2007 10:3 5 PM BOOK CRITIC Daniel Garcia MD CHEMISTRY ORDERABLES Edited INTERFACE SYSTEM Refer to clinic/hospital department * AMYLASE (02/16/2007 10:35 PM BOOK CRITIC) AMYLASE 86 28 - 100 U/L INTERFACE SYSTEM 02/16/2007 10:3 5 PM BOOK CRITIC Daniel Garcia MD CHEMISTRY ORDERABLES Edited INTERFACE SYSTEM Refer to clinic/hospital department * (ABNORMAL) COMPREHENSIVE METABOLIC PANEL (02/16/2007 10:35 PM BOOK CRITIC) GLUCOSE 98 65 - 99 mg/dL INTERFACE [...] and non- Americans is available on the [facility] Intranet at: [email or web address] Select: Lab Policies and Procedures Select: Reference Ranges - GFR 02/16/2007 10:3 5 PM BOOK CRITIC Daniel Garcia MD CHEMISTRY ORDERABLES Edited INTERFACE SYSTEM Refer to clinic/hospital department documented in this encounter Visit Diagnoses Diagnosis Other and unspecified noninfectious gastroenteritis and colitis(558.9) Other and unspecified noninfectious gastroenteritis and colitis documented in this encounter Additional Health Concerns Infection Onset Date Last Indicated Resolved Time R/O COVID-19 11/08/2019 11/08/2019 11/11/2019 12:3 1 AM CDT R/O COVID-19 02/01/2020 02/01/2020 02/03/2020 2:00 AM BOOK CRITIC documented as of this encounter Care Teams Rivet Tosser Relationship Specialty Start Date End Date Jina Banda MD PCP - General Internal Medicine 06/20/16 12/03/21 documented as of this encounter
--- OUTSIDE RECORDS SUMMARY | 2024-05-18 10:12 | XMS_ITS | Encounter Summary ---
Author Organization [facility] Address 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 STRIP TANK 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 Gender Identity Not on file Sexual Orientation Not on file documented as of this encounter Plan of Treatment Upcoming Encounters Date Type Department Care Team (Late st Contact Info) Description 09/08/2024 12:00 PM CDT Office Visit [facility] Heart and Vascular At [address] [place] [address] Randal Cooley MD [address] [place] [address] 2014 [place] [address] 10/27/2024 10:00 AM CDT Office Visit [facility] Heart and Vascular At [address] 2014 [place] [address] Randal Cooley MD [address] [place] [address] 2014 [place] [address] 10/28/2024 9:30 AM CDT Office Visit [facility] Urology [facility] [address] [facility] [address] [place] [address] [place] [address] [facility] [address] [facility] [address] [place] [address] documented as of this encounter Visit Diagnoses Diagnosis Injury, other and unspecified, knee, leg, ankle, and foot documented in this encounter Additional Health Concerns Infection Onset Date Last Indicated Resolved Time R/O COVID-19 11/08/2019 11/08/2019 11/11/2019 12:3 1 AM CDT R/O COVID-19 02/01/2020 02/01/2020 02/03/2020 2:00 AM STRIP TANK TENDER documented as of this encounter Care Teams Belt Loop Machine Operator Relationship Specialty Start Date End Date Jina Banda MD PCP - General Internal Medicine 06/20/16 12/03/21 documented as of this encounter
--- OUTSIDE RECORDS SUMMARY | 2024-05-18 10:12 | XMS_ITS | Encounter Summary ---
Author Organization [facility] Address [address] [place] [address] Care Team Providers Care Wind Technician Name Role Phone Jina Banda MD Primary Care Provider Unav ailable Encounter Details Date Type Department Care Team (Late st Contact Info) Description 04/14/2005 Outpatient Historical [facility] Adult Hospitalists [address] [phone] Jill Moran MD [address] [place] [phone] Social History Tobacco Use Types Packs/Day Years Used Date Smoking Tobacco: Never Assessed Comments Unknown Sex and Gender Information Value Date Recorded Sex Assigned at Not on file Legal Sex Female 5:30 AM SHEARING MACHINE TENDER Gender Identity Not on file Sexual Orientation Not on file documented as of this encounter Plan of Treatment Upcoming Encounters Date Type Department Care Team (Late st Contact Info) Description 09/08/2024 12:00 PM CDT Office Visit [facility] Heart and Vascular At [address] 2014 [place] [address] Randal Cooley MD [address] [place] [address] 2014 [place] [address] 10/27/2024 10:00 AM CDT Office Visit [facility] Heart and Vascular At [address] [place] [address] Randal Cooley MD [address] [place] [address] 2014 [place] [address] 10/28/2024 9:30 AM CDT Office Visit [facility] Urology [facility] [address] [facility] [address] [place] [address] [place] [address] [facility] 260 [place] [address] documented as of this encounter Visit Diagnoses Not on filedocumented in this encounter Additional Health Concerns Infection Onset Date Last Indicated Resolved Time R/O COVID-19 11/08/2019 11/08/2019 11/11/2019 12:3 1 AM CDT R/O COVID-19 02/01/2020 02/01/2020 02/03/2020 2:00 AM SHEARING MACHINE TENDER documented as of this encounter Care Teams Wind Technician Relationship Specialty Start Date End Date Jina Banda MD PCP - General Internal Medicine 06/20/16 12/03/21 documented as of this encounter
--- OUTSIDE RECORDS SUMMARY | 2024-05-18 10:12 | XMS_ITS | Encounter Summary ---
Author Organization [facility] Address [address] [place] [address] Care Team Providers Care Kinesiologist Name Role Phone Jina Banda MD Primary Care Provider Unav ailable Encounter Details Date Type Department Care Team (Latest Contact Info) Description 02/15/2007 Outpatient Historical [facility] [address] [place] [address] Malcolm You MD [address] [place] [address] [address] [place] [address] Pain in Joint, Pelvic Region and Thigh (Primary Dx) Social History Tobacco Use Types Packs/Day Years Used Date Smoking Tobacco: Never Assessed Comments Unknown Sex and Gender Information Value Date Recorded Sex Assigned at Not on file Legal Sex Female 5:30 AM PROJECT MANAGEMENT ADVISOR Gender Identity Not on file Sexual Orientation Not on file documented as of this encounter Plan of Treatment Upcoming Encounters Date Type Department Care Team (Late st Contact Info) Description 09/08/2024 12:00 PM CDT Office Visit [facility] Heart and Vascular At [address] [place] [address] Randal Cooley MD [address] [place] [address] 2014 [place], [place] [id number] 10/27/2024 10:00 AM CDT Office Visit [facility] Heart and Vascular At [address] [place] [address] Randal Cooley MD [address] [place] [address] 2015 [place] [address] 10/28/2024 9:30 AM CDT Office Visit [facility] Urology [facility] [address] [facility] 260 [place] [address] [place] [address] [facility] 260 [place] [address] documented as of this encounter Visit Diagnoses Diagnosis Pain in joint, pelvic region and thigh- Primary documented in this encounter Additional Health Concerns Infection Onset Date Last Indicated Resolved Time R/O COVID-19 11/08/2019 11/08/2019 11/11/2019 12:3 1 AM CDT R/O COVID-19 02/01/2020 02/01/2020 02/03/2020 2:00 AM PROJECT MANAGEMENT ADVISOR documented as of this encounter Care Teams Kinesiologist Relationship Specialty Start Date End Date Jina Banda MD PCP - General Internal Medicine 06/20/16 12/03/21 documented as of this encounter
--- OUTSIDE RECORDS SUMMARY | 2024-05-18 10:12 | XMS_ITS | Encounter Summary ---
Author Organization [facility] Address [address] [place] [address] Care Team Providers Care Chief Digital Media Officer Name Role Phone Jina Banda MD Primary Care Provider Unav ailable Encounter Details Date Type Department Care Team (Late st Contact Info) Description 12/27/2007 Outpatient Historical [facility] [address] Jina Banda MD NO ADDRESS ON FILE Hematuria, Unspecified Social History Tobacco Use Types Packs/Day Years Used Date Smoking Tobacco: Never Alcohol Use Standard Drinks/Week Comments Not Asked 0 (1 standard drink = 0.6 oz pur e alcohol) Comments No Sex and Gender Information Value Date Recorded Sex Assigned at Not on file Legal Sex Female 5:30 AM IRONWORKER APPRENTICE Gender Identity Not on file Sexual Orientation Not on file documented as of this encounter Plan of Treatment Upcoming Encounters Date Type Department Care Team (Late st Contact Info) Description 09/08/2024 12:00 PM CDT Office Visit [facility] Heart and Vascular At [address] [place] [address] Randal Cooley MD [address] [place] [address] 2014 [place] [address] 10/27/2024 10:00 AM CDT Office Visit [facility] Heart and Vascular At [address] [place] [address] Randal Cooley MD [address] [place] [address] 2014 [place] [address] 10/28/2024 9:30 AM CDT Office Visit [facility] Urology [facility] [address] [facility] [address] [place] [address] [place] [address] [facility] [address] [facility] 260 [place] [address] documented as of this encounter Visit Diagnoses Diagnosis Hematuria, unspecified documented in this encounter Additional Health Concerns Infection Onset Date Last Indicated Resolved Time R/O COVID-19 11/08/2019 11/08/2019 11/11/2019 12:3 1 AM CDT R/O COVID-19 02/01/2020 02/01/2020 02/03/2020 2:00 AM IRONWORKER APPRENTICE documented as of this encounter Care Teams Chief Digital Media Officer Relationship Specialty Start Date End Date Jina Banda MD PCP - General Internal Medicine 06/20/16 12/03/21 documented as of this encounter
--- OUTSIDE RECORDS SUMMARY | 2024-05-18 10:12 | XMS_ITS | Encounter Summary ---
Author Organization [facility] Address [address] [place] [address] Care Team Providers Care Dry Cans Operator Name Role Phone Jina Banda MD [...] on file Legal Sex Female 5:30 AM FREIGHT CHECKER Gender Identity Not on file Sexual Orientation Not on file documented as of this encounter Plan of Treatment Upcoming Encounters Date Type Department Care Team (Late st Contact Info) Description 09/08/2024 12:00 PM CDT Office Visit [facility] Heart and Vascular At [address] [place] [address] Randal Cooley MD [address] [place] [address] 2014 [place] [address] 10/27/2024 10:00 AM CDT Office Visit [facility] Heart and Vascular At [address] [place] [address] Randal Cooley MD [address] [place] [address] 2014 [place] [address] 10/28/2024 9:30 AM CDT Office Visit [facility] Urology [facility] [address] [facility] [address] [address] [place] [address] [place] [address] [facility] [address] [place] [address] documented as of this encounter Visit Diagnoses Diagnosis Pain in joint, pelvic region and thigh- Primary documented in this encounter Additional Health Concerns Infection Onset Date Last Indicated Resolved Time R/O COVID-19 11/08/2019 11/08/2019 11/11/2019 12:3 1 AM CDT R/O COVID-19 02/01/2020 02/01/2020 02/03/2020 2:00 AM FREIGHT CHECKER documented as of this encounter Care Teams Dry Cans Operator Relationship Specialty Start Date End Date Jina Banda MD PCP - General Internal Medicine 06/20/16 12/03/21 documented as of this encounter
--- OUTSIDE RECORDS SUMMARY | 2024-05-18 10:12 | XMS_ITS | Encounter Summary ---
Author Organization [facility] Address [address] [place] [address] Care Team Providers Care Dual Rate Dealer Name Role Phone Jina Banda MD Primary Care Provider Unav ailable Encounter Details Date Type Department Care Team (Late st Contact Info) Description 12/09/2006 Orders Only [facility] Internal Medicine - [facility] [address] [address] [facility] [address] [place] [address] Jina Banda MD NO ADDRESS ON FILE Social History Tobacco Use Types Packs/Day Years Used Date Smoking Tobacco: Never Assessed Comments Unknown Sex and Gender Information Value Date Recorded Sex Assigned at Not on file Legal Sex Female 5:30 AM PHOTOGRAVURE PRESS OPERATOR Gender Identity Not on file Sexual Orientation Not on file documented as of this encounter Progress Notes * Jina Banda MD - 07/30/2007 6:42 PM CDT TIME:09:45 am PATIENT`S HOME PHONE: PATIENT`S WORK PHONE: PATIENT`S INSURANCE: [facility] WHO TOOK THE CALL: Natasha Krishnan GENERAL INFORMATION PCP: marnie PHARMACY NUMBER: [phone] SECTION 1: REQUESTED ACTION demetrio 12/09/06 at [...] 09/08/2024 12:00 PM CDT Office Visit [facility] Heart and Vascular At [address] 2014 [place] [address] Randal Cooley MD [address] [place] [address] 2014 [place] [address] 10/27/2024 10:00 AM CDT Office Visit [facility] Heart and Vascular At [address] 2014 [place] [address] Randal Cooley MD [address] [place] [address] 2014 [place] [address] 10/28/2024 9:30 AM CDT Office Visit [facility] Urology [facility] [address] [phone] [place] [address] [phone] documented as of this encounter Visit Diagnoses Not on filedocumented in this encounter Additional Health Concerns Infection Onset Date Last Indicated Resolved Time R/O COVID-19 11/08/2019 11/08/2019 11/11/2019 12:3 1 AM CDT R/O COVID-19 02/01/2020 02/01/2020 02/03/2020 2:00 AM PHOTOGRAVURE PRESS OPERATOR documented as of this encounter Care Teams Dual Rate Dealer Relationship Specialty Start Date End Date Jina Banda MD PCP - General Internal Medicine 06/20/16 12/03/21 documented as of this encounter
--- OUTSIDE RECORDS SUMMARY | 2024-05-18 10:12 | XMS_ITS | Encounter Summary ---
Author Organization [facility] Address [address] [place] [address] Care Team Providers Care Treasury Manager Name Role Phone Jina Banda MD Primary Care Provider Unav ailable Encounter Details Date Type Department Care Team (Late st Contact Info) Description 08/02/2014 Nurse Triage Report [facility] ABSTRACTION Sheeba Sotomayor, RN [address] [address] Social History Tobacco Use Types Packs/Day Years Used Date Smoking Tobacco: Never Smokeless Tobacco: Never Alcohol Use Standard Drinks/Week Comments No 0 (1 standard drink = 0.6 oz pur e alcohol) Comments No Sex and Gender Information Value Date Recorded Sex Assigned at Not on file Legal Sex Female 5:30 AM INTERNATIONAL RECRUITER Gender Identity Not on file Sexual Orientation Not on file Occupation Industry Job Start Date Job End Date Not on file Not on file Not on file Not on file documented as of this encounter Progress Notes * Sheeba Sotomyaor RN - 08/02/2014 11:44 PM CDT CHART DOCUMENTATION ONLY Call Type: Triage Call Presenting Problem: , Josh Wei, She is having test in the ED and I'm checking on pre-auth . Report to Dr. Banda <<<<<<<< TRIAGE NOTE >>>>>>>> Triage Note: Heavy Duty Press Operator Sheeba Sotomayor added this note on Aug 02 2014 11:41PM: Spouse is in an [id number] ED and requesting information on pre-auth for [...] Description 09/08/2024 12:00 PM CDT Office Visit [facility] Heart and Vascular At [address] 2014 [place] [address] Randal Cooley MD [address] [place] [address] 2014 [place] [address] 10/27/2024 10:00 AM CDT Office Visit [facility] Heart and Vascular At [address] 2014 [place] [address] Randal Cooley MD [address] [place] [address] 2014 [place] [address] 10/28/2024 9:30 AM CDT Office Visit [facility] Urology [facility] [address] [facility] 260 [place] [address] [place] [address] [address] documented as of this encounter Visit Diagnoses Not on filedocumented in this encounter Additional Health Concerns Infection Onset Date Last Indicated Resolved Time R/O COVID-19 11/08/2019 11/08/2019 11/11/2019 12:3 1 AM CDT R/O COVID-19 02/01/2020 02/01/2020 02/03/2020 2:00 AM INTERNATIONAL RECRUITER documented as of this encounter Care Teams Treasury Manager Relationship Specialty Start Date End Date Jina Banda MD PCP - General Internal Medicine 06/20/16 12/03/21 documented as of this encounter
--- OUTSIDE RECORDS SUMMARY | 2024-05-18 10:13 | XMS_ITS | Encounter Summary ---
Author Organization [facility] Address [address] [place] [address] Care Team Providers Care Link Trainer Mechanic Name Role Phone Jina Banda MD Primary Care Provider Unav ailable Encounter Details Date Type Department Care Team (Late st Contact Info) Description 06/30/2007 Orders Only [facility] Internal Medicine - [facility] [address] [address] [facility] [address] [place] [address] Jina Banda MD NO ADDRESS ON FILE Social History Tobacco Use Types Packs/Day Years Used Date Smoking Tobacco: Never Assessed Comments Unknown Sex and Gender Information Value Date Recorded Sex Assigned at Not on file Legal Sex Female 5:30 AM WASHROOM OPERATOR Gender Identity Not on file Sexual Orientation Not on file documented as of this encounter Progress Notes * Jina Banda MD - 08/20/2007 10:30 AM CDT TIME:11:04 am PATIENT`S HOME PHONE: PATIENT`S WORK PHONE: PATIENT`S INSURANCE: [facility] WHO TOOK THE CALL: Vivi Rock A GENERAL INFORMATION PCP: inocencia PHARMACY NUMBER: [phone] SECTION 1: REQUESTED ACTION obertt 06/30/07 at 11:05 am: MEDICATION REQUEST: MEDICATIONS: PAROXETINE HCL ORAL TABLET 10 MG, 1/2 tab qd, 30 Dispensed, status: NEW PRESCRIPTION, 05/26/2007. Rx request says 1 tab QD? Last RF 05/21/07 RECEIVED FAXED REQUEST FROM THE PHARMACY [facility]. [place], [place]. DOCTOR`S RESPONSE: herlinda 06/30/07 at 12:45 [...] Description 09/08/2024 12:00 PM CDT Office Visit [facility] Heart and Vascular At [address] [place] [address] Randal Cooley MD [address] [place] [address] 2014 [place] [address] 10/27/2024 10:00 AM CDT Office Visit [facility] Heart and Vascular At [address] [place] [address] Randal Cooley MD [address] [place] [address] 2014 [place] [address] 10/28/2024 9:30 AM CDT Office Visit [facility] Urology [facility] [address] [facility] [address] [place] [address] [place] [address] [facility] 260 [place] [address] documented as of this encounter Visit Diagnoses Not on filedocumented in this encounter Additional Health Concerns Infection Onset Date Last Indicated Resolved Time R/O COVID-19 11/08/2019 11/08/2019 11/11/2019 12:3 1 AM CDT R/O COVID-19 02/01/2020 02/01/2020 02/03/2020 2:00 AM WASHROOM OPERATOR documented as of this encounter Care Teams Link Trainer Mechanic Relationship Specialty Start Date End Date Jina Banda MD PCP - General Internal Medicine 06/20/16 12/03/21 documented as of this encounter
--- OUTSIDE RECORDS SUMMARY | 2024-05-18 10:13 | XMS_ITS | Encounter Summary ---
Author Organization [facility] Address [address] [place] [address] Care Team Providers Care Director Of Critical Care Name Role Phone Jina Banda MD Primary Care Provider Unav ailable Encounter Details Date Type Department Care Team (Late st Contact Info) Description 05/26/2007 Outpatient Historical [facility] Internal Medicine - [facility] [address] [address] [facility] [address] [place] [address] Jina Banda MD NO ADDRESS ON FILE Acute Pharyngitis Social History Tobacco Use Types Packs/Day Years Used Date Smoking Tobacco: Never Assessed Comments Unknown Sex and Gender Information Value Date Recorded Sex Assigned at Not on file Legal Sex Female 5:30 AM WINE CONSULTANT Gender Identity Not on file Sexual Orientation Not on file documented as of this encounter Plan of Treatment Upcoming Encounters Date Type Department Care Team (Late st Contact Info) Description 09/08/2024 12:00 PM CDT Office Visit [facility] Heart and Vascular At [address] [place] [address] Randal Cooley MD [address] [place] [address] 2014 [place] [address] 10/27/2024 10:00 AM CDT Office Visit [facility] Heart and Vascular At [address] [place] [address] Randal Cooley MD [address] [place] [address] 2014 [place] [address] 10/28/2024 9:30 AM CDT Office Visit [facility] Urology [facility] [address] [place] [address] [place] [address] [place] [address] documented as of this encounter Procedures Procedure Name Priority Date/Time Associated Diagnosis Comments CBC WITH DIFFERENTIAL Routine 05/26/2007 4:10 PM CDT TSH Routine 05/26/2007 4:10 PM CDT documented in this encounter Results * (ABNORMAL) CBC WITH DIFFERENTIAL (05/26/2007 4:10 PM CDT) PLATELETS 321 140 - 350 K/uL [facility] HEMOGLOBIN 11.7(L) 11.8 - 14.8 g/dL [facility] RDW 14.4 11.5 - 14.5 % [facility] WBC 6.6 4.0 - 9.8 K/uL [facility] MCH 28.1 27.2 - 32.6 pg [facility] MPV 10.8 9.3 - 12.4 fL [facility] HEMATOCRIT 36.7 35.5 - 44.0 % [facility] RDW-STDEV 46.8 37.1 - 48.7 fL [facility] RBC 4.16 3.90 - 4.90 M/uL [facility] MCHC 31.9 31.5 - 35.5 % [facility] MCV 88.2 82.0 - 99.0 fL [facility] EOSINOPHILS 2 0 - 7 % [facility] EOSINOPHIL ABSOLUTE 0.13 0.00 - 0.70 K/uL [facility] LYMPHOCYTES 26 16 - 45 % [facility] LYMPHOCYTE ABSOLUTE 1.74 0.70 - 4.50 K/uL [facility] BASOPHILS 1 0 - 2 % [facility] BASOPHILS ABSOLUTE 0.04 0.00 - 0.20 K/uL [facility] MONOCYTES 8 3 - 13 % [facility] MONOCYTE ABSOLUTE 0.52 0.10 - 1.30 K/uL [facility] NEUTROPHILS 63 45 - 70 % [facility] NEUTROPHIL ABSOLUTE 4.18 1.90 - 7.00 K/uL [facility] Blood specimen (specimen) 05/26/2007 4:10 PM CDT 05/26/2007 8:29 PM CDT us Jina Banda MD HEMATOLOGY ORDERABLES Edite d Performing Organization Address City/State/[facility] Co de Phone Number INTERFACE SYSTEM Refer to clinic/hospital department [facility] [address] [place] [address] * (ABNORMAL) TSH (05/26/2007 4:10 PM CDT) TSH 10.66(H) 0.27 - 4.20 uU/mL [facility] Blood specimen (specimen) 05/26/2007 4:10 PM CDT 05/26/2007 8:29 PM CDT us Jina Banda MD CHEMISTRY ORDERABLES Final Result Performing Organization Address [facility] Co de Phone Number [facility] [address] [place] [place] [address] documented in this encounter Visit Diagnoses Diagnosis Acute pharyngitis documented in this encounter Additional Health Concerns Infection Onset Date Last Indicated Resolved Time R/O COVID-19 11/08/2019 11/08/2019 11/11/2019 12:3 1 AM CDT R/O COVID-19 02/01/2020 02/01/2020 02/03/2020 2:00 AM WINE CONSULTANT documented as of this encounter Care Teams Director Of Critical Care Relationship Specialty Start Date End Date Jina Banda MD PCP - General Internal Medicine 06/20/16 12/03/21 documented as of this encounter
--- OUTSIDE RECORDS SUMMARY | 2024-05-18 10:13 | XMS_ITS | Encounter Summary ---
Author Organization [facility] Address [address] [place] [address] Care Team Providers Care Hoisting Engineer Name Role Phone Jina Banda MD Primary Care Provider Unav ailable Encounter Details Date Type Department Care Team (Late st Contact Info) Description 06/03/2007 Orders Only [facility] Internal Medicine - [facility] [address] [id number] [facility] [address] [place] [address] Jina Banda MD NO ADDRESS ON FILE Social History Tobacco Use Types Packs/Day Years Used Date Smoking Tobacco: Never Assessed Comments Unknown Sex and Gender Information Value Date Recorded Sex Assigned at Not on file Legal Sex Female 5:30 AM ASSOCIATE PROFESSOR OF MUSICOLOGY Gender Identity Not on file Sexual Orientation Not on file documented as of this encounter Progress Notes * Jina Banda MD - 08/19/2007 7:26 PM CDT TIME:02:29 pm PATIENT`S HOME PHONE: PATIENT`S WORK PHONE: PATIENT`S INSURANCE: [facility] WHO TOOK THE CALL: Kecia Diego GENERAL INFORMATION PCP: inocencia. ALTERNATIVE PHONE NUMBER: [phone] WHO CALLED: Patient called. CURRENT ALLERGY LIST: GUAIFENESIN HUMIBID [facility] NUMBER: [phone] OTHER INFORMATION: Patient is not currently . [facility] At [address] [place] [address] Randal Cooley MD [address] [place] [address] [address] [place] [address] 10/27/2024 10:00 AM CDT Office Visit [facility] Heart and Vascular At [address] [place] [address] Randal Cooley MD [address] [place] [address] [address] [place] [address] 10/28/2024 9:30 AM CDT Office Visit [facility] Urology [facility] [address] [facility] [address] [place] [address] [place] [address] [facility] [address] [place] [address] documented as of this encounter Visit Diagnoses Not on filedocumented in this encounter Additional Health Concerns Infection Onset Date Last Indicated Resolved Time R/O COVID-19 11/08/2019 11/08/2019 11/11/2019 12:3 1 AM CDT R/O COVID-19 02/01/2020 02/01/2020 02/03/2020 2:00 AM ASSOCIATE PROFESSOR OF MUSICOLOGY documented as of this encounter Care Teams Hoisting Engineer Relationship Specialty Start Date End Date Jina Banda MD PCP - General Internal Medicine 06/20/16 12/03/21 documented as of this encounter
--- OUTSIDE RECORDS SUMMARY | 2024-05-18 10:13 | XMS_ITS | Encounter Summary ---
Author Organization [facility] Address [address] [place] [address] Care Team Providers Care Lead Laying And Gluing Machine Operator Name Role Phone Jina Banda MD Primary Care Provider Unav ailable Encounter Details Date Type Department Care Team (Late st Contact Info) Description 05/26/2007 Orders Only [facility] Internal Medicine - [facility] [address] [address] [facility] [address] [place] [address] Jina Banda MD NO ADDRESS ON FILE Social History Tobacco Use Types Packs/Day Years Used Date Smoking Tobacco: Never Assessed Comments Unknown Sex and Gender Information Value Date Recorded Sex Assigned at Not on file Legal Sex Female 5:30 AM UNIT REACTOR OPERATOR Gender Identity Not on file Sexual [...] splenomegaly. ASSESSMENT/PLAN: 244.9-HYPOTHYROIDISM LAB ORDERS: Order number: [id number] Test Ordered: TSH [id number] MEDICATIONS: Pt states that amoxicillin causes diarrhea but she tolerates this well. CECLOR ORAL CAPSULE CONVENTIONAL 250 MG, 1 Three Times A Day, 30 Dispensed, status: NEW PRESCRIPTION, 05/26/2007. LAB ORDERS: Order number: [id number] Test Ordered: CBC (INCLUDES DIFF/PLT) 6399 SPECIALTY REFERRAL: GASTROENTEROLOGY Dr. Thelma Haile ph: [phone] fax: [phone].for further evaluation of intermittent abdominal pain. RETURN VISIT : Instructed to call if not improving. Electronically Signed by: Jina Banda MD on Saturday, May 26, 2007 documented in this encounter Plan of Treatment Upcoming Encounters Date Type Department Care Team (Late st Contact Info) Description 09/08/2024 12:00 PM CDT Office Visit [facility] Heart and Vascular At [address] [place] [address] Randal Cooley MD [address] [place] [address] [address] [place] [address] 10/27/2024 10:00 AM CDT Office Visit [facility] Heart [facility] At [facility] [address] [facility] [address] [place] [address] Randal Cooley MD [address] [facility] [address] [place] [address] 10/28/2024 9:30 AM CDT Office Visit [facility] Urology [facility] [address] [facility] [address] [place] [address] [place] [address] [facility] [address] [place] [address] documented as of this encounter Visit Diagnoses Not on filedocumented in this encounter Additional Health Concerns Infection Onset Date Last Indicated Resolved Time R/O COVID-19 11/08/2019 11/08/2019 11/11/2019 12:3 1 AM CDT R/O COVID-19 02/01/2020 02/01/2020 02/03/2020 2:00 AM UNIT REACTOR OPERATOR documented as of this encounter Care Teams Lead Laying And Gluing Machine Operator Relationship Specialty Start Date End Date Jina Banda MD PCP - General Internal Medicine 06/20/16 12/03/21 documented as of this encounter
--- OUTSIDE RECORDS SUMMARY | 2024-05-18 10:13 | XMS_ITS | Encounter Summary ---
Author Organization [facility] Address [address] [place] [address] Care Team Providers Care Private Branch Exchange Installer Name Role Phone Jina Banda MD Primary Care Provider Unav ailable Encounter Details Date Type Department Care Team (Late st Contact Info) Description 05/26/2007 Outpatient Historical [facility] Internal Medicine - [facility] [id number] [place] [address] [address] [place] [address] Jina Banda MD NO ADDRESS ON FILE Social History Tobacco Use Types Packs/Day Years Used Date Smoking Tobacco: Never Assessed Comments Unknown Sex and Gender Information Value Date Recorded Sex Assigned at Not on file Legal Sex Female 5:30 AM UNIFORMER Gender Identity Not on file Sexual Orientation Not on file documented as of this encounter Plan of Treatment Upcoming Encounters Date Type Department Care Team (Late st Contact Info) Description 09/08/2024 12:00 PM CDT Office Visit [facility] Heart and Vascular At [address] [place] [address] Randal Cooley MD [address] [place] [address] [address] [place] [address] 10/27/2024 10:00 AM CDT Office Visit [facility] Heart and Vascular At [address] [place] [address] Randal Cooley MD [address] [place] [address] [address] [place] [address] 10/28/2024 9:30 AM CDT Office Visit [facility] Urology [facility] [address] [facility] [address] [facility] [address] [place] [address] [place] [address] [facility] [address] [facility] [address] [place] [address] documented as of this encounter Visit Diagnoses Not on filedocumented in this encounter Additional Health Concerns Infection Onset Date Last Indicated Resolved Time R/O COVID-19 11/08/2019 11/08/2019 11/11/2019 12:3 1 AM CDT R/O COVID-19 02/01/2020 02/01/2020 02/03/2020 2:00 AM UNIFORMER documented as of this encounter Care Teams Private Branch Exchange Installer Relationship Specialty Start Date End Date Jina Banda MD PCP - General Internal Medicine 06/20/16 12/03/21 documented as of this encounter
--- OUTSIDE RECORDS SUMMARY | 2024-05-18 10:13 | XMS_ITS | Encounter Summary ---
Author Organization [facility] Address [address] [place] [address] Care Team Providers Care Sugar Plantation Manager Name Role Phone Jina Banda MD Primary Care Provider Unav ailable Encounter Details Date Type Department Care Team (Late st Contact Info) Description 06/04/2007 Orders Only [facility] Internal Medicine - [facility] [address] [address] [facility] [address] [place] [address] Jina Banda MD NO ADDRESS ON FILE Social History Tobacco Use Types Packs/Day Years Used Date Smoking Tobacco: Never Assessed Comments Unknown Sex and Gender Information Value Date Recorded Sex Assigned at Not on file Legal Sex Female 5:30 AM MICROELECTRONICS ENGINEER Gender Identity Not on file Sexual Orientation Not on file documented as of this encounter Plan of Treatment Upcoming Encounters Date Type Department Care Team (Late st Contact Info) Description 09/08/2024 12:00 PM CDT Office Visit [facility] Heart and Vascular At [address] [place] [address] Randal Cooley MD [address] [place] [address] [address] [place] [address] 10/27/2024 10:00 AM CDT Office Visit [facility] Heart and Vascular At [address] [place] [address] Randal Cooley MD [address] [place] [address] [address] [place] [address] 10/28/2024 9:30 AM CDT Office Visit [facility] Urology [facility] [address] [facility] [address] [facility] [address] [place] [address] [place] [address] [facility] [address] [facility] [address] [place] [address] documented as of this encounter Visit Diagnoses Not on filedocumented in this encounter Additional Health Concerns Infection Onset Date Last Indicated Resolved Time R/O COVID-19 11/08/2019 11/08/2019 11/11/2019 12:3 1 AM CDT R/O COVID-19 02/01/2020 02/01/2020 02/03/2020 2:00 AM MICROELECTRONICS ENGINEER documented as of this encounter Care Teams Sugar Plantation Manager Relationship Specialty Start Date End Date Jina Banda MD PCP - General Internal Medicine 06/20/16 12/03/21 documented as of this encounter
--- OUTSIDE RECORDS SUMMARY | 2024-05-18 10:13 | XMS_ITS | Encounter Summary ---
Author Organization [facility] Address [address] [place] [address] Care Team Providers Care Laborer Prestressed Concrete Name Role Phone Jina Banda MD Primary Care Provider Unav ailable Encounter Details Date Type Department Care Team (Late st Contact Info) Description 05/26/2007 Outpatient Historical [facility] Internal Medicine - [facility] [id number] [place] [address] [address] [place] [address] Jina Banda MD NO ADDRESS ON FILE Social History Tobacco Use Types Packs/Day Years Used Date Smoking Tobacco: Never Assessed Comments Unknown Sex and Gender Information Value Date Recorded Sex Assigned at Not on file Legal Sex Female 5:30 AM INSIDE SALES Gender Identity Not on file Sexual Orientation Not on file documented as of this encounter Plan of Treatment Upcoming Encounters Date Type Department Care Team (Late st Contact Info) Description 09/08/2024 12:00 PM CDT Office Visit [facility] Heart and Vascular At [address] [place] [address] Randal Cooley MD [address] [place] [address] 2014 [place] [address] 10/27/2024 10:00 AM CDT Office Visit [facility] Heart and Vascular At [address] [place] [address] Randal Cooley MD [address] [place] [address] 2014 [place] [address] 10/28/2024 9:30 AM CDT Office Visit [facility] Urology [facility] [address] [facility] [facility] [address] [facility] [address] [place] [address] [place] [address] [facility] [address] [facility] [address] [place] [address] documented as of this encounter Visit Diagnoses Not on filedocumented in this encounter Additional Health Concerns Infection Onset Date Last Indicated Resolved Time R/O COVID-19 11/08/2019 11/08/2019 11/11/2019 12:3 1 AM CDT R/O COVID-19 02/01/2020 02/01/2020 02/03/2020 2:00 AM INSIDE SALES documented as of this encounter Care Teams Laborer Prestressed Concrete Relationship Specialty Start Date End Date Jina Banda MD PCP - General Internal Medicine 06/20/16 12/03/21 documented as of this encounter
[2024-05-18 10:16] VITALS: BP 176/90; PULSE 75; RESP 17; O2SAT 99
[2024-05-18 10:21] LABS: Influenza A QL RT-PCR Negative (Negative); Influenza B QL RT-PCR Negative (Negative); RSV RNA, RT-PCR Negative (Negative); SARS-CoV-2 RNA PCR Positive (Negative)
[2024-05-18] MEDS: MECLIZINE HCL 25 MG TABLET PO (11:25)
[2024-05-18] MEDS: diphenhydrAMINE HCl INJ 50 MG/ML VIAL 25 MG IV PUSH (11:25)
[2024-05-18] MEDS: METOCLOPRAMIDE HCL INJ 10 MG/2 ML VIAL IV PUSH (11:25)
[2024-05-18 11:30] VITALS: BP 151/92; PULSE 102; RESP 17; TEMP 37.1; O2SAT 100
[2024-05-18 13:24] VITALS: BP 151/92; PULSE 85; RESP 16; TEMP 37.1; O2SAT 95
== END 2024-05-18 13:25 | disposition home or self-care (01) ==
PROVIDERS: Emergency Provider Emergency Medicine; PCP Internal Medicine
DX: U07.1 COVID-19 (principal); R42 Dizziness and giddiness; R11.2 Nausea with vomiting, unspecified; I25.10 Atherosclerotic heart disease of native coronary artery without angina pectoris; E78.5 Hyperlipidemia, unspecified; E03.9 Hypothyroidism, unspecified; K58.9 Irritable bowel syndrome, unspecified; Z95.5 Presence of coronary angioplasty implant and graft; Z87.01 Personal history of pneumonia (recurrent); Z86.16 Personal history of COVID-19; Z87.440 Personal history of urinary (tract) infections
CPT/HCPCS: 36415; 70450; 80053; 81003; 83690; 85025; 87637; 96361; 96374; 96375; 99284; A9270; J1200; J2405; J2765; J7120

== ENCOUNTER 2024-08-09 11:27 | Outpatient (CLI) | payer MEDICARE, SELFPAY ==
--- OUTSIDE RECORDS SUMMARY | 2024-08-09 11:33 | XMS_ITS | Clinical Summary ---
Author Organization [employer] Fernanda Peterson Address [address] [place] [address] Phone Care Team Providers Care Bakery Team Leader Name Role Phone Unavailable Primary Care [...] mouth daily. Active ALPRAZolam (XANAX) 0.25 mg tabletIndications:Gener alized anxiety disorder TAKE 1 TABLET BY MOUTH EVERY NIGHT AT BEDTIME NEEDED 30 Tablet 021 Active levothyroxine 88 mcg tabletIndications:Hypot hyroidism, unspecified type TAKE 1 TABLET(88 MCG) BY MOUTH DAILY 30 Tablet 021 Active diphenoxylate-atropine 2.5 mg-0.025 mg tablet Take 2 Tablets by mouth 2 times daily. 023 Active estradioL (ESTRACE) 0.01% (0.1 mg/g) vaginal cream Insert vaginally daily. 42.5 Gram 6 023 Active venlafaxine (EFFEXOR XR) 75 mg Extended Release 24 hour capsule Take 75 mg by mouth daily. 023 Active lisinopriL (PRINIVIL) 20 mg tablet Take 40 mg by mouth daily. Active albuterol sulfate HFA 90 mcg/actuation aerosol [...] ONCE DAILY AT BEDTIME 90 Tablet 3 Active oxyBUTYnin (DITROPAN XL) 10 mg Extended Release 24 hour tablet Take 1 Tablet (10 mg) by mouth daily. 30 Tablet 6 025 Active Additional Information Patient not taking.Reported on 07/07/2024 nitrofurantoin (MACROBID) 100 mg capsule Take 1 Capsule (100 mg) by mouth daily in the morning. 30 Capsule 10 025 Active metoprolol tartrate (LOPRESSOR) 25 mg tablet Take 1/2 (one-half) tablet by mouth twice daily 90 Tablet Active estriol 0.5/estradiol 0.1 mg vaginal suppository compound Insert 1 suppository vaginally at bedtime nightly for 2 weeks, then twice weekly thereafter. 34 Suppository 6 025 Active Active Problems Patient Care Coordination No te [...] lumbar 09/11/19 Coronary artery disease invo lving jena coronary artery of jena heart without angina pectoris 03/04/2020 Chronic insomnia [...] Encounters Date Type Department Care Team Description 08/09/2024 7:53 AM CDT [facility] [id number] [place] [phone] Donnie Centeno MD Arrived 08/09/2024 7:47 AM CDT Hospital En[facility] [address] [place] [address] Donnie Centeno MD Arrived 08/03/2024 External Device Data [facility] ABSTRACTION Provider, Abstract 08/02/2024 External Device Data [facility] ABSTRACTION Provider, Abstract 07/15/2024 1:20 PM CDT - 07/15/2024 11:59 PM CDT Hospital Encounter [facility] [id number] [place] [phone] Annmarie Santamaria PA Discharge Disposition: Home or Self Care 07/15/2024 1:19 PM CDT - 07/15/2024 11:59 PM CDT Hospital En[facility] [address] [place] [phone] Annmarie Santamaria PA Discharge Disposition: Home or Self Care 07/15/2024 12:30 PM CDT Office Visit 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 [address] [facility] [address] [place] [phone] Victoria Mcdonald CMA Greater trochanteric bursitis of both hips (Primary Dx) 07/07/2024 10:20 AM CDT Office Visit [facility] [address] [place] [address] Garo Chandler MD Well woman exam with routine gynecological exam (Primary Dx); Encounter for screening mammogram for breast cancer 07/07/2024 Telephone [facility] [address] [place] [address] Michelle Goodrich, sports journalist Review 06/28/2024 External Device Data [facility] ABSTRACTION Provider, Abstract 06/01/2024 External Device Data [facility] ABSTRACTION Provider, Abstract 05/21/2024 External Device Data [facility] ABSTRACTION Provider, Abstract 05/20/2024 External Device Data [facility] ABSTRACTION Provider, Abstract 05/19/2024 Refill [facility] [address] [place] [phone] Randal Cooley MD 05/18/2024 Refill [facility] [address] [place] [phone] Randal Cooley MD 05/17/2024 External Device Data [facility] ABSTRACTION Provider, Abstract from Last 3 Months Immunizations Immunization Administration [...] Depression Brother 02/2012 Heart Disease Brother 02/2012 [place], COPD - 1st [place] 59 Hypertension Brother 02/2012 Other Brother 02/2012 COPD - smoker Healthy Daughter Amber West ulcerative co litis Heart Attack Father Sahil Taylor Heart Disease Father Sahil Taylor Heart Surgery Father Sahil Taylor High Cholesterol Father Sahil Taylor Hypertension Father Sahil Taylor Other Father Sahil Taylor copd Heart Disease Mother Wilhoit Taylor Hypertension Mother Wilhoit Taylor Kidney Disease Mother Wilhoit Taylor Other Mother Wilhoit Taylor Respiratory Disease Mother Wilhoit Taylor Stroke Mother Wilhoit Taylor Depression Sister Xiomy Fair Healthy Sister [...] on file Legal Sex Female 5:30 AM ONLINE MARKETING DIRECTOR Gender Identity Not on file Sexual Orientation Not on file Occupation Industry Job Start Date Job End Date Not on file Not on file Not on file Not on file Last Filed Vital Signs Vital Sign Reading Time Taken Comments Blood Pressure 134/70 08/09/2024 8:17 AM CDT Pulse 60 08/09/2024 8:17 AM CDT Temperature 36.5 C (97.7 F) 02/23/2020 9:57 AM ONLINE MARKETING DIRECTOR Respiratory Rate 18 08/09/2024 8:17 AM CDT Oxygen Saturation 98% 08/09/2024 8:17 AM CDT Inhaled Oxygen Concentration - - Weight 69.4 kg (153 lb) 07/15/2024 11:00 AM CDT Height 154.9 cm (5' 1) 07/15/2024 11:00 AM CDT Body Mass Index 28.91 07/15/2024 11:00 AM CDT Plan of Treatment Upcoming Encounters Date Type Department Care Team (Late st Contact Info) Description 09/08/2024 12:00 PM CDT Office Visit [facility] [address] [place] [phone] Randal Cooley MD [address] [place] [address] [address] [place] [address] 10/27/2024 10:00 AM CDT Office Visit [facility] [address] [place] [address] Randal Cooley MD [address] [place] [address] [address] [place] [address] 10/28/2024 9:30 AM CDT Office Visit [facility] [address] [facility] [address] [place] [address] [place] [address] [facility] [address] [place] [address] Health Maintenance Due Date Last Done Comments Traditional Medicare (ACO) A nnual Wellness Visit 1979 ZOSTER VACCINE (1 of 2) 1977 FIT-DNA Q 3 years 12/26/2003 Flex Sig/CT Colonography Q 5 years 12/26/2003 Pre-Diabetes and Diabetes Screening 04/29/2011 04/29/2008 FIT/FOBT Q 1 year 12/08/2017 12/08/2016 RSV VACCINE (60+ or ) (1 - Risk 60-74 years 1-dose series) 2018 DTAP/TDAP/TD VACCINES (2 - T d or Tdap) 03/25/2023 03/25/2013, 02/25/2006, 04/16/2003 BREAST CANCER SCREENING 04/28/2023 04/28/19 23, 05/23/2020, 05/23/2020, Additional history exists INFLUENZA VACCINE (#1) 2023 3, 12/17/2020, 01/24/2020, Additional history exists OSTEOPOROSIS SCREENING 12/26/2023 COLORECTAL SCREENING 01/24/2032 01/23/2022, 01/23/2022, 09/08/2018, Additional history exists Colorectal Cancer Screening 01/24/2032 PNEUMOCOCCAL VACCINE 50+ YEARS Completed 0 04/18/2024, 10/17/2019, 08/19/2019 Medical Devices Implanted Type Area Twill Cutter Device Identifier Shelf Expiration Date Model / Serial / Lot Mesh [facility]6 - [id number] Implanted:Qty : 1 on 08/06/2016 by Naima Guadarrama MD at [facility] Mesh Right: Abdomen [employer] [id number] 11/13/2017 [facility] / / [id number] Stent Procedures Procedure Name Priority Date/Time Associated Diagnosis Comments XR FLUORO NEEDLE GUIDANCE SPINE Routine 08/09/2024 8:10 AM CDT XR LUMBAR SPINE 4+ VW Routine 07/15/2024 1:39 PM CDT Chronic bilateral low back pain with left-sided sciatica Degeneration of intervertebral disc of lumbar region with discogenic back pain and lower extremity pain XR HIPS BILATERAL 3-4 VIEWS Routine 07/15/2024 1:39 PM CDT Greater trochanteric bursitis of both hips CERV/VAG CYTO SCREEN PAP W/O HPV Routine 07/07/2024 12:00 AM CDT Well woman exam with routine gynecological exam MAMMO SCREEN BILAT W OR WO CAD Routine 04/28/2022 COLONOSCOPY REPORT 09/08/2018 7: 40 AM CDT OCCULT BLOOD IMMUNOASSAY, COLORECTAL SCREEN Routine 12/08/2016 8:58 PM CDT Chronic anemia GLUCOSE FASTING Routine 04/29/2008 8:10 AM ONLINE MARKETING DIRECTOR Lipid Screening from Last 3 Months or Most Recently Relevant to Health Maintenance Results * XR FLUORO NEEDLE GUIDANCE SPINE (08/09/2024 8:10 AM CDT) Narrative [facility] - 08/09/2024 8:10 AM CDT Order information only. Exam was auto-finalized. us Donnie Centeno MD DIAGNOSTIC IMAGING ORDERABLES F inal Result [facility] CLIA# [id number] [facility] [address] [place] [address] * XR LUMBAR SPINE 4+ VW (07/15/2024 1:39 PM CDT) Anatomical Region Laterality Modality Spine Computed Radiogr aphy 07/15/2024 1:40 PM CDT Impressions 07/15/2024 1:48 PM CDT IMPRESSION: 1. Mild spondylosis. DICTATION LOCATION: [address] Narrative 07/15/2024 1:48 PM CDT XR LUMBAR SPINE 4+ VW DATE: 07/15/2024 1:39 PM HISTORY: Chronic back pain. FINDINGS: Vertebral body heights are normal. No significant intervertebral disc space narrowing is minimal facet arthropathy present. No change in alignment is present with flexion or extension. Procedure Note Wilfred Phelps MD - 07/15/2024 XR LUMBAR SPINE 4+ VW DATE: 07/15/2024 1:39 PM HISTORY: Chronic back pain. FINDINGS: Vertebral body heights are normal. No significant intervertebral disc space narrowing is minimal facet arthropathy present. No change in alignment is present with flexion or extension. IMPRESSION: 1. Mild spondylosis. DICTATION LOCATION: [address] us Annmarie Rosalio PA DIAGNOSTIC IMAGING ORDERABLES Fi nal Result * XR HIPS BILATERAL 3-4 VIEWS (07/15/2024 1:39 PM CDT) Anatomical Region Laterality Modality Lower Extremity Computed Radiogr aphy 07/15/2024 1:39 PM CDT Narrative 07/15/2024 1:46 PM CDT EXAMINATION: XR HIPS BILATERAL 3-4 VIEWS DATE: 07/15/2024 1:39 PM HISTORY: See Diagnosis,Greater trochanteric bursitis of both hips; Greater trochanteric bursitis of both hips FINDINGS: Very small right femoral head ring osteophytes are present. The left hip is normal without fracture, dislocation, arthropathy, or focal bone lesion. DICTATION LOCATION: [address] Procedure Note Crow Marin MD - 07/15/2024 EXAMINATION: XR HIPS BILATERAL 3-4 VIEWS DATE: 07/15/2024 1:39 PM HISTORY: See Diagnosis,Greater trochanteric bursitis of both hips; Greater trochanteric bursitis of both hips FINDINGS: Very small right femoral head ring osteophytes are present. The left hip is normal without fracture, dislocation, arthropathy, or focal bone lesion. DICTATION LOCATION: Location [address] [place] [address] us Annmarie Rosalio PA DIAGNOSTIC IMAGING ORDERABLES Fi nal Result * CERV/VAG CYTO SCREEN PAP W/O HPV (07/07/2024 12:00 AM CDT) CLINICAL INFORMATION Jackie Eckert Comment:None given LAST MENSTRUAL PERIOD Jackie Eckert Comment:NONE GIVEN PREV PAP: Jackie Eckert Comment:NONE GIVEN PREV BX: Jackie Eckert Comment:NONE GIVEN SOURCE Jackie Eckert Comment:ENDOCERVIX ADEQUACY: Jackie Eckert Comment: Satisfactory for evaluation. Endocervical/transformation zone component present. PAP INTERP Jackie Eckert Comment: Cytology Results: Negative for intraepithelial lesion or malignancy. COMMENT (PAP TEST) Q uest Jose De Jesus Eckert Comment: This Pap test has been evaluated with computer assisted technology. MOLD BREAKER: Jerome Eckert Comment: SORIA, CT(ASCP) CT Screening location: [facility] Administration [place] [address] Jose De Jesus Eckert Comment: EXPLANATORY NOTE: The Pap is a screening test for cervical cancer. It is not a diagnostic test and is subject to false negative and false positive results. It is most reliable when a satisfactory sample, regularly obtained, is submitted with relevant clinical findings and history, and when the Pap result is evaluated along with historic and current clinical information. Test Performed at: [place] [address] [address] [place] [address] Racheal-Nicholeu Thi Vo Genital SWAB OF ENDOCERVIX / Unknown 07/07/2024 07/08/2024 9:33 PM CDT Result [facility] Garo Chandler MD PATHOLOGY/CYTOLOGY ORDERABL ES Final Result [facility] [phone] [place] [address] [address] [place] [address] * MAMMO SCREEN BILAT W OR WO CAD (04/28/2022) Anatomical Region Laterality Modality Breast Bilateral Mammography Garo Chandler MD MAMMO ORDERABLES Edited Res ult - Final * COLONOSCOPY REPORT (09/08/2018 7:40 AM CDT) Narrative Procedure Note Felix Webber MD - 09/08/2018 7:39 AM CDT [facility] Endoscopy Patient Name: Ely Wei Procedure Date: [...] signed electronically. Number of Addenda: [address]; [place] [address] Felix Webber MD GI PROCEDURE ORDERABLES Final Re sult * OCCULT BLOOD IMMUNOASSAY, COLORECTAL SCREEN (12/08/2016 8:58 PM CDT) OCCULT BLOOD, STOOL Negative Negative 12/09/2016 10:07 PM CDT [facility] Stool STOOL SPECIMEN / Unknown Collection / Unknown 12/08/2016 8:58 PM CDT 12/09/2016 8:59 PM CDT Jina Banda MD BODY FLUIDS AND STOOLS [place] l Result [facility] CLIA# [id number] [address] [place] [address] * GLUCOSE FASTING (04/29/2008 8:10 AM ONLINE MARKETING DIRECTOR) GLUCOSE FASTING 88 65 - 99 mg/dL [facility] Blood specimen (specimen) 04/29/2008 8:10 AM ONLINE MARKETING DIRECTOR 04/29/2008 2:45 PM ONLINE MARKETING DIRECTOR Jina Banda MD CHEMISTRY ORDERABLES Final Result INTERFACE SYSTEM Refer to clinic/hospital department [facility] CLIA# [id number] [address] [place] [address] from Last 3 Months or Most Recently Relevant to Health Maintenance Insurance MEDICARE PART A AND B HUMAN MEDICARE SUPPLEMENT RX [employer] RX Member Subscriber Plan / Payer (Ef fective 2023-Present) Name:Ely Wei Relation to Subscriber:Self Name:Ely Wei Payer ID:Not on file Group ID:[id number] Type:RX Medicare Part D Address: [address] [place] [address] [employer] [address] Medicare Part B Advance Directives For more information, please contact: [phone] * Full Code (Latest Code Status on [...]
--- OUTSIDE RECORDS SUMMARY | 2024-08-09 11:33 | XMS_ITS | Encounter Summary ---
Author Organization [facility] Address [address] [place] [address] Care Team Providers Care Steamfitter Name Role Phone Jina Banda MD Primary Care Provider Unav ailable Encounter Details Date Type Department Care Team (Late st Contact Info) Description 02/26/2015 Nurse Triage Report [facility] Miladis Celestin, RN [address] [place] [address] Social History Tobacco Use Types Packs/Day Years Used Date Smoking Tobacco: Never Smokeless Tobacco: Never Alcohol Use Standard Drinks/Week Comments No 0 (1 standard drink = 0.6 oz pur e alcohol) Comments No Sex and Gender Information Value Date Recorded Sex Assigned at Not on file Legal Sex Female 5:30 AM SENIOR TECHNICAL TRAINER Gender Identity Not on file Sexual Orientation [...] Reviewed <<<<<<<< TRIAGE NOTE >>>>>>>> Triage Note: Technical Sales Director Eleni Celestin added this note on Feb 26 2015 9:36PM: will call office in the morning is patient is not better. <<<<<<<< TRIAGE/OUTCOME >>>>>>>> Guideline Title: Nausea or Vomiting Recommended Disposition: Provide Home/Self Care Original Inclination: Self Management Intended Action: Self Management Physician Contacted: No All other situations ? YES OR TECHNICAL TRAINER documented in this encounter Plan of Treatment Upcoming Encounters Date Type Department Care Team (Late st Contact Info) Description 09/08/2024 12:00 PM CDT Office Visit [facility] [address] [place] [address] Randal Cooley MD [address] [place] [address] [address] [place] [address] 10/27/2024 10:00 AM CDT Office Visit [facility] [address] [place] [address] Randal Cooley MD [address] [place] [address] [address] [place] [address] 10/28/2024 9:30 AM CDT Office Visit [facility] [address] [place] [address] [place] [address] [facility] [address] [place] [address] documented as of this encounter Visit Diagnoses Not on filedocumented in this encounter Additional Health Concerns Infection Onset Date Last Indicated Resolved Time R/O COVID-19 11/08/2019 11/08/2019 11/11/2019 12:3 1 AM CDT R/O COVID-19 02/01/2020 02/01/2020 02/03/2020 2:00 AM SENIOR TECHNICAL TRAINER documented as of this encounter Care Teams Steamfitter Relationship Specialty Start Date End Date Jina Banda MD PCP - General Internal Medicine 06/20/16 12/03/21 documented as of this encounter
--- OUTSIDE RECORDS SUMMARY | 2024-08-09 11:33 | XMS_ITS | Encounter Summary ---
Author Organization [facility] Address [address] [place] [address] Phone Care Team Providers Care Human Resources Trainee Name Role Phone Mervin Jay DO Primary Care Provider [phone] Encounter Details Date Type Department Care Team (Late st Contact Info) Description 09/22/2018 Orders Only [facility] Scanning, Provider Social History Tobacco Use Types Packs/Day Years Used Date Smoking Tobacco: Never Assessed Comments Unknown Sex and Gender Information Value Date Recorded Sex Assigned at Not on file Legal Sex Female 6:45 PM MRI SPECIAL PROCEDURES TECHNOLOGIST Gender Identity Not on file Sexual Orientation [...] on filedocumented in this encounter Care Teams Human Resources Trainee Relationship Specialty Start Date End Date Mervin Jay DO PCP - General Internal Medicine 10/21/21 documented as of this encounter
--- OUTSIDE RECORDS SUMMARY | 2024-08-09 11:33 | XMS_ITS | Encounter Summary ---
Author Organization [facility] Address [address] [place] [address] Care Team Providers Care Pen And Pencil Repairer Name Role Phone Unavailable Primary Care Provider Unavailabl e Encounter Details Date Type Department Care Team (Late Contact Info) Description 08/09/2024 7:53 AM CDT Hospital Encounter [facility] [address] [place] [address] [place] [address] [facility] [address] [place] [address] Arrived Social History Tobacco Use Types Packs/Day Years Used Date Smoking Tobacco: Never Smokeless Tobacco: Never Alcohol Use Standard Drinks/Week Comments Not Currently 0 (1 standard drink = 0.6 oz pur e alcohol) Comments No Sex and Gender Information Value Date Recorded Sex Assigned at Not on file Legal Sex Female 5:30 AM OPERATIONS AND MAINTENANCE MANAGER Gender Identity Not on file Sexual [...] [facility] At [address] [place] [address] Randal Cooley MD [address] [place] [address] [address] [place] [address] 10/27/2024 10:00 AM CDT Office Visit [facility] [address] [facility] [address] [place] [address] Randal Cooley MD [address] [facility] [address] [place] [address] 10/28/2024 9:30 AM CDT Office Visit [facility] [address] [place] [address] [place] [address] [facility] [address] [place] [address] documented as of this encounter Procedures Procedure Name Priority Date/Time Associated Diagnosis Comments XR FLUORO NEEDLE GUIDANCE SPINE Routine 08/09/2024 8:10 AM CDT documented in this encounter Results * XR FLUORO NEEDLE GUIDANCE SPINE (08/09/2024 8:10 AM CDT) Narrative [facility] - 08/09/2024 8:10 AM CDT Order information only. Exam was auto-finalized. us Donnie Centeno MD DIAGNOSTIC IMAGING ORDERABLES F inal Result [facility] CLIA# [id number] [address] [place] [address] documented in this encounter Visit Diagnoses Not on filedocumented in this encounter
--- OUTSIDE RECORDS SUMMARY | 2024-08-09 11:33 | XMS_ITS | Encounter Summary ---
Author Organization [facility] Address [address] [place] [address] Phone Care Team Providers Care Aviation Support Equipment Repairer Name Role Phone Mervin Jay DO Primary Care Provider [phone]- [phone] Encounter Details Date Type Department Care Team (Late st Contact Info) Description 02/23/2019 Orders Only [facility] Scanning, Provider Social History Tobacco Use Types Packs/Day Years Used Date Smoking Tobacco: Never Assessed Comments Unknown Sex and Gender Information Value Date Recorded Sex Assigned at Not on file Legal Sex Female 6:45 PM EDUCATION DEAN Gender Identity Not on file Sexual Orientation [...] on filedocumented in this encounter Care Teams Aviation Support Equipment Repairer Relationship Specialty Start Date End Date Mervin Jay DO PCP - General Internal Medicine 10/21/21 documented as of this encounter
--- OUTSIDE RECORDS SUMMARY | 2024-08-09 11:33 | XMS_ITS | Encounter Summary ---
Author Organization [facility] Address [address] [place] [address] Care Team Providers Care Production Maintenance Technician Name Role Phone Jina Banda MD Primary Care Provider Unav ailable Encounter Details Date Type Department Care Team (Late st Contact Info) Description 03/14/2015 Chart Note [facility] [employer] [address] [place] [phone] Briseida Solano, Physical Therapist Social History Tobacco Use Types Packs/Day Years Used Date Smoking Tobacco: Never Smokeless Tobacco: Never Alcohol Use Standard Drinks/Week Comments No 0 (1 standard drink = 0.6 oz pur e alcohol) Comments No Sex and Gender Information Value Date Recorded Sex Assigned at Not on file Legal Sex Female 5:30 AM GRAIN ELEVATOR CLERK Gender Identity Not on file Sexual [...] in order to assist with completion of supervisor wet room. met 2. Patient to be able to [...] this referral. Briseida Solano, PT, DPT, OCS PR License No.: [id number] [facility] Services [address] [place] [address] (phone) [phone] (fax) N ELEVATOR CLERK documented in this encounter Plan of Treatment Upcoming Encounters Date Type Department Care Team (Late st Contact Info) Description 09/08/2024 12:00 PM CDT Office Visit [facility] Heart and Vascular At [address] [place] [address] Randal Cooley MD [address] [place] [address] 2014 [place] [address] 10/27/2024 10:00 AM CDT Office Visit [facility] Heart and Vascular At [address] [place] [address] Randal Cooley MD [address] [place] [address] 2014 [place] [address] 10/28/2024 9:30 AM CDT Office Visit [facility] [address] [facility] [address] [phone] [place] [address] [address] documented as of this encounter Visit Diagnoses Not on filedocumented in this encounter Additional Health Concerns Infection Onset Date Last Indicated Resolved Time R/O COVID-19 11/08/2019 11/08/2019 11/11/2019 12:3 1 AM CDT R/O COVID-19 02/01/2020 02/01/2020 02/03/2020 2:00 AM GRAIN ELEVATOR CLERK documented as of this encounter Care Teams Production Maintenance Technician Relationship Specialty Start Date End Date Jina Banda MD PCP - General Internal Medicine 06/20/16 12/03/21 documented as of this encounter
--- OUTSIDE RECORDS SUMMARY | 2024-08-09 11:33 | XMS_ITS | Encounter Summary ---
Author Organization [facility] Address [address] [place] [address] Care Team Providers Care Chip Tuner Name Role Phone Unavailable Primary Care Provider Unavailabl e Reason for Referral * Outpatient Services (Routine) - Closed Specialty Diagnoses / Procedures Referred By Contac t Referred To Contact Diagnoses Greater trochanteric bursitis of both hips Procedures PAIN PROCEDURE WY ARTHROCENTESIS ASPIR&/INJ MAJOR JT/BURSA W/O US CHG FLUOROSCOPIC GUIDANCE NEEDLE PLACEMENT ADD ON WY INJ FOR SACROILIAC JT ANESTH Donnie Centeno [place] [id number] [place] [address] Phone: tel: fax: Referral ID Status Reason Start Date Expiration Date Visits Re quested Visits Authorized [id number] Closed 07/23/2024 09/09/2024 1 1 Reason for Visit * Outpatient Services (Routine) - Closed Specialty Diagnoses / Procedures Referred By Contac t Referred To Contact Diagnoses Greater trochanteric bursitis of both hips Procedures PAIN PROCEDURE WY ARTHROCENTESIS ASPIR&/INJ MAJOR JT/BURSA W/O US CHG FLUOROSCOPIC GUIDANCE NEEDLE PLACEMENT ADD ON WY INJ FOR [place]CRO[place] [address] [address] Phone: tel: fax: Referral ID Status Reason Start Date Expiration Date Visits Re quested Visits Authorized [id number] Closed 07/23/2024 09/09/2024 1 1 Encounter Details Date Type Department Care Team (Late st Contact Info) Description 08/09/2024 7:47 AM CDT Hospital Encounter [facility] Imaging Services [facility] [address] [facility] [place] [address] [place] [address] [facility] [address] [place] [address] Arrived Social History Tobacco Use Types Packs/Day Years Used Date Smoking Tobacco: Never Smokeless Tobacco: Never Alcohol Use Standard Drinks/Week Comments Not Currently 0 (1 standard drink = 0.6 oz pur e alcohol) Comments No Sex and Gender Information Value Date Recorded Sex Assigned at Not on file Legal Sex 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 Gender Identity Not on file Sexual Orientation Not on file Occupation Industry Job Start Date Job End Date Not on file Not on file Not on file Not on file documented as of this encounter Last Filed Vital Signs Vital Sign Reading Time Taken Comments Blood Pressure 134/70 08/09/2024 8:17 AM CDT Pulse 60 08/09/2024 8:17 AM CDT Temperature - - Respiratory Rate 18 08/09/2024 8:17 AM CDT Oxygen Saturation 98% 08/09/2024 8:17 AM CDT Inhaled Oxygen Concentration - - Weight - - Height - - Body Mass Index - - documented in this encounter H&P Notes * Donnie Centeno MD - 08/09/2024 8:10 AM CDT [facility]NAG[facility] PROCEDURE VISIT H&P Ely Wei is a 63 y.o. female here for Bilateral Greater Trochanteric Bursa injection using fluoroscopy. Patient does not report any major changes in medical history since last visit in our or other specialist office. Patient understands the plans and wishes to proceed with previously discussedprocedure. Patient has moderate to severe pain has been present for more than 3 months, not alleviated by noninterventional modalities. Past Medical History: Diagnosis Date Abdominal pain 2008 Abd pain increasing since 06/2009.Mid to left epigastric area. Acute angina Anemia Anxiety Autoimmune disease 1971 Coronary artery disease due to calcified coronary lesion 08/10/2014 x1 stent Depression 2000 Disorder of urinary tract 1980 History of abnormal cervical Pap smear HTN (hypertension) Hyperlipidemia Hypothyroid IBS (irritable bowel syndrome) 2018 Kidney stone 01/14/2008 Lymphocytic colitis Motion sickness cars Patient denies medical problems 2014 Heart disease Post-operative nausea and vomiting Right inguinal hernia 06/03/2016 Unspecified adverse effect of anesthesia nausea/vomiting Past Surgical History: Procedure Laterality Date HX CYST INCISION AND DRAINAGE Right 03/22/2014 Asp HX CYST INCISION AND DRAINAGE Left 02/2015 HX ESOPHAGOGASTRODUODENOSCOPY 01/23/2022 HX HERNIA INGUINAL REPAIR Right 08/06/2016 HERNIA INGUINAL REPAIR, RIGHT performed by Naima Guadarrama MD at [facility] OR [facility] HX HERNIA REPAIR 2 occurrences HX PTCA 08/04/2014 DESx1-mLAD, POBA-Diag ([place], [place] hosp) WY COLONOSCOPY FLX DX W/COLLJ SPEC WHEN PFRMD 11/21/2008 COLONOSCOPY performed by TIFFANIE ARGUELLES at [facility] WY COLONOSCOPY FLX DX W/COLLJ SPEC WHEN PFRMD N/A 09/08/2018 COLONOSCOPY performed by Felix Webber MD at [facility] WY ESOPHAGOGASTRODUODENOSCOPY TRANSORAL DIAGNOSTIC 11/21/2008 ESOPHAGOGASTRODUODENOSCOPY performed by TIFFANIE ARGUELLES at [facility] WY ESOPHAGOGASTRODUODENOSCOPY TRANSORAL DIAGNOSTIC N/A 02/23/2019 ESOPHAGOGASTRODUODENOSCOPY performed by Felix Webber MD at [facility] GI [facility] WY EXC B9 LESION MRGN XCP SK TG S/N/H/F/G 0.5 CM/< N/A 09/06/2018 VULVA CYST LESION MASS EXCISION performed by Mervin Carmen DO at [facility] OR [facility] PT DENIES RELEVANT SURGICAL HISTORY hernia n/a; lesion removal 2018, stent 2014 Allergies Allergen Reactions Hydrocodone Hives Sulfa (Sulfonamide Antibiotics) Hives Pneumococcal 23-Isis Ps Vaccine Other (See Comments) Headache, nausea, vomiting. Doxycycline Headache Morphine Nausea and Vomiting Current Outpatient Medications Medication Sig Dispense Refill metoprolol tartrate (LOPRESSOR) 25 mg tablet Take 1/2 (one-half) tablet by mouth twice daily 90 Tablet 0 nitrofurantoin (MACROBID) 100 mg capsule Take 1 Capsule (100 mg) by mouth daily in the morning. 30 Capsule 10 atorvastatin (LIPITOR) 40 mg tablet TAKE 1 TABLET BY MOUTH ONCE DAILY AT BEDTIME 90 Tablet 3 amLODIPine (NORVASC) 5 mg tablet Take 5 mg by mouth daily. albuterol sulfate HFA 90 mcg/actuation aerosol inhaler Take 2 Puffs by inhalation every 6 hours as needed for Shortness of Breath. lisinopriL (PRINIVIL) 20 mg tablet Take 40 mg by mouth daily. venlafaxine (EFFEXOR XR) 75 mg Extended Release 24 hour capsule Take 75 mg by mouth daily. levothyroxine 88 mcg tablet TAKE 1 TABLET(88 MCG) BY MOUTH DAILY 30 Tablet 0 ALPRAZolam (XANAX) 0.25 mg tablet TAKE 1 TABLET BY MOUTH EVERY NIGHT AT BEDTIME NEEDED 30 Tablet0 aspirin (SUBHASH CHEWABLE) 81 mg Tablet, Chewable Take 81 mg by mouth daily. estriol 0.5/estradiol 0.1 mg vaginal suppository compound Insert 1 suppository vaginally at bedtimenightly for 2 weeks, then twice weekly thereafter. 34 Suppository 6 oxyBUTYnin (DITROPAN XL) 10 mg Extended Release 24 hour tablet Take 1 Tablet (10 mg) by mouth daily. (Patient not taking: Reported on 07/07/2024) 30 Tablet 6 SACCHAROMYCES BOULARDII ORAL Take by mouth. vancomycin (VANCOCIN) 125 mg Capsule Take 125 mg by mouth every 6 hours. (Patient not taking: Reported on 07/07/2024) diphenoxylate-atropine 2.5 mg-0.025 mg tablet Take 2 Tablets by mouth 2 times daily. estradioL (ESTRACE) 0.01% (0.1 mg/g) vaginal cream Insert vaginally daily. 42.5 Gram 6 cholecalciferol (vitamin D3) 25 mcg (1,000 unit) tablet Take by mouth daily. VITAMIN B-12 1,000 mcg Oral Tab Take 2 Tabs by mouth daily. Current Facility-Administered Medications Medication Dose Route Frequency Provider Last Rate Last Admin [COMPLETED] triamcinolone acetonide (KENALOG-40) injectable suspension 40-80 mg 40-80 mg Intra-arTICular intra-proc ONE time Donnie Centeno MD 80 mg at 08/09/24 0758 [COMPLETED] Iopamidol (ISOVUE-M 300) 300 mg iodine /mL (61 %) injection 3 mL 3 mL See Admin Instructions see admin instructions Taryn, Donnie S, MD 1 mL at 08/09/24 0800 [COMPLETED] BUPivacaine PF (SENSORCAINE MPF) 2.5 mg/mL (0.25%) injection 10-20 mg 4-8 mL See Admin Instructions intra-proc ONE time Donnie Centeno MD 20 mg at 08/09/24 0759 [COMPLETED] lidocaine PF 1% (XYLOCAINE MPF) injection 5 mL 5 mL Infiltration intra-proc ONE time Donnie Centeno MD 5 mL at 08/09/24 0759 ROS: no pertinent findings PHYSICAL EXAM BP 134/70 (BP Location: Left arm) Pulse 60 Resp 18 LMP 12/20/2011 (Approximate) SpO2 98% Neuro: A/Ox3 Lungs: Equal chest rise bilaterally CV: regular pulse by pulse oximetry Mood: normal/pleasant FOLLOW-UP PLAN AFTER THIS PROCEDURE May repeat procedure after 3 months as needed Donnie Centeno MD Anesthesiology and Pain Management documented in this encounter OR Notes * Operative Report - Donnie Centeno MD - 08/09/2024 8:10 AM CDT Date: 08/09/2024 Procedure: 1) Greater trochanteric bursa injection with steroid () 2) Fluoroscopic guidance of needle placement () Side: Bilateral Preoperative Diagnosis: Trochanteric Bursitis Right Hip (M70.61) and Trochanteric Bursitis Left Hip (M70.62) Postoperative Diagnosis: Same Indications for Procedure: Ely Wei is a 63 y.o. female with bilateral greater trochanteric bursitis despite conservativemanagement, presenting for trial of greater trochanteric bursa injection with steroid. Anesthesia: Topical anesthesia Procedure Description: Patient was met in the preoperative area where risks and benefits of the procedure were discussed. Patient verbalized understanding, signed informed consent, and elected to proceed. The patient was brought to the procedure room and they positioned themselves in the lateral position to their comfortand optimal positioning for procedure. ASA monitors were attached, and the patient was monitored throughout. Time-out was conducted with all members of the care team. The hip was prepped and draped with chloraprep in the usual sterile fashion. The area was anesthetized with topical anesthetic. Nexta 3.5 inch 22 gauge spinal needle was then advanced to the greater trochanter until contact with ostium and then withdrawn 1mm. After negative aspiration, 1 cc of contrast was injected to confirm optimal bursal spread. Following this, 1 mL Kenalog (40mg/mL) and 4 mL of 0.5% bupivacaine for a total volume of 5 mL into the bursa. The needle was then withdrawn after reinsertion of stylette. The proce dure was repeated on the opposite side. The patient tolerated the procedure well without any immediate complications. The surgical site preparation was washed off of the patient and bandaids applied as needed. The patient was transported to the recovery area where they were monitored briefly prior to being discharged home with a motor coach bus driver. Standard discharge instructions were given to the patient. Complications: None immediate EBL: None IVF: None Specimens: None Findings: Appropriate needle placement in AP views Disposition: Patient will follow up in the clinic in the next few weeks. Donnie Centeno MD Anesthesiology and Pain Management documented in this encounter Plan of Treatment Upcoming Encounters Date Type Department Care Team (Late st Contact Info) Description 09/08/2024 12:00 PM CDT Office Visit [facility] Heart and Vascular At [address] [place] [address] Randal Cooley MD [address] [place] [address] 2014 [place] [address] 10/27/2024 10:00 AM CDT Office Visit [facility] Heart and Vascular At [address] [place] [address] Randal Cooley MD [address] [place] [address] 2014 [place] [address] 10/28/2024 9:30 AM CDT Office Visit [facility] Urology [facility] [address] [facility] [address] [place] [address] [place] [address] [facility] [address] [place] [phone] Scheduled Orders Name Type Priority Associated Diagnoses Orde r Schedule PAIN PROCEDURE Neurology Routine Greater trochanteric bursitis of both hips Added to HDF configuration to grandchildren will have ORD item [id number] populate with time. for 1 Occurrences starting 08/09/2024 until 08/09/2024 documented as of this encounter Procedures Procedure Name Priority Date/Time Associated Diagnosis Comments XR FLUORO NEEDLE GUIDANCE SPINE Routine 08/09/2024 8:10 AM CDT documented in this encounter Results * XR FLUORO NEEDLE GUIDANCE SPINE (08/09/2024 8:10 AM CDT) Narrative [facility] - 08/09/2024 8:10 AM CDT Order information only. Exam was auto-finalized. Donnie Centeno MD DIAGNOSTIC IMAGING ORDERABLES F inal Result [facility] CLIA# [id number] [facility] [place] [address] documented in this encounter Visit Diagnoses Diagnosis Greater trochanteric bursitis of both hips Enthesopathy of hip region documented in this encounter Administered Medications Inactive Administered Medications - up to 3 most recent administrations Medication Order MAR Action Action Date Dose Rate Site BUPivacaine PF (SENSORCAINE MPF) 2.5 mg/mL (0.25%) injection 10-20 mg 10-20 mg (4-8 mL), See Admin Instructions, INTRA-PROCEDURE ONCE, 1 dose, Starting on Thu08/09/24 at 0810, Until Thu08/09/24 at 0759, Routine, Pre-ProcedureIndications: Greater trochanteric bursitis of both hips Given 08/09/2024 7:59 AM CDT 20 mg Operative Site Iopamidol (ISOVUE-M 300) 300 mg iodine /mL (61 %) injection 3 mL 3 mL, See Admin Instructions, SEE ADMIN INSTRUCTIONS, 1 dose, Starting on Thu08/09/24 at 0810, Until Thu08/09/24 at 0800, Routine, Pre-ProcedureIndications: Greater trochanteric bursitis of both hips Contrast Given 08/09/2024 8:00 AM CDT 1 mL Operative Site lidocaine PF 1% (XYLOCAINE MPF) injection 5 mL 5 mL, Infiltration, INTRA-PROCEDURE ONCE, 1 dose, Starting on Thu08/09/24 at 0810, Until Tu08/09/24 at 0759, Routine, Pre-ProcedureIndications: Greater trochanteric bursitis of both hips Given 08/09/2024 7:59 AM CDT 5 mL triamcinolone acetonide (KENALOG-40) injectable suspension 40-80 mg 40-80 mg, Intra-arTICular, INTRA-PROCEDURE ONCE, 1 dose, Starting on Thu08/09/24 at 0810, Until Thu08/09/24 at 0759, Routine, Pre-ProcedureIndications: Greater trochanteric bursitis of both hips Given 08/09/2024 7:59 AM CDT 80 mg documented in this encounter
--- OUTSIDE RECORDS SUMMARY | 2024-08-09 11:34 | XMS_ITS | Encounter Summary ---
Author Organization [facility] Address [address] [place] [address] Care Team Providers Care Ethical Hacker Name Role Phone Unavailable Primary Care Provider Unavailabl e Encounter Details Date Type Department Care Team (Late st Contact Info) Description 02/12/2023 Telephone [facility] [employer] [facility] [address] [place] [phone] Sarah Rai RN Social History Tobacco Use Types Packs/Day Years Used Date Smoking Tobacco: Never Smokeless Tobacco: Never Alcohol Use Standard Drinks/Week Comments Not Currently 0 (1 standard drink = 0.6 oz pur e alcohol) Comments No Sex and Gender Information Value Date Recorded Sex Assigned at Not on file 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 LVM to return call CLE DETAILER documented in this encounter Plan of Treatment Upcoming Encounters Date Type Department Care Team (Late st Contact Info) Description 09/08/2024 12:00 PM CDT Office Visit [facility] Heart and Vascular At [address] [place] [address] Randal Cooley MD [address] [place] [address] 2014 [place] [address] 10/27/2024 10:00 AM CDT Office Visit [facility] Heart and Vascular At [address] [place] [address] Randal Cooley MD [address] [place] [address] 2014 [place] [address] 10/28/2024 9:30 AM CDT Office Visit [facility] [address] [address] [place] [address] [facility] [address] [place] [address] documented as of this encounter Visit Diagnoses Not on filedocumented in this encounter
--- OUTSIDE RECORDS SUMMARY | 2024-08-09 11:34 | XMS_ITS | Encounter Summary ---
Author Organization [facility] Address [address] [place] [address] Care Team Providers Care Broach Grinder Name Role Phone Jina Banda MD Primary Care Provider Unav ailable Encounter Details Date Type Department Care Team (Late st Contact Info) Description 10/07/2000 Outpatient Historical [facility] Internal Medicine - 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 Gender Identity Not on file Sexual Orientation Not on file documented as of this encounter Plan of Treatment Upcoming Encounters Date Type Department Care Team (Late st Contact Info) Description 09/08/2024 12:00 PM CDT Office Visit [facility] Heart and Vascular At [address] [place] [address] Randal Cooley MD [address] [place] [address] 2014 [place] [address] 10/27/2024 10:00 AM CDT Office Visit [facility] Heart and Vascular At [address] [place] [address] Randal Cooley MD [address] [place] [address] 2014 [place] [address] 10/28/2024 9:30 AM CDT Office Visit [facility] Urology [facility] [address] [facility] [address] [place] [address] [place] [address] [facility] [address] [place] [address] documented as of this encounter Visit Diagnoses Not on filedocumented in this encounter Additional Health Concerns Infection Onset Date Last Indicated Resolved Time R/O COVID-19 11/08/2019 11/08/2019 11/11/2019 12:3 1 AM CDT R/O COVID-19 02/01/2020 02/01/2020 02/03/2020 2:00 AM PAYROLL CLERK documented as of this encounter Care Teams Broach Grinder Relationship Specialty Start Date End Date Jina Banda MD PCP - General Internal Medicine 06/20/16 12/03/21 documented as of this encounter
--- OUTSIDE RECORDS SUMMARY | 2024-08-09 11:34 | XMS_ITS | Encounter Summary ---
Author Organization [facility] Address 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 Sex Female 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 Gender Identity Not on file Sexual Orientation Not on file documented as of this encounter Plan of Treatment Upcoming Encounters Date Type Department Care Team (Late st Contact Info) Description 09/08/2024 12:00 PM CDT Office Visit [facility] Heart and Vascular At [address] [place] [address] Randal Cooley MD [address] [place] [address] [address] [place] [address] 10/27/2024 10:00 AM CDT Office Visit [facility] Heart and Vascular At [address] [place] [address] Randal Cooley MD [address] [place] [address] 2014 [place] [address] 10/28/2024 9:30 AM CDT Office Visit [facility] Urology [facility] [address] [facility] [address] [place] [address] [place] [address] [facility] [address] [place] [address] documented as of this encounter Visit Diagnoses Diagnosis Other screening mammogram- Primary documented in this encounter Additional Health Concerns Infection Onset Date Last Indicated Resolved Time R/O COVID-19 11/08/2019 11/08/2019 11/11/2019 12:3 1 AM CDT R/O COVID-19 02/01/2020 02/01/2020 02/03/2020 2:00 AM CREDIT CONTROL ASSISTANT documented as of this encounter Care Teams Electric Motor Winders Assembler Relationship Specialty Start Date End Date Jina Banda MD PCP - General Internal Medicine 06/20/16 12/03/21 documented as of this encounter
--- OUTSIDE RECORDS SUMMARY | 2024-08-09 11:34 | XMS_ITS | Encounter Summary ---
Author Organization [facility] Address [address] [place] [address] Care Team Providers Care Market Research Associate Name Role Phone Jina Banda MD Primary Care Provider Unav ailable Encounter Details Date Type Department Care Team (Late st Contact Info) Description 10/14/2001 Outpatient Historical [facility] Internal Medicine - [facility] [address] [address] [facility] [address] [place] [address] Jina Banda MD NO ADDRESS ON FILE Social History Tobacco Use Types Packs/Day Years Used Date Smoking Tobacco: Never Assessed Comments Unknown Sex and Gender Information Value Date Recorded Sex Assigned at Not on file 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 Gender Identity Not on file Sexual Orientation Not on file documented as of this encounter Plan of Treatment Upcoming Encounters Date Type Department Care Team (Late st Contact Info) Description 09/08/2024 12:00 PM CDT Office Visit [facility] Heart and Vascular At [address] [place] [address] Randal Cooley MD [address] [place] [address] 2014 [place] [address] 10/27/2024 10:00 AM CDT Office Visit [facility] Heart and Vascular At [address] [place] [address] Randal Cooley MD [address] [place] [address] 2014 [place] [address] 10/28/2024 9:30 AM CDT Office Visit [facility] Urology [facility] [address] [facility] [address] [place] [address] [place] [address] [facility] [address] [place] [address] documented as of this encounter Visit Diagnoses Not on filedocumented in this encounter Additional Health Concerns Infection Onset Date Last Indicated Resolved Time R/O COVID-19 11/08/2019 11/08/2019 11/11/2019 12:3 1 AM CDT R/O COVID-19 02/01/2020 02/01/2020 02/03/2020 2:00 AM ROCKET ENGINE COMPONENT MECHANIC documented as of this encounter Care Teams Market Research Associate Relationship Specialty Start Date End Date Jina Banda MD PCP - General Internal Medicine 06/20/16 12/03/21 documented as of this encounter
--- OUTSIDE RECORDS SUMMARY | 2024-08-09 11:34 | XMS_ITS | Encounter Summary ---
Author Organization [facility] Address [address] [facility] Attn: [place] [address] Care Team Providers Care Surgical Assistant Name Role Phone Jina Banda MD Primary Care Provider Unav ailable Encounter Details Date Type Department Care Team (Late st Contact Info) Description 05/13/1990 Outpatient Historical Sahil Tsang MD [address] [place] [address] Social History Tobacco Use Types Packs/Day Years Used Date Smoking Tobacco: Never Assessed Comments Unknown Sex and Gender Information Value Date Recorded Sex Assigned at Not on file 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 Gender Identity Not on file Sexual Orientation Not on file documented as of this encounter Plan of Treatment Upcoming Encounters Date Type Department Care Team (Late st Contact Info) Description 09/08/2024 12:00 PM CDT Office Visit [facility] Heart and Vascular At [address] [place] [address] Randal Cooley MD [address] [place] [address] 2014 [place] [address] 10/27/2024 10:00 AM CDT Office Visit [facility] Heart and Vascular At [address] [place] [address] Randal Cooley MD [address] [place] [address] 2014 [place] [address] 10/28/2024 9:30 AM CDT Office Visit [facility] Urology [facility] [address] [facility] [address] [place] [address] [place] [address] [facility] [address] [place] [address] documented as of this encounter Visit Diagnoses Not on filedocumented in this encounter Additional Health Concerns Infection Onset Date Last Indicated Resolved Time R/O COVID-19 11/08/2019 11/08/2019 11/11/2019 12:3 1 AM CDT R/O COVID-19 02/01/2020 02/01/2020 02/03/2020 2:00 AM TABLE OPERATOR documented as of this encounter Care Teams Surgical Assistant Relationship Specialty Start Date End Date Jina Banda MD PCP - General Internal Medicine 06/20/16 12/03/21 documented as of this encounter
--- OUTSIDE RECORDS SUMMARY | 2024-08-09 11:34 | XMS_ITS | Encounter Summary ---
Author Organization [facility] Address [address] [place] [address] Care Team Providers Care Agency Operator Name Role Phone Jina Banda MD Primary Care Provider Unav ailable Encounter Details Date Type Department Care Team (Latest Contact Info) Description 11/24/2001 Outpatient Historical [facility] Chato Aguilera MD [address] [place] [address] SCREENING MAMM-MAILG NEOPL-OTHER (Primary Dx) Social History Tobacco Use Types Packs/Day Years Used Date Smoking Tobacco: Never Assessed Comments Unknown Sex and Gender Information Value Date Recorded Sex Assigned at Not on file Legal Sex Female 5:30 AM BRYOLOGIST Gender Identity Not on file Sexual Orientation Not on file documented as of this encounter Plan of Treatment Upcoming Encounters Date Type Department Care Team (Late st Contact Info) Description 09/08/2024 12:00 PM CDT Office Visit [facility] Heart and Vascular At [address] [place] [address] Randal Cooley MD [address] [place] [address] 2014 [place], [place] [id number] 10/27/2024 10:00 AM CDT Office Visit [facility] Heart and Vascular At [address] [place] [address] Randal Cooley MD [address] [place] [address] 2014 [place] [address] 10/28/2024 9:30 AM CDT Office Visit [facility] Urology [facility] [address] [facility] [address] [place] [address] [place] [address] [facility] [address] [place] [address] documented as of this encounter Visit Diagnoses Diagnosis Other screening mammogram- Primary documented in this encounter Additional Health Concerns Infection Onset Date Last Indicated Resolved Time R/O COVID-19 11/08/2019 11/08/2019 11/11/2019 12:3 1 AM CDT R/O COVID-19 02/01/2020 02/01/2020 02/03/2020 2:00 AM BRYOLOGIST documented as of this encounter Care Teams Agency Operator Relationship Specialty Start Date End Date Jina Banda MD PCP - General Internal Medicine 06/20/16 12/03/21 documented as of this encounter
--- OUTSIDE RECORDS SUMMARY | 2024-08-09 11:34 | XMS_ITS | Encounter Summary ---
Author Organization [facility] Address [address] [place] [address] Care Team Providers Care Storage Engineer Name Role Phone Jina Banda MD [...] on file Legal Sex Female 5:30 AM BACK END ENGINEER Gender Identity Not on file Sexual Orientation Not on file documented as of this encounter Plan of Treatment Upcoming Encounters Date Type Department Care Team (Late st Contact Info) Description 09/08/2024 12:00 PM CDT Office Visit [facility] Heart and Vascular At [address] [place] [address] Randal Cooley MD [address] [place] [address] 2014 [place] [address] 10/27/2024 10:00 AM CDT Office Visit [facility] Heart and Vascular At [address] [place] [address] Randal Cooley MD [address] [place] [address] 2014 [place] [address] 10/28/2024 9:30 AM CDT Office Visit [facility] Urology [facility] [address] [facility] [address] [facility] [address] [place] [address] [place] [address] [facility] [address] [facility] [address] [place] [address] documented as of this encounter Visit Diagnoses Diagnosis Pain in joint, pelvic region and thigh- Primary documented in this encounter Additional Health Concerns Infection Onset Date Last Indicated Resolved Time R/O COVID-19 11/08/2019 11/08/2019 11/11/2019 12:3 1 AM CDT R/O COVID-19 02/01/2020 02/01/2020 02/03/2020 2:00 AM BACK END ENGINEER documented as of this encounter Care Teams Storage Engineer Relationship Specialty Start Date End Date Jina Banda MD PCP - General Internal Medicine 06/20/16 12/03/21 documented as of this encounter
--- OUTSIDE RECORDS SUMMARY | 2024-08-09 11:34 | XMS_ITS | Encounter Summary ---
Author Organization [facility] Address [address] [place] [address] Care Team Providers Care Prison Warden Name Role Phone Jina Banda MD Primary Care Provider Unav ailable Encounter Details Date Type Department Care Team (Late st Contact Info) Description 06/06/1998 Outpatient Historical [facility] Internal Medicine - [facility] [address] [address] [facility] [address] [place] [address] Jina Banda MD NO ADDRESS ON FILE Social History Tobacco Use Types Packs/Day Years Used Date Smoking Tobacco: Never Assessed Comments Unknown Sex and Gender Information Value Date Recorded Sex Assigned at Not on file Legal Sex Female 5:30 AM CORNER FORMER Gender Identity Not on file Sexual Orientation Not on file documented as of this encounter Plan of Treatment Upcoming Encounters Date Type Department Care Team (Late st Contact Info) Description 09/08/2024 12:00 PM CDT Office Visit [facility] Heart and Vascular At [address] [place] [address] Randal Cooley MD [address] [place] [address] 2014 [place] [address] 10/27/2024 10:00 AM CDT Office Visit [facility] Heart and Vascular At [address] [place] [address] Randal Cooley MD [address] [place] [address] 2014 [place] [address] 10/28/2024 9:30 AM CDT Office Visit [facility] Urology [facility] [address] [facility] [address] [place] [address] [place] [address] [facility] [address] [place] [address] documented as of this encounter Visit Diagnoses Not on filedocumented in this encounter Additional Health Concerns Infection Onset Date Last Indicated Resolved Time R/O COVID-19 11/08/2019 11/08/2019 11/11/2019 12:3 1 AM CDT R/O COVID-19 02/01/2020 02/01/2020 02/03/2020 2:00 AM CORNER FORMER documented as of this encounter Care Teams Prison Warden Relationship Specialty Start Date End Date Jina Banda MD PCP - General Internal Medicine 06/20/16 12/03/21 documented as of this encounter
--- OUTSIDE RECORDS SUMMARY | 2024-08-09 11:34 | XMS_ITS | Encounter Summary ---
Author Organization [facility] Address [address] [place] [address] Care Team Providers Care Client Experience Specialist Name Role Phone Jina Banda MD Primary Care Provider Unav ailable Encounter Details Date Type Department Care Team (Latest Contact Info) Description 10/25/1998 Outpatient Historical [facility] Chato Aguilera MD [address] [place] [address] Other screening mammogram (Primary Dx) Social History Tobacco Use Types Packs/Day Years Used Date Smoking Tobacco: Never Assessed Comments Unknown Sex and Gender Information Value Date Recorded Sex Assigned at Not on file Legal Sex Female 5:30 AM MACHINE STUFFER AUTOMATIC Gender Identity Not on file Sexual Orientation Not on file documented as of this encounter Plan of Treatment Upcoming Encounters Date Type Department Care Team (Late st Contact Info) Description 09/08/2024 12:00 PM CDT Office Visit [facility] Heart and Vascular At [address] [place] [address] Randal Cooley MD [address] [place] [address] 2014 [place] [address] 10/27/2024 10:00 AM CDT Office Visit [facility] Heart and Vascular At [address] 2014 [place] [address] Randal Cooley MD [address] [place] [address] 2014 [place] [address] 10/28/2024 9:30 AM CDT Office Visit [facility] Urology [facility] [address] [facility] [address] [place] [address] [place] [address] [facility] 260 [place] [address] documented as of this encounter Visit Diagnoses Diagnosis Other screening mammogram- Primary documented in this encounter Additional Health Concerns Infection Onset Date Last Indicated Resolved Time R/O COVID-19 11/08/2019 11/08/2019 11/11/2019 12:3 1 AM CDT R/O COVID-19 02/01/2020 02/01/2020 02/03/2020 2:00 AM MACHINE STUFFER AUTOMATIC documented as of this encounter Care Teams Client Experience Specialist Relationship Specialty Start Date End Date Jina Banda MD PCP - General Internal Medicine 06/20/16 12/03/21 documented as of this encounter
--- OUTSIDE RECORDS SUMMARY | 2024-08-09 11:34 | XMS_ITS | Encounter Summary ---
Author Organization [facility] Address [address] [place] [address] Care Team Providers Care Information Systems Security Analyst Name Role Phone Jina Banda MD Primary Care Provider Unav ailable Encounter Details Date Type Department Care Team (Late st Contact Info) Description 07/19/2002 Outpatient Historical [facility] Internal Medicine - [facility] [address] [address] [facility] [address] [place] [address] Jina Banda MD NO ADDRESS ON FILE Social History Tobacco Use Types Packs/Day Years Used Date Smoking Tobacco: Never Assessed Comments Unknown Sex and Gender Information Value Date Recorded Sex Assigned at Not on file Legal Sex Female 5:30 AM TELEPRINTER Gender Identity Not on file Sexual Orientation Not on file documented as of this encounter Plan of Treatment Upcoming Encounters Date Type Department Care Team (Late st Contact Info) Description 09/08/2024 12:00 PM CDT Office Visit [facility] Heart and Vascular At [address] [place] [address] Randal Cooley MD [address] [place] [address] 2014 [place] [address] 10/27/2024 10:00 AM CDT Office Visit [facility] Heart and Vascular At [address] [place] [address] Randal Cooley MD [address] [place] [address] 2014 [place] [address] 10/28/2024 9:30 AM CDT Office Visit [facility] Urology [facility] [address] [facility] [address] [place] [address] [place] [address] [facility] [address] [place] [address] documented as of this encounter Visit Diagnoses Not on filedocumented in this encounter Additional Health Concerns Infection Onset Date Last Indicated Resolved Time R/O COVID-19 11/08/2019 11/08/2019 11/11/2019 12:3 1 AM CDT R/O COVID-19 02/01/2020 02/01/2020 02/03/2020 2:00 AM TELEPRINTER documented as of this encounter Care Teams Information Systems Security Analyst Relationship Specialty Start Date End Date Jina Banda MD PCP - General Internal Medicine 06/20/16 12/03/21 documented as of this encounter
--- OUTSIDE RECORDS SUMMARY | 2024-08-09 11:34 | XMS_ITS | Referral Summary ---
Author Organization [facility] Address [address] [place] [address] Care Team Providers Care Director Of Clinical Education Name Role Phone Mervin Jay DO Primary Care Provider [phone] Encounters Date Type Department Care Team Description 06/30/2024 Results Follow-Up [facility] Allergy and Immunology [address] [facility] Office Building [address] [place] [address] Andrzej Wyman MD Strep pneumoniae antibody serotypes 06/27/2024 11:[address] [facility] [address] [facility] [address] [place] [address] Recurrent pneumonia; IgA deficiency (HCC) 06/27/2024 10:50 AM CDT Office Visit [facility] Allergy and Immunology [address] [facility] [address] [place] [address] Andrzej Wyman MD Recurrent pneumonia (Primary Dx); IgA deficiency (HCC) 05/31/2024 Orders Only [facility] Pediatric Allergy and Pulmonology [facility] 2nd [place] [address] [place] [address] Andrzej Wyman MD from Last 3 Months Allergies Active Allergy [...] vomiting. Sulfa (Sulfonamide Antibiotics) Urticaria,Unknown Medium 09/11/2018 Medications aspirin 81 mg chewable tablet Take [...] vaginal cream INSERT VAGINALLY ONCE DAILY Active albuterol HFA (PROVENTIL HFA,VENTOLIN HFA,PROAIR HFA) 90 [...] total) by mouth daily 02/17/20 24 Active azithromycin (Zithromax Z-Isak) 250 mg tabletIndications: Walking pneumonia Take 2 tabs (500 mg) by mouth today, then 1 tab (250 mg) daily for 4 days. 6 tablet 06/04/19 25 Active Additional Information Patient not taking.Reported on 06/27/2024 meclizine (ANTIVERT) 25 mg tablet TAKE 1 TABLET BY MOUTH TWICE DAILY NEEDED FOR DIZZINESS FOR 7 DAYS 05/19/19 25 Active diphenoxylate-atro pine (LOMOTIL) 2.5-0.025 mg per tablet Take 2 tablets by mouth twice daily 120 tablet 07/12/19 25 Active Active Problems Problem Noted Date Diagnosed Date Lymphocytic colitis 05/04/2022 Chronic diarrhea 01/06/2022 Overview (01/06/2022): Added automatically from request for surgery [id number] Social History Tobacco Use Types Packs/Day Years [...] on file Legal Sex Female 6:45 PM THERMOMETER MAKER Gender Identity Not on file Sexual Orientation Not on file Last Filed Vital Signs Vital Sign Reading Time Taken Comments Blood Pressure 121/73 06/27/2024 10:48 AM CDT Pulse 64 06/27/2024 10:48 AM CDT Temperature 36.8 C (98.2 F) 06/27/2024 10:48 AM CDT Respiratory Rate 15 01/23/2022 11:05 AM THERMOMETER MAKER Oxygen Saturation 97% 06/27/2024 10:48 AM CDT Inhaled Oxygen Concentration - - Weight 70.8 kg (156 lb) 06/27/2024 10:48 AM CDT Height 154.9 cm (5' 1) 06/27/2024 10:48 AM CDT Body Mass Index 29.48 06/27/2024 10:48 AM CDT Plan of Treatment Not on file Procedures Procedure Name Priority Date/Time Associated Diagnosis Comments CLOSTRIDIUM DIFFICILE TOXIN Routine 07/05/2024 11:54 AM CDT Lymphocytic colitis STREP PNEUMONIAE ANTIBODY SEROTYPES Routine 06/27/2024 12:08 PM CDT Recurrent pneumonia IgA deficiency (HCC) MYCOPLASMA PNEUMONIAE ANTIBODY, IGG AND IGM Routine 05/31/2024 11:34 AM CDT COLONOSCOPY 01/23/2022 10:27 AM THERMOMETER MAKER from Last 3 Months or Most Recently Relevant to Health Maintenance Results * Clostridium difficile toxin Stool (07/05/2024 11:54 AM CDT) C difficile Toxins A+B, EIA Negative Negative [facility] - 01 Stool 07/05/2024 11:5 4 AM CDT 07/05/2024 Comment:ST Marina [facility] - 07/06/2024 4:11 PM CDT Performed at: [facility] [id number] Deoiling Machine Operator: Timo Mora PhD, Phone: [phone] us Katelyn Toure NP LAB MICROBIOLOGY - GENERAL ORDERABLES Final Result [facility] - 01 * Strep pneumoniae antibody serotypes (06/27/2024 12:08 PM CDT) S. pneumo Type 1 (1) 23.2 >=1.0 mcg/mL [facility] S. pneumo Type 2 (2) 9.5 >=1.0 mcg/mL [facility] S. pneumo Type 3 (3) 0.5 >=1.0 mcg/mL [facility] S. pneumo Type 4 (4) 7.3 >=1.0 mcg/mL [facility] S. pneumo Type 5 (5) 5.9 >=1.0 mcg/mL [facility] S. pneumo Type 8 (8) 9.5 >=1.0 mcg/mL [facility] S. pneumo Type 9N (9) 59.9 >=1.0 mcg/mL [facility] S. pneumo Type 12F (12) 1.5 >=1.0 mcg/mL [facility] S. pneumo Type 14 (14) 14.8 >=1.0 mcg/mL [facility] S. pneumo Type 17F (17) 11.7 >=1.0 mcg/mL [facility] S. pneumo Type 19F (19) 4.8 >=1.0 mcg/mL [facility] S. pneumo Type 20 (20) 8.7 >=1.0 mcg/mL [facility] S. pneumo Type 22F (22) 3.5 >=1.0 mcg/mL [facility] S. pneumo Type 23F (23) 18.0 >=1.0 mcg/mL [facility] S. pneumo Type 6B (26) 1.2 >=1.0 mcg/mL [facility] S. pneumo Type 10A (34) 6.4 >=1.0 mcg/mL [facility] S. pneumo Type 11A (43) 4.2 >=1.0 mcg/mL [facility] S. pneumo Type 7F (51) 1.8 >=1.0 mcg/mL [facility] S. pneumo Type 15B (54) 2.8 >=1.0 mcg/mL [facility] S. pneumo Type 18C (56) 2.5 >=1.0 mcg/mL [facility] S. pneumo Type 19A (57) 4.4 >=1.0 mcg/mL [facility] S. pneumo Type 9V (68) 22.7 >=1.0 mcg/mL [facility] S. pneumo Type 33F (70) 5.9 >=1.0 mcg/mL LEONEL AMAYA Pneum Ab 23 interp See Footnote LEONEL [...] developed and its performance characteristics determined by [facility] in a manner consistent with CLIA requirements. This test has not been cleared or approved by the U.S. Food and Drug Administration. Test Performed by: [place] [address] Deoiling Machine Operator: Vandana Simons Ph.D.; CLIA# [id number] Blood 06/27/2024 12:0 8 PM CDT 06/27/2024 2:24 PM CDT us Andrzej Wyman MD LAB BLOOD ORDERABLES Fi nal Result [facility] [place] [address] [place] ref [facility] * (ABNORMAL) Mycoplasma pneumoniae antibody, IgG and IgM (05/31/2024 11:34 AM CDT) [facility] M. pneumoniae IgG 1,337(H) 0 - 99 U/mL [facility] - 01 Comment: Negative: <100 Indeterminate: 100 - 320 Positive: >320 The reference interval established is intended as a baseline only. Values >100 may indicate a recent infection with Mycoplasma pneumoniae and need to be confirmed either by a positive IgM result and/or an additional specimen drawn 2-4 weeks later showing a significant increase in antibody levels. M. pneumoniae IgM 1,174(H) 0 - 769 U/mL [facility] - 01 Comment: Negative <770 Clinically significant amount of M. pneumoniae antibody not detected. Low Positive 770 - 950 M. pneumoniae specific IgM presumptively detected. It is recommended that another sample be collected 1-2 weeks later to assure reactivity. Positive >950 Highly significant amount of M. pneumoniae specific IgM antibody detected. 05/31/2024 11:3 4 AM CDT 05/31/2024 Narrative [facility] - 06/01/2024 4:11 PM CDT Performed at: [address] [place] [id number] Deoiling Machine Operator: Timo Mora PhD, Phone: [phone] us Andrzej Wyman MD LAB MICROBIOLOGY - [facility] ORDERABLES Final Result [facility] - 01 * COLONOSCOPY (01/23/2022 10:27 AM THERMOMETER MAKER) Anatomical Region Laterality Modality Other Narrative Procedure Note Ez Agarwal MD - 01/23/2022 10:27 AM CST [facility] Patient Name: Ely Wei Procedure Date: 01/23/2022 10:27AM Date of : 1960 Admit Type: Outpatient Age: 61 Gender: Female Attending MD: Ez Agarwal M.D. Room: [facility] ENDOSCOPY ROOM 8 Note Status: [...] The scope was passed under direct vision.The [id number] endoscope was introduced through the anus and [...] On: 01/23/2022 10:27 AM Recognized by the [employer] for promoting quality in endoscopy Ez Agarwal MD ENDOSCOPY PROCEDURES F inal Result from Last 3 Months or Most Recently Relevant to Health Maintenance Insurance MEDICARE [facility] MEDICARE SUPPLEMENT MEDICARE [employer] MEDICARE SUPPLEMENT Advance Directives For more information, please contact: [phone] * Full Code (Latest Code Status on File) Date Activated Date Inactivated Comments 01/23/2022 9:55 AM 01/23/2022 3:41 PM Care Teams Director Of Clinical Education Relationship Specialty Start Date End Date Mervin Jay DO PCP - General Internal Medicine 10/21/21
--- OUTSIDE RECORDS SUMMARY | 2024-08-09 11:34 | XMS_ITS | Encounter Summary ---
Author Organization [facility] Address [address] [place] [address] Care Team Providers Care Electrician Chief Name Role Phone Jina Banda MD Primary Care Provider Unav ailable Encounter Details Date Type Department Care Team (Late st Contact Info) Description 02/28/2006 Outpatient Historical [facility] - [facility] [address] [address] [facility] [address] [place] [address] Jina Banda MD NO ADDRESS ON FILE Unspecified Hypothyroidism (Primary Dx) Social History Tobacco Use Types Packs/Day Years Used Date Smoking Tobacco: Never Assessed Comments Unknown Sex and Gender Information Value Date Recorded Sex Assigned at Not on file Legal Sex Female 5:30 AM STAFFING CLERK Gender Identity Not on file Sexual Orientation Not on file documented as of this encounter Plan of Treatment Upcoming Encounters Date Type Department Care Team (Late st Contact Info) Description 09/08/2024 12:00 PM CDT Office Visit [facility] Heart and Vascular At [address] 2014 [place] [address] Randal Cooley MD [address] [place] [address] 2014 [place] [address] 10/27/2024 10:00 AM CDT Office Visit [facility] Heart and Vascular At [address] [place] [address] Randal Cooley MD [address] [place] [address] 2014 [place] [address] 10/28/2024 9:30 AM CDT Office Visit [facility] Urology [facility] [address] [facility] [address] [place] [address] [place] [address] [facility] [address] [place] [address] documented as of this encounter Procedures Procedure Name Priority Date/Time Associated Diagnosis Comments CBC WITH DIFFERENTIAL Routine 02/28/2006 9:53 AM STAFFING CLERK CBC WITH DIFFERENTIAL Routine 02/28/2006 9:53 AM STAFFING CLERK TSH Routine 02/28/2006 9:53 AM STAFFING CLERK LIPID PANEL Routine 02/28/2006 9:53 AM STAFFING CLERK documented in this encounter Results * CBC WITH DIFFERENTIAL (02/28/2006 9:53 AM STAFFING CLERK) NEUTROPHILS 57 45 - 70 % INTERFAC [...] 0.20 K/uL INTERFACE SYSTEM 02/28/2006 9:53 AM STAFFING CLERK Jina Banda MD HEMATOLOGY ORDERABLES Final Result INTERFACE SYSTEM Refer to clinic/hospital department * (ABNORMAL) CBC WITH DIFFERENTIAL (02/28/2006 9:53 AM STAFFING CLERK) WBC 4.6 4.0 - 9.8 K/uL INTERFACE [...] 12.4 fL INTERFACE SYSTEM 02/28/2006 9:53 AM STAFFING CLERK us Jina Banda MD HEMATOLOGY ORDERABLES Final Result Performing Organization Address City/[facility] Co de Phone Number INTERFACE SYSTEM Refer to clinic/hospital department * TSH (02/28/2006 9:53 AM STAFFING CLERK) TSH 2.24 0.27 - 4.20 uU/mL INTERFACE SYSTEM 02/28/2006 9:53 AM STAFFING CLERK us Jina Banda MD CHEMISTRY ORDERABLES Final Result Performing Organization Address [facility]/ZIP Co de Phone Number INTERFACE SYSTEM Refer to clinic/hospital department * (ABNORMAL) LIPID PANEL (02/28/2006 9:53 AM STAFFING CLERK) CHOLESTEROL 179 100 - 199 mg/dL INTERFACE SYSTEM TRIGLYCERIDE 77 10 - 149 mg/dL INTERFACE SYSTEM HDL 79(H) 40 - 59 mg/dL INTERFACE SYSTEM CHOL/HDL RATIO 2.3 2.0 - 5.0 INTER FACE SYSTEM LDL CALCULATED 85 <=99 mg/dL INTERFACE SYSTEM LIPID PANEL COMMENT See Below INTERFACE SYSTEM Comment: The adult ATP and pediatric NCEP classifications for lipids are available on the [facility] Intranet at: [email or web address] Select: Lab Policies and Procedures Select: Reference Ranges - Lipids 02/28/2006 9:53 AM STAFFING CLERK us Jina Banda MD CHEMISTRY ORDERABLES Final Result INTERFACE SYSTEM Refer to clinic/hospital department documented in this encounter Visit Diagnoses Diagnosis Unspecified hypothyroidism- Primary documented in this encounter Additional Health Concerns Infection Onset Date Last Indicated Resolved Time R/O COVID-19 11/08/2019 11/08/2019 11/11/2019 12:3 1 AM CDT R/O COVID-19 02/01/2020 02/01/2020 02/03/2020 2:00 AM STAFFING CLERK documented as of this encounter Care Teams Electrician Chief Relationship Specialty Start Date End Date Jina Banda MD PCP - General Internal Medicine 06/20/16 12/03/21 documented as of this encounter
--- OUTSIDE RECORDS SUMMARY | 2024-08-09 11:34 | XMS_ITS | Encounter Summary ---
Author Organization [facility] Address [address] [place] [address] Care Team Providers Care Thermite Bomb Loader Name Role Phone Jina Banda MD Primary [...] file Legal Sex Female 5:30 AM ENVIRONMENTAL AIR SPECIALIST Gender Identity Not on file Sexual Orientation Not on file documented as of this encounter Plan of Treatment Upcoming Encounters Date Type Department Care Team (Late st Contact Info) Description 09/08/2024 12:00 PM CDT Office Visit [facility] Heart and Vascular At [address] [place] [address] Randal Cooley MD [address] [place] [address] 2014 [place] [address] 10/27/2024 10:00 AM CDT Office Visit [facility] Heart and Vascular At [address] [place] [address] Randal Cooley MD [address] [place] [address] 2014 [place] [address] 10/28/2024 9:30 AM CDT Office Visit [facility] U[facility] [address] [facility] [address] [place] [address] [place] [address] [facility] [facility] [address] [facility] [address] [place] [address] documented as of this encounter Visit Diagnoses Diagnosis Other chest pain- Primary documented in this encounter Additional Health Concerns Infection Onset Date Last Indicated Resolved Time R/O COVID-19 11/08/2019 11/08/2019 11/11/2019 12:3 1 AM CDT R/O COVID-19 02/01/2020 02/01/2020 02/03/2020 2:00 AM ENVIRONMENTAL AIR SPECIALIST documented as of this encounter Care Teams Thermite Bomb Loader Relationship Specialty Start Date End Date Jina Banda MD PCP - General Internal Medicine 06/20/16 12/03/21 documented as of this encounter
--- OUTSIDE RECORDS SUMMARY | 2024-08-09 11:34 | XMS_ITS | Encounter Summary ---
Author Organization [facility] Address [address] [place] [address] Care Team Providers Care Mixed Livestock Farmer Name Role Phone Jina Banda MD Primary Care Provider Unav ailable Encounter Details Date Type Department Care Team (Late st Contact Info) Description 09/22/2000 Outpatient Historical [facility] - [facility] [address] [address] [facility] [address] [place] [address] Jina Banda MD NO ADDRESS ON FILE Social History Tobacco Use Types Packs/Day Years Used Date Smoking Tobacco: Never Assessed Comments Unknown Sex and Gender Information Value Date Recorded Sex Assigned at Not on file Legal Sex Female 5:30 AM POUNCING LATHE OPERATOR Gender Identity Not on file Sexual Orientation Not on file documented as of this encounter Plan of Treatment Upcoming Encounters Date Type Department Care Team (Late st Contact Info) Description 09/08/2024 12:00 PM CDT Office Visit [facility] Heart and Vascular At [address] [place] [address] Randal Cooley MD [address] [place] [address] 2014 [place] [address] 10/27/2024 10:00 AM CDT Office Visit [facility] Heart and Vascular At [address] [place] [address] Randal Cooley MD [address] [place] [address] 2014 [place] [address] 10/28/2024 9:30 AM CDT Office Visit [facility] Urology [facility] [address] [facility] [place] [address] [place] [address] [place] [address] [facility] [address] [place] [address] documented as of this encounter Visit Diagnoses Not on filedocumented in this encounter Additional Health Concerns Infection Onset Date Last Indicated Resolved Time R/O COVID-19 11/08/2019 11/08/2019 11/11/2019 12:3 1 AM CDT R/O COVID-19 02/01/2020 02/01/2020 02/03/2020 2:00 AM POUNCING LATHE OPERATOR documented as of this encounter Care Teams Mixed Livestock Farmer Relationship Specialty Start Date End Date Jina Banda MD PCP - General Internal Medicine 06/20/16 12/03/21 documented as of this encounter
--- OUTSIDE RECORDS SUMMARY | 2024-08-09 11:34 | XMS_ITS | Encounter Summary ---
Author Organization [facility] Address [address] [place] [address] Care Team Providers Care Food Service Director Name Role Phone Jina Banda MD Primary Care Provider Unav ailable Encounter Details Date Type Department Care Team (Late st Contact Info) Description 12/20/2001 Outpatient Historical [facility] Internal Medicine - [place] [address] [address] [facility] [address] [place] [address] Jina Banda MD NO ADDRESS ON FILE Social History Tobacco Use Types Packs/Day Years Used Date Smoking Tobacco: Never Assessed Comments Unknown Sex and Gender Information Value Date Recorded Sex Assigned at Not on file Legal Sex Female 5:30 AM MOBILE PLANT OPERATORS Gender Identity Not on file Sexual Orientation Not on file documented as of this encounter Plan of Treatment Upcoming Encounters Date Type Department Care Team (Late st Contact Info) Description 09/08/2024 12:00 PM CDT Office Visit [facility] Heart and Vascular At [address] [place] [address] Randal Cooley MD [address] [place] [address] 2014 [place] [address] 10/27/2024 10:00 AM CDT Office Visit [facility] Heart and Vascular At [address] [place] [address] Randal Cooley MD [address] [place] [address] 2014 [place] [address] 10/28/2024 9:30 AM CDT Office Visit [facility] Urology [facility] [address] [facility] [address] [place] [address] [place] [address] [facility] [address] [place] [address] documented as of this encounter Visit Diagnoses Not on filedocumented in this encounter Additional Health Concerns Infection Onset Date Last Indicated Resolved Time R/O COVID-19 11/08/2019 11/08/2019 11/11/2019 12:3 1 AM CDT R/O COVID-19 02/01/2020 02/01/2020 02/03/2020 2:00 AM MOBILE PLANT OPERATORS documented as of this encounter Care Teams Food Service Director Relationship Specialty Start Date End Date Jina Banda MD PCP - General Internal Medicine 06/20/16 12/03/21 documented as of this encounter
--- OUTSIDE RECORDS SUMMARY | 2024-08-09 11:34 | XMS_ITS | Encounter Summary ---
Author Organization [facility] Address [address] [place] [address] Care Team Providers Care Bilingual Social Worker Name Role Phone Jina Banda MD Primary Care Provider Unav ailable Encounter Details Date Type Department Care Team (Late st Contact Info) Description 01/22/2006 Outpatient Historical [facility] Charo Haynes [address] [facility] [address] [place] [address] Other Screening Mammogram (Primary Dx) Social History Tobacco Use Types Packs/Day Years Used Date Smoking Tobacco: Never Assessed Comments Unknown Sex and Gender Information Value Date Recorded Sex Assigned at Not on file Legal Sex Female 5:30 AM FORMING OPERATOR Gender Identity Not on file Sexual Orientation Not on file documented as of this encounter Plan of Treatment Upcoming Encounters Date Type Department Care Team (Late st Contact Info) Description 09/08/2024 12:00 PM CDT Office Visit [facility] Heart and Vascular At [address] [place] [address] Randal Cooley MD [address] [place] [address] 2014 [place] [address] 10/27/2024 10:00 AM CDT Office Visit [facility] Heart and Vascular At [address] [place] [address] Randal Cooley MD [address] [place] [address] 2014 [place] [address] 10/28/2024 9:30 AM CDT Office Visit [facility] Urology [facility] [address] [facility] [address] [place] [address] [place] [address] [facility] [place] [address] [place] [address] documented as of this encounter Visit Diagnoses Diagnosis Other screening mammogram- Primary documented in this encounter Additional Health Concerns Infection Onset Date Last Indicated Resolved Time R/O COVID-19 11/08/2019 11/08/2019 11/11/2019 12:3 1 AM CDT R/O COVID-19 02/01/2020 02/01/2020 02/03/2020 2:00 AM FORMING OPERATOR documented as of this encounter Care Teams Bilingual Social Worker Relationship Specialty Start Date End Date Jina Banda MD PCP - General Internal Medicine 06/20/16 12/03/21 documented as of this encounter
--- OUTSIDE RECORDS SUMMARY | 2024-08-09 11:34 | XMS_ITS | Continuity of Care Document ---
Author Organization [facility] Address [address] [facility] [address] [place] [address] Phone Care Team Providers Care Glass Ribbon Machine Operator Assistant Name Role Phone Rafat Garces MD Unavailable [...] Diagnoses Date Provider Providers Copied on Encounter [facility], [address] [address], [place], [place], [facility], tel:[phone] [facility] No Information 8 Dez Douglass. [address], [place], [place], [id number] , [place]. tel: [phone] OFFICE/OUTPA TIENT VISIT EST [facility], [address] [place] [address], [facility], [phone] [facility] Body mass index (BMI) 28.0-28.9, adultBiceps tendinitis of right upper extremity 8 Dez Douglass. [address], [place], [place], [id number] , [place]. tel: [phone] OFFICE/OUTPA TIENT VISIT EST [facility], [address] [place] [address], [address], tel:[phone] [facility] Rotator cuff tear arthropathy of right shoulderOther specific arthropathies, not elsewhere classified, right shoulder 0- 8 Avelino Fowler. [address] [place] [address], [id number] . tel: [phone] OFFICE/OUTPA TIENT VISIT EST [facility], [address] [place] [address], [address], [place] tel:[phone] [facility] Impingement syndrome of right shoulder - 8 Avelino Fowler. [address] [place] [address], [id number] . tel: [phone] OFFICE/OUTPA TIENT VISIT EST [facility], [address] [place] [address], [facility], tel:[phone] [facility] Right shoulder tendonitis 0 8 Avelino Fowler. [address] [place] [address], [id number] . tel: [phone] OFFICE/OUTPA TIENT VISIT EST [facility], [address] [place] [address], [address], [place] tel:[phone] [facility] Impingement syndrome of right shoulder Jun-0 8 Avelino Fowler. [address] [place] [address], [id number] . tel: [phone] OFFICE/OUTPA TIENT VISIT [facility], [address] [place] [address], [address], [place] tel:[phone] [facility] Bursitis of right shoulderBody mass index (BMI) 28.0-28.9, adultTrochanter ic bursitis of left hipOther enthesopathies, not elsewhere classified 7 Avelino Malcolm. [address] [place] [address], [id number] . tel: [phone] Referring Provider: Jina Joseph, [address] [facility], [place], [address] . tel:[phone] OFFICE/OUTPA TIENT VISIT [facility], [address] [place] [address], [address], [place] tel:[phone] [facility] GANGLION CYST (chief complaint) Ganglion cyst 4 Darrel Jeffries. [address] [place] [address], [id number] . tel: [phone] OFFICE/OUTPA TIENT VISIT EST [facility], [address] [place] [address], [address], [place] tel:[phone] [facility] Medial epicondylitis of elbow 3 Avelino Fowler. [address] [place] [address], [id number] . tel: [phone] PREV VISIT EST AGE 40-64 CREW SCHEDULER [facility] [address], [place], [address], [place] tel:[phone] [facility] annual visit (chief complaint) Well Woman / Routine Publisher Assistant/PapDysuria Nov-0 201 2 Carmen Liriano. [address], [place], [place], [id number] . tel: [phone] Family History Family Member Type Diagnosis Age At Onset Father Problem (finding) coronary arterioscleros is Father Problem (finding) Payers Payer name Insurance type Covered libertarian ID Authoriza tiabi(s) Blue Access Choice PPO [id number] Social History Type Description Quantity Date Captured [...]
--- OUTSIDE RECORDS SUMMARY | 2024-08-09 11:34 | XMS_ITS | Encounter Summary ---
Author Organization [facility] Address [address] [place] [address] Care Team Providers Care Paper Box Cutter Name Role Phone Jina Banda MD Primary [...] on file Legal Sex Female 5:30 AM NURSE ORTHOPEDIC Gender Identity Not on file Sexual Orientation Not on file documented as of this encounter Plan of Treatment Upcoming Encounters Date Type Department Care Team (Late st Contact Info) Description 09/08/2024 12:00 PM CDT Office Visit [facility] Heart and Vascular At [address] [place] [address] Randal Cooley MD [address] [place] [address] 2014 [place] [address] 10/27/2024 10:00 AM CDT Office Visit [facility] Heart and Vascular At [address] 2014 [place] [address] Randal Cooley MD [address] [place] [address] 2014 [place] [address] 10/28/2024 9:30 AM CDT Office Visit [facility] Urology [facility] [address] [facility] [facility] [address] [address] [facility] [address] [place] [address] [place] [address] [facility] [address] [place] [address] documented as of this encounter Visit Diagnoses Diagnosis Heat exhaustion, unspecified- Primary documented in this encounter Additional Health Concerns Infection Onset Date Last Indicated Resolved Time R/O COVID-19 11/08/2019 11/08/2019 11/11/2019 12:3 1 AM CDT R/O COVID-19 02/01/2020 02/01/2020 02/03/2020 2:00 AM NURSE ORTHOPEDIC documented as of this encounter Care Teams Paper Box Cutter Relationship Specialty Start Date End Date Jina Banda MD PCP - General Internal Medicine 06/20/16 12/03/21 documented as of this encounter
--- OUTSIDE RECORDS SUMMARY | 2024-08-09 11:34 | XMS_ITS | Encounter Summary ---
Author Organization [facility] Address [address] [place] [address] Care Team Providers Care Nanofabrication Specialist Name Role Phone Jina Banda MD Primary Care Provider Unav ailable Encounter Details Date Type Department Care Team (Late st Contact Info) Description 04/25/2004 Outpatient Historical [facility] Internal Medicine - [facility] [address] [address] [facility] [address] [place] [address] Jina Banda MD NO ADDRESS ON FILE Social History Tobacco Use Types Packs/Day Years Used Date Smoking Tobacco: Never Assessed Comments Unknown Sex and Gender Information Value Date Recorded Sex Assigned at Not on file Legal Sex Female 5:30 AM RESEARCH SCHOLAR Gender Identity Not on file Sexual Orientation Not on file documented as of this encounter Plan of Treatment Upcoming Encounters Date Type Department Care Team (Late st Contact Info) Description 09/08/2024 12:00 PM CDT Office Visit [facility] Heart and Vascular At [address] [place] [address] Randal Cooley MD [address] [place] [address] 2014 [place] [address] 10/27/2024 10:00 AM CDT Office Visit [facility] Heart and Vascular At [address] [place] [address] Randal Cooley MD [address] [place] [address] 2014 [place] [address] 10/28/2024 9:30 AM CDT Office Visit [facility] Urology [facility] [address] [facility] [address] [place] [address] [place] [address] [facility] [address] [place] [address] documented as of this encounter Visit Diagnoses Not on filedocumented in this encounter Additional Health Concerns Infection Onset Date Last Indicated Resolved Time R/O COVID-19 11/08/2019 11/08/2019 11/11/2019 12:3 1 AM CDT R/O COVID-19 02/01/2020 02/01/2020 02/03/2020 2:00 AM RESEARCH SCHOLAR documented as of this encounter Care Teams Nanofabrication Specialist Relationship Specialty Start Date End Date Jina Banda MD PCP - General Internal Medicine 06/20/16 12/03/21 documented as of this encounter
--- OUTSIDE RECORDS SUMMARY | 2024-08-09 11:34 | XMS_ITS | Encounter Summary ---
Author Organization [facility] Address [address] [place] [address] Care Team Providers Care Alternative Financing Specialist Name Role Phone Jina Banda MD Primary Care Provider Unav ailable Encounter Details Date Type Department Care Team (Late st Contact Info) Description 09/05/1998 Outpatient Historical [facility] Internal Medicine - [facility] [address] [address] [facility] [address] [place] [address] Jina Banda MD NO ADDRESS ON FILE Social History Tobacco Use Types Packs/Day Years Used Date Smoking Tobacco: Never Assessed Comments Unknown Sex and Gender Information Value Date Recorded Sex Assigned at Not on file Legal Sex Female 5:30 AM CONFIGURATION ENGINEER Gender Identity Not on file Sexual Orientation Not on file documented as of this encounter Plan of Treatment Upcoming Encounters Date Type Department Care Team (Late st Contact Info) Description 09/08/2024 12:00 PM CDT Office Visit [facility] Heart and Vascular At [address] [place] [address] Randal Cooley MD [address] [place] [address] 2014 [place] [address] 10/27/2024 10:00 AM CDT Office Visit [facility] Heart and Vascular At [address] [place] [address] Randal Cooley MD [address] [place] [address] 2014 [place] [address] 10/28/2024 9:30 AM CDT Office Visit [facility] U[facility] [address] [facility] [place] [address] [place] [address] [place] [address] [facility] [address] [place] [address] documented as of this encounter Visit Diagnoses Not on filedocumented in this encounter Additional Health Concerns Infection Onset Date Last Indicated Resolved Time R/O COVID-19 11/08/2019 11/08/2019 11/11/2019 12:3 1 AM CDT R/O COVID-19 02/01/2020 02/01/2020 02/03/2020 2:00 AM CONFIGURATION ENGINEER documented as of this encounter Care Teams Alternative Financing Specialist Relationship Specialty Start Date End Date Jina Banda MD PCP - General Internal Medicine 06/20/16 12/03/21 documented as of this encounter
--- OUTSIDE RECORDS SUMMARY | 2024-08-09 11:34 | XMS_ITS | Encounter Summary ---
Author Organization [facility] Address [address] [place] [address] Care Team Providers Care Barratte Operator Name Role Phone Jina Banda MD Primary Care Provider Unav ailable Encounter Details Date Type Department Care Team (Latest Contact Info) Description 10/23/2000 Outpatient Historical [facility] Chato Aguilera MD [address] [place] [address] Other screening mammogram (Primary Dx) Social History Tobacco Use Types Packs/Day Years Used Date Smoking Tobacco: Never Assessed Comments Unknown Sex and Gender Information Value Date Recorded Sex Assigned at Not on file Legal Sex Female 5:30 AM PYROMETALLURGICAL ENGINEER Gender Identity Not on file Sexual Orientation Not on file documented as of this encounter Plan of Treatment Upcoming Encounters Date Type Department Care Team (Late st Contact Info) Description 09/08/2024 12:00 PM CDT Office Visit [facility] V[facility] At [address] [place] [address] Randal Cooley MD [address] [place] [address] 2014 [place] [address] 10/27/2024 10:00 AM CDT Office Visit [facility] At [address] [place] [address] Randal Cooley MD [address] [place] [address] 2014 [place] [address] 10/28/2024 9:30 AM CDT Office [facility] [address] [facility] [address] [place] [address] [place] [address] [facility] [address] [place] [address] documented as of this encounter Visit Diagnoses Diagnosis Other screening mammogram- Primary documented in this encounter Additional Health Concerns Infection Onset Date Last Indicated Resolved Time R/O COVID-19 11/08/2019 11/08/2019 11/11/2019 12:3 1 AM CDT R/O COVID-19 02/01/2020 02/01/2020 02/03/2020 2:00 AM PYROMETALLURGICAL ENGINEER documented as of this encounter Care Teams Barratte Operator Relationship Specialty Start Date End Date Jina Banda MD PCP - General Internal Medicine 06/20/16 12/03/21 documented as of this encounter
--- OUTSIDE RECORDS SUMMARY | 2024-08-09 11:34 | XMS_ITS | Encounter Summary ---
Author Organization [facility] Address [address] [place] [address] Care Team Providers Care Farm Machinery Assembler Name Role Phone Jina Banda MD Primary Care Provider Unav ailable Encounter Details Date Type Department Care Team (Late st Contact Info) Description 12/22/2005 Outpatient Historical [facility] Internal Medicine - [facility] [address] [address] [facility] [address] [place] [address] Jina Banda MD NO ADDRESS ON FILE Social History Tobacco Use Types Packs/Day Years Used Date Smoking Tobacco: Never Assessed Comments Unknown Sex and Gender Information Value Date Recorded Sex Assigned at Not on file Legal Sex Female 5:30 AM COMPUTER GAME PROGRAMMER Gender Identity Not on file Sexual [...] [facility] [address] [place] [address] Randal Cooley MD [address] [place] [address] 2014 [place] [address] 10/27/2024 10:00 AM CDT Office Visit [facility] At [address] [place] [address] Randal Cooley MD [address] [place] [address] 2014 [place] [address] 10/28/2024 9:30 AM CDT Office Visit [facility] [address] [facility] [address] [place] [address] [place] [address] [facility] [address] [place] [address] documented as of this encounter Visit Diagnoses Not on filedocumented in this encounter Additional Health Concerns Infection Onset Date Last Indicated Resolved Time R/O COVID-19 11/08/2019 11/08/2019 11/11/2019 12:3 1 AM CDT R/O COVID-19 02/01/2020 02/01/2020 02/03/2020 2:00 AM COMPUTER GAME PROGRAMMER documented as of this encounter Care Teams Farm Machinery Assembler Relationship Specialty Start Date End Date Jina Banda MD PCP - General Internal Medicine 06/20/16 12/03/21 documented as of this encounter
--- OUTSIDE RECORDS SUMMARY | 2024-08-09 11:34 | XMS_ITS | Encounter Summary ---
Author Organization [facility] Address [address] [place] [address] Care Team Providers Care Siene Maker Name Role Phone Jina Banda MD Primary Care Provider Unav ailable Encounter Details Date Type Department Care Team (Late st Contact Info) Description 07/09/2000 Outpatient Historical [facility] Internal Medicine - [facility] [address] [address] [facility] [address] [place] [address] Jina Banda MD NO ADDRESS ON FILE Social History Tobacco Use Types Packs/Day Years Used Date Smoking Tobacco: Never Assessed Comments Unknown Sex and Gender Information Value Date Recorded Sex Assigned at Not on file Legal Sex Female 5:30 AM DIVER TENDER Gender Identity Not on file Sexual Orientation Not on file documented as of this encounter Plan of Treatment Upcoming Encounters Date Type Department Care Team (Late st Contact Info) Description 09/08/2024 12:00 PM CDT Office Visit [facility] Heart and Vascular At [address] [place] [address] Randal Cooley MD [address] [place] [address] [address] [place] [address] 10/27/2024 10:00 AM CDT Office Visit [facility] Heart and Vascular At [address] [place] [address] Randal Cooley MD [address] [place] [address] 2014 [place] [address] 10/28/2024 9:30 AM CDT Office Visit [facility] Urology [facility] [address] [facility] [address] [place] [address] [place] [address] [facility] [address] [place] [address] documented as of this encounter Visit Diagnoses Not on filedocumented in this encounter Additional Health Concerns Infection Onset Date Last Indicated Resolved Time R/O COVID-19 11/08/2019 11/08/2019 11/11/2019 12:3 1 AM CDT R/O COVID-19 02/01/2020 02/01/2020 02/03/2020 2:00 AM DIVER TENDER documented as of this encounter Care Teams Siene Maker Relationship Specialty Start Date End Date Jina Banda MD PCP - General Internal Medicine 06/20/16 12/03/21 documented as of this encounter
--- OUTSIDE RECORDS SUMMARY | 2024-08-09 11:34 | XMS_ITS | Encounter Summary ---
Author Organization [facility] Address [address] [place] [address] Care Team Providers Care Linux Support Engineer Name Role Phone Jina Banda MD Primary Care Provider Unav ailable Encounter Details Date Type Department Care Team (Late st Contact Info) Description 07/01/2002 Outpatient Historical [facility] Internal Medicine - [facility] [address] [address] [facility] [address] [place] [address] Jina Banda MD NO ADDRESS ON FILE Social History Tobacco Use Types Packs/Day Years Used Date Smoking Tobacco: Never Assessed Comments Unknown Sex and Gender Information Value Date Recorded Sex Assigned at Not on file Legal Sex Female 5:30 AM PATIENT OBSERVER Gender Identity Not on file Sexual Orientation Not on file documented as of this encounter Plan of Treatment Upcoming Encounters Date Type Department Care Team (Late st Contact Info) Description 09/08/2024 12:00 PM CDT Office Visit [facility] At [address] [place] [address] Randal Cooley MD [address] [place] [address] 2014 [place] [address] 10/27/2024 10:00 AM CDT Office Visit [facility] At [address] [place] [address] Randal Cooley MD [address] [place] [address] 2014 [place] [address] 10/28/2024 9:30 AM CDT Office Visit [facility] [address] [facility] [address] [place] [address] [place] [address] [facility] [address] [place] [address] documented as of this encounter Visit Diagnoses Not on filedocumented in this encounter Additional Health Concerns Infection Onset Date Last Indicated Resolved Time R/O COVID-19 11/08/2019 11/08/2019 11/11/2019 12:3 1 AM CDT R/O COVID-19 02/01/2020 02/01/2020 02/03/2020 2:00 AM PATIENT OBSERVER documented as of this encounter Care Teams Linux Support Engineer Relationship Specialty Start Date End Date Jina Banda MD PCP - General Internal Medicine 06/20/16 12/03/21 documented as of this encounter
--- OUTSIDE RECORDS SUMMARY | 2024-08-09 11:34 | XMS_ITS | Encounter Summary ---
Author Organization [facility] Address [address] [place] [address] Care Team Providers Care Manager Law Name Role Phone Jina Banda MD Primary [...] on file Legal Sex Female 5:30 AM GENERAL SALES MANAGER Gender Identity Not on file Sexual Orientation Not on file documented as of this encounter Plan of Treatment Upcoming Encounters Date Type Department Care Team (Late st Contact Info) Description 09/08/2024 12:00 PM CDT Office Visit [facility] Heart and Vascular At [address] [place] [address] Randal Cooley MD [address] [place] [address] 2014 [place] [address] 10/27/2024 10:00 AM CDT Office Visit [facility] Heart and Vascular At [address] [place] [address] Randal Cooley MD [address] [place] [address] 2014 [place] [address] 10/28/2024 9:30 AM CDT Office Visit [facility] Urology [facility] [address] [facility] [address] [place] [address] [place] [address] [facility] [address] [place] [address] documented as of this encounter Visit Diagnoses Diagnosis Acute maxillary sinusitis- Primary documented in this encounter Additional Health Concerns Infection Onset Date Last Indicated Resolved Time R/O COVID-19 11/08/2019 11/08/2019 11/11/2019 12:3 1 AM CDT R/O COVID-19 02/01/2020 02/01/2020 02/03/2020 2:00 AM GENERAL SALES MANAGER documented as of this encounter Care Teams Manager Law Relationship Specialty Start Date End Date Jina Banda MD PCP - General Internal Medicine 06/20/16 12/03/21 documented as of this encounter
--- OUTSIDE RECORDS SUMMARY | 2024-08-09 11:34 | XMS_ITS | Encounter Summary ---
Author Organization [facility] Address [address] [place] [address] Care Team Providers Care Software Team Leader Name Role Phone Jina Banda MD Primary Care Provider Unav ailable Encounter Details Date Type Department Care Team (Late st Contact Info) Description 02/25/2006 Outpatient Historical [facility] Internal Medicine - [facility] [address] [address] [facility] [address] [place] [address] Jina Banda MD NO ADDRESS ON FILE Social History Tobacco Use Types Packs/Day Years Used Date Smoking Tobacco: Never Assessed Comments Unknown Sex and Gender Information Value Date Recorded Sex Assigned at Not on file Legal Sex Female 5:30 AM BILLING ANALYST Gender Identity Not on file Sexual Orientation Not on file documented as of this encounter Plan of Treatment Upcoming Encounters Date Type Department Care Team (Late st Contact Info) Description 09/08/2024 12:00 PM CDT Office Visit [facility] Heart and V[facility] At [address] [place] [address] Randal Cooley MD [address] [place] [address] 2014 [place] [address] 10/27/2024 10:00 AM CDT Office Visit [facility] At [address] [place] [address] Randal Cooley MD [address] [place] [address] 2014 [place] [address] 10/28/2024 9:30 AM CDT Office Visit [facility] [address] [facility] [address] [place] [address] [place] [address] [facility] [address] [place] [address] documented as of this encounter Visit Diagnoses Not on filedocumented in this encounter Additional Health Concerns Infection Onset Date Last Indicated Resolved Time R/O COVID-19 11/08/2019 11/08/2019 11/11/2019 12:3 1 AM CDT R/O COVID-19 02/01/2020 02/01/2020 02/03/2020 2:00 AM BILLING ANALYST documented as of this encounter Care Teams Software Team Leader Relationship Specialty Start Date End Date Jina Banda MD PCP - General Internal Medicine 06/20/16 12/03/21 documented as of this encounter
--- OUTSIDE RECORDS SUMMARY | 2024-08-09 11:34 | XMS_ITS | Encounter Summary ---
Author Organization [facility] Address [address] [facility] Attn: [place] [address] Care Team Providers Care Online Editor Name Role Phone Jina Banda MD Primary Care Provider Unav ailable Encounter Details Date Type Department Care Team (Late st Contact Info) Description 04/08/1989 Outpatient Historical Sahil Tsang MD [address] [place] [address] Social History Tobacco Use Types Packs/Day Years Used Date Smoking Tobacco: Never Assessed Comments Unknown Sex and Gender Information Value Date Recorded Sex Assigned at Not on file Legal Sex Female 5:30 AM COMPOUND COATING MACHINE OFFBEARER Gender Identity Not on file Sexual Orientation Not on file documented as of this encounter Plan of Treatment Upcoming Encounters Date Type Department Care Team (Late st Contact Info) Description 09/08/2024 12:00 PM CDT Office Visit [facility] Heart and Vascular At [address] [place] [address] Randal Cooley MD [address] [place] [address] 2014 [place] [address] 10/27/2024 10:00 AM CDT Office Visit [facility] Heart and Vascular At [address] [place] [address] Randal Cooley MD [address] [place] [address] 2014 [place] [address] 10/28/2024 9:30 AM CDT Office Visit [facility] Urology [facility] [address] [facility] [address] [place] [address] [place] [address] [facility] 260 [place] [address] documented as of this encounter Visit Diagnoses Not on filedocumented in this encounter Additional Health Concerns Infection Onset Date Last Indicated Resolved Time R/O COVID-19 11/08/2019 11/08/2019 11/11/2019 12:3 1 AM CDT R/O COVID-19 02/01/2020 02/01/2020 02/03/2020 2:00 AM COMPOUND COATING MACHINE OFFBEARER documented as of this encounter Care Teams Online Editor Relationship Specialty Start Date End Date Jina Banda MD PCP - General Internal Medicine 06/20/16 12/03/21 documented as of this encounter
--- OUTSIDE RECORDS SUMMARY | 2024-08-09 11:34 | XMS_ITS | Encounter Summary ---
Author Organization [facility] Address [address] [facility] [place] [address] Care Team Providers Care Hoop Punch Operator Helper Name Role Phone Mervin Jay DO Primary Care Provider [phone] Encounter Details Date Type Department Care Team (Late st Contact Info) Description 09/26/[address] [facility] [address] [place] [address] Jakob Marr MD [address] [place] [address] Social History Tobacco Use Types Packs/Day Years Used Date Smoking Tobacco: Never Smokeless Tobacco: Never Alcohol Use Standard Drinks/Week Comments No 0 (1 standard drink = 0.6 oz pur e alcohol) Comments No Sex and Gender Information Value Date Recorded Sex Assigned at Not on file Legal Sex Female 6:26 AM PROFILE SAW OPERATOR Gender Identity Not on file Sexual Orientation Not on file documented as of this encounter Plan of Treatment Not on file documented as of this encounter Procedures Procedure Name Priority Date/Time Associated Diagnosis Comments DERMATOPATHOLOGY Routine 09/25/2020 12:0 0 AM CDT documented in this encounter Results * DERMATOPATHOLOGY (09/25/2020 12:00 AM CDT) Case Report Dermatopathology Report Case: [id number] Authorizing Provider: Jakob Marr MD Collected: 09/25/2020 12:00 AM Ordering Location: [facility] Received: 09/26/2020 01:47 PM Pathologist: Bonny Toure MD Specimen: Skin, left medial lund 1:17 PM CDT DERMATOPATHOLOGY LABORATORY Final Diagnosis Specimen A. SKIN, left medial lund: DERMATOFIBROMA, SUPERFICIAL ASPECT OF (D23.9) EPIDERMAL NECROSIS SUGGESTIVE OF EXCORIATION (L98.499) (see microscopic description) 1:17 PM CDT DERMATOPATHOLOGY LABORATORY at 1317 CDT Clinical History DF vs irritated nevus vs [...] characteristic determined by the Dermatopathology Laboratory at [facility], directed by Dr. Bruce Varghese. These tests need not be, and therefore are not, approved by the [place] Food and Drug Administration. The tests are used for clinical purposes. Billing Codes Specimen Charges Stain Charges 20976 1 1 1:17 PM CDT DERMATOPATHOLOGY LABORATORY Embedded Images 1:17 PM CDT DERMATOPATHOLOGY LABORATORY Pathology/Cytolog y TISSUE SPECIMEN FROM SKIN / Unknown 09/25/2020 09/26/2020 1:47 PM CDT Jakob Marr MD LAB - PATHOLOGY/CYTOLOGY ORDERA BLES Final Result DERMATOPATHOLOGY LABORATORY [facility] - Department of Dermatology [facility] Medicine [address] [place] [address], [address] [phone] documented in this encounter Visit Diagnoses Not on filedocumented in this encounter Care Teams Hoop Punch Operator Helper Relationship Specialty Start Date End Date Mervin Jay DO PCP - General 09/26/20 documented as of this encounter
--- OUTSIDE RECORDS SUMMARY | 2024-08-09 11:34 | XMS_ITS | Encounter Summary ---
Author Organization [facility] Address [address] [place] [address] Care Team Providers Care Retail Service Representative Name Role Phone Jina Banda MD Primary Care Provider Unav ailable Encounter Details Date Type Department Care Team (Late st Contact Info) Description 02/12/2000 Outpatient Historical [facility] Internal Medicine - [facility] [address] [address] [facility] [address] [place] [address] Jina Banda MD NO ADDRESS ON FILE Social History Tobacco Use Types Packs/Day Years Used Date Smoking Tobacco: Never Assessed Comments Unknown Sex and Gender Information Value Date Recorded Sex Assigned at Not on file Legal Sex Female 5:30 AM ASSIGNMENT EDITOR Gender Identity Not on file Sexual Orientation Not on file documented as of this encounter Plan of Treatment Upcoming Encounters Date Type Department Care Team (Late st Contact Info) Description 09/08/2024 12:00 PM CDT Office Visit [facility] Heart and Vascular At [address] [place] [address] Randal Cooley MD [address] [place] [address] 2014 [place] [address] 10/27/2024 10:00 AM CDT Office Visit [facility] Heart and Vascular At [address] [place] [address] Randal Cooley MD [address] [place] [address] 2014 [place] [address] 10/28/2024 9:30 AM CDT Office Visit [facility] Urology [facility] [address] [facility] [address] [place] [address] [place] [address] [facility] [address] [place] [address] documented as of this encounter Visit Diagnoses Not on filedocumented in this encounter Additional Health Concerns Infection Onset Date Last Indicated Resolved Time R/O COVID-19 11/08/2019 11/08/2019 11/11/2019 12:3 1 AM CDT R/O COVID-19 02/01/2020 02/01/2020 02/03/2020 2:00 AM ASSIGNMENT EDITOR documented as of this encounter Care Teams Retail Service Representative Relationship Specialty Start Date End Date Jina Banda MD PCP - General Internal Medicine 06/20/16 12/03/21 documented as of this encounter
--- OUTSIDE RECORDS SUMMARY | 2024-08-09 11:34 | XMS_ITS | Encounter Summary ---
Author Organization [facility] Address [address] [place] [address] Care Team Providers Care Certified Dental Assistant Name Role Phone Jina Banda MD Primary Care Provider Unav ailable Encounter Details Date Type Department Care Team (Late st Contact Info) Description 02/25/2006 Outpatient Historical [facility] Internal Medicine - [facility] [address] [address] [facility] [address] [place] [address] Jina Banda MD NO ADDRESS ON FILE Social History Tobacco Use Types Packs/Day Years Used Date Smoking Tobacco: Never Assessed Comments Unknown Sex and Gender Information Value Date Recorded Sex Assigned at Not on file Legal Sex Female 5:30 AM DIRECTOR OF STRATEGIC COMMUNICATIONS Gender Identity Not on file Sexual Orientation Not on file documented as of this encounter Plan of Treatment Upcoming Encounters Date Type Department Care Team (Late st Contact Info) Description 09/08/2024 12:00 PM CDT Office Visit [facility] Heart and Vascular At [address] [place] [address] [place] [address] Randal Cooley MD [address] [place] [address] 2014 [place] [address] 10/27/2024 10:00 AM CDT Office Visit [facility] Heart and Vascular At [address] [place] [address] [place] [address] Randal Cooley MD [address] [place] [address] 2014 [place] [address] 10/28/2024 9:30 AM CDT Office Visit [facility] Urology [facility] [address] [facility] [address] [place] [address] [place] [address] [facility] [address] [place] [address] documented as of this encounter Visit Diagnoses Not on filedocumented in this encounter Additional Health Concerns Infection Onset Date Last Indicated Resolved Time R/O COVID-19 11/08/2019 11/08/2019 11/11/2019 12:3 1 AM CDT R/O COVID-19 02/01/2020 02/01/2020 02/03/2020 2:00 AM DIRECTOR OF STRATEGIC COMMUNICATIONS documented as of this encounter Care Teams Certified Dental Assistant Relationship Specialty Start Date End Date Jina Banda MD PCP - General Internal Medicine 06/20/16 12/03/21 documented as of this encounter
--- OUTSIDE RECORDS SUMMARY | 2024-08-09 11:34 | XMS_ITS | Encounter Summary ---
Author Organization [facility] Address [address] [place] [address] Care Team Providers Care Telegraph Messenger Name Role Phone Jina Banda MD Primary Care Provider Unav ailable Encounter Details Date Type Department Care Team (Late st Contact Info) Description 02/25/2006 Orders Only [facility] Internal Medicine - [facility] [address] [address] [facility] [address] [place] [address] Jina Banda MD NO ADDRESS ON FILE Social History Tobacco Use Types Packs/Day Years Used Date Smoking Tobacco: Never Assessed Comments Unknown Sex and Gender Information Value Date Recorded Sex Assigned at Not on file Legal Sex Female 5:30 AM INVESTIGATIVE SHOPPER Gender Identity Not on file Sexual Orientation [...] TEMPERATURE: 98.1??f Oral WEIGHT: 146lbs NURSE NAME: Nohemy Hernandez M ALLERGIES: Allergies are as listed. MEDICATIONS: [...] loss. Is not followed by [facility]. Saw customer service attendant and had normal exam. ENT: No hearing [...] tightening. ASSESSMENT/PLAN: 244.9-HYPOTHYROIDISM LAB ORDERS: Order number: [id number] Test Ordered: LIPID PANEL 7600 Order number: [id number] Test Ordered: TSH 899 Order number: [id number] Test Ordered: GLUCOSE 483 280.9-IRON DEFICIENCY ANEMIA LAB ORDERS: Order number: [id number] Test Ordered: CBC (INCLUDES DIFF/PLT) 6399 719.45-PAIN JOINT HIP ASSESSMENT: Likely more of bursitis. If does not resolve, refer to orthopedist. LAB ORDERS: Order number: [id number] Test Ordered: XRAY HIP LEFT V70.0-ROUTINE GENERAL MEDICAL EXAMINATION V06.5-NEED FOR VACC TETANUS-DIPHTHERIA (TD) LAB ORDERS: Order number: [id number] Test Ordered: INJ-TETANUS AND DIPTHERIA TOXOID 26535 HEALTH MAINTENANCE: LAST PAP DATE: . LAST MAMMOGRAM DATE: . LAST TD: today PREVENTIVE COUNSELING The patient was counseled regarding regular self- examination of the breasts on a monthly basis, regular sustained exercise for at least 30 minutes 3-4 times per week, adult immunizations, routine screening interval for mammogram as recommended by the [employer] and ACOG, importance of regular [...] [facility] [address] [place] [address] Randal Cooley MD [address] [place] [address] 2014 [place] [address] 10/27/2024 10:00 AM CDT Office Visit [facility] Heart and V[facility] At [address] [place] [address] Randal Cooley MD [address] [place] [address] [address] [place] [address] 10/28/2024 9:30 AM CDT Office Visit [facility] [place] [address] [place] [address] [place] [address] [place] [address] documented as of this encounter Visit Diagnoses Not on filedocumented in this encounter Additional Health Concerns Infection Onset Date Last Indicated Resolved Time R/O COVID-19 11/08/2019 11/08/2019 11/11/2019 12:3 1 AM CDT R/O COVID-19 02/01/2020 02/01/2020 02/03/2020 2:00 AM INVESTIGATIVE SHOPPER documented as of this encounter Care Teams Telegraph Messenger Relationship Specialty Start Date End Date Jina Banda MD PCP - General Internal Medicine 06/20/16 12/03/21 documented as of this encounter
--- OUTSIDE RECORDS SUMMARY | 2024-08-09 11:34 | XMS_ITS | Continuity of Care Document ---
Author Organization [facility] Address [address] [place] [address] Phone Care Team Providers Care Production Line Worker Name Role Phone Niharika Tomlinson OD Unavailable [...] Diagnoses Date Provider Providers Copied on Encounter [facility], [address] [place] [address], [id number] , [place] tel:[phone] [facility] Post-op cataract surgery (chief complaint) PresbyopiaPresenc e of intraocular lensOther specified postprocedural statesCrystalline deposits in vitreous body, left eyeHypermetropia, bilateralRegular astigmatism, bilateral Mar-2 0-202 4 [address]. [address] [place] [address], [id number], [place]. tel:[phone] Referring Provider: Niharika Martinez, [address] [place] [address], [id number]. tel:[phone] [facility], [address] [place] [address], [id number] , [place] tel:[phone] [facility] Post-op cataract surgery (chief complaint) Cataract extraction status, right eye Mar-0 5-202 4 Davi Bundy. [address] [place] [address], [id number], [place]. [phone] Referring Provider: Niharika Mratinez, [address] [place] [address], [id number]. tel:[phone] [facility], [address] [place] [address], [id number] , [place] tel:[phone] [facility] Eye Surgery-D ecatur Combined forms of age-related cataract, right eye Mar-0 4-202 4 Eladio Helm. [address] [place] [address], [id number], [place]. tel:[phone] Referring Provider: Volodymyr Vicente, [address] [place] [address], [id number]. tel:[phone] [facility], [address] [place] [address], [id number] , [place] tel:[phone] [facility] Combined forms of age-related cataract, right eye Mar-0 3-202 4 Eladio Helm. [address] [place] [address], [id number], [place]. tel:[phone] [facility], [address] [place] [address], [id number] , [place] tel:[phone] [facility] Post-op cataract surgery (chief complaint) Cataract extraction status, left eye 4 Radha Petit. [address] [place] [address], [id number], [place]. tel:[phone] Referring Provider: Damaso Alberto, [address] [place] [address], [id number]. tel:[phone] [facility], [address] [place] [address], [id number] , [place] tel:[phone] [facility] Eye Surgery- ecatur No Information 4 Eladio Helm. [address] [place] [address], [id number], [place]. tel:[phone] Referring Provider: Volodymyr Vicente, [address] [place] [address], [id number]. tel:[phone] [facility], [address] [place] [address], [id number] , [place] tel:[phone] [facility] No Information 4 Eladio Helm. [address] [place] [address], [id number], [place]. tel:[phone] [facility], [address] [place] [address], [id number] , [place] tel:[phone] [facility] cataract evaluation (chief complaint) Regular astigmatism, bilateralPresbyop iaCrystalline deposits in vitreous body, left eye 4 Eladio Helm. [address] [place] [address], [id number], [place]. tel:[phone] Other Provider: Radha brito, [facility] [address] [place], [address]. tel:[phone] ring Provider: Brando Hernandez, [address] [place], [address]. tel:[phone] Family History Family Member Type Diagnosis Age [...] ts Payers Payer name Insurance type Covered alliance party ID Authoriza tion(s) No Information Social [...]
--- OUTSIDE RECORDS SUMMARY | 2024-08-09 11:34 | XMS_ITS | Encounter Summary ---
Author Organization [facility] Address [address] [place] [address] Phone Care Team Providers Care Radio Mechanic Name Role Phone Mervin Jay DO Primary Care Provider [phone] Encounter Details Date Type Department Care Team (Late st Contact Info) Description 10/17/2019 Orders Only [facility] Scanning, Provider Social History Tobacco Use Types Packs/Day Years Used Date Smoking Tobacco: Never Assessed Comments Unknown Sex and Gender Information Value Date Recorded Sex Assigned at Not on file Legal Sex Female 6:45 PM SIDE PIECE COVERER Gender Identity Not on file Sexual Orientation [...] on filedocumented in this encounter Care Teams Radio Mechanic Relationship Specialty Start Date End Date Mervin Jay DO PCP - General Internal Medicine 10/21/21 documented as of this encounter
--- OUTSIDE RECORDS SUMMARY | 2024-08-09 11:34 | XMS_ITS | Encounter Summary ---
Author Organization [facility] Address [address] [place] [address] Care Team Providers Care Eyedotter Name Role Phone Jina Banda MD Primary Care Provider Unav ailable Encounter Details Date Type Department Care Team (Late st Contact Info) Description 10/05/2000 Outpatient Historical [facility] Internal Medicine - [facility] [address] [address] [facility] [address] [place] [address] Jina Banda MD NO ADDRESS ON FILE Social History Tobacco Use Types Packs/Day Years Used Date Smoking Tobacco: Never Assessed Comments Unknown Sex and Gender Information Value Date Recorded Sex Assigned at Not on file Legal Sex Female 5:30 AM AIR CARGO AGENT Gender Identity Not on file Sexual Orientation Not on file documented as of this encounter Plan of Treatment Upcoming Encounters Date Type Department Care Team (Late st Contact Info) Description 09/08/2024 12:00 PM CDT Office Visit [facility] Heart and Vascular At [address] [place] [address] Randal Cooley MD [address] [place] [address] 2014 [place] [address] 10/27/2024 10:00 AM CDT Office Visit [facility] At [address] [place] [address] Randal Cooley MD [address] [place] [address] 2014 [place] [address] 10/28/2024 9:30 AM CDT Office Visit [facility] Urology [facility] [address] [facility] [address] [place] [address] [place] [address] [facility] [address] [place] [address] documented as of this encounter Visit Diagnoses Not on filedocumented in this encounter Additional Health Concerns Infection Onset Date Last Indicated Resolved Time R/O COVID-19 11/08/2019 11/08/2019 11/11/2019 12:3 1 AM CDT R/O COVID-19 02/01/2020 02/01/2020 02/03/2020 2:00 AM AIR CARGO AGENT documented as of this encounter Care Teams Eyedotter Relationship Specialty Start Date End Date Jina Banda MD PCP - General Internal Medicine 06/20/16 12/03/21 documented as of this encounter
--- OUTSIDE RECORDS SUMMARY | 2024-08-09 11:34 | XMS_ITS | Encounter Summary ---
Author Organization [facility] Address [address] [place] [address] Care Team Providers Care Postpartum Nurse Name Role Phone Jina Banda MD Primary Care Provider Unav ailable Encounter Details Date Type Department Care Team (Late st Contact Info) Description 08/15/2002 Outpatient Historical [facility] Internal Medicine - [facility] [address] [address] [facility] [address] [place] [address] Jina Banda MD NO ADDRESS ON FILE Social History Tobacco Use Types Packs/Day Years Used Date Smoking Tobacco: Never Assessed Comments Unknown Sex and Gender Information Value Date Recorded Sex Assigned at Not on file Legal Sex Female 5:30 AM COREROOM FOUNDRY LABORER Gender Identity Not on file Sexual Orientation Not on file documented as of this encounter Plan of Treatment Upcoming Encounters Date Type Department Care Team (Late st Contact Info) Description 09/08/2024 12:00 PM CDT Office Visit [facility] Heart and Vascular At [address] [place] [address] Randal Cooley MD [address] [place] [address] [address] [place] [address] 10/27/2024 10:00 AM CDT Office Visit [facility] Heart [facility] V[facility] At [address] [place] [address] Randal Cooley MD [address] [place] [address] [address] [place] [address] 10/28/2024 9:30 AM CDT Office Visit [facility] Urology [facility] [address] [facility] [address] [place] [address] [place] [address] [facility] [address] [place] [address] documented as of this encounter Visit Diagnoses Not on filedocumented in this encounter Additional Health Concerns Infection Onset Date Last Indicated Resolved Time R/O COVID-19 11/08/2019 11/08/2019 11/11/2019 12:3 1 AM CDT R/O COVID-19 02/01/2020 02/01/2020 02/03/2020 2:00 AM COREROOM FOUNDRY LABORER documented as of this encounter Care Teams Postpartum Nurse Relationship Specialty Start Date End Date Jina Banda MD PCP - General Internal Medicine 06/20/16 12/03/21 documented as of this encounter
--- OUTSIDE RECORDS SUMMARY | 2024-08-09 11:34 | XMS_ITS | Clinical Summary ---
Author Organization [facility] Address [facility] [place] [address] Care Team Providers Care Mold Construction Supervisor Name Role Phone Mervin Jay DO Primary Care Provider [phone] Allergies Active Allergy Reactions Criticality Noted Date [...] (01/06/2022): Added automatically from request for surgery [id number] Encounters Date Type Department Care Team Description 06/30/2024 Results Follow-Up [facility] Allergy and Immunology [address] [facility] Office [address] [place] [address] Andrzej Wyman MD Strep pneumoniae antibody serotypes 06/27/2024 11:35 AM CDT Lab [facility] [address] [facility] [address] [place] [address] Recurrent pneumonia; IgA deficiency (HCC) 06/27/2024 10:50 AM CDT Office Visit [facility] Allergy and Immunology [address] [facility] [address] [place] [address] Andrzej Wyman MD Recurrent pneumonia (Primary Dx); IgA deficiency (HCC) 05/31/2024 Orders Only [facility] Pediatric Allergy and Pulmonology [facility] 2nd [place] [address] [place] [address] Andrzej Wyman MD from Last 3 Months Surgical History Surgery [...] on file Legal Sex Female 6:45 PM CORN PRESS OPERATOR Gender Identity Not on file Sexual Orientation Not on file Obstetrics History Last Filed Vital Signs Vital Sign Reading Time Taken Comments Blood Pressure 121/73 06/27/2024 10:48 AM CDT Pulse 64 06/27/2024 10:48 AM CDT Temperature 36.8 C (98.2 F) 06/27/2024 10:48 AM CDT Respiratory Rate 15 01/23/2022 11:05 AM CORN PRESS OPERATOR Oxygen Saturation 97% 06/27/2024 10:48 AM CDT Inhaled Oxygen Concentration - - Weight 70.8 kg (156 lb) 06/27/2024 10:48 AM CDT Height 154.9 cm (5' 1) 06/27/2024 10:48 AM CDT Body Mass Index 29.48 06/27/2024 10:48 AM CDT Plan of Treatment Health Maintenance Due [...] - 2023-2 5 season) 2023 02/27/2021, 07/23/2020 Well Visit 65+ 12/26/2023 Influenza Vaccine (Season Ended) 2024 12/17/2020, 01/24/2020, 12/08/2018, Additional history exists Colon Cancer Screening-Colonoscopy 01/24/20322021 Pneumococcal vaccine 65+ Completed 025, 10/17/2019, 08/19/2019 Procedures Procedure Name Priority Date/Time Associated Diagnosis Comments CLOSTRIDIUM DIFFICILE TOXIN Routine 07/05/2024 11:54 AM CDT Lymphocytic colitis STREP PNEUMONIAE ANTIBODY SEROTYPES Routine 06/27/2024 12:08 PM CDT Recurrent pneumonia IgA deficiency (HCC) MYCOPLASMA PNEUMONIAE ANTIBODY, IGG AND IGM Routine 05/31/2024 11:34 AM CDT COLONOSCOPY 01/23/2022 10:27 AM CORN PRESS OPERATOR from Last 3 Months or Most Recently Relevant to Health Maintenance Results * Clostridium difficile toxin Stool (07/05/2024 11:54 AM CDT) C difficile Toxins A+B, EIA Negative Negative [facility] - 01 Stool 07/05/2024 11:5 4 AM CDT 07/05/2024 Comment:ST Narrative [facility] - 07/06/2024 4:11 PM CDT Performed at: - [address] [id number] Hand Thermal Cutter: Timo Mora PhD, Phone: [phone] us Katelyn Toure NP LAB MICROBIOLOGY - GENERAL ORDERABLES Final Result [facility] - 01 * Strep pneumoniae antibody serotypes (06/27/2024 12:08 PM CDT) S. pneumo Type 1 (1) 23.2 >=1.0 mcg/mL [facility] S. pneumo Type 2 (2) [...] pneumo Type 33F (70) 5.9 >=1.0 mcg/mL [facility] Pneum Ab 23 [...] developed and its performance characteristics determined by [facility] in a manner consistent with CLIA requirements. This test has not been cleared or approved by the U.S. Food and Drug Administration. Test Performed by: [facility] [address] [place] [address] Hand Thermal Cutter: Vandana Simons Ph.D.; CLIA# [id number] Blood 06/27/2024 12:0 8 PM CDT 06/27/2024 2:24 PM CDT us Andrzej Wyman MD LAB BLOOD ORDERABLES Fi nal Result [facility] Department [place] [address] [facility] ref [facility] * (ABNORMAL) Mycoplasma pneumoniae antibody, IgG and IgM (05/31/2024 11:34 AM CDT) [facility] M. pneumoniae IgG 1,337(H) 0 - 99 [...] pneumoniae IgM 1,174(H) 0 - 769 U/mL [facility] - 01 Comment: Negative <770 Clinically significant [...] - 06/01/2024 4:11 PM CDT Performed at: - [address] [id number] Hand Thermal Cutter: Timo Mora PhD, Phone: [phone] Andrzej Wyman MD LAB MICROBIOLOGY - GENE RAL ORDERABLES Final Result [facility] - 01 * COLONOSCOPY (01/23/2022 10:27 AM CORN PRESS OPERATOR) Anatomical Region Laterality Modality Other Narrative Procedure Note Ez Agarwal MD - 01/23/2022 10:27 AM CST [facility] Patient Name: Ely Wei Procedure Date: 01/23/2022 10:27AM Date of : 1960 Admit Type: Outpatient Age: 61 Gender: Female Attending MD: Ez Agarwal M.D. Room: [facility] ENDOSCOPY ROOM 8 Note Status: [...] The scope was passed under direct vision.The [id number] endoscope was introduced through the anus and [...] On: 01/23/2022 10:27 AM Recognized by the [employer] for promoting quality in endoscopy Ez Agarwal MD ENDOSCOPY PROCEDURES F inal Result from Last 3 Months or Most Recently Relevant to Health Maintenance Insurance MEDICARE [facility] MEDICARE SUPPLEMENT MEDICARE [facility] MEDICARE SUPPLEMENT Advance Directives For more information, please contact: [phone] * Full Code (Latest Code Status on File) Date Activated Date Inactivated Comments 01/23/2022 9:55 AM 01/23/2022 3:41 PM Care Teams Mold Construction Supervisor Relationship Specialty Start Date End Date Mervin Jay DO PCP - General Internal Medicine 10/21/21
--- OUTSIDE RECORDS SUMMARY | 2024-08-09 11:34 | XMS_ITS | Encounter Summary ---
Author Organization [facility] Address [address] [place] [address] Care Team Providers Care Cell Biology Scientist Name Role Phone Jina Banda MD Primary Care Provider Unav ailable Encounter Details Date Type Department Care Team (Late st Contact Info) Description 04/18/2004 Outpatient Historical [facility] Internal Medicine - [facility] [address] [address] [facility] [address] [place] [address] Jina Banda MD NO ADDRESS ON FILE Social History Tobacco Use Types Packs/Day Years Used Date Smoking Tobacco: Never Assessed Comments Unknown Sex and Gender Information Value Date Recorded Sex Assigned at Not on file Legal Sex Female 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 Gender Identity Not on file Sexual Orientation Not on file documented as of this encounter Plan of Treatment Upcoming Encounters Date Type Department Care Team (Late st Contact Info) Description 09/08/2024 12:00 PM CDT Office Visit [facility] Heart and Vascular At [address] [place] [address] Randal Cooley MD [address] [place] [address] 2014 [place] [address] 10/27/2024 10:00 AM CDT Office Visit [facility] Heart and Vascular At [address] [place] [address] Randal Cooley MD [address] [place] [address] 2014 [place] [address] 10/28/2024 9:30 AM CDT Office Visit [facility] Urology [facility] [address] [facility] [address] [place] [address] [place] [address] [facility] [address] [place] [address] documented as of this encounter Visit Diagnoses Not on filedocumented in this encounter Additional Health Concerns Infection Onset Date Last Indicated Resolved Time R/O COVID-19 11/08/2019 11/08/2019 11/11/2019 12:3 1 AM CDT R/O COVID-19 02/01/2020 02/01/2020 02/03/2020 2:00 AM OIL AND GAS RECRUITER documented as of this encounter Care Teams Cell Biology Scientist Relationship Specialty Start Date End Date Jina Banda MD PCP - General Internal Medicine 06/20/16 12/03/21 documented as of this encounter
--- OUTSIDE RECORDS SUMMARY | 2024-08-09 11:34 | XMS_ITS | Encounter Summary ---
Author Organization [facility] Address [address] [place] [address] Phone Care Team Providers Care Clinical Services Director Name Role Phone Mervin Jay DO Primary Care Provider +1- [phone] Encounter Details Date Type Department Care Team (Late st Contact Info) Description 06/30/2024 Results Follow-Up [facility] Allergy and Immunology [address] [facility] [address] [place] [address] Andrzej Wyman MD [address] [place] [address] Strep pneumoniae antibody serotypes Social History Tobacco Use Types Packs/Day Years Used Date Smoking Tobacco: Never Passive Smoke Exposure: Past Smokeless Tobacco: Never AUDIT-C Answer Date Recorded Q1: How often [...] on file 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
--- OUTSIDE RECORDS SUMMARY | 2024-08-09 11:34 | XMS_ITS | Encounter Summary ---
Author Organization [facility] Address [address] [place] [address] Care Team Providers Care Rewind Operator Name Role Phone Jina Banda MD Primary Care Provider Unav ailable Encounter Details Date Type Department Care Team (Late st Contact Info) Description 01/11/2001 Outpatient Historical [facility] Internal Medicine - [facility] [address] [address] [facility] [address] [place] [address] Jina Banda MD NO ADDRESS ON FILE Social History Tobacco Use Types Packs/Day Years Used Date Smoking Tobacco: Never Assessed Comments Unknown Sex and Gender Information Value Date Recorded Sex Assigned at Not on file Legal Sex Female 5:30 AM MANAGER COMMUNITY RELATIONS Gender Identity Not on file Sexual Orientation Not on file documented as of this encounter Plan of Treatment Upcoming Encounters Date Type Department Care Team (Late st Contact Info) Description 09/08/2024 12:00 PM CDT Office Visit [facility] [place] [facility] V[facility] At [address] [place] [address] Randal Cooley MD [address] [place] [address] [address] [place] [address] 10/27/2024 10:00 AM CDT Office Visit [facility] [place] [facility] At [address] [place] [address] Randal Cooley MD [address] [place] [address] 2014 [place] [address] 10/28/2024 9:30 AM CDT Office Visit [facility] [place] Urology [facility] [address] [facility] [address] [place] [address] [place] [address] [facility] [address] [place] [address] documented as of this encounter Visit Diagnoses Not on filedocumented in this encounter Additional Health Concerns Infection Onset Date Last Indicated Resolved Time R/O COVID-19 11/08/2019 11/08/2019 11/11/2019 12:3 1 AM CDT R/O COVID-19 02/01/2020 02/01/2020 02/03/2020 2:00 AM MANAGER COMMUNITY RELATIONS documented as of this encounter Care Teams Rewind Operator Relationship Specialty Start Date End Date Jina Banda MD PCP - General Internal Medicine 06/20/16 12/03/21 documented as of this encounter
--- OUTSIDE RECORDS SUMMARY | 2024-08-09 11:34 | XMS_ITS | Encounter Summary ---
Author Organization [facility] Address [address] [place] [address] Care Team Providers Care Paper Mill Manager Name Role Phone Jina Banda MD Primary Care Provider Unav ailable Encounter Details Date Type Department Care Team (Late st Contact Info) Description 05/03/2003 Outpatient Historical [facility] Internal Medicine - [facility] [address] [address] [facility] [address] [place] [address] Jina Banda MD NO ADDRESS ON FILE Social History Tobacco Use Types Packs/Day Years Used Date Smoking Tobacco: Never Assessed Comments Unknown Sex and Gender Information Value Date Recorded Sex Assigned at Not on file Legal Sex Female 5:30 AM PLATE MOUNTER Gender Identity Not on file Sexual Orientation Not on file documented as of this encounter Plan of Treatment Upcoming Encounters Date Type Department Care Team (Late st Contact Info) Description 09/08/2024 12:00 PM CDT Office Visit [facility] Heart and Vascular At [address] [place] [address] Randal Cooley MD [address] [place] [address] 2014 [place] [address] 10/27/2024 10:00 AM CDT Office Visit [facility] Heart and Vascular At [address] [place] [address] Randal Cooley MD [address] [place] [address] 2014 [place] [address] 10/28/2024 9:30 AM CDT Office Visit [facility] Urology [facility] [address] [facility] [address] [place] [address] [place] [address] [facility] [address] [place] [address] documented as of this encounter Visit Diagnoses Not on filedocumented in this encounter Additional Health Concerns Infection Onset Date Last Indicated Resolved Time R/O COVID-19 11/08/2019 11/08/2019 11/11/2019 12:3 1 AM CDT R/O COVID-19 02/01/2020 02/01/2020 02/03/2020 2:00 AM PLATE MOUNTER documented as of this encounter Care Teams Paper Mill Manager Relationship Specialty Start Date End Date Jina Banda MD PCP - General Internal Medicine 06/20/16 12/03/21 documented as of this encounter
--- OUTSIDE RECORDS SUMMARY | 2024-08-09 11:34 | XMS_ITS | Continuity of Care Document ---
Author Organization [facility] Address [address] [place] [address] Phone Care Team Providers Care Caterpillar Driver Name Role Phone [facility] Unavailable Unavailable Advance Directives Directive Yes / No Effective Date File Name No Information Encounters Encounter Description Practice Location Reason(s) For Visit Diagnoses Date Provider Providers Copied on Encounter [facility] [employer] [employer], [address], [id number], [place] tel:[phone] [facility] No Information Surgery - [facility] [address], [id number], [place]. tel:[phone] Referring Provider: Volodymyr Vicente, [address] [place], [address]. tel:[phone] Family History Family Member Type Diagnosis Age At Onset No Information Payers Payer name Insurance type Covered democrat ID Authoriza tion(s) [facility] [id number] Social History Type Description Quantity Date Captured [...]
--- OUTSIDE RECORDS SUMMARY | 2024-08-09 11:34 | XMS_ITS | Encounter Summary ---
Author Organization [facility] Address [address] [place] [address] Care Team Providers Care Break Up Worker Name Role Phone Jina Banda MD Primary Care Provider Unav ailable Encounter Details Date Type Department Care Team (Late st Contact Info) Description 05/15/1999 Outpatient Historical [facility] Internal Medicine - [facility] [address] [address] [facility] [address] [place] [address] Jina Banda MD NO ADDRESS ON FILE Social History Tobacco Use Types Packs/Day Years Used Date Smoking Tobacco: Never Assessed Comments Unknown Sex and Gender Information Value Date Recorded Sex Assigned at Not on file 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 Gender Identity Not on file Sexual Orientation Not on file documented as of this encounter Plan of Treatment Upcoming Encounters Date Type Department Care Team (Late st Contact Info) Description 09/08/2024 12:00 PM CDT Office Visit [facility] Heart and Vascular At [address] [place] [address] Randal Coolye MD [address] [place] [address] 2014 [place] [address] 10/27/2024 10:00 AM CDT Office Visit [facility] Heart and Vascular At [address] [place] [address] Randal Cooley MD [address] [place] [address] 2014 [place] [address] 10/28/2024 9:30 AM CDT Office Visit [facility] Urology [facility] [address] [facility] [address] [place] [address] [place] [address] [facility] [address] [place] [address] documented as of this encounter Visit Diagnoses Not on filedocumented in this encounter Additional Health Concerns Infection Onset Date Last Indicated Resolved Time R/O COVID-19 11/08/2019 11/08/2019 11/11/2019 12:3 1 AM CDT R/O COVID-19 02/01/2020 02/01/2020 02/03/2020 2:00 AM DEPUTY CITY CLERK documented as of this encounter Care Teams Break Up Worker Relationship Specialty Start Date End Date Jina Banda MD PCP - General Internal Medicine 06/20/16 12/03/21 documented as of this encounter
--- OUTSIDE RECORDS SUMMARY | 2024-08-09 11:34 | XMS_ITS | Encounter Summary ---
Author Organization [facility] Address [address] [place] [address] Care Team Providers Care Nurse Emergency Room Name Role Phone Jina Banda MD Primary Care Provider Unav ailable Encounter Details Date Type Department Care Team (Late st Contact Info) Description 10/06/2002 Outpatient Historical [facility] Internal Medicine - [facility] [address] [address] [facility] [address] [place] [address] Jina Banda MD NO ADDRESS ON FILE Social History Tobacco Use Types Packs/Day Years Used Date Smoking Tobacco: Never Assessed Comments Unknown Sex and Gender Information Value Date Recorded Sex Assigned at Not on file Legal Sex Female 5:[address]FFIC CONTROL TECHNICIAN Gender Identity Not on file Sexual Orientation Not on file documented as of this encounter Plan of Treatment Upcoming Encounters Date Type Department Care Team (Late st Contact Info) Description 09/08/2024 12:00 PM CDT Office Visit [facility] Heart and Vascular At [address] [place] [address] Randal Cooley MD [address] [place] [address] 2014 [place] [address] 10/27/2024 10:00 AM CDT Office Visit [facility] Heart and Vascular At [address] [place] [address] Randal Cooley MD [address] [place] [address] 2014 [place] [address] 10/28/2024 9:30 AM CDT Office Visit [facility] Urology [facility] [address] [facility] [address] [place] [address] [place] [address] [facility] [address] [place] [address] documented as of this encounter Visit Diagnoses Not on filedocumented in this encounter Additional Health Concerns Infection Onset Date Last Indicated Resolved Time R/O COVID-19 11/08/2019 11/08/2019 11/11/2019 12:3 1 AM CDT R/O COVID-19 02/01/2020 02/01/2020 02/03/2020 2:[address] TRAFFIC CONTROL TECHNICIAN documented as of this encounter Care Teams Nurse Emergency Room Relationship Specialty Start Date End Date Jina Banda MD PCP - General Internal Medicine 06/20/16 12/03/21 documented as of this encounter
--- OUTSIDE RECORDS SUMMARY | 2024-08-09 11:34 | XMS_ITS | Clinical Summary ---
Author Organization [facility] [employer] Address [address] [place] [address] Care Team Providers Care Air Control Electronics Operator Name Role Phone Mervin Jay DO Primary Care Provider [phone] Source Comments [facility] [employer],non-owned Affiliates and Associated Physician Practices is amultiple site organization consisting of ambulatory clinics and hospital sitesin [place], [place], [place] and [place]. This disclosure is being madepursuant to the Care Everywhere program and may not contain all information available regarding this patient. Last updated 17.[facility] [employer] Allergies Active Allergy Reactions Criticality Noted Date Comments Amoxicillin GI Discomfort 09/11/2018 Doxycycline Headache 09/11/2018 Morphine Vomiting 09/11/2018 Sulfa Drugs Urticaria Medium 09/11/2018 Medications * Be aware that medications may not be up to date on this document. Alwaysverify current medications with the patient. levothyroxine (TIROSINT) 88 MCG capsule Take 88 [...] daily Active Cyanocobalamin (B-12) 1000 MCG TABS Active vitamin D3 (D3 HIGH POTENCY) 1000 UNIT [...] Active fluticasone propionate (FLONASE) 50 MCG/ACT nasal sprayIndications :Acute pharyngitis, unspecified etiology Rhodes 2 sprays into each nostril once daily 1 bottles 9 Active diphenhydramine 12.5mg/ml, 30ml,; visc lidocaine 2%, 30ml,; maalox, 30ml, (MIRACLE MOUTHWASH) SUSPIndications: Acute pharyngitis, unspecified etiology Swish and spit 10 mL every 4 hours as needed 90 mL 9 Active Family History Medical History Relation Name [...] on file Legal Sex Female 6:26 AM SOLID WASTE TECHNICIAN Gender Identity Not on file Sexual [...] 2:42 PM CDT Height 154.9 cm (5' 1) 09/11/2018 2:42 PM CDT Body Mass Index [...] - COLON CA SCREENING 1958 MAMMOGRAM 1958 HIV SCREENING 1973 HEPATITIS C SCREENING 12/20/1976 DTAP/TDAP/TD VACCINES (1 - Tdap) 1977 PNEUMOCOCCAL VACCINE 50+ (1 of 1 - PCV) 2008 ZOSTER VACCINE (1 of 2) 2008 SCREENING FOR DIABETES 09/11/2018 COVID-19 VACCINE (1 - season) 2023 DEPRESSION SCREENING 03/16/2024 INFLUENZA VACCINE (Season Ended) 2024 01/15/2018, 01/26/2017, 01/21/2016, Additional history exists Respiratory Syncytial Virus (RSV) Vaccine Pt: or over 60 yrs (1 - 1-dose 75+ series) 2033 HEPATITIS B VACCINE Aged Out No longe r eligible based on patient's age to complete this topic HIB VACCINE Aged Out No longer eligi ble based on patient's age to complete this topic HPV VACCINE Aged Out No longer eligi ble based on patient's age to complete this topic MENINGOCOCCAL (Group B) VACCINE SHARED DECISION-MAKING Aged Out No longer eligible based on patient's age to complete this topic MENINGOCOCCAL GROUPS A/C/Y/W VACCINE Aged Out No longer eligible based on patient's age to complete this topic Insurance [facility] Care Teams Air Control Electronics Operator Relationship Specialty Start Date End Date Mervin Jay DO PCP - General 09/26/20
--- OUTSIDE RECORDS SUMMARY | 2024-08-09 11:34 | XMS_ITS | Encounter Summary ---
Author Organization [facility] Address [address] [place] [address] Care Team Providers Care Safety And Skill Based Pay Manager Name Role Phone Jina Banda MD Primary Care Provider Unav ailable Encounter Details Date Type Department Care Team (Late st Contact Info) Description 10/30/2000 Outpatient Historical Division of Neurology [address] [place] [address], [address] [place], [place] [id number] Crow Coburn MD [address] [place] [address] [address] [place] [address] Social History Tobacco Use Types Packs/Day Years Used Date Smoking Tobacco: Never Assessed Comments Unknown Sex and Gender Information Value Date Recorded Sex Assigned at Not on file Legal Sex Female 5:30 AM MANAGER UTILIZATION REVIEW Gender Identity Not on file Sexual Orientation Not on file documented as of this encounter Plan of Treatment Upcoming Encounters Date Type Department Care Team (Late Contact Info) Description 09/08/2024 12:00 PM CDT Office Visit [facility] Heart and Vascular At [address] [place] [address] Randal Cooley MD [address] [place] [address] 2014 [place], [place] [address] 10/27/2024 10:00 AM CDT Office Visit [facility] Heart and Vascular At [address] [place] [address] Randal Cooley MD [address] [place] [address] 2014 [place] [address] 10/28/2024 9:30 AM CDT Office Visit [facility] Urology [facility] [address] [facility] [address] [place] [address] [place] [address] [facility] [address] [place] [address] documented as of this encounter Visit Diagnoses Not on filedocumented in this encounter Additional Health Concerns Infection Onset Date Last Indicated Resolved Time R/O COVID-19 11/08/2019 11/08/2019 11/11/2019 12:3 1 AM CDT R/O COVID-19 02/01/2020 02/01/2020 02/03/2020 2:00 AM MANAGER UTILIZATION REVIEW documented as of this encounter Care Teams Safety And Skill Based Pay Manager Relationship Specialty Start Date End Date Jina Banda MD PCP - General Internal Medicine 06/20/16 12/03/21 documented as of this encounter
--- OUTSIDE RECORDS SUMMARY | 2024-08-09 11:35 | XMS_ITS | Encounter Summary ---
Author Organization [facility] Address [address] [place] [address] Care Team Providers Care Enrollment Coordinator Name Role Phone Jina Banda MD Primary Care Provider Unav ailable Encounter Details Date Type Department Care Team (Late st Contact Info) Description 09/20/2008 Outpatient Historical [facility] Thelma Mota MD [address] [facility] [address] [place], [place] [id number] Diarrhea Social History Tobacco Use Types Packs/Day Years Used Date Smoking Tobacco: Never Alcohol Use Standard Drinks/Week Comments Not Asked 0 (1 standard drink = 0.6 oz pur e alcohol) Comments No Sex and Gender Information Value Date Recorded Sex Assigned at Not on file Legal Sex Female 5:30 AM CIVIL SERVICE WORKER Gender Identity Not on file Sexual Orientation Not on file documented as of this encounter Plan of Treatment Upcoming Encounters Date Type Department Care Team (Late Contact Info) Description 09/08/2024 12:00 PM CDT Office Visit [facility] Heart and Vascular At [address] [place] [address] Randal Cooley MD [address] [place] [address] 2014 [place], [place] [address] 10/27/2024 10:00 AM CDT Office Visit [facility] Heart and Vascular At [address] [place] [address] Randal Cooley MD [address] [facility] [address] [place] [address] 10/28/2024 9:30 AM CDT Office Visit [facility] Urology [facility] [address] [facility] [address] [place] [address] [place] [address] [facility] [address] [place] [address] documented as of this encounter [...] AM CDT) ENDOMYSIAL AB IGA Negative Negative [facility] Comment: Lab test performed by: [facility] [employer] [facility] [address] [place] [address] GIUSEPPE RUTLEDGE MD 09/20/2008 9:35 AM CDT 09/20/2008 9:53 AM CDT Narrative INTERFACE SYSTEM - 09/23/2008 5:50 AM CDT cc: Eva Borden CNP us Thelma Haile MD CHEMISTRY ORDERABLES Final R esult INTERFACE SYSTEM Refer to clinic/hospital department [facility] CLIA# [id number] [address] [place] [address] * (ABNORMAL) IGA (09/20/2008 9:35 AM CDT) IGA <5.0(L) 87.0 - 421.0 mg/dL [facility] 09/20/2008 9:35 AM CDT 09/20/2008 9:53 AM CDT Narrative INTERFACE SYSTEM - 09/20/2008 10:51 AM CDT cc: Eva Borden CNP us Thelma Haile MD CHEMISTRY ORDERABLES Final R esult Performing Organization Address [facility] de Phone Number INTERFACE SYSTEM Refer to clinic/hospital department [facility] CLIA# [id number] [address] [place] [address] * GLIADIN ABS IGG/IGA (09/20/2008 9:35 AM CDT) GLIADIN IGA AB <3 <11 U/mL [facility] Comment: Reference Range: <11 U/mL Negative 11-17 U/mL Equivocal >17 U/mL Positive Lab test performed by: [facility] [address] [place] [phone] GIUSEPPE RUTLEDGE MD GLIADIN IGG AB 7 <11 U/mL [facility] Comment: Reference Range: <11 U/mL Negative 11-17 U/mL Equivocal >17 U/mL Positive 09/20/2008 9:35 AM CDT 09/20/2008 9:53 AM CDT Narrative INTERFACE SYSTEM - 09/22/2008 4:34 PM CDT cc: Eva Borden CNP us Thelma Haile MD CHEMISTRY ORDERABLES Final R esult Performing Organization Address City/[facility]/ZIP Co de Phone Number INTERFACE SYSTEM Refer to clinic/hospital department [facility] CLIA# [id number] [address] [place] [address] * TRANSGLUTAMINASE IGG ANTIBODY (09/20/2008 9:35 AM CDT) Pathologist [facility] TRANSGLUTAMINASE IGG AB <3 <7 U/mL [facility] Comment: Reference range: <7 U/mL Negative 7-10 U/mL Equivocal >10 U/mL Positive Lab test performed by: [facility] [address] [place] [address] GIUSEPPE RUTLEDGE MD 09/20/2008 9:35 AM CDT 09/20/2008 9:53 AM CDT Narrative INTERFACE SYSTEM - 09/25/2008 7:17 PM CDT cc: Eva Borden CNP Thelma Haile MD CHEMISTRY ORDERABLES Final R esult Performing Organization Address [facility] Phone Number INTERFACE SYSTEM Refer to clinic/hospital department [facility] CLIA# [id number] [address] [place] [address] * TRANSGLUTAMINASE IGA ANTIBODY (09/20/2008 9:35 AM CDT) Pathologist [facility] TRANSGLUTAMINASE IGA AB <3 <5 U/mL [facility] Comment: Reference range: <5 U/mL Negative 5-8 U/mL Equivocal >8 U/mL Positive Lab test performed by: [facility] [address] [place] [address] GIUSEPPE RUTLEDGE MD 09/20/2008 9:35 AM CDT 09/20/2008 9:53 AM CDT Narrative INTERFACE SYSTEM - 09/23/2008 8:24 PM CDT cc: Eva Borden CNP Thelma Haile MD CHEMISTRY ORDERABLES Final R esult Performing Organization Address [facility] de Phone Number INTERFACE SYSTEM Refer to clinic/hospital department [facility] CLIA# [id number] [address] [place] [address] documented in this encounter Visit Diagnoses Diagnosis Diarrhea documented in this encounter Additional Health Concerns Infection Onset Date Last Indicated Resolved Time R/O COVID-19 11/08/2019 11/08/2019 11/11/2019 12:3 1 AM CDT R/O COVID-19 02/01/2020 02/01/2020 02/03/2020 2:00 AM CIVIL SERVICE WORKER documented as of this encounter Care Teams Enrollment Coordinator Relationship Specialty Start Date End Date Jina Banda MD PCP - General Internal Medicine 06/20/16 12/03/21 documented as of this encounter
--- OUTSIDE RECORDS SUMMARY | 2024-08-09 11:35 | XMS_ITS | Encounter Summary ---
Author Organization [facility] Address [address] [place] [address] Care Team Providers Care Senior Scheduler Name Role Phone Jina Banda MD Primary Care Provider Unav ailable Encounter Details Date Type Department Care Team (Late st Contact Info) Description 03/19/2007 Outpatient Historical [facility] [address] [place] [address] Malcolm You MD [address] [place] [address] [address] [place] [address] Social History Tobacco Use Types Packs/Day Years Used Date Smoking Tobacco: Never Assessed Comments Unknown Sex and Gender Information Value Date Recorded Sex Assigned at Not on file Legal Sex Female 5:30 AM INSOLVENCY CONSULTANT Gender Identity Not on file Sexual Orientation Not on file documented as of this encounter Plan of Treatment Upcoming Encounters Date Type Department Care Team (Late Contact Info) Description 09/08/2024 12:00 PM CDT Office Visit [facility] Heart and Vascular At [address] [place] [address] Randal Cooley MD [address] [place] [address] [address] [place] [address] 10/27/2024 10:00 AM CDT Office Visit [facility] Heart and Vascular At [address] [place] [address] Randal Cooley MD [address] [place] [address] 2014 [place] [address] 10/28/2024 9:30 AM CDT Office Visit [facility] Urology [facility] [address] [facility] [address] [place] [address] [place] [address] [facility] [address] [place] [address] documented as of this encounter Visit Diagnoses Not on filedocumented in this encounter Additional Health Concerns Infection Onset Date Last Indicated Resolved Time R/O COVID-19 11/08/2019 11/08/2019 11/11/2019 12:3 1 AM CDT R/O COVID-19 02/01/2020 02/01/2020 02/03/2020 2:00 AM INSOLVENCY CONSULTANT documented as of this encounter Care Teams Senior Scheduler Relationship Specialty Start Date End Date Jina Banda MD PCP - General Internal Medicine 06/20/16 12/03/21 documented as of this encounter
--- OUTSIDE RECORDS SUMMARY | 2024-08-09 11:35 | XMS_ITS | Encounter Summary ---
Author Organization [facility] Address [address] [place] [address] Care Team Providers Care Water Pumper Name Role Phone Jina Banda MD Primary Care Provider Unav ailable Encounter Details Date Type Department Care Team (Late st Contact Info) Description 08/23/[address] [facility] Jina Vallejo MD NO ADDRESS ON FILE Injury, Other and Unspecified, Knee, Leg, Ankle, and Foot Social History Tobacco Use Types Packs/Day Years Used Date Smoking Tobacco: Never Assessed Comments Unknown Sex and Gender Information Value Date Recorded Sex Assigned at Not on file Legal Sex Female 5:30 AM MISSION COORDINATOR Gender Identity Not on file Sexual Orientation Not on file documented as of this encounter Plan of Treatment Upcoming Encounters Date Type Department Care Team (Late st Contact Info) Description 09/08/2024 12:00 PM CDT Office Visit [facility] Heart and Vascular At [address] [place] [address] Randal Cooley MD [address] [place] [address] 2014 [place] [address] 10/27/2024 10:00 AM CDT Office Visit [facility] Heart and Vascular At [address] [place] [address] Randal Cooley MD [address] [place] [address] 2014 [place] [address] 10/28/2024 9:30 AM CDT Office Visit [facility] Urology [facility] [address] [facility] [address] [place] [address] [place] [address] [facility] [address] [place] [address] documented as of this encounter Visit Diagnoses Diagnosis Injury, other and unspecified, knee, leg, ankle, and foot documented in this encounter Additional Health Concerns Infection Onset Date Last Indicated Resolved Time R/O COVID-19 11/08/2019 11/08/2019 11/11/2019 12:3 1 AM CDT R/O COVID-19 02/01/2020 02/01/2020 02/03/2020 2:00 AM MISSION COORDINATOR documented as of this encounter Care Teams Water Pumper Relationship Specialty Start Date End Date Jina Banda MD PCP - General Internal Medicine 06/20/16 12/03/21 documented as of this encounter
--- OUTSIDE RECORDS SUMMARY | 2024-08-09 11:35 | XMS_ITS | Encounter Summary ---
Author Organization [facility] Address [address] [place] [address] Care Team Providers Care Crater And Packer Name Role Phone Jina Banda MD Primary Care Provider Unav ailable Encounter Details Date Type Department Care Team (Late st Contact Info) Description 06/16/2006 Outpatient Historical [facility] Internal Medicine - [facility] [address] [address] [facility] [address] [place] [address] Jina Banda MD NO ADDRESS ON FILE Social History Tobacco Use Types Packs/Day Years Used Date Smoking Tobacco: Never Assessed Comments Unknown Sex and Gender Information Value Date Recorded Sex Assigned at Not on file 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 Sex Female 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 Gender Identity Not on file Sexual Orientation [...] Office Visit [facility] Heart [facility] Vascular At [address] [place] [address] Randal Cooley MD [address] [place] [address] [address] [place] [address] 10/27/2024 10:00 AM CDT Office Visit [facility] Heart [facility] Vascular At [address] [place] [address] Randal Cooley MD [address] [place] [address] [address] [place] [address] 10/28/2024 9:30 AM CDT Office Visit [facility] Urology [facility] [address] [facility] [address] [place] [address] [place] [address] [facility] [address] [place] [address] documented as of this encounter Visit Diagnoses Not on filedocumented in this encounter Additional Health Concerns Infection Onset Date Last Indicated Resolved Time R/O COVID-19 11/08/2019 11/08/2019 11/11/2019 12:3 1 AM CDT R/O COVID-19 02/01/2020 02/01/2020 02/03/2020 2:00 AM AGILE DEVELOPER documented as of this encounter Care Teams Crater And Packer Relationship Specialty Start Date End Date Jina Banda MD PCP - General Internal Medicine 06/20/16 12/03/21 documented as of this encounter
--- OUTSIDE RECORDS SUMMARY | 2024-08-09 11:35 | XMS_ITS | Encounter Summary ---
Author Organization [facility] Address [address] [place] [address] Care Team Providers Care Merchandising Lead Name Role Phone Jina Banda MD Primary [...] on file Legal Sex Female 5:30 AM BEHAVIORAL HEALTH TECH Gender Identity Not on file Sexual Orientation Not on file documented as of this encounter Plan of Treatment Upcoming Encounters Date Type Department Care Team (Late st Contact Info) Description 09/08/2024 12:00 PM CDT Office Visit [facility] Heart and Vascular At [address] [place] [address] Randal Cooley MD [address] [place] [address] 2014 [place] [address] 10/27/2024 10:00 AM CDT Office Visit [facility] Heart and Vascular At [address] [place] [address] Randal Cooley MD [address] [place] [address] 2014 [place] [address] 10/28/2024 9:30 AM CDT Office Visit [facility] Urology [facility] [address] [facility] [address] [place] [address] [place] [address] [facility] [address] [facility] [address] [place] [address] documented as of this encounter Visit Diagnoses Diagnosis Unspecified hypothyroidism documented in this encounter Additional Health Concerns Infection Onset Date Last Indicated Resolved Time R/O COVID-19 11/08/2019 11/08/2019 11/11/2019 12:3 1 AM CDT R/O COVID-19 02/01/2020 02/01/2020 02/03/2020 2:00 AM BEHAVIORAL HEALTH TECH documented as of this encounter Care Teams Merchandising Lead Relationship Specialty Start Date End Date Jina Banda MD PCP - General Internal Medicine 06/20/16 12/03/21 documented as of this encounter
--- OUTSIDE RECORDS SUMMARY | 2024-08-09 11:35 | XMS_ITS | Encounter Summary ---
Author Organization [facility] Address [address] [place] [address] Care Team Providers Care Blow Molding Machine Tender Name Role Phone Jina Banda MD Primary Care Provider Unav ailable Encounter Details Date Type Department Care Team (Late st Contact Info) Description 06/04/2007 Orders Only [facility] Internal Medicine - [facility] [address] [address] [facility] [address] [place] [address] Jina Banda MD NO ADDRESS ON FILE Social History Tobacco Use Types Packs/Day Years Used Date Smoking Tobacco: Never Assessed Comments Unknown Sex and Gender Information Value Date Recorded Sex Assigned at Not on file Legal Sex Female 5:30 AM CAD OPERATOR Gender Identity Not on file Sexual Orientation Not on file documented as of this encounter Plan of Treatment Upcoming Encounters Date Type Department Care Team (Late st Contact Info) Description 09/08/2024 12:00 PM CDT Office Visit [facility] Heart and Vascular At [address] [place] [address] Randal Cooley MD [address] [place] [address] 2014 [place] [address] 10/27/2024 10:00 AM CDT Office Visit [facility] Heart and Vascular At [address] [place] [address] Randal Cooley MD [address] [place] [address] 2014 [place] [address] 10/28/2024 9:30 AM CDT Office Visit [facility] Urology [facility] [address] [facility] [address] [place] [address] [place] [address] [facility] [address] [place] [address] documented as of this encounter Visit Diagnoses Not on filedocumented in this encounter Additional Health Concerns Infection Onset Date Last Indicated Resolved Time R/O COVID-19 11/08/2019 11/08/2019 11/11/2019 12:3 1 AM CDT R/O COVID-19 02/01/2020 02/01/2020 02/03/2020 2:00 AM CAD OPERATOR documented as of this encounter Care Teams Blow Molding Machine Tender Relationship Specialty Start Date End Date Jina Banda MD PCP - General Internal Medicine 06/20/16 12/03/21 documented as of this encounter
--- OUTSIDE RECORDS SUMMARY | 2024-08-09 11:35 | XMS_ITS | Encounter Summary ---
Author Organization [facility] Address [address] [place] [address] Care Team Providers Care Foreign Language Instructor Name Role Phone Jina Banda MD Primary Care Provider Unav ailable Encounter Details Date Type Department Care Team (Late st Contact Info) Description 02/01/2007 Outpatient Historical [facility] Mervin Carmen DO NO ADDRESS ON FILE Other Screening Mammogram (Primary Dx) Social History Tobacco Use Types Packs/Day Years Used Date Smoking Tobacco: Never Assessed Comments Unknown Sex and Gender Information Value Date Recorded Sex Assigned at Not on file Legal Sex Female 5:30 AM WATER POLLUTION SPECIALIST Gender Identity Not on file Sexual Orientation Not on file documented as of this encounter Plan of Treatment Upcoming Encounters Date Type Department Care Team (Late st Contact Info) Description 09/08/2024 12:00 PM CDT Office Visit [facility] Heart and Vascular At [address] [place] [address] Randal Cooley MD [address] [place] [address] 2014 [place] [address] 10/27/2024 10:00 AM CDT Office Visit [facility] Heart and Vascular At [address] [place] [address] Randal Cooley MD [address] [place] [address] 2014 [place] [address] 10/28/2024 9:30 AM CDT Office Visit [facility] Urology [place] [id number] [facility] [address] [place] [address] [place] [address] [facility] [facility] [address] [facility] [address] [place] [address] documented as of this encounter Visit Diagnoses Diagnosis Other screening mammogram- Primary documented in this encounter Additional Health Concerns Infection Onset Date Last Indicated Resolved Time R/O COVID-19 11/08/2019 11/08/2019 11/11/2019 12:3 1 AM CDT R/O COVID-19 02/01/2020 02/01/2020 02/03/2020 2:00 AM WATER POLLUTION SPECIALIST documented as of this encounter Care Teams Foreign Language Instructor Relationship Specialty Start Date End Date Jina Banda MD PCP - General Internal Medicine 06/20/16 12/03/21 documented as of this encounter
--- OUTSIDE RECORDS SUMMARY | 2024-08-09 11:35 | XMS_ITS | Encounter Summary ---
Author Organization [facility] Address [address] [place] [address] Care Team Providers Care Oxygen Furnace Operator Name Role Phone Jina Banda MD Primary Care Provider Unav ailable Encounter Details Date Type Department Care Team (Late st Contact Info) Description 05/13/2004 Outpatient Historical [facility] Internal Medicine - [facility] [address] [address] [facility] [address] [place] [address] Jina Banda MD NO ADDRESS ON FILE Social History Tobacco Use Types Packs/Day Years Used Date Smoking Tobacco: Never Assessed Comments Unknown Sex and Gender Information Value Date Recorded Sex Assigned at Not on file Legal Sex Female 5:30 AM SENIOR ENVIRONMENTAL TECHNICIAN Gender Identity Not on file Sexual Orientation Not on file documented as of this encounter Plan of Treatment Upcoming Encounters Date Type Department Care Team (Late st Contact Info) Description 09/08/2024 12:00 PM CDT Office Visit [facility] Heart and Vascular At [address] [place] [address] Randal Cooley MD [address] [place] [address] 2014 [place] [address] 10/27/2024 10:00 AM CDT Office Visit [facility] Heart and Vascular At [address] [place] [address] Randal Cooley MD [address] [place] [address] 2014 [place] [address] 10/28/2024 9:30 AM CDT Office Visit [facility] U[facility] [address] [facility] [address] [place] [address] [place] [address] [facility] [address] [place] [address] documented as of this encounter Visit Diagnoses Not on filedocumented in this encounter Additional Health Concerns Infection Onset Date Last Indicated Resolved Time R/O COVID-19 11/08/2019 11/08/2019 11/11/2019 12:3 1 AM CDT R/O COVID-19 02/01/2020 02/01/2020 02/03/2020 2:00 AM SENIOR ENVIRONMENTAL TECHNICIAN documented as of this encounter Care Teams Oxygen Furnace Operator Relationship Specialty Start Date End Date Jina Banda MD PCP - General Internal Medicine 06/20/16 12/03/21 documented as of this encounter
--- OUTSIDE RECORDS SUMMARY | 2024-08-09 11:35 | XMS_ITS | Encounter Summary ---
Author Organization [facility] Address [address] [place] [address] Care Team Providers Care Cultural Anthropology Professor Name Role Phone Jina Banda MD Primary Care Provider Unav ailable Encounter Details Date Type Department Care Team (Late st Contact Info) Description 12/09/2006 Orders Only [facility] Internal Medicine - [facility] [address] [address] [facility] [address] [place] [address] Jina Banda MD NO ADDRESS [...] HOME PHONE: PATIENT`S WORK PHONE: PATIENT`S INSURANCE: [facility] WHO TOOK THE CALL: Natasha Krishnan GENERAL INFORMATION PCP: [facility] PHARMACY NUMBER: [phone] SECTION 1: REQUESTED ACTION [email or web address] 12/09/06 at [...] [facility] Heart and Vascular At [address] [place] [address] Randal Cooley MD [address] [place] [address] 2014 [place] [address] 10/27/2024 10:00 AM CDT Office Visit [facility] Heart and Vascular At [address] [place] [address] Randal Cooley MD [address] [place] [address] 2014 [place] [address] 10/28/2024 9:30 AM CDT Office Visit [facility] Urology [facility] [address] [address] [place] [address] [id number] documented as of this encounter Visit Diagnoses Not on filedocumented in this encounter Additional Health Concerns Infection Onset Date Last Indicated Resolved Time R/O COVID-19 11/08/2019 11/08/2019 11/11/2019 12:3 1 AM CDT R/O COVID-19 02/01/2020 02/01/2020 02/03/2020 2:00 AM RACK CARRIER documented as of this encounter Care Teams Cultural Anthropology Professor Relationship Specialty Start Date End Date Jina Banda MD PCP - General Internal Medicine 06/20/16 12/03/21 documented as of this encounter
--- OUTSIDE RECORDS SUMMARY | 2024-08-09 11:35 | XMS_ITS | Encounter Summary ---
Author Organization [facility] Address [address] [place] [address] Care Team Providers Care Core Shaper Top Name Role Phone Jina Banda MD Primary Care Provider Unav ailable Encounter Details Date Type Department Care Team (Late st Contact Info) Description 12/27/2007 Outpatient Historical [facility] [address] Jina Banda MD NO ADDRESS ON FILE Hematuria, Unspecified Social History Tobacco Use Types Packs/Day Years Used Date Smoking Tobacco: Never Alcohol Use Standard Drinks/Week Comments Not Asked 0 (1 standard drink = 0.6 oz pur e alcohol) Comments No Sex and Gender Information Value Date Recorded Sex Assigned at Not on file Legal Sex Female 5:30 AM LINE SERVICE ATTENDANT Gender Identity Not on file Sexual Orientation Not on file documented as of this encounter Plan of Treatment Upcoming Encounters Date Type Department Care Team (Late st Contact Info) Description 09/08/2024 12:00 PM CDT Office Visit [facility] Heart and Vascular At [address] [place] [address] Randal Cooley MD [address] [place] [address] 2014 [place] [address] 10/27/2024 10:00 AM CDT Office Visit [facility] Heart and Vascular At [address] [place] [address] Randal Cooley MD [address] [place] [address] 2014 [place] [address] 10/28/2024 9:30 AM CDT Office Visit [facility] Urology [facility] [address] [facility] [address] [place] [address] [place] [address] [facility] 260 [place] [address] documented as of this encounter Visit Diagnoses Diagnosis Hematuria, unspecified documented in this encounter Additional Health Concerns Infection Onset Date Last Indicated Resolved Time R/O COVID-19 11/08/2019 11/08/2019 11/11/2019 12:3 1 AM CDT R/O COVID-19 02/01/2020 02/01/2020 02/03/2020 2:00 AM LINE SERVICE ATTENDANT documented as of this encounter Care Teams Core Shaper Top Relationship Specialty Start Date End Date Jina Banda MD PCP - General Internal Medicine 06/20/16 12/03/21 documented as of this encounter
--- OUTSIDE RECORDS SUMMARY | 2024-08-09 11:35 | XMS_ITS | Encounter Summary ---
Author Organization [facility] Address [address] [place] [address] Care Team Providers Care Sack Department Supervisor Name Role Phone Jina Banda MD Primary Care Provider Unav ailable Encounter Details Date Type Department Care Team (Late st Contact Info) Description 04/14/2005 Outpatient Historical [facility] Internal Medicine - [facility] [address] [address] [facility] [address] [place] [address] Jina Banda MD NO ADDRESS ON FILE Social History Tobacco Use Types Packs/Day Years Used Date Smoking Tobacco: Never Assessed Comments Unknown Sex and Gender Information Value Date Recorded Sex Assigned at Not on file Legal Sex Female 5:30 AM SELF CONTAINED BEHAVIOR UNIT TEACHER Gender Identity Not on file Sexual Orientation Not on file documented as of this encounter Plan of Treatment Upcoming Encounters Date Type Department Care Team (Late st Contact Info) Description 09/08/2024 12:00 PM CDT Office Visit [facility] Heart and Vascular At [address] [place] [address] Randal Cooley MD [address] [place] [address] 2014 [place] [address] 10/27/2024 10:00 AM CDT Office Visit [facility] Heart and Vascular At [address] 2014 [place] [address] Randal Cooley MD [address] [place] [address] 2014 [place] [address] 10/28/2024 9:30 AM CDT Office Visit [facility] Urology [facility] [address] [facility] [address] [place] [address] [place] [address] [facility] [address] [place] [address] documented as of this encounter Visit Diagnoses Not on filedocumented in this encounter Additional Health Concerns Infection Onset Date Last Indicated Resolved Time R/O COVID-19 11/08/2019 11/08/2019 11/11/2019 12:3 1 AM CDT R/O COVID-19 02/01/2020 02/01/2020 02/03/2020 2:00 AM SELF CONTAINED BEHAVIOR UNIT TEACHER documented as of this encounter Care Teams Sack Department Supervisor Relationship Specialty Start Date End Date Jina Banda MD PCP - General Internal Medicine 06/20/16 12/03/21 documented as of this encounter
--- OUTSIDE RECORDS SUMMARY | 2024-08-09 11:35 | XMS_ITS | Encounter Summary ---
Author Organization [facility] Address [address] [place] [address] Care Team Providers Care Mounted Police Name Role Phone Jina Banda MD Primary Care Provider Unav ailable Encounter Details Date Type Department Care Team (Late st Contact Info) Description 06/30/2007 Orders Only [facility] Internal Medicine - [facility] [address] [address] [facility] [address] [place] [address] Jina Banda MD NO ADDRESS ON FILE Social History Tobacco Use Types Packs/Day Years Used Date Smoking Tobacco: Never Assessed Comments Unknown Sex and Gender Information Value Date Recorded Sex Assigned at Not on file Legal Sex Female 5:30 AM WRIST LINER Gender Identity Not on file Sexual Orientation Not on file documented as of this encounter Progress Notes * Jina Banda MD - 08/20/2007 10:30 AM CDT TIME:11:04 am PATIENT`S HOME PHONE: PATIENT`S WORK PHONE: PATIENT`S INSURANCE: [facility] WHO TOOK THE CALL: Vivi Rock A GENERAL INFORMATION PCP: [facility] PHARMACY NUMBER: [phone] SECTION 1: REQUESTED ACTION obertt 06/30/07 at 11:05 am: MEDICATION REQUEST: MEDICATIONS: PAROXETINE HCL ORAL TABLET 10 MG, 1/2 tab qd, 30 Dispensed, status: NEW PRESCRIPTION, 05/26/2007. Rx request says 1 tab QD? Last RF 05/21/07 RECEIVED FAXED REQUEST FROM THE PHARMACY [facility]. [place], [place]. DOCTOR`S RESPONSE: herlinda 06/30/07 at 12:45 [...] [facility] Heart and Vascular At [address] [place] [address] Randal Cooley MD [address] [place] [address] 2014 [place] [address] 10/27/2024 10:00 AM CDT Office Visit [facility] Heart and Vascular At [address] [place] [address] Randal Cooley MD [address] [place] [address] 2014 [place] [address] 10/28/2024 9:30 AM CDT Office Visit [facility] Urology [facility] [address] [facility] [address] [place] [address] [place] [address] [facility] [address] [facility] [address] [place] [address] documented as of this encounter Visit Diagnoses Not on filedocumented in this encounter Additional Health Concerns Infection Onset Date Last Indicated Resolved Time R/O COVID-19 11/08/2019 11/08/2019 11/11/2019 12:3 1 AM CDT R/O COVID-19 02/01/2020 02/01/2020 02/03/2020 2:00 AM WRIST LINER documented as of this encounter Care Teams Mounted Police Relationship Specialty Start Date End Date Jina Banda MD PCP - General Internal Medicine 06/20/16 12/03/21 documented as of this encounter
--- OUTSIDE RECORDS SUMMARY | 2024-08-09 11:35 | XMS_ITS | Encounter Summary ---
Author Organization [facility] Address [address] [place] [address] Care Team Providers Care Ambulance Officer Name Role Phone Jina Banda MD Primary Care Provider Unav ailable Encounter Details Date Type Department Care Team (Late st Contact Info) Description 03/03/2006 Orders Only [facility] Internal Medicine - [facility] [address] [facility] [address] [place] [address] Tarah Cardenas, ANP [address] [facility] [address] [place] [address] Social History Tobacco Use Types Packs/Day Years Used Date Smoking Tobacco: Never Assessed Comments Unknown Sex and Gender Information Value Date Recorded Sex Assigned at Not on file Legal Sex Female 5:30 AM DIALYSIS CLINICAL MANAGER Gender Identity Not on file Sexual Orientation Not on file documented as of this encounter Progress Notes * Tarah Cardenas, JERZY - 12/29/2007 4:12 AM CDT TIME:03:54 pm PATIENT`S HOME PHONE: PATIENT`S WORK PHONE: PATIENT`S INSURANCE: [facility] [employer] [facility] WHO TOOK THE CALL: Nohemy Hernandez M GENERAL INFORMATION ALTERNATIVE PHONE NUMBER: [phone] SECTION 1: REQUESTED ACTION thor 03/03/06 at 03:55 pm: MEDICATION REQUEST: hip x-ray normal. Pt has L side pain. Can call in Rx? DOCTOR`S RESPONSE: crow 03/03/06 at 04:22 pm MEDICATIONS: Call in to [...] Visit [facility] At [address] [place] [address] Randal Cooley MD [address] [place] [address] [address] [place] [address] 10/27/2024 10:00 AM CDT Office Visit [facility] Heart [facility] V[facility] At [address] [place] [address] Randal Cooley MD [address] [place] [address] [address] [place] [address] 10/28/2024 9:30 AM CDT Office Visit [facility] Urology [facility] [address] [facility] [facility] [address] [place] [address] [place] [address] [facility] [address] [place] [address] documented as of this encounter Visit Diagnoses Not on filedocumented in this encounter Additional Health Concerns Infection Onset Date Last Indicated Resolved Time R/O COVID-19 11/08/2019 11/08/2019 11/11/2019 12:3 1 AM CDT R/O COVID-19 02/01/2020 02/01/2020 02/03/2020 2:00 AM DIALYSIS CLINICAL MANAGER documented as of this encounter Care Teams Ambulance Officer Relationship Specialty Start Date End Date Jina Banda MD PCP - General Internal Medicine 06/20/16 12/03/21 documented as of this encounter
--- OUTSIDE RECORDS SUMMARY | 2024-08-09 11:35 | XMS_ITS | Encounter Summary ---
Author Organization [facility] Address [address] [place] [address] Care Team Providers Care Sales Lead Name Role Phone Jina Banda MD Primary Care Provider Unav ailable Encounter Details Date Type Department Care Team (Late st Contact Info) Description 02/16/2007 Outpatient Historical [facility] [place], Authorized P NO ADDRESS ON FILE William Pimentel MD [address] [place] [address] Lisa Palafox MD NO ADDRESS ON FILE Other and Unspecified Noninfectious Gastroenteritis and Colitis Social History Tobacco Use Types Packs/Day Years Used Date Smoking Tobacco: Never Assessed Comments Unknown Sex and Gender Information Value Date Recorded Sex Assigned at Not on file Legal Sex Female 5:30 AM ESCORT CAR DRIVER Gender Identity Not on file Sexual Orientation Not on file documented as of this encounter Plan of Treatment Upcoming Encounters Date Type Department Care Team (Late Contact Info) Description 09/08/2024 12:00 PM CDT Office Visit [facility] At [address] [place] [address] Randal Cooley MD [address] [place] [address] [address] [place], [place] [id number] 10/27/2024 10:00 AM CDT Office Visit [facility] At [address] [place] [address] Randal Cooley MD [address] [place] [address] [address] [place] [address] 10/28/2024 9:30 AM CDT Office Visit [facility] Urology [facility] [address] [place] [address] [place] [address] [facility] [address] [place] [address] documented as of this encounter Procedures Procedure Name Priority Date/Time Associated Diagnosis Comments CBC WITH DIFFERENTIAL Routine 02/18/2007 4:56 AM ESCORT CAR DRIVER CBC WITH DIFFERENTIAL Routine 02/18/2007 4:56 AM ESCORT CAR DRIVER COMPREHENSIVE METABOLIC PANEL Routine 02/18/2007 4:56 AM ESCORT CAR DRIVER CBC WITH DIFFERENTIAL Routine 02/17/2007 4:48 AM ESCORT CAR DRIVER CBC WITH DIFFERENTIAL Routine 02/17/2007 4:48 AM ESCORT CAR DRIVER C-REACTIVE PROTEIN Routine 02/17/2007 4: 48 AM ESCORT CAR DRIVER VITAMIN B12 LEVEL Routine 02/17/2007 4:4 8 AM ESCORT CAR DRIVER BASIC METABOLIC PANEL Routine 02/17/2007 4:48 AM ESCORT CAR DRIVER CBC WITH DIFFERENTIAL Routine 02/16/2007 10:35 PM ESCORT CAR DRIVER CBC WITH DIFFERENTIAL Routine 02/16/2007 10:35 PM ESCORT CAR DRIVER LIPASE Routine 02/16/2007 10:35 PM ESCORT CAR DRIVER AMYLASE Routine 02/16/2007 10:35 PM ESCORT CAR DRIVER COMPREHENSIVE METABOLIC PANEL Routine 02/16/2007 10:35 PM ESCORT CAR DRIVER documented in this encounter Results * (ABNORMAL) CBC WITH DIFFERENTIAL (02/18/2007 4:56 AM ESCORT CAR DRIVER) Pathologist [facility] NEUTROPHILS 39(L) 45 - 70 % INTERFAC [...] 0.20 K/uL INTERFACE SYSTEM 02/18/2007 4:56 AM ESCORT CAR DRIVER Lisa Palafox MD HEMATOLOGY ORDERABLES Edited Performing Organization Address [facility] de Phone Number INTERFACE SYSTEM Refer to clinic/hospital department * (ABNORMAL) CBC WITH DIFFERENTIAL (02/18/2007 4:56 AM ESCORT CAR DRIVER) Pathologist [facility] WBC 3.2(L) 4.0 - 9.8 K/uL INTERFACE [...] 12.4 fL INTERFACE SYSTEM 02/18/2007 4:56 AM ESCORT CAR DRIVER Lisa Palafox MD HEMATOLOGY ORDERABLES Edited Performing Organization Address City/[facility] Co de Phone Number INTERFACE SYSTEM Refer to clinic/hospital department * (ABNORMAL) COMPREHENSIVE METABOLIC PANEL (02/18/2007 4:56 AM ESCORT CAR DRIVER) GLUCOSE 81 65 - 99 mg/dL INTERFACE [...] [facility] Intranet at: [email or web address] Select: Lab Policies and Procedures Select: Reference Ranges - GFR 02/18/2007 4:56 AM ESCORT CAR DRIVER us Lisa Palafox MD CHEMISTRY ORDERABLES Edited INTERFACE SYSTEM Refer to clinic/hospital department * CBC WITH DIFFERENTIAL (02/17/2007 4:48 AM ESCORT CAR DRIVER) Pathologist [facility] NEUTROPHILS 67 45 - 70 [...] 0.20 K/uL INTERFACE SYSTEM 02/17/2007 4:48 AM ESCORT CAR DRIVER William Pimentel MD HEMATOLOGY ORDERABLES Edited Performing Organization Address City/[facility] Co de Phone Number INTERFACE SYSTEM Refer to clinic/hospital department * (ABNORMAL) CBC WITH DIFFERENTIAL (02/17/2007 4:48 AM ESCORT CAR DRIVER) WBC 2.9(L) 4.0 - 9.8 K/uL INTERFACE [...] 12.4 fL INTERFACE SYSTEM 02/17/2007 4:48 AM ESCORT CAR DRIVER William Pimentel MD HEMATOLOGY ORDERABLES Edited Performing Organization Address [facility] Co de Phone Number INTERFACE SYSTEM Refer to clinic/hospital department * VITAMIN B12 (02/17/2007 4:48 AM ESCORT CAR DRIVER) VITAMIN B12 211 211 - 946 pg/mL INTERFACE SYSTEM Comment: It has been reported that between 5 to 10% of patients with values between 200 and 400 pg/mL may experience neuropsychiatric and hematologic abnormalities due to occult B12 deficiency. Less than 1% of patients with values above 400 pg/mL will have symptoms. 02/17/2007 4:48 AM ESCORT CAR DRIVER Result Arash Pimentel MD CHEMISTRY ORDERABLES Edited Performing Organization Address City/[facility] Co de Phone Number INTERFACE SYSTEM Refer to clinic/hospital department * C-REACTIVE PROTEIN (02/17/2007 4:48 AM ESCORT CAR DRIVER) CRP <0.2 0.0 - 0.8 mg/dL INTERFACE SYSTEM 02/17/2007 4:48 AM ESCORT CAR DRIVER us William Pimentel MD CHEMISTRY ORDERABLES Edited Performing Organization Address [facility] de Phone Number INTERFACE SYSTEM Refer to clinic/hospital department * (ABNORMAL) BASIC METABOLIC PANEL (02/17/2007 4:48 AM ESCORT CAR DRIVER) GLUCOSE 111(H) 65 - 99 mg/dL INTERFACE [...] [facility] Intranet at: [email or web address] Select: Lab Policies and Procedures Select: Reference Ranges - GFR 02/17/2007 4:48 AM ESCORT CAR DRIVER Result Arash Pimentel MD CHEMISTRY ORDERABLES Edited Performing Organization Address City/[facility] Co de Phone Number INTERFACE SYSTEM Refer to clinic/hospital department * (ABNORMAL) CBC WITH DIFFERENTIAL (02/16/2007 10:35 PM ESCORT CAR DRIVER) Pathologist [facility] NEUTROPHILS 46 45 - 70 % INTERFAC [...] K/uL INTERFACE SYSTEM 02/16/2007 10:3 5 PM ESCORT CAR DRIVER Daniel Garcia MD HEMATOLOGY ORDERABLES Edited Performing Organization Address [facility] de Phone Number INTERFACE SYSTEM Refer to clinic/hospital department * (ABNORMAL) CBC WITH DIFFERENTIAL (02/16/2007 10:35 PM ESCORT CAR DRIVER) Pathologist [facility] WBC 3.5(L) 4.0 - 9.8 K/uL INTERFACE [...] fL INTERFACE SYSTEM 02/16/2007 10:3 5 PM ESCORT CAR DRIVER Daniel Garcia MD HEMATOLOGY ORDERABLES Edited Performing Organization Address [facility] Co de Phone Number INTERFACE SYSTEM Refer to clinic/hospital department * LIPASE (02/16/2007 10:35 PM ESCORT CAR DRIVER) LIPASE 58 13 - 60 U/L INTERFAC E SYSTEM 02/16/2007 10:3 5 PM ESCORT CAR DRIVER Daniel Garcia MD CHEMISTRY ORDERABLES Edited INTERFACE SYSTEM Refer to clinic/hospital department * AMYLASE (02/16/2007 10:35 PM ESCORT CAR DRIVER) AMYLASE 86 28 - 100 U/L INTERFACE SYSTEM 02/16/2007 10:3 5 PM ESCORT CAR DRIVER Daniel Garcia MD CHEMISTRY ORDERABLES Edited INTERFACE SYSTEM Refer to clinic/hospital department * (ABNORMAL) COMPREHENSIVE METABOLIC PANEL (02/16/2007 10:35 PM ESCORT CAR DRIVER) GLUCOSE 98 65 - 99 mg/dL INTERFACE [...] [facility] Intranet at: [email or web address] Select: Lab Policies and Procedures Select: Reference Ranges - GFR 02/16/2007 10:3 5 PM ESCORT CAR DRIVER Daniel Garcia MD CHEMISTRY ORDERABLES Edited INTERFACE SYSTEM Refer to clinic/hospital department documented in this encounter Visit Diagnoses Diagnosis Other and unspecified noninfectious gastroenteritis and colitis(558.9) Other and unspecified noninfectious gastroenteritis and colitis documented in this encounter Additional Health Concerns Infection Onset Date Last Indicated Resolved Time R/O COVID-19 11/08/2019 11/08/2019 11/11/2019 12:3 1 AM CDT R/O COVID-19 02/01/2020 02/01/2020 02/03/2020 2:00 AM ESCORT CAR DRIVER documented as of this encounter Care Teams Sales Lead Relationship Specialty Start Date End Date Jina Banda MD PCP - General Internal Medicine 06/20/16 12/03/21 documented as of this encounter
--- OUTSIDE RECORDS SUMMARY | 2024-08-09 11:35 | XMS_ITS | Encounter Summary ---
Author Organization [facility] Address [address] [place] [address] Care Team Providers Care Veterinary Radiologist Name Role Phone Jina Banda MD Primary Care Provider Unav ailable Encounter Details Date Type Department Care Team (Late st Contact Info) Description 01/14/2008 Outpatient Historical [facility], [address] Jina Banda MD NO ADDRESS ON FILE Urinary Tract Infection, Site not Specified Social History Tobacco Use Types Packs/Day Years Used Date Smoking Tobacco: Never Alcohol Use Standard Drinks/Week Comments Not Asked 0 (1 standard drink = 0.6 oz pur e alcohol) Comments No Sex and Gender Information Value Date Recorded Sex Assigned at Not on file Legal Sex Female 5:30 AM ATHLETIC EQUIPMENT MANAGER Gender Identity Not on file Sexual Orientation Not on file documented as of this encounter Plan of Treatment Upcoming Encounters Date Type Department Care Team (Late st Contact Info) Description 09/08/2024 12:00 PM CDT Office Visit [facility] Heart and Vascular At [address] [place] [address] Randal Cooley MD [address] [place] [address] 2014 [place] [address] 10/27/2024 10:00 AM CDT Office Visit [facility] Heart and Vascular At [address] [place] [address] Randal Cooley MD [address] [place] [address] 2014 [place] [address] 10/28/2024 9:30 AM CDT Office Visit [facility] Urology [facility] [address] [facility] [address] [place] [address] [place] [address] [facility] [address] [place] [address] documented as of this encounter Visit Diagnoses Diagnosis Urinary tract infection, site not specified documented in this encounter Additional Health Concerns Infection Onset Date Last Indicated Resolved Time R/O COVID-19 11/08/2019 11/08/2019 11/11/2019 12:3 1 AM CDT R/O COVID-19 02/01/2020 02/01/2020 02/03/2020 2:00 AM ATHLETIC EQUIPMENT MANAGER documented as of this encounter Care Teams Veterinary Radiologist Relationship Specialty Start Date End Date Jina Banda MD PCP - General Internal Medicine 06/20/16 12/03/21 documented as of this encounter
--- OUTSIDE RECORDS SUMMARY | 2024-08-09 11:35 | XMS_ITS | Encounter Summary ---
Author Organization [facility] Address [address] [place] [address] Care Team Providers Care Procedures Rn Name Role Phone Jina Banda MD Primary Care Provider Unav ailable Encounter Details Date Type Department Care Team (Latest Contact Info) Description 02/15/2007 Outpatient Historical [facility] [address] [place] [address] Malcolm You MD [address] [place] [address] [address] [place] [address] Pain in Joint, Pelvic Region and Thigh (Primary Dx) Social History Tobacco Use Types Packs/Day Years Used Date Smoking Tobacco: Never Assessed Comments Unknown Sex and Gender Information Value Date Recorded Sex Assigned at Not on file Legal Sex Female 5:30 AM MECHANICAL EXPERT Gender Identity Not on file Sexual Orientation Not on file documented as of this encounter Plan of Treatment Upcoming Encounters Date Type Department Care Team (Late st Contact Info) Description 09/08/2024 12:00 PM CDT Office Visit [facility] Heart and Vascular At [address] [place] [address] Randal Cooley MD [address] [place] [address] [address] [place] [address] 10/27/2024 10:00 AM CDT Office Visit [facility] Heart and Vascular At [address] [place] [address] Randal Cooley MD [address] [place] [address] [address] [place] [address] 10/28/2024 9:30 AM CDT Office Visit [facility] Urology [facility] [address] [facility] [address] [place] [address] [place] [address] [facility] [address] [place] [address] documented as of this encounter Visit Diagnoses Diagnosis Pain in joint, pelvic region and thigh- Primary documented in this encounter Additional Health Concerns Infection Onset Date Last Indicated Resolved Time R/O COVID-19 11/08/2019 11/08/2019 11/11/2019 12:3 1 AM CDT R/O COVID-19 02/01/2020 02/01/2020 02/03/2020 2:00 AM MECHANICAL EXPERT documented as of this encounter Care Teams Procedures Rn Relationship Specialty Start Date End Date Jina Banda MD PCP - General Internal Medicine 06/20/16 12/03/21 documented as of this encounter
--- OUTSIDE RECORDS SUMMARY | 2024-08-09 11:35 | XMS_ITS | Encounter Summary ---
Author Organization [facility] Address [address] [place] [address] Care Team Providers Care Web Ui Designer Name Role Phone Jina Banda MD Primary Care Provider Unav ailable Encounter Details Date Type Department Care Team (Late st Contact Info) Description 03/23/2006 Orders Only [facility] Internal Medicine - [facility] [address] [address] [facility] [address] [place] [address] Jina Banda MD NO ADDRESS ON FILE Social History Tobacco Use Types Packs/Day Years Used Date Smoking Tobacco: Never Assessed Comments Unknown Sex and Gender Information Value Date Recorded Sex Assigned at Not on file Legal Sex Female 5:30 AM SCUBA DIVER Gender Identity Not on file Sexual Orientation Not on file documented as of this encounter Progress Notes * Jina Banda MD - 08/10/2007 10:20 AM CDT TIME:10:06 am PATIENT`S HOME PHONE: PATIENT`S WORK PHONE: PATIENT`S INSURANCE: [facility] WHO TOOK THE CALL: Tiera March C GENERAL INFORMATION WHO CALLED: Pharmacy called. fax PHARMACY NUMBER: [phone] SECTION 1: REQUESTED ACTION nedra 03/23/06 at [...] [facility] Heart [facility] Vascular At [address] [place] [address] Randal Cooley MD [address] [place] [address] [address] [place] [address] 10/27/2024 10:00 AM CDT Office Visit [facility] Heart and Vascular At [address] [place] [address] Randal Cooley MD [address] [place] [address] [address] [place] [address] 10/28/2024 9:30 AM CDT Office Visit [facility] Urology [facility] [address] [phone] [place] [address] [phone] documented as of this encounter Visit Diagnoses Not on filedocumented in this encounter Additional Health Concerns Infection Onset Date Last Indicated Resolved Time R/O COVID-19 11/08/2019 11/08/2019 11/11/2019 12:3 1 AM CDT R/O COVID-19 02/01/2020 02/01/2020 02/03/2020 2:00 AM SCUBA DIVER documented as of this encounter Care Teams Web Ui Designer Relationship Specialty Start Date End Date Jina Banda MD PCP - General Internal Medicine 06/20/16 12/03/21 documented as of this encounter
--- OUTSIDE RECORDS SUMMARY | 2024-08-09 11:35 | XMS_ITS | Encounter Summary ---
Author Organization [facility] Address [address] [place] [address] Care Team Providers Care Superintendent Name Role Phone Jina Banda MD Primary Care Provider Unav ailable Encounter Details Date Type Department Care Team (Late st Contact Info) Description 05/26/2007 Outpatient Historical [facility] Internal Medicine - [facility] [address] [address] [facility] [address] [place] [address] Jina Banda MD NO ADDRESS ON FILE Acute Pharyngitis Social History Tobacco Use Types Packs/Day Years Used Date Smoking Tobacco: Never Assessed Comments Unknown Sex and Gender Information Value Date Recorded Sex Assigned at Not on file Legal Sex Female 5:30 AM TRAFFIC EXPERT Gender Identity Not on file Sexual Orientation Not on file documented as of this encounter Plan of Treatment Upcoming Encounters Date Type Department Care Team (Late st Contact Info) Description 09/08/2024 12:00 PM CDT Office Visit [facility] Heart and Vascular At [address] [place] [address] Randal Cooley MD [address] [place] [address] [address] [place] [address] 10/27/2024 10:00 AM CDT Office Visit [facility] Heart and Vascular At [address] [place] [address] Randal Cooley MD [address] [place] [address] [address] [place] [address] 10/28/2024 9:30 AM CDT Office Visit [facility] Urology [facility] [address] [place] [address] [place] [address] [place] [address] documented as of this encounter [...] LAB EOSINOPHILS 2 0 - 7 % [facility] EOSINOPHIL ABSOLUTE 0.13 0.00 - 0.70 K/uL [facility] LYMPHOCYTES 26 16 - 45 % [facility] LYMPHOCYTE ABSOLUTE 1.74 0.70 - 4.50 [...] LAB NEUTROPHILS 63 45 - 70 % [facility] NEUTROPHIL ABSOLUTE 4.18 1.90 - 7.00 K/uL [facility] Blood specimen (specimen) 05/26/2007 4:10 PM CDT 05/26/2007 8:29 PM CDT us Jina Banda MD HEMATOLOGY ORDERABLES Edite d Performing Organization Address [facility] de Phone Number INTERFACE SYSTEM Refer to clinic/hospital department [facility] [address] [address] * (ABNORMAL) TSH (05/26/2007 4:10 PM CDT) TSH 10.66(H) 0.27 - 4.20 uU/mL [facility] Blood specimen (specimen) 05/26/2007 4:10 PM CDT 05/26/2007 8:29 PM CDT us Jina Banda MD CHEMISTRY ORDERABLES Final Result Performing Organization Address [facility] de Phone Number [facility] [address] [address] documented in this encounter Visit Diagnoses Diagnosis Acute pharyngitis documented in this encounter Additional Health Concerns Infection Onset Date Last Indicated Resolved Time R/O COVID-19 11/08/2019 11/08/2019 11/11/2019 12:3 1 AM CDT R/O COVID-19 02/01/2020 02/01/2020 02/03/2020 2:00 AM TRAFFIC EXPERT documented as of this encounter Care Teams Superintendent Relationship Specialty Start Date End Date Jina Banda MD PCP - General Internal Medicine 06/20/16 12/03/21 documented as of this encounter
--- OUTSIDE RECORDS SUMMARY | 2024-08-09 11:35 | XMS_ITS | Encounter Summary ---
Author Organization [facility] Address [address] [place] [address] Care Team Providers Care Patient Account Specialist Name Role Phone Jina Banda MD Primary Care Provider Unav ailable Encounter Details Date Type Department Care Team (Late st Contact Info) Description 09/07/2006 Outpatient Historical [facility] Internal [facility] - [facility] [address] [address] [facility] [address] [place] [address] Jina Banda MD NO ADDRESS ON FILE Social History Tobacco Use Types Packs/Day Years Used Date Smoking Tobacco: Never Assessed Comments Unknown Sex and Gender Information Value Date Recorded Sex Assigned at Not on file Legal Sex Female 5:30 AM COMPUTER ASSISTANT Gender Identity Not on file Sexual [...] [facility] [address] [place] [address] Randal Cooley MD [address] [place] [address] [address] [place] [address] 10/27/2024 10:00 AM CDT Office Visit [facility] At [facility] [address] [facility] [address] [place] [address] Randal Cooley MD [address] [place] [address] 2014 [place] [address] 10/28/2024 9:30 AM CDT Office Visit [facility] [address] [place] [address] [place] [address] [place] [address] documented as of this encounter Visit Diagnoses Not on filedocumented in this encounter Additional Health Concerns Infection Onset Date Last Indicated Resolved Time R/O COVID-19 11/08/2019 11/08/2019 11/11/2019 12:3 1 AM CDT R/O COVID-19 02/01/2020 02/01/2020 02/03/2020 2:00 AM COMPUTER ASSISTANT documented as of this encounter Care Teams Patient Account Specialist Relationship Specialty Start Date End Date Jina Banda MD PCP - General Internal Medicine 06/20/16 12/03/21 documented as of this encounter
--- OUTSIDE RECORDS SUMMARY | 2024-08-09 11:35 | XMS_ITS | Encounter Summary ---
Author Organization [facility] Address [address] [place] [address] Care Team Providers Care Sanitary Landfill Supervisor Name Role Phone Linda Gimenez MD Primary Care Provider Unav ailable Encounter Details Date Type Department Care Team (Latest Contact Info) Description 02/04/2008 Outpatient Historical [facility] PATRICIO Barahona, Bailee Alva, NO ADDRESS ON FILE Other Screening Mammogram Social History Tobacco Use Types Packs/Day Years Used Date Smoking Tobacco: Never Alcohol Use Standard Drinks/Week Comments Not Asked 0 (1 standard drink = 0.6 oz pur e alcohol) Comments No Sex and Gender Information Value Date Recorded Sex Assigned at Not on file Legal Sex Female 5:30 AM CLIPMAN Gender Identity Not on file Sexual Orientation Not on file documented as of this encounter Plan of Treatment Upcoming Encounters Date Type Department Care Team (Late st Contact Info) Description 09/08/2024 12:00 PM CDT Office Visit [facility] Heart and Vascular At [address] [place] [address] Randal Cooley MD [address] [place] [address] 2014 [place] [address] 10/27/2024 10:00 AM CDT Office Visit [facility] Heart and Vascular At [address] [place] [address] Randal Cooley MD [address] [place] [address] 2014 [place] [address] 10/28/2024 9:30 AM CDT Office Visit [facility] Urology [facility] [address] [facility] [address] [place] [address] [place] [address] [facility] [address] [place] [address] documented as of this encounter Procedures Procedure Name Priority Date/Time Associated Diagnosis Comments MAMMO SCREEN BILAT W OR WO CAD Routine 02/04/2008 8:06 AM CLIPMAN documented in this encounter Results * MAMMO DIGITAL SCREEN BILAT (02/04/2008 8:06 AM CLIPMAN) Anatomical Region Laterality Modality Breast Bilateral Other 02/04/2008 8:06 AM CLIPMAN Narrative 02/04/2008 11:46 PM CLIPMAN [place] [place], [place] [address] Admit Date: 02/04/2008 ELY WEI Sex: F Admit Prov: BAILEE BARAHONA Date: 1960 Primary Care Prov: PERNELL LINDA Joseph CMRN: [id number] Room: JOSUE SSN: [id number] IMAGING SERVICES Ordering Prov: BAILEE BARAHONA Accession Number: [id number] Interpretation BILATERAL SCREENING DIGITAL MAMMOGRAMS WITH COMPUTER [...] 1-Negative Recommendation: Normal interval follow-up Dictated by: DENVER ARREOLA Electronically signed by: DENVER ARREOLA 02/04/2008 23:46 Transcribed: 02/04/2008 19:55 AMK Procedure Note Denver Arreola MD - 11/21/2008 [facility] [address] [place], [place] [address] Admit Date: 02/04/2008 ELY WEI Sex: F Admit Prov: BAILEE BARAHONA Date:1960 Primary Care Prov: LINDA GIMENEZ CMRN: [id number] Room: [facility] SSN: [id number] IMAGING SERVICES Ordering Prov: BAILEE BARAHONA Interpretation BILATERAL SCREENING DIGITAL MAMMOGRAMS WITH COMPUTER ASSISTEDDIAGNOSIS 02/04/2008 History: Annual screening study. Comparison mammograms dating back to 2005 FINDINGS: The parenchyma is very dense bilaterally. This lowersthe sensitivity of mammography in detecting disease. There is no mass, malignant calcification, lymphadenopathy, architectural distortion orother sign of malignancy. The images were reviewed using the Mango-Mate. SUMMARY: Dense mammary parenchyma. No mammographic evidence of malignancy. Overall assessment: BIRADS category 1 - Negative Assessment BIRADS: 1-Negative Recommendation: Normal interval follow-up Dictated by: DENVER ARREOLA Electronically signed by: DENVER ARREOLA 02/04/2008 23:46 Transcribed: 02/04/2008 19:55 AMK Bailee Barahona DO MAMMO ORDERABLES Final Result documented in this encounter Visit Diagnoses Diagnosis Other screening mammogram documented in this encounter Additional Health Concerns Infection Onset Date Last Indicated Resolved Time R/O COVID-19 11/08/2019 11/08/2019 11/11/2019 12:3 1 AM CDT R/O COVID-19 02/01/2020 02/01/2020 02/03/2020 2:00 AM CLIPMAN documented as of this encounter Care Teams Sanitary Landfill Supervisor Relationship Specialty Start Date End Date Linda Gimenez MD PCP - General Internal Medicine 06/20/16 12/03/21 documented as of this encounter
--- OUTSIDE RECORDS SUMMARY | 2024-08-09 11:35 | XMS_ITS | Encounter Summary ---
Author Organization [facility] Address [address] [place] [address] Care Team Providers Care Shrub Planter Name Role Phone Jina Banda MD Primary Care Provider Unav ailable Encounter Details Date Type Department Care Team (Late st Contact Info) Description 04/14/2005 Outpatient Historical [facility] Adult [facility]ists [address] [phone] Jill Moran MD [address] [place] [id number] Social History Tobacco Use Types Packs/Day Years Used Date Smoking Tobacco: Never Assessed Comments Unknown Sex and Gender Information Value Date Recorded Sex Assigned at Not on file Legal Sex Female 5:30 AM BROADCAST TRANSMITTER OPERATOR Gender Identity Not on file Sexual Orientation Not on file documented as of this encounter Plan of Treatment Upcoming Encounters Date Type Department Care Team (Late st Contact Info) Description 09/08/2024 12:00 PM CDT Office Visit [facility] Heart and Vascular At [address] [place] [address] Randal Cooley MD [address] [place] [address] 2014 [place], [place] [id number] 10/27/2024 10:00 AM CDT Office Visit [facility] Heart and Vascular At [address] [place] [address] Randal Cooley MD [address] [place] [address] [address] [place] [address] 10/28/2024 9:30 AM CDT Office Visit [facility] Urology [facility] [address] [facility] [address] [place] [address] [place] [address] [facility] [address] [place] [address] documented as of this encounter Visit Diagnoses Not on filedocumented in this encounter Additional Health Concerns Infection Onset Date Last Indicated Resolved Time R/O COVID-19 11/08/2019 11/08/2019 11/11/2019 12:3 1 AM CDT R/O COVID-19 02/01/2020 02/01/2020 02/03/2020 2:00 AM BROADCAST TRANSMITTER OPERATOR documented as of this encounter Care Teams Shrub Planter Relationship Specialty Start Date End Date Jina Banda MD PCP - General Internal Medicine 06/20/16 12/03/21 documented as of this encounter
--- OUTSIDE RECORDS SUMMARY | 2024-08-09 11:35 | XMS_ITS | Encounter Summary ---
Author Organization [facility] Address [address] [place] [address] Care Team Providers Care Boarding Room Fixer Name Role Phone Jina Banda MD Primary [...] on file Legal Sex Female 5:30 AM PLASTICS PATTERNMAKER Gender Identity Not on file Sexual Orientation Not on file documented as of this encounter Plan of Treatment Upcoming Encounters Date Type Department Care Team (Late st Contact Info) Description 09/08/2024 12:00 PM CDT Office Visit [facility] Heart and Vascular At [address] [place] [address] Randal Cooley MD [address] [place] [address] 2014 [place] [address] 10/27/2024 10:00 AM CDT Office Visit [facility] Heart and Vascular At [address] [place] [address] Randal Cooley MD [address] [place] [address] 2014 [place] [address] 10/28/2024 9:30 AM CDT Office Visit [facility] Urology [facility] [address] [address] [facility] [address] [place] [address] [place] [address] [facility] [address] [facility] [address] [place] [address] documented as of this encounter Visit Diagnoses Diagnosis Iron deficiency anemia, unspecified documented in this encounter Additional Health Concerns Infection Onset Date Last Indicated Resolved Time R/O COVID-19 11/08/2019 11/08/2019 11/11/2019 12:3 1 AM CDT R/O COVID-19 02/01/2020 02/01/2020 02/03/2020 2:00 AM PLASTICS PATTERNMAKER documented as of this encounter Care Teams Boarding Room Fixer Relationship Specialty Start Date End Date Jina Banda MD PCP - General Internal Medicine 06/20/16 12/03/21 documented as of this encounter
--- OUTSIDE RECORDS SUMMARY | 2024-08-09 11:35 | XMS_ITS | Encounter Summary ---
Author Organization [facility] Address [address] [place] [address] Care Team Providers Care Surgery Assistant Name Role Phone Jina Banda MD Primary Care Provider Unav ailable Encounter Details Date Type Department Care Team (Late st Contact Info) Description 06/03/2007 Orders Only [facility] Internal Medicine - [facility] [address] [address] [facility] [address] [place] [address] Jina Banda MD NO ADDRESS ON FILE Social History Tobacco Use Types Packs/Day Years Used Date Smoking Tobacco: Never Assessed Comments Unknown Sex and Gender Information Value Date Recorded Sex Assigned at Not on file Legal Sex Female 5:30 AM SITE INSPECTOR Gender Identity Not on file Sexual Orientation Not on file documented as of this encounter Progress Notes * Jina Banda MD - 08/19/2007 7:26 PM CDT TIME:02:29 pm PATIENT`S HOME PHONE: PATIENT`S WORK PHONE: PATIENT`S INSURANCE: [facility] WHO TOOK THE CALL: Kecia Diego GENERAL INFORMATION PCP: inocencia. ALTERNATIVE PHONE NUMBER: [phone] WHO CALLED: Patient called. CURRENT ALLERGY LIST: GUAIFENESIN HUMIBID DM [facility] NUMBER: [phone] OTHER INFORMATION: Patient is not currently . [...] [facility] Heart and Vascular At [address] [place] [address] Randal Cooley MD [address] [place] [address] 2014 [place] [address] 10/27/2024 10:00 AM CDT Office Visit [facility] Heart and Vascular At [address] [place] [address] Randal Cooley MD [address] [place] [address] 2014 [place] [address] 10/28/2024 9:30 AM CDT Office Visit [facility] Urology [facility] [address] [address] [place] [address] [facility] [address] [place] [address] documented as of this encounter Visit Diagnoses Not on filedocumented in this encounter Additional Health Concerns Infection Onset Date Last Indicated Resolved Time R/O COVID-19 11/08/2019 11/08/2019 11/11/2019 12:3 1 AM CDT R/O COVID-19 02/01/2020 02/01/2020 02/03/2020 2:00 AM SITE INSPECTOR documented as of this encounter Care Teams Surgery Assistant Relationship Specialty Start Date End Date Jina Banda MD PCP - General Internal Medicine 06/20/16 12/03/21 documented as of this encounter
--- OUTSIDE RECORDS SUMMARY | 2024-08-09 11:35 | XMS_ITS | Encounter Summary ---
Author Organization [facility] Address [address] [place] [address] Care Team Providers Care Merchandise Deliverer Name Role Phone Jina Banda MD Primary Care Provider Unav ailable Encounter Details Date Type Department Care Team (Late st Contact Info) Description 12/03/2004 Outpatient Historical [facility] Charo Haynes [address] [facility] [address] [place] [address] SCREENING MAMM-MAILG NEOPL NEC (Primary Dx) Social History Tobacco Use Types Packs/Day Years Used Date Smoking Tobacco: Never Assessed Comments Unknown Sex and Gender Information Value Date Recorded Sex Assigned at Not on file Legal Sex Female 5:30 AM HEMATOLOGY NURSE EDUCATOR Gender Identity Not on file Sexual Orientation Not on file documented as of this encounter Plan of Treatment Upcoming Encounters Date Type Department Care Team (Late st Contact Info) Description 09/08/2024 12:00 PM CDT Office Visit [facility] Heart and Vascular At [address] [place] [address] Randal Cooley MD [address] [place] [address] 2014 [place] [address] 10/27/2024 10:00 AM CDT Office Visit [facility] Heart and Vascular At [address] [place] [address] Randal Cooley MD [address] [place] [address] 2014 [place] [address] 10/28/2024 9:30 AM CDT Office Visit [facility] Urology [facility] [address] [facility] [address] [place] [address] [place] [address] [facility] [address] [place] [address] documented as of this encounter Visit Diagnoses Diagnosis Other screening mammogram- Primary documented in this encounter Additional Health Concerns Infection Onset Date Last Indicated Resolved Time R/O COVID-19 11/08/2019 11/08/2019 11/11/2019 12:3 1 AM CDT R/O COVID-19 02/01/2020 02/01/2020 02/03/2020 2:00 AM HEMATOLOGY NURSE EDUCATOR documented as of this encounter Care Teams Merchandise Deliverer Relationship Specialty Start Date End Date Jina Banda MD PCP - General Internal Medicine 06/20/16 12/03/21 documented as of this encounter
--- OUTSIDE RECORDS SUMMARY | 2024-08-09 11:35 | XMS_ITS | Encounter Summary ---
Author Organization [facility] Address [address] [place] [address] Care Team Providers Care Pipe Organ Installer Name Role Phone Jina Banda MD Primary Care Provider Unav ailable Encounter Details Date Type Department Care Team (Late st Contact Info) Description 05/26/2007 Outpatient Historical [facility] Internal Medicine - [facility] [address] [address] [facility] [address] [place] [address] Jina Banda MD NO ADDRESS ON FILE Social History Tobacco Use Types Packs/Day Years Used Date Smoking Tobacco: Never Assessed Comments Unknown Sex and Gender Information Value Date Recorded Sex Assigned at Not on file Legal Sex Female 5:30 AM CARDIAC REHAB NURSE Gender Identity Not on file Sexual Orientation Not on file documented as of this encounter Plan of Treatment Upcoming Encounters Date Type Department Care Team (Late st Contact Info) Description 09/08/2024 12:00 PM CDT Office Visit [facility] Heart and Vascular At [address] [place] [address] Randal Cooley MD [address] [place] [address] 2014 [place] [address] 10/27/2024 10:00 AM CDT Office Visit [facility] Heart and Vascular At [address] [place] [address] Randal Cooley MD [address] [place] [address] 2014 [place] [address] 10/28/2024 9:30 AM CDT Office Visit [facility] [address] [facility] [address] [place] [address] [place] [address] [place] [address] documented as of this encounter Visit Diagnoses Not on filedocumented in this encounter Additional Health Concerns Infection Onset Date Last Indicated Resolved Time R/O COVID-19 11/08/2019 11/08/2019 11/11/2019 12:3 1 AM CDT R/O COVID-19 02/01/2020 02/01/2020 02/03/2020 2:00 AM CARDIAC REHAB NURSE documented as of this encounter Care Teams Pipe Organ Installer Relationship Specialty Start Date End Date Jina Banda MD PCP - General Internal Medicine 06/20/16 12/03/21 documented as of this encounter
--- OUTSIDE RECORDS SUMMARY | 2024-08-09 11:35 | XMS_ITS | Encounter Summary ---
Author Organization [facility] Address [address] [place] [address] Care Team Providers Care Operating Room Scheduler Name Role Phone Jina Banda MD Primary Care Provider Unav ailable Encounter Details Date Type Department Care Team (Latest Contact Info) Description 04/14/2005 Inpatient Historical HIS PATIENT IN A BED Jack Thompson MD [address] [place] [address] [phone] Jill Moran MD [address] [phone] INFLUENZA WITH PNEUMONIA (Primary Dx) Social History Tobacco Use Types Packs/Day Years Used Date Smoking Tobacco: Never Assessed Comments Unknown Sex and Gender Information Value Date Recorded Sex Assigned at Not on file Legal Sex Female 5:30 AM FICTION AND NONFICTION WRITER PROSE Gender Identity Not on file Sexual Orientation Not on file documented as of this encounter Plan of Treatment Upcoming Encounters Date Type Department Care Team (Late st Contact Info) Description 09/08/2024 12:00 PM CDT Office Visit [facility] At [address] [place] [address] Randal Cooley MD [address] [place] [address] 2014 [place] [address] 10/27/2024 10:00 AM CDT Office Visit [facility] At [address] [place] [address] Randal Cooley MD [address] [facility] [address] [place] [address] 10/28/2024 9:30 AM CDT Office Visit [facility] Urology [facility] [address] [place] [address] [place] [address] [facility] [address] [facility] [address] [place] [address] documented as of this encounter Procedures Procedure Name Priority Date/Time Associated Diagnosis Comments URINALYSIS WITH REFLEX CULTURE Routine 04/15/2005 8:55 AM FICTION AND NONFICTION WRITER PROSE URINALYSIS W/REFLEX MICROSCOPIC Routine 04/15/2005 8:55 AM FICTION AND NONFICTION WRITER PROSE MONONUCLEOSIS SCREEN Routine 04/14/2005 8:50 PM FICTION AND NONFICTION WRITER PROSE URINALYSIS WITH REFLEX CULTURE Routine 04/14/2005 7:01 PM FICTION AND NONFICTION WRITER PROSE URINALYSIS W/REFLEX MICROSCOPIC Routine 04/14/2005 7:01 PM FICTION AND NONFICTION WRITER PROSE CBC WITH DIFFERENTIAL Routine 04/14/2005 5:25 PM FICTION AND NONFICTION WRITER PROSE CBC WITH DIFFERENTIAL Routine 04/14/2005 5:25 PM FICTION AND NONFICTION WRITER PROSE TSH Routine 04/14/2005 5:25 PM FICTION AND NONFICTION WRITER PROSE COMPREHENSIVE METABOLIC PANEL Routine 04/14/2005 5:25 PM FICTION AND NONFICTION WRITER PROSE documented in this encounter Results * (ABNORMAL) URINALYSIS (04/15/2005 8:55 AM FICTION AND NONFICTION WRITER PROSE) COLOR UA Colorless INTERFACE SYSTEM CLARITY UA [...] 2-5 /HPF INTERFACE SYSTEM 04/15/2005 8:55 AM FICTION AND NONFICTION WRITER PROSE Jill Moran MD URINE ORDERABLES Final Result Performing Organization Address [facility] Phone Number INTERFACE SYSTEM Refer to clinic/hospital department * URINALYSIS WITH REFLEX CULTURE (04/15/2005 8:55 AM FICTION AND NONFICTION WRITER PROSE) URINE CULTURE ORDER Culture ordered INTERFACE SYSTEM Comment: Criteria for a reflex culture include one or more of the following: Abn ormal nitrite, leukocyte esterase, WBCs or RBCs. Lack of qualifying criteria does not exclude the possiblity of a urinary tract infection. Dilute urine, drug interference, etc. may decrease the sensitivity of the criteria analytes. 04/15/2005 8:55 AM FICTION AND NONFICTION WRITER PROSE Jill Moran MD URINE ORDERABLES Final Result Performing Organization Address [facility] Phone Number INTERFACE SYSTEM Refer to clinic/hospital department * MONONUCLEOSIS SCREEN (04/14/2005 8:50 PM FICTION AND NONFICTION WRITER PROSE) MONONUCLEOSIS SCREEN Negative Negative INTERFACE SYSTEM 04/14/2005 8:50 PM FICTION AND NONFICTION WRITER PROSE Jill Moran MD HEMATOLOGY ORDERABLES Final Re sult Performing Organization Address [facility] Phone Number INTERFACE SYSTEM Refer to clinic/hospital department * URINALYSIS (04/14/2005 7:01 PM FICTION AND NONFICTION WRITER PROSE) COLOR UA Yellow INTERFACE SYSTEM CLARITY UA [...] Negative Negative INTERFACE SYSTEM 04/14/2005 7:01 PM FICTION AND NONFICTION WRITER PROSE Jina Banda MD URINE ORDERABLES Final Resu lt Performing Organization Address [facility] de Phone Number INTERFACE SYSTEM Refer to clinic/hospital department * URINALYSIS WITH REFLEX CULTURE (04/14/2005 7:01 PM FICTION AND NONFICTION WRITER PROSE) URINE CULTURE ORDER Not indicated INTERFACE SYSTEM Comment: Criteria for a reflex culture include one or more of the following: Abn ormal nitrite, leukocyte esterase, WBCs or RBCs. Lack of qualifying criteria does not exclude the possiblity of a urinary tract infection. Dilute urine, drug interference, etc. may decrease the sensitivity of the criteria analytes. 04/14/2005 7:01 PM FICTION AND NONFICTION WRITER PROSE Jina Banda MD URINE ORDERABLES Final Resu lt Performing Organization Address [facility] Phone Number INTERFACE SYSTEM Refer to clinic/hospital department * CBC WITH DIFFERENTIAL (04/14/2005 5:25 PM FICTION AND NONFICTION WRITER PROSE) NEUTROPHILS 69 45 - 70 % INTERFAC [...] 0.20 K/uL INTERFACE SYSTEM 04/14/2005 5:25 PM FICTION AND NONFICTION WRITER PROSE eMrvin Butcher DO HEMATOLOGY ORDERABLES Final R esult Performing Organization Address [facility] [place] de Phone Number INTERFACE SYSTEM Refer to clinic/hospital department * (ABNORMAL) CBC WITH DIFFERENTIAL (04/14/2005 5:25 PM FICTION AND NONFICTION WRITER PROSE) WBC 3.5(L) 4.0 - 9.8 K/uL INTERFACE [...] 12.4 fL INTERFACE SYSTEM 04/14/2005 5:25 PM FICTION AND NONFICTION WRITER PROSE Mervin Butcher DO HEMATOLOGY ORDERABLES Final R esult Performing Organization Address [facility] [place] Phone Number INTERFACE SYSTEM Refer to clinic/hospital department * TSH (04/14/2005 5:25 PM FICTION AND NONFICTION WRITER PROSE) Pathologist [facility] TSH 0.45 0.27 - 4.20 uU/mL INTERFACE SYSTEM 04/14/2005 5:25 PM FICTION AND NONFICTION WRITER PROSE Mervin Butcher DO CHEMISTRY ORDERABLES Final Re sult Performing Organization Address [facility] [place] Phone Number INTERFACE SYSTEM Refer to clinic/hospital department * (ABNORMAL) COMPREHENSIVE METABOLIC PANEL (04/14/2005 5:25 PM FICTION AND NONFICTION WRITER PROSE) GLUCOSE 102 65 - 109 mg/dL INTERFACE [...] 30 mmol/L INTERFACE SYSTEM 04/14/2005 5:25 PM FICTION AND NONFICTION WRITER PROSE us Mevrin Butcher DO CHEMISTRY ORDERABLES Final Re sult INTERFACE SYSTEM Refer to clinic/hospital department documented in this encounter Visit Diagnoses Diagnosis Influenza with pneumonia- Primary documented in this encounter Additional Health Concerns Infection Onset Date Last Indicated Resolved Time R/O COVID-19 11/08/2019 11/08/2019 11/11/2019 12:3 1 AM CDT R/O COVID-19 02/01/2020 02/01/2020 02/03/2020 2:00 AM FICTION AND NONFICTION WRITER PROSE documented as of this encounter Care Teams Operating Room Scheduler Relationship Specialty Start Date End Date Jina Banda MD PCP - General Internal Medicine 06/20/16 12/03/21 documented as of this encounter
--- OUTSIDE RECORDS SUMMARY | 2024-08-09 11:35 | XMS_ITS | Encounter Summary ---
Author Organization [facility] Address [address] [place] [address] Care Team Providers Care Nail Puller Name Role Phone Jina Banda MD Primary Care Provider Unav ailable Encounter Details Date Type Department Care Team (Late st Contact Info) Description 05/26/2007 Outpatient Historical [facility] Internal Medicine - [facility] [address] [address] [facility] [address] [place] [address] Jina Banda MD NO ADDRESS ON FILE Social History Tobacco Use Types Packs/Day Years Used Date Smoking Tobacco: Never Assessed Comments Unknown Sex and Gender Information Value Date Recorded Sex Assigned at Not on file Legal Sex Female 5:30 AM TYPEWRITER REPAIRER Gender Identity Not on file Sexual Orientation Not on file documented as of this encounter Plan of Treatment Upcoming Encounters Date Type Department Care Team (Late st Contact Info) Description 09/08/2024 12:00 PM CDT Office Visit [facility] Heart and Vascular At [address] [place] [address] Randal Cooley MD [address] [place] [address] 2014 [place] [address] 10/27/2024 10:00 AM CDT Office Visit [facility] Heart and Vascular At [address] [place] [address] Randal Cooley MD [address] [place] [address] 2014 [place] [address] 10/28/2024 9:30 AM CDT Office Visit [facility] Urology [facility] [address] [facility] [address] [place] [address] [place] [address] [facility] [address] [place] [address] documented as of this encounter Visit Diagnoses Not on filedocumented in this encounter Additional Health Concerns Infection Onset Date Last Indicated Resolved Time R/O COVID-19 11/08/2019 11/08/2019 11/11/2019 12:3 1 AM CDT R/O COVID-19 02/01/2020 02/01/2020 02/03/2020 2:00 AM TYPEWRITER REPAIRER documented as of this encounter Care Teams Nail Puller Relationship Specialty Start Date End Date Jina Banda MD PCP - General Internal Medicine 06/20/16 12/03/21 documented as of this encounter
--- OUTSIDE RECORDS SUMMARY | 2024-08-09 11:35 | XMS_ITS | Encounter Summary ---
Author Organization [facility] Address 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 Gender Identity Not on file Sexual Orientation Not on file documented as of this encounter Plan of Treatment Upcoming Encounters Date Type Department Care Team (Late st Contact Info) Description 09/08/2024 12:00 PM CDT Office Visit [facility] Heart and Vascular At [address] [place] [address] Randal Cooley MD [address] [place] [address] 2014 [place], [place] [id number] 10/27/2024 10:00 AM CDT Office Visit [facility] Heart and Vascular At [address] [place] [address] Randal Cooley MD [address] [place] [address] 2015 [place] [address] 10/28/2024 9:30 AM CDT Office Visit [facility] Urology [facility] [address] [facility] [address] [place] [address] [place] [address] [facility] [address] [place] [address] documented as of this encounter Visit Diagnoses Not on filedocumented in this encounter Additional Health Concerns Infection Onset Date Last Indicated Resolved Time R/O COVID-19 11/08/2019 11/08/2019 11/11/2019 12:3 1 AM CDT R/O COVID-19 02/01/2020 02/01/2020 02/03/2020 2:00 AM POLISH MAKER documented as of this encounter Care Teams Watch Supervisor Relationship Specialty Start Date End Date Jina Banda MD PCP - General Internal Medicine 06/20/16 12/03/21 documented as of this encounter
--- OUTSIDE RECORDS SUMMARY | 2024-08-09 11:35 | XMS_ITS | Encounter Summary ---
Author Organization [facility] Address [address] [place] [address] Care Team Providers Care Clothing Trades Workers Name Role Phone Jina Banda MD Primary Care Provider Unav ailable Encounter Details Date Type Department Care Team (Late st Contact Info) Description 02/12/2005 Outpatient Historical [facility] Internal Medicine - [facility] [address] [address] [facility] [address] [place] [address] Jina Banda MD NO ADDRESS ON FILE Social History Tobacco Use Types Packs/Day Years Used Date Smoking Tobacco: Never Assessed Comments Unknown Sex and Gender Information Value Date Recorded Sex Assigned at Not on file 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 Gender Identity Not on file Sexual Orientation Not on file documented as of this encounter Last Filed Vital Signs Vital Sign Reading Time Taken Comments Blood Pressure 114/60 02/12/2005 2:00 PM KELLER MACHINE OPERATOR Pulse 80 02/12/2005 2:00 PM KELLER MACHINE OPERATOR Temperature 37.1 C (98.8 F) 02/12/2005 2:00 PM KELLER MACHINE OPERATOR Respiratory Rate - - Oxygen Saturation - - Inhaled Oxygen Concentration - - Weight 63.5 kg (140 lb) 02/12/2005 2:00 PM KELLER MACHINE OPERATOR Height - - Body Mass Index - - documented in this encounter Plan of Treatment Upcoming Encounters Date Type Department Care Team (Late st Contact Info) Description 09/08/2024 12:00 PM CDT Office Visit [facility] Heart and Vascular At [address] [place] [address] Randal Cooley MD [address] [place] [address] [address] [place] [address] 10/27/2024 10:00 AM CDT Office Visit [facility] Heart and Vascular At [address] [place] [address] Randal Cooley MD [address] [place] [address] 2014 [place] [address] 10/28/2024 9:30 AM CDT Office Visit [facility] Urology [facility] [address] [place] [address] [place] [address] [place] [address] documented as of this encounter Visit Diagnoses Not on filedocumented in this encounter Additional Health Concerns Infection Onset Date Last Indicated Resolved Time R/O COVID-19 11/08/2019 11/08/2019 11/11/2019 12:3 1 AM CDT R/O COVID-19 02/01/2020 02/01/2020 02/03/2020 2:00 AM KELLER MACHINE OPERATOR documented as of this encounter Care Teams Clothing Trades Workers Relationship Specialty Start Date End Date Jina Banda MD PCP - General Internal Medicine 06/20/16 12/03/21 documented as of this encounter
--- OUTSIDE RECORDS SUMMARY | 2024-08-09 11:35 | XMS_ITS | Encounter Summary ---
Author Organization [facility] Address [address] [place] [address] Care Team Providers Care Water Maintenance Supervisor Name Role Phone Jina Banda MD Primary Care Provider Unav ailable Encounter Details Date Type Department Care Team (Late st Contact Info) Description 06/16/2006 Outpatient Historical [facility] Internal Medicine - [facility] [address] [address] [facility] [address] [place] [address] Jina Banda MD NO ADDRESS ON FILE Other Specified Visual Disturbances (Primary Dx) Social History Tobacco Use Types Packs/Day Years Used Date Smoking Tobacco: Never Assessed Comments Unknown Sex and Gender Information Value Date Recorded Sex Assigned at Not on file 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 Gender Identity Not on file Sexual Orientation Not on file documented as of this encounter Plan of Treatment Upcoming Encounters Date Type Department Care Team (Late st Contact Info) Description 09/08/2024 12:00 PM CDT Office Visit [facility] Heart and Vascular At [address] [place] [address] Randal Cooley MD [address] [place] [address] 2014 [place] [address] 10/27/2024 10:00 AM CDT Office Visit [facility] Heart and Vascular At [address] [place] [address] Randal Cooley MD [address] [place] [address] 2014 [place] [address] 10/28/2024 9:30 AM CDT Office Visit [facility] Urology [facility] [address] [address] [address] [place] [address] [place] [address] [place] [address] documented as of this encounter [...] and non- Americans is available on the [facility] Intranet at: [email or web address] Select: Lab Policies and Procedures [...] COVID-19 02/01/2020 02/01/2020 02/03/2020 2:00 AM SITE MANAGER documented as of this encounter Care Teams Water Maintenance Supervisor Relationship Specialty Start Date End Date Jina Banda MD PCP - General Internal Medicine 06/20/16 12/03/21 documented as of this encounter
--- OUTSIDE RECORDS SUMMARY | 2024-08-09 11:35 | XMS_ITS | Encounter Summary ---
Author Organization [facility] Address [address] [place] [address] Care Team Providers Care Multimedia Manager Name Role Phone Jina Banda MD Primary Care Provider Unav ailable Encounter Details Date Type Department Care Team (Late st Contact Info) Description 08/02/2014 Nurse Triage Report [facility] ABSTRACTION Sheeba Sotomayor, RN [address] [address] Social History Tobacco Use Types Packs/Day Years Used Date Smoking Tobacco: Never Smokeless Tobacco: Never Alcohol Use Standard Drinks/Week Comments No 0 (1 standard drink = 0.6 oz pur e alcohol) Comments No Sex and Gender Information Value Date Recorded Sex Assigned at Not on file 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 Report to Dr. Banda <<<<<<<< TRIAGE NOTE >>>>>>>> Triage Note: Planer Setter Sheeba Sotomayor added this note on Aug 02 2014 11:41PM: Spouse is in an [id number] ED and requesting information on pre-auth for [...] Description 09/08/2024 12:00 PM CDT Office Visit [facility] Heart and Vascular At [address] [place] [address] Randal Cooley MD [address] [place] [address] 2014 [place] [address] 10/27/2024 10:00 AM CDT Office Visit [facility] Heart and Vascular At [address] [place] [address] Randal Cooley MD [address] [place] [address] 2014 [place] [address] 10/28/2024 9:30 AM CDT Office Visit [facility] Urology [facility] [address] [place] [address] [place] [address] [facility] [address] [place] [address] documented as of this encounter Visit Diagnoses Not on filedocumented in this encounter Additional Health Concerns Infection Onset Date Last Indicated Resolved Time R/O COVID-19 11/08/2019 11/08/2019 11/11/2019 12:3 1 AM CDT R/O COVID-19 02/01/2020 02/01/2020 02/03/2020 2:00 AM DRAFTING INSTRUCTOR documented as of this encounter Care Teams Multimedia Manager Relationship Specialty Start Date End Date Jina Banda MD PCP - General Internal Medicine 06/20/16 12/03/21 documented as of this encounter
--- OUTSIDE RECORDS SUMMARY | 2024-08-09 11:35 | XMS_ITS | Encounter Summary ---
Author Organization [facility] Address [address] [place] [address] Care Team Providers Care Turner And Former Automatic Name Role Phone Jina Banda MD Primary Care Provider Unav ailable Encounter Details Date Type Department Care Team (Late st Contact Info) Description 05/26/2007 Orders Only [facility] Internal Medicine - [facility] [address] [address] [facility] [address] [place] [address] Jina Banda MD NO ADDRESS ON FILE Social History Tobacco Use Types Packs/Day Years Used Date Smoking Tobacco: Never Assessed Comments Unknown Sex and Gender Information Value Date Recorded Sex Assigned at Not on file 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 ASSESSMENT/PLAN: 244.9-HYPOTHYROIDISM LAB ORDERS: Order number: [id number] Test Ordered: TSH [id number] MEDICATIONS: Pt states that amoxicillin causes diarrhea but she tolerates this well. [employer]CL[employer] ORAL CAPSULE CONVENTIONAL 250 MG, 1 Three Times A Day, 30 Dispensed, status: NEW PRESCRIPTION, 05/26/2007. LAB ORDERS: Order number: [id number] Test Ordered: CBC (INCLUDES DIFF/PLT) 6399 SPECIALTY REFERRAL: GASTROENTEROLOGY Dr. Thelma Haile ph: [phone] fax: [phone].for further evaluation of intermittent abdominal pain. RETURN VISIT : Instructed to call if not improving. Electronically Signed by: Jina Banda MD on Saturday, May 26, 2007 documented in this encounter Plan of Treatment Upcoming Encounters Date Type Department Care Team (Late st Contact Info) Description 09/08/2024 12:00 PM CDT Office Visit [facility] Heart and Vascular At [address] [place] [address] Randal Cooley MD [address] [place] [address] [address] [place] [address] 10/27/2024 10:00 AM CDT Office Visit [facility] Heart and Vascular At [address] [place] [address] Randal Cooley MD [address] [place] [address] 2014 [place] [address] 10/28/2024 9:30 AM CDT Office Visit [facility] Urology [facility] [address] [facility] [address] [place] [address] [place] [address] [facility] 260 [place] [address] documented as of this encounter Visit Diagnoses Not on filedocumented in this encounter Additional Health Concerns Infection Onset Date Last Indicated Resolved Time R/O COVID-19 11/08/2019 11/08/2019 11/11/2019 12:3 1 AM CDT R/O COVID-19 02/01/2020 02/01/2020 02/03/2020 2:00 AM PROCESS OWNER documented as of this encounter Care Teams Turner And Former Automatic Relationship Specialty Start Date End Date Jina Banda MD PCP - General Internal Medicine 06/20/16 12/03/21 documented as of this encounter
[2024-08-09 15:56] LABS: Kit Draw Collected
== END 2024-08-09 11:28 | disposition home or self-care (01) ==
LOC: ANHGOSHLAB 11:28
PROVIDERS: PCP Internal Medicine; Visit Provider Clinical Nurse Specialist
DX: E03.9 Hypothyroidism, unspecified (principal); E55.9 Vitamin D deficiency, unspecified; I10 Essential (primary) hypertension; R42 Dizziness and giddiness
CPT/HCPCS: 36415

== ENCOUNTER 2024-12-05 01:21 | Day surgery (SDC) | payer MEDICARE, SELFPAY ==
[2024-11-23 13:28] VITALS: BMI 28.8
--- NOTE | 2024-11-23 13:41 | PC.NURSE ---
Report to the Outpatient Waiting Room, entrance under the green pavilion located off [facility], at time __2:15pm on date ___12/05/24 ____. Planned Procedure Time: 3:15pm .? Time changes happen often and if your time is changed the preop area will call you the afternoon before. - You and your visitor will be asked to self-screen and do not enter if you have any COVID symptoms. Please call surgeon if you need to reschedule. - A mask is optional within the hospital at this time. Patients may have Breakfast and Light Lunch/ liquids until 2 hours prior to surgery, Nothing except sip of water after 1:15pm that day until post procedure. Take only the following medications with a SIP of water on the morning of surgery: Morning Medications DO NOT STOP ANY OF YOUR OTHER PRESCRIPTION MEDICATIONS PRIOR TO SURGERY EXCEPT THE FOLLOWING Medications to discontinue per physician Pt to check with Dr Marroquin office later today to see if ASPIRIN needs held PREOP Date to take last dose Pending Dr Marorquin instructions w pt Please no make-up, nail swedish, hairspray, perfume, deodorant, or body powder the day of surgery.? No jewelry (including any body piercings) or valuables the day of surgery, leave them at home.? Please take a shower or bath the night before, or the morning of, surgery with an antibacterial soap.(Gold Dial)? Wear comfortable, loose fitting clothing.? - Jewelry must be removed prior to entering the operating room.? Rings and piercings that are not removed may be cut off. - The hospital will not accept responsibility for valuables.? - Please leave all valuables, including medications, at home the day of surgery. If you are going home after surgery, a licensed special client bus driver must drive you home.? - NO public transportation without another adult if you receive anesthesia. - We recommend that an adult stay with you for 24 hours following discharge. - We also recommend that you do not drive, make important decision, drink alcoholic beverages, or take any drugs that were not prescribed by your health care provider for at least 24 hours after your discharge time.\ Pt aware she cannot drive for [address] MARROQUIN. Follow any additional instructions given to you from your surgeon. Telephone instructions given to _Patient and asked if any additional questions and then verbalized understanding. Patient advised to call surgeon office or pre surgery nurse liaison [phone] if any additional questions.
--- NOTE | ~2024-12-05 | XR_ITS ---
XR fluoroscopy no charge Indication: Bilateral SI joint intra-articular steroid injection TECHNIQUE: Fluoroscopy used during Bilateral SI joint intra-articular steroid injection performed by [Crow Gore MD] on 12/05/2024. One-hour 1 seconds of fluoroscopy time with 7 fluoroscopic images captured. FINDINGS: Correlate with procedure note. IMPRESSION: Fluoroscopy used during Bilateral SI joint intra-articular steroid injection. Reviewed, dictated and finalized at location O.
--- NOTE | 2024-12-05 13:33 | WPDHPUPDATE1 ---
History and Physical Update Update Date/Time: 12/05/24 13:33 History and Physical has been reviewed, including an updated exam of the patient. There are NO changes in the patient's condition. Risks, benefits, and alternatives have been discussed and questions answered. Patient agrees to proceed with procedure.
--- NOTE | 2024-12-05 13:34 | W.PM.PROC2 ---
Procedure Note - Detailed Date of Procedure 12/05/24 Pre-op Diagnosis Sacroiliitis, chronic low back pain Post-op Diagnosis Same Procedure Performed Bilateral Sacroiliac Joint Steroid Injection under Fluoroscopic Guidance and with Contrast Control. Surgeon Crow Gore MD Psychiatric Nursing Assistant None Anesthesia Local Description of Procedure INFORMED CONSENT: Risks, benefits and alternatives to the procedure were discussed in detail with the patient who expressed explicit understanding and consent to proceed. Patient was informed verbally and in written form regarding the risks associated with the procedure including the low risk of serious infection, bleeding/bruising, allergic reaction, nerve or organ injury, paralysis, procedural site pain or discomfort, worsening pain and/or mobility, failure to treat and/or disfigurement. The patient expressed explicit understanding and consent to proceed. All materials required for the procedure were available prior to procedure start. Site and side were marked prior to procedure and confirmed in the presence of the patient. PROCEDURE IN DETAIL: The patient was brought to the procedural suite and placed in the prone position. Patient was made comfortable with use of pillows under the head/chest, hips and ankles. Skin overlying the injection site on the affected side(s) was prepared broadly with ChloraPrep applicator and draped in a sterile manner. Aseptic technique was used throughout. The right SI joint was identified in the AP view and contralateral oblique angulation with caudal tilt was utilized to optimize visualization of the inferior and medial joint line representing the posterior portion of the joint. Local anesthesia was established by infiltration with approximately 5 mL of 2% lidocaine via a 1-1/2 inch 27-gauge needle. A 22-gauge 3.5 inch Quincke spinal needle was advanced until the needle entered the inferior third of the joint space approximately 1cm cephalad from its most inferior point. In the AP view, 0.5 mL of Omnipaque 300 contrast medium was injected after negative aspiration for CSF, blood or other bodily fluid, showing appropriate intra-articular spread of contrast without evidence of intravascular, perineural or intrathecal placement. A 1.5 mL solution containing 5 mg of dexamethasone in 0.5% PF bupivacaine was injected after repeat negative aspiration. Appropriate spread of the injectate was confirmed with washout of previous injected contrast. No parasthesias were elicited. Needle was removed completely intact without difficulty. The same exact procedure was repeated for all remaining levels on the contralateral side, left SI joint, modified as necessary to accommodate for the new target location with identical findings/results and no evidence of complication. Images were saved and documented in the patient chart. Patient's skin was cleansed and sterile bandage applied. The patient tolerated the procedure well. The patient was transported to the recovery area in stable condition where they were observed for an appropriate amount of time prior to discharge, without evidence of complication. The patient was instructed to avoid excessive activity for the next 48 hours, including climbing and frequent use of stairs. Showers only for 48 hours. They were instructed not to drive or operate heavy machinery for 24 hours. They are to monitor for severe headaches, fevers, chills, night sweats, erythema/swelling at the site or any other signs of infection, bleeding/bruising, bowel or bladder changes as well as new pain, weakness or numbness in the upper or lower extremity. Should they notice these changes, they are instructed to call our office immediately or report directly to the nearest Emergency Department if no answer or if after posted office hours. COMPLICATIONS: None COMMENTS: None CONTRAST WASTED: 29mL Omnipaque 300. Complications No immediate complications Condition Stable Disposition Same day [facility] Billing Surgery - Charge Forward: Surgery Billing
[2024-12-05] MEDS: BUPivacaine HCL 0.25% PF 10 ML VIAL INFILTRATE (13:54)
[2024-12-05] MEDS: PHARMACIST COMMUNICATION ORDER 1 EACH XX (13:55)
[2024-12-05 14:49] VITALS: BP 117/69; PULSE 70; RESP 16; TEMP 36.1; O2SAT 96
[2024-12-05 14:55] VITALS: BP 146/86; PULSE 75; RESP 18; O2SAT 98
[2024-12-05 15:02] VITALS: BP 141/88; PULSE 79; RESP 22; O2SAT 100
[2024-12-05 15:05] VITALS: BP 137/70; PULSE 61; RESP 16; O2SAT 100
== END 2024-12-05 15:19 | disposition home or self-care (01) ==
PROVIDERS: PCP Clinical Nurse Specialist; Visit Provider Anesthesiology Pain Medicine
PROC: (CPT G0260; principal; 2024-12-05 15:15)
DX: M46.1 Sacroiliitis, not elsewhere classified (principal); M48.061 Spinal stenosis, lumbar region without neurogenic claudication; M47.816 Spondylosis without myelopathy or radiculopathy, lumbar region
CPT/HCPCS: G0260; 99199; Q9965

== ENCOUNTER 2025-01-09 06:27 | Emergency (ER) | payer MEDICARE, SELFPAY ==
--- OUTSIDE RECORDS SUMMARY | 2017-12-28 11:48 | XMS_ITS | Continuity of Care Document ---
Author Organization [facility] Address [address] [place] [address] Phone Care Team Providers Care Extruder Operator Multiple Name Role Phone Rafat Garces MD Unavailable Unavailable Allergies, Adverse Reactions, Alerts Substance Reaction Status Criticality sulfanilamide Active No Information sulfanilamide Unknown Active No Information Medications Medication Instructions Dosage Effective Dates (start - stop) Status Comments fluocinonide 0.05 % topical cream apply by topical route to affected area in Physical Therapy during Phonopheresis- dispense 60 gram tube - Active levothyroxine 125 mcg tablet take 1 tablet by oral route every day 125 MCG - Active metoprolol tartrate 25 mg tablet take 1 tablet by oral route 2 times every day 25 MG - Active Xanax 0.5 mg tablet take 1 tablet by oral route 3 times every day 0.5 MG - Active venlafaxine 75 mg tablet take 1 tablet by oral route 2 times every day with food 75 MG - Active progesterone micronized 200 mg capsule take 1 capsule by oral route every day for 12 days in the evening sequentially per 28 day cycle 200 MG - Active aspirin 81 mg tablet,delayed release take 1 tablet by oral route every day 81 MG - Active Vitamin D3 1,000 unit capsule - Active iron 18 mg tablet - Active SYNTHROID (unknown strength) Not Available - Active Procedures Procedure Date OFFICE/OUTPATIENT VISIT EST OFFICE/OUTPATIENT VISIT EST OFFICE/OUTPATIENT VISIT EST OFFICE/OUTPATIENT VISIT EST OFFICE/OUTPATIENT VISIT EST OFFICE/OUTPATIENT VISIT NEW OFFICE/OUTPATIENT VISIT NEW OFFICE/OUTPATIENT VISIT EST URINALYSIS NONAUTO W/O SCOPE PREV VISIT EST AGE 40-64 Advance Directives Directive Yes / No Effective Date File Name No Information Encounters Encounter Description Practice Location Reason(s) For Visit Diagnoses Date Provider Providers Copied on Encounter [facility], [address] [address], [place], [place], [facility], tel:[phone] [facility] No Information 8 Dez Dogulass. [address], [place], [place], [id number] , [place]. tel: [phone] OFFICE/OUTPA TIENT VISIT EST [facility], [address] [place] [address], [facility], [phone] [facility] Body mass index (BMI) 28.0-28.9, adultBiceps tendinitis of right upper extremity 8 Dez Douglass. [address], [place], [place], [id number] , [place]. tel: [phone] OFFICE/OUTPA TIENT VISIT EST [facility], [address] [place] [address], [id number], tel:[phone] [facility] Rotator cuff tear arthropathy of right shoulderOther specific arthropathies, not elsewhere classified, right shoulder 0- 8 Avelino Fowler. [address] [place] [address], [id number] . tel: [phone] OFFICE/OUTPA TIENT VISIT EST [facility], [address] [place] [address], [id number], [place] tel:[phone] [facility] Impingement syndrome of right shoulder - 8 Avelino Fowler. [address] [place] [address], [id number] . tel: [phone] OFFICE/OUTPA TIENT VISIT EST [facility], [address] [place] [address], [facility], tel:[phone] [facility] Right shoulder tendonitis 0 8 Avelino Fowler. [address] [place] [address], [id number] . tel: [phone] OFFICE/OUTPA TIENT VISIT EST [facility], [address] [place] [address], [address], [place] tel:[phone] [facility] Impingement syndrome of right shoulder Jun-0 8 Avelino Fowler. [address] [place] [address], [id number] . tel: [phone] OFFICE/OUTPA TIENT VISIT [facility], [address] [place] [address], [id number], [place] tel:[phone] [facility] Bursitis of right shoulderBody mass index (BMI) 28.0-28.9, adultTrochanter ic bursitis of left hipOther enthesopathies, not elsewhere classified 7 Avelino Malcolm. [address] [place] [address], [id number] . tel: [phone] Referring Provider: Jina Joseph, [address], [place], [address] . tel:[phone] OFFICE/OUTPA TIENT VISIT [facility], [address] [place] [address], [id number], [place] tel:[phone] [facility] GANGLION CYST (chief complaint) Ganglion cyst 4 Darrel Jeffries. [address] [place] [address], [id number] . tel: [phone] OFFICE/OUTPA TIENT VISIT EST [facility], [address] [place] [address], [id number], [place] tel:[phone] [facility] Medial epicondylitis of elbow 3 Avelino Fowler. [address] [place] [address], [id number] . 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 [address], [place], [place], [id number] . tel: [phone] Family History Family Member Type Diagnosis Age At Onset Father Problem (finding) coronary arterioscleros is Father Problem (finding) Payers Payer name Insurance type Covered democrat ID Authoriza tion(s) Blue Access Choice PPO E2 [id number] Social History Type Description Quantity Date Captured Comments Alcohol Use Details Unknown Caffeine Use Details Unknown Tobacco Use Status No Information Smoking Status No Information Sex Female Chief Complaint And Reason For Visit No Information Reason For Referral Reason For Referral No Information Plan Of Treatment Date Type Action Status Referral Ordered: MRI ANY JT UXTR C-MATRL Appointment date/timeframe: 12/21/2017 ordered Referral Ordered: RADEX KATT COMPL MINIMUM 2 VIEWS RT ordered Referral Ordered: RADEX FNGR MINIMUM 2 VIEWS RT ordered Referral Ordered: RADEX ELBW COMPL MINIMUM 3 VIEWS LT elbow ordered History Of Present Illness Encounter Date Complaint History Of Prese nt Illness GANGLION CYST Functional Status Date Functional Assessmen t No Information Instructions Date Instruction Additional Infor mation Activity as tolerated Related to Biceps tendinitis of right upper extremity Apply ice as tolerated. Related to Biceps tendinitis of right upper extremity Giving encouragement to exercise Related to Body mass index (BMI) 28.0-28.9, adult Take medication as directed. Rel ated to Right shoulder tendonitis Apply ice as tolerated. Related to Right shoulder tendonitis Activity as tolerated Related to Trochanteric bursitis of left hip Home exercise program Related to Trochanteric bursitis of left hip Apply ice as tolerated. Related to Trochanteric bursitis of left hip Weight monitoring Related to Bod y mass index (BMI) 28.0-28.9, adult Assessments Type Assessment Date No Information Patient Care Teams Name Effective Dates (start - stop) Status Members No Information
--- OUTSIDE RECORDS SUMMARY | 2023-05-18 04:25 | XMS_ITS | Continuity of Care Document ---
Author Organization [facility] Address [address] [place] [address] Phone Care Team Providers Care Scooter Mechanic Name Role Phone Surgery [employer] Unavailable Unavailable Advance Directives Directive Yes / No Effective Date File Name No Information Encounters Encounter Description Practice Location Reason(s) For Visit Diagnoses Date Provider Providers Copied on Encounter [facility], [address], [place], [id number], [place] tel:[phone] [facility] [place] [facility] No Information Surgery - [facility]. [address], [place], [id number], [place]. tel:[phone] Referring Provider: Volodymyr Vicente, [address] [place], [address]. tel:[phone] Family History Family Member Type Diagnosis Age At Onset No Information Payers Payer name Insurance type Covered democrat ID Authoriza tion(s) [facility] [id number] Social History Type Description Quantity Date Captured Comments Sex Female Smoking Status No Information Chief Complaint And Reason For Visit No Information Reason For Referral Reason For Referral No Information History Of Present Illness Encounter Date Complaint History Of Prese nt Illness No Information Functional Status Date Functional Assessmen t No Information Instructions Date Instruction Additional Infor mation No Information Assessments Type Assessment Date No Information Patient Care Teams Name Effective Dates (start - stop) Status Members No Information
--- OUTSIDE RECORDS SUMMARY | 2023-06-03 09:15 | XMS_ITS | Continuity of Care Document ---
Author Organization [facility] Address [address] [place] [address] Phone Care Team Providers Care Oral Surgeon Name Role Phone Niharika Tomlinson OD Unavailable Unavailable Allergies, Adverse Reactions, Alerts Substance Reaction Status Criticality No Known Allergies Active No Inform ation Medications Medication Instructions Dosage Effective Dates (start - stop) Status Comments prednisolone acetate 1 % eye drops,suspension Instill 1 drop QID to the operative eye starting 2 days before surgery, continue for 7 days after, then BID until advised otherwise by physician Disp 10 ml - Active ketorolac 0.4 % eye drops instill 1 drop in operative eye QID for 9 days starting 2 days prior to surgery Disp 5ml - No Longer Active ofloxacin 0.3 % eye drops instill i gt to operative eye QID x 9 days starting 2 days before surgery Disp 5ml - No Longer Active Procedures Procedure Date REFRACTION POSTOP FOLLOW-UP VISIT POSTOP FOLLOW-UP VISIT CATARACT SURG W/IOL IOL MASTER, PROF COMP ONLY POSTOP FOLLOW-UP VISIT CATARACT SURG W/IOL EYE EXAM, NEW PATIENT IOL MASTER Post Operative Kit / Medical Supply By P rescription Advance Directives Directive Yes / No Effective Date File Name No Information Encounters Encounter Description Practice Location Reason(s) For Visit Diagnoses Date Provider Providers Copied on Encounter [facility], [address] [place] [address], [id number] , [place] tel:[phone] [facility] Post-op cataract surgery (chief complaint) PresbyopiaPresenc e of intraocular lensOther specified postprocedural statesCrystalline deposits in vitreous body, left eyeHypermetropia, bilateralRegular astigmatism, bilateral Mar-2 0-202 4 Davi Bundy. [address] [place] [address], [id number], [place]. tel:[phone] Referring Provider: Niharika Martinez, [address] [place] [address], [id number]. tel:[phone] [facility], [address] [place] [address], [id number] , [place] tel:[phone] [facility] Post-op cataract surgery (chief complaint) Cataract extraction status, right eye Mar-0 5-202 4 Davi Bundy. [address] [place] [address], [id number], [place]. [phone] Referring Provider: Niharika Martinez, [address] [place] [address], [id number]. tel:[phone] [facility], [address] [place] [address], [id number] , [place] tel:[phone] [facility] Combined forms of age-related cataract, right eye Mar-0 4-202 4 Eladio Helm. [address] [place] [address], [id number], [place]. tel:[phone] Referring Provider: Volodymyr Vicente, [address] [place] [address], [id number]. tel:[phone] [facility], [address] [place] [address], [id number] , [place] tel:[phone] [facility] Combined forms of age-related cataract, right eye Mar-0 3-202 4 Eladio Helm. [address] [place] [address], [id number], [place]. tel:[phone] [facility], [address] [place] [address], [id number] , [place] tel:[phone] [facility] Post-op cataract surgery (chief complaint) Cataract extraction status, left eye 4 Radha Petit. [address] [place] [address], [id number], [place]. tel:[phone] Referring Provider: Damaso Alberto, [address] [place] [address], [id number]. tel:[phone] [facility], [address] [place] [address], [id number] , [place] tel:[phone] [facility] No Information 4 Eladio Helm. [address] [place] [address], [id number], [place]. tel:[phone] Referring Provider: Volodymyr Vicente, [address] [place] [address], [id number]. tel:[phone] [facility], [address] [place] [address], [id number] , [place] tel:[phone] [facility] No Information 4 Eladio Helm. [address] [place] [address], [id number], [place]. tel:[phone] [facility], [address] [place] [address], [id number] , [place] tel:[phone] [facility] cataract evaluation (chief complaint) Regular astigmatism, bilateralPresbyop iaCrystalline deposits in vitreous body, left eye 4 Eladio Helm. [address] [place] [address], [id number], [place]. tel:[phone] Other Provider: Radha brito, [facility] [address] [place], [address]. tel:[phone] ring Provider: Brando Hernandez, [address] [place], [address]. tel:[phone] Family History Family Member Type Diagnosis Age At Onset Problem No family history of Catarac ts Problem No family history of Macular degeneration Problem No family history of Corneal disease Problem No family history of Blindne ss Problem No family history of Glaucom a Problem No family history of Strabis mus Problem No family history of Amblyop ia Problem No family history of Retinal disease Payers Payer name Insurance type Covered libertarian ID Authoriza tion(s) No Information Social History Type Description Quantity Date Captured Comments Alcohol Use Details Unknown Caffeine Use Details Unknown Tobacco Use Status Occasional cigarette smoker Smoking Status Current some day smoker Smoking Tobacco Use Details Cigarette: No Details Available Cigarette: No Details Available Sex Female Chief Complaint And Reason For Visit From encounter dated '06/03/2023 14:15'. Post-op cataract surgery (chief complaint). Description: The 62 year old patient presents for Post-op cataract surgery in the right eye (Basic IOL 05/18/23) and left eye (Basic IOL 05/11/23). Vision good and stable and constant D & N sc. Pt states OS isn't as clear as OD but she can still make things out at D. Pt is using old gls for reading. Patient denies: pain or discomfort. Pt using Prednisolone BID OU. Reason For Referral Reason For Referral No Information Plan Of Treatment Date Type Action Status Goal Tobacco cessation counseling completed History Of Present Illness Encounter Date Complaint History Of Prese nt Illness Post-op cataract surgery The 62 year old patient presents for Post- op cataract surgery in the right eye (Basic IOL 05/18/23) and left eye (Basic IOL 05/11/23). Vision good and stable and constant D & N sc. Pt states OS isn't as clear as OD but she can still make things out at D. Pt is using old gls for reading. Patient denies: pain or discomfort. Pt using Prednisolone BID OU. Post-op cataract surgery The 62 year old patient presents for a 1 day Post-op cataract surgery in the right eye.Pt reports that vision has improved since surgery. It affects both near and far vision. Patient denies: pain or discomfort.Pt is using Ketorolac, Ofloxacin and Prednisolone QID in OD and Prednisolone BID in OS Post-op cataract surgery The 62 year old patient presents for post- op cataract surgery OS. Pt states that OS VA has improved somewhat but still a little blurry. Pt states that OD VA remains the same. Patient denies pain or discomfort. cataract evaluation The 62 year old patient Referred by Radha Tavares O.D for a Cataract evaluation in the right eye and left eye.Pt has Hx of HYPEROPIA/ASTIGMATISM/PRESBYOPIA/FLOATERS Pt reports that vision is blurry OU. It started about 6 month(s) ago. It affects distance vision.Pt reports that she avoids driving at night due to glare from car headlights. Patient denies: pain or discomfort.Pt uses art tears PRN. 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
[2025-01-09] VITALS (7 sets, daily range): BP systolic 118–150; BP diastolic 66–79; PULSE 61–78; RESP 17–20; TEMP 36.5–36.9; O2SAT 98–100
--- OUTSIDE RECORDS SUMMARY | 2025-01-09 06:30 | XMS_ITS | Encounter Summary ---
Author Organization [facility] Address [address] [place] [address] Care Team Providers Care Contact Center Associate Name Role Phone Jina Banda MD Primary Care Provider Unav ailable Encounter Details Date Type Department Care Team (Late st Contact Info) Description 08/15/2002 Outpatient Historical [facility] Internal Medicine - [facility] [address] [address] [facility] [address] [place] [address] Jina Banda MD NO ADDRESS ON FILE Social History Tobacco Use Types Packs/Day Years Used Date Smoking Tobacco: Never Assessed Comments Unknown Sex and Gender Information Value Date Recorded Sex Assigned at Not on file 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 Gender Identity Not on file Sexual Orientation Not on file documented as of this encounter Plan of Treatment Upcoming Encounters Date Type Department Care Team (Late st Contact Info) Description 09/07/2025 9:15 AM CDT Office Visit [facility] Heart and Vascular At [address] [place] [address] Randal Cooley MD [address] [place] [address] [address] [place] [address] documented as of this encounter Visit Diagnoses Not on filedocumented in this encounter Additional Health Concerns Infection Onset Date Last Indicated Resolved Time R/O COVID-19 11/08/2019 11/08/2019 11/11/2019 12:3 1 AM CDT R/O COVID-19 02/01/2020 02/01/2020 02/03/2020 2:00 AM LOG LOADER HELPER documented as of this encounter Care Teams Contact Center Associate Relationship Specialty Start Date End Date Jina Banda MD PCP - General Internal Medicine 06/20/16 12/03/21 documented as of this encounter
--- OUTSIDE RECORDS SUMMARY | 2025-01-09 06:30 | XMS_ITS | Encounter Summary ---
Author Organization [facility] Address [address] [place] [address] Care Team Providers Care Rn Access Name Role Phone Jina Banda MD Primary Care Provider Unav ailable Encounter Details Date Type Department Care Team (Late st Contact Info) Description 02/26/2015 Nurse Triage Report [facility] Miladis Celestin, RN [address] [place] [address] Social History Tobacco Use Types Packs/Day Years Used Date Smoking Tobacco: Never Smokeless Tobacco: Never Alcohol Use Standard Drinks/Week Comments No 0 (1 standard drink = 0.6 oz pur e alcohol) Comments No Sex and Gender Information Value Date Recorded Sex Assigned at Not on file 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 <<<<<<<< TRIAGE/OUTCOME >>>>>>>> Guideline Title: Nausea or Vomiting Recommended Disposition: Provide Home/Self Care Original Inclination: Self Management Intended Action: Self Management Physician Contacted: No All other situations ? YES H HELPER documented in this encounter Plan of Treatment Upcoming Encounters Date Type Department Care Team (Late st Contact Info) Description 09/07/2025 9:15 AM CDT Office Visit [facility] Heart and Vascular At [address] [place] [address] Randal Cooley MD [address] [place] [address] [address] [place] [address] documented as of this encounter Visit Diagnoses Not on filedocumented in this encounter Additional Health Concerns Infection Onset Date Last Indicated Resolved Time R/O COVID-19 11/08/2019 11/08/2019 11/11/2019 12:3 1 AM CDT R/O COVID-19 02/01/2020 02/01/2020 02/03/2020 2:00 AM RANCH HELPER documented as of this encounter Care Teams Rn Access Relationship Specialty Start Date End Date Jina Banda MD PCP - General Internal Medicine 06/20/16 12/03/21 documented as of this encounter
--- OUTSIDE RECORDS SUMMARY | 2025-01-09 06:30 | XMS_ITS | Encounter Summary ---
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 Gender Identity Not on file Sexual Orientation Not on file documented as of this encounter Plan of Treatment Upcoming Encounters Date Type Department Care Team (Late st Contact Info) Description 09/07/2025 9:15 AM CDT Office Visit [facility] Heart and Vascular At [address] [place] [address] Randal Cooley MD [address] [place] [address] [address] [place] [address] documented as of this encounter Visit Diagnoses Not on filedocumented in this encounter Additional Health Concerns Infection Onset Date Last Indicated Resolved Time R/O COVID-19 11/08/2019 11/08/2019 11/11/2019 12:3 1 AM CDT R/O COVID-19 02/01/2020 02/01/2020 02/03/2020 2:00 AM DRILL PUNCH OPERATOR documented as of this encounter Care Teams Qc Analyst Relationship Specialty Start Date End Date Jina Banda MD PCP - General Internal Medicine 06/20/16 12/03/21 documented as of this encounter
--- OUTSIDE RECORDS SUMMARY | 2025-01-09 06:30 | XMS_ITS | Encounter Summary ---
Author Organization [facility] Address [address] [place] [address] Care Team Providers Care Marking Devices Assembler Name Role Phone Jina Banda MD Primary Care Provider Unav ailable Encounter Details Date Type Department Care Team (Late st Contact Info) Description 09/22/2000 Outpatient Historical [facility] Internal Medicine - [facility] [address] [address] [facility] [address] [place] [address] Jina Banda MD NO ADDRESS ON FILE Social History Tobacco Use Types Packs/Day Years Used Date Smoking Tobacco: Never Assessed Comments Unknown Sex and Gender Information Value Date Recorded Sex Assigned at Not on file Legal Sex Female 5:30 AM INBOUND SALES ADVISOR Gender Identity Not on file Sexual Orientation Not on file documented as of this encounter Plan of Treatment Upcoming Encounters Date Type Department Care Team (Late st Contact Info) Description 09/07/2025 9:15 AM CDT Office Visit [facility] Heart and Vascular At [address] [place] [address] Randal Cooley MD [address] [place] [address] [address] [place] [address] documented as of this encounter Visit Diagnoses Not on filedocumented in this encounter Additional Health Concerns Infection Onset Date Last Indicated Resolved Time R/O COVID-19 11/08/2019 11/08/2019 11/11/2019 12:3 1 AM CDT R/O COVID-19 02/01/2020 02/01/2020 02/03/2020 2:00 AM INBOUND SALES ADVISOR documented as of this encounter Care Teams Marking Devices Assembler Relationship Specialty Start Date End Date Jina Banda MD PCP - General Internal Medicine 06/20/16 12/03/21 documented as of this encounter
--- OUTSIDE RECORDS SUMMARY | 2025-01-09 06:30 | XMS_ITS | Encounter Summary ---
Author Organization [facility] Address [address] [place] [address] Care Team Providers Care Weaver Tire Cord Name Role Phone Jina Banda MD Primary Care Provider Unav ailable Encounter Details Date Type Department Care Team (Late st Contact Info) Description 07/07/2000 Emergency [facility] Denilson Brooks MD NO ADDRESS ON FILE Er, Authorized P NO ADDRESS ON FILE Other chest pain (Primary Dx) Social History Tobacco Use Types Packs/Day Years Used Date Smoking Tobacco: Never Assessed Comments Unknown Sex and Gender Information Value Date Recorded Sex Assigned at Not on file Legal Sex Female 5:30 AM SALES TRAINING MANAGER Gender Identity Not on file Sexual Orientation Not on file documented as of this encounter Plan of Treatment Upcoming Encounters Date Type Department Care Team (Late st Contact Info) Description 09/07/2025 9:15 AM CDT Office Visit [facility] Heart and Vascular At [address] [place] [address] Randal Cooley MD [address] [place] [address] [address] [place] [address] documented as of this encounter Visit Diagnoses Diagnosis Other chest pain- Primary documented in this encounter Additional Health Concerns Infection Onset Date Last Indicated Resolved Time R/O COVID-19 11/08/2019 11/08/2019 11/11/2019 12:3 1 AM CDT R/O COVID-19 02/01/2020 02/01/2020 02/03/2020 2:00 AM SALES TRAINING MANAGER documented as of this encounter Care Teams [employer] Cord Relationship Specialty Start Date End Date Jina Banda MD PCP - General Internal Medicine 06/20/16 12/03/21 documented as of this encounter
--- OUTSIDE RECORDS SUMMARY | 2025-01-09 06:30 | XMS_ITS | Encounter Summary ---
Author Organization [facility] Address [address] [place] [address] Phone Care Team Providers Care Materials Research Engineer Name Role Phone Mervin Jay DO Primary Care Provider Encounter Details Date Type Department Care Team (Late st Contact Info) Description 02/23/2019 Orders Only [facility] Scanning, Provider Social History Tobacco Use Types Packs/Day Years Used Date Smoking Tobacco: Never Assessed Comments Unknown Sex and Gender Information Value Date Recorded Sex Assigned at Not on file Legal Sex Female 6:45 PM ENTERPRISE APPLICATION ARCHITECT Gender Identity Not on file Sexual Orientation [...] on filedocumented in this encounter Care Teams Materials Research Engineer Relationship Specialty Start Date End Date Mervin Jay DO PCP - General Internal Medicine 10/21/21 documented as of this encounter
--- OUTSIDE RECORDS SUMMARY | 2025-01-09 06:30 | XMS_ITS | Encounter Summary ---
Author Organization [facility] Address [address] [facility] Attn: [place] [address] Care Team Providers Care Law Office Assistant Name Role Phone Jina Banda MD Primary Care Provider Unav ailable Encounter Details Date Type Department Care Team (Late st Contact Info) Description 04/08/1989 Outpatient Historical Sahil Tsang MD [address] [place] [address] Social History Tobacco Use Types Packs/Day Years Used Date Smoking Tobacco: Never Assessed Comments Unknown Sex and Gender Information Value Date Recorded Sex Assigned at Not on file Legal Sex Female 5:30 AM FINISHED CLOTH EXAMINER Gender Identity Not on file Sexual Orientation Not on file documented as of this encounter Plan of Treatment Upcoming Encounters Date Type Department Care Team (Late st Contact Info) Description 09/07/2025 9:15 AM CDT Office Visit [facility] Heart and Vascular At [address] [place] [address] Randal Cooley MD [address] [place] [address] [address] [place] [address] documented as of this encounter Visit Diagnoses Not on filedocumented in this encounter Additional Health Concerns Infection Onset Date Last Indicated Resolved Time R/O COVID-19 11/08/2019 11/08/2019 11/11/2019 12:3 1 AM CDT R/O COVID-19 02/01/2020 02/01/2020 02/03/2020 2:00 AM FINISHED CLOTH EXAMINER documented as of this encounter Care Teams Law Office Assistant Relationship Specialty Start Date End Date Jina Banda MD PCP - General Internal Medicine 06/20/16 12/03/21 documented as of this encounter
--- OUTSIDE RECORDS SUMMARY | 2025-01-09 06:30 | XMS_ITS | Encounter Summary ---
Author Organization [facility] Address [address] [place] [address] Care Team Providers Care Web Support Engineer Name Role Phone Jina Banda MD Primary Care Provider Unav ailable Encounter Details Date Type Department Care Team (Late st Contact Info) Description 06/06/1998 Outpatient Historical [facility] Internal Medicine - [facility] [address] [address] [facility] [address] [place] [address] Jina Banda MD NO ADDRESS ON FILE Social History Tobacco Use Types Packs/Day Years Used Date Smoking Tobacco: Never Assessed Comments Unknown Sex and Gender Information Value Date Recorded Sex Assigned at Not on file Legal Sex Female 5:30 AM BRAIDING MACHINE TENDER Gender Identity Not on file Sexual Orientation Not on file documented as of this encounter Plan of Treatment Upcoming Encounters Date Type Department Care Team (Late st Contact Info) Description 09/07/2025 9:15 AM CDT Office Visit [facility] Heart and Vascular At [address] [place] [address] Randal Cooley MD [address] [place] [address] [address] [place] [address] documented as of this encounter Visit Diagnoses Not on filedocumented in this encounter Additional Health Concerns Infection Onset Date Last Indicated Resolved Time R/O COVID-19 11/08/2019 11/08/2019 11/11/2019 12:3 1 AM CDT R/O COVID-19 02/01/2020 02/01/2020 02/03/2020 2:00 AM BRAIDING MACHINE TENDER documented as of this encounter Care Teams Web Support Engineer Relationship Specialty Start Date End Date Jina Banda MD PCP - General Internal Medicine 06/20/16 12/03/21 documented as of this encounter
--- OUTSIDE RECORDS SUMMARY | 2025-01-09 06:30 | XMS_ITS | Encounter Summary ---
Author Organization [facility] Address [address] [place] [address] Care Team Providers Care Commodity Merchant Name Role Phone Jina Banda MD Primary Care Provider Unav ailable Encounter Details Date Type Department Care Team (Late st Contact Info) Description 02/12/2000 Outpatient Historical [facility] Internal Medicine - [facility] [address] [address] [facility] [address] [place] [address] Jina Banda MD NO ADDRESS ON FILE Social History Tobacco Use Types Packs/Day Years Used Date Smoking Tobacco: Never Assessed Comments Unknown Sex and Gender Information Value Date Recorded Sex Assigned at Not on file Legal Sex Female 5:30 AM TUBE MOLDER FIBERGLASS Gender Identity Not on file Sexual Orientation Not on file documented as of this encounter Plan of Treatment Upcoming Encounters Date Type Department Care Team (Late st Contact Info) Description 09/07/2025 9:15 AM CDT Office Visit [facility] Heart and Vascular At [address] [place] [address] Randal Cooley MD [address] [place] [address] [address] [place] [address] documented as of this encounter Visit Diagnoses Not on filedocumented in this encounter Additional Health Concerns Infection Onset Date Last Indicated Resolved Time R/O COVID-19 11/08/2019 11/08/2019 11/11/2019 12:3 1 AM CDT R/O COVID-19 02/01/2020 02/01/2020 02/03/2020 2:00 AM TUBE MOLDER FIBERGLASS documented as of this encounter Care Teams Commodity Merchant Relationship Specialty Start Date End Date Jina Banda MD PCP - General Internal Medicine 06/20/16 12/03/21 documented as of this encounter
--- OUTSIDE RECORDS SUMMARY | 2025-01-09 06:30 | XMS_ITS | Encounter Summary ---
Author Organization [facility] Address [address] [place] [address] Care Team Providers Care Senior Portfolio Analyst Name Role Phone Jina Banda MD Primary Care Provider Unav ailable Encounter Details Date Type Department Care Team (Late st Contact Info) Description 10/07/2000 Outpatient Historical [facility] Internal Medicine - [facility] [address] [address] [facility] [address] [place] [address] Jina Banda MD NO ADDRESS ON FILE Social History Tobacco Use Types Packs/Day Years Used Date Smoking Tobacco: Never Assessed Comments Unknown Sex and Gender Information Value Date Recorded Sex Assigned at Not on file Legal Sex Female 5:30 AM GENERAL SERVICE TECHNICIAN Gender Identity Not on file Sexual Orientation Not on file documented as of this encounter Plan of Treatment Upcoming Encounters Date Type Department Care Team (Late st Contact Info) Description 09/07/2025 9:15 AM CDT Office Visit [facility] Heart and Vascular At [address] [place] [address] Randal Cooley MD [address] [place] [address] [address] [place] [address] documented as of this encounter Visit Diagnoses Not on filedocumented in this encounter Additional Health Concerns Infection Onset Date Last Indicated Resolved Time R/O COVID-19 11/08/2019 11/08/2019 11/11/2019 12:3 1 AM CDT R/O COVID-19 02/01/2020 02/01/2020 02/03/2020 2:00 AM GENERAL SERVICE TECHNICIAN documented as of this encounter Care Teams Senior Portfolio Analyst Relationship Specialty Start Date End Date Jina Banda MD PCP - General Internal Medicine 06/20/16 12/03/21 documented as of this encounter
--- OUTSIDE RECORDS SUMMARY | 2025-01-09 06:30 | XMS_ITS | Encounter Summary ---
Author Organization [facility] Address [address] [place] [address] Care Team Providers Care Bow Tacker Name Role Phone Jina Banda MD Primary Care Provider Unav ailable Encounter Details Date Type Department Care Team (Latest Contact Info) Description 11/07/1999 Outpatient Historical [facility] Chato Aguilera MD [address] [place] [phone] Other screening mammogram (Primary Dx) Social History Tobacco Use Types Packs/Day Years Used Date Smoking Tobacco: Never Assessed Comments Unknown Sex and Gender Information Value Date Recorded Sex Assigned at Not on file Legal Sex Female 5:30 AM VOUCHER CLERK Gender Identity Not on file Sexual Orientation Not on file documented as of this encounter Plan of Treatment Upcoming Encounters Date Type Department Care Team (Late st Contact Info) Description 09/07/2025 9:15 AM CDT Office Visit [facility] Heart and Vascular At [address] [place] [phone] Randal Cooley MD [address] [place] [address] 2014 [place], [place] [id number] documented as of this encounter Visit Diagnoses Diagnosis Other screening mammogram- Primary documented in this encounter Additional Health Concerns Infection Onset Date Last Indicated Resolved Time R/O COVID-19 11/08/2019 11/08/2019 11/11/2019 12:3 1 AM CDT R/O COVID-19 02/01/2020 02/01/2020 02/03/2020 2:00 AM VOUCHER CLERK documented as of this encounter Care Teams Bow Tacker Relationship Specialty Start Date End Date Jina Banda MD PCP - General Internal Medicine 06/20/16 12/03/21 documented as of this encounter
--- OUTSIDE RECORDS SUMMARY | 2025-01-09 06:30 | XMS_ITS | Encounter Summary ---
Author Organization [facility] [place] [facility] Address [address] [place] [address] Phone Care Team Providers Care Brand Sales Manager Name Role Phone Mervin Jay DO Primary Care Provider Encounter Details Date Type Department Care Team (Late st Contact Info) Description 09/22/2018 Orders Only [facility] Scanning, Provider Social History Tobacco Use Types Packs/Day Years Used Date Smoking Tobacco: Never Assessed Comments Unknown Sex and Gender Information Value Date Recorded Sex Assigned at Not on file Legal Sex Female 6:45 PM STUDIO CONTROL OPERATOR Gender Identity Not on file Sexual [...] on filedocumented in this encounter Care Teams Brand Sales Manager Relationship Specialty Start Date End Date Mervin Jay DO PCP - General Internal Medicine 10/21/21 documented as of this encounter
--- OUTSIDE RECORDS SUMMARY | 2025-01-09 06:30 | XMS_ITS | Encounter Summary ---
Author Organization [facility] Address [address] [place] [address] Care Team Providers Care Customer Leader Name Role Phone Jina Banda MD Primary Care Provider Unav ailable Encounter Details Date Type Department Care Team (Latest Contact Info) Description 10/23/2000 Outpatient Historical [facility] Chato Aguilera MD [address] [place] [phone] Other screening mammogram (Primary Dx) Social History Tobacco Use Types Packs/Day Years Used Date Smoking Tobacco: Never Assessed Comments Unknown Sex and Gender Information Value Date Recorded Sex Assigned at Not on file Legal Sex Female 5:30 AM DRESS OPERATOR Gender Identity Not on file Sexual Orientation Not on file documented as of this encounter Plan of Treatment Upcoming Encounters Date Type Department Care Team (Late st Contact Info) Description 09/07/2025 9:15 AM CDT Office Visit [facility] Heart and Vascular At [address] [place] [phone] Randal Cooley MD [address] [place] [address] 2014 [place], [place] [id number] documented as of this encounter Visit Diagnoses Diagnosis Other screening mammogram- Primary documented in this encounter Additional Health Concerns Infection Onset Date Last Indicated Resolved Time R/O COVID-19 11/08/2019 11/08/2019 11/11/2019 12:3 1 AM CDT R/O COVID-19 02/01/2020 02/01/2020 02/03/2020 2:00 AM DRESS OPERATOR documented as of this encounter Care Teams Customer Leader Relationship Specialty Start Date End Date Jina Banda MD PCP - General Internal Medicine 06/20/16 12/03/21 documented as of this encounter
--- OUTSIDE RECORDS SUMMARY | 2025-01-09 06:30 | XMS_ITS | Clinical Summary ---
Author Organization [facility] [employer] Address [address] [place] [address] Care Team Providers Care Tibco Developer Name Role Phone Mervin Jay DO Primary Care Provider Source Comments [facility] [employer],non-owned Affiliates and Associated Physician Practices is amultiple site organization consisting of ambulatory clinics and hospital sitesin [place], [place], [place] and [place]. This disclosure is being madepursuant to the Care Everywhere program and may not contain all information available regarding this patient. Last updated 17.[facility] [employer] Allergies Active Allergy Reactions Criticality Noted Date [...] MCG/ACT nasal sprayIndications :Acute pharyngitis, unspecified etiology Liberty 2 sprays into each nostril once daily [...] on file Legal Sex Female 6:26 AM ELECTION ASSISTANT Gender Identity Not on file Sexual [...] - COLON CA SCREENING 1958 MAMMOGRAM 1958 HEPATITIS C SCREENING 12/20/1976 DTAP/TDAP/TD VACCINES (1 - Tdap) 1977 PNEUMOCOCCAL VACCINE 50+ (1 of 1 - PCV) 2008 ZOSTER VACCINE (1 of 2) 2008 SCREENING FOR DIABETES 09/11/2018 DEPRESSION SCREENING 03/16/2024 COVID-19 VACCINE ( - season) 2024 INFLUENZA VACCINE (#1) 2024 8, 01/26/2017, 01/21/2016, Additional history exists Respiratory Syncytial [...] to complete this topic Insurance AN[facility] MEDICARE [facility] Care Teams Tibco Developer Relationship Specialty Start Date End Date Mervin Jay DO PCP - General 09/26/20
--- OUTSIDE RECORDS SUMMARY | 2025-01-09 06:30 | XMS_ITS | Encounter Summary ---
Author Organization [facility] Address [address] [place] [address] Care Team Providers Care Photo Journalist Name Role Phone Jina Banda MD Primary Care Provider Unav ailable Encounter Details Date Type Department Care Team (Late Contact Info) Description 10/30/2000 Outpatient Historical Division of Neurology [address] [place] [address], [address] [place], [place] [phone] Crow Coburn MD [address] [place] [address] [place] [phone] Social History Tobacco Use Types Packs/Day Years Used Date Smoking Tobacco: Never Assessed Comments Unknown Sex and Gender Information Value Date Recorded Sex Assigned at Not on file Legal Sex Female 5:30 AM SENIOR JAVASCRIPT ENGINEER Gender Identity Not on file Sexual Orientation Not on file documented as of this encounter Plan of Treatment Upcoming Encounters Date Type Department Care Team (Late Contact Info) Description 09/07/2025 9:15 AM CDT Office Visit [facility] Heart and Vascular At [address] [place] [phone] Randal Cooley MD [address] [place] [address] [address] [place] [address] documented as of this encounter Visit Diagnoses Not on filedocumented in this encounter Additional Health Concerns Infection Onset Date Last Indicated Resolved Time R/O COVID-19 11/08/2019 11/08/2019 11/11/2019 12:3 1 AM CDT R/O COVID-19 02/01/2020 02/01/2020 02/03/2020 2:00 AM SENIOR JAVASCRIPT ENGINEER documented as of this encounter Care Teams Photo Journalist Relationship Specialty Start Date End Date Jina Banda MD PCP - General Internal Medicine 06/20/16 12/03/21 documented as of this encounter
--- OUTSIDE RECORDS SUMMARY | 2025-01-09 06:30 | XMS_ITS | Encounter Summary ---
Author Organization [facility] Address [address] [place] [address] Care Team Providers Care Credit Associate Name Role Phone Jina Banda MD Primary Care Provider Unav ailable Encounter Details Date Type Department Care Team (Late st Contact Info) Description 03/14/2015 Chart Note [facility] [id number] [place] [phone] Briseida Solano, Physical Therapist Social History Tobacco Use Types Packs/Day Years Used Date Smoking Tobacco: Never Smokeless Tobacco: Never Alcohol Use Standard Drinks/Week Comments No 0 (1 standard drink = 0.6 oz pur e alcohol) Comments No Sex and Gender Information Value Date Recorded Sex Assigned at Not on file Legal Sex Female 5:30 AM WOOD FURNITURE ASSEMBLER Gender Identity Not on file Sexual [...] in order to assist with completion of service line coordinator. met 2. Patient to be able to [...] this referral. Briseida Solano, PT, DPT, OCS [place] License No.: [id number] [facility] Services [address] [place] [address] (phone) [phone] (fax) FURNITURE ASSEMBLER documented in this encounter Plan of Treatment Upcoming Encounters Date Type Department Care Team (Late st Contact Info) Description 09/07/2025 9:15 AM CDT Office Visit [facility] Heart and Vascular At [address] [place] [address] Randal Cooley MD [address] [place] [address] 2014 [place] [address] documented as of this encounter Visit Diagnoses Not on filedocumented in this encounter Additional Health Concerns Infection Onset Date Last Indicated Resolved Time R/O COVID-19 11/08/2019 11/08/2019 11/11/2019 12:3 1 AM CDT R/O COVID-19 02/01/2020 02/01/2020 02/03/2020 2:00 AM WOOD FURNITURE ASSEMBLER documented as of this encounter Care Teams Credit Associate Relationship Specialty Start Date End Date Jina Banda MD PCP - General Internal Medicine 06/20/16 12/03/21 documented as of this encounter
--- OUTSIDE RECORDS SUMMARY | 2025-01-09 06:30 | XMS_ITS | Encounter Summary ---
Author Organization [facility] [place] [facility] Address [address] [place] [address] Phone Care Team Providers Care System Dispatcher Name Role Phone Mervin Jay DO Primary Care Provider Encounter Details Date Type Department Care Team (Late st Contact Info) Description 10/17/2019 Orders Only [facility] Scanning, Provider Social History Tobacco Use Types Packs/Day Years Used Date Smoking Tobacco: Never Assessed Comments Unknown Sex and Gender Information Value Date Recorded Sex Assigned at Not on file Legal Sex Female 6:45 PM SPECIMEN PROCESSOR Gender Identity Not on file Sexual Orientation [...] on filedocumented in this encounter Care Teams System Dispatcher Relationship Specialty Start Date End Date Mervin Jay DO PCP - General Internal Medicine 10/21/21 documented as of this encounter
--- OUTSIDE RECORDS SUMMARY | 2025-01-09 06:30 | XMS_ITS | Encounter Summary ---
Author Organization [facility] Address [address] [facility] [place] [address] Care Team Providers Care Telephone Station Installer Name Role Phone Mervin Jay DO Primary Care Provider Encounter Details Date Type Department Care Team (Late st Contact Info) Description 09/26/2020 Lab Requisition [facility] [address] [place] [phone] Jakob Marr MD [address] [place] [address] Social History Tobacco Use Types Packs/Day Years Used Date Smoking Tobacco: Never Smokeless Tobacco: Never Alcohol Use Standard Drinks/Week Comments No 0 (1 standard drink = 0.6 oz pur e alcohol) Comments No Sex and Gender Information Value Date Recorded Sex Assigned at Not on file Legal Sex Female 6:26 AM SALESPERSON [place] [employer] Gender Identity Not on file Sexual Orientation Not on file documented as of this encounter Plan of Treatment Not on file documented as of this encounter Procedures Procedure Name Priority Date/Time Associated Diagnosis Comments DERMATOPATHOLOGY Routine 09/25/2020 12:0 0 AM CDT documented in this encounter Results * DERMATOPATHOLOGY (09/25/2020 12:00 AM CDT) Case Report Dermatopathology Report Case: [id number] Authorizing Provider: Jakob Marr MD Collected: 09/25/2020 [...] characteristic determined by the Dermatopathology Laboratory at [facility], directed by Dr. Bruce Varghese. These tests need not be, and therefore are not, approved by the [place] Food and Drug Administration. The tests are used for clinical purposes. Billing Codes Specimen Charges Stain Charges 06907 1 1 1:17 PM CDT DERMATOPATHOLOGY LABORATORY Embedded Images 1:17 PM CDT DERMATOPATHOLOGY LABORATORY Pathology/Cytolog y TISSUE SPECIMEN FROM SKIN / Unknown 09/25/2020 09/26/2020 1:47 PM CDT Jakob Marr MD LAB - PATHOLOGY/CYTOLOGY ORDERA BLES Final Result DERMATOPATHOLOGY LABORATORY [facility] - Department of Dermatology [facility] Medicine [address] [place] [address], [address] [phone] documented in this encounter Visit Diagnoses Not on filedocumented in this encounter Care Teams Telephone Station Installer Relationship Specialty Start Date End Date Mervin Jay DO PCP - General 09/26/20 documented as of this encounter
--- OUTSIDE RECORDS SUMMARY | 2025-01-09 06:30 | XMS_ITS | Encounter Summary ---
Author Organization [facility] Address [address] [place] [address] Care Team Providers Care Virtual Assistant For Advertisers Name Role Phone Jina Banda MD Primary Care Provider Unav ailable Encounter Details Date Type Department Care Team (Late st Contact Info) Description 10/06/2002 Outpatient Historical [facility] Internal Medicine - [facility] [address] [address] [facility] [address] [place] [address] Jina Banda MD NO ADDRESS ON FILE Social History Tobacco Use Types Packs/Day Years Used Date Smoking Tobacco: Never Assessed Comments Unknown Sex and Gender Information Value Date Recorded Sex Assigned at Not on file Legal Sex Female 5:30 AM SOFTWARE DEVELOPMENT ADVISOR Gender Identity Not on file Sexual Orientation Not on file documented as of this encounter Plan of Treatment Upcoming Encounters Date Type Department Care Team (Late st Contact Info) Description 09/07/2025 9:15 AM CDT Office Visit [facility] Heart and Vascular At [address] [place] [address] Randal Cooley MD [address] [place] [address] [address] [place] [address] documented as of this encounter Visit Diagnoses Not on filedocumented in this encounter Additional Health Concerns Infection Onset Date Last Indicated Resolved Time R/O COVID-19 11/08/2019 11/08/2019 11/11/2019 12:3 1 AM CDT R/O COVID-19 02/01/2020 02/01/2020 02/03/2020 2:00 AM SOFTWARE DEVELOPMENT ADVISOR documented as of this encounter Care Teams Virtual Assistant For Advertisers Relationship Specialty Start Date End Date Jina Banda MD PCP - General Internal Medicine 06/20/16 12/03/21 documented as of this encounter
--- OUTSIDE RECORDS SUMMARY | 2025-01-09 06:30 | XMS_ITS | Encounter Summary ---
Author Organization [facility] Address [address] [place] [address] Care Team Providers Care Cullet Crusher Name Role Phone Jina Banda MD Primary Care Provider Unav ailable Encounter Details Date Type Department Care Team (Late st Contact Info) Description 09/05/1998 Outpatient Historical [facility] Internal Medicine - [facility] [address] [address] [facility] [address] [place] [address] Jina Banda MD NO ADDRESS ON FILE Social History Tobacco Use Types Packs/Day Years Used Date Smoking Tobacco: Never Assessed Comments Unknown Sex and Gender Information Value Date Recorded Sex Assigned at Not on file Legal Sex Female 5:30 AM MONEY ROOM TELLER Gender Identity Not on file Sexual Orientation Not on file documented as of this encounter Plan of Treatment Upcoming Encounters Date Type Department Care Team (Late st Contact Info) Description 09/07/2025 9:15 AM CDT Office Visit [facility] Heart and Vascular At [address] [place] [address] Randal Cooley MD [address] [place] [address] 2014 [place] [address] documented as of this encounter Visit Diagnoses Not on filedocumented in this encounter Additional Health Concerns Infection Onset Date Last Indicated Resolved Time R/O COVID-19 11/08/2019 11/08/2019 11/11/2019 12:3 1 AM CDT R/O COVID-19 02/01/2020 02/01/2020 02/03/2020 2:00 AM MONEY ROOM TELLER documented as of this encounter Care Teams Cullet Crusher Relationship Specialty Start Date End Date Jina Banda MD PCP - General Internal Medicine 06/20/16 12/03/21 documented as of this encounter
--- OUTSIDE RECORDS SUMMARY | 2025-01-09 06:30 | XMS_ITS | Encounter Summary ---
Author Organization [facility] Address [address] [place] [address] Care Team Providers Care Electronic Gaming Device Supervisor Name Role Phone Jina Banda MD Primary Care Provider Unav ailable Encounter Details Date Type Department Care Team (Late st Contact Info) Description 04/25/2004 Outpatient Historical [facility] Internal Medicine - [facility] [address] [id number] [facility] [address] [place] [address] Jina Banda MD NO ADDRESS ON FILE Social History Tobacco Use Types Packs/Day Years Used Date Smoking Tobacco: Never Assessed Comments Unknown Sex and Gender Information Value Date Recorded Sex Assigned at Not on file Legal Sex Female 5:30 AM ADJUNCT MATHEMATICS INSTRUCTOR Gender Identity Not on file Sexual Orientation Not on file documented as of this encounter Plan of Treatment Upcoming Encounters Date Type Department Care Team (Late st Contact Info) Description 09/07/2025 9:15 AM CDT Office Visit [facility] Heart and Vascular At [address] [place] [address] Randal Cooley MD [address] [place] [address] [address] [place] [address] documented as of this encounter Visit Diagnoses Not on filedocumented in this encounter Additional Health Concerns Infection Onset Date Last Indicated Resolved Time R/O COVID-19 11/08/2019 11/08/2019 11/11/2019 12:3 1 AM CDT R/O COVID-19 02/01/2020 02/01/2020 02/03/2020 2:00 AM ADJUNCT MATHEMATICS INSTRUCTOR documented as of this encounter Care Teams Electronic Gaming Device Supervisor Relationship Specialty Start Date End Date Jina Banda MD PCP - General Internal Medicine 06/20/16 12/03/21 documented as of this encounter
--- OUTSIDE RECORDS SUMMARY | 2025-01-09 06:30 | XMS_ITS | Clinical Summary ---
Author Organization [facility] Address Count includes the [facility] [place] [address] Care Team Providers Care Tugboat Pilot Name Role Phone MistyMervin Evens Primary Care Provider Allergies Active Allergy Reactions Criticality Noted Date [...] Sulfa (Sulfonamide Antibiotics) Urticaria,Unknown Medium 09/11/2018 Medications atorvastatin (LIPITOR) 40 mg tablet Take 1 tablet (40 mg total) by mouth daily 2 Active metoprolol tartrate (LOPRESSOR) 25 mg immediate release tablet Take 0.5 tablets (12.5 mg total) by mouth 2 (two) times a day 2 Active ALPRAZolam (XANAX) 0.25 mg tablet Take by mouth nightly as needed 1 Active levothyroxine (SYNTHROID) 88 mcg tablet Take 1 tablet (88 mcg total) by mouth daily 2 Active cholecalciferol (VITAMIN D-3) 1,000 unit capsule [...] (5 mg total) by mouth daily Active nitrofurantoin monohydrate (MACROBID) 100 mg capsule as needed 4 Active ondansetron ODT (ZOFRAN-ODT) 4 mg disintegrating tablet DISSOLVE 1 TABLET IN MOUTH EVERY 6 HOURS NEEDED FOR NAUSEA AND VOMITING 4 Active Klor-Con M20 20 mEq CR tablet Take 1 tablet (20 mEq total) by mouth as needed 4 Active Saccharomyces boulardii (FLORASTOR) 250 mg capsule Take 1 capsule (250 mg total) by mouth 2 (two) times a day 4 Active venlafaxine XR (EFFEXOR-XR) 75 mg 24 hr capsule Take 1 capsule (75 mg total) by mouth daily Active lisinopriL (PRINIVIL,ZESTRIL) 40 mg tablet Take 1 tablet (40 mg total) by mouth daily 4 Active meclizine (ANTIVERT) 25 mg tablet TAKE 1 TABLET BY MOUTH TWICE DAILY NEEDED FOR DIZZINESS FOR 7 DAYS 5 Active diphenoxylate-atro pine (LOMOTIL) 2.5-0.025 mg per tablet Take 2 tablets by mouth twice daily 120 tablet 5 Active Active Problems Problem Noted Date Diagnosed Date Lymphocytic colitis 05/04/2022 Chronic diarrhea 01/06/2022 Overview (01/06/2022): Added automatically from request for surgery [id number] Surgical History Surgery Date Site/Laterality Comments UPPER [...] on file Legal Sex Female 6:45 PM BURLAP ROLL COVERER Gender Identity Not on file Sexual Orientation Not on file Obstetrics History Last Filed Vital Signs Vital Sign Reading Time Taken Comments Blood Pressure 130/83 09/05/2024 1:05 PM CDT Pulse 71 09/05/2024 1:05 PM CDT Temperature 36.9 C (98.5 F) 09/05/2024 1:05 PM CDT Respiratory Rate 15 01/23/2022 11:05 AM BURLAP ROLL COVERER Oxygen Saturation 96% 09/05/2024 1:05 PM CDT Inhaled Oxygen Concentration - - Weight 68 kg (150 lb) 09/05/2024 1:05 PM CDT Height 154.9 cm (5' 1) 09/05/2024 1:05 PM CDT Body Mass Index 28.34 09/05/2024 1:05 PM CDT Plan of Treatment Health Maintenance Due Date Last Done Comments Depression Screening 1960 Hepatitis C Screening 1960 Osteoporosis Screening-Bone Density Scan 1960 Hepatitis B Screening 1976 Zoster Vaccine (1 of 2) 1977 Fall Risk Assessment 01/23/2023 01/23/2022 Well Visit 65+ 12/26/2023 Covid-19 Vaccine (3 - 2024-2 6 season) 2024 02/27/2021, 07/23/2020 Influenza Vaccine (#1) 2024 , 01/10/2022, 01/23/2021, Additional history exists Breast Cancer Screening-Mammogram 11/10/2025 11/10/2024, 11/10/2024, 03/04/2019, Additional history exists Colon Cancer Screening-Colonoscopy 01/24/20322021 DTaP/Tdap/Td Vaccine (3 - Td or Tdap) 04/19/2034 04/19/2024, 03/25/2013, 02/25/2006, Additional history exists Pneumococcal vaccine 65+ Completed 025, 10/17/2019, 10/17/2019, Additional history exists Procedures Procedure Name Priority Date/Time Associated Diagnosis Comments COLONOSCOPY 01/23/2022 10:27 AM BURLAP ROLL COVERER from Last 3 Months or Most Recently Relevant to Health Maintenance Results * COLONOSCOPY (01/23/2022 10:27 AM BURLAP ROLL COVERER) Anatomical Region Laterality Modality Other Narrative Procedure Note Ez Agarwal MD - 01/23/2022 10:27 AM [facility] Patient Name: Ely Wei Procedure Date: 01/23/2022 10:27AM Date of : 1960 Admit Type: Outpatient Age: 61 Gender: Female Attending MD: Ez Agarwal M.D. Room: [facility] ENDOSCOPY ROOM 8 Note Status: Finalized [...] The scope was passed under direct vision.The [id number] endoscope was introduced through the anus and [...] On: 01/23/2022 10:27 AM Recognized by the [employer] for promoting quality in endoscopy us Ez Agarwal MD ENDOSCOPY PROCEDURES F inal Result from Last 3 Months or Most Recently Relevant to Health [place] [address] MEDICARE [facility] MEDICARE SUPPLEMENT MEDICARE [facility] MEDICARE SUPPLEMENT Advance Directives For more information, please contact: [phone] * Full Code (Latest Code Status on File) Date Activated Date Inactivated Comments 01/23/2022 9:55 AM 01/23/2022 3:41 PM Care Teams Tugboat Pilot Relationship Specialty Start Date End Date Mervin Jay DO PCP - General Internal Medicine 10/21/21
--- OUTSIDE RECORDS SUMMARY | 2025-01-09 06:30 | XMS_ITS | Encounter Summary ---
Author Organization [facility] Address [address] [place] [address] Care Team Providers Care District Commercial Superintendent Name Role Phone Jina Banda MD Primary Care Provider Unav ailable Encounter Details Date Type Department Care Team (Late st Contact Info) Description 09/21/2000 Emergency [facility] Donita Damon MD NO ADDRESS ON FILE Er, Authorized P NO ADDRESS ON FILE Heat exhaustion, unspecified (Primary Dx) Social History Tobacco Use Types Packs/Day Years Used Date Smoking Tobacco: Never Assessed Comments Unknown Sex and Gender Information Value Date Recorded Sex Assigned at Not on file Legal Sex Female 5:30 AM CAR HIKER Gender Identity Not on file Sexual Orientation Not on file documented as of this encounter Plan of Treatment Upcoming Encounters Date Type Department Care Team (Late st Contact Info) Description 09/07/2025 9:15 AM CDT Office Visit [facility] Heart and Vascular At [address] [place] [address] Randal Cooley MD [address] [place] [address] [address] [place] [address] documented as of this encounter Visit Diagnoses Diagnosis Heat exhaustion, unspecified- Primary documented in this encounter Additional Health Concerns Infection Onset Date Last Indicated Resolved Time R/O COVID-19 11/08/2019 11/08/2019 11/11/2019 12:3 1 AM CDT R/O COVID-19 02/01/2020 02/01/2020 02/03/2020 2:00 AM CAR HIKER documented as of this encounter Care Teams District Commercial Superintendent Relationship Specialty Start Date End Date Jina Banda MD PCP - General Internal Medicine 06/20/16 12/03/21 documented as of this encounter
--- OUTSIDE RECORDS SUMMARY | 2025-01-09 06:30 | XMS_ITS | Encounter Summary ---
Author Organization [facility] Address [address] [place] [address] Care Team Providers Care Shot Hole Driller Name Role Phone Jina Banda MD Primary Care Provider Unav ailable Encounter Details Date Type Department Care Team (Latest Contact Info) Description 10/25/1998 Outpatient Historical [facility] Chato Aguilera MD [address] [place] [address] Other screening mammogram (Primary Dx) Social History Tobacco Use Types Packs/Day Years Used Date Smoking Tobacco: Never Assessed Comments Unknown Sex and Gender Information Value Date Recorded Sex Assigned at Not on file Legal Sex Female 5:30 AM WET INSPECTOR OPTICAL GLASS Gender Identity Not on file Sexual Orientation Not on file documented as of this encounter Plan of Treatment Upcoming Encounters Date Type Department Care Team (Late st Contact Info) Description 09/07/2025 9:15 AM CDT Office Visit [facility] Heart and Vascular At [address] [place] [address] Randal Cooley MD [address] [place] [address] [address] [place], [place] [id number] documented as of this encounter Visit Diagnoses Diagnosis Other screening mammogram- Primary documented in this encounter Additional Health Concerns Infection Onset Date Last Indicated Resolved Time R/O COVID-19 11/08/2019 11/08/2019 11/11/2019 12:3 1 AM CDT R/O COVID-19 02/01/2020 02/01/2020 02/03/2020 2:00 AM WET INSPECTOR OPTICAL GLASS documented as of this encounter Care Teams Shot Hole Driller Relationship Specialty Start Date End Date Jina Banda MD PCP - General Internal Medicine 06/20/16 12/03/21 documented as of this encounter
--- OUTSIDE RECORDS SUMMARY | 2025-01-09 06:30 | XMS_ITS | Encounter Summary ---
Author Organization [facility] Address [address] [place] [address] Care Team Providers Care Blocker And Polisher Gold Wheel Name Role Phone Jina Banda MD Primary Care Provider Unav ailable Encounter Details Date Type Department Care Team (Late st Contact Info) Description 05/15/[address] [facility] Internal Medicine - [facility] [address] [address] [facility] [address] [place] [address] Jina Banda MD NO ADDRESS ON FILE Social History Tobacco Use Types Packs/Day Years Used Date Smoking Tobacco: Never Assessed Comments Unknown Sex and Gender Information Value Date Recorded Sex Assigned at Not on file Legal Sex Female 5:30 AM DEVELOPMENT AND PLANNING ENGINEER Gender Identity Not on file Sexual Orientation Not on file documented as of this encounter Plan of Treatment Upcoming Encounters Date Type Department Care Team (Late st Contact Info) Description 09/07/2025 9:15 AM CDT Office Visit [facility] Heart and Vascular At [address] [place] [address] Randal Cooley MD [address] [place] [address] [address] [place] [address] documented as of this encounter Visit Diagnoses Not on filedocumented in this encounter Additional Health Concerns Infection Onset Date Last Indicated Resolved Time R/O COVID-19 11/08/2019 11/08/2019 11/11/2019 12:3 1 AM CDT R/O COVID-19 02/01/2020 02/01/2020 02/03/2020 2:00 AM DEVELOPMENT AND PLANNING ENGINEER documented as of this encounter Care Teams Blocker And Polisher Gold Wheel Relationship Specialty Start Date End Date Jina Banda MD PCP - General Internal Medicine 06/20/16 12/03/21 documented as of this encounter
--- OUTSIDE RECORDS SUMMARY | 2025-01-09 06:30 | XMS_ITS | Encounter Summary ---
Author Organization [facility] Address [address] [place] [address] Care Team Providers Care Architecture Department Chair Name Role Phone Jina Banda MD Primary Care Provider Unav ailable Encounter Details Date Type Department Care Team (Late st Contact Info) Description 10/05/2000 Outpatient Historical [facility] Internal Medicine - [facility] [address] [address] [facility] [address] [place] [address] Jina Banda MD NO ADDRESS ON FILE Social History Tobacco Use Types Packs/Day Years Used Date Smoking Tobacco: Never Assessed Comments Unknown Sex and Gender Information Value Date Recorded Sex Assigned at Not on file Legal Sex Female 5:30 AM AQUARIST Gender Identity Not on file Sexual Orientation Not on file documented as of this encounter Plan of Treatment Upcoming Encounters Date Type Department Care Team (Late st Contact Info) Description 09/07/2025 9:15 AM CDT Office Visit [facility] Heart and Vascular At [address] [place] [address] Randal Cooley MD [address] [place] [address] [address] [place] [address] documented as of this encounter Visit Diagnoses Not on filedocumented in this encounter Additional Health Concerns Infection Onset Date Last Indicated Resolved Time R/O COVID-19 11/08/2019 11/08/2019 11/11/2019 12:3 1 AM CDT R/O COVID-19 02/01/2020 02/01/2020 02/03/2020 2:00 AM AQUARIST documented as of this encounter Care Teams Architecture Department Chair Relationship Specialty Start Date End Date Jina Banda MD PCP - General Internal Medicine 06/20/16 12/03/21 documented as of this encounter
--- OUTSIDE RECORDS SUMMARY | 2025-01-09 06:30 | XMS_ITS | Encounter Summary ---
Author Organization [facility] Address [address] [place] [address] Care Team Providers Care Chicken Raiser Name Role Phone Jina Banda MD Primary Care Provider Unav ailable Encounter Details Date Type Department Care Team (Late st Contact Info) Description 01/11/2001 Outpatient Historical [facility] Internal Medicine - [facility] [address] [address] [facility] [address] [place] [address] Jina Banda MD NO ADDRESS ON FILE Social History Tobacco Use Types Packs/Day Years Used Date Smoking Tobacco: Never Assessed Comments Unknown Sex and Gender Information Value Date Recorded Sex Assigned at Not on file Legal Sex Female 5:30 AM BEAMSTER Gender Identity Not on file Sexual Orientation Not on file documented as of this encounter Plan of Treatment Upcoming Encounters Date Type Department Care Team (Late st Contact Info) Description 09/07/2025 9:15 AM CDT Office Visit [facility] Heart and Vascular At [address] [place] [address] Randal Cooley MD [address] [place] [address] [address] [place] [address] documented as of this encounter Visit Diagnoses Not on filedocumented in this encounter Additional Health Concerns Infection Onset Date Last Indicated Resolved Time R/O COVID-19 11/08/2019 11/08/2019 11/11/2019 12:3 1 AM CDT R/O COVID-19 02/01/2020 02/01/2020 02/03/2020 2:00 AM BEAMSTER documented as of this encounter Care Teams Chicken Raiser Relationship Specialty Start Date End Date Jina Banda MD PCP - General Internal Medicine 06/20/16 12/03/21 documented as of this encounter
--- OUTSIDE RECORDS SUMMARY | 2025-01-09 06:30 | XMS_ITS | Patient Health Record ---
Author Organization Network Address [address] [place] [address] Care Team Providers Care Building Estimator Name Role Phone Mervin Jay DO Primary [...] Problem Status W/U Status Risk Notes Problem Hemorrhoids without complication (62182888) Hemorrhoids, unspecified hemorrhoid type (K64.9) Active confirmed She notes feeling 1 external nonbleeding hemorrhoid at this time in which she has tried topical hydrocortisone [id number] with mild improvement as well as an old prescription of a hydrocortisone suppository. Problem Diarrhea (38743270) Diarrhea (R19.7) Active confirmed She has known [...] colonoscopy given her daughter has UC Problem Diarrhea (15580084) Diarrhea, unspecified type (R19.7) Active confirmed She [...] food intolerance, medication intolerance, and others. Problem Abdominal pain (23349055) Abdominal cramping (R10.9) Active confirmed Problem Intestinal malabsorption (527481198) Intestinal malabsorption , unspecified type (K90.9) Active confirmed Problem Microscopic colitis (829265361) Microscopic colitis (K52.839) Active confirmed She can continu e Pepto as needded for now Plan Of Treatment Pending Test Test Name Order Date SIBO Breath Test 06/18/2021 Initiate SIBO 05/28/2021 Insurance Providers Payer Name Payer Address Payer Phone Subscriber Number Group Number Insured Name Patient Relationship to Insured Coverage Start Date Coverage End Date Medicare E2 [address] [address] [place] [address] [id number] Ely Wei Self - patient is the insured [employer] Medicare Supplement E2 [address] [place] [address] [id number] Ely Wei Self - patient is [...]
--- OUTSIDE RECORDS SUMMARY | 2025-01-09 06:30 | XMS_ITS | Encounter Summary ---
Author Organization [facility] Address [address] [place] [address] Care Team Providers Care Cheese Weigher Name Role Phone Jina Banda MD Primary Care Provider Unav ailable Encounter Details Date Type Department Care Team (Late st Contact Info) Description 07/09/2000 Outpatient Historical [facility] Internal Medicine - [facility] [address] [address] [facility] [address] [place] [address] Jina Banda MD NO ADDRESS ON FILE Social History Tobacco Use Types Packs/Day Years Used Date Smoking Tobacco: Never Assessed Comments Unknown Sex and Gender Information Value Date Recorded Sex Assigned at Not on file Legal Sex Female 5:30 AM WOOD HEEL FLAP TRIMMER Gender Identity Not on file Sexual Orientation Not on file documented as of this encounter Plan of Treatment Upcoming Encounters Date Type Department Care Team (Late st Contact Info) Description 09/07/2025 9:15 AM CDT Office Visit [facility] Heart and Vascular At [address] [place] [address] Randal Cooley MD [address] [place] [address] [address] [place] [address] documented as of this encounter Visit Diagnoses Not on filedocumented in this encounter Additional Health Concerns Infection Onset Date Last Indicated Resolved Time R/O COVID-19 11/08/2019 11/08/2019 11/11/2019 12:3 1 AM CDT R/O COVID-19 02/01/2020 02/01/2020 02/03/2020 2:00 AM WOOD HEEL FLAP TRIMMER documented as of this encounter Care Teams Cheese Weigher Relationship Specialty Start Date End Date Jina Banda MD PCP - General Internal Medicine 06/20/16 12/03/21 documented as of this encounter
--- OUTSIDE RECORDS SUMMARY | 2025-01-09 06:30 | XMS_ITS | Encounter Summary ---
Author Organization [facility] Address [address] [place] [address] Care Team Providers Care Psych Np Name Role Phone Unavailable Primary Care Provider Unavailabl e Encounter Details Date Type Department Care Team (Late st Contact Info) Description 02/12/2023 Telephone [facility] [employer] [facility] [id number] [place] [address] Sarah Rai RN Social History Tobacco Use Types Packs/Day Years Used Date Smoking Tobacco: Never Smokeless Tobacco: Never Alcohol Use Standard Drinks/Week Comments Not Currently 0 (1 standard drink = 0.6 oz pur e alcohol) Comments No Sex and Gender Information Value Date Recorded Sex Assigned at Not on file Legal Sex Female 5:30 AM FRAMING MILL OPERATOR HELPER Gender Identity Not on file Sexual Orientation Not on file Occupation Industry Job Start Date Job End Date Not on file Not on file Not on file Not on file documented as of this encounter Miscellaneous Notes * Telephone Encounter - Sarah Rai RN - 02/12/2023 1:15 PM FRAMING MILL OPERATOR HELPER Attempted to reach patient regarding follow up after injection. LVM to return call ING MILL OPERATOR HELPER documented in this encounter Plan of Treatment Upcoming Encounters Date Type Department Care Team (Late st Contact Info) Description 09/07/2025 9:15 AM CDT Office Visit [facility] Heart and Vascular At [address] [place] [address] Randal Cooley MD [address] [place] [address] [address] [place] [address] documented as of this encounter Visit Diagnoses Not on filedocumented in this encounter
--- OUTSIDE RECORDS SUMMARY | 2025-01-09 06:31 | XMS_ITS | Encounter Summary ---
Author Organization [facility] Address [address] [place] [address] Care Team Providers Care Social Sciences Instructor Name Role Phone Jina Banda MD Primary Care Provider Unav ailable Encounter Details Date Type Department Care Team (Late st Contact Info) Description 05/26/2007 Outpatient Historical [facility] Internal Medicine - [facility] [address] [address] [facility] [address] [place] [address] Jina Banda MD NO ADDRESS ON FILE Acute Pharyngitis Social History Tobacco Use Types Packs/Day Years Used Date Smoking Tobacco: Never Assessed Comments Unknown Sex and Gender Information Value Date Recorded Sex Assigned at Not on file Legal Sex Female 5:30 AM LEGAL RESEARCH ANALYST Gender Identity Not on file Sexual Orientation Not on file documented as of this encounter Plan of Treatment Upcoming Encounters Date Type Department Care Team (Late st Contact Info) Description 09/07/2025 9:15 AM CDT Office Visit [facility] Heart and Vascular At [address] [place] [address] Randal Cooley MD [address] [place] [address] [address] [place], [place] [id number] documented as of this encounter Procedures Procedure Name Priority Date/Time Associated Diagnosis Comments CBC WITH DIFFERENTIAL Routine 05/26/2007 4:10 PM CDT TSH Routine 05/26/2007 4:10 PM CDT documented in this encounter Results * (ABNORMAL) CBC WITH DIFFERENTIAL (05/26/2007 4:10 PM CDT) PLATELETS 321 140 - 350 K/uL [facility] HEMOGLOBIN 11.7(L) 11.8 - 14.8 g/dL [facility] RDW 14.4 11.5 - 14.5 % [facility] WBC 6.6 4.0 - 9.8 K/uL [facility] MCH 28.1 27.2 - 32.6 pg [facility] MPV 10.8 9.3 - 12.4 fL [facility] HEMATOCRIT 36.7 35.5 - 44.0 % [facility] RDW-STDEV 46.8 37.1 - 48.7 fL [facility] RBC 4.16 3.90 - 4.90 M/uL [facility] MCHC 31.9 31.5 - 35.5 % [facility] MCV 88.2 82.0 - 99.0 fL [facility] EOSINOPHILS 2 0 - 7 % [facility] EOSINOPHIL ABSOLUTE 0.13 0.00 - 0.70 K/uL [facility] LYMPHOCYTES 26 16 - 45 % [facility] LYMPHOCYTE ABSOLUTE 1.74 0.70 - 4.50 K/uL [facility] BASOPHILS 1 0 - 2 % [facility] BASOPHILS ABSOLUTE 0.04 0.00 - 0.20 K/uL [facility] MONOCYTES 8 3 - 13 % [facility] MONOCYTE ABSOLUTE 0.52 0.10 - 1.30 K/uL [facility] NEUTROPHILS 63 45 - 70 % [facility] NEUTROPHIL ABSOLUTE 4.18 1.90 - 7.00 K/uL [facility] Blood specimen (specimen) 05/26/2007 4:10 PM CDT 05/26/2007 8:29 PM CDT us Jina Banda MD HEMATOLOGY ORDERABLES Edite d Performing Organization Address City/[facility] Co de Phone Number INTERFACE SYSTEM Refer to clinic/hospital department [facility] [address] [place] [address] * (ABNORMAL) TSH (05/26/2007 4:10 PM CDT) TSH 10.66(H) 0.27 - 4.20 uU/mL [facility] Blood specimen (specimen) 05/26/2007 4:10 PM CDT 05/26/2007 8:29 PM CDT Jina Banda MD CHEMISTRY ORDERABLES Final Result Performing Organization Address [facility] de Phone Number [facility] [address] [place] [address] documented in this encounter Visit Diagnoses Diagnosis Acute pharyngitis documented in this encounter Additional Health Concerns Infection Onset Date Last Indicated Resolved Time R/O COVID-19 11/08/2019 11/08/2019 11/11/2019 12:3 1 AM CDT R/O COVID-19 02/01/2020 02/01/2020 02/03/2020 2:00 AM LEGAL RESEARCH ANALYST documented as of this encounter Care Teams Social Sciences Instructor Relationship Specialty Start Date End Date Jina Banda MD PCP - General Internal Medicine 06/20/16 12/03/21 documented as of this encounter
--- OUTSIDE RECORDS SUMMARY | 2025-01-09 06:31 | XMS_ITS | Encounter Summary ---
Author Organization [facility] Address [address] [place] [address] Care Team Providers Care Tax Agent Name Role Phone Jina Banda MD Primary Care Provider Unav ailable Encounter Details Date Type Department Care Team (Late st Contact Info) Description 04/18/2004 Outpatient Historical [facility] Internal [place] - [place] [address] [id number] [facility] [address] [place] [address] Jina Banda MD NO ADDRESS ON FILE Social History Tobacco Use Types Packs/Day Years Used Date Smoking Tobacco: Never Assessed Comments Unknown Sex and Gender Information Value Date Recorded Sex Assigned at Not on file Legal Sex Female 5:30 AM PROCESS STEWARD Gender Identity Not on file Sexual Orientation Not on file documented as of this encounter Plan of Treatment Upcoming Encounters Date Type Department Care Team (Late st Contact Info) Description 09/07/2025 9:15 AM CDT Office Visit [facility] At [address] [place] [address] Randal Cooley MD [address] [place] [address] [address] [place] [address] documented as of this encounter Visit Diagnoses Not on filedocumented in this encounter Additional Health Concerns Infection Onset Date Last Indicated Resolved Time R/O COVID-19 11/08/2019 11/08/2019 11/11/2019 12:3 1 AM CDT R/O COVID-19 02/01/2020 02/01/2020 02/03/2020 2:00 AM PROCESS STEWARD documented as of this encounter Care Teams Tax Agent Relationship Specialty Start Date End Date Jnia Banda MD PCP - General Internal Medicine 06/20/16 12/03/21 documented as of this encounter
--- OUTSIDE RECORDS SUMMARY | 2025-01-09 06:31 | XMS_ITS | Encounter Summary ---
Author Organization [facility] Address [address] [place] [address] Care Team Providers Care Teacher Citizenship Name Role Phone Jina Banda MD Primary Care Provider Unav ailable Encounter Details Date Type Department Care Team (Late st Contact Info) Description 10/14/2001 Outpatient Historical [facility] Internal Medicine - [facility] [phone] [facility] [address] [place] [address] Jina Banda MD NO ADDRESS ON FILE Social History Tobacco Use Types Packs/Day Years Used Date Smoking Tobacco: Never Assessed Comments Unknown Sex and Gender Information Value Date Recorded Sex Assigned at Not on file Legal Sex Female 5:30 AM FINISHING AREA SUPERVISOR Gender Identity Not on file Sexual Orientation Not on file documented as of this encounter Plan of Treatment Upcoming Encounters Date Type Department Care Team (Late st Contact Info) Description 09/07/2025 9:15 AM CDT Office Visit [facility] Heart and Vascular At [address] [place] [address] Randal Cooley MD [address] [place] [address] 2014 [place] [address] documented as of this encounter Visit Diagnoses Not on filedocumented in this encounter Additional Health Concerns Infection Onset Date Last Indicated Resolved Time R/O COVID-19 11/08/2019 11/08/2019 11/11/2019 12:3 1 AM CDT R/O COVID-19 02/01/2020 02/01/2020 02/03/2020 2:00 AM FINISHING AREA SUPERVISOR documented as of this encounter Care Teams Teacher Citizenship Relationship Specialty Start Date End Date Jina Banda MD PCP - General Internal Medicine 06/20/16 12/03/21 documented as of this encounter
--- OUTSIDE RECORDS SUMMARY | 2025-01-09 06:31 | XMS_ITS | Encounter Summary ---
Author Organization [facility] Address [address] [place] [address] Care Team Providers Care Wire Puller Name Role Phone Jina Banda MD Primary Care Provider Unav ailable Encounter Details Date Type Department Care Team (Late st Contact Info) Description 12/22/2005 Outpatient Historical [facility] Internal Medicine - [facility] [phone] [facility] [address] [place] [address] Jina Banda MD NO ADDRESS ON FILE Social History Tobacco Use Types Packs/Day Years Used Date Smoking Tobacco: Never Assessed Comments Unknown Sex and Gender Information Value Date Recorded Sex Assigned at Not on file Legal Sex Female 5:30 AM KIER BOILER Gender Identity Not on file Sexual Orientation [...] Description 09/07/2025 9:15 AM CDT Office Visit [facility] Heart and Vascular At [address] [place] [address] Randal Cooley MD [address] [place] [address] [address] [place] [address] documented as of this encounter Visit Diagnoses Not on filedocumented in this encounter Additional Health Concerns Infection Onset Date Last Indicated Resolved Time R/O COVID-19 11/08/2019 11/08/2019 11/11/2019 12:3 1 AM CDT R/O COVID-19 02/01/2020 02/01/2020 02/03/2020 2:00 AM KIER BOILER documented as of this encounter Care Teams Wire Puller Relationship Specialty Start Date End Date Jina Banda MD PCP - General Internal Medicine 06/20/16 12/03/21 documented as of this encounter
--- OUTSIDE RECORDS SUMMARY | 2025-01-09 06:31 | XMS_ITS | Encounter Summary ---
Author Organization [facility] Address [address] [place] [address] Care Team Providers Care Cloth Bale Header Name Role Phone Jina Banda MD Primary Care Provider Unav ailable Encounter Details Date Type Department Care Team (Late st Contact Info) Description 12/09/2006 Orders Only [facility] Internal Medicine - [facility] [address] [address] [facility] [address] [place] [address] Jina Banda MD NO ADDRESS ON FILE Social History Tobacco Use Types Packs/Day Years Used Date Smoking Tobacco: Never Assessed Comments Unknown Sex and Gender Information Value Date Recorded Sex Assigned at Not on file Legal Sex Female 5:30 AM CHARCOAL KILN BURNER Gender Identity Not on file Sexual Orientation Not on file documented as of this encounter Progress Notes * Jina Banda MD - 07/30/2007 6:42 PM CDT TIME:09:45 am PATIENT`S HOME PHONE: PATIENT`S WORK PHONE: PATIENT`S INSURANCE: [facility] WHO TOOK THE CALL: Natasha Krishnan GENERAL INFORMATION PCP: [facility] NUMBER: [phone] SECTION 1: REQUESTED ACTION demetrio 12/09/06 at [...] Description 09/07/2025 9:15 AM CDT Office Visit [facility] Heart and Vascular At [address] [place] [address] Randal Cooley MD [address] [place] [address] [address] [place] [address] documented as of this encounter Visit Diagnoses Not on filedocumented in this encounter Additional Health Concerns Infection Onset Date Last Indicated Resolved Time R/O COVID-19 11/08/2019 11/08/2019 11/11/2019 12:3 1 AM CDT R/O COVID-19 02/01/2020 02/01/2020 02/03/2020 2:00 AM CHARCOAL KILN BURNER documented as of this encounter Care Teams Cloth Bale Header Relationship Specialty Start Date End Date Jina Banda MD PCP - General Internal Medicine 06/20/16 12/03/21 documented as of this encounter
--- OUTSIDE RECORDS SUMMARY | 2025-01-09 06:31 | XMS_ITS | Encounter Summary ---
Author Organization [facility] Address [address] [place] [address] Care Team Providers Care Claims Investigator Name Role Phone Jina Banda MD Primary Care Provider Unav ailable Encounter Details Date Type Department Care Team (Late st Contact Info) Description 02/16/2007 Outpatient Historical [facility], Authorized P NO ADDRESS ON FILE William Pimentel MD [address] [place] [address] Lisa Palafox MD NO ADDRESS ON FILE Other and Unspecified Noninfectious Gastroenteritis and Colitis Social History Tobacco Use Types Packs/Day Years Used Date Smoking Tobacco: Never Assessed Comments Unknown Sex and Gender Information Value Date Recorded Sex Assigned at Not on file Legal Sex Female 5:30 AM EXTRUDING MACHINE OPERATOR Gender Identity Not on file Sexual Orientation Not on file documented as of this encounter Plan of Treatment Upcoming Encounters Date Type Department Care Team (Late Contact Info) Description 09/07/2025 9:15 AM CDT Office Visit [facility] Heart and Vascular At [address] [place] [address] Randal Cooley MD [address] [place] [address] 2014 [place] [address] documented as of this encounter Procedures Procedure Name Priority Date/Time Associated Diagnosis Comments CBC WITH DIFFERENTIAL Routine 02/18/2007 4:56 AM EXTRUDING MACHINE OPERATOR CBC WITH DIFFERENTIAL Routine 02/18/2007 4:56 AM EXTRUDING MACHINE OPERATOR COMPREHENSIVE METABOLIC PANEL Routine 02/18/2007 4:56 AM EXTRUDING MACHINE OPERATOR CBC WITH DIFFERENTIAL Routine 02/17/2007 4:48 AM EXTRUDING MACHINE OPERATOR CBC WITH DIFFERENTIAL Routine 02/17/2007 4:48 AM EXTRUDING MACHINE OPERATOR C-REACTIVE PROTEIN Routine 02/17/2007 4: 48 AM EXTRUDING MACHINE OPERATOR VITAMIN B12 LEVEL Routine 02/17/2007 4:4 8 AM EXTRUDING MACHINE OPERATOR BASIC METABOLIC PANEL Routine 02/17/2007 4:48 AM EXTRUDING MACHINE OPERATOR CBC WITH DIFFERENTIAL Routine 02/16/2007 10:35 PM EXTRUDING MACHINE OPERATOR CBC WITH DIFFERENTIAL Routine 02/16/2007 10:35 PM EXTRUDING MACHINE OPERATOR LIPASE Routine 02/16/2007 10:35 PM EXTRUDING MACHINE OPERATOR AMYLASE Routine 02/16/2007 10:35 PM EXTRUDING MACHINE OPERATOR COMPREHENSIVE METABOLIC PANEL Routine 02/16/2007 10:35 PM EXTRUDING MACHINE OPERATOR documented in this encounter Results * (ABNORMAL) CBC WITH DIFFERENTIAL (02/18/2007 4:56 AM EXTRUDING MACHINE OPERATOR) NEUTROPHILS 39(L) 45 - 70 % INTERFAC [...] 0.20 K/uL INTERFACE SYSTEM 02/18/2007 4:56 AM EXTRUDING MACHINE OPERATOR us Lisa Palafox MD HEMATOLOGY ORDERABLES Edited Performing Organization Address City/[facility] Co de Phone Number INTERFACE SYSTEM Refer to clinic/hospital department * (ABNORMAL) CBC WITH DIFFERENTIAL (02/18/2007 4:56 AM EXTRUDING MACHINE OPERATOR) WBC 3.2(L) 4.0 - 9.8 K/uL INTERFACE [...] 12.4 fL INTERFACE SYSTEM 02/18/2007 4:56 AM EXTRUDING MACHINE OPERATOR Lisa Palafox MD HEMATOLOGY ORDERABLES Edited Performing Organization Address [facility] de Phone Number INTERFACE SYSTEM Refer to clinic/hospital department * (ABNORMAL) COMPREHENSIVE METABOLIC PANEL (02/18/2007 4:56 AM EXTRUDING MACHINE OPERATOR) GLUCOSE 81 65 - 99 mg/dL INTERFACE [...] and non- Americans is available on the [facility] Intranet at: [email or web address] Select: Lab Policies and Procedures Select: Reference Ranges - GFR 02/18/2007 4:56 AM EXTRUDING MACHINE OPERATOR Lisa Palafox MD CHEMISTRY ORDERABLES Edited Performing Organization Address [facility] de Phone Number INTERFACE SYSTEM Refer to clinic/hospital department * CBC WITH DIFFERENTIAL (02/17/2007 4:48 AM EXTRUDING MACHINE OPERATOR) NEUTROPHILS 67 45 - 70 % INTERFAC [...] 0.20 K/uL INTERFACE SYSTEM 02/17/2007 4:48 AM EXTRUDING MACHINE OPERATOR William Pimentel MD HEMATOLOGY ORDERABLES Edited Performing Organization Address [facility] Phone Number INTERFACE SYSTEM Refer to clinic/hospital department * (ABNORMAL) CBC WITH DIFFERENTIAL (02/17/2007 4:48 AM EXTRUDING MACHINE OPERATOR) WBC 2.9(L) 4.0 - 9.8 K/uL INTERFACE [...] 12.4 fL INTERFACE SYSTEM 02/17/2007 4:48 AM EXTRUDING MACHINE OPERATOR Result Arash Pimentel MD HEMATOLOGY ORDERABLES Edited Performing Organization Address [facility] Phone Number INTERFACE SYSTEM Refer to clinic/hospital department * VITAMIN B12 (02/17/2007 4:48 AM EXTRUDING MACHINE OPERATOR) VITAMIN B12 211 211 - 946 pg/mL INTERFACE SYSTEM Comment: It has been reported that between 5 to 10% of patients with values between 200 and 400 pg/mL may experience neuropsychiatric and hematologic abnormalities due to occult B12 deficiency. Less than 1% of patients with values above 400 pg/mL will have symptoms. 02/17/2007 4:48 AM EXTRUDING MACHINE OPERATOR Result Arash Pimentel MD CHEMISTRY ORDERABLES Edited Performing Organization Address [facility] Phone Number INTERFACE SYSTEM Refer to clinic/hospital department * C-REACTIVE PROTEIN (02/17/2007 4:48 AM EXTRUDING MACHINE OPERATOR) CRP <0.2 0.0 - 0.8 mg/dL INTERFACE SYSTEM 02/17/2007 4:48 AM EXTRUDING MACHINE OPERATOR Result Arash Pimentel MD CHEMISTRY ORDERABLES Edited Performing Organization Address [facility] de Phone Number INTERFACE SYSTEM Refer to clinic/hospital department * (ABNORMAL) BASIC METABOLIC PANEL (02/17/2007 4:48 AM EXTRUDING MACHINE OPERATOR) GLUCOSE 111(H) 65 - 99 mg/dL INTERFACE [...] and non- Americans is available on the [facility] at: [email or web address] Select: Lab Policies and Procedures Select: Reference Ranges - GFR 02/17/2007 4:48 AM EXTRUDING MACHINE OPERATOR William Pimentel MD CHEMISTRY ORDERABLES Edited INTERFACE SYSTEM Refer to clinic/hospital department * (ABNORMAL) CBC WITH DIFFERENTIAL (02/16/2007 10:35 PM EXTRUDING MACHINE OPERATOR) NEUTROPHILS 46 45 - 70 % INTERFAC [...] K/uL INTERFACE SYSTEM 02/16/2007 10:3 5 PM EXTRUDING MACHINE OPERATOR us Daniel Garcia MD HEMATOLOGY ORDERABLES Edited Performing Organization Address [facility] Phone Number INTERFACE SYSTEM Refer to clinic/hospital department * (ABNORMAL) CBC WITH DIFFERENTIAL (02/16/2007 10:35 PM EXTRUDING MACHINE OPERATOR) WBC 3.5(L) 4.0 - 9.8 K/uL INTERFACE [...] fL INTERFACE SYSTEM 02/16/2007 10:3 5 PM EXTRUDING MACHINE OPERATOR Daniel Garcia MD HEMATOLOGY ORDERABLES Edited Performing Organization Address [facility] Phone Number INTERFACE SYSTEM Refer to clinic/hospital department * LIPASE (02/16/2007 10:35 PM EXTRUDING MACHINE OPERATOR) LIPASE 58 13 - 60 U/L INTERFAC E SYSTEM 02/16/2007 10:3 5 PM EXTRUDING MACHINE OPERATOR Daniel Garcia MD CHEMISTRY ORDERABLES Edited Performing Organization Address [facility] de Phone Number INTERFACE SYSTEM Refer to clinic/hospital department * AMYLASE (02/16/2007 10:35 PM EXTRUDING MACHINE OPERATOR) AMYLASE 86 28 - 100 U/L INTERFACE SYSTEM 02/16/2007 10:3 5 PM EXTRUDING MACHINE OPERATOR Daniel Garcia MD CHEMISTRY ORDERABLES Edited Performing Organization Address [facility] de Phone Number INTERFACE SYSTEM Refer to clinic/hospital department * (ABNORMAL) COMPREHENSIVE METABOLIC PANEL (02/16/2007 10:35 PM EXTRUDING MACHINE OPERATOR) GLUCOSE 98 65 - 99 mg/dL INTERFACE [...] and non- Americans is available on the [facility] Intr[facility] at: [email or web address] Select: Lab Policies and Procedures Select: Reference Ranges - GFR 02/16/2007 10:3 5 PM EXTRUDING MACHINE OPERATOR Daniel Garcia MD CHEMISTRY ORDERABLES Edited INTERFACE SYSTEM Refer to clinic/hospital department documented in this encounter Visit Diagnoses Diagnosis Other and unspecified noninfectious gastroenteritis and colitis(558.9) Other and unspecified noninfectious gastroenteritis and colitis documented in this encounter Additional Health Concerns Infection Onset Date Last Indicated Resolved Time R/O COVID-19 11/08/2019 11/08/2019 11/11/2019 12:3 1 AM CDT R/O COVID-19 02/01/2020 02/01/2020 02/03/2020 2:00 AM EXTRUDING MACHINE OPERATOR documented as of this encounter Care Teams Claims Investigator Relationship Specialty Start Date End Date Jina Banda MD PCP - General Internal Medicine 06/20/16 12/03/21 documented as of this encounter
--- OUTSIDE RECORDS SUMMARY | 2025-01-09 06:31 | XMS_ITS | Encounter Summary ---
Author Organization [facility] Address [address] [place] [address] Care Team Providers Care Brush Holder Assembler Name Role Phone Jina Banda MD [...] on file Legal Sex Female 5:30 AM PLATING TECHNICIAN Gender Identity Not on file Sexual Orientation Not on file documented as of this encounter Plan of Treatment Upcoming Encounters Date Type Department Care Team (Late st Contact Info) Description 09/07/2025 9:15 AM CDT Office Visit [facility] Heart and Vascular At [address] [place] [address] Randal Cooley MD [address] [place] [address] 2014 [place] [address] documented as of this encounter Visit Diagnoses Diagnosis Unspecified hypothyroidism documented in this encounter Additional Health Concerns Infection Onset Date Last Indicated Resolved Time R/O COVID-19 11/08/2019 11/08/2019 11/11/2019 12:3 1 AM CDT R/O COVID-19 02/01/2020 02/01/2020 02/03/2020 2:00 AM PLATING TECHNICIAN documented as of this encounter Care Teams Brush Holder Assembler Relationship Specialty Start Date End Date Jina Banda MD PCP - General Internal Medicine 06/20/16 12/03/21 documented as of this encounter
--- OUTSIDE RECORDS SUMMARY | 2025-01-09 06:31 | XMS_ITS | Encounter Summary ---
Author Organization [facility] Address [address] [place] [address] Care Team Providers Care Conference Center Manager Name Role Phone Jina Banda MD Primary Care Provider Unav ailable Encounter Details Date Type Department Care Team (Late Contact Info) Description 09/20/2008 Outpatient Historical [facility] Thelma Mota MD [address] [facility] [address] [place], [place] [id number] Diarrhea Social History Tobacco Use Types Packs/Day Years Used Date Smoking Tobacco: Never Alcohol Use Standard Drinks/Week Comments Not Asked 0 (1 standard drink = 0.6 oz pur e alcohol) Comments No Sex and Gender Information Value Date Recorded Sex Assigned at Not on file Legal Sex Female 5:30 AM COLLEGE OR UNIVERSITY DEPARTMENT HEAD Gender Identity Not on file Sexual Orientation Not on file documented as of this encounter Plan of Treatment Upcoming Encounters Date Type Department Care Team (Late Contact Info) Description 09/07/2025 9:15 AM CDT Office Visit [facility] Heart and Vascular At [address] [place] [address] Randal Cooley MD [address] [place] [address] 2014 [place] [address] documented as of this encounter [...] AM CDT) ENDOMYSIAL AB IGA Negative Negative [facility] Comment: Lab test performed by: [employer]/[facility]AST[facility] [address] [place] [phone] GIUSEPPE RUTLEDGE MD 09/20/2008 9:35 AM CDT 09/20/2008 9:53 AM CDT Narrative INTERFACE SYSTEM - 09/23/2008 5:50 AM CDT cc: Eva Borden CNP Thelma Haile MD CHEMISTRY ORDERABLES Final R formerly [facility] Performing Organization Address [facility] Phone Number INTERFACE SYSTEM Refer to clinic/hospital department [facility] CLIA# [id number] [place] [address] * (ABNORMAL) IGA (09/20/2008 9:35 AM CDT) IGA <5.0(L) 87.0 - 421.0 mg/dL [facility] 09/20/2008 9:35 AM CDT 09/20/2008 9:53 AM CDT [employer] INTERFACE SYSTEM - 09/20/2008 10:51 AM CDT cc: Eva Borden CNP Thelma Haile MD CHEMISTRY ORDERABLES Final R esult Performing Organization Address City/[facility] de Phone Number INTERFACE SYSTEM Refer to clinic/hospital department [facility] CLIA# [id number] [address] [place] [address] * GLIADIN ABS IGG/IGA (09/20/2008 9:35 AM CDT) GLIADIN IGA AB <3 <11 U/mL [facility] Comment: Reference Range: <11 U/mL Negative 11-17 U/mL Equivocal >17 U/mL Positive Lab test performed by: [employer] [place] GIUSEPPE RUTLEDGE MD GLIADIN IGG AB 7 <11 U/mL [facility] Comment: Reference Range: <11 U/mL Negative 11-17 U/mL Equivocal >17 U/mL Positive 09/20/2008 9:35 AM CDT 09/20/2008 9:53 AM CDT Narrative INTERFACE SYSTEM - 09/22/2008 4:34 PM CDT cc: Eva Borden CNP Thelma Haile MD CHEMISTRY ORDERABLES Final R esult INTERFACE SYSTEM Refer to clinic/hospital department [facility] CLIA# [id number] [address] [place] [address] * TRANSGLUTAMINASE IGG ANTIBODY (09/20/2008 9:35 AM CDT) TRANSGLUTAMINASE IGG AB <3 <7 U/mL [facility] Comment: Reference range: <7 U/mL Negative 7-10 U/mL Equivocal >10 U/mL Positive Lab test performed by: [employer] [place] GIUSEPPE RUTLEDGE MD 09/20/2008 9:35 AM CDT 09/20/2008 9:53 AM CDT Narrative INTERFACE SYSTEM - 09/25/2008 7:17 PM CDT cc: Eva Borden CNP Thelma Haile MD CHEMISTRY ORDERABLES Final R esult Performing Organization Address [facility] de Phone Number INTERFACE SYSTEM Refer to clinic/hospital department [facility] CLIA# [id number] [address] [place] [address] * TRANSGLUTAMINASE IGA ANTIBODY (09/20/2008 9:35 AM CDT) TRANSGLUTAMINASE IGA AB <3 <5 U/mL [facility] Comment: Reference range: <5 U/mL Negative 5-8 U/mL Equivocal >8 U/mL Positive Lab test performed by: [employer] [address] [place] [phone] GIUSEPPE RUTLEDGE MD 09/20/2008 9:35 AM CDT 09/20/2008 9:53 AM CDT Narrative INTERFACE SYSTEM - 09/23/2008 8:24 PM CDT cc: Eva Borden CNP Thelma Haile MD CHEMISTRY ORDERABLES Final R esult Performing Organization Address [facility] de Phone Number INTERFACE SYSTEM Refer to clinic/hospital department [facility] CLIA# [id number] [address] [place] [address] documented in this encounter Visit Diagnoses Diagnosis Diarrhea documented in this encounter Additional Health Concerns Infection Onset Date Last Indicated Resolved Time R/O COVID-19 11/08/2019 11/08/2019 11/11/2019 12:3 1 AM CDT R/O COVID-19 02/01/2020 02/01/2020 02/03/2020 2:00 AM COLLEGE OR UNIVERSITY DEPARTMENT HEAD documented as of this encounter Care Teams Conference Center Manager Relationship Specialty Start Date End Date Jina Banda MD PCP - General Internal Medicine 06/20/16 12/03/21 documented as of this encounter
--- OUTSIDE RECORDS SUMMARY | 2025-01-09 06:31 | XMS_ITS | Encounter Summary ---
Author Organization [facility] Address [address] [place] [address] Care Team Providers Care Property Custodian Name Role Phone Jina Banda MD Primary Care Provider Unav ailable Encounter Details Date Type Department Care Team (Late st Contact Info) Description 06/04/2007 Orders Only [facility] Internal Medicine - [facility] [address] [address] [facility] [address] [place] [address] Jina Banda MD NO ADDRESS ON FILE Social History Tobacco Use Types Packs/Day Years Used Date Smoking Tobacco: Never Assessed Comments Unknown Sex and Gender Information Value Date Recorded Sex Assigned at Not on file Legal Sex Female 5:30 AM OPERATIONS ASSOCIATE Gender Identity Not on file Sexual Orientation Not on file documented as of this encounter Plan of Treatment Upcoming Encounters Date Type Department Care Team (Late st Contact Info) Description 09/07/2025 9:15 AM CDT Office Visit [facility] Heart and Vascular At [address] [place] [address] Randal Cooley MD [address] [place] [address] 2014 [place] [address] documented as of this encounter Visit Diagnoses Not on filedocumented in this encounter Additional Health Concerns Infection Onset Date Last Indicated Resolved Time R/O COVID-19 11/08/2019 11/08/2019 11/11/2019 12:3 1 AM CDT R/O COVID-19 02/01/2020 02/01/2020 02/03/2020 2:00 AM OPERATIONS ASSOCIATE documented as of this encounter Care Teams Property Custodian Relationship Specialty Start Date End Date Jina Banda MD PCP - General Internal Medicine 06/20/16 12/03/21 documented as of this encounter
--- OUTSIDE RECORDS SUMMARY | 2025-01-09 06:31 | XMS_ITS | Encounter Summary ---
Author Organization [facility] Address [address] [place] [address] Care Team Providers Care Litigation Examiner Name Role Phone Jina Banda MD Primary Care Provider Unav ailable Encounter Details Date Type Department Care Team (Latest Contact Info) Description 04/14/2005 Inpatient Historical [facility] PATIENT IN A BED Jack Thompson MD [address] [place] [id number] Jill Moran MD [address] [phone] INFLUENZA WITH PNEUMONIA (Primary Dx) Social History Tobacco Use Types Packs/Day Years Used Date Smoking Tobacco: Never Assessed Comments Unknown Sex and Gender Information Value Date Recorded Sex Assigned at Not on file Legal Sex Female 5:30 AM CYTOLOGY TEACHER Gender Identity Not on file Sexual Orientation Not on file documented as of this encounter Plan of Treatment Upcoming Encounters Date Type Department Care Team (Late st Contact Info) Description 09/07/2025 9:15 AM CDT Office Visit [facility] Heart and Vascular At [address] [place] [address] Randal Cooley MD [address] [place] [address] 2014 [place], [place] [phone] documented as of this encounter Procedures Procedure Name Priority Date/Time Associated Diagnosis Comments URINALYSIS WITH REFLEX CULTURE Routine 04/15/2005 8:55 AM CYTOLOGY TEACHER URINALYSIS W/REFLEX MICROSCOPIC Routine 04/15/2005 8:55 AM CYTOLOGY TEACHER MONONUCLEOSIS SCREEN Routine 04/14/2005 8:50 PM CYTOLOGY TEACHER URINALYSIS WITH REFLEX CULTURE Routine 04/14/2005 7:01 PM CYTOLOGY TEACHER URINALYSIS W/REFLEX MICROSCOPIC Routine 04/14/2005 7:01 PM CYTOLOGY TEACHER CBC WITH DIFFERENTIAL Routine 04/14/2005 5:25 PM CYTOLOGY TEACHER CBC WITH DIFFERENTIAL Routine 04/14/2005 5:25 PM CYTOLOGY TEACHER TSH Routine 04/14/2005 5:25 PM CYTOLOGY TEACHER COMPREHENSIVE METABOLIC PANEL Routine 04/14/2005 5:25 PM CYTOLOGY TEACHER documented in this encounter Results * (ABNORMAL) URINALYSIS (04/15/2005 8:55 AM CYTOLOGY TEACHER) COLOR UA Colorless INTERFACE SYSTEM CLARITY UA [...] 2-5 /HPF INTERFACE SYSTEM 04/15/2005 8:55 AM CYTOLOGY TEACHER us Jill Moran MD URINE ORDERABLES Final Result INTERFACE SYSTEM Refer to clinic/hospital department * URINALYSIS WITH REFLEX CULTURE (04/15/2005 8:55 AM CYTOLOGY TEACHER) URINE CULTURE ORDER Culture ordered INTERFACE SYSTEM Comment: Criteria for a reflex culture include one or more of the following: Abn ormal nitrite, leukocyte esterase, WBCs or RBCs. Lack of qualifying criteria does not exclude the possiblity of a urinary tract infection. Dilute urine, drug interference, etc. may decrease the sensitivity of the criteria analytes. 04/15/2005 8:55 AM CYTOLOGY TEACHER Jill Moran MD URINE ORDERABLES Final Result Performing Organization Address [facility] Phone Number INTERFACE SYSTEM Refer to clinic/hospital department * MONONUCLEOSIS SCREEN (04/14/2005 8:50 PM CYTOLOGY TEACHER) Pathologist [facility] MONONUCLEOSIS SCREEN Negative Negative INTERFACE SYSTEM 04/14/2005 8:50 PM CYTOLOGY TEACHER Jill Moran MD HEMATOLOGY ORDERABLES Final Re sult Performing Organization Address [facility] Phone Number INTERFACE SYSTEM Refer to clinic/hospital department * URINALYSIS (04/14/2005 7:01 PM CYTOLOGY TEACHER) Pathologist [facility] COLOR UA Yellow INTERFACE SYSTEM CLARITY UA [...] Negative Negative INTERFACE SYSTEM 04/14/2005 7:01 PM CYTOLOGY TEACHER Jina Banda MD URINE ORDERABLES Final Resu lt Performing Organization Address [facility] Phone Number INTERFACE SYSTEM Refer to clinic/hospital department * URINALYSIS WITH REFLEX CULTURE (04/14/2005 7:01 PM CYTOLOGY TEACHER) URINE CULTURE ORDER Not indicated INTERFACE SYSTEM Comment: Criteria for a reflex culture include one or more of the following: Abn ormal nitrite, leukocyte esterase, WBCs or RBCs. Lack of qualifying criteria does not exclude the possiblity of a urinary tract infection. Dilute urine, drug interference, etc. may decrease the sensitivity of the criteria analytes. 04/14/2005 7:01 PM CYTOLOGY TEACHER Jina Banda MD URINE ORDERABLES Final Resu lt Performing Organization Address [facility] Phone Number INTERFACE SYSTEM Refer to clinic/hospital department * CBC WITH DIFFERENTIAL (04/14/2005 5:25 PM CYTOLOGY TEACHER) NEUTROPHILS 69 45 - 70 % INTERFAC [...] 0.20 K/uL INTERFACE SYSTEM 04/14/2005 5:25 PM CYTOLOGY TEACHER Mervin Butcher DO HEMATOLOGY ORDERABLES Final R esult Performing Organization Address [facility] Phone Number INTERFACE SYSTEM Refer to clinic/hospital department * (ABNORMAL) CBC WITH DIFFERENTIAL (04/14/2005 5:25 PM CYTOLOGY TEACHER) WBC 3.5(L) 4.0 - 9.8 K/uL INTERFACE [...] 12.4 fL INTERFACE SYSTEM 04/14/2005 5:25 PM CYTOLOGY TEACHER Mervin Butcher DO HEMATOLOGY ORDERABLES Final R esult Performing Organization Address [facility] Phone Number INTERFACE SYSTEM Refer to clinic/hospital department * TSH (04/14/2005 5:25 PM CYTOLOGY TEACHER) TSH 0.45 0.27 - 4.20 uU/mL INTERFACE SYSTEM 04/14/2005 5:25 PM CYTOLOGY TEACHER Mervin Butcher DO CHEMISTRY ORDERABLES Final Re sult Performing Organization Address [facility] Phone Number INTERFACE SYSTEM Refer to clinic/hospital department * (ABNORMAL) COMPREHENSIVE METABOLIC PANEL (04/14/2005 5:25 PM CYTOLOGY TEACHER) GLUCOSE 102 65 - 109 mg/dL INTERFACE [...] 30 mmol/L INTERFACE SYSTEM 04/14/2005 5:25 PM CYTOLOGY TEACHER Mervin Butcher DO CHEMISTRY ORDERABLES Final Re sult Performing Organization Address [facility] Phone Number INTERFACE SYSTEM Refer to clinic/hospital department documented in this encounter Visit Diagnoses Diagnosis Influenza with pneumonia- Primary documented in this encounter Additional Health Concerns Infection Onset Date Last Indicated Resolved Time R/O COVID-19 11/08/2019 11/08/2019 11/11/2019 12:3 1 AM CDT R/O COVID-19 02/01/2020 02/01/2020 02/03/2020 2:00 AM CYTOLOGY TEACHER documented as of this encounter Care Teams Litigation Examiner Relationship Specialty Start Date End Date Jina Banda MD PCP - General Internal Medicine 06/20/16 12/03/21 documented as of this encounter
--- OUTSIDE RECORDS SUMMARY | 2025-01-09 06:31 | XMS_ITS | Encounter Summary ---
Author Organization [facility] Address [address] [place] [address] Care Team Providers Care Cert Occupational Therapy Asst Name Role Phone Jina Banda MD Primary Care Provider Unav ailable Encounter Details Date Type Department Care Team (Late st Contact Info) Description 06/16/2006 Outpatient Historical [facility] Internal Medicine - [facility] [address] [address] [facility] [address] [place] [address] Jina Banda MD NO ADDRESS ON FILE Other Specified Visual Disturbances (Primary Dx) Social History Tobacco Use Types Packs/Day Years Used Date Smoking Tobacco: Never Assessed Comments Unknown Sex and Gender Information Value Date Recorded Sex Assigned at Not on file Legal Sex Female 5:30 AM CAREER DISCOVERY TEACHER Gender Identity Not on file Sexual Orientation Not on file documented as of this encounter Plan of Treatment Upcoming Encounters Date Type Department Care Team (Late st Contact Info) Description 09/07/2025 9:15 AM CDT Office Visit [facility] Heart and Vascular At [address] [place] [address] Randal Cooley MD [address] [place] [address] 2014 [place], [place] [phone] documented as of this encounter Procedures Procedure [...] and non- Americans is available on the [facility] Intranet at: [email or web address] Select: Lab Policies and Procedures Select: Reference [...] R/O COVID-19 02/01/2020 02/01/2020 02/03/2020 2:00 AM CAREER DISCOVERY TEACHER documented as of this encounter Care Teams Cert Occupational Therapy Asst Relationship Specialty Start Date End Date Jina Banda MD PCP - General Internal Medicine 06/20/16 12/03/21 documented as of this encounter
--- OUTSIDE RECORDS SUMMARY | 2025-01-09 06:31 | XMS_ITS | Encounter Summary ---
Author Organization [facility] Address [address] [place] [address] Care Team Providers Care Graphic Designer Name Role Phone Jina Banda MD Primary Care Provider Unav ailable Encounter Details Date Type Department Care Team (Late st Contact Info) Description 06/30/2007 Orders Only [facility] Internal Medicine - [facility] [address] [address] [facility] [address] [place] [address] Jina Banda MD NO ADDRESS ON FILE Social History Tobacco Use Types Packs/Day Years Used Date Smoking Tobacco: Never Assessed Comments Unknown Sex and Gender Information Value Date Recorded Sex Assigned at Not on file Legal Sex Female 5:30 AM EXECUTIVE WELLNESS PROGRAMS DIRECTOR Gender Identity Not on file Sexual Orientation Not on file documented as of this encounter Progress Notes * Jina Banda MD - 08/20/2007 10:30 AM CDT TIME:11:04 am PATIENT`S HOME PHONE: PATIENT`S WORK PHONE: PATIENT`S INSURANCE: [facility] WHO TOOK THE CALL: Vivi Rock A GENERAL INFORMATION PCP: [facility] PHARMACY NUMBER: [phone] SECTION 1: REQUESTED ACTION obertt 06/30/07 at 11:05 am: MEDICATION REQUEST: MEDICATIONS: PAROXETINE HCL ORAL TABLET 10 MG, 1/2 tab qd, 30 Dispensed, status: NEW PRESCRIPTION, 05/26/2007. Rx request says 1 tab QD? Last RF 05/21/07 RECEIVED FAXED REQUEST FROM THE PHARMACY [facility]. [place], [place]. DOCTOR`S RESPONSE: herlinda 06/30/07 at 12:45 [...] [facility] Heart and Vascular At [address] [place] [address] Randal Cooley MD [address] [place] [address] 2014 [place] [address] documented as of this encounter Visit Diagnoses Not on filedocumented in this encounter Additional Health Concerns Infection Onset Date Last Indicated Resolved Time R/O COVID-19 11/08/2019 11/08/2019 11/11/2019 12:3 1 AM CDT R/O COVID-19 02/01/2020 02/01/2020 02/03/2020 2:00 AM EXECUTIVE WELLNESS PROGRAMS DIRECTOR documented as of this encounter Care Teams Graphic Designer Relationship Specialty Start Date End Date Jina Banda MD PCP - General Internal Medicine 06/20/16 12/03/21 documented as of this encounter
--- OUTSIDE RECORDS SUMMARY | 2025-01-09 06:31 | XMS_ITS | Encounter Summary ---
Author Organization [facility] Address [address] [place] [address] Care Team Providers Care Train Examiner Name Role Phone Linda Gimenez MD Primary Care Provider Unav ailable Encounter Details Date Type Department Care Team (Latest Contact Info) Description 02/04/2008 Outpatient Historical [facility] PATRICIO Barah[place], Bailee [place], NO ADDRESS ON FILE Other Screening Mammogram Social History Tobacco Use Types Packs/Day Years Used Date Smoking Tobacco: Never Alcohol Use Standard Drinks/Week Comments Not Asked 0 (1 standard drink = 0.6 oz pur e alcohol) Comments No Sex and Gender Information Value Date Recorded Sex Assigned at Not on file Legal Sex Female 5:30 AM PRESS OPERATOR MEAT Gender Identity Not on file Sexual Orientation Not on file documented as of this encounter Plan of Treatment Upcoming Encounters Date Type Department Care Team (Late st Contact Info) Description 09/07/2025 9:15 AM CDT Office Visit [facility] Heart and Vascular At [address] [place] [address] Randal Cooley MD [address] [place] [address] 2014 [place] [address] documented as of this encounter Procedures Procedure Name Priority Date/Time Associated Diagnosis Comments MAMMO SCREEN BILAT W OR WO CAD Routine 02/04/2008 8:06 AM PRESS OPERATOR MEAT documented in this encounter Results * MAMMO DIGITAL SCREEN BILAT (02/04/2008 8:06 AM PRESS OPERATOR MEAT) Anatomical Region Laterality Modality Breast Bilateral Other 02/04/2008 8:06 AM PRESS OPERATOR MEAT Narrative 02/04/2008 11:46 PM PRESS OPERATOR MEAT [place] [address] [place], [place] [address] Admit Date: 02/04/2008 EDU WEI Sex: F Admit Prov: BAILEE BARAHONA Date: 1960 Primary Care Prov: LINDA GIMENEZ CMRN: [id number] Room: JOSUE N: [id number] IMAGING SERVICES Ordering Prov: BAILEE BARAHONA Accession Number: [id number] Interpretation BILATERAL SCREENING DIGITAL MAMMOGRAMS WITH COMPUTER [...] Procedure Note Kecia Arreola MD - 02/04/2008 [place] [address] [place], [place] [address] Admit Date: 02/04/2008 EDU WEI Sex: F Admit Prov: BAILEE BARAHONA Date:1960 Primary Care Prov: LINDA GIMENEZ CMRN: [id number] Room: JOSUE N: [id number] IMAGING SERVICES Ordering Prov: BAILEE BARAHONA Interpretation BILATERAL SCREENING DIGITAL MAMMOGRAMS WITH COMPUTER ASSISTEDDIAGNOSIS 02/04/2008 History: Annual screening study. Comparison mammograms dating back to 2005 FINDINGS: The parenchyma is very dense bilaterally. This lowersthe sensitivity of mammography in detecting disease. There is no mass, malignant calcification, lymphadenopathy, architectural distortion orother sign of malignancy. The images were reviewed using the [employer] miniDaT. SUMMARY: Dense mammary parenchyma. No mammographic evidence [...] R/O COVID-19 02/01/2020 02/01/2020 02/03/2020 2:00 AM PRESS OPERATOR MEAT documented as of this encounter Care Teams Train Examiner Relationship Specialty Start Date End Date Linda Gimenez MD PCP - General Internal Medicine 06/20/16 12/03/21 documented as of this encounter
--- OUTSIDE RECORDS SUMMARY | 2025-01-09 06:31 | XMS_ITS | Encounter Summary ---
Author Organization [facility] Address [address] [place] [address] Care Team Providers Care Controller [place] Name Role Phone Jina Banda MD Primary Care Provider Unav ailable Encounter Details Date Type Department Care Team (Late Contact Info) Description 04/15/2005 Outpatient Historical [facility] [address] [address] Jack Thompson MD [address] [place] [phone] Social History Tobacco Use Types Packs/Day Years Used Date Smoking Tobacco: Never Assessed Comments Unknown Sex and Gender Information Value Date Recorded Sex Assigned at Not on file Legal Sex Female 5:30 AM HEMODIALYSIS RN Gender Identity Not on file Sexual Orientation Not on file documented as of this encounter Plan of Treatment Upcoming Encounters Date Type Department Care Team (Late st Contact Info) Description 09/07/2025 9:15 AM CDT Office Visit [facility] Heart and Vascular At [address] [place] [address] Randal Cooley MD [address] [place] [address] 2014 [place], [place] [phone] documented as of this encounter Visit Diagnoses Not on filedocumented in this encounter Additional Health Concerns Infection Onset Date Last Indicated Resolved Time R/O COVID-19 11/08/2019 11/08/2019 11/11/2019 12:3 1 AM CDT R/O COVID-19 02/01/2020 02/01/2020 02/03/2020 2:00 AM HEMODIALYSIS RN documented as of this encounter Care Teams Controller [place] Relationship Specialty Start Date End Date Jina Banda MD PCP - General Internal Medicine 06/20/16 12/03/21 documented as of this encounter
--- OUTSIDE RECORDS SUMMARY | 2025-01-09 06:31 | XMS_ITS | Encounter Summary ---
Author Organization [facility] Address [address] [place] [address] Care Team Providers Care Therapeutic Mentor Name Role Phone Jina Banda MD Primary Care Provider Unav ailable Encounter Details Date Type Department Care Team (Late st Contact Info) Description 04/14/2005 Outpatient Historical [facility] Internal Medicine - [facility] [address] [address] [facility] [address] [place] [address] Jina Banda MD NO ADDRESS ON FILE Social History Tobacco Use Types Packs/Day Years Used Date Smoking Tobacco: Never Assessed Comments Unknown Sex and Gender Information Value Date Recorded Sex Assigned at Not on file Legal Sex Female 5:30 AM MECHATRONICS ENGINEER Gender Identity Not on file Sexual Orientation Not on file documented as of this encounter Plan of Treatment Upcoming Encounters Date Type Department Care Team (Late st Contact Info) Description 09/07/2025 9:15 AM CDT Office Visit [facility] Heart and Vascular At [address] [place] [address] Randal Cooley MD [address] [place] [address] 2014 [place] [address] documented as of this encounter Visit Diagnoses Not on filedocumented in this encounter Additional Health Concerns Infection Onset Date Last Indicated Resolved Time R/O COVID-19 11/08/2019 11/08/2019 11/11/2019 12:3 1 AM CDT R/O COVID-19 02/01/2020 02/01/2020 02/03/2020 2:00 AM MECHATRONICS ENGINEER documented as of this encounter Care Teams Therapeutic Mentor Relationship Specialty Start Date End Date Jina Banda MD PCP - General Internal Medicine 06/20/16 12/03/21 documented as of this encounter
--- OUTSIDE RECORDS SUMMARY | 2025-01-09 06:31 | XMS_ITS | Encounter Summary ---
Author Organization [facility] Address [address] [place] [address] Care Team Providers Care It Consultant Name Role Phone Jina Banda MD Primary Care Provider Unav ailable Encounter Details Date Type Department Care Team (Late st Contact Info) Description 02/12/2005 Outpatient Historical [facility] Internal Medicine - [facility] [address] [address] [facility] [address] [place] [address] Jina Banda MD NO ADDRESS ON FILE Social History Tobacco Use Types Packs/Day Years Used Date Smoking Tobacco: Never Assessed Comments Unknown Sex and Gender Information Value Date Recorded Sex Assigned at Not on file Legal Sex Female 5:30 AM [place]A MAN Gender Identity Not on file Sexual Orientation Not on file documented as of this encounter Last Filed Vital Signs Vital Sign Reading Time Taken Comments Blood Pressure 114/60 02/12/2005 2:00 PM CUPOLA MAN Pulse 80 02/12/2005 2:00 PM CUPOLA MAN Temperature 37.1 C (98.8 F) 02/12/2005 2:00 PM CUPOLA MAN Respiratory Rate - - Oxygen Saturation - - Inhaled Oxygen Concentration - - Weight 63.5 kg (140 lb) 02/12/2005 2:00 PM CUPOLA MAN Height - - Body Mass Index - - documented in this encounter Plan of Treatment Upcoming Encounters Date Type Department Care Team (Late st Contact Info) Description 09/07/2025 9:15 AM CDT Office Visit [facility] Heart and Vascular At [address] [place] [address] Randal Cooley MD [address] [address] documented as of this encounter Visit Diagnoses Not on filedocumented in this encounter Additional Health Concerns Infection Onset Date Last Indicated Resolved Time R/O COVID-19 11/08/2019 11/08/2019 11/11/2019 12:3 1 AM CDT R/O COVID-19 02/01/2020 02/01/2020 02/03/2020 2:00 AM CUPOLA MAN documented as of this encounter Care Teams It Consultant Relationship Specialty Start Date End Date Jina Banda MD PCP - General Internal Medicine 06/20/16 12/03/21 documented as of this encounter
--- OUTSIDE RECORDS SUMMARY | 2025-01-09 06:31 | XMS_ITS | Encounter Summary ---
Author Organization [facility] Address [address] [place] [address] Care Team Providers Care Director Of Accreditation Name Role Phone Jina Banda MD Primary Care Provider Unav ailable Encounter Details Date Type Department Care Team (Late st Contact Info) Description 06/03/2007 Orders Only [facility] Internal Medicine - [facility] [address] [address] [facility] [address] [place] [address] Jina Banda MD NO ADDRESS ON FILE Social History Tobacco Use Types Packs/Day Years Used Date Smoking Tobacco: Never Assessed Comments Unknown Sex and Gender Information Value Date Recorded Sex Assigned at Not on file Legal Sex Female 5:30 AM EDGE GLUER Gender Identity Not on file Sexual Orientation Not on file documented as of this encounter Progress Notes * Jina Banda MD - 08/19/2007 7:26 PM CDT TIME:02:29 pm PATIENT`S HOME PHONE: PATIENT`S WORK PHONE: PATIENT`S INSURANCE: [facility] WHO TOOK THE CALL: Kecia Diego GENERAL INFORMATION PCP: inocencia. ALTERNATIVE PHONE NUMBER: [phone] WHO CALLED: Patient called. CURRENT ALLERGY LIST: GUAIFENESIN HUMIBID DM [facility] NUMBER: [phone] OTHER INFORMATION: Patient is not currently . [...] pharmacy at 06/03/07 at 03:45 pm. ds documented in this encounter Plan of Treatment Upcoming Encounters Date Type Department Care Team (Late st Contact Info) Description 09/07/2025 9:15 AM CDT Office Visit [facility] Heart and Vascular At [address] [place] [address] Randal Cooley MD [address] [place] [address] 2014 [place] [address] documented as of this encounter Visit Diagnoses Not on filedocumented in this encounter Additional Health Concerns Infection Onset Date Last Indicated Resolved Time R/O COVID-19 11/08/2019 11/08/2019 11/11/2019 12:3 1 AM CDT R/O COVID-19 02/01/2020 02/01/2020 02/03/2020 2:00 AM EDGE GLUER documented as of this encounter Care Teams Director Of Accreditation Relationship Specialty Start Date End Date Jina Banda MD PCP - General Internal Medicine 06/20/16 12/03/21 documented as of this encounter
--- OUTSIDE RECORDS SUMMARY | 2025-01-09 06:31 | XMS_ITS | Encounter Summary ---
Author Organization [facility] Address [address] [place] [address] Care Team Providers Care Picker Box Operator Name Role Phone Jina Banda MD Primary Care Provider Unav ailable Encounter Details Date Type Department Care Team (Late st Contact Info) Description 12/27/2007 Outpatient Historical [facility], [address] Jina Banda MD NO ADDRESS ON FILE Hematuria, Unspecified Social History Tobacco Use Types Packs/Day Years Used Date Smoking Tobacco: Never Alcohol Use Standard Drinks/Week Comments Not Asked 0 (1 standard drink = 0.6 oz pur e alcohol) Comments No Sex and Gender Information Value Date Recorded Sex Assigned at Not on file Legal Sex Female 5:30 AM CHOIR LEADER Gender Identity Not on file Sexual Orientation Not on file documented as of this encounter Plan of Treatment Upcoming Encounters Date Type Department Care Team (Late st Contact Info) Description 09/07/2025 9:15 AM CDT Office Visit [facility] Heart and Vascular At [address] [place] [address] Randal Cooley MD [address] [place] [address] 2014 [place] [address] documented as of this encounter Visit Diagnoses Diagnosis Hematuria, unspecified documented in this encounter Additional Health Concerns Infection Onset Date Last Indicated Resolved Time R/O COVID-19 11/08/2019 11/08/2019 11/11/2019 12:3 1 AM CDT R/O COVID-19 02/01/2020 02/01/2020 02/03/2020 2:00 AM CHOIR LEADER documented as of this encounter Care Teams Picker Box Operator Relationship Specialty Start Date End Date Jina Banda MD PCP - General Internal Medicine 06/20/16 12/03/21 documented as of this encounter
--- OUTSIDE RECORDS SUMMARY | 2025-01-09 06:31 | XMS_ITS | Encounter Summary ---
Author Organization Address [address] [place] [address] Care Team Providers Care Oil Spreader Operator Name Role Phone Jina Banda MD Primary Care Provider Unav ailable Encounter Details Date Type Department Care Team (Late st Contact Info) Description 01/14/2008 Outpatient Historical [facility], [address] Jina Banda MD NO ADDRESS ON FILE Urinary Tract Infection, Site not Specified Social History Tobacco Use Types Packs/Day Years Used Date Smoking Tobacco: Never Alcohol Use Standard Drinks/Week Comments Not Asked 0 (1 standard drink = 0.6 oz pur e alcohol) Comments No Sex and Gender Information Value Date Recorded Sex Assigned at Not on file Legal Sex Female 5:30 AM ASSEMBLER INSULATOR Gender Identity Not on file Sexual Orientation Not on file documented as of this encounter Plan of Treatment Upcoming Encounters Date Type Department Care Team (Late st Contact Info) Description 09/07/2025 9:15 AM CDT Office Visit [facility] Heart and Vascular At [address] [place] [address] Randal Cooley MD [address] [place] [address] 2014 [place] [address] documented as of this encounter Visit Diagnoses Diagnosis Urinary tract infection, site not specified documented in this encounter Additional Health Concerns Infection Onset Date Last Indicated Resolved Time R/O COVID-19 11/08/2019 11/08/2019 11/11/2019 12:3 1 AM CDT R/O COVID-19 02/01/2020 02/01/2020 02/03/2020 2:00 AM ASSEMBLER INSULATOR documented as of this encounter Care Teams Oil Spreader Operator Relationship Specialty Start Date End Date Jina Banda MD PCP - General Internal Medicine 06/20/16 12/03/21 documented as of this encounter
--- OUTSIDE RECORDS SUMMARY | 2025-01-09 06:31 | XMS_ITS | Encounter Summary ---
Author Organization [facility] Address [address] [place] [address] Care Team Providers Care Senior Wind Energy Consultant Name Role Phone Jina Banda MD Primary Care Provider Unav ailable Encounter Details Date Type Department Care Team (Latest Contact Info) Description 11/24/2001 Outpatient Historical [facility] Chato Aguilera MD [address] [place] [address] SCREENING MAMM-MAILG NEOPL-OTHER (Primary Dx) Social History Tobacco Use Types Packs/Day Years Used Date Smoking Tobacco: Never Assessed Comments Unknown Sex and Gender Information Value Date Recorded Sex Assigned at Not on file Legal Sex Female 5:30 AM SUSTAINABILITY MANAGER Gender Identity Not on file Sexual Orientation Not on file documented as of this encounter Plan of Treatment Upcoming Encounters Date Type Department Care Team (Late st Contact Info) Description 09/07/2025 9:15 AM CDT Office Visit [facility] Heart and Vascular At [address] [place] [address] Randal Cooley MD [address] [place] [address] 2014 [place] [address] documented as of this encounter Visit Diagnoses Diagnosis Other screening mammogram- Primary documented in this encounter Additional Health Concerns Infection Onset Date Last Indicated Resolved Time R/O COVID-19 11/08/2019 11/08/2019 11/11/2019 12:3 1 AM CDT R/O COVID-19 02/01/2020 02/01/2020 02/03/2020 2:00 AM SUSTAINABILITY MANAGER documented as of this encounter Care Teams Senior Wind Energy Consultant Relationship Specialty Start Date End Date Jina Banda MD PCP - General Internal Medicine 06/20/16 12/03/21 documented as of this encounter
--- OUTSIDE RECORDS SUMMARY | 2025-01-09 06:31 | XMS_ITS | Encounter Summary ---
Author Organization [facility] Address [address] [place] [address] Care Team Providers Care Readers' Advisory Service Librarian Name Role Phone Jina Banda MD Primary [...] on file Legal Sex Female 5:30 AM LICENSED DISPENSING OPTICIAN Gender Identity Not on file Sexual Orientation Not on file documented as of this encounter Plan of Treatment Upcoming Encounters Date Type Department Care Team (Late st Contact Info) Description 09/07/2025 9:15 AM CDT Office Visit [facility] Heart and Vascular At [address] [place] [address] Randal Cooley MD [address] [place] [address] 2014 [place] [address] documented as of this encounter Visit Diagnoses Diagnosis Acute maxillary sinusitis- Primary documented in this encounter Additional Health Concerns Infection Onset Date Last Indicated Resolved Time R/O COVID-19 11/08/2019 11/08/2019 11/11/2019 12:3 1 AM CDT R/O COVID-19 02/01/2020 02/01/2020 02/03/2020 2:00 AM LICENSED DISPENSING OPTICIAN documented as of this encounter Care Teams Readers' Advisory Service Librarian Relationship Specialty Start Date End Date Jina Banda MD PCP - General Internal Medicine 06/20/16 12/03/21 documented as of this encounter
--- OUTSIDE RECORDS SUMMARY | 2025-01-09 06:31 | XMS_ITS | Encounter Summary ---
Author Organization [facility] Address [address] [place] [address] Care Team Providers Care Cryolite Recovery Operator Name Role Phone Jina Banda MD Primary Care Provider Unav ailable Encounter Details Date Type Department Care Team (Late st Contact Info) Description 06/16/2006 Outpatient Historical [facility] Internal Medicine - [facility] [address] [address] [facility] [address] [place] [address] Jina Banda MD NO ADDRESS ON FILE Social History Tobacco Use Types Packs/Day Years Used Date Smoking Tobacco: Never Assessed Comments Unknown Sex and Gender Information Value Date Recorded Sex Assigned at Not on file Legal Sex Female 5:30 AM UTILITY MECHANIC Gender Identity Not on file Sexual [...] Description 09/07/2025 9:15 AM CDT Office Visit [facility] Heart and V[facility] At [address] [place] [address] Randal Cooley MD [address] [place] [address] [address] [place] [address] documented as of this encounter Visit Diagnoses Not on filedocumented in this encounter Additional Health Concerns Infection Onset Date Last Indicated Resolved Time R/O COVID-19 11/08/2019 11/08/2019 11/11/2019 12:3 1 AM CDT R/O COVID-19 02/01/2020 02/01/2020 02/03/2020 2:00 AM UTILITY MECHANIC documented as of this encounter Care Teams Cryolite Recovery Operator Relationship Specialty Start Date End Date Jina Banda MD PCP - General Internal Medicine 06/20/16 12/03/21 documented as of this encounter
--- OUTSIDE RECORDS SUMMARY | 2025-01-09 06:31 | XMS_ITS | Encounter Summary ---
Author Organization [facility] Address [address] [place] [address] Care Team Providers Care Tanyard Worker Name Role Phone Jina Banda MD [...] on file Legal Sex Female 5:30 AM PAEDIATRIC THORACIC PHYSICIAN Gender Identity Not on file Sexual Orientation Not on file documented as of this encounter Plan of Treatment Upcoming Encounters Date Type Department Care Team (Late st Contact Info) Description 09/07/2025 9:15 AM CDT Office Visit [facility] Heart and Vascular At [address] [place] [address] Randal Cooley MD [address] [place] [address] [address] [place] [address] documented as of this encounter Visit Diagnoses Diagnosis Other screening mammogram- Primary documented in this encounter Additional Health Concerns Infection Onset Date Last Indicated Resolved Time R/O COVID-19 11/08/2019 11/08/2019 11/11/2019 12:3 1 AM CDT R/O COVID-19 02/01/2020 02/01/2020 02/03/2020 2:00 AM PAEDIATRIC THORACIC PHYSICIAN documented as of this encounter Care Teams Tanyard Worker Relationship Specialty Start Date End Date Jina Banda MD PCP - General Internal Medicine 06/20/16 12/03/21 documented as of this encounter
--- OUTSIDE RECORDS SUMMARY | 2025-01-09 06:31 | XMS_ITS | Encounter Summary ---
Author Organization [facility] Address [address] [place] [address] Care Team Providers Care Ac/Dc Rewinder Name Role Phone Jina Banda MD Primary Care Provider Unav ailable Encounter Details Date Type Department Care Team (Late st Contact Info) Description 03/19/2007 Outpatient Historical [facility] [address] [place] [address] Malcolm You MD [address] [place] [address] Social History Tobacco Use Types Packs/Day Years Used Date Smoking Tobacco: Never Assessed Comments Unknown Sex and Gender Information Value Date Recorded Sex Assigned at Not on file Legal Sex Female 5:30 AM AUTO HEADLIGHT MECHANIC Gender Identity Not on file Sexual Orientation Not on file documented as of this encounter Plan of Treatment Upcoming Encounters Date Type Department Care Team (Late Contact Info) Description 09/07/2025 9:15 AM CDT Office Visit [facility] Heart and Vascular At [address] [place] [address] Randal Cooley MD [address] [place] [address] [address] [place], [place] [id number] documented as of this encounter Visit Diagnoses Not on filedocumented in this encounter Additional Health Concerns Infection Onset Date Last Indicated Resolved Time R/O COVID-19 11/08/2019 11/08/2019 11/11/2019 12:3 1 AM CDT R/O COVID-19 02/01/2020 02/01/2020 02/03/2020 2:00 AM AUTO HEADLIGHT MECHANIC documented as of this encounter Care Teams Ac/Dc Rewinder Relationship Specialty Start Date End Date Jina Banda MD PCP - General Internal Medicine 06/20/16 12/03/21 documented as of this encounter
--- OUTSIDE RECORDS SUMMARY | 2025-01-09 06:31 | XMS_ITS | Encounter Summary ---
Author Organization [facility] Address [address] [place] [address] Care Team Providers Care Street Flusher Driver Name Role Phone Jina Banda MD Primary Care Provider Unav ailable Encounter Details Date Type Department Care Team (Late st Contact Info) Description 03/03/2006 Orders Only [facility] Internal Medicine - [facility] [address] [facility] [address] [facility] [address] [place] [address] Tarah Cardenas, ANP [address] [place] [address] Social History Tobacco Use Types Packs/Day Years Used Date Smoking Tobacco: Never Assessed Comments Unknown Sex and Gender Information Value Date Recorded Sex Assigned at Not on file Legal Sex Female 5:30 AM INSPECTOR MACHINE PARTS Gender Identity Not on file Sexual Orientation Not on file documented as of this encounter Progress Notes * Tarah Cardenas, JERZY - 12/29/2007 4:12 AM CDT TIME:03:54 pm PATIENT`S HOME PHONE: PATIENT`S WORK PHONE: PATIENT`S INSURANCE: [facility] [place] [facility] WHO TOOK THE CALL: Nohemy Hernandez M [...] Description 09/07/2025 9:15 AM CDT Office Visit [facility] Heart and Vascular At [address] [place] [address] Randal Cooley MD [address] [place] [address] [address] [place] [address] documented as of this encounter Visit Diagnoses Not on filedocumented in this encounter Additional Health Concerns Infection Onset Date Last Indicated Resolved Time R/O COVID-19 11/08/2019 11/08/2019 11/11/2019 12:3 1 AM CDT R/O COVID-19 02/01/2020 02/01/2020 02/03/2020 2:00 AM INSPECTOR MACHINE PARTS documented as of this encounter Care Teams Street Flusher Driver Relationship Specialty Start Date End Date Jina Banda MD PCP - General Internal Medicine 06/20/16 12/03/21 documented as of this encounter
--- OUTSIDE RECORDS SUMMARY | 2025-01-09 06:31 | XMS_ITS | Encounter Summary ---
Author Organization [facility] Address [address] [place] [address] Care Team Providers Care Engine Lathe Set Up Operator Name Role Phone Jina Banda MD Primary Care Provider Unav ailable Encounter Details Date Type Department Care Team (Late st Contact Info) Description 03/23/2006 Orders Only [facility] Internal Medicine - [facility] [address] [address] [facility] [address] [place] [address] Jina Banda MD NO ADDRESS ON FILE Social History Tobacco Use Types Packs/Day Years Used Date Smoking Tobacco: Never Assessed Comments Unknown Sex and Gender Information Value Date Recorded Sex Assigned at Not on file Legal Sex Female 5:30 AM STARCHER AND TENTER RANGE FEEDER Gender Identity Not on file Sexual Orientation Not on file documented as of this encounter Progress Notes * Jina Banda MD - 08/10/2007 10:20 AM CDT TIME:10:06 am PATIENT`S HOME PHONE: PATIENT`S WORK PHONE: PATIENT`S INSURANCE: [facility] WHO TOOK THE CALL: Tiera March C GENERAL INFORMATION WHO CALLED: Pharmacy called. fax PHARMACY NUMBER: [phone] SECTION 1: REQUESTED ACTION nedra 03/23/06 at [...] Description 09/07/2025 9:15 AM CDT Office Visit [facility] Heart and Vascular At [address] [place] [address] Randal Cooley MD [address] [place] [address] 2014 [place] [address] documented as of this encounter Visit Diagnoses Not on filedocumented in this encounter Additional Health Concerns Infection Onset Date Last Indicated Resolved Time R/O COVID-19 11/08/2019 11/08/2019 11/11/2019 12:3 1 AM CDT R/O COVID-19 02/01/2020 02/01/2020 02/03/2020 2:00 AM STARCHER AND TENTER RANGE FEEDER documented as of this encounter Care Teams Engine Lathe Set Up Operator Relationship Specialty Start Date End Date Jina Banda MD PCP - General Internal Medicine 06/20/16 12/03/21 documented as of this encounter
--- OUTSIDE RECORDS SUMMARY | 2025-01-09 06:31 | XMS_ITS | Encounter Summary ---
Author Organization [facility] Address [address] [place] [address] Care Team Providers Care Cultural Historian Name Role Phone Jina Banda MD Primary Care Provider Unav ailable Encounter Details Date Type Department Care Team (Late st Contact Info) Description 05/26/2007 Outpatient Historical [facility] Internal Medicine - [facility] [address] [address] [facility] [address] [place] [address] Jina Banda MD NO ADDRESS ON FILE Social History Tobacco Use Types Packs/Day Years Used Date Smoking Tobacco: Never Assessed Comments Unknown Sex and Gender Information Value Date Recorded Sex Assigned at Not on file Legal Sex Female 5:30 AM SECURITY ASSESSOR Gender Identity Not on file Sexual Orientation Not on file documented as of this encounter Plan of Treatment Upcoming Encounters Date Type Department Care Team (Late st Contact Info) Description 09/07/2025 9:15 AM CDT Office Visit [facility] Heart and Vascular At [address] [place] [address] Randal Cooley MD [address] [place] [address] 2014 [place] [address] documented as of this encounter Visit Diagnoses Not on filedocumented in this encounter Additional Health Concerns Infection Onset Date Last Indicated Resolved Time R/O COVID-19 11/08/2019 11/08/2019 11/11/2019 12:3 1 AM CDT R/O COVID-19 02/01/2020 02/01/2020 02/03/2020 2:00 AM SECURITY ASSESSOR documented as of this encounter Care Teams Cultural Historian Relationship Specialty Start Date End Date Jina Banda MD PCP - General Internal Medicine 06/20/16 12/03/21 documented as of this encounter
--- OUTSIDE RECORDS SUMMARY | 2025-01-09 06:31 | XMS_ITS | Encounter Summary ---
Author Organization [facility] Address [address] [place] [address] Care Team Providers Care Data Analytics Architect Name Role Phone Jina Banda MD Primary Care Provider Unav ailable Encounter Details Date Type Department Care Team (Late st Contact Info) Description 08/23/2007 Outpatient Historical [facility] Jina Vallejo MD NO ADDRESS ON FILE Injury, Other and Unspecified, Knee, Leg, Ankle, and Foot Social History Tobacco Use Types Packs/Day Years Used Date Smoking Tobacco: Never Assessed Comments Unknown Sex and Gender Information Value Date Recorded Sex Assigned at Not on file Legal Sex Female 5:30 AM TOOL ENGINEER Gender Identity Not on file Sexual Orientation Not on file documented as of this encounter Plan of Treatment Upcoming Encounters Date Type Department Care Team (Late st Contact Info) Description 09/07/2025 9:15 AM CDT Office Visit [facility] Heart and Vascular At [address] [place] [address] Randal Cooley MD [address] [place] [address] 2014 [place] [address] documented as of this encounter Visit Diagnoses Diagnosis Injury, other and unspecified, knee, leg, ankle, and foot documented in this encounter Additional Health Concerns Infection Onset Date Last Indicated Resolved Time R/O COVID-19 11/08/2019 11/08/2019 11/11/2019 12:3 1 AM CDT R/O COVID-19 02/01/2020 02/01/2020 02/03/2020 2:00 AM TOOL ENGINEER documented as of this encounter Care Teams Data Analytics Architect Relationship Specialty Start Date End Date Jina Banda MD PCP - General Internal Medicine 06/20/16 12/03/21 documented as of this encounter
--- OUTSIDE RECORDS SUMMARY | 2025-01-09 06:31 | XMS_ITS | Encounter Summary ---
Author Organization [facility] Address [address] [place] [address] Care Team Providers Care Hearing Therapy Director Name Role Phone Jina Banda MD Primary Care Provider Unav ailable Encounter Details Date Type Department Care Team (Late Contact Info) Description 04/14/2005 Outpatient Historical [facility] [address] [address] Jill Moran MD [address] [place] [id number] Social History Tobacco Use Types Packs/Day Years Used Date Smoking Tobacco: Never Assessed Comments Unknown Sex and Gender Information Value Date Recorded Sex Assigned at Not on file Legal Sex Female 5:30 AM SIDE PANEL PADDER Gender Identity Not on file Sexual Orientation Not on file documented as of this encounter Plan of Treatment Upcoming Encounters Date Type Department Care Team (Late st Contact Info) Description 09/07/2025 9:15 AM CDT Office Visit [facility] Heart and Vascular At [address] [place] [address] Randal Coloey MD [address] [place] [address] 2014 [place] [address] documented as of this encounter Visit Diagnoses Not on filedocumented in this encounter Additional Health Concerns Infection Onset Date Last Indicated Resolved Time R/O COVID-19 11/08/2019 11/08/2019 11/11/2019 12:3 1 AM CDT R/O COVID-19 02/01/2020 02/01/2020 02/03/2020 2:0 0 AM SIDE PANEL PADDER documented as of this encounter Care Teams Hearing Therapy Director Relationship Specialty Start Date End Date Jina Banda MD PCP - General Internal Medicine 06/20/16 12/03/21 documented as of this encounter
--- OUTSIDE RECORDS SUMMARY | 2025-01-09 06:31 | XMS_ITS | Encounter Summary ---
Author Organization [facility] Address [address] [place] [address] Care Team Providers Care Case Reviewer Name Role Phone Jina Banda MD Primary Care Provider Unav ailable Encounter Details Date Type Department Care Team (Late st Contact Info) Description 05/03/2003 Outpatient Historical [facility] Internal Medicine - [facility] [address] [address] [facility] [address] [place] [address] Jina Banda MD NO ADDRESS ON FILE Social History Tobacco Use Types Packs/Day Years Used Date Smoking Tobacco: Never Assessed Comments Unknown Sex and Gender Information Value Date Recorded Sex Assigned at Not on file Legal Sex Female 5:30 AM PRODUCT MANAGER E [employer] Gender Identity Not on file Sexual Orientation Not on file documented as of this encounter Plan of Treatment Upcoming Encounters Date Type Department Care Team (Late st Contact Info) Description 09/07/2025 9:15 AM CDT Office Visit [facility] Heart and Vascular At [address] [place] [address] Randal Cooley MD [address] [place] [address] 2014 [place] [address] documented as of this encounter Visit Diagnoses Not on filedocumented in this encounter Additional Health Concerns Infection Onset Date Last Indicated Resolved Time R/O COVID-19 11/08/2019 11/08/2019 11/11/2019 12:3 1 AM CDT R/O COVID-19 02/01/2020 02/01/2020 02/03/2020 2:00 AM PRODUCT MANAGER E [employer] documented as of this encounter Care Teams Case Reviewer Relationship Specialty Start Date End Date Jina Banda MD PCP - General Internal Medicine 06/20/16 12/03/21 documented as of this encounter
--- OUTSIDE RECORDS SUMMARY | 2025-01-09 06:31 | XMS_ITS | Encounter Summary ---
Author Organization [facility] Address [address] [place] [address] Care Team Providers Care Barrel Rib Matting Machine Operator Name Role Phone Jina Banda MD Primary Care Provider Unav ailable Encounter Details Date Type Department Care Team (Latest Contact Info) Description 02/15/2007 Outpatient Historical [facility] [address] [place] [address] Malcolm You MD [address] [place] [address] [address] [place] [address] Pain in Joint, Pelvic Region and Thigh (Primary Dx) Social History Tobacco Use Types Packs/Day Years Used Date Smoking Tobacco: Never Assessed Comments Unknown Sex and Gender Information Value Date Recorded Sex Assigned at Not on file Legal Sex Female 5:30 AM SENIOR PRODUCT DEVELOPMENT MANAGER Gender Identity Not on file Sexual Orientation Not on file documented as of this encounter Plan of Treatment Upcoming Encounters Date Type Department Care Team (Late st Contact Info) Description 09/07/2025 9:15 AM CDT Office Visit [facility] Heart and Vascular At [address] [place] [address] Randal Cooley MD [address] [place] [address] [address] [place] [address] documented as of this encounter Visit Diagnoses Diagnosis Pain in joint, pelvic region and thigh- Primary documented in this encounter Additional Health Concerns Infection Onset Date Last Indicated Resolved Time R/O COVID-19 11/08/2019 11/08/201911/1011/11/2019 12:3 1 AM CDT R/O COVID-19 02/01/2020 02/01/2020 02/03/2020 2:00 AM SENIOR PRODUCT DEVELOPMENT MANAGER documented as of this encounter Care Teams Barrel Rib Matting Machine Operator Relationship Specialty Start Date End Date Jina Banda MD PCP - General Internal Medicine 06/20/16 12/03/21 documented as of this encounter
--- OUTSIDE RECORDS SUMMARY | 2025-01-09 06:31 | XMS_ITS | Encounter Summary ---
Author Organization [facility] Address [address] [place] [address] Care Team Providers Care Executive Officer Name Role Phone Jina Banda MD Primary Care Provider Unav ailable Encounter Details Date Type Department Care Team (Late st Contact Info) Description 02/28/2006 Outpatient Historical [facility] Internal Medicine - [facility] [address] [address] [facility] [address] [place] [address] Jina Banda MD NO ADDRESS ON FILE Unspecified Hypothyroidism (Primary Dx) Social History Tobacco Use Types Packs/Day Years Used Date Smoking Tobacco: Never Assessed Comments Unknown Sex and Gender Information Value Date Recorded Sex Assigned at Not on file Legal Sex Female 5:30 AM SERVICE EMPLOYEE Gender Identity Not on file Sexual Orientation Not on file documented as of this encounter Plan of Treatment Upcoming Encounters Date Type Department Care Team (Late st Contact Info) Description 09/07/2025 9:15 AM CDT Office Visit [facility] Heart and Vascular At [address] [place] [phone] Randal Cooley MD [address] [place] [address] 2014 [place], [place] [phone] documented as of this encounter Procedures Procedure Name Priority Date/Time Associated Diagnosis Comments CBC WITH DIFFERENTIAL Routine 02/28/2006 9:53 AM SERVICE EMPLOYEE CBC WITH DIFFERENTIAL Routine 02/28/2006 9:53 AM SERVICE EMPLOYEE TSH Routine 02/28/2006 9:53 AM SERVICE EMPLOYEE LIPID PANEL Routine 02/28/2006 9:53 AM SERVICE EMPLOYEE documented in this encounter Results * CBC WITH DIFFERENTIAL (02/28/2006 9:53 AM SERVICE EMPLOYEE) NEUTROPHILS 57 45 - 70 % INTERFAC [...] 0.20 K/uL INTERFACE SYSTEM 02/28/2006 9:53 AM SERVICE EMPLOYEE Jina Banda MD HEMATOLOGY ORDERABLES Final Result INTERFACE SYSTEM Refer to clinic/hospital department * (ABNORMAL) CBC WITH DIFFERENTIAL (02/28/2006 9:53 AM SERVICE EMPLOYEE) Pathologist [facility] WBC 4.6 4.0 - 9.8 K/uL INTERFACE [...] 12.4 fL INTERFACE SYSTEM 02/28/2006 9:53 AM SERVICE EMPLOYEE Jina Banda MD HEMATOLOGY ORDERABLES Final Result Performing Organization Address City/[facility]/ZIP Co de Phone Number INTERFACE SYSTEM Refer to clinic/hospital department * TSH (02/28/2006 9:53 AM SERVICE EMPLOYEE) TSH 2.24 0.27 - 4.20 uU/mL INTERFACE SYSTEM 02/28/2006 9:53 AM SERVICE EMPLOYEE Jina Banda MD CHEMISTRY ORDERABLES Final Result Performing Organization Address [facility] de Phone Number INTERFACE SYSTEM Refer to clinic/hospital department * (ABNORMAL) LIPID PANEL (02/28/2006 9:53 AM SERVICE EMPLOYEE) CHOLESTEROL 179 100 - 199 mg/dL INTERFACE SYSTEM TRIGLYCERIDE 77 10 - 149 mg/dL INTERFACE SYSTEM HDL 79(H) 40 - 59 mg/dL INTERFACE SYSTEM CHOL/HDL RATIO 2.3 2.0 - 5.0 INTER FACE SYSTEM LDL CALCULATED 85 <=99 mg/dL INTERFACE SYSTEM LIPID PANEL COMMENT See Below INTERFACE SYSTEM Comment: The adult ATP and pediatric NCEP classifications for lipids are available on the [facility] Intranet at: [email or web address] Select: Lab Policies and Procedures Select: Reference Ranges - Lipids 02/28/2006 9:53 AM SERVICE EMPLOYEE us Jina Banda MD CHEMISTRY ORDERABLES Final Result Performing Organization Address City/[facility] [address]/[facility] Co de Phone Number INTERFACE SYSTEM Refer to clinic/hospital department documented in this encounter Visit Diagnoses Diagnosis Unspecified hypothyroidism- Primary documented in this encounter Additional Health Concerns Infection Onset Date Last Indicated Resolved Time R/O COVID-19 11/08/2019 11/08/2019 11/11/2019 12:3 1 AM CDT R/O COVID-19 02/01/2020 02/01/2020 02/03/2020 2:00 AM SERVICE EMPLOYEE documented as of this encounter Care Teams Executive Officer Relationship Specialty Start Date End Date Jina Banda MD PCP - General Internal Medicine 06/20/16 12/03/21 documented as of this encounter
--- OUTSIDE RECORDS SUMMARY | 2025-01-09 06:31 | XMS_ITS | Encounter Summary ---
Author Organization [facility] Address [address] [place] [address] Care Team Providers Care Composite Layup Worker Name Role Phone Jina Banda MD Primary Care Provider Unav ailable Encounter Details Date Type Department Care Team (Late st Contact Info) Description 02/25/2006 Outpatient Historical [facility] Internal Medicine - [facility] [address] [address] [facility] [address] [place] [address] Jina Banda MD NO ADDRESS ON FILE Social History Tobacco Use Types Packs/Day Years Used Date Smoking Tobacco: Never Assessed Comments Unknown Sex and Gender Information Value Date Recorded Sex Assigned at Not on file Legal Sex Female 5:30 AM ORNAMENTER HAND Gender Identity Not on file Sexual Orientation Not on file documented as of this encounter Plan of Treatment Upcoming Encounters Date Type Department Care Team (Late st Contact Info) Description 09/07/2025 9:15 AM CDT Office Visit [facility] Heart and Vascular At [address] [place] [address] Randal Cooley MD [address] [place] [address] 2014 [place] [address] documented as of this encounter Visit Diagnoses Not on filedocumented in this encounter Additional Health Concerns Infection Onset Date Last Indicated Resolved Time R/O COVID-19 11/08/2019 11/08/2019 11/11/2019 12:3 1 AM CDT R/O COVID-19 02/01/2020 02/01/2020 02/03/2020 2:00 AM ORNAMENTER HAND documented as of this encounter Care Teams Composite Layup Worker Relationship Specialty Start Date End Date Jina Banda MD PCP - General Internal Medicine 06/20/16 12/03/21 documented as of this encounter
--- OUTSIDE RECORDS SUMMARY | 2025-01-09 06:31 | XMS_ITS | Encounter Summary ---
Author Organization [facility] Address [address] [place] [address] Care Team Providers Care Assisted Living Manager Name Role Phone Jina Banda MD Primary Care Provider Unav ailable Encounter Details Date Type Department Care Team (Late st Contact Info) Description 07/01/2002 Outpatient Historical [facility] Internal Medicine - [place] [address] [address] [facility] [address] [place] [address] Jina Banda MD NO ADDRESS ON FILE Social History Tobacco Use Types Packs/Day Years Used Date Smoking Tobacco: Never Assessed Comments Unknown Sex and Gender Information Value Date Recorded Sex Assigned at Not on file Legal Sex Female 5:30 AM HR DIRECTOR Gender Identity Not on file Sexual Orientation Not on file documented as of this encounter Plan of Treatment Upcoming Encounters Date Type Department Care Team (Late st Contact Info) Description 09/07/2025 9:15 AM CDT Office Visit [facility] Heart and Vascular At [address] [place] [address] Randal Cooley MD [address] [place] [address] 2014 [place] [address] documented as of this encounter Visit Diagnoses Not on filedocumented in this encounter Additional Health Concerns Infection Onset Date Last Indicated Resolved Time R/O COVID-19 11/08/2019 11/08/2019 11/11/2019 12:3 1 AM CDT R/O COVID-19 02/01/2020 02/01/2020 02/03/2020 2:00 AM HR DIRECTOR documented as of this encounter Care Teams Assisted Living Manager Relationship Specialty Start Date End Date Jina Banda MD PCP - General Internal Medicine 06/20/16 12/03/21 documented as of this encounter
--- OUTSIDE RECORDS SUMMARY | 2025-01-09 06:31 | XMS_ITS | Encounter Summary ---
Author Organization [facility] Address [address] [place] [address] Care Team Providers Care Senior C Software Engineer Name Role Phone Jina Banda MD Primary Care Provider Unav ailable Encounter Details Date Type Department Care Team (Late st Contact Info) Description 05/26/2007 Orders Only [facility] Internal Medicine - [facility] [address] [address] [facility] [address] [place] [address] Jina Banda MD NO ADDRESS ON FILE Social History Tobacco Use Types Packs/Day Years Used Date Smoking Tobacco: Never Assessed Comments Unknown Sex and Gender Information Value Date Recorded Sex Assigned at Not on file Legal Sex Female 5:30 AM CAR DISTRIBUTOR Gender Identity Not on file Sexual Orientation [...] splenomegaly. ASSESSMENT/PLAN: 244.9-HYPOTHYROIDISM LAB ORDERS: Order number: [id number] Test Ordered: TSH 899 462-PHARYNGITIS MEDICATIONS: Pt states that amoxicillin causes diarrhea but she tolerates this well. CECLOR ORAL CAPSULE CONVENTIONAL 250 MG, 1 Three Times A Day, 30 Dispensed, status: NEW PRESCRIPTION, 05/26/2007. LAB ORDERS: Order number: [id number] Test Ordered: CBC (INCLUDES DIFF/PLT) 6399 SPECIALTY REFERRAL: GASTROENTEROLOGY Dr. Thelma Haile ph: [phone] fax: [phone].for further evaluation of intermittent abdominal pain. RETURN VISIT : Instructed to call if not improving. Electronically Signed by: Jina Banda MD on Saturday, May 26, 2007 documented in this encounter Plan of Treatment Upcoming Encounters Date Type Department Care Team (Late st Contact Info) Description 09/07/2025 9:15 AM CDT Office Visit [facility] Heart and Vascular At [address] [place] [address] Randal Cooley MD [address] [place] [address] [address] [place] [address] documented as of this encounter Visit Diagnoses Not on filedocumented in this encounter Additional Health Concerns Infection Onset Date Last Indicated Resolved Time R/O COVID-19 11/08/2019 11/08/2019 11/11/2019 12:3 1 AM CDT R/O COVID-19 02/01/2020 02/01/2020 02/03/2020 2:00 AM CAR DISTRIBUTOR documented as of this encounter Care Teams Senior C Software Engineer Relationship Specialty Start Date End Date Jina Banda MD PCP - General Internal Medicine 06/20/16 12/03/21 documented as of this encounter
--- OUTSIDE RECORDS SUMMARY | 2025-01-09 06:31 | XMS_ITS | Encounter Summary ---
Author Organization [facility] Address [address] [place] [address] Care Team Providers Care Line Installer Name Role Phone Jina Banda MD Primary Care Provider Unav ailable Encounter Details Date Type Department Care Team (Late st Contact Info) Description 12/03/2004 Outpatient Historical [facility] Charo Haynes [address] [facility] [address] [place] [address] SCREENING MAMM-MAILG NEOPL NEC (Primary Dx) Social History Tobacco Use Types Packs/Day Years Used Date Smoking Tobacco: Never Assessed Comments Unknown Sex and Gender Information Value Date Recorded Sex Assigned at Not on file Legal Sex Female 5:30 AM PLASTIC PRESS MOLDER Gender Identity Not on file Sexual Orientation Not on file documented as of this encounter Plan of Treatment Upcoming Encounters Date Type Department Care Team (Late st Contact Info) Description 09/07/2025 9:15 AM CDT Office Visit [facility] Heart and Vascular At [address] [place] [address] Randal Cooley MD [address] [place] [address] [address] [place], [place] [phone] documented as of this encounter Visit Diagnoses Diagnosis Other screening mammogram- Primary documented in this encounter Additional Health Concerns Infection Onset Date Last Indicated Resolved Time R/O COVID-19 11/08/2019 11/08/2019 11/11/2019 12:3 1 AM CDT R/O COVID-19 02/01/2020 02/01/2020 02/03/2020 2:00 AM PLASTIC PRESS MOLDER documented as of this encounter Care Teams Line Installer Relationship Specialty Start Date End Date Jina Banda MD PCP - General Internal Medicine 06/20/16 12/03/21 documented as of this encounter
--- OUTSIDE RECORDS SUMMARY | 2025-01-09 06:31 | XMS_ITS | Encounter Summary ---
Author Organization [facility] Address [address] [place] [address] Care Team Providers Care Value Advisor Name Role Phone Jina Banda MD [...] on file Legal Sex Female 5:30 AM CUTTING MACHINE OPERATOR HELPER Gender Identity Not on file Sexual Orientation Not on file documented as of this encounter Plan of Treatment Upcoming Encounters Date Type Department Care Team (Late st Contact Info) Description 09/07/2025 9:15 AM CDT Office Visit [facility] Heart and Vascular At [address] [place] [address] Randal Coloey MD [address] [place] [address] 2014 [place] [address] documented as of this encounter Visit Diagnoses Diagnosis Pain in joint, pelvic region and thigh- Primary documented in this encounter Additional Health Concerns Infection Onset Date Last Indicated Resolved Time R/O COVID-19 11/08/2019 11/08/2019 11/11/2019 12:3 1 AM CDT R/O COVID-19 02/01/2020 02/01/2020 02/03/2020 2:00 AM CUTTING MACHINE OPERATOR HELPER documented as of this encounter Care Teams Value Advisor Relationship Specialty Start Date End Date Jina Banda MD PCP - General Internal Medicine 06/20/16 12/03/21 documented as of this encounter
--- OUTSIDE RECORDS SUMMARY | 2025-01-09 06:31 | XMS_ITS | Encounter Summary ---
Author Organization [facility] Address [address] [place] [address] Care Team Providers Care Strip Mine Supervisor Name Role Phone Jina Banda MD Primary Care Provider Unav ailable Encounter Details Date Type Department Care Team (Late st Contact Info) Description 02/25/2006 Orders Only [facility] Internal Medicine - [facility] [address] [address] [facility] [address] [place] [address] Jina Banda MD NO ADDRESS ON FILE Social History Tobacco Use Types Packs/Day Years Used Date Smoking Tobacco: Never Assessed Comments Unknown Sex and Gender Information Value Date Recorded Sex Assigned at Not on file Legal Sex Female 5:30 AM BUSINESS UNIT LEADER Gender Identity Not on file Sexual [...] loss. Is not followed by [facility]. Saw director property and had normal exam. ENT: No hearing [...] tightening. ASSESSMENT/PLAN: 244.9-HYPOTHYROIDISM LAB ORDERS: Order number: [id number] Test Ordered: LIPID PANEL 7600 Order number: [id number] Test Ordered: TSH 899 Order number: [id number] Test Ordered: GLUCOSE 483 280.9-IRON DEFICIENCY ANEMIA LAB ORDERS: Order number: [id number] Test Ordered: CBC (INCLUDES DIFF/PLT) 6399 719.45-PAIN JOINT HIP ASSESSMENT: Likely more of bursitis. If does not resolve, refer to orthopedist. LAB ORDERS: Order number: [id number] Test Ordered: XRAY HIP LEFT V70.0-ROUTINE GENERAL MEDICAL EXAMINATION V06.5-NEED FOR VACC TETANUS-DIPHTHERIA (TD) LAB ORDERS: Order number: [id number] Test Ordered: INJ-TETANUS AND DIPTHERIA TOXOID 64202 HEALTH MAINTENANCE: LAST PAP DATE: . LAST MAMMOGRAM DATE: . LAST TD: today PREVENTIVE COUNSELING The patient was counseled regarding regular self- examination of the breasts on a monthly basis, regular sustained exercise for at least 30 minutes 3-4 times per week, adult immunizations, routine screening interval for mammogram as recommended by the [place] [employer] and ACOG, importance of regular [...] [facility] V[facility] At [address] [place] [address] Randal Cooley MD [address] [place] [address] 2014 [place] [address] documented as of this encounter Visit Diagnoses Not on filedocumented in this encounter Additional Health Concerns Infection Onset Date Last Indicated Resolved Time R/O COVID-19 11/08/2019 11/08/2019 11/11/2019 12:3 1 AM CDT R/O COVID-19 02/01/2020 02/01/2020 02/03/2020 2:00 AM BUSINESS UNIT LEADER documented as of this encounter Care Teams Strip Mine Supervisor Relationship Specialty Start Date End Date Jina Banda MD PCP - General Internal Medicine 06/20/16 12/03/21 documented as of this encounter
--- OUTSIDE RECORDS SUMMARY | 2025-01-09 06:31 | XMS_ITS | Encounter Summary ---
Author Organization [facility] Address [address] [place] [address] Care Team Providers Care Microbiology Coordinator Name Role Phone Jina Banda MD Primary Care Provider Unav ailable Encounter Details Date Type Department Care Team (Late st Contact Info) Description 12/20/2001 Outpatient Historical [facility] Internal Medicine - [facility] [address] [address] [facility] [address] [place] [address] Jina Banda MD NO ADDRESS ON FILE Social History Tobacco Use Types Packs/Day Years Used Date Smoking Tobacco: Never Assessed Comments Unknown Sex and Gender Information Value Date Recorded Sex Assigned at Not on file Legal Sex Female 5:30 AM HAND COPER Gender Identity Not on file Sexual Orientation Not on file documented as of this encounter Plan of Treatment Upcoming Encounters Date Type Department Care Team (Late st Contact Info) Description 09/07/2025 9:15 AM CDT Office Visit [facility] Heart and Vascular At [address] [place] [address] Randal Cooley MD [address] [place] [address] 2014 [place] [address] documented as of this encounter Visit Diagnoses Not on filedocumented in this encounter Additional Health Concerns Infection Onset Date Last Indicated Resolved Time R/O COVID-19 11/08/2019 11/08/2019 11/11/2019 12:3 1 AM CDT R/O COVID-19 02/01/2020 02/01/2020 02/03/2020 2:00 AM HAND COPER documented as of this encounter Care Teams Microbiology Coordinator Relationship Specialty Start Date End Date Jina Banda MD PCP - General Internal Medicine 06/20/16 12/03/21 documented as of this encounter
--- OUTSIDE RECORDS SUMMARY | 2025-01-09 06:31 | XMS_ITS | Encounter Summary ---
Author Organization [facility] Address [address] [place] [address] Care Team Providers Care Paint Process Engineer Name Role Phone Jnia Banda MD Primary Care Provider Unav ailable Encounter Details Date Type Department Care Team (Late st Contact Info) Description 02/25/2006 Outpatient Historical [facility] Internal Medicine - [facility] [address] [address] [facility] [address] [place] [address] Jina Banda MD NO ADDRESS ON FILE Social History Tobacco Use Types Packs/Day Years Used Date Smoking Tobacco: Never Assessed Comments Unknown Sex and Gender Information Value Date Recorded Sex Assigned at Not on file Legal Sex Female 5:30 AM FIRE PREVENTION OFFICER Gender Identity Not on file Sexual Orientation Not on file documented as of this encounter Plan of Treatment Upcoming Encounters Date Type Department Care Team (Late st Contact Info) Description 09/07/2025 9:15 AM CDT Office Visit [facility] Heart and Vascular At [address] [place] [address] Randal Cooley MD [address] [place] [address] 2014 [place] [address] documented as of this encounter Visit Diagnoses Not on filedocumented in this encounter Additional Health Concerns Infection Onset Date Last Indicated Resolved Time R/O COVID-19 11/08/2019 11/08/2019 11/11/2019 12:3 1 AM CDT R/O COVID-19 02/01/2020 02/01/2020 02/03/2020 2:00 AM FIRE PREVENTION OFFICER documented as of this encounter Care Teams Paint Process Engineer Relationship Specialty Start Date End Date Jina Banda MD PCP - General Internal Medicine 06/20/16 12/03/21 documented as of this encounter
--- OUTSIDE RECORDS SUMMARY | 2025-01-09 06:31 | XMS_ITS | Encounter Summary ---
Author Organization [facility] Address [address] [place] [address] Care Team Providers Care Urologic Surgeon Name Role Phone Jina Banda MD Primary Care Provider Unav ailable Encounter Details Date Type Department Care Team (Late st Contact Info) Description 05/13/2004 Outpatient Historical [facility] Internal [facility] - [facility] [address] [address] [facility] [address] [place] [address] Jina Banda MD NO ADDRESS ON FILE Social History Tobacco Use Types Packs/Day Years Used Date Smoking Tobacco: Never Assessed Comments Unknown Sex and Gender Information Value Date Recorded Sex Assigned at Not on file Legal Sex Female 5:30 AM ACCREDITED PHARMACY TECHNICIAN Gender Identity Not on file Sexual Orientation Not on file documented as of this encounter Plan of Treatment Upcoming Encounters Date Type Department Care Team (Late st Contact Info) Description 09/07/2025 9:15 AM CDT Office Visit [facility] Heart and Vascular At [address] [place] [address] Randal Cooley MD [address] [place] [address] 2014 [place] [address] documented as of this encounter Visit Diagnoses Not on filedocumented in this encounter Additional Health Concerns Infection Onset Date Last Indicated Resolved Time R/O COVID-19 11/08/2019 11/08/2019 11/11/2019 12:3 1 AM CDT R/O COVID-19 02/01/2020 02/01/2020 02/03/2020 2:00 AM ACCREDITED PHARMACY TECHNICIAN documented as of this encounter Care Teams Urologic Surgeon Relationship Specialty Start Date End Date Jina Banda MD PCP - General Internal Medicine 06/20/16 12/03/21 documented as of this encounter
--- OUTSIDE RECORDS SUMMARY | 2025-01-09 06:31 | XMS_ITS | Encounter Summary ---
Author Organization [facility] Address [address] [place] [address] Care Team Providers Care Surgical Consultant Name Role Phone Jina Banda MD Primary Care Provider Unav ailable Encounter Details Date Type Department Care Team (Late st Contact Info) Description 08/02/2014 Nurse Triage Report [facility] ABSTRACTION Sheeba Sotomayor, RN [address] [address] Social History Tobacco Use Types Packs/Day Years Used Date Smoking Tobacco: Never Smokeless Tobacco: Never Alcohol Use Standard Drinks/Week Comments No 0 (1 standard drink = 0.6 oz pur e alcohol) Comments No Sex and Gender Information Value Date Recorded Sex Assigned at Not on file Legal Sex Female 5:30 AM WEB DEVELOPMENT DIRECTOR Gender Identity Not on file Sexual [...] Banda <<<<<<<< TRIAGE NOTE >>>>>>>> Triage Note: Supervisor Engraving Sheeba Sotomayor added this note on Aug 02 2014 11:41PM: Spouse is in an [id number] ED and requesting information on pre-auth for [...] [facility] Heart and Vascular At [address] [place] [address] Randal Cooley MD [address] [place] [address] 2014 [place] [address] documented as of this encounter Visit Diagnoses Not on filedocumented in this encounter Additional Health Concerns Infection Onset Date Last Indicated Resolved Time R/O COVID-19 11/08/2019 11/08/2019 11/11/2019 12:3 1 AM CDT R/O COVID-19 02/01/2020 02/01/2020 02/03/2020 2:00 AM WEB DEVELOPMENT DIRECTOR documented as of this encounter Care Teams Surgical Consultant Relationship Specialty Start Date End Date Jina Banda MD PCP - General Internal Medicine 06/20/16 12/03/21 documented as of this encounter
--- OUTSIDE RECORDS SUMMARY | 2025-01-09 06:31 | XMS_ITS | Encounter Summary ---
Author Organization [facility] Address [address] [place] [address] Care Team Providers Care Irrigation Service Technician Name Role Phone Jina Banda MD Primary Care Provider Unav ailable Encounter Details Date Type Department Care Team (Late st Contact Info) Description 09/07/2006 Outpatient Historical [facility] Internal Medicine - [facility] [id number] [facility] [address] [place] [address] Jina Banda MD NO ADDRESS ON FILE Social History Tobacco Use Types Packs/Day Years Used Date Smoking Tobacco: Never Assessed Comments Unknown Sex and Gender Information Value Date Recorded Sex Assigned at Not on file Legal Sex Female 5:30 AM MACHINE WHITENER Gender Identity Not on file Sexual Orientation [...] Description 09/07/2025 9:15 AM CDT Office Visit [facility] At [address] [place] [address] Randal Cooley MD [address] [address] documented as of this encounter Visit Diagnoses Not on filedocumented in this encounter Additional Health Concerns Infection Onset Date Last Indicated Resolved Time R/O COVID-19 11/08/2019 11/08/2019 11/11/2019 12:3 1 AM CDT R/O COVID-19 02/01/2020 02/01/2020 02/03/2020 2:00 AM MACHINE WHITENER documented as of this encounter Care Teams Irrigation Service Technician Relationship Specialty Start Date End Date Jina Banda MD PCP - General Internal Medicine 06/20/16 12/03/21 documented as of this encounter
--- OUTSIDE RECORDS SUMMARY | 2025-01-09 06:31 | XMS_ITS | Encounter Summary ---
Author Organization [facility] Address [address] [place] [address] Care Team Providers Care Resident Inspector Name Role Phone Jina Banda MD [...] on file Legal Sex Female 5:30 AM TILE AND MOTTLE SUPERVISOR Gender Identity Not on file Sexual Orientation Not on file documented as of this encounter Plan of Treatment Upcoming Encounters Date Type Department Care Team (Late st Contact Info) Description 09/07/2025 9:15 AM CDT Office Visit [facility] Heart and Vascular At [address] [place] [address] Randal Cooley MD [address] [place] [address] [address] [place] [address] documented as of this encounter Visit Diagnoses Diagnosis Iron deficiency anemia, unspecified documented in this encounter Additional Health Concerns Infection Onset Date Last Indicated Resolved Time R/O COVID-19 11/08/2019 11/08/2019 11/11/2019 12:3 1 AM CDT R/O COVID-19 02/01/2020 02/01/2020 02/03/2020 2:00 AM TILE AND MOTTLE SUPERVISOR documented as of this encounter Care Teams Resident Inspector Relationship Specialty Start Date End Date Jina Banda MD PCP - General Internal Medicine 06/20/16 12/03/21 documented as of this encounter
--- OUTSIDE RECORDS SUMMARY | 2025-01-09 06:31 | XMS_ITS | Encounter Summary ---
Author Organization [facility] Address [address] [place] [address] Care Team Providers Care Stoneworking Belt Sander Name Role Phone Jina Banda MD Primary Care Provider Unav ailable Encounter Details Date Type Department Care Team (Late st Contact Info) Description 07/19/2002 Outpatient Historical [facility] Internal Medicine - [facility] [address] [id number] [facility] [address] [place] [address] Jina Banda MD NO ADDRESS ON FILE Social History Tobacco Use Types Packs/Day Years Used Date Smoking Tobacco: Never Assessed Comments Unknown Sex and Gender Information Value Date Recorded Sex Assigned at Not on file 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 Gender Identity Not on file Sexual Orientation Not on file documented as of this encounter Plan of Treatment Upcoming Encounters Date Type Department Care Team (Late st Contact Info) Description 09/07/2025 9:15 AM CDT Office Visit [facility] Heart and Vascular At [address] [place] [address] Randal Cooley MD [address] [place] [address] [address] [place] [address] documented as of this encounter Visit Diagnoses Not on filedocumented in this encounter Additional Health Concerns Infection Onset Date Last Indicated Resolved Time R/O COVID-19 11/08/2019 11/08/2019 11/11/2019 12:3 1 AM CDT R/O COVID-19 02/01/2020 02/01/2020 02/03/2020 2:00 AM RUBBER MIXER documented as of this encounter Care Teams Stoneworking Belt Sander Relationship Specialty Start Date End Date Jina Banda MD PCP - General Internal Medicine 06/20/16 12/03/21 documented as of this encounter
--- OUTSIDE RECORDS SUMMARY | 2025-01-09 06:31 | XMS_ITS | Encounter Summary ---
Author Organization [facility] Address [address] [place] [address] Care Team Providers Care Assemblies And Installations Inspector Name Role Phone Jina Banda MD Primary Care Provider Unav ailable Encounter Details Date Type Department Care Team (Late st Contact Info) Description 05/26/2007 Outpatient Historical [facility] Internal Medicine - [facility] [address] [address] [facility] [address] [place] [address] Jina Banda MD NO ADDRESS ON FILE Social History Tobacco Use Types Packs/Day Years Used Date Smoking Tobacco: Never Assessed Comments Unknown Sex and Gender Information Value Date Recorded Sex Assigned at Not on file 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 Gender Identity Not on file Sexual Orientation Not on file documented as of this encounter Plan of Treatment Upcoming Encounters Date Type Department Care Team (Late st Contact Info) Description 09/07/2025 9:15 AM CDT Office Visit [facility] Heart and Vascular At [address] [place] [address] Randal Cooley MD [address] [place] [address] [address] [place] [address] documented as of this encounter Visit Diagnoses Not on filedocumented in this encounter Additional Health Concerns Infection Onset Date Last Indicated Resolved Time R/O COVID-19 11/08/2019 11/08/2019 11/11/2019 12:3 1 AM CDT R/O COVID-19 02/01/2020 02/01/2020 02/03/2020 2:00 AM TRUCK ASSEMBLER documented as of this encounter Care Teams Assemblies And Installations Inspector Relationship Specialty Start Date End Date Jina Banda MD PCP - General Internal Medicine 06/20/16 12/03/21 documented as of this encounter
--- OUTSIDE RECORDS SUMMARY | 2025-01-09 06:31 | XMS_ITS | Encounter Summary ---
Author Organization [facility] Address [address] [place] [address] Care Team Providers Care Cement Cutter Name Role Phone Jina Banda MD Primary Care Provider Unav ailable Encounter Details Date Type Department Care Team (Late st Contact Info) Description 01/22/2006 Outpatient Historical [facility] Charo Haynes [address] 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 Gender Identity Not on file Sexual Orientation Not on file documented as of this encounter Plan of Treatment Upcoming Encounters Date Type Department Care Team (Late st Contact Info) Description 09/07/2025 9:15 AM CDT Office Visit [facility] Heart and Vascular At [address] [place] [address] Randal Cooley MD [address] [place] [address] [address] [place] [address] documented as of this encounter Visit Diagnoses Diagnosis Other screening mammogram- Primary documented in this encounter Additional Health Concerns Infection Onset Date Last Indicated Resolved Time R/O COVID-19 11/08/2019 11/08/2019 11/11/2019 12:3 1 AM CDT R/O COVID-19 02/01/2020 02/01/202002/03/2020 2:00 AM ADDICTION PROFESSIONAL documented as of this encounter Care Teams Cement Cutter Relationship Specialty Start Date End Date Jina Banda MD PCP - General Internal Medicine 06/20/16 12/03/21 documented as of this encounter
[2025-01-09 07:12] LABS: Hematocrit 36.3 % (37.0-47.0); Hemoglobin 11.7 g/dL (12.0-15.0); Immature Granulocyte Percent A 0.5 % (0-0.5); Lymphocytes Absolute Auto 1.04 K/mm3 (0.9-3.2); Mean Corpuscular HGB Conc 32.2 g/dl (32-36); Mean Corpuscular Hemoglobin 27.9 pg (26-34); Mean Corpuscular Volume 86.6 fl (80-100); Nucleated Red Blood Cells Absolute Auto 0.000 K/mm3 (0.0-0.012); Nucleated Red Blood Cells Perc 0.0 % (0.0-0.2); Platelet Count Result 281 k/mm3 (150-375); Red Blood Count 4.19 M/mm3 (4.2-5.4); White Blood Count 4.2 K/mm3 (4.5-10.0)
--- NOTE | 2025-01-09 07:34 | ECG_ITS ---
Test Date: 2025-01-09 07:48:52 Measurements Intervals [place] Rate: 58 P: 48 IA: 141 QRS: 47 QRSD: 90 T: 53 QT: 448 QTc: 444 Interpretive Statements SINUS BRADYCARDIA BASELINE ARTIFACT- I, II, III, AVR, AVL, AVF, V4-V5 BORDERLINE ECG Compared to ECG 02/14/2024 05:35:08 Atrial fibrillation no longer present Electronically Signed On 01-09-2025 07:59:51 CDT by Kalin Ross D.O.
[2025-01-09 07:35] LABS: Add Urine Microscopic? YES; Appearance Urine Clear (Clear); Glucose Urine UA Negative (Negative); Leukocyte Esterase Ur Trace LEU/UL (Negative); Nitrate Urine Negative (Negative); Non Pathogenic Casts 0-2; Specific Grav Ur 1.013 (1.001-1.035)
[2025-01-09 07:44] LABS: Alanine Aminotransferase 28 U/L (6-35); Albumin Level 4.3 g/dL (3.5-5.1); Alkaline Phosphatase 74 U/L (38-126); Anion Gap 10 mmol/L (4-12); Aspartate Amino Transferase 34 U/L (14-36); Bilirubin,Total 0.6 mg/dL (0.2-1.3); Blood Urea Nitrogen 16 mg/dL (7-17); Calcium 9.6 mg/dL (8.4-10.2); Carbon Dioxide 23 mmol/L (22-30); Chloride 107 mmol/L (98-107); Estimated Glomerular Filt Rate > 60; Glucose 102 mg/dL (65-110); Lipase 192 U/L (23-300); Potassium 4.3 mmol/L (3.4-5.0); Sodium 140 mmol/L (137-145); Total Protein 7.5 g/dL (6.3-8.2)
[2025-01-09] MEDS: SODIUM CHLORIDE 0.9% IV 1,000 ML 999 ML IV CONT (07:44)
[2025-01-09] MEDS: ONDANSETRON INJ 4 MG/2 ML VIAL IV PUSH (07:45)
[2025-01-09] MEDS: MECLIZINE HCL 25 MG TABLET PO (07:48)
[2025-01-09 08:15] LABS: Troponin I < 0.012 ng/mL (0.000-0.034)
--- NOTE | 2025-01-09 08:47 | ED.GENADULT ---
HPI - General Adult General Chief complaint: Unspecified Stated complaint: symptoms of C. diff-dizzy, loose bowel, N/V Time Seen by Provider: 01/09/25 07:03 Source: patient, RN notes reviewed and old records reviewed Mode of arrival: ambulatory Limitations: no limitations History of Present Illness HPI narrative: THis is a 64 year old female with history of c diff and vertigo who presents for evaluation of dizziness. She states that she was diagnosed with c diff several months ago. She has been having normal bowel movement . She reports this morning when she was turning in bed she developed dizziness that is prescribed as vertigo. She reports nausea. She is concerned that she has c diff because she had dizziness with her previous episode. She denies chest pain, abdominal pain or diarrhea. She is taking antibiotics for a uti. Related Data Home Medications ?Medication ?Instructions ?Recorded ?Confirmed ?Last Taken ?Type aspirin 81 mg tablet 81 mg PO DAILY 05/08/20 01/05/25 11/28/24 History cholecalciferol (vitamin D3) 25 25 mcg PO DAILY 05/09/20 01/05/25 Unknown History mcg (1,000 unit) capsule (Vitamin D3) metoprolol tartrate 25 mg tablet 12.5 mg PO BID 06/11/20 01/05/25 Unknown History atorvastatin 40 mg tablet 40 mg PO DAILY 12/19/21 01/05/25 Unknown History multivitamin 1 tablet PO DAILY 02/27/23 01/05/25 Unknown History fluticasone 250 mcg-salmeterol 50 1 inh inhalation BID PRN allergic 03/02/24 01/05/25 Unknown History mcg/dose blistr powdr for symptoms inhalation (Advair Diskus) cranberry fruit concentrate 250 mg 250 mg PO TID 12/06/24 01/05/25 Unknown History chewable tablet (Azo Cranberry) Allergies Allergy/AdvReac Type Severity Reaction Status Date / Time codeine Allergy Hives Verified 01/09/25 07:50 hydrocodone Allergy Hives Verified 01/09/25 07:50 pneumococcal vaccine (From Allergy Hives Verified 01/09/25 07:50 Pneumovax-23) Sulfa (Sulfonamide Allergy Hives Verified 01/09/25 07:50 Antibiotics) doxycycline AdvReac headaches Verified 01/09/25 07:50 morphine AdvReac nausea/vomi Verified 01/09/25 07:50 ting PMFSH Past Medical History Medical History Intractable nausea and vomiting URI (upper respiratory infection) New onset a-fib Atrial fibrillation with rapid ventricular response Sacroiliitis Trochanteric bursitis of left hip Trochanteric bursitis of right hip Lumbar stenosis Lumbar spondylosis Lumbar radiculopathy Gross hematuria Colitis Hospital discharge follow-up Cervical radiculopathy Microscopic colitis Acute sinusitis Cough External hemorrhoids Localized swelling, mass and lump, unspecified Heart disease Anemia Pleuritic chest pain Anxiety Depression Hypothyroidism History of urinary tract infection Irritable bowel syndrome Dyslipidemia Hypertension Coronary artery disease Migraines Acute hypokalemia Pneumonia due to COVID-19 virus Hypokalemia Abnormal chest x-ray COVID-19 (Unknown) Surgical History Surgical History H/O excision of dermoid cyst 03/22/2014 09/06/2018 History of hernia repair 08/06/2016 History of heart artery stent Family History Family History Father Heart disease Mother Hypertension Depression Cerebrovascular accident Other Inflammatory bowel disease Social History Social History Social History: The patient is and lives in [place] with her . She is a lifelong nonsmoker. No alcohol or illicit substance abuse. Her Josh is her surrogate decision maker and she wishes to be a full code. Caffeine-daily Smoking status: Never smoker Second hand tobacco smoke exposure: Yes Alcohol intake: never Substance use: never Substance use type: does not use Do You Feel Safe in your Home?: Yes Lack of Transportation: No Lack of Food: Never True Current Housing: I Have Housing Concerned About Future Housing: No Difficulty Paying Gas/Electric Bills: No Difficulty Paying for Meds: No Currently Unemployed: No Education: High School Diploma/GED Difficulty w/ Childcare or Family Care: No Living arrangements: with family Additional living arrangements comments: Spiritual care concerns: No Exam Narrative: GENERAL: Well-appearing, well-nourished, and in no acute distress. HEAD: Normocephalic, atraumatic EYES: PERRLA and EOMI, conjunctiva clear without discharge, no nystagmus EARS: TM's clear bilaterally without erythema or dullness NOSE: Nares clear, no rhinorrhea or epistaxis THROAT:Mucous membranes moist, Oropharynx normal without erythema, exudate, peritonsillar swelling or fluctuance NECK: Supple, without lymphadenopathy or mass RESPIRATORY: No respiratory distress, Airway patent, Respirations non-labored, Clear to auscultation without rales, rhonchi or wheeze HEART: Regular rate and rhythm. No murmur heard. Normal peripheral pulses. ABDOMEN: Soft, nontender, nondistended, normal active bowel sounds. No masses. No rebound or guarding, No organomegaly. EXTREMITIES: No edema, normal strength with full range of motion. SKIN: Warm, dry, normal color without rash NEURO: Alert and oriented x3. CN 2-12 grossly intact. No focal deficits. normal finger to nose. normal heel to lund PSYCH: Normal mood and affect. Course Reevaluation(s) Reevaluation #1: Patient states she feels better. She was able to get walk without dizziness. She was given zofran and meclizine. Seems to be peripheral vertigo that has now resolved. No sign of CVA. She is not having diarrhea so unlikely c diff. Date: 01/09/25 Time: 08:47 Vital Signs Vital signs: Vital Signs Temperature 98.5 F 01/09/25 06:32 Pulse Rate 78 01/09/25 06:32 Respiratory Rate 20 01/09/25 06:32 Blood Pressure 148/75 H 01/09/25 06:32 Pulse Oximetry 100 01/09/25 06:32 Oxygen Delivery Room Air 01/09/25 06:32 Temperature 97.7 F 01/09/25 09:11 Pulse Rate 65 01/09/25 09:11 Respiratory Rate 20 01/09/25 09:11 Blood Pressure 127/75 01/09/25 09:11 Pulse Oximetry 98 01/09/25 09:11 Oxygen Delivery Room Air 01/09/25 06:32 Medical Decision Making Vital Signs Vital Signs: Vital Signs Temperature 98.5 F 01/09/25 06:32 Pulse Rate 78 01/09/25 06:32 Respiratory Rate 20 01/09/25 06:32 Blood Pressure 148/75 H 01/09/25 06:32 Pulse Oximetry 100 01/09/25 06:32 Oxygen Delivery Room Air 01/09/25 06:32 Temperature 97.7 F 01/09/25 09:11 Pulse Rate 65 01/09/25 09:11 Respiratory Rate 20 01/09/25 09:11 Blood Pressure 127/75 01/09/25 09:11 Pulse Oximetry 98 01/09/25 09:11 Oxygen Delivery Room Air 01/09/25 06:32 Lab Data Lab results reviewed: Yes I reviewed the patient's lab results. 01/09/25 07:07 01/09/25 07:07 Labs: Lab Results 01/09/25 01/09/25 Range/Units 07:07 07:22 WBC 4.2 L (4.5-10.0) K/mm3 RBC 4.19 L (4.2-5.4) M/mm3 Hgb 11.7 L (12.0-15.0) g/dL Hct 36.3 L (37.0-47.0) % MCV 86.6 (80-100) fl MCH 27.9 (26-34) pg MCHC 32.2 (32-36) g/dl RDW 13.6 (11.5-14.5) % Plt Count 281 (150-375) k/mm3 MPV 9.6 (7.4-10.4) fl Immature Gran % (Auto) 0.5 (0-0.5) % Neut % (Auto) 64.9 (45.5-73.1) % Lymph % (Auto) 24.6 (18.3-44.2) % Cotton % (Auto) 6.2 (2.6-8.5) % Eos % (Auto) 3.1 (0-4.4) % Baso % (Auto) 0.7 (0.2-1.2) % Lymph # (Auto) 1.04 (0.9-3.2) K/mm3 Cotton # (Auto) 0.3 (0.1-0.6) K/mm3 Eos # (Auto) 0.1 (0-0.3) K/mm3 Baso # (Auto) 0.0 (0.0-0.1) K/mm3 Abs Immat Gran (auto) 0.02 (0.00-0.031) K/mm3 Absolute Neuts (auto) 2.7 (1.3-6.7) K/mm3 Absolute Nucleated RBC 0.000 (0.0-0.012) K/mm3 Nucleated RBC % 0.0 (0.0-0.2) % Sodium 140 (137-145) mmol/L Potassium 4.3 (3.4-5.0) mmol/L Chloride 107 (98-107) mmol/L Carbon Dioxide 23 (22-30) mmol/L Anion Gap 10 (4-12) mmol/L BUN 16 (7-17) mg/dL Creatinine 0.63 L (0.7-1.0) mg/dL Estim Creat Clear Calc Not Reportable Estimated GFR > 60 (59 - ) Glucose 102 (65-110) mg/dL Calcium 9.6 (8.4-10.2) mg/dL Total Bilirubin 0.6 (0.2-1.3) mg/dL AST 34 (14-36) U/L ALT 28 (6-35) U/L Alkaline Phosphatase 74 (38-126) U/L Troponin I < 0.012 (0.000-0.034) ng/mL Total Protein 7.5 (6.3-8.2) g/dL Albumin 4.3 (3.5-5.1) g/dL Lipase 192 (23-300) U/L Urine Color Yellow (Yellow) Urine Appearance Clear (Clear) Urine pH 8.5 (5.0-9.0) Ur Specific [place] 1.013 (1.001-1.035) Urine Protein Negative (Negative) mg/dL Urine Glucose (UA) Negative (Negative) mg/dL Urine Ketones Negative (Negative) mg/dL Ur Blood (Man) Negative (Negative) Urine Nitrate Negative (Negative) Urine Bilirubin Negative (Negative) Urine Urobilinogen 0.2 (<2.0) mg/dL Leukocyte Esterase Rfl Trace H (Negative) CHARLENE/UL Urine RBC 0-2 (0-2) /hpf Urine WBC 0-5 (0-3) /hpf Ur Squamous Epith Cells Occasional (Few) /hpf Urine Bacteria None seen /hpf Urine Casts 0-2 ECG Data EKG #1: Attestation: I personally reviewed and interpreted this ECG as follows: ECG completion date: 01/09/25 ECG completion time: 18:46 EKG Interpretation: bradycardia (58), sinus rhythm and NL axis Discharge Plan Discharge Clinical Impression: Vertigo Patient Disposition: Home Condition: Improved Instructions: Antibiotic Form, Benign Paroxysmal Positional Vertigo (ED) Additional Instructions: Follow up with your primary care provider Patient Language: Guyanese Prescriptions: New ondansetron 4 mg tablet,disintegrating 4 mg PO Q6H PRN (Reason: nausea and vomiting) Qty: 14 0RF meclizine 25 mg tablet 25 mg PO BID PRN (Reason: dizziness) Qty: 14 0RF No Action atorvastatin 40 mg tablet 40 mg PO DAILY albuterol sulfate 90 mcg/actuation HFA aerosol inhaler 2 puff inhalation Q4H PRN (Reason: shortness of breath or wheezing) Qty: 6.7 3RF ondansetron 4 mg tablet,disintegrating 4 mg PO Q8H PRN (Reason: nausea and vomiting) Qty: 30 1RF meclizine 25 mg tablet 25 mg PO BID PRN (Reason: dizziness) Qty: 30 1RF Azo Cranberry 250 mg tablet,chewable 250 mg PO TID nitrofurantoin monohyd/m-cryst [Macrobid] 100 mg capsule 100 mg PO Q12H 5 Days Qty: 10 0RF Rx Instructions: must administer with a meal/food metoprolol tartrate 25 mg tablet 12.5 mg PO BID multivitamin Tablet 1 tablet PO DAILY fluticasone propion-salmeterol [Advair Diskus] 250-50 mcg/dose blister with device 1 inh inhalation BID PRN (Reason: allergic symptoms) aspirin 81 mg Tablet 81 mg PO DAILY Patient Comments: PER DR MARROQUIN instructions cholecalciferol (vitamin D3) [Vitamin D3] 25 mcg (1,000 unit) Capsule 25 mcg PO DAILY Saccharomyces boulardii [Florastor] 250 mg capsule 250 mg PO BID Qty: 60 0RF amlodipine [Norvasc] 5 mg tablet 5 mg PO DAILY Qty: 90 1RF venlafaxine 75 mg capsule,extended release 24hr 75 mg PO DAILY Qty: 90 1RF levothyroxine 88 mcg tablet 88 mcg PO DAILY Qty: 90 1RF alprazolam [Xanax] 0.25 mg tablet 0.25 mg PO DAILY PRN (Reason: anxiety) Qty: 30 1RF lisinopril 40 mg tablet 40 mg PO DAILY Qty: 90 1RF Follow-up/Referrals: Brianna Eldridge, RAMEZ, APPELLATE CONFEREE-C [Primary Care Provider, Internal Medicine]
== END 2025-01-09 09:13 | disposition home or self-care (01) ==
PROVIDERS: Student in an Organized Health Care Education/Training Program; Emergency Provider General Practice; PCP Clinical Nurse Specialist
DX: R42 Dizziness and giddiness (principal); I48.91 Unspecified atrial fibrillation; I11.9 Hypertensive heart disease without heart failure; I25.10 Atherosclerotic heart disease of native coronary artery without angina pectoris; E03.9 Hypothyroidism, unspecified; E78.5 Hyperlipidemia, unspecified; K58.9 Irritable bowel syndrome, unspecified; F41.9 Anxiety disorder, unspecified; F32.A Depression, unspecified; Z95.5 Presence of coronary angioplasty implant and graft; Z87.440 Personal history of urinary (tract) infections; Z86.16 Personal history of COVID-19; Z87.01 Personal history of pneumonia (recurrent); Z77.22 Contact with and (suspected) exposure to environmental tobacco smoke (acute) (chronic); R00.1 Bradycardia, unspecified
CPT/HCPCS: 36415; 80053; 81001; 83690; 84484; 85025; 93005; 96361; 96374; 99284; A9270; J2405; J7030

== ENCOUNTER 2025-03-03 08:00 | Outpatient (CLI) | payer MEDICARE, SELFPAY ==
--- NOTE | ~2025-03-03 | US_ITS ---
EXAMINATION: US carotid duplex BI DATE: 03/03/2025 08:56 INDICATION: Dizziness and giddiness TECHNIQUE: Grayscale, color Doppler, and pulsed Doppler images of the cervical carotid arteries were obtained. The degree of vessel stenosis is placed in one of the following categories: normal, <50%, 50-69%, >=70% but less than near- occlusion, near-occlusion, or total occlusion. Note that percent stenosis relative to normal distal artery lumen diameter is indirectly measured from velocity measurements as described by Adria, et al. Radiology 2003; 229:340-346. COMPARISON: None. FINDINGS: RIGHT: The right common carotid artery (CCA) peak systolic velocity (PSV) is 139 cm/s. The right internal carotid artery (ICA) PSV is 73 cm/s. The right ICA end- diastolic velocity (EDV) is 22 cm/s. The right ICA/CCA PSV ratio is 0.5. Grayscale and color Doppler images yield an estimate of <50% diameter reduction from plaque in the ICA. The external carotid artery (ECA) PSV is 106 cm/s. There is antegrade flow in the right vertebral artery. LEFT: The left CCA PSV is 71 cm/s. The left ICA PSV is 99 cm/s. The left ICA EDV is 36 cm/s. The left ICA/CCA PSV ratio is 1.3. Grayscale and color Doppler images yield an estimate of <50% diameter reduction from plaque in the ICA. The ECA PSV is 97 cm/s. There is antegrade flow in the left vertebral artery. IMPRESSION: 1. <50% stenosis from minimal plaque in the right internal carotid artery. 2. <50% stenosis from minimal plaque in the left internal carotid artery. Reviewed, dictated and finalized at location A. S TRAINING MANAGER
--- OUTSIDE RECORDS SUMMARY | 2025-03-03 08:07 | XMS_ITS | Clinical Summary ---
Author Organization [facility] Fernanda Peterson Address [address] [place] [address] Phone Care Team Providers Care Mathematical Sciences Professor Name Role Phone Unavailable Primary Care [...] tablet Take 40 mg by mouth daily. 024 Active albuterol sulfate HFA 90 mcg/actuation aerosol [...] ONCE DAILY AT BEDTIME 90 Tablet 3 024 Active oxyBUTYnin (DITROPAN XL) 10 mg Extended Release 24 hour tablet Take 1 Tablet (10 mg) by mouth daily. 30 Tablet 6 025 Active nitrofurantoin (MACROBID) 100 mg capsule Take 1 Capsule (100 mg) by mouth daily in the morning. 30 Capsule 10 025 Active estriol 0.5/estradiol 0.1 mg vaginal suppository compound Insert 1 suppository vaginally at bedtime nightly for 2 weeks, then twice weekly thereafter. 34 Suppository 6 025 Active metoprolol tartrate (LOPRESSOR) 25 mg tablet Take 1/2 (one-half) tablet by mouth twice daily 90 Tablet 3 025 Active Active Problems Patient Care Coordination [...] lumbar 09/11/19 Coronary artery disease invo lving [place] coronary artery of [place] heart without angina pectoris 03/04/2020 Chronic insomnia [...] Encounters Date Type Department Care Team Description 01/11/2025 External Device Data STL ABSTRACTION Provider, Abstract [...] Depression Brother 02/2012 Heart Disease Brother 02/2012 [place], COPD - 1st [place] age 59 Hypertension Brother 02/2012 Other Brother 02/2012 COPD - smoker Healthy Daughter Amber West ulcerative co litis Heart Attack Father Sahil Taylor Heart Disease Father Sahil Taylor Heart Surgery Father Sahil Taylor High Cholesterol Father Sahil Taylor Hypertension Father Sahil Taylor Other Father Sahil Sueroapp copd Heart Disease Mother [place] Taylor Hypertension Mother [place] Taylor Kidney Disease Mother [place] Taylor Other Mother [place] Taylor Respiratory Disease Mother [place] Taylor Stroke Mother [place] Taylor Depression Sister Xiomy Fair Healthy Sister [...] Taylor Maternal Grandfather Maternal Grandmother Mother Rhonda Sueroapp Alive Paternal Grandfather Paternal Grandmother Sister Xiomy Fair Alive Son Brando Wei Alive Social History Tobacco Use Types Packs/Day Years Used Date Smoking Tobacco: Never Smokeless Tobacco: Never Tobacco Cessation:Counseling Given: Yes Alcohol Use Standard Drinks/Week Comments Not Currently 0 (1 standard drink = 0.6 oz pur e alcohol) Comments No Sex and Gender Information Value Date Recorded Sex Assigned at Not on file Legal Sex Female 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 Gender Identity Not on file Sexual Orientation Not on file Occupation Industry Job Start Date Job End Date Not on file Not on file Not on file Not on file Last Filed Vital Signs Vital Sign Reading Time Taken Comments Blood Pressure 123/75 11/21/2024 9:45 AM CDT Pulse 83 11/21/2024 9:45 AM CDT Temperature 36.5 C (97.7 F) 02/23/2020 9:57 AM SENIOR INTERNET SALES CONSULTANT Respiratory Rate 96 09/08/2024 12:07 PM CDT Oxygen Saturation 98% 08/09/2024 8:17 AM CDT Inhaled Oxygen Concentration - - Weight 69.2 kg (152 lb 8 oz) 09/08/2024 12:07 PM CDT Height 154.9 cm (5' 1) 09/08/2024 12:07 PM CDT Body Mass Index 28.81 09/08/2024 12:07 PM CDT Plan of Treatment Upcoming Encounters Date Type Department Care Team (Late st Contact Info) Description 09/07/2025 9:15 AM CDT Office Visit [facility] At [address] [place] [address] Randal Cooley MD [address] [place] [address] [address] [place] [address] Health Maintenance Due Date Last Done Comments ZOSTER VACCINE (1 of 2) 1977 FIT-DNA Q 3 years 12/26/2003 Flex Sig/CT Colonography Q 5 years 12/26/2003 RSV VACCINE (60+ or ) (1 - Risk 50-74 years 1-dose series) 2008 Pre-Diabetes and Diabetes Screening 04/29/2011 04/29/2008 FIT/FOBT Q 1 year 12/08/2017 12/08/2016 OSTEOPOROSIS SCREENING 12/26/2023 INFLUENZA VACCINE (#1) 2024 , 02/27/2023, 01/10/2022, Additional history exists BREAST CANCER SCREENING 11/10/2025 11/11/19, 04/28/2022, 03/04/2019, Additional history exists COLORECTAL SCREENING 01/24/2032 01/23/2022, 01/23/2022, 09/08/2018, Additional history exists Colorectal Cancer Screening 01/24/2032 DTAP/TDAP/TD VACCINES (3 - T d or Tdap) 04/19/2034 04/19/2024, 03/25/2013, 02/25/2006, Additional history exists PNEUMOCOCCAL VACCINE 50+ YEARS Completed 0 04/18/2024, 10/17/2019, 10/17/2019, Additional history exists Medical Devices Implanted Type Area Timber Rider Device Identifier Shelf Expiration Date Model / Serial / Lot Mesh [facility]6 - [id number] Implanted:Qty : 1 on 08/06/2016 by Naima Guadarrama MD at [facility] Mesh Right: Abdomen [employer] [id number] 11/13/2017 [facility] / / [id number] Stent Procedures Procedure Name Priority Date/Time Associated Diagnosis Comments MAMMO 3D CAL SCREEN BILAT W OR WO CAD Routine 11/10/2024 1:52 PM CDT Encounter for screening mammogram for breast cancer COLONOSCOPY REPORT 09/08/2018 7: 40 AM CDT OCCULT BLOOD IMMUNOASSAY, COLORECTAL SCREEN Routine 12/08/2016 8:58 PM CDT Chronic anemia GLUCOSE FASTING Routine 04/29/2008 8:10 AM SENIOR INTERNET SALES CONSULTANT Lipid Screening from Last 3 Months or Most Recently Relevant to Health Maintenance Results * MAMMO 3D CAL SCREEN BILAT W OR WO CAD (11/10/2024 1:52 PM CDT) Anatomical Region Laterality Modality Breast Bilateral Mammography 11/10/2024 1:52 PM CDT Impressions 11/10/2024 3:56 PM CDT IMPRESSION: Negative bilateral screening mammogram. Recommend routine followup. OVERALL FINAL ASSESSMENT: BI-RADS CATEGORY 1: Negative. DICTATION LOCATION: [facility] Narrative 11/10/2024 3:56 PM CDT BILATERAL SCREENING DIGITAL MAMMOGRAM WITH 3D TOMOSYNTHESIS AND CAD DATE: 11/10/2024 1:52 PM HISTORY: Annual screening study. COMPARISON: 04/28/2022, 02/22/2019 TECHNIQUE: A bilateral screening mammogram was performed. Low-dose full-field digital breast tomosynthesis examination was performed with 2D and 3D acquisitions. Examination is read in conjunction with computer aided detection. BREAST COMPOSITION: Heterogeneously dense, which limits the sensitivity of mammography FINDINGS: No new masses, suspicious calcifications, or areas of asymmetry or distortion are identified. The images were reviewed using the CAD system. us Garo Chandler MD MAMMO ORDERABLES Final Resu lt * COLONOSCOPY REPORT (09/08/2018 7:40 AM CDT) Narrative Procedure Note Felix Webber MD - 09/08/2018 7:39 AM CDT [facility] Endoscopy Patient Name: Ely Wei [...] of Addenda: [address]; [place] [address] us Felix Webber MD GI PROCEDURE ORDERABLES Final Re sult * OCCULT BLOOD IMMUNOASSAY, COLORECTAL SCREEN (12/08/2016 8:58 PM CDT) OCCULT BLOOD, STOOL Negative Negative 12/09/2016 10:07 PM CDT [facility] Stool STOOL SPECIMEN / Unknown Collection / Unknown 12/08/2016 8:58 PM CDT 12/09/2016 8:59 PM CDT Jina Banda MD BODY FLUIDS AND STOOLS [place] l Result [facility] CLIA# [id number] [address] [place] [address] * GLUCOSE FASTING (04/29/2008 8:10 AM SENIOR INTERNET SALES CONSULTANT) GLUCOSE FASTING 88 65 - 99 mg/dL [facility] Blood specimen (specimen) 04/29/2008 8:10 AM SENIOR INTERNET SALES CONSULTANT 04/29/2008 2:45 PM SENIOR INTERNET SALES CONSULTANT Jina Banda MD CHEMISTRY ORDERABLES Final Result INTERFACE SYSTEM Refer to clinic/hospital department [facility] CLIA# [id number] [address] [place] [place] [address] from Last 3 Months or Most Recently Relevant to Health Maintenance Insurance MEDICARE PART A AND B [employer] MEDICARE SUPPLEMENT RX [employer] RX Member Subscriber Plan / Payer (Ef fective 2023-Present) Name:Ely Wei Relation to Subscriber:Self Name:Ely Wei Payer ID:Not on file Group ID:[id number] Type:RX Medicare Part D Address: [address] [facility] DATA Medicare Part B Advance Directives For more information, please contact: [phone] * Full Code (Latest Code Status on [...]
--- OUTSIDE RECORDS SUMMARY | 2025-03-03 08:07 | XMS_ITS | Encounter Summary ---
Author Organization [facility] Address [address] [place] [address] Care Team Providers Care Pilot Captain Name Role Phone Jina Banda MD Primary Care Provider Unav ailable Encounter Details Date Type Department Care Team (Late st Contact Info) Description 06/06/1998 Outpatient Historical [facility] Internal Medicine - [facility] [address] [address] [facility] [address] [place] [address] Jina Banda MD NO ADDRESS ON FILE Social History Tobacco Use Types Packs/Day Years Used Date Smoking Tobacco: Never Assessed Comments Unknown Sex and Gender Information Value Date Recorded Sex Assigned at Not on file Legal Sex Female 5:30 AM THIN FILM TECHNICIAN Gender Identity Not on file Sexual Orientation Not on file documented as of this encounter Plan of Treatment Upcoming Encounters Date Type Department Care Team (Late Contact Info) Description 09/07/2025 9:15 AM CDT Office Visit [facility] At [address] [place] [address] Randal Cooley MD [address] [place] [address] [address] [place], [place] [id number] documented as of this encounter Visit Diagnoses Not on filedocumented in this encounter Additional Health Concerns Infection Onset Date Last Indicated Resolved Time R/O COVID-19 11/08/2019 11/08/2019 11/11/2019 12:3 1 AM CDT R/O COVID-19 02/01/2020 02/01/2020 02/03/2020 2:00 AM THIN FILM TECHNICIAN documented as of this encounter Care Teams Pilot Captain Relationship Specialty Start Date End Date Jina Banda MD PCP - General Internal Medicine 06/20/16 12/03/21 documented as of this encounter
--- OUTSIDE RECORDS SUMMARY | 2025-03-03 08:07 | XMS_ITS | Encounter Summary ---
Author Organization [facility] Address [address] [place] [address] Phone Care Team Providers Care In Flight Refueling Operator Name Role Phone Mervin Jay DO Primary Care Provider +1- [phone] Encounter Details Date Type Department Care Team (Late st Contact Info) Description 02/23/2019 Orders Only [facility] Scanning, Provider Social History Tobacco Use Types Packs/Day Years Used Date Smoking Tobacco: Never Assessed Comments Unknown Sex and Gender Information Value Date Recorded Sex Assigned at Not on file Legal Sex Female 6:45 PM CARNIVAL WORKER Gender Identity Not on file Sexual [...] on filedocumented in this encounter Care Teams In Flight Refueling Operator Relationship Specialty Start Date End Date Mervin Jay DO PCP - General Internal Medicine 10/21/21 documented as of this encounter
--- OUTSIDE RECORDS SUMMARY | 2025-03-03 08:07 | XMS_ITS | Encounter Summary ---
Author Organization [facility] Address [address] [place] [address] Care Team Providers Care Manager Child Name Role Phone Jina Banda MD Primary Care Provider Unav ailable Encounter Details Date Type Department Care Team (Late st Contact Info) Description 09/05/1998 Outpatient Historical [facility] Internal [facility] - [place] [address] [address] [facility] [address] [place] [address] Jina Banda MD NO ADDRESS ON FILE Social History Tobacco Use Types Packs/Day Years Used Date Smoking Tobacco: Never Assessed Comments Unknown Sex and Gender Information Value Date Recorded Sex Assigned at Not on file Legal Sex Female 5:30 AM NC MANAGER Gender Identity Not on file Sexual Orientation Not on file documented as of this encounter Plan of Treatment Upcoming Encounters Date Type Department Care Team (Late Contact Info) Description 09/07/2025 9:15 AM CDT Office Visit [facility] At [address] [place] [address] Randal Cooley MD [address] [place] [address] [address] [place], [place] [id number] documented as of this encounter Visit Diagnoses Not on filedocumented in this encounter Additional Health Concerns Infection Onset Date Last Indicated Resolved Time R/O COVID-19 11/08/2019 11/08/2019 11/11/2019 12:3 1 AM CDT R/O COVID-19 02/01/2020 02/01/2020 02/03/2020 2:00 AM NC MANAGER documented as of this encounter Care Teams Manager Child Relationship Specialty Start Date End Date Jina Banda MD PCP - General Internal Medicine 06/20/16 12/03/21 documented as of this encounter
--- OUTSIDE RECORDS SUMMARY | 2025-03-03 08:07 | XMS_ITS | Encounter Summary ---
Author Organization [facility] Address [address] [place] [address] Phone Care Team Providers Care Vice President [employer] Name Role Phone Mervin Jay DO Primary Care Provider +1- [phone] Encounter Details Date Type Department Care Team (Late st Contact Info) Description 09/22/2018 Orders Only [facility] Scanning, Provider Social History Tobacco Use Types Packs/Day Years Used Date Smoking Tobacco: Never Assessed Comments Unknown Sex and Gender Information Value Date Recorded Sex Assigned at Not on file Legal Sex Female 6:45 PM PRINCIPAL GIFTS OFFICER Gender Identity Not on file Sexual [...] on filedocumented in this encounter Care Teams Vice President [employer] Relationship Specialty Start Date End Date Mervin Jay DO PCP - General Internal Medicine 10/21/21 documented as of this encounter
--- OUTSIDE RECORDS SUMMARY | 2025-03-03 08:07 | XMS_ITS | Encounter Summary ---
Author Organization [facility] Address [address] [place] [address] Care Team Providers Care Telepathist Name Role Phone Unavailable Primary Care Provider Unavailabl e Encounter Details Date Type Department Care Team (Late Contact Info) Description 02/12/2023 Telephone [facility] [facility] [address] [place] [address] Sarah Rai RN Social History Tobacco Use Types Packs/Day Years Used Date Smoking Tobacco: Never Smokeless Tobacco: Never Alcohol Use Standard Drinks/Week Comments Not Currently 0 (1 standard drink = 0.6 oz pur e alcohol) Comments No Sex and Gender Information Value Date Recorded Sex Assigned at Not on file Legal Sex Female 5:30 AM SCARIFIER OPERATOR Gender Identity Not on file Sexual Orientation Not on file Occupation Industry Job Start Date Job End Date Not on file Not on file Not on file Not on file documented as of this encounter Miscellaneous Notes * Telephone Encounter - Sarah Rai RN - 02/12/2023 1:15 PM SCARIFIER OPERATOR Attempted to reach patient regarding follow up after injection. LVM to return call IFIER OPERATOR documented in this encounter Plan of Treatment Upcoming Encounters Date Type Department Care Team (Late st Contact Info) Description 09/07/2025 9:15 AM CDT Office Visit [facility] At [address] [place] [address] Randal Cooley MD [address] [place] [address] [address] [place] [address] documented as of this encounter Visit Diagnoses Not on filedocumented in this encounter
--- OUTSIDE RECORDS SUMMARY | 2025-03-03 08:07 | XMS_ITS | Encounter Summary ---
Author Organization [facility] Address [address] [place] [address] Care Team Providers Care Veterinarian Poultry Name Role Phone Jina Banda MD Primary Care Provider Unav ailable Encounter Details Date Type Department Care Team (Late st Contact Info) Description 01/11/2001 Outpatient Historical [facility] Internal Medicine - [facility] [address] [address] [facility] [address] [place] [address] Jina Banda MD NO ADDRESS ON FILE Social History Tobacco Use Types Packs/Day Years Used Date Smoking Tobacco: Never Assessed Comments Unknown Sex and Gender Information Value Date Recorded Sex Assigned at Not on file Legal Sex Female 5:30 AM BLOCK SEALER Gender Identity Not on file Sexual Orientation Not on file documented as of this encounter Plan of Treatment Upcoming Encounters Date Type Department Care Team (Late Contact Info) Description 09/07/2025 9:15 AM CDT Office Visit [facility] At [address] [place] [address] Randal Cooley MD [address] [place] [address] 2014 [place], [place] [id number] documented as of this encounter Visit Diagnoses Not on filedocumented in this encounter Additional Health Concerns Infection Onset Date Last Indicated Resolved Time R/O COVID-19 11/08/2019 11/08/2019 11/11/2019 12:3 1 AM CDT R/O COVID-19 02/01/2020 02/01/2020 02/03/2020 2:00 AM BLOCK SEALER documented as of this encounter Care Teams Veterinarian Poultry Relationship Specialty Start Date End Date Jina Banda MD PCP - General Internal Medicine 06/20/16 12/03/21 documented as of this encounter
--- OUTSIDE RECORDS SUMMARY | 2025-03-03 08:07 | XMS_ITS | Encounter Summary ---
Author Organization [facility] Address [address] [place] [address] Care Team Providers Care Guard Immigration Name Role Phone Jina Banda MD Primary Care Provider Unav ailable Encounter Details Date Type Department Care Team (Late st Contact Info) Description 05/15/1999 Outpatient Historical [facility] Internal Medicine - [facility] [address] [address] [facility] [address] [place] [address] Jina Banda MD NO ADDRESS ON FILE Social History Tobacco Use Types Packs/Day Years Used Date Smoking Tobacco: Never Assessed Comments Unknown Sex and Gender Information Value Date Recorded Sex Assigned at Not on file Legal Sex Female 5:30 AM FOSTER WINDER Gender Identity Not on file Sexual Orientation Not on file documented as of this encounter Plan of Treatment Upcoming Encounters Date Type Department Care Team (Late Contact Info) Description 09/07/2025 9:15 AM CDT Office Visit [facility] At [address] [place] [address] Randal Cooley MD [address] [place] [address] [address] [place], [place] [id number] documented as of this encounter Visit Diagnoses Not on filedocumented in this encounter Additional Health Concerns Infection Onset Date Last Indicated Resolved Time R/O COVID-19 11/08/2019 11/08/2019 11/11/2019 12:3 1 AM CDT R/O COVID-19 02/01/2020 02/01/2020 02/03/2020 2:00 AM FOSTER WINDER documented as of this encounter Care Teams Guard Immigration Relationship Specialty Start Date End Date Jina Banda MD PCP - General Internal Medicine 06/20/16 12/03/21 documented as of this encounter
--- OUTSIDE RECORDS SUMMARY | 2025-03-03 08:07 | XMS_ITS | Clinical Summary ---
Author Organization [facility] Address [facility] [place] [address] Care Team Providers Care President And Chief Executive Officer Name Role Phone Mervin Jay DO Primary Care Provider +1- [phone] Allergies Active Allergy Reactions Criticality Noted Date [...] (01/06/2022): Added automatically from request for surgery [id number] Surgical History Surgery Date Site/Laterality Comments UPPER [...] on file Legal Sex Female 6:45 PM POSTBED STITCHER Gender Identity Not on file Sexual Orientation Not on file Last Filed Vital Signs Vital Sign Reading Time Taken Comments Blood Pressure 130/83 09/05/2024 1:05 PM CDT Pulse 71 09/05/2024 1:05 PM CDT Temperature 36.9 C (98.5 F) 09/05/2024 1:05 PM CDT Respiratory Rate 15 01/23/2022 11:05 AM POSTBED STITCHER Oxygen Saturation 96% 09/05/2024 1:05 PM CDT [...] Associated Diagnosis Comments COLONOSCOPY 01/23/2022 10:27 AM POSTBED STITCHER from Last 3 Months or Most Recently Relevant to Health Maintenance Results * COLONOSCOPY (01/23/2022 10:27 AM POSTBED STITCHER) Anatomical Region Laterality Modality Other Narrative Procedure Note Ez Agarwal MD - 01/23/2022 10:27 AM [facility] Patient Name: Ely Wei Procedure Date: 01/23/2022 10:27AM Date of : 1960 Admit Type: Outpatient Age: 61 Gender: Female Attending MD: Ez Agarwal M.D. Room: [facility] ENDOSCOPY ROOM 8 Note Status: Finalized Procedure: [...] The scope was passed under direct vision.The [id number] endoscope was introduced through the anus and [...] On: 01/23/2022 10:27 AM Recognized by the [employer] for promoting quality in endoscopy Ez Agarwal MD ENDOSCOPY PROCEDURES F inal Result from Last 3 Months or Most Recently Relevant to Health Maintenance Insurance MEDICARE [facility] MEDICARE SUPPLEMENT MEDICARE [facility] MEDICARE SUPPLEMENT Advance Directives For more information, please contact: [phone] * Full Code (Latest Code Status on File) Date Activated Date Inactivated Comments 01/23/2022 9:55 AM 01/23/2022 3:41 PM Care Teams President And Chief Executive Officer Relationship Specialty Start Date End Date Mervin Jay DO PCP - General Internal Medicine 10/21/21
--- OUTSIDE RECORDS SUMMARY | 2025-03-03 08:07 | XMS_ITS | Encounter Summary ---
Author Organization [facility] Address [address] [facility] Attn: [place] [address] Care Team Providers Care Wood Craftsman Name Role Phone Jina Banda MD Primary Care Provider Unav ailable Encounter Details Date Type Department Care Team (Late st Contact Info) Description 04/08/1989 Outpatient Historical Sahil Tsang MD [address] [place] [address] Social History Tobacco Use Types Packs/Day Years Used Date Smoking Tobacco: Never Assessed Comments Unknown Sex and Gender Information Value Date Recorded Sex Assigned at Not on file Legal Sex Female 5:30 AM MANAGER PLANNING Gender Identity Not on file Sexual Orientation Not on file documented as of this encounter Plan of Treatment Upcoming Encounters Date Type Department Care Team (Late st Contact Info) Description 09/07/2025 9:15 AM CDT Office Visit [facility] Heart and Vascular At [address] [place] [address] Randal Cooley MD [address] [place] [address] [address] [place] [address] documented as of this encounter Visit Diagnoses Not on filedocumented in this encounter Additional Health Concerns Infection Onset Date Last Indicated Resolved Time R/O COVID-19 11/08/2019 11/08/2019 11/11/2019 12:3 1 AM CDT R/O COVID-19 02/01/2020 02/01/202002/03/2020 2:00 AM MANAGER PLANNING documented as of this encounter Care Teams Wood Craftsman Relationship Specialty Start Date End Date Jina Banda MD PCP - General Internal Medicine 06/20/16 12/03/21 documented as of this encounter
--- OUTSIDE RECORDS SUMMARY | 2025-03-03 08:07 | XMS_ITS | Encounter Summary ---
Author Organization [facility] Address [address] [facility] Attn: [place] [address] Care Team Providers Care Hand Counter Name Role Phone Jina Banda MD Primary Care Provider Unav ailable Encounter Details Date Type Department Care Team (Late st Contact Info) Description 05/13/1990 Outpatient Historical Sahil Tsang MD [address] [place] [address] Social History Tobacco Use Types Packs/Day Years Used Date Smoking Tobacco: Never Assessed Comments Unknown Sex and Gender Information Value Date Recorded Sex Assigned at Not on file Legal Sex Female 5:30 AM MUSHROOM PACKER Gender Identity Not on file Sexual Orientation Not on file documented as of this encounter Plan of Treatment Upcoming Encounters Date Type Department Care Team (Late st Contact Info) Description 09/07/2025 9:15 AM CDT Office Visit [facility] Heart and Vascular At [address] 2014 [place] [address] Randal Cooley MD [address] [place] [address] 2014 [place] [address] documented as of this encounter Visit Diagnoses Not on filedocumented in this encounter Additional Health Concerns Infection Onset Date Last Indicated Resolved Time R/O COVID-19 11/08/2019 11/08/2019 11/11/2019 12:3 1 AM CDT R/O COVID-19 02/01/2020 02/01/202002/03/2020 2:00 AM MUSHROOM PACKER documented as of this encounter Care Teams Hand Counter Relationship Specialty Start Date End Date Jina Banda MD PCP - General Internal Medicine 06/20/16 12/03/21 documented as of this encounter
--- OUTSIDE RECORDS SUMMARY | 2025-03-03 08:07 | XMS_ITS | Encounter Summary ---
Author Organization [facility] Address [address] [place] [address] Phone Care Team Providers Care Engine Installer Name Role Phone Mervin Jay DO Primary Care Provider [phone] Encounter Details Date Type Department Care Team (Late st Contact Info) Description 10/17/2019 Orders Only [facility] Scanning, Provider Social History Tobacco Use Types Packs/Day Years Used Date Smoking Tobacco: Never Assessed Comments Unknown Sex and Gender Information Value Date Recorded Sex Assigned at Not on file Legal Sex Female 6:45 PM HOOK AND EYE ATTACHER Gender Identity Not on file Sexual Orientation [...] on filedocumented in this encounter Care Teams Engine Installer Relationship Specialty Start Date End Date Mervin Jay DO PCP - General Internal Medicine 10/21/21 documented as of this encounter
--- OUTSIDE RECORDS SUMMARY | 2025-03-03 08:07 | XMS_ITS | Encounter Summary ---
Author Organization [facility] Address [address] [place] [address] Care Team Providers Care Electric Meter Tester Shop Name Role Phone Jina Banda MD Primary Care Provider Unav ailable Encounter Details Date Type Department Care Team (Late st Contact Info) Description 03/14/2015 Chart Note [facility] [employer] [address] [address] Briseida Solano, Physical Therapist Social History Tobacco Use Types Packs/Day Years Used Date Smoking Tobacco: Never Smokeless Tobacco: Never Alcohol Use Standard Drinks/Week Comments No 0 (1 standard drink = 0.6 oz pur e alcohol) Comments No Sex and Gender Information Value Date Recorded Sex Assigned at Not on file Legal Sex Female 5:30 AM SCALE MANAGER Gender Identity Not on file Sexual [...] in order to assist with completion of pumping station supervisor. met 2. Patient to be able to [...] Solano, PT, DPT, OCS [place] License No.: [id number] [facility] [address] [place] [address] (phone) [phone] (fax) E MANAGER documented in this encounter Plan of Treatment Upcoming Encounters Date Type Department Care Team (Late st Contact Info) Description 09/07/2025 9:15 AM CDT Office Visit [facility] Heart and Vascular At [address] [place] [address] Randal Cooley MD [address] [place] [address] [address] [place] [address] documented as of this encounter Visit Diagnoses Not on filedocumented in this encounter Additional Health Concerns Infection Onset Date Last Indicated Resolved Time R/O COVID-19 11/08/2019 11/08/2019 11/11/2019 12:3 1 AM CDT R/O COVID-19 02/01/2020 02/01/2020 02/03/2020 2:00 AM SCALE MANAGER documented as of this encounter Care Teams Electric Meter Tester Shop Relationship Specialty Start Date End Date Jina Banda MD PCP - General Internal Medicine 06/20/16 12/03/21 documented as of this encounter
--- OUTSIDE RECORDS SUMMARY | 2025-03-03 08:07 | XMS_ITS | Patient Health Record ---
Author Organization [employer] Address [address] [facility] [address] [place] [address] Care Team Providers Care Mechanical Development Engineer Name Role Phone Mervin Jay DO Primary Care Provider Freda brizuela Allergies Allergen (clinical drug ingredient) Drug/Non Drug Allergy documented on EMR Reaction Allergy Type Onset Date Status Pneumonial 23- Isis P s Vaccine (uncoded) Unknown Allergy Active Substance with sulfonamide structure and antibacterial mechanism of action (substance) Sulfa (uncoded) Unknown Allergy Active amoxicillin Amoxicillin Unknown Drug Allergy Act olvier Doxycycline Calcium Unknown Drug Allergy Active Hydrocodone [...] Status Risk Notes Problem Hemorrhoids without complication (50176541) Hemorrhoids, unspecified hemorrhoid type (K64.9) Active confirmed She notes feeling 1 external nonbleeding hemorrhoid at this time in which she has tried topical hydrocortisone [id number] with mild improvement as well as an old prescription of a hydrocortisone suppository. Problem Diarrhea (17158958) Diarrhea (R19.7) Active confirmed She has known [...] given her daughter has UC Problem Diarrhea (86929440) Diarrhea, unspecified type (R19.7) Active confirmed She [...] medication intolerance, and others. Problem Abdominal pain (02240577) Abdominal cramping (R10.9) Active confirmed Problem Intestinal malabsorption (584169307) Intestinal malabsorption , unspecified type (K90.9) Active confirmed Problem Microscopic colitis (130795713) Microscopic colitis (K52.839) Active confirmed She can continu e Pepto as needded for now Plan Of Treatment Pending Test Test Name Order Date SIBO Breath Test 06/18/2021 Initiate SIBO 05/28/2021 Insurance Providers Payer Name Payer Address Payer Phone Subscriber Number Group Number Insured Name Patient Relationship to Insured Coverage Start Date Coverage End Date Medicare E2 [address] [address] [place] [address] [id number] Ely Wei Self - patient is the insured [place] Medicare Supplement E2 [address] [place] [address] [id number] Ely Wei Self - patient is [...]
--- OUTSIDE RECORDS SUMMARY | 2025-03-03 08:07 | XMS_ITS | Encounter Summary ---
Author Organization [facility] Address [address] [place] [address] Care Team Providers Care Packing Machine Pilot Can Router Name Role Phone Jina Banda MD Primary Care Provider Unav ailable Encounter Details Date Type Department Care Team (Late st Contact Info) Description 02/26/2015 Nurse Triage Report [facility] Miladis Celestin, RN [address] [place] [address] Social History Tobacco Use Types Packs/Day Years Used Date Smoking Tobacco: Never Smokeless Tobacco: Never Alcohol Use Standard Drinks/Week Comments No 0 (1 standard drink = 0.6 oz pur e alcohol) Comments No Sex and Gender Information Value Date Recorded Sex Assigned at Not on file Legal Sex Female 5:30 AM SILK SCREEN REPAIRER Gender Identity Not on file Sexual [...] Reviewed <<<<<<<< TRIAGE NOTE >>>>>>>> Triage Note: Fruit I Farmworker Eleni Celestin added this note on Feb 26 2015 9:36PM: will call office in the morning is patient is not better. <<<<<<<< TRIAGE/OUTCOME >>>>>>>> Guideline Title: Nausea or Vomiting Recommended Disposition: Provide Home/Self Care Original Inclination: Self Management Intended Action: Self Management Physician Contacted: No All other situations ? YES SCREEN REPAIRER documented in this encounter Plan of Treatment Upcoming Encounters Date Type Department Care Team (Late st Contact Info) Description 09/07/2025 9:15 AM CDT Office Visit [facility] Heart and Vascular At [address] [place] [address] Randal Cooley MD [address] [place] [address] [address] [place] [address] documented as of this encounter Visit Diagnoses Not on filedocumented in this encounter Additional Health Concerns Infection Onset Date Last Indicated Resolved Time R/O COVID-19 11/08/2019 11/08/2019 11/11/2019 12:3 1 AM CDT R/O COVID-19 02/01/2020 02/01/2020 02/03/2020 2:00 AM SILK SCREEN REPAIRER documented as of this encounter Care Teams Packing Machine Pilot Can Router Relationship Specialty Start Date End Date Jina Banda MD PCP - General Internal Medicine 06/20/16 12/03/21 documented as of this encounter
--- OUTSIDE RECORDS SUMMARY | 2025-03-03 08:07 | XMS_ITS | Encounter Summary ---
Author Organization [facility] Address [address] [place] [address] Care Team Providers Care Commercial Escrow Officer Name Role Phone Jina Banda MD Primary Care Provider Unav ailable Encounter Details Date Type Department Care Team (Late Contact Info) Description 10/30/2000 Outpatient Historical Division of Neurology [address] [place] [address]., [address] [place], [place] [phone] Crow Coburn MD [address] [place] [address] [place] [address] Social History Tobacco Use Types Packs/Day Years Used Date Smoking Tobacco: Never Assessed Comments Unknown Sex and Gender Information Value Date Recorded Sex Assigned at Not on file Legal Sex Female 5:30 AM ELECTRIC MOTOR REPAIRMAN Gender Identity Not on file Sexual Orientation Not on file documented as of this encounter Plan of Treatment Upcoming Encounters Date Type Department Care Team (Late Contact Info) Description 09/07/2025 9:15 AM CDT Office Visit [facility] Heart and Vascular At [address] [place] [address] Randal Cooley MD [address] [place] [address] [address] [place] [address] documented as of this encounter Visit Diagnoses Not on filedocumented in this encounter Additional Health Concerns Infection Onset Date Last Indicated Resolved Time R/O COVID-19 11/08/2019 11/08/2019 11/11/2019 12:3 1 AM CDT R/O COVID-19 02/01/2020 02/01/2020 02/03/2020 2:00 AM ELECTRIC MOTOR REPAIRMAN documented as of this encounter Care Teams Commercial Escrow Officer Relationship Specialty Start Date End Date Jina Banda MD PCP - General Internal Medicine 06/20/16 12/03/21 documented as of this encounter
--- OUTSIDE RECORDS SUMMARY | 2025-03-03 08:08 | XMS_ITS | Encounter Summary ---
Author Organization [facility] Address [address] [place] [address] Care Team Providers Care Business Info Consultant Name Role Phone Jina Banda MD Primary Care Provider Unav ailable Encounter Details Date Type Department Care Team (Late st Contact Info) Description 02/25/2006 Outpatient Historical [facility] Internal Medicine - [facility] [address] [address] [facility] [address] [place] [address] Jina Banda MD NO ADDRESS ON FILE Social History Tobacco Use Types Packs/Day Years Used Date Smoking Tobacco: Never Assessed Comments Unknown Sex and Gender Information Value Date Recorded Sex Assigned at Not on file Legal Sex Female 5:30 AM CROWNING INSPECTOR Gender Identity Not on file Sexual Orientation Not on file documented as of this encounter Plan of Treatment Upcoming Encounters Date Type Department Care Team (Late Contact Info) Description 09/07/2025 9:15 AM CDT Office Visit [facility] Heart and Vascular At [address] [place] [address] Randal Cooley MD [address] [place] [address] 2014 [place], [place] [id number] documented as of this encounter Visit Diagnoses Not on filedocumented in this encounter Additional Health Concerns Infection Onset Date Last Indicated Resolved Time R/O COVID-19 11/08/2019 11/08/2019 11/11/2019 12:3 1 AM CDT R/O COVID-19 02/01/2020 02/01/2020 02/03/2020 2:00 AM CROWNING INSPECTOR documented as of this encounter Care Teams Business Info Consultant Relationship Specialty Start Date End Date Jina Banda MD PCP - General Internal Medicine 06/20/16 12/03/21 documented as of this encounter
--- OUTSIDE RECORDS SUMMARY | 2025-03-03 08:08 | XMS_ITS | Encounter Summary ---
Author Organization [facility] Address [address] [place] [address] Care Team Providers Care Junior Web Developer Name Role Phone Jina Banda MD Primary Care Provider Unav ailable Encounter Details Date Type Department Care Team (Late st Contact Info) Description 02/28/2006 Outpatient Historical [facility] Internal Medicine - [facility] [address] [address] [facility] [address] [place] [address] Jina Banda MD NO ADDRESS ON FILE Unspecified Hypothyroidism (Primary Dx) Social History Tobacco Use Types Packs/Day Years Used Date Smoking Tobacco: Never Assessed Comments Unknown Sex and Gender Information Value Date Recorded Sex Assigned at Not on file Legal Sex Female 5:30 AM ALUMINUM FABRICATION SUPERVISOR Gender Identity Not on file Sexual Orientation Not on file documented as of this encounter Plan of Treatment Upcoming Encounters Date Type Department Care Team (Late st Contact Info) Description 09/07/2025 9:15 AM CDT Office Visit [facility] Heart and Vascular At [address] [place] [address] Randal Cooley MD [address] [place] [address] 2014 [place] [address] documented as of this encounter Procedures Procedure Name Priority Date/Time Associated Diagnosis Comments CBC WITH DIFFERENTIAL Routine 02/28/2006 9:53 AM ALUMINUM FABRICATION SUPERVISOR CBC WITH DIFFERENTIAL Routine 02/28/2006 9:53 AM ALUMINUM FABRICATION SUPERVISOR TSH Routine 02/28/2006 9:53 AM ALUMINUM FABRICATION SUPERVISOR LIPID PANEL Routine 02/28/2006 9:53 AM ALUMINUM FABRICATION SUPERVISOR documented in this encounter Results * CBC WITH DIFFERENTIAL (02/28/2006 9:53 AM ALUMINUM FABRICATION SUPERVISOR) NEUTROPHILS 57 45 - 70 % INTERFAC [...] 0.20 K/uL INTERFACE SYSTEM 02/28/2006 9:53 AM ALUMINUM FABRICATION SUPERVISOR Jina Banda MD HEMATOLOGY ORDERABLES Final Result INTERFACE SYSTEM Refer to clinic/hospital department * (ABNORMAL) CBC WITH DIFFERENTIAL (02/28/2006 9:53 AM ALUMINUM FABRICATION SUPERVISOR) Pathologist [facility] WBC 4.6 4.0 - 9.8 K/uL INTERFACE [...] 12.4 fL INTERFACE SYSTEM 02/28/2006 9:53 AM ALUMINUM FABRICATION SUPERVISOR us Jina Banda MD HEMATOLOGY ORDERABLES Final Result Performing Organization Address City/[facility] Co de Phone Number INTERFACE SYSTEM Refer to clinic/hospital department * TSH (02/28/2006 9:53 AM ALUMINUM FABRICATION SUPERVISOR) TSH 2.24 0.27 - 4.20 uU/mL INTERFACE SYSTEM 02/28/2006 9:53 AM ALUMINUM FABRICATION SUPERVISOR us Jina Banda MD CHEMISTRY ORDERABLES Final Result Performing Organization Address [facility] de Phone Number INTERFACE SYSTEM Refer to clinic/hospital department * (ABNORMAL) LIPID PANEL (02/28/2006 9:53 AM ALUMINUM FABRICATION SUPERVISOR) CHOLESTEROL 179 100 - 199 mg/dL INTERFACE [...] available on the [facility] [place] Intranet at: [email or web address] Select: Lab Policies and Procedures Select: Reference Ranges - Lipids 02/28/2006 9:53 AM ALUMINUM FABRICATION SUPERVISOR us Jina Banda MD CHEMISTRY ORDERABLES Final Result Performing Organization Address City/[facility] Co de Phone Number INTERFACE SYSTEM Refer to clinic/hospital department documented in this encounter Visit Diagnoses Diagnosis Unspecified hypothyroidism- Primary documented in this encounter Additional Health Concerns Infection Onset Date Last Indicated Resolved Time R/O COVID-19 11/08/2019 11/08/2019 11/11/2019 12:3 1 AM CDT R/O COVID-19 02/01/2020 02/01/2020 02/03/2020 2:00 AM ALUMINUM FABRICATION SUPERVISOR documented as of this encounter Care Teams Junior Web Developer Relationship Specialty Start Date End Date Jina Banda MD PCP - General Internal Medicine 06/20/16 12/03/21 documented as of this encounter
--- OUTSIDE RECORDS SUMMARY | 2025-03-03 08:08 | XMS_ITS | Encounter Summary ---
Author Organization [facility] Address [address] [place] [address] Care Team Providers Care Software Configuration Engineer Name Role Phone Jina Banda MD Primary Care Provider Unav ailable Encounter Details Date Type Department Care Team (Late Contact Info) Description 04/14/2005 Outpatient Historical [facility] Adult [facility] [address] [place] [address] Jill Moran MD [address] [place] [id number] Social History Tobacco Use Types Packs/Day Years Used Date Smoking Tobacco: Never Assessed Comments Unknown Sex and Gender Information Value Date Recorded Sex Assigned at Not on file Legal Sex Female 5:30 AM CARROT BUNCHER Gender Identity Not on file Sexual Orientation Not on file documented as of this encounter Plan of Treatment Upcoming Encounters Date Type Department Care Team (Late Contact Info) Description 09/07/2025 9:15 AM CDT Office Visit [facility] Heart and Vascular At [facility] [address] [facility] [address] [place] [address] Randal Cooley MD [address] [place] [address] 2014 [place], [place] [id number] documented as of this encounter Visit Diagnoses Not on filedocumented in this encounter Additional Health Concerns Infection Onset Date Last Indicated Resolved Time R/O COVID-19 11/08/2019 11/08/2019 11/11/2019 12:3 1 AM CDT R/O COVID-19 02/01/2020 02/01/2020 02/03/2020 2:00 AM CARROT BUNCHER documented as of this encounter Care Teams Software Configuration Engineer Relationship Specialty Start Date End Date Jina Banda MD PCP - General Internal Medicine 06/20/16 12/03/21 documented as of this encounter
--- OUTSIDE RECORDS SUMMARY | 2025-03-03 08:08 | XMS_ITS | Encounter Summary ---
Author Organization [facility] Address [address] [place] [address] Care Team Providers Care Erp Specialist Name Role Phone Jina Banda MD Primary Care Provider Unav ailable Encounter Details Date Type Department Care Team (Latest Contact Info) Description 11/24/2001 Outpatient Historical [facility] Chato Aguilera MD [address] [place] [address] SCREENING MAMM-MAILG NEOPL-OTHER (Primary Dx) Social History Tobacco Use Types Packs/Day Years Used Date Smoking Tobacco: Never Assessed Comments Unknown Sex and Gender Information Value Date Recorded Sex Assigned at Not on file Legal Sex Female 5:30 AM CADD OPERATOR Gender Identity Not on file Sexual Orientation Not on file documented as of this encounter Plan of Treatment Upcoming Encounters Date Type Department Care Team (Late st Contact Info) Description 09/07/2025 9:15 AM CDT Office Visit [facility] Heart and Vascular At [address] [place] [address] Randal Cooley MD [address] [place] [address] 2014 [place] [address] documented as of this encounter Visit Diagnoses Diagnosis Other screening mammogram- Primary documented in this encounter Additional Health Concerns Infection Onset Date Last Indicated Resolved Time R/O COVID-19 11/08/2019 11/08/2019 11/11/2019 12:3 1 AM CDT R/O COVID-19 02/01/2020 02/01/2020 02/03/2020 2:00 AM CADD OPERATOR documented as of this encounter Care Teams Erp Specialist Relationship Specialty Start Date End Date Jina Banda MD PCP - General Internal Medicine 06/20/16 12/03/21 documented as of this encounter
--- OUTSIDE RECORDS SUMMARY | 2025-03-03 08:08 | XMS_ITS | Encounter Summary ---
Author Organization [facility] Address [address] [place] [address] Care Team Providers Care Fryer Operator Name Role Phone Jina Banda MD Primary Care Provider Unav ailable Encounter Details Date Type Department Care Team (Late st Contact Info) Description 09/22/2000 Outpatient Historical [facility] Internal Medicine - [facility] [address] [address] [facility] [address] [place] [address] Jina Banda MD NO ADDRESS ON FILE Social History Tobacco Use Types Packs/Day Years Used Date Smoking Tobacco: Never Assessed Comments Unknown Sex and Gender Information Value Date Recorded Sex Assigned at Not on file Legal Sex Female 5:30 AM MONTESSORI PARAPROFESSIONAL Gender Identity Not on file Sexual Orientation Not on file documented as of this encounter Plan of Treatment Upcoming Encounters Date Type Department Care Team (Late Contact Info) Description 09/07/2025 9:15 AM CDT Office Visit [facility] Heart and Vascular At [address] [place] [address] Randal Cooley MD [address] [place] [address] 2014 [place], [place] [id number] documented as of this encounter Visit Diagnoses Not on filedocumented in this encounter Additional Health Concerns Infection Onset Date Last Indicated Resolved Time R/O COVID-19 11/08/2019 11/08/2019 11/11/2019 12:3 1 AM CDT R/O COVID-19 02/01/2020 02/01/2020 02/03/2020 2:00 AM MONTESSORI PARAPROFESSIONAL documented as of this encounter Care Teams Fryer Operator Relationship Specialty Start Date End Date Jina Banda MD PCP - General Internal Medicine 06/20/16 12/03/21 documented as of this encounter
--- OUTSIDE RECORDS SUMMARY | 2025-03-03 08:08 | XMS_ITS | Encounter Summary ---
Author Organization [facility] Address [address] [place] [address] Care Team Providers Care Team Primary Care Physician Name Role Phone Jina Banda MD Primary Care Provider Unav ailable Encounter Details Date Type Department Care Team (Latest Contact Info) Description 02/15/2007 Outpatient Historical [facility] [address] [place] [address] Malcolm You MD [address] [place] [address] [address] [place] [address] Pain in Joint, Pelvic Region and Thigh (Primary Dx) Social History Tobacco Use Types Packs/Day Years Used Date Smoking Tobacco: Never Assessed Comments Unknown Sex and Gender Information Value Date Recorded Sex Assigned at Not on file Legal Sex Female 5:30 AM SOIL SCIENTIST Gender Identity Not on file Sexual Orientation Not on file documented as of this encounter Plan of Treatment Upcoming Encounters Date Type Department Care Team (Late st Contact Info) Description 09/07/2025 9:15 AM CDT Office Visit [facility] Heart and Vascular At [address] [place] [address] Randal Cooley MD [address] [place] [address] 2014 [place] [address] documented as of this encounter Visit Diagnoses Diagnosis Pain in joint, pelvic region and thigh- Primary documented in this encounter Additional Health Concerns Infection Onset Date Last Indicated Resolved Time R/O COVID-19 11/08/201911/0711/08/2019 11/11/2019 12:3 1 AM CDT R/O COVID-02/01/2020 02/01/2020 02/03/2020 2:00 AM SOIL SCIENTIST documented as of this encounter Care Teams Team Primary Care Physician Relationship Specialty Start Date End Date Jina Banda MD PCP - General Internal Medicine 06/20/16 12/03/21 documented as of this encounter
--- OUTSIDE RECORDS SUMMARY | 2025-03-03 08:08 | XMS_ITS | Encounter Summary ---
Author Organization [facility] Address [address] [place] [address] Care Team Providers Care Parliamentary Archivist Name Role Phone Jina Banda MD Primary Care Provider Unav ailable Encounter Details Date Type Department Care Team (Late st Contact Info) Description 05/26/2007 Outpatient Historical [facility] Internal Medicine - [facility] [address] [id number] [facility] [address] [place] [address] Jina Banda MD NO ADDRESS ON FILE Social History Tobacco Use Types Packs/Day Years Used Date Smoking Tobacco: Never Assessed Comments Unknown Sex and Gender Information Value Date Recorded Sex Assigned at Not on file Legal Sex Female 5:30 AM LEATHER NOVELTY PARTS CUTTER Gender Identity Not on file Sexual Orientation Not on file documented as of this encounter Plan of Treatment Upcoming Encounters Date Type Department Care Team (Late Contact Info) Description 09/07/2025 9:15 AM CDT Office Visit [facility] Heart and Vascular At [address] [place] [address] Randal Cooley MD [address] [place] [address] 2014 [place], [place] [phone] documented as of this encounter Visit Diagnoses Not on filedocumented in this encounter Additional Health Concerns Infection Onset Date Last Indicated Resolved Time R/O COVID-19 11/08/2019 11/08/2019 11/11/2019 12:3 1 AM CDT R/O COVID-19 02/01/2020 02/01/2020 02/03/2020 2:00 AM LEATHER NOVELTY PARTS CUTTER documented as of this encounter Care Teams Parliamentary Archivist Relationship Specialty Start Date End Date Jina Banda MD PCP - General Internal Medicine 06/20/16 12/03/21 documented as of this encounter
--- OUTSIDE RECORDS SUMMARY | 2025-03-03 08:08 | XMS_ITS | Encounter Summary ---
Author Organization [facility] Address [address] [place] [address] Care Team Providers Care Commercial Attorney Name Role Phone Jina Banda MD Primary Care Provider Unav ailable Encounter Details Date Type Department Care Team (Late st Contact Info) Description 06/03/2007 Orders Only [facility] Internal Medicine - [facility] [address] [address] [facility] [address] [place] [address] Jina Banda MD NO ADDRESS ON FILE Social History Tobacco Use Types Packs/Day Years Used Date Smoking Tobacco: Never Assessed Comments Unknown Sex and Gender Information Value Date Recorded Sex Assigned at Not on file Legal Sex Female 5:30 AM MANAGER TRADING Gender Identity Not on file Sexual Orientation Not on file documented as of this encounter Progress Notes * Jina Banda MD - 08/19/2007 7:26 PM CDT TIME:02:29 pm PATIENT`S HOME PHONE: PATIENT`S WORK PHONE: PATIENT`S INSURANCE: [facility] WHO TOOK THE CALL: Kecia Diego GENERAL INFORMATION PCP: inocencia. ALTERNATIVE PHONE NUMBER: [phone] WHO CALLED: Patient called. CURRENT ALLERGY LIST: GUAIFENESIN HUMIBID [facility] NUMBER: [phone] OTHER INFORMATION: Patient is not currently . [...] on patient`s recorder. SECTION 2: FINAL ACTION: spirmao 06/03/07 at 03:45 pm Called pharmacy at 06/03/07 at 03:45 pm. ds documented in this encounter Plan of Treatment Upcoming Encounters Date Type Department Care Team (Late st Contact Info) Description 09/07/2025 9:15 AM CDT Office Visit [facility] Heart and Vascular At [address] [place] [address] Randal Cooley MD [address] [place] [address] 2014 [place] [address] documented as of this encounter Visit Diagnoses Not on filedocumented in this encounter Additional Health Concerns Infection Onset Date Last Indicated Resolved Time R/O COVID-19 11/08/2019 11/08/2019 11/11/2019 12:3 1 AM CDT R/O COVID-19 02/01/2020 02/01/2020 02/03/2020 2:00 AM MANAGER TRADING documented as of this encounter Care Teams Commercial Attorney Relationship Specialty Start Date End Date Jina Banda MD PCP - General Internal Medicine 06/20/16 12/03/21 documented as of this encounter
--- OUTSIDE RECORDS SUMMARY | 2025-03-03 08:08 | XMS_ITS | Encounter Summary ---
Author Organization [facility] Address [address] [place] [address] Care Team Providers Care Ornamental Machine Operator Name Role Phone Jina Banda [...] on file Legal Sex Female 5:30 AM FAMILY SERVICE WORKER Gender Identity Not on file Sexual Orientation Not on file documented as of this encounter Plan of Treatment Upcoming Encounters Date Type Department Care Team (Late st Contact Info) Description 09/07/2025 9:15 AM CDT Office Visit [facility] Heart and Vascular At [address] [place] [phone] Randal Cooley MD [address] [place] [address] 2014 [place] [address] documented as of this encounter Visit Diagnoses Diagnosis Unspecified hypothyroidism documented in this encounter Additional Health Concerns Infection Onset Date Last Indicated Resolved Time R/O COVID-19 11/08/2019 11/08/2019 11/11/2019 12:3 1 AM CDT R/O COVID-19 02/01/2020 02/01/2020 02/03/2020 2:00 AM FAMILY SERVICE WORKER documented as of this encounter Care Teams Ornamental Machine Operator Relationship Specialty Start Date End Date Jina Banda MD PCP - General Internal Medicine 06/20/16 12/03/21 documented as of this encounter
--- OUTSIDE RECORDS SUMMARY | 2025-03-03 08:08 | XMS_ITS | Encounter Summary ---
Author Organization [facility] Address [address] [place] [address] Care Team Providers Care Math Professor Name Role Phone Jina Banda MD Primary Care Provider Unav ailable Encounter Details Date Type Department Care Team (Late st Contact Info) Description 10/05/2000 Outpatient Historical [facility] Internal Medicine - [facility] [address] [address] [facility] [address] [place] [address] Jina Banda MD NO ADDRESS ON FILE Social History Tobacco Use Types Packs/Day Years Used Date Smoking Tobacco: Never Assessed Comments Unknown Sex and Gender Information Value Date Recorded Sex Assigned at Not on file Legal Sex Female 5:30 AM TOOL MAINTENANCE TECHNICIAN Gender Identity Not on file Sexual Orientation Not on file documented as of this encounter Plan of Treatment Upcoming Encounters Date Type Department Care Team (Late Contact Info) Description 09/07/2025 9:15 AM CDT Office Visit [facility] Heart and Vascular At [address] [place] [address] Randal Cooley MD [address] [place] [address] 2014 [place], [place] [phone] documented as of this encounter Visit Diagnoses Not on filedocumented in this encounter Additional Health Concerns Infection Onset Date Last Indicated Resolved Time R/O COVID-19 11/08/2019 11/08/2019 11/11/2019 12:3 1 AM CDT R/O COVID-19 02/01/2020 02/01/2020 02/03/2020 2:00 AM TOOL MAINTENANCE TECHNICIAN documented as of this encounter Care Teams Math Professor Relationship Specialty Start Date End Date Jina Banda MD PCP - General Internal Medicine 06/20/16 12/03/21 documented as of this encounter
--- OUTSIDE RECORDS SUMMARY | 2025-03-03 08:08 | XMS_ITS | Clinical Summary ---
Author Organization [facility] Address [address] [facility] [address] Care Team Providers Care Thermometer Tester Name Role Phone Mervin Jay DO Primary Care Provider Source Comments [facility],non-owned Affiliates and Associated Physician Practices is amultiple site organization consisting of ambulatory clinics and hospital sitesin [place], [place], [place] and [place]. This disclosure is being madepursuant to the Care Everywhere program and may not contain all information available regarding this patient. Last updated 17.[facility] Allergies Active Allergy Reactions Criticality Noted Date [...] MCG/ACT nasal sprayIndications :Acute pharyngitis, unspecified etiology [place] 2 sprays into each nostril once daily [...] on file Legal Sex Female 6:26 AM EAR NOSE AND THROAT SPECIALIST Gender Identity Not on file Sexual [...] to complete this topic Insurance ANTH MEDICARE [facility] Care Teams Thermometer Tester Relationship Specialty Start Date End Date Mervin Jay DO PCP - General 09/26/20
--- OUTSIDE RECORDS SUMMARY | 2025-03-03 08:08 | XMS_ITS | Encounter Summary ---
Author Organization [facility] Address [address] [place] [address] Care Team Providers Care University Controller Name Role Phone Jina Banda MD Primary Care Provider Unav ailable Encounter Details Date Type Department Care Team (Late st Contact Info) Description 09/07/2006 Outpatient Historical [facility] Internal Medicine - [facility] [address] [address] [facility] [address] [place] [address] Jina Banda MD NO ADDRESS ON FILE Social History Tobacco Use Types Packs/Day Years Used Date Smoking Tobacco: Never Assessed Comments Unknown Sex and Gender Information Value Date Recorded Sex Assigned at Not on file Legal Sex Female 5:30 AM SCRIPT DEVELOPER Gender Identity Not on file Sexual [...] [facility] At [address] [place] [address] Randal Cooley MD [address] [place] [address] documented as of this encounter Visit Diagnoses Not on filedocumented in this encounter Additional Health Concerns Infection Onset Date Last Indicated Resolved Time R/O COVID-19 11/08/2019 11/08/2019 11/11/2019 12:3 1 AM CDT R/O COVID-19 02/01/2020 02/01/2020 02/03/2020 2:00 AM SCRIPT DEVELOPER documented as of this encounter Care Teams University Controller Relationship Specialty Start Date End Date Jina Banda MD PCP - General Internal Medicine 06/20/16 12/03/21 documented as of this encounter
--- OUTSIDE RECORDS SUMMARY | 2025-03-03 08:08 | XMS_ITS | Encounter Summary ---
Author Organization [facility] Address [address] [place] [address] Care Team Providers Care Director Of Home Economics Name Role Phone Jina Banda MD Primary Care Provider Unav ailable Encounter Details Date Type Department Care Team (Late Contact Info) Description 09/20/2008 Outpatient Historical [facility] Thelma Mota MD [address] [facility] [address] [place], [place] [phone] Diarrhea Social History Tobacco Use Types Packs/Day Years Used Date Smoking Tobacco: Never Alcohol Use Standard Drinks/Week Comments Not Asked 0 (1 standard drink = 0.6 oz pur e alcohol) Comments No Sex and Gender Information Value Date Recorded Sex Assigned at Not on file Legal Sex Female 5:30 AM CONCAVER Gender Identity Not on file Sexual Orientation Not on file documented as of this encounter Plan of Treatment Upcoming Encounters Date Type Department Care Team (Late Contact Info) Description 09/07/2025 9:15 AM CDT Office Visit [facility] Heart and Vascular At [address] [place] [address] Randal Cooley MD [address] [place] [address] 2014 [place] [address] documented as of this encounter [...] AM CDT) ENDOMYSIAL AB IGA Negative Negative [facility] Comment: Lab test performed by: [facility] [address] [place] [phone] GIUSEPPE RUTLEDGE MD 09/20/2008 9:35 AM CDT 09/20/2008 9:53 AM CDT Narrative INTERFACE SYSTEM - 09/23/2008 5:50 AM CDT cc: Eva Borden CNP Thelma Haile MD CHEMISTRY ORDERABLES Final R esult Performing Organization Address [facility] de Phone Number INTERFACE SYSTEM Refer to clinic/hospital department [facility] CLIA# [id number] [address] [facility] [place] [address] * (ABNORMAL) IGA (09/20/2008 9:35 AM CDT) IGA <5.0(L) 87.0 - 421.0 mg/dL [facility] 09/20/2008 9:35 AM CDT 09/20/2008 9:53 AM CDT [employer] INTERFACE SYSTEM - 09/20/2008 10:51 AM CDT cc: Eva Borden CNP us Thelma Haile MD CHEMISTRY ORDERABLES Final R esult Performing Organization Address [facility] Co de Phone Number INTERFACE SYSTEM Refer to clinic/hospital department [facility] CLIA# [id number] [address] [place] [address] * GLIADIN ABS IGG/IGA (09/20/2008 9:35 AM CDT) GLIADIN IGA AB <3 <11 U/mL [facility] Comment: Reference Range: <11 U/mL Negative 11-17 U/mL Equivocal >17 U/mL Positive Lab test performed by: [facility] [employer] [place], [place] GIUSEPPE RUTLEDGE MD GLIADIN IGG AB 7 <11 U/mL [facility] Comment: Reference Range: <11 U/mL Negative 11-17 U/mL Equivocal >17 U/mL Positive 09/20/2008 9:35 AM CDT 09/20/2008 9:53 AM CDT [employer] INTERFACE SYSTEM - 09/22/2008 4:34 PM CDT cc: Eva Borden CNP Thelma Haile MD CHEMISTRY ORDERABLES Final R esult Performing Organization Address City/[facility] Co de Phone Number INTERFACE SYSTEM Refer to clinic/hospital department [facility] CLIA# [id number] [address] [place] [address] * TRANSGLUTAMINASE IGG ANTIBODY (09/20/2008 9:35 AM CDT) TRANSGLUTAMINASE IGG AB <3 <7 U/mL [facility] Comment: Reference range: <7 U/mL Negative 7-10 U/mL Equivocal >10 U/mL Positive Lab test performed by: [employer] [place] GIUSEPPE RUTLEDGE MD 09/20/2008 9:35 AM CDT 09/20/2008 9:53 AM CDT Narrative INTERFACE SYSTEM - 09/25/2008 7:17 PM CDT cc: Eva Borden CNP Thelma Haile MD CHEMISTRY ORDERABLES Final R esult Performing Organization Address [facility] Phone Number INTERFACE SYSTEM Refer to clinic/hospital department [facility] CLIA# [id number] [address] [place] [address] * TRANSGLUTAMINASE IGA ANTIBODY (09/20/2008 9:35 AM CDT) TRANSGLUTAMINASE IGA AB <3 <5 U/mL [facility] Comment: Reference range: <5 U/mL Negative 5-8 U/mL Equivocal >8 U/mL Positive Lab test performed by: [facility] [address] [place] [phone] GIUSEPPE RUTLEDGE MD 09/20/2008 9:35 AM CDT 09/20/2008 9:53 AM CDT Narrative INTERFACE SYSTEM - 09/23/2008 8:24 PM CDT cc: Eva Borden CNP Thelma Haile MD CHEMISTRY ORDERABLES Final R esult Performing Organization Address [facility] de Phone Number INTERFACE SYSTEM Refer to clinic/hospital department [facility] CLIA# [id number] [address] [place] [address] documented in this encounter Visit Diagnoses Diagnosis Diarrhea documented in this encounter Additional Health Concerns Infection Onset Date Last Indicated Resolved Time R/O COVID-19 11/08/2019 11/08/2019 11/11/2019 12:3 1 AM CDT R/O COVID-19 02/01/2020 02/01/2020 02/03/2020 2:00 AM CONCAVER documented as of this encounter Care Teams Director Of Home Economics Relationship Specialty Start Date End Date Jina Banda MD PCP - General Internal Medicine 06/20/16 12/03/21 documented as of this encounter
--- OUTSIDE RECORDS SUMMARY | 2025-03-03 08:08 | XMS_ITS | Encounter Summary ---
Author Organization [facility] Address [address] [place] [address] Care Team Providers Care Professor Of Early Childhood Education Name Role Phone Jina Banda MD Primary Care Provider Unav ailable Encounter Details Date Type Department Care Team (Late st Contact Info) Description 07/09/2000 Outpatient Historical [facility] Internal Medicine - [facility] [address] [address] [facility] [address] [place] [address] Jina Banda MD NO ADDRESS ON FILE Social History Tobacco Use Types Packs/Day Years Used Date Smoking Tobacco: Never Assessed Comments Unknown Sex and Gender Information Value Date Recorded Sex Assigned at Not on file Legal Sex Female 5:30 AM PT SITTER Gender Identity Not on file Sexual Orientation Not on file documented as of this encounter Plan of Treatment Upcoming Encounters Date Type Department Care Team (Late Contact Info) Description 09/07/2025 9:15 AM CDT Office Visit [facility] Heart and Vascular At [address] [place] [address] Randal Cooley MD [address] [place] [address] 2014 [place], [place] [phone] documented as of this encounter Visit Diagnoses Not on filedocumented in this encounter Additional Health Concerns Infection Onset Date Last Indicated Resolved Time R/O COVID-19 11/08/2019 11/08/2019 11/11/2019 12:3 1 AM CDT R/O COVID-19 02/01/2020 02/01/2020 02/03/2020 2:00 AM PT SITTER documented as of this encounter Care Teams Professor Of Early Childhood Education Relationship Specialty Start Date End Date Jina Banda MD PCP - General Internal Medicine 06/20/16 12/03/21 documented as of this encounter
--- OUTSIDE RECORDS SUMMARY | 2025-03-03 08:08 | XMS_ITS | Encounter Summary ---
Author Organization [facility] Address [address] [place] [address] Care Team Providers Care Display Decorator Name Role Phone Jina Banda MD Primary Care Provider Unav ailable Encounter Details Date Type Department Care Team (Late st Contact Info) Description 06/30/2007 Orders Only [facility] Internal Medicine - [facility] [address] [address] [facility] [address] [place] [address] Jina Banda MD NO ADDRESS ON FILE Social History Tobacco Use Types Packs/Day Years Used Date Smoking Tobacco: Never Assessed Comments Unknown Sex and Gender Information Value Date Recorded Sex Assigned at Not on file Legal Sex Female 5:30 AM WIRELESS SALES REPRESENTATIVE Gender Identity Not on file Sexual Orientation Not on file documented as of this encounter Progress Notes * Jina Banda MD - 08/20/2007 10:30 AM CDT TIME:11:04 am PATIENT`S HOME PHONE: PATIENT`S WORK PHONE: PATIENT`S INSURANCE: [facility] WHO TOOK THE CALL: Vivi Rock A GENERAL INFORMATION PCP: inocencia PHARMACY NUMBER: [phone] SECTION 1: REQUESTED ACTION obertt 06/30/07 at 11:05 am: MEDICATION REQUEST: MEDICATIONS: PAROXETINE HCL ORAL TABLET 10 MG, 1/2 tab qd, 30 Dispensed, status: NEW PRESCRIPTION, 05/26/2007. Rx request says 1 tab QD? Last RF 05/21/07 RECEIVED FAXED REQUEST FROM THE PHARMACY [facility]. [place], [place]. DOCTOR`S RESPONSE: herlinda 06/30/07 at 12:45 [...] [facility] At [address] [place] [address] Randal Cooley MD [address] [place] [address] 2014 [place] [address] documented as of this encounter Visit Diagnoses Not on filedocumented in this encounter Additional Health Concerns Infection Onset Date Last Indicated Resolved Time R/O COVID-19 11/08/2019 11/08/2019 11/11/2019 12:3 1 AM CDT R/O COVID-19 02/01/2020 02/01/2020 02/03/2020 2:00 AM WIRELESS SALES REPRESENTATIVE documented as of this encounter Care Teams Display Decorator Relationship Specialty Start Date End Date Jina Banda MD PCP - General Internal Medicine 06/20/16 12/03/21 documented as of this encounter
--- OUTSIDE RECORDS SUMMARY | 2025-03-03 08:08 | XMS_ITS | Encounter Summary ---
Author Organization [facility] Address [address] [place] [address] Care Team Providers Care Compressor Station Engineer Chief Name Role Phone Jina Banda MD Primary Care Provider Unav ailable Encounter Details Date Type Department Care Team (Late st Contact Info) Description 07/01/2002 Outpatient Historical [facility] Internal Medicine - [facility] [address] [address] [facility] [address] [place] [address] Jina Banda MD NO ADDRESS ON FILE Social History Tobacco Use Types Packs/Day Years Used Date Smoking Tobacco: Never Assessed Comments Unknown Sex and Gender Information Value Date Recorded Sex Assigned at Not on file Legal Sex Female 5:30 AM ORTHODONTIST ASSISTANT Gender Identity Not on file Sexual Orientation Not on file documented as of this encounter Plan of Treatment Upcoming Encounters Date Type Department Care Team (Late Contact Info) Description 09/07/2025 9:15 AM CDT Office Visit [facility] Heart and Vascular At [address] [place] [address] Randal Cooley MD [address] [place] [address] 2014 [place], [place] [phone] documented as of this encounter Visit Diagnoses Not on filedocumented in this encounter Additional Health Concerns Infection Onset Date Last Indicated Resolved Time R/O COVID-19 11/08/2019 11/08/2019 11/11/2019 12:3 1 AM CDT R/O COVID-19 02/01/2020 02/01/2020 02/03/2020 2:00 AM ORTHODONTIST ASSISTANT documented as of this encounter Care Teams Compressor Station Engineer Chief Relationship Specialty Start Date End Date Jina Banda MD PCP - General Internal Medicine 06/20/16 12/03/21 documented as of this encounter
--- OUTSIDE RECORDS SUMMARY | 2025-03-03 08:08 | XMS_ITS | Encounter Summary ---
Author Organization [facility] Address [address] [place] [address] Care Team Providers Care Executive Coach Name Role Phone Linda Gimenez MD Primary Care Provider Unav ailable Encounter Details Date Type Department Care Team (Latest Contact Info) Description 02/04/2008 Outpatient Historical [facility] PATRICIO Barahona, Bailee Alva, DO NO ADDRESS ON FILE Other Screening Mammogram Social History Tobacco Use Types Packs/Day Years Used Date Smoking Tobacco: Never Alcohol Use Standard Drinks/Week Comments Not Asked 0 (1 standard drink = 0.6 oz pur e alcohol) Comments No Sex and Gender Information Value Date Recorded Sex Assigned at Not on file Legal Sex Female 5:30 AM SEDIMENTATIONIST Gender Identity Not on file Sexual Orientation Not on file documented as of this encounter Plan of Treatment Upcoming Encounters Date Type Department Care Team (Late st Contact Info) Description 09/07/2025 9:15 AM CDT Office Visit [facility] At [address] [place] [address] Randal Cooley MD [address] [place] [address] [address] [place] [address] documented as of this encounter Procedures Procedure Name Priority Date/Time Associated Diagnosis Comments MAMMO SCREEN BILAT W OR WO CAD Routine 02/04/2008 8:06 AM SEDIMENTATIONIST documented in this encounter Results * MAMMO DIGITAL SCREEN BILAT (02/04/2008 8:06 AM SEDIMENTATIONIST) Anatomical Region Laterality Modality Breast Bilateral Other 02/04/2008 8:06 AM SEDIMENTATIONIST Narrative 02/04/2008 11:46 PM SEDIMENTATIONIST [place] [address] [place], [place] [address] Admit Date: 02/04/2008 EDU WEI Sex: F Admit Prov: BAILEE BARAHONA Date: 1960 Primary Care Prov: LINDA GIMENEZ CMRN: [id number] Room: JOSUE N: [id number] IMAGING SERVICES Ordering Prov: BAILEE BARAHONA Accession Number: [id number] Interpretation BILATERAL SCREENING DIGITAL MAMMOGRAMS WITH COMPUTER [...] Procedure Note Kecia Arreola MD - 02/04/2008 [address] [place] [place], [place] [address] Admit Date: 02/04/2008 EDU WEI Sex: F Admit Prov: BAILEE BARAHONA Date:1960 Primary Care Prov: LINDA GIMENEZ CMRN: [id number] Room: JOSUE SSN: [id number] IMAGING SERVICES Ordering Prov: BAILEE BARAHONA Interpretation BILATERAL SCREENING DIGITAL MAMMOGRAMS WITH COMPUTER ASSISTEDDIAGNOSIS 02/04/2008 History: Annual screening study. Comparison mammograms dating back to 2005 FINDINGS: The parenchyma is very dense bilaterally. This lowersthe sensitivity of mammography in detecting disease. There is no mass, malignant calcification, lymphadenopathy, architectural distortion orother sign of malignancy. The images were reviewed using the [employer]. SUMMARY: Dense mammary parenchyma. No mammographic evidence [...] R/O COVID-19 02/01/2020 02/01/2020 02/03/2020 2:00 AM SEDIMENTATIONIST documented as of this encounter Care Teams Executive Coach Relationship Specialty Start Date End Date Linda Gimenez MD PCP - General Internal Medicine 06/20/16 12/03/21 documented as of this encounter
--- OUTSIDE RECORDS SUMMARY | 2025-03-03 08:08 | XMS_ITS | Encounter Summary ---
Author Organization [facility] Address [address] [place] [address] Care Team Providers Care Court Transcriber Name Role Phone Jina Banda MD Primary Care Provider Unav ailable Encounter Details Date Type Department Care Team (Late st Contact Info) Description 05/26/2007 Orders Only [facility] Internal Medicine - [facility] [address] [address] [facility] [address] [place] [address] Jina Banda MD NO ADDRESS ON FILE Social History Tobacco Use Types Packs/Day Years Used Date Smoking Tobacco: Never Assessed Comments Unknown Sex and Gender Information Value Date Recorded Sex Assigned at Not on file Legal Sex Female 5:30 AM COLLAR PACKER Gender Identity Not on file Sexual [...] splenomegaly. ASSESSMENT/PLAN: 244.9-HYPOTHYROIDISM LAB ORDERS: Order number: [id number] Test Ordered: TSH [id number] MEDICATIONS: Pt states that amoxicillin causes diarrhea but she tolerates this well. CECLOR ORAL CAPSULE CONVENTIONAL 250 MG, 1 Three Times A Day, 30 Dispensed, status: NEW PRESCRIPTION, 05/26/2007. LAB ORDERS: Order number: [id number] Test Ordered: CBC (INCLUDES DIFF/PLT) [id number] SPECIALTY REFERRAL: GASTROENTEROLOGY Dr. Thelma Haile ph: [phone] fax: [phone].for further evaluation of intermittent abdominal pain. RETURN VISIT : Instructed to call if not improving. Electronically Signed by: Jina Banda MD on Saturday, May 26, 2007 documented in this encounter Plan of Treatment Upcoming Encounters Date Type Department Care Team (Late st Contact Info) Description 09/07/2025 9:15 AM CDT Office Visit [facility] V[facility] At [place] [address] [address] [facility] [address] [place] [address] Randal Cooley MD [address] [place] [address] [address] [place] [address] documented as of this encounter Visit Diagnoses Not on filedocumented in this encounter Additional Health Concerns Infection Onset Date Last Indicated Resolved Time R/O COVID-19 11/08/2019 11/08/2019 11/11/2019 12:3 1 AM CDT R/O COVID-19 02/01/2020 02/01/2020 02/03/2020 2:00 AM COLLAR PACKER documented as of this encounter Care Teams Court Transcriber Relationship Specialty Start Date End Date Jina Banda MD PCP - General Internal Medicine 06/20/16 12/03/21 documented as of this encounter
--- OUTSIDE RECORDS SUMMARY | 2025-03-03 08:08 | XMS_ITS | Encounter Summary ---
Author Organization [facility] Address [address] [place] [address] Care Team Providers Care Field Recruiter Name Role Phone Jina Banda MD Primary Care Provider Unav ailable Encounter Details Date Type Department Care Team (Late st Contact Info) Description 12/22/2005 Outpatient Historical [facility] Internal Medicine - [facility] [address] [address] [facility] [address] [place] [address] Jina Banda MD NO ADDRESS ON FILE Social History Tobacco Use Types Packs/Day Years Used Date Smoking Tobacco: Never Assessed Comments Unknown Sex and Gender Information Value Date Recorded Sex Assigned at Not on file Legal Sex Female 5:30 AM ISO COORDINATOR Gender Identity Not on file Sexual [...] [facility] [address] [place] [address] Randal Cooley MD [address] [place] [address] [address] [place], [place] [id number] documented as of this encounter Visit Diagnoses Not on filedocumented in this encounter Additional Health Concerns Infection Onset Date Last Indicated Resolved Time R/O COVID-19 11/08/2019 11/08/2019 11/11/2019 12:3 1 AM CDT R/O COVID-19 02/01/2020 02/01/2020 02/03/2020 2:00 AM ISO COORDINATOR documented as of this encounter Care Teams Field Recruiter Relationship Specialty Start Date End Date Jina Banda MD PCP - General Internal Medicine 06/20/16 12/03/21 documented as of this encounter
--- OUTSIDE RECORDS SUMMARY | 2025-03-03 08:08 | XMS_ITS | Encounter Summary ---
Author Organization [facility] Address [address] [place] [address] Care Team Providers Care Hand Winder Name Role Phone Jina Banda MD Primary Care Provider Unav ailable Encounter Details Date Type Department Care Team (Late Contact Info) Description 02/12/2005 Outpatient Historical [facility] Internal Medicine - [facility] [address] [address] [facility] [address] [place] [address] Jina Banda MD NO ADDRESS ON FILE Social History Tobacco Use Types Packs/Day Years Used Date Smoking Tobacco: Never Assessed Comments Unknown Sex and Gender Information Value Date Recorded Sex Assigned at Not on file Legal Sex Female 5:30 AM FITNESS AND WELLNESS MANAGER Gender Identity Not on file Sexual Orientation Not on file documented as of this encounter Last Filed Vital Signs Vital Sign Reading Time Taken Comments Blood Pressure 114/60 02/12/2005 2:00 PM FITNESS AND WELLNESS MANAGER Pulse 80 02/12/2005 2:00 PM FITNESS AND WELLNESS MANAGER Temperature 37.1 C (98.8 F) 02/12/2005 2:00 PM FITNESS AND WELLNESS MANAGER Respiratory Rate - - Oxygen Saturation - - Inhaled Oxygen Concentration - - Weight 63.5 kg (140 lb) 02/12/2005 2:00 PM FITNESS AND WELLNESS MANAGER Height - - Body Mass Index - - documented in this encounter Plan of Treatment Upcoming Encounters Date Type Department Care Team (Late Contact Info) Description 09/07/2025 9:15 AM CDT Office Visit [facility] Vascular At [address] [place] [address] Randal Cooley MD [address] [place] [address] documented as of this encounter Visit Diagnoses Not on filedocumented in this encounter Additional Health Concerns Infection Onset Date Last Indicated Resolved Time R/O COVID-19 11/08/2019 11/08/2019 11/11/2019 12:3 1 AM CDT R/O COVID-19 02/01/2020 02/01/2020 02/03/2020 2:00 AM FITNESS AND WELLNESS MANAGER documented as of this encounter Care Teams Hand Winder Relationship Specialty Start Date End Date Jina Banda MD PCP - General Internal Medicine 06/20/16 12/03/21 documented as of this encounter
--- OUTSIDE RECORDS SUMMARY | 2025-03-03 08:08 | XMS_ITS | Encounter Summary ---
Author Organization [facility] Address [address] [place] [address] Care Team Providers Care Glazier Helper Name Role Phone Jina Banda MD Primary Care Provider Unav ailable Encounter Details Date Type Department Care Team (Late st Contact Info) Description 04/14/2005 Outpatient Historical [facility] Internal Medicine - [facility] [address] [address] [facility] [address] [place] [address] Jina Banda MD NO ADDRESS ON FILE Social History Tobacco Use Types Packs/Day Years Used Date Smoking Tobacco: Never Assessed Comments Unknown Sex and Gender Information Value Date Recorded Sex Assigned at Not on file Legal Sex Female 5:30 AM BOARD CERTIFIED BEHAVIORAL ANALYST Gender Identity Not on file Sexual Orientation Not on file documented as of this encounter Plan of Treatment Upcoming Encounters Date Type Department Care Team (Late Contact Info) Description 09/07/2025 9:15 AM CDT Office Visit [facility] Heart and Vascular At [address] [place] [address] Randal Cooley MD [address] [place] [address] [address] [place], [place] [id number] documented as of this encounter Visit Diagnoses Not on filedocumented in this encounter Additional Health Concerns Infection Onset Date Last Indicated Resolved Time R/O COVID-19 11/08/2019 11/08/2019 11/11/2019 12:3 1 AM CDT R/O COVID-19 02/01/2020 02/01/2020 02/03/2020 2:00 AM BOARD CERTIFIED BEHAVIORAL ANALYST documented as of this encounter Care Teams Glazier Helper Relationship Specialty Start Date End Date Jina Banda MD PCP - General Internal Medicine 06/20/16 12/03/21 documented as of this encounter
--- OUTSIDE RECORDS SUMMARY | 2025-03-03 08:08 | XMS_ITS | Encounter Summary ---
Author Organization [facility] Address [address] [place] [address] Care Team Providers Care Harp Regulator Name Role Phone Jina Banda MD Primary [...] file Legal Sex Female 5:30 AM DISTRIBUTION ANALYST Gender Identity Not on file Sexual Orientation Not on file documented as of this encounter Plan of Treatment Upcoming Encounters Date Type Department Care Team (Late st Contact Info) Description 09/07/2025 9:15 AM CDT Office Visit [facility] Heart and Vascular At [address] [place] [address] Randal Cooley MD [address] [place] [address] [address] [place] [address] documented as of this encounter Visit Diagnoses Diagnosis Iron deficiency anemia, unspecified documented in this encounter Additional Health Concerns Infection Onset Date Last Indicated Resolved Time R/O COVID-19 11/08/2019 11/08/2019 11/11/2019 12:3 1 AM CDT R/O COVID-19 02/01/2020 02/01/2020 02/03/2020 2:00 AM DISTRIBUTION ANALYST documented as of this encounter Care Teams Harp Regulator Relationship Specialty Start Date End Date Jina Banda MD PCP - General Internal Medicine 06/20/16 12/03/21 documented as of this encounter
--- OUTSIDE RECORDS SUMMARY | 2025-03-03 08:08 | XMS_ITS | Encounter Summary ---
Author Organization [facility] Address [address] [place] [address] Care Team Providers Care Equipment Monitor Phototypesetting Name Role Phone Jina Banda MD Primary [...] on file Legal Sex Female 5:30 AM FRUIT OR NUT GROWER Gender Identity Not on file Sexual Orientation Not on file documented as of this encounter Plan of Treatment Upcoming Encounters Date Type Department Care Team (Late st Contact Info) Description 09/07/2025 9:15 AM CDT Office Visit [facility] Heart and Vascular At [address] [place] [address] Randal Cooley MD [address] [place] [address] [address] [place] [address] documented as of this encounter Visit Diagnoses Diagnosis Other screening mammogram- Primary documented in this encounter Additional Health Concerns Infection Onset Date Last Indicated Resolved Time R/O COVID-19 11/08/2019 11/08/2019 11/11/2019 12:3 1 AM CDT R/O COVID-19 02/01/2020 02/01/2020 02/03/2020 2:00 AM FRUIT OR NUT GROWER documented as of this encounter Care Teams Equipment Monitor Phototypesetting Relationship Specialty Start Date End Date Jina Banda MD PCP - General Internal Medicine 06/20/16 12/03/21 documented as of this encounter
--- OUTSIDE RECORDS SUMMARY | 2025-03-03 08:08 | XMS_ITS | Encounter Summary ---
Author Organization [facility] Address [address] [place] [address] Care Team Providers Care Registered Nurse Practitioner Name Role Phone Jina Banda MD Primary Care Provider Unav ailable Encounter Details Date Type Department Care Team (Late st Contact Info) Description 03/19/2007 Outpatient Historical [facility] [address] [place] [address] Malcolm You MD [address] [place] [address] [address] [place] [address] Social History Tobacco Use Types Packs/Day Years Used Date Smoking Tobacco: Never Assessed Comments Unknown Sex and Gender Information Value Date Recorded Sex Assigned at Not on file Legal Sex Female 5:30 AM CHANCERY CLERK Gender Identity Not on file Sexual Orientation Not on file documented as of this encounter Plan of Treatment Upcoming Encounters Date Type Department Care Team (Late Contact Info) Description 09/07/2025 9:15 AM CDT Office Visit [facility] At [address] [place] [address] Randal Cooley MD [address] [place] [address] 2014 [place] [address] documented as of this encounter Visit Diagnoses Not on filedocumented in this encounter Additional Health Concerns Infection Onset Date Last Indicated Resolved Time R/O COVID-19 11/08/2019 11/08/2019 11/11/2019 12:3 1 AM CDT R/O COVID-19 02/01/2020 02/01/2020 02/03/2020 2:00 AM CHANCERY CLERK documented as of this encounter Care Teams Registered Nurse Practitioner Relationship Specialty Start Date End Date Jina Banda MD PCP - General Internal Medicine 06/20/16 12/03/21 documented as of this encounter
--- OUTSIDE RECORDS SUMMARY | 2025-03-03 08:08 | XMS_ITS | Encounter Summary ---
Author Organization [facility] Address [address] [place] [address] Care Team Providers Care Railroad Operator Name Role Phone Jina Banda MD Primary Care Provider Unav ailable Encounter Details Date Type Department Care Team (Late st Contact Info) Description 08/02/2014 Nurse Triage Report [facility] Sheeba Sotomayor, RN [address] [address] Social History Tobacco Use Types Packs/Day Years Used Date Smoking Tobacco: Never Smokeless Tobacco: Never Alcohol Use Standard Drinks/Week Comments No 0 (1 standard drink = 0.6 oz pur e alcohol) Comments No Sex and Gender Information Value Date Recorded Sex Assigned at Not on file Legal Sex Female 5:30 AM SOUND ENGINEERING TECHNICIAN Gender Identity Not on file Sexual [...] Banda <<<<<<<< TRIAGE NOTE >>>>>>>> Triage Note: Bulking Machine Operator Sheeba Sotomayor added this note on Aug 02 2014 11:41PM: Spouse is in an [id number] ED and requesting information on pre-auth for [...] [facility] At [address] [place] [address] Randal Cooley MD [address] [place] [address] 2014 [place] [address] documented as of this encounter Visit Diagnoses Not on filedocumented in this encounter Additional Health Concerns Infection Onset Date Last Indicated Resolved Time R/O COVID-19 11/08/2019 11/08/2019 11/11/2019 12:3 1 AM CDT R/O COVID-19 02/01/2020 02/01/2020 02/03/2020 2:00 AM SOUND ENGINEERING TECHNICIAN documented as of this encounter Care Teams Railroad Operator Relationship Specialty Start Date End Date Jina Banda MD PCP - General Internal Medicine 06/20/16 12/03/21 documented as of this encounter
--- OUTSIDE RECORDS SUMMARY | 2025-03-03 08:08 | XMS_ITS | Encounter Summary ---
Author Organization [facility] Address [address] [place] [address] Care Team Providers Care Contract Accountant Name Role Phone Jina Banda MD Primary Care Provider Unav ailable Encounter Details Date Type Department Care Team (Late st Contact Info) Description 05/13/2004 Outpatient Historical [facility] Internal Medicine - [facility] [address] [address] [facility] [address] [place] [address] Jina Banda MD NO ADDRESS ON FILE Social History Tobacco Use Types Packs/Day Years Used Date Smoking Tobacco: Never Assessed Comments Unknown Sex and Gender Information Value Date Recorded Sex Assigned at Not on file Legal Sex Female 5:30 AM PIE BOTTOMER Gender Identity Not on file Sexual Orientation Not on file documented as of this encounter Plan of Treatment Upcoming Encounters Date Type Department Care Team (Late Contact Info) Description 09/07/2025 9:15 AM CDT Office Visit [facility] At [address] [place] [address] Randal Cooley MD [address] [place] [address] [address] [place] [address] documented as of this encounter Visit Diagnoses Not on filedocumented in this encounter Additional Health Concerns Infection Onset Date Last Indicated Resolved Time R/O COVID-19 11/08/2019 11/08/2019 11/11/2019 12:3 1 AM CDT R/O COVID-19 02/01/2020 02/01/2020 02/03/2020 2:00 AM PIE BOTTOMER documented as of this encounter Care Teams Contract Accountant Relationship Specialty Start Date End Date Jina Banda MD PCP - General Internal Medicine 06/20/16 12/03/21 documented as of this encounter
--- OUTSIDE RECORDS SUMMARY | 2025-03-03 08:08 | XMS_ITS | Encounter Summary ---
Author Organization [facility] Address [address] [place] [address] Care Team Providers Care Hog Stomach Preparer Name Role Phone Jina Banda MD Primary Care Provider Unav ailable Encounter Details Date Type Department Care Team (Late st Contact Info) Description 03/23/2006 Orders Only [facility] Internal Medicine - [facility] [address] [address] [facility] [address] [place] [address] Jina Banda MD NO ADDRESS ON FILE Social History Tobacco Use Types Packs/Day Years Used Date Smoking Tobacco: Never Assessed Comments Unknown Sex and Gender Information Value Date Recorded Sex Assigned at Not on file Legal Sex Female 5:30 AM EMERGENCY MEDICAL DISPATCHER Gender Identity Not on file Sexual Orientation Not on file documented as of this encounter Progress Notes * Jina Banda MD - 08/10/2007 10:20 AM CDT TIME:10:06 am PATIENT`S HOME PHONE: PATIENT`S WORK PHONE: PATIENT`S INSURANCE: [facility] WHO TOOK THE CALL: Tiera March C GENERAL INFORMATION WHO CALLED: Pharmacy called. fax PHARMACY NUMBER: [phone] SECTION 1: REQUESTED ACTION nedra 03/23/06 at [facility] [address] [place] [address] Randal Cooley MD [address] [place] [address] [address] [place] [address] documented as of this encounter Visit Diagnoses Not on filedocumented in this encounter Additional Health Concerns Infection Onset Date Last Indicated Resolved Time R/O COVID-19 11/08/2019 11/08/2019 11/11/2019 12:3 1 AM CDT R/O COVID-19 02/01/2020 02/01/2020 02/03/2020 2:00 AM EMERGENCY MEDICAL DISPATCHER documented as of this encounter Care Teams Hog Stomach Preparer Relationship Specialty Start Date End Date Jina Banda MD PCP - General Internal Medicine 06/20/16 12/03/21 documented as of this encounter
--- OUTSIDE RECORDS SUMMARY | 2025-03-03 08:08 | XMS_ITS | Encounter Summary ---
Author Organization [facility] Address [address] [place] [address] Care Team Providers Care Vest Tailor Name Role Phone Jina Banda MD Primary Care Provider Unav ailable Encounter Details Date Type Department Care Team (Latest Contact Info) Description 10/23/2000 Outpatient Historical [facility] Chato Aguilera MD [address] [place] [address] Other screening mammogram (Primary Dx) Social History Tobacco Use Types Packs/Day Years Used Date Smoking Tobacco: Never Assessed Comments Unknown Sex and Gender Information Value Date Recorded Sex Assigned at Not on file Legal Sex Female 5:30 AM BANK MESSENGER Gender Identity Not on file Sexual Orientation Not on file documented as of this encounter Plan of Treatment Upcoming Encounters Date Type Department Care Team (Late st Contact Info) Description 09/07/2025 9:15 AM CDT Office Visit [facility] Heart and Vascular At [address] [place] [address] Randal Cooley MD [address] [place] [address] [address] [place], [place] [id number] documented as of this encounter Visit Diagnoses Diagnosis Other screening mammogram- Primary documented in this encounter Additional Health Concerns Infection Onset Date Last Indicated Resolved Time R/O COVID-19 11/08/2019 11/08/2019 11/11/2019 12:3 1 AM CDT R/O COVID-19 02/01/2020 02/01/2020 02/03/2020 2:00 AM BANK MESSENGER documented as of this encounter Care Teams Vest Tailor Relationship Specialty Start Date End Date Jina Banda MD PCP - General Internal Medicine 06/20/16 12/03/21 documented as of this encounter
--- OUTSIDE RECORDS SUMMARY | 2025-03-03 08:08 | XMS_ITS | Encounter Summary ---
Author Organization [facility] Address [address] [place] [address] Care Team Providers Care Business Process Lead Name Role Phone Jina Banda MD Primary Care Provider Unav ailable Encounter Details Date Type Department Care Team (Late st Contact Info) Description 10/06/2002 Outpatient Historical [facility] Internal Medicine - [facility] [address] [address] [facility] [address] [place] [address] Jina Banda MD NO ADDRESS ON FILE Social History Tobacco Use Types Packs/Day Years Used Date Smoking Tobacco: Never Assessed Comments Unknown Sex and Gender Information Value Date Recorded Sex Assigned at Not on file Legal Sex Female 5:30 AM SALAD CHEF Gender Identity Not on file Sexual Orientation Not on file documented as of this encounter Plan of Treatment Upcoming Encounters Date Type Department Care Team (Late Contact Info) Description 09/07/2025 9:15 AM CDT Office Visit [facility] Heart and Vascular At [address] [place] [address] Randal Cooley MD [address] [place] [address] [address] [place], [place] [id number] documented as of this encounter Visit Diagnoses Not on filedocumented in this encounter Additional Health Concerns Infection Onset Date Last Indicated Resolved Time R/O COVID-19 11/08/2019 11/08/2019 11/11/2019 12:3 1 AM CDT R/O COVID-19 02/01/2020 02/01/2020 02/03/2020 2:00 AM SALAD CHEF documented as of this encounter Care Teams Business Process Lead Relationship Specialty Start Date End Date Jina Banda MD PCP - General Internal Medicine 06/20/16 12/03/21 documented as of this encounter
--- OUTSIDE RECORDS SUMMARY | 2025-03-03 08:08 | XMS_ITS | Encounter Summary ---
Author Organization [facility] Address [address] [place] [address] Care Team Providers Care Pss Delivery Professional Name Role Phone Jina Banda MD Primary [...] file Legal Sex Female 5:30 AM TOOL MAKER BENCH Gender Identity Not on file Sexual Orientation Not on file documented as of this encounter Plan of Treatment Upcoming Encounters Date Type Department Care Team (Late st Contact Info) Description 09/07/2025 9:15 AM CDT Office Visit [facility] [address] [place] [phone] Randal Cooley MD [address] [place] [address] 2014 [place] [address] documented as of this encounter Visit Diagnoses Diagnosis Heat exhaustion, unspecified- Primary documented in this encounter Additional Health Concerns Infection Onset Date Last Indicated Resolved Time R/O COVID-19 11/08/2019 11/08/2019 11/11/2019 12:3 1 AM CDT R/O COVID-19 02/01/2020 02/01/2020 02/03/2020 2:00 AM TOOL MAKER BENCH documented as of this encounter Care Teams Pss Delivery Professional Relationship Specialty Start Date End Date Jina Banda MD PCP - General Internal Medicine 06/20/16 12/03/21 documented as of this encounter
--- OUTSIDE RECORDS SUMMARY | 2025-03-03 08:08 | XMS_ITS | Encounter Summary ---
Author Organization [facility] Address [address] [place] [address] Care Team Providers Care Right Of Way Agent Name Role Phone Jina Banda MD Primary Care Provider Unav ailable Encounter Details Date Type Department Care Team (Latest Contact Info) Description 11/07/1999 Outpatient Historical [facility] Chato Aguilera MD [address] [place] [phone] Other screening mammogram (Primary Dx) Social History Tobacco Use Types Packs/Day Years Used Date Smoking Tobacco: Never Assessed Comments Unknown Sex and Gender Information Value Date Recorded Sex Assigned at Not on file Legal Sex Female 5:30 AM LIFTS AND CRANES INSPECTOR Gender Identity Not on file Sexual Orientation Not on file documented as of this encounter Plan of Treatment Upcoming Encounters Date Type Department Care Team (Late st Contact Info) Description 09/07/2025 9:15 AM CDT Office Visit [facility] At [address] [place] [address] Randal Cooley MD [address] [place] [address] 2014 [place], [place] [phone] documented as of this encounter Visit Diagnoses Diagnosis Other screening mammogram- Primary documented in this encounter Additional Health Concerns Infection Onset Date Last Indicated Resolved Time R/O COVID-19 11/08/2019 11/08/2019 11/11/2019 12:3 1 AM CDT R/O COVID-19 02/01/2020 02/01/2020 02/03/2020 2:00 AM LIFTS AND CRANES INSPECTOR documented as of this encounter Care Teams Right Of Way Agent Relationship Specialty Start Date End Date Jina Banda MD PCP - General Internal Medicine 06/20/16 12/03/21 documented as of this encounter
--- OUTSIDE RECORDS SUMMARY | 2025-03-03 08:08 | XMS_ITS | Encounter Summary ---
Author Organization [facility] Address [address] [place] [address] Care Team Providers Care Dental Instructor Name Role Phone Jina Banda MD Primary Care Provider Unav ailable Encounter Details Date Type Department Care Team (Late st Contact Info) Description 06/16/2006 Outpatient Historical [facility] Internal Medicine - [facility] [address] [address] [facility] [address] [place] [address] Jina Banda MD NO ADDRESS ON FILE Social History Tobacco Use Types Packs/Day Years Used Date Smoking Tobacco: Never Assessed Comments Unknown Sex and Gender Information Value Date Recorded Sex Assigned at Not on file Legal Sex Female 5:30 AM BEHAVIORAL PEDIATRICIAN Gender Identity Not on file Sexual Orientation [...] Visit [facility] [address] [place] [address] Randal Cooley MD [address] [place] [address] [address] [place], [place] [phone] documented as of this encounter Visit Diagnoses Not on filedocumented in this encounter Additional Health Concerns Infection Onset Date Last Indicated Resolved Time R/O COVID-19 11/08/2019 11/08/2019 11/11/2019 12:3 1 AM CDT R/O COVID-19 02/01/2020 02/01/2020 02/03/2020 2:00 AM BEHAVIORAL PEDIATRICIAN documented as of this encounter Care Teams Dental Instructor Relationship Specialty Start Date End Date Jina Banda MD PCP - General Internal Medicine 06/20/16 12/03/21 documented as of this encounter
--- OUTSIDE RECORDS SUMMARY | 2025-03-03 08:08 | XMS_ITS | Encounter Summary ---
Author Organization [facility] Address [address] [place] [address] Care Team Providers Care Adjunct Lecturer Name Role Phone Jina Banda MD Primary Care Provider Unav ailable Encounter Details Date Type Department Care Team (Latest Contact Info) Description 10/25/1998 Outpatient Historical [facility] Chato Aguilera MD [address] [place] [phone] Other screening mammogram (Primary Dx) Social History Tobacco Use Types Packs/Day Years Used Date Smoking Tobacco: Never Assessed Comments Unknown Sex and Gender Information Value Date Recorded Sex Assigned at Not on file Legal Sex Female 5:30 AM DIRECTOR SELECTION AND ADMINISTRATION Gender Identity Not on file Sexual Orientation Not on file documented as of this encounter Plan of Treatment Upcoming Encounters Date Type Department Care Team (Late st Contact Info) Description 09/07/2025 9:15 AM CDT Office Visit [facility] At [address] [place] [phone] Randal Cooley MD [address] [place] [address] 2014 [place], [place] [phone] documented as of this encounter Visit Diagnoses Diagnosis Other screening mammogram- Primary documented in this encounter Additional Health Concerns Infection Onset Date Last Indicated Resolved Time R/O COVID-19 11/08/2019 11/08/2019 11/11/2019 12:3 1 AM CDT R/O COVID-19 02/01/2020 02/01/2020 02/03/2020 2:00 AM DIRECTOR SELECTION AND ADMINISTRATION documented as of this encounter Care Teams Adjunct Lecturer Relationship Specialty Start Date End Date Jina Banda MD PCP - General Internal Medicine 06/20/16 12/03/21 documented as of this encounter
--- OUTSIDE RECORDS SUMMARY | 2025-03-03 08:08 | XMS_ITS | Encounter Summary ---
Author Organization [facility] Address [address] [place] [phone] Care Team Providers Care Faculty Administrator Name Role Phone Jina Banda MD Primary Care Provider Unav ailable Encounter Details Date Type Department Care Team (Latest Contact Info) Description 04/14/2005 Inpatient Historical [facility] IN A BED Jack Thompson MD [address] [place] [phone] Jill Moran MD [address] [place] [phone] INFLUENZA WITH PNEUMONIA (Primary Dx) Social History Tobacco Use Types Packs/Day Years Used Date Smoking Tobacco: Never Assessed Comments Unknown Sex and Gender Information Value Date Recorded Sex Assigned at Not on file Legal Sex Female 5:30 AM ART OBJECTS SUPERVISOR Gender Identity Not on file Sexual Orientation Not on file documented as of this encounter Plan of Treatment Upcoming Encounters Date Type Department Care Team (Late st Contact Info) Description 09/07/2025 9:15 AM CDT Office Visit [facility] At [address] [place] [phone] Randal Cooley MD [address] [place] [address] 2014 [place] [address] documented as of this encounter Procedures Procedure Name Priority Date/Time Associated Diagnosis Comments URINALYSIS WITH REFLEX CULTURE Routine 04/15/2005 8:55 AM ART OBJECTS SUPERVISOR URINALYSIS W/REFLEX MICROSCOPIC Routine 04/15/2005 8:55 AM ART OBJECTS SUPERVISOR MONONUCLEOSIS SCREEN Routine 04/14/2005 8:50 PM ART OBJECTS SUPERVISOR URINALYSIS WITH REFLEX CULTURE Routine 04/14/2005 7:01 PM ART OBJECTS SUPERVISOR URINALYSIS W/REFLEX MICROSCOPIC Routine 04/14/2005 7:01 PM ART OBJECTS SUPERVISOR CBC WITH DIFFERENTIAL Routine 04/14/2005 5:25 PM ART OBJECTS SUPERVISOR CBC WITH DIFFERENTIAL Routine 04/14/2005 5:25 PM ART OBJECTS SUPERVISOR TSH Routine 04/14/2005 5:25 PM ART OBJECTS SUPERVISOR COMPREHENSIVE METABOLIC PANEL Routine 04/14/2005 5:25 PM ART OBJECTS SUPERVISOR documented in this encounter Results * (ABNORMAL) URINALYSIS (04/15/2005 8:55 AM ART OBJECTS SUPERVISOR) COLOR UA Colorless INTERFACE SYSTEM CLARITY UA [...] 2-5 /HPF INTERFACE SYSTEM 04/15/2005 8:55 AM ART OBJECTS SUPERVISOR us Jill Moran MD URINE ORDERABLES Final Result INTERFACE SYSTEM Refer to clinic/hospital department * URINALYSIS WITH REFLEX CULTURE (04/15/2005 8:55 AM ART OBJECTS SUPERVISOR) URINE CULTURE ORDER Culture ordered INTERFACE SYSTEM Comment: Criteria for a reflex culture include one or more of the following: Abn ormal nitrite, leukocyte esterase, WBCs or RBCs. Lack of qualifying criteria does not exclude the possiblity of a urinary tract infection. Dilute urine, drug interference, etc. may decrease the sensitivity of the criteria analytes. 04/15/2005 8:55 AM ART OBJECTS SUPERVISOR Jill Moran MD URINE ORDERABLES Final Result Performing Organization Address [facility] Phone Number INTERFACE SYSTEM Refer to clinic/hospital department * MONONUCLEOSIS SCREEN (04/14/2005 8:50 PM ART OBJECTS SUPERVISOR) Pathologist [facility] MONONUCLEOSIS SCREEN Negative Negative INTERFACE SYSTEM 04/14/2005 8:50 PM ART OBJECTS SUPERVISOR Jill Moran MD HEMATOLOGY ORDERABLES Final Re sult Performing Organization Address [facility] Phone Number INTERFACE SYSTEM Refer to clinic/hospital department * URINALYSIS (04/14/2005 7:01 PM ART OBJECTS SUPERVISOR) COLOR UA Yellow INTERFACE SYSTEM CLARITY UA [...] Negative Negative INTERFACE SYSTEM 04/14/2005 7:01 PM ART OBJECTS SUPERVISOR Jina Banda MD URINE ORDERABLES Final Resu lt Performing Organization Address [facility] Phone Number INTERFACE SYSTEM Refer to clinic/hospital department * URINALYSIS WITH REFLEX CULTURE (04/14/2005 7:01 PM ART OBJECTS SUPERVISOR) URINE CULTURE ORDER Not indicated INTERFACE SYSTEM Comment: Criteria for a reflex culture include one or more of the following: Abn ormal nitrite, leukocyte esterase, WBCs or RBCs. Lack of qualifying criteria does not exclude the possiblity of a urinary tract infection. Dilute urine, drug interference, etc. may decrease the sensitivity of the criteria analytes. 04/14/2005 7:01 PM ART OBJECTS SUPERVISOR Jina Banda MD URINE ORDERABLES Final Resu lt Performing Organization Address [facility] Phone Number INTERFACE SYSTEM Refer to clinic/hospital department * CBC WITH DIFFERENTIAL (04/14/2005 5:25 PM ART OBJECTS SUPERVISOR) NEUTROPHILS 69 45 - 70 % INTERFAC [...] 0.20 K/uL INTERFACE SYSTEM 04/14/2005 5:25 PM ART OBJECTS SUPERVISOR Mervin Butcher DO HEMATOLOGY ORDERABLES Final R esult Performing Organization Address [facility] Phone Number INTERFACE SYSTEM Refer to clinic/hospital department * (ABNORMAL) CBC WITH DIFFERENTIAL (04/14/2005 5:25 PM ART OBJECTS SUPERVISOR) WBC 3.5(L) 4.0 - 9.8 K/uL INTERFACE [...] 12.4 fL INTERFACE SYSTEM 04/14/2005 5:25 PM ART OBJECTS SUPERVISOR Mervin Butcher DO HEMATOLOGY ORDERABLES Final R esult Performing Organization Address [facility] Phone Number INTERFACE SYSTEM Refer to clinic/hospital department * TSH (04/14/2005 5:25 PM ART OBJECTS SUPERVISOR) TSH 0.45 0.27 - 4.20 uU/mL INTERFACE SYSTEM 04/14/2005 5:25 PM ART OBJECTS SUPERVISOR Mervin Butcher DO CHEMISTRY ORDERABLES Final Re sult Performing Organization Address [facility] Phone Number INTERFACE SYSTEM Refer to clinic/hospital department * (ABNORMAL) COMPREHENSIVE METABOLIC PANEL (04/14/2005 5:25 PM ART OBJECTS SUPERVISOR) GLUCOSE 102 65 - 109 mg/dL INTERFACE [...] 30 mmol/L INTERFACE SYSTEM 04/14/2005 5:25 PM ART OBJECTS SUPERVISOR Mervin Butcher DO CHEMISTRY ORDERABLES Final Re sult Performing Organization Address [facility]/ZIP Co de Phone Number INTERFACE SYSTEM Refer to clinic/hospital department documented in this encounter Visit Diagnoses Diagnosis Influenza with pneumonia- Primary documented in this encounter Additional Health Concerns Infection Onset Date Last Indicated Resolved Time R/O COVID-19 11/08/2019 11/08/2019 11/11/2019 12:3 1 AM CDT R/O COVID-19 02/01/2020 02/01/2020 02/03/2020 2:00 AM ART OBJECTS SUPERVISOR documented as of this encounter Care Teams Faculty Administrator Relationship Specialty Start Date End Date Jina Banda MD PCP - General Internal Medicine 06/20/16 12/03/21 documented as of this encounter
--- OUTSIDE RECORDS SUMMARY | 2025-03-03 08:08 | XMS_ITS | Encounter Summary ---
Author Organization [facility] Address [address] [place] [address] Care Team Providers Care Fiber Picker Name Role Phone Jina Banda MD Primary Care Provider Unav ailable Encounter Details Date Type Department Care Team (Late st Contact Info) Description 07/19/2002 Outpatient Historical [facility] Internal Medicine - [facility] [address] [address] [facility] [address] [place] [address] Jina Banda MD NO ADDRESS ON FILE Social History Tobacco Use Types Packs/Day Years Used Date Smoking Tobacco: Never Assessed Comments Unknown Sex and Gender Information Value Date Recorded Sex Assigned at Not on file Legal Sex Female 5:30 AM VALVE SEATER OPERATOR Gender Identity Not on file Sexual Orientation Not on file documented as of this encounter Plan of Treatment Upcoming Encounters Date Type Department Care Team (Late Contact Info) Description 09/07/2025 9:15 AM CDT Office Visit [facility] At [address] [place] [address] Randal Cooley MD [address] [place] [address] 2014 [place], [place] [phone] documented as of this encounter Visit Diagnoses Not on filedocumented in this encounter Additional Health Concerns Infection Onset Date Last Indicated Resolved Time R/O COVID-19 11/08/2019 11/08/2019 11/11/2019 12:3 1 AM CDT R/O COVID-19 02/01/2020 02/01/2020 02/03/2020 2:00 AM VALVE SEATER OPERATOR documented as of this encounter Care Teams Fiber Picker Relationship Specialty Start Date End Date Jina Banda MD PCP - General Internal Medicine 06/20/16 12/03/21 documented as of this encounter
--- OUTSIDE RECORDS SUMMARY | 2025-03-03 08:08 | XMS_ITS | Encounter Summary ---
Author Organization [facility] Address [address] [place] [address] Care Team Providers Care Engineering Professionals Name Role Phone Jina Banda MD Primary Care Provider Unav ailable Encounter Details Date Type Department Care Team (Late st Contact Info) Description 01/14/2008 Outpatient Historical [facility], [address] Jina Banda MD NO ADDRESS ON [...] file Legal Sex Female 5:30 AM WATER TREATMENT PLANT ENGINEER Gender Identity Not on file Sexual Orientation Not on file documented as of this encounter Plan of Treatment Upcoming Encounters Date Type Department Care Team (Late st Contact Info) Description 09/07/2025 9:15 AM CDT Office Visit [facility] At [address] [place] [address] Randal Cooley MD [address] [place] [address] 2014 [place] [address] documented as of this encounter Visit Diagnoses Diagnosis Urinary tract infection, site not specified documented in this encounter Additional Health Concerns Infection Onset Date Last Indicated Resolved Time R/O COVID-19 11/08/2019 11/08/2019 11/11/2019 12:3 1 AM CDT R/O COVID-19 02/01/2020 02/01/2020 02/03/2020 2:00 AM WATER TREATMENT PLANT ENGINEER documented as of this encounter Care Teams Engineering Professionals Relationship Specialty Start Date End Date Jina Banda MD PCP - General Internal Medicine 06/20/16 12/03/21 documented as of this encounter
--- OUTSIDE RECORDS SUMMARY | 2025-03-03 08:08 | XMS_ITS | Encounter Summary ---
Author Organization [facility] Address [address] [place] [address] Care Team Providers Care Supervisor Tank Storage Name Role Phone Jina Banda MD Primary [...] on file Legal Sex Female 5:30 AM ACTIVITIES AIDE Gender Identity Not on file Sexual Orientation Not on file documented as of this encounter Plan of Treatment Upcoming Encounters Date Type Department Care Team (Late st Contact Info) Description 09/07/2025 9:15 AM CDT Office Visit [facility] At [address] [place] [address] Randal Cooley MD [address] [place] [address] 2014 [place] [address] documented as of this encounter Visit Diagnoses Diagnosis Pain in joint, pelvic region and thigh- Primary documented in this encounter Additional Health Concerns Infection Onset Date Last Indicated Resolved Time R/O COVID-19 11/08/2019 11/08/2019 11/11/2019 12:3 1 AM CDT R/O COVID-19 02/01/2020 02/01/2020 02/03/2020 2:00 AM ACTIVITIES AIDE documented as of this encounter Care Teams Supervisor Tank Storage Relationship Specialty Start Date End Date Jina Banda MD PCP - General Internal Medicine 06/20/16 12/03/21 documented as of this encounter
--- OUTSIDE RECORDS SUMMARY | 2025-03-03 08:08 | XMS_ITS | Encounter Summary ---
Author Organization [facility] Address [address] [place] [address] Care Team Providers Care Requirements Engineer Name Role Phone Jina Banda MD Primary Care Provider Unav ailable Encounter Details Date Type Department Care Team (Late st Contact Info) Description 12/09/2006 Orders Only [facility] Internal Medicine - [facility] [address] [address] [facility] [address] [place] [address] Jina Banda MD NO ADDRESS ON FILE Social History Tobacco Use Types Packs/Day Years Used Date Smoking Tobacco: Never Assessed Comments Unknown Sex and Gender Information Value Date Recorded Sex Assigned at Not on file Legal Sex Female 5:30 AM STRATEGIC SOLUTIONS CONSULTANT Gender Identity Not on file Sexual Orientation Not on file documented as of this encounter Progress Notes * Jina Banda MD - 07/30/2007 6:42 PM CDT TIME:09:45 am PATIENT`S HOME PHONE: PATIENT`S WORK PHONE: PATIENT`S INSURANCE: [facility] WHO TOOK THE CALL: Natasha Krishnan GENERAL INFORMATION PCP: [facility] NUMBER: [phone] SECTION 1: REQUESTED ACTION demetrio 12/09/06 at [...] Description 09/07/2025 9:15 AM CDT Office Visit [facility] V[facility] At [address] [place] [address] Randal Cooley MD [address] [place] [address] 2014 [place] [address] documented as of this encounter Visit Diagnoses Not on filedocumented in this encounter Additional Health Concerns Infection Onset Date Last Indicated Resolved Time R/O COVID-19 11/08/2019 11/08/2019 11/11/2019 12:3 1 AM CDT R/O COVID-19 02/01/2020 02/01/2020 02/03/2020 2:00 AM STRATEGIC SOLUTIONS CONSULTANT documented as of this encounter Care Teams Requirements Engineer Relationship Specialty Start Date End Date Jina Banda MD PCP - General Internal Medicine 06/20/16 12/03/21 documented as of this encounter
--- OUTSIDE RECORDS SUMMARY | 2025-03-03 08:08 | XMS_ITS | Encounter Summary ---
Author Organization [facility] Address [address] [place] [address] Care Team Providers Care Concrete Building Assembler Name Role Phone Jina Banda MD Primary Care Provider Unav ailable Encounter Details Date Type Department Care Team (Late st Contact Info) Description 05/26/2007 Outpatient Historical [facility] Internal Medicine - [facility] [phone] [facility] [address] [place] [address] Jina Banda MD NO ADDRESS ON FILE Acute Pharyngitis Social History Tobacco Use Types Packs/Day Years Used Date Smoking Tobacco: Never Assessed Comments Unknown Sex and Gender Information Value Date Recorded Sex Assigned at Not on file Legal Sex Female 5:30 AM PHARMACOGNOSIST Gender Identity Not on file Sexual Orientation Not on file documented as of this encounter Plan of Treatment Upcoming Encounters Date Type Department Care Team (Late st Contact Info) Description 09/07/2025 9:15 AM CDT Office Visit [facility] At [address] [place] [address] Randal Cooley MD [address] [place] [address] 2014 [place] [address] documented as of this encounter Procedures Procedure Name Priority Date/Time Associated Diagnosis Comments CBC WITH DIFFERENTIAL Routine 05/26/2007 4:10 PM CDT TSH Routine 05/26/2007 4:10 PM CDT documented in this encounter Results * (ABNORMAL) CBC WITH DIFFERENTIAL (05/26/2007 4:10 PM CDT) PLATELETS 321 140 - 350 K/uL [facility] HEMOGLOBIN 11.7(L) 11.8 - 14.8 g/dL [facility] RDW 14.4 11.5 - 14.5 % [facility] WBC 6.6 4.0 - 9.8 K/uL [facility] MCH 28.1 27.2 - 32.6 pg [facility] MPV 10.8 9.3 - 12.4 fL [facility] HEMATOCRIT 36.7 35.5 - 44.0 % [facility] RDW-STDEV 46.8 37.1 - 48.7 fL [facility] RBC 4.16 3.90 - 4.90 M/uL [facility] MCHC 31.9 31.5 - 35.5 % [facility] MCV 88.2 82.0 - 99.0 fL [facility] EOSINOPHILS 2 0 - 7 % [facility] EOSINOPHIL ABSOLUTE 0.13 0.00 - 0.70 K/uL [facility] LYMPHOCYTES 26 16 - 45 % [facility] LYMPHOCYTE ABSOLUTE 1.74 0.70 - 4.50 K/uL [facility] BASOPHILS 1 0 - 2 % [facility] BASOPHILS ABSOLUTE 0.04 0.00 - 0.20 K/uL [facility] MONOCYTES 8 3 - 13 % [facility] MONOCYTE ABSOLUTE 0.52 0.10 - 1.30 K/uL [facility] NEUTROPHILS 63 45 - 70 % [facility] NEUTROPHIL ABSOLUTE 4.18 1.90 - 7.00 K/uL [facility] Blood specimen (specimen) 05/26/2007 4:10 PM CDT 05/26/2007 8:29 PM CDT us Jina Banda MD HEMATOLOGY ORDERABLES Edite d INTERFACE SYSTEM Refer to clinic/hospital department [facility] [address] [place] [address] * (ABNORMAL) TSH (05/26/2007 4:10 PM CDT) TSH 10.66(H) 0.27 - 4.20 uU/mL [facility] Blood specimen (specimen) 05/26/2007 4:10 PM CDT 05/26/2007 8:29 PM CDT us Jina Banda MD CHEMISTRY ORDERABLES Final Result Performing Organization Address [facility] Co de Phone Number [facility] [address] [place], [place] [address] documented in this encounter Visit Diagnoses Diagnosis Acute pharyngitis documented in this encounter Additional Health Concerns Infection Onset Date Last Indicated Resolved Time R/O COVID-19 11/08/2019 11/08/2019 11/11/2019 12:3 1 AM CDT R/O COVID-19 02/01/2020 02/01/2020 02/03/2020 2:00 AM PHARMACOGNOSIST documented as of this encounter Care Teams Concrete Building Assembler Relationship Specialty Start Date End Date Jina Banda MD PCP - General Internal Medicine 06/20/16 12/03/21 documented as of this encounter
--- OUTSIDE RECORDS SUMMARY | 2025-03-03 08:08 | XMS_ITS | Encounter Summary ---
Author Organization [facility] Address [address] [place] [address] Care Team Providers Care Sales Professional Bilingual Name Role Phone Jina Banda MD Primary Care Provider Unav ailable Encounter Details Date Type Department Care Team (Late st Contact Info) Description 12/20/2001 Outpatient Historical [facility] Internal Medicine - [facility] [address] [address] [facility] [address] [place] [address] Jina Banda MD NO ADDRESS ON FILE Social History Tobacco Use Types Packs/Day Years Used Date Smoking Tobacco: Never Assessed Comments Unknown Sex and Gender Information Value Date Recorded Sex Assigned at Not on file Legal Sex Female 5:30 AM SUPERVISOR MIXING Gender Identity Not on file Sexual Orientation Not on file documented as of this encounter Plan of Treatment Upcoming Encounters Date Type Department Care Team (Late Contact Info) Description 09/07/2025 9:15 AM CDT Office Visit [facility] Heart and Vascular At [address] [place] [address] Randal Cooley MD [address] [place] [address] 2014 [place], [place] [phone] documented as of this encounter Visit Diagnoses Not on filedocumented in this encounter Additional Health Concerns Infection Onset Date Last Indicated Resolved Time R/O COVID-19 11/08/2019 11/08/2019 11/11/2019 12:3 1 AM CDT R/O COVID-19 02/01/2020 02/01/2020 02/03/2020 2:00 AM SUPERVISOR MIXING documented as of this encounter Care Teams Sales Professional Bilingual Relationship Specialty Start Date End Date Jina Banda MD PCP - General Internal Medicine 06/20/16 12/03/21 documented as of this encounter
--- OUTSIDE RECORDS SUMMARY | 2025-03-03 08:08 | XMS_ITS | Encounter Summary ---
Author Organization [facility] Address [address] [place] [address] Care Team Providers Care Border Machine Operator Name Role Phone Jina Banda MD Primary Care Provider Unav ailable Encounter Details Date Type Department Care Team (Late st Contact Info) Description 04/18/2004 Outpatient Historical [facility] Internal Medicine - [facility] [address] [id number] [facility] [address] [place] [address] Jina Banda MD NO ADDRESS ON FILE Social History Tobacco Use Types Packs/Day Years Used Date Smoking Tobacco: Never Assessed Comments Unknown Sex and Gender Information Value Date Recorded Sex Assigned at Not on file Legal Sex Female 5:30 AM COMMERCIAL ARTIST Gender Identity Not on file Sexual Orientation Not on file documented as of this encounter Plan of Treatment Upcoming Encounters Date Type Department Care Team (Late Contact Info) Description 09/07/2025 9:15 AM CDT Office Visit [facility] Heart and Vascular At [address] 2014 [place] [address] Randal Cooley MD [address] [place] [address] 2014 [place], [place] [phone] documented as of this encounter Visit Diagnoses Not on filedocumented in this encounter Additional Health Concerns Infection Onset Date Last Indicated Resolved Time R/O COVID-19 11/08/2019 11/08/2019 11/11/2019 12:3 1 AM CDT R/O COVID-19 02/01/2020 02/01/2020 02/03/2020 2:00 AM COMMERCIAL ARTIST documented as of this encounter Care Teams Border Machine Operator Relationship Specialty Start Date End Date Jina Banda MD PCP - General Internal Medicine 06/20/16 12/03/21 documented as of this encounter
--- OUTSIDE RECORDS SUMMARY | 2025-03-03 08:08 | XMS_ITS | Encounter Summary ---
Author Organization [facility] Address [address] [place] [address] Care Team Providers Care Senior Java Web Developer Name Role Phone Jina Banda MD Primary Care Provider Unav ailable Encounter Details Date Type Department Care Team (Late st Contact Info) Description 04/25/2004 Outpatient Historical [facility] Internal Medicine - [facility] [address] [address] [facility] [address] [place] [address] Jina Banda MD NO ADDRESS ON FILE Social History Tobacco Use Types Packs/Day Years Used Date Smoking Tobacco: Never Assessed Comments Unknown Sex and Gender Information Value Date Recorded Sex Assigned at Not on file Legal Sex Female 5:30 AM BLOWING WEASAND Gender Identity Not on file Sexual Orientation Not on file documented as of this encounter Plan of Treatment Upcoming Encounters Date Type Department Care Team (Late Contact Info) Description 09/07/2025 9:15 AM CDT Office Visit [facility] Heart and Vascular At [address] 2014 [place] [address] Randal Cooley MD [address] [place] [address] 2014 [place], [place] [phone] documented as of this encounter Visit Diagnoses Not on filedocumented in this encounter Additional Health Concerns Infection Onset Date Last Indicated Resolved Time R/O COVID-19 11/08/2019 11/08/2019 11/11/2019 12:3 1 AM CDT R/O COVID-19 02/01/2020 02/01/2020 02/03/2020 2:00 AM BLOWING WEASAND documented as of this encounter Care Teams Senior Java Web Developer Relationship Specialty Start Date End Date Jina Banda MD PCP - General Internal Medicine 06/20/16 12/03/21 documented as of this encounter
--- OUTSIDE RECORDS SUMMARY | 2025-03-03 08:08 | XMS_ITS | Encounter Summary ---
Author Organization [facility] Address [address] [place] [address] Care Team Providers Care Braided Band Assembler Name Role Phone Jina Banda MD Primary Care Provider Unav ailable Encounter Details Date Type Department Care Team (Late st Contact Info) Description 03/03/2006 Orders Only [facility] Internal Medicine - [facility] [address] [address] [facility] [address] [place] [address] Tarah Cardenas, ANP [address] [place] [phone] Social History Tobacco Use Types Packs/Day Years Used Date Smoking Tobacco: Never Assessed Comments Unknown Sex and Gender Information Value Date Recorded Sex Assigned at Not on file Legal Sex Female 5:30 AM GAS WELDER APPRENTICE Gender Identity Not on file Sexual Orientation Not on file documented as of this encounter Progress Notes * Tarah Cardenas, JERZY - 12/29/2007 4:12 AM CDT TIME:03:54 pm PATIENT`S HOME PHONE: PATIENT`S WORK PHONE: PATIENT`S INSURANCE: [facility] WHO TOOK THE CALL: Nohemy Hernandez M GENERAL INFORMATION ALTERNATIVE PHONE NUMBER: [phone] SECTION 1: REQUESTED ACTION thor 03/03/06 at [...] [facility] At [address] [place] [address] Randal Cooley MD [address] [place] [address] 2014 [place] [address] documented as of this encounter Visit Diagnoses Not on filedocumented in this encounter Additional Health Concerns Infection Onset Date Last Indicated Resolved Time R/O COVID-19 11/08/2019 11/08/2019 11/11/2019 12:3 1 AM CDT R/O COVID-19 02/01/2020 02/01/2020 02/03/2020 2:00 AM GAS WELDER APPRENTICE documented as of this encounter Care Teams Braided Band Assembler Relationship Specialty Start Date End Date Jina Banda MD PCP - General Internal Medicine 06/20/16 12/03/21 documented as of this encounter
--- OUTSIDE RECORDS SUMMARY | 2025-03-03 08:08 | XMS_ITS | Encounter Summary ---
Author Organization [facility] Address [address] [place] [address] Care Team Providers Care Film Spooler Name Role Phone Jina Banda MD Primary Care Provider Unav ailable Encounter Details Date Type Department Care Team (Late st Contact Info) Description 12/27/2007 Outpatient Historical [facility] [address] Jina Banda MD NO ADDRESS ON FILE Hematuria, Unspecified Social History Tobacco Use Types Packs/Day Years Used Date Smoking Tobacco: Never Alcohol Use Standard Drinks/Week Comments Not Asked 0 (1 standard drink = 0.6 oz pur e alcohol) Comments No Sex and Gender Information Value Date Recorded Sex Assigned at Not on file Legal Sex Female 5:30 AM PROFILING MACHINE SET UP OPERATOR Gender Identity Not on file Sexual Orientation Not on file documented as of this encounter Plan of Treatment Upcoming Encounters Date Type Department Care Team (Late st Contact Info) Description 09/07/2025 9:15 AM CDT Office Visit [facility] Heart and Vascular At [address] 2014 [place] [address] Randal Cooley MD [address] [place] [address] 2014 [place] [address] documented as of this encounter Visit Diagnoses Diagnosis Hematuria, unspecified documented in this encounter Additional Health Concerns Infection Onset Date Last Indicated Resolved Time R/O COVID-19 11/08/2019 11/08/2019 11/11/2019 12:3 1 AM CDT R/O COVID-19 02/01/2020 02/01/2020 02/03/2020 2:00 AM PROFILING MACHINE SET UP OPERATOR documented as of this encounter Care Teams Film Spooler Relationship Specialty Start Date End Date Jina Banda MD PCP - General Internal Medicine 06/20/16 12/03/21 documented as of this encounter
--- OUTSIDE RECORDS SUMMARY | 2025-03-03 08:08 | XMS_ITS | Encounter Summary ---
Author Organization [facility] Address [address] [place] [address] Care Team Providers Care Mold Holder Name Role Phone Jina Banda MD Primary Care Provider Unav ailable Encounter Details Date Type Department Care Team (Late st Contact Info) Description 08/23/[address] [facility] Jina Vallejo MD NO ADDRESS ON FILE Injury, Other and Unspecified, Knee, Leg, Ankle, and Foot Social History Tobacco Use Types Packs/Day Years Used Date Smoking Tobacco: Never Assessed Comments Unknown Sex and Gender Information Value Date Recorded Sex Assigned at Not on file Legal Sex Female 5:30 AM CREW LEAD Gender Identity Not on file Sexual Orientation Not on file documented as of this encounter Plan of Treatment Upcoming Encounters Date Type Department Care Team (Late st Contact Info) Description 09/07/2025 9:15 AM CDT Office Visit [facility] Heart and Vascular At [address] 2014 [place] [address] Randal Cooley MD [address] [place] [address] 2014 [place] [address] documented as of this encounter Visit Diagnoses Diagnosis Injury, other and unspecified, knee, leg, ankle, and foot documented in this encounter Additional Health Concerns Infection Onset Date Last Indicated Resolved Time R/O COVID-19 11/08/2019 11/08/2019 11/11/2019 12:3 1 AM CDT R/O COVID-19 02/01/2020 02/01/2020 02/03/2020 2:00 AM CREW LEAD documented as of this encounter Care Teams Mold Holder Relationship Specialty Start Date End Date Jina Banda MD PCP - General Internal Medicine 06/20/16 12/03/21 documented as of this encounter
--- OUTSIDE RECORDS SUMMARY | 2025-03-03 08:08 | XMS_ITS | Encounter Summary ---
Author Organization [facility] Address [address] [place] [address] Care Team Providers Care Manager Sap Name Role Phone Jina Banda MD Primary [...] on file Legal Sex Female 5:30 AM HARNESS BRUSHER Gender Identity Not on file Sexual Orientation Not on file documented as of this encounter Plan of Treatment Upcoming Encounters Date Type Department Care Team (Late st Contact Info) Description 09/07/2025 9:15 AM CDT Office Visit [facility] Heart and Vascular At [address] 2014 [place] [address] Randal Cooley MD [address] [place] [address] 2014 [place] [address] documented as of this encounter Visit Diagnoses Diagnosis Acute maxillary sinusitis- Primary documented in this encounter Additional Health Concerns Infection Onset Date Last Indicated Resolved Time R/O COVID-19 11/08/2019 11/08/2019 11/11/2019 12:3 1 AM CDT R/O COVID-19 02/01/2020 02/01/2020 02/03/2020 2:00 AM HARNESS BRUSHER documented as of this encounter Care Teams Manager Sap Relationship Specialty Start Date End Date Jina Banda MD PCP - General Internal Medicine 06/20/16 12/03/21 documented as of this encounter
--- OUTSIDE RECORDS SUMMARY | 2025-03-03 08:08 | XMS_ITS | Encounter Summary ---
Author Organization [facility] Address [address] [place] [address] Care Team Providers Care Safety And Occupational Health Manager Name Role Phone Jina Banda MD Primary Care Provider Unav ailable Encounter Details Date Type Department Care Team (Late st Contact Info) Description 02/25/2006 Outpatient Historical [facility] Internal Medicine - [facility] [address] [address] [facility] [address] [place] [address] Jina Banda MD NO ADDRESS ON FILE Social History Tobacco Use Types Packs/Day Years Used Date Smoking Tobacco: Never Assessed Comments Unknown Sex and Gender Information Value Date Recorded Sex Assigned at Not on file Legal Sex Female 5:30 AM TRANSPORTATION SERVICES REPRESENTATIVE Gender Identity Not on file Sexual Orientation Not on file documented as of this encounter Plan of Treatment Upcoming Encounters Date Type Department Care Team (Late Contact Info) Description 09/07/2025 9:15 AM CDT Office Visit [facility] Heart and Vascular At [address] [place] [address] Randal Cooley MD [address] [place] [address] 2014 [place], [place] [phone] documented as of this encounter Visit Diagnoses Not on filedocumented in this encounter Additional Health Concerns Infection Onset Date Last Indicated Resolved Time R/O COVID-19 11/08/2019 11/08/2019 11/11/2019 12:3 1 AM CDT R/O COVID-19 02/01/2020 02/01/2020 02/03/2020 2:00 AM TRANSPORTATION SERVICES REPRESENTATIVE documented as of this encounter Care Teams Safety And Occupational Health Manager Relationship Specialty Start Date End Date Jina Banda MD PCP - General Internal Medicine 06/20/16 12/03/21 documented as of this encounter
--- OUTSIDE RECORDS SUMMARY | 2025-03-03 08:08 | XMS_ITS | Encounter Summary ---
Author Organization [facility] Address [address] [place] [address] Care Team Providers Care Medicine Technologist Name Role Phone Jina Banda MD Primary Care Provider Unav ailable Encounter Details Date Type Department Care Team (Late st Contact Info) Description 12/03/2004 Outpatient Historical [facility] Charo Haynes [address] [facility] [address] [place] [address] SCREENING MAMM-MAILG NEOPL NEC (Primary Dx) Social History Tobacco Use Types Packs/Day Years Used Date Smoking Tobacco: Never Assessed Comments Unknown Sex and Gender Information Value Date Recorded Sex Assigned at Not on file Legal Sex Female 5:30 AM PAPER REWINDER OPERATOR Gender Identity Not on file Sexual Orientation Not on file documented as of this encounter Plan of Treatment Upcoming Encounters Date Type Department Care Team (Late Contact Info) Description 09/07/2025 9:15 AM CDT Office Visit [facility] Heart and Vascular At [address] [place] [address] Randal Cooley MD [address] [place] [address] [address] [place] [address] documented as of this encounter Visit Diagnoses Diagnosis Other screening mammogram- Primary documented in this encounter Additional Health Concerns Infection Onset Date Last Indicated Resolved Time R/O COVID-19 11/08/2019 11/08/2019 11/11/2019 12:3 1 AM CDT R/O COVID-19 02/01/2020 02/01/2020 02/03/2020 2:00 AM PAPER REWINDER OPERATOR documented as of this encounter Care Teams Medicine Technologist Relationship Specialty Start Date End Date Jina Banda MD PCP - General Internal Medicine 06/20/16 12/03/21 documented as of this encounter
--- OUTSIDE RECORDS SUMMARY | 2025-03-03 08:08 | XMS_ITS | Encounter Summary ---
Author Organization [facility] Address [address] [place] [address] Care Team Providers Care Applied Psychology Teacher Name Role Phone Jina Banda MD Primary Care Provider Unav ailable Encounter Details Date Type Department Care Team (Late st Contact Info) Description 10/14/2001 Outpatient Historical [facility] Internal Medicine - [facility] [address] [address] [facility] [address] [place] [address] Jina Banda MD NO ADDRESS ON FILE Social History Tobacco Use Types Packs/Day Years Used Date Smoking Tobacco: Never Assessed Comments Unknown Sex and Gender Information Value Date Recorded Sex Assigned at Not on file Legal Sex Female 5:30 AM HEALTHCARE APPLICATIONS ANALYST Gender Identity Not on file Sexual Orientation Not on file documented as of this encounter Plan of Treatment Upcoming Encounters Date Type Department Care Team (Late Contact Info) Description 09/07/2025 9:15 AM CDT Office Visit [facility] Heart and Vascular At [address] [place] [address] Randal Coloey MD [address] [place] [address] 2014 [place], [place] [phone] documented as of this encounter Visit Diagnoses Not on filedocumented in this encounter Additional Health Concerns Infection Onset Date Last Indicated Resolved Time R/O COVID-19 11/08/2019 11/08/2019 11/11/2019 12:3 1 AM CDT R/O COVID-19 02/01/2020 02/01/2020 02/03/2020 2:00 AM HEALTHCARE APPLICATIONS ANALYST documented as of this encounter Care Teams Applied Psychology Teacher Relationship Specialty Start Date End Date Jina Banda MD PCP - General Internal Medicine 06/20/16 12/03/21 documented as of this encounter
--- OUTSIDE RECORDS SUMMARY | 2025-03-03 08:08 | XMS_ITS | Encounter Summary ---
Author Organization [facility] Address [address] [place] [address] Care Team Providers Care Driver Starting Gate Name Role Phone Jina Banda MD Primary Care Provider Unav ailable Encounter Details Date Type Department Care Team (Late st Contact Info) Description 05/26/2007 Outpatient Historical [facility] Internal Medicine - [facility] [address] [facility] [address] [place] [address] Jina Banda MD NO ADDRESS ON FILE Social History Tobacco Use Types Packs/Day Years Used Date Smoking Tobacco: Never Assessed Comments Unknown Sex and Gender Information Value Date Recorded Sex Assigned at Not on file Legal Sex Female 5:30 AM SLUNK SKINNER Gender Identity Not on file Sexual Orientation Not on file documented as of this encounter Plan of Treatment Upcoming Encounters Date Type Department Care Team (Late Contact Info) Description 09/07/2025 9:15 AM CDT Office Visit [facility] Heart and Vascular At [address] [place] [address] Randal Cooley MD [address] [place] [address] 2014 [place], [place] [phone] documented as of this encounter Visit Diagnoses Not on filedocumented in this encounter Additional Health Concerns Infection Onset Date Last Indicated Resolved Time R/O COVID-19 11/08/2019 11/08/2019 11/11/2019 12:3 1 AM CDT R/O COVID-19 02/01/2020 02/01/2020 02/03/2020 2:00 AM SLUNK SKINNER documented as of this encounter Care Teams Driver Starting Gate Relationship Specialty Start Date End Date Jina Banda MD PCP - General Internal Medicine 06/20/16 12/03/21 documented as of this encounter
--- OUTSIDE RECORDS SUMMARY | 2025-03-03 08:08 | XMS_ITS | Encounter Summary ---
Author Organization [facility] Address [address] [place] [address] Care Team Providers Care Glove Cutter Name Role Phone Jina Banda MD Primary Care Provider Unav ailable Encounter Details Date Type Department Care Team (Late st Contact Info) Description 01/22/2006 Outpatient Historical [facility] Charo Haynes [address] [facility] [address] [place] [address] Other Screening Mammogram (Primary Dx) Social History Tobacco Use Types Packs/Day Years Used Date Smoking Tobacco: Never Assessed Comments Unknown Sex and Gender Information Value Date Recorded Sex Assigned at Not on file Legal Sex Female 5:30 AM PROTECTIVE SIGNAL OPERATIONS SUPERVISOR Gender Identity Not on file Sexual Orientation Not on file documented as of this encounter Plan of Treatment Upcoming Encounters Date Type Department Care Team (Late st Contact Info) Description 09/07/2025 9:15 AM CDT Office Visit [facility] Heart and Vascular At [address] [place] [address] Randal Cooley MD [address] [place] [address] [address] [place], [place] [phone] documented as of this encounter Visit Diagnoses Diagnosis Other screening mammogram- Primary documented in this encounter Additional Health Concerns Infection Onset Date Last Indicated Resolved Time R/O COVID-19 11/08/2019 11/08/2019 11/11/2019 12:3 1 AM CDT R/O COVID-02/01/2020 02/01/2020 02/03/2020 2:00 AM PROTECTIVE SIGNAL OPERATIONS SUPERVISOR documented as of this encounter Care Teams Glove Cutter Relationship Specialty Start Date End Date Jina Banda MD PCP - General Internal Medicine 06/20/16 12/03/21 documented as of this encounter
--- OUTSIDE RECORDS SUMMARY | 2025-03-03 08:08 | XMS_ITS | Encounter Summary ---
Author Organization [facility] Address [address] [place] [address] Care Team Providers Care Electrical Accessories Ii Assembler Name Role Phone Jina Banda MD Primary Care Provider Unav ailable Encounter Details Date Type Department Care Team (Late st Contact Info) Description 06/04/2007 Orders Only [facility] Internal Medicine - [facility] [address] [address] [facility] [address] [place] [address] Jina Banda MD NO ADDRESS ON FILE Social History Tobacco Use Types Packs/Day Years Used Date Smoking Tobacco: Never Assessed Comments Unknown Sex and Gender Information Value Date Recorded Sex Assigned at Not on file Legal Sex Female 5:30 AM RECONNAISSANCE MAN Gender Identity Not on file Sexual Orientation Not on file documented as of this encounter Plan of Treatment Upcoming Encounters Date Type Department Care Team (Late Contact Info) Description 09/07/2025 9:15 AM CDT Office Visit [facility] Heart and Vascular At [address] [place] [address] Randal Cooley MD [address] [place] [address] 2014 [place], [place] [phone] documented as of this encounter Visit Diagnoses Not on filedocumented in this encounter Additional Health Concerns Infection Onset Date Last Indicated Resolved Time R/O COVID-19 11/08/2019 11/08/2019 11/11/2019 12:3 1 AM CDT R/O COVID-19 02/01/2020 02/01/2020 02/03/2020 2:00 AM RECONNAISSANCE MAN documented as of this encounter Care Teams Electrical Accessories Ii Assembler Relationship Specialty Start Date End Date Jina Banda MD PCP - General Internal Medicine 06/20/16 12/03/21 documented as of this encounter
--- OUTSIDE RECORDS SUMMARY | 2025-03-03 08:08 | XMS_ITS | Encounter Summary ---
Author Organization [facility] Address [address] [place] [address] Care Team Providers Care Mathematics Lecturer Name Role Phone Jina Banda MD Primary Care Provider Unav ailable Encounter Details Date Type Department Care Team (Late st Contact Info) Description 05/03/2003 Outpatient Historical [facility] Internal Medicine - [facility] [address] [address] [facility] [address] [place] [address] Jina Banda MD NO ADDRESS ON FILE Social History Tobacco Use Types Packs/Day Years Used Date Smoking Tobacco: Never Assessed Comments Unknown Sex and Gender Information Value Date Recorded Sex Assigned at Not on file Legal Sex Female 5:30 AM TOE STRIPPER Gender Identity Not on file Sexual Orientation Not on file documented as of this encounter Plan of Treatment Upcoming Encounters Date Type Department Care Team (Late Contact Info) Description 09/07/2025 9:15 AM CDT Office Visit [facility] Heart and Vascular At [address] [place] [address] Randal Cooley MD [address] [place] [address] [address] [place], [place] [phone] documented as of this encounter Visit Diagnoses Not on filedocumented in this encounter Additional Health Concerns Infection Onset Date Last Indicated Resolved Time R/O COVID-19 11/08/2019 11/08/2019 11/11/2019 12:3 1 AM CDT R/O COVID-19 02/01/2020 02/01/2020 02/03/2020 2:00 AM TOE STRIPPER documented as of this encounter Care Teams Mathematics Lecturer Relationship Specialty Start Date End Date Jina Banda MD PCP - General Internal Medicine 06/20/16 12/03/21 documented as of this encounter
--- OUTSIDE RECORDS SUMMARY | 2025-03-03 08:08 | XMS_ITS | Encounter Summary ---
Author Organization [facility] Address [address] [place] [address] Care Team Providers Care Neuroscience Specialist Name Role Phone Jina Banda MD Primary Care Provider Unav ailable Encounter Details Date Type Department Care Team (Late st Contact Info) Description 04/15/2005 Outpatient Historical [facility] [address] [place] [address] Jack Thompson MD [address] [place], [place] [address], [place] [phone] Social History Tobacco Use Types Packs/Day Years Used Date Smoking Tobacco: Never Assessed Comments Unknown Sex and Gender Information Value Date Recorded Sex Assigned at Not on file Legal Sex Female 5:30 AM LUMBER HANDLER Gender Identity Not on file Sexual Orientation Not on file documented as of this encounter Plan of Treatment Upcoming Encounters Date Type Department Care Team (Late st Contact Info) Description 09/07/2025 9:15 AM CDT Office Visit [facility] At [facility] [address] [facility] [address] [place] [address] Randal Cooley MD [address] [place] [address] 2014 [place], [place] [phone] documented as of this encounter Visit Diagnoses Not on filedocumented in this encounter Additional Health Concerns Infection Onset Date Last Indicated Resolved Time R/O COVID-19 11/08/2019 11/08/2019 11/11/2019 12:3 1 AM CDT R/O COVID-19 02/01/2020 02/01/2020 02/03/2020 2:00 AM LUMBER HANDLER documented as of this encounter Care Teams Neuroscience Specialist Relationship Specialty Start Date End Date Jina Banda MD PCP - General Internal Medicine 06/20/16 12/03/21 documented as of this encounter
--- OUTSIDE RECORDS SUMMARY | 2025-03-03 08:08 | XMS_ITS | Encounter Summary ---
Author Organization [facility] Address [address] [place] [address] Care Team Providers Care Terrazzo Helper Name Role Phone Jina Banda MD Primary Care Provider Unav ailable Encounter Details Date Type Department Care Team (Late st Contact Info) Description 02/25/2006 Orders Only [facility] Internal Medicine - [facility] [address] [address] [facility] [address] [place] [address] Jina Banda MD NO ADDRESS ON FILE Social History Tobacco Use Types Packs/Day Years Used Date Smoking Tobacco: Never Assessed Comments Unknown Sex and Gender Information Value Date Recorded Sex Assigned at Not on file Legal Sex Female 5:30 AM OYSTER SHIPPER Gender Identity Not on file Sexual Orientation [...] Oral WEIGHT: 146lbs NURSE NAME: Nohemy Hernandez Michelle ALLERGIES: Allergies are as listed. MEDICATIONS: Medication [...] loss. Is not followed by [facility]. Saw hip hop dance instructor and had normal exam. ENT: No hearing [...] tightening. 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 If does not resolve, refer to orthopedist. LAB ORDERS: Order number: [id number] Test Ordered: XRAY HIP LEFT V70.0-ROUTINE GENERAL MEDICAL EXAMINATION V06.5-NEED FOR VACC TETANUS-DIPHTHERIA (TD) LAB ORDERS: Order number: [id number] Test Ordered: INJ-TETANUS AND DIPTHERIA TOXOID 01541 HEALTH MAINTENANCE: LAST PAP DATE: . LAST MAMMOGRAM DATE: . LAST TD: today PREVENTIVE COUNSELING The patient was counseled regarding regular self- examination of the breasts on a monthly basis, regular sustained exercise for at least 30 minutes 3-4 times per week, adult immunizations, routine screening interval for mammogram as recommended by the [employer] and ACOG, importance of regular [...] [facility] Heart and Vascular At [address] [place] [address] Randal Cooley MD [address] [place] [address] 2014 [place] [address] documented as of this encounter Visit Diagnoses Not on filedocumented in this encounter Additional Health Concerns Infection Onset Date Last Indicated Resolved Time R/O COVID-19 11/08/2019 11/08/2019 11/11/2019 12:3 1 AM CDT R/O COVID-19 02/01/2020 02/01/2020 02/03/2020 2:00 AM OYSTER SHIPPER documented as of this encounter Care Teams Terrazzo Helper Relationship Specialty Start Date End Date Jina Banda MD PCP - General Internal Medicine 06/20/16 12/03/21 documented as of this encounter
--- OUTSIDE RECORDS SUMMARY | 2025-03-03 08:08 | XMS_ITS | Encounter Summary ---
Author Organization [facility] Address [address] [place] [address] Care Team Providers Care News Assistant Name Role Phone Jina Banda MD Primary Care Provider Unav ailable Encounter Details Date Type Department Care Team (Late st Contact Info) Description 02/12/2000 Outpatient Historical [facility] Internal Medicine - [facility] [address] [address] [facility] [address] [place] [address] Jina Banda MD NO ADDRESS ON FILE Social History Tobacco Use Types Packs/Day Years Used Date Smoking Tobacco: Never Assessed Comments Unknown Sex and Gender Information Value Date Recorded Sex Assigned at Not on file Legal Sex Female 5:30 AM SAW REPAIRER Gender Identity Not on file Sexual Orientation Not on file documented as of this encounter Plan of Treatment Upcoming Encounters Date Type Department Care Team (Late Contact Info) Description 09/07/2025 9:15 AM CDT Office Visit [facility] Heart and Vascular At [address] [place] [address] Randal Cooley MD [address] [place] [address] [address] [place], [place] [phone] documented as of this encounter Visit Diagnoses Not on filedocumented in this encounter Additional Health Concerns Infection Onset Date Last Indicated Resolved Time R/O COVID-19 11/08/2019 11/08/2019 11/11/2019 12:3 1 AM CDT R/O COVID-19 02/01/2020 02/01/2020 02/03/2020 2:00 AM SAW REPAIRER documented as of this encounter Care Teams News Assistant Relationship Specialty Start Date End Date Jina Banda MD PCP - General Internal Medicine 06/20/16 12/03/21 documented as of this encounter
--- OUTSIDE RECORDS SUMMARY | 2025-03-03 08:08 | XMS_ITS | Encounter Summary ---
Author Organization [facility] Address [address] [place] [address] Care Team Providers Care Patient Safety Manager Name Role Phone Jina Banda MD Primary Care Provider Unav ailable Encounter Details Date Type Department Care Team (Late st Contact Info) Description 08/15/2002 Outpatient Historical [facility] Internal Medicine - [facility] [address] [address] [facility] [address] [place] [address] Jina Banda MD NO ADDRESS ON FILE Social History Tobacco Use Types Packs/Day Years Used Date Smoking Tobacco: Never Assessed Comments Unknown Sex and Gender Information Value Date Recorded Sex Assigned at Not on file Legal Sex Female 5:30 AM PERMANENT MOLD SUPERVISOR Gender Identity Not on file Sexual Orientation Not on file documented as of this encounter Plan of Treatment Upcoming Encounters Date Type Department Care Team (Late Contact Info) Description 09/07/2025 9:15 AM CDT Office Visit [facility] Heart and Vascular At [address] [place] [address] Randal Cooley MD [address] [place] [address] 2014 [place], [place] [phone] documented as of this encounter Visit Diagnoses Not on filedocumented in this encounter Additional Health Concerns Infection Onset Date Last Indicated Resolved Time R/O COVID-19 11/08/2019 11/08/2019 11/11/2019 12:3 1 AM CDT R/O COVID-19 02/01/2020 02/01/2020 02/03/2020 2:00 AM PERMANENT MOLD SUPERVISOR documented as of this encounter Care Teams Patient Safety Manager Relationship Specialty Start Date End Date Jina Banda MD PCP - General Internal Medicine 06/20/16 12/03/21 documented as of this encounter
--- OUTSIDE RECORDS SUMMARY | 2025-03-03 08:08 | XMS_ITS | Encounter Summary ---
Author Organization [facility] Address [address] [place] [address] Care Team Providers Care Thread Spinner Name Role Phone Jina Banda MD Primary Care Provider Unav ailable Encounter Details Date Type Department Care Team (Late st Contact Info) Description 10/07/2000 Outpatient Historical [facility] Internal Medicine - [facility] [address] [address] [facility] [address] [place] [address] Jina Banda MD NO ADDRESS ON FILE Social History Tobacco Use Types Packs/Day Years Used Date Smoking Tobacco: Never Assessed Comments Unknown Sex and Gender Information Value Date Recorded Sex Assigned at Not on file Legal Sex Female 5:30 AM HAND BRIM IRONER Gender Identity Not on file Sexual Orientation Not on file documented as of this encounter Plan of Treatment Upcoming Encounters Date Type Department Care Team (Late Contact Info) Description 09/07/2025 9:15 AM CDT Office Visit [facility] Heart and Vascular At [address] [place] [address] Randal Cooley MD [address] [place] [address] 2014 [place], [place] [phone] documented as of this encounter Visit Diagnoses Not on filedocumented in this encounter Additional Health Concerns Infection Onset Date Last Indicated Resolved Time R/O COVID-19 11/08/2019 11/08/2019 11/11/2019 12:3 1 AM CDT R/O COVID-19 02/01/2020 02/01/2020 02/03/2020 2:00 AM HAND BRIM IRONER documented as of this encounter Care Teams Thread Spinner Relationship Specialty Start Date End Date Jina Banda MD PCP - General Internal Medicine 06/20/16 12/03/21 documented as of this encounter
--- OUTSIDE RECORDS SUMMARY | 2025-03-03 08:08 | XMS_ITS | Encounter Summary ---
Author Organization [facility] Address [address] [facility] [place] [address] Care Team Providers Care Computer Systems Auditor Name Role Phone Mervin Jay DO Primary Care Provider Encounter Details Date Type Department Care Team (Late st Contact Info) Description 09/26/2020 Lab Requisition [facility] [address] [place] [id number] Jakob Marr MD [address] [place] [address] Social History Tobacco Use Types Packs/Day Years Used Date Smoking Tobacco: Never Smokeless Tobacco: Never Alcohol Use Standard Drinks/Week Comments No 0 (1 standard drink = 0.6 oz pur e alcohol) Comments No Sex and Gender Information Value Date Recorded Sex Assigned at Not on file Legal Sex Female 6:26 AM TREE DOCTOR Gender Identity Not on file Sexual Orientation Not on file documented as of this encounter Plan of Treatment Not on file documented as of this encounter Procedures Procedure Name Priority Date/Time Associated Diagnosis Comments DERMATOPATHOLOGY Routine 09/25/2020 12:0 0 AM CDT documented in this encounter Results * DERMATOPATHOLOGY (09/25/2020 12:00 AM CDT) Case Report Dermatopathology Report Case: [id number] Authorizing Provider: Jakob Marr MD Collected: 09/25/2020 [...] characteristic determined by the Dermatopathology Laboratory at [facility], directed by Dr. Bruce Varghese. These tests need not be, and therefore are not, approved by the [place] Food and Drug Administration. The tests are used for clinical purposes. Billing Codes Specimen Charges Stain Charges 40304 1 1 1:17 PM CDT DERMATOPATHOLOGY LABORATORY Embedded Images 1:17 PM CDT DERMATOPATHOLOGY LABORATORY Pathology/Cytolog y TISSUE SPECIMEN FROM SKIN / Unknown 09/25/2020 09/26/2020 1:47 PM CDT Jakob Marr MD LAB - PATHOLOGY/CYTOLOGY ORDERA BLES Final Result DERMATOPATHOLOGY LABORATORY [facility] - Department of Dermatology [facility] Medicine [address] [place] [address], [address] [phone] documented in this encounter Visit Diagnoses Not on filedocumented in this encounter Care Teams Computer Systems Auditor Relationship Specialty Start Date End Date Mervin Jay DO PCP - General 09/26/20 documented as of this encounter
--- OUTSIDE RECORDS SUMMARY | 2025-03-03 08:08 | XMS_ITS | Encounter Summary ---
Author Organization [facility] Address [address] [place] [address] Care Team Providers Care Block Cableman Name Role Phone Jina Banda MD Primary [...] file Legal Sex Female 5:30 AM UTILITY SALES AND SERVICE MANAGER Gender Identity Not on file Sexual Orientation Not on file documented as of this encounter Plan of Treatment Upcoming Encounters Date Type Department Care Team (Late st Contact Info) Description 09/07/2025 9:15 AM CDT Office Visit [facility] Heart and Vascular At [address] [place] [address] Randal Cooley MD [address] [place] [address] 2014 [place] [address] documented as of this encounter Visit Diagnoses Diagnosis Other chest pain- Primary documented in this encounter Additional Health Concerns Infection Onset Date Last Indicated Resolved Time R/O COVID-19 11/08/2019 11/08/2019 11/11/2019 12:3 1 AM CDT R/O COVID-19 02/01/2020 02/01/2020 02/03/2020 2:00 AM UTILITY SALES AND SERVICE MANAGER documented as of this encounter Care Teams Block Cableman Relationship Specialty Start Date End Date Jina Banda MD PCP - General Internal Medicine 06/20/16 12/03/21 documented as of this encounter
--- OUTSIDE RECORDS SUMMARY | 2025-03-03 08:08 | XMS_ITS | Encounter Summary ---
Author Organization [facility] Address [address] [place] [address] Care Team Providers Care Inspector And Clipper Name Role Phone Jina Banda MD Primary Care Provider Unav ailable Encounter Details Date Type Department Care Team (Late st Contact Info) Description 06/16/[address] [facility] Internal Medicine - [facility] [address] [address] [facility] [address] [place] [address] Jina Banda MD NO ADDRESS ON FILE Other Specified Visual Disturbances (Primary Dx) Social History Tobacco Use Types Packs/Day Years Used Date Smoking Tobacco: Never Assessed Comments Unknown Sex and Gender Information Value Date Recorded Sex Assigned at Not on file Legal Sex Female 5:30 AM CONCRETE STONE FINISHER Gender Identity Not on file Sexual Orientation Not on file documented as of this encounter Plan of Treatment Upcoming Encounters Date Type Department Care Team (Late st Contact Info) Description 09/07/2025 9:15 AM CDT Office Visit [facility] Heart and Vascular At [address] [place] [phone] Randal Cooley MD [address] [place] [address] [address] [place] [address] documented as of this encounter [...] and non- Americans is available on the [facility] Intranet at: [email or web address] Select: Lab Policies and Procedures Select: Reference [...] R/O COVID-19 02/01/2020 02/01/2020 02/03/2020 2:00 AM CONCRETE STONE FINISHER documented as of this encounter Care Teams Inspector And Clipper Relationship Specialty Start Date End Date Jina Banda MD PCP - General Internal Medicine 06/20/16 12/03/21 documented as of this encounter
--- OUTSIDE RECORDS SUMMARY | 2025-03-03 08:08 | XMS_ITS | Encounter Summary ---
Author Organization [facility] Address [address] [place] [address] Care Team Providers Care Iron Plastic Bullet Maker Name Role Phone Jina Banda MD Primary Care Provider Unav ailable Encounter Details Date Type Department Care Team (Late st Contact Info) Description 02/16/2007 Outpatient Historical [facility] [place], Authorized P NO ADDRESS ON FILE William Pimentel MD [address] [place] [id number] Lisa Palafox MD NO ADDRESS ON FILE Other and Unspecified Noninfectious Gastroenteritis and Colitis Social History Tobacco Use Types Packs/Day Years Used Date Smoking Tobacco: Never Assessed Comments Unknown Sex and Gender Information Value Date Recorded Sex Assigned at Not on file Legal Sex Female 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 Gender Identity Not on file Sexual Orientation Not on file documented as of this encounter Plan of Treatment Upcoming Encounters Date Type Department Care Team (Late st Contact Info) Description 09/07/2025 9:15 AM CDT Office Visit [facility] [address] [place] [id number] Randal Cooley MD [address] [place] [address] [address] [place] [address] documented as of this encounter Procedures Procedure Name Priority Date/Time Associated Diagnosis Comments CBC WITH DIFFERENTIAL Routine 02/18/2007 4:56 AM ORACLE EBS DEVELOPER CBC WITH DIFFERENTIAL Routine 02/18/2007 4:56 AM ORACLE EBS DEVELOPER COMPREHENSIVE METABOLIC PANEL Routine 02/18/2007 4:56 AM ORACLE EBS DEVELOPER CBC WITH DIFFERENTIAL Routine 02/17/2007 4:48 AM ORACLE EBS DEVELOPER CBC WITH DIFFERENTIAL Routine 02/17/2007 4:48 AM ORACLE EBS DEVELOPER C-REACTIVE PROTEIN Routine 02/17/2007 4: 48 AM ORACLE EBS DEVELOPER VITAMIN B12 LEVEL Routine 02/17/2007 4:4 8 AM ORACLE EBS DEVELOPER BASIC METABOLIC PANEL Routine 02/17/2007 4:48 AM ORACLE EBS DEVELOPER CBC WITH DIFFERENTIAL Routine 02/16/2007 10:35 PM ORACLE EBS DEVELOPER CBC WITH DIFFERENTIAL Routine 02/16/2007 10:35 PM ORACLE EBS DEVELOPER LIPASE Routine 02/16/2007 10:35 PM ORACLE EBS DEVELOPER AMYLASE Routine 02/16/2007 10:35 PM ORACLE EBS DEVELOPER COMPREHENSIVE METABOLIC PANEL Routine 02/16/2007 10:35 PM ORACLE EBS DEVELOPER documented in this encounter Results * (ABNORMAL) CBC WITH DIFFERENTIAL (02/18/2007 4:56 AM ORACLE EBS DEVELOPER) NEUTROPHILS 39(L) 45 - 70 % INTERFAC [...] 0.20 K/uL INTERFACE SYSTEM 02/18/2007 4:56 AM ORACLE EBS DEVELOPER Lisa Palafox MD HEMATOLOGY ORDERABLES Edited Performing Organization Address [facility] Co de Phone Number INTERFACE SYSTEM Refer to clinic/hospital department * (ABNORMAL) CBC WITH DIFFERENTIAL (02/18/2007 4:56 AM ORACLE EBS DEVELOPER) WBC 3.2(L) 4.0 - 9.8 K/uL INTERFACE [...] 12.4 fL INTERFACE SYSTEM 02/18/2007 4:56 AM ORACLE EBS DEVELOPER Lisa Palafox MD HEMATOLOGY ORDERABLES Edited Performing Organization Address [facility] de Phone Number INTERFACE SYSTEM Refer to clinic/hospital department * (ABNORMAL) COMPREHENSIVE METABOLIC PANEL (02/18/2007 4:56 AM ORACLE EBS DEVELOPER) GLUCOSE 81 65 - 99 mg/dL INTERFACE [...] and non- Americans is available on the [facility] Intranet at: [email or web address] Select: Lab Policies and Procedures Select: Reference Ranges - GFR 02/18/2007 4:56 AM ORACLE EBS DEVELOPER Lisa Palafox MD CHEMISTRY ORDERABLES Edited Performing Organization Address [facility] Phone Number INTERFACE SYSTEM Refer to clinic/hospital department * CBC WITH DIFFERENTIAL (02/17/2007 4:48 AM ORACLE EBS DEVELOPER) NEUTROPHILS 67 45 - 70 % INTERFAC [...] 0.20 K/uL INTERFACE SYSTEM 02/17/2007 4:48 AM ORACLE EBS DEVELOPER William Pimentel MD HEMATOLOGY ORDERABLES Edited Performing Organization Address [facility] Phone Number INTERFACE SYSTEM Refer to clinic/hospital department * (ABNORMAL) CBC WITH DIFFERENTIAL (02/17/2007 4:48 AM ORACLE EBS DEVELOPER) WBC 2.9(L) 4.0 - 9.8 K/uL INTERFACE [...] 12.4 fL INTERFACE SYSTEM 02/17/2007 4:48 AM ORACLE EBS DEVELOPER Result Arash Pimentel MD HEMATOLOGY ORDERABLES Edited Performing Organization Address [facility] Phone Number INTERFACE SYSTEM Refer to clinic/hospital department * VITAMIN B12 (02/17/2007 4:48 AM ORACLE EBS DEVELOPER) VITAMIN B12 211 211 - 946 pg/mL INTERFACE SYSTEM Comment: It has been reported that between 5 to 10% of patients with values between 200 and 400 pg/mL may experience neuropsychiatric and hematologic abnormalities due to occult B12 deficiency. Less than 1% of patients with values above 400 pg/mL will have symptoms. 02/17/2007 4:48 AM ORACLE EBS DEVELOPER Result Arash Pimentel MD CHEMISTRY ORDERABLES Edited Performing Organization Address [facility] Phone Number INTERFACE SYSTEM Refer to clinic/hospital department * C-REACTIVE PROTEIN (02/17/2007 4:48 AM ORACLE EBS DEVELOPER) CRP <0.2 0.0 - 0.8 mg/dL INTERFACE SYSTEM 02/17/2007 4:48 AM ORACLE EBS DEVELOPER Result Arash Pimentel MD CHEMISTRY ORDERABLES Edited Performing Organization Address [facility] Phone Number INTERFACE SYSTEM Refer to clinic/hospital department * (ABNORMAL) BASIC METABOLIC PANEL (02/17/2007 4:48 AM ORACLE EBS DEVELOPER) GLUCOSE 111(H) 65 - 99 mg/dL INTERFACE [...] and non- Americans is available on the [facility] Intranet at: [email or web address] Select: Lab Policies and Procedures Select: Reference Ranges - GFR 02/17/2007 4:48 AM ORACLE EBS DEVELOPER William Pimentel MD CHEMISTRY ORDERABLES Edited INTERFACE SYSTEM Refer to clinic/hospital department * (ABNORMAL) CBC WITH DIFFERENTIAL (02/16/2007 10:35 PM ORACLE EBS DEVELOPER) NEUTROPHILS 46 45 - 70 % INTERFAC [...] K/uL INTERFACE SYSTEM 02/16/2007 10:3 5 PM ORACLE EBS DEVELOPER Daniel Garcia MD HEMATOLOGY ORDERABLES Edited Performing Organization Address [facility] de Phone Number INTERFACE SYSTEM Refer to clinic/hospital department * (ABNORMAL) CBC WITH DIFFERENTIAL (02/16/2007 10:35 PM ORACLE EBS DEVELOPER) WBC 3.5(L) 4.0 - 9.8 K/uL INTERFACE [...] fL INTERFACE SYSTEM 02/16/2007 10:3 5 PM ORACLE EBS DEVELOPER Daniel Garcia MD HEMATOLOGY ORDERABLES Edited Performing Organization Address [facility] Phone Number INTERFACE SYSTEM Refer to clinic/hospital department * LIPASE (02/16/2007 10:35 PM ORACLE EBS DEVELOPER) LIPASE 58 13 - 60 U/L INTERFAC E SYSTEM 02/16/2007 10:3 5 PM ORACLE EBS DEVELOPER Daniel Garcia MD CHEMISTRY ORDERABLES Edited Performing Organization Address [facility] de Phone Number INTERFACE SYSTEM Refer to clinic/hospital department * AMYLASE (02/16/2007 10:35 PM ORACLE EBS DEVELOPER) AMYLASE 86 28 - 100 U/L INTERFACE SYSTEM 02/16/2007 10:3 5 PM ORACLE EBS DEVELOPER Daniel Garcia MD CHEMISTRY ORDERABLES Edited Performing Organization Address [facility] de Phone Number INTERFACE SYSTEM Refer to clinic/hospital department * (ABNORMAL) COMPREHENSIVE METABOLIC PANEL (02/16/2007 10:35 PM ORACLE EBS DEVELOPER) GLUCOSE 98 65 - 99 mg/dL INTERFACE [...] and non- Americans is available on the [facility] Intranet at: [email or web address] Select: Lab Policies and Procedures Select: Reference Ranges - GFR 02/16/2007 10:3 5 PM ORACLE EBS DEVELOPER Daniel Garcia MD CHEMISTRY ORDERABLES Edited INTERFACE [...] COVID-19 02/01/2020 02/01/2020 02/03/2020 2:00 AM ORACLE EBS DEVELOPER documented as of this encounter Care Teams Iron Plastic Bullet Maker Relationship Specialty Start Date End Date Jina Banda MD PCP - General Internal Medicine 06/20/16 12/03/21 documented as of this encounter
== END 2025-03-03 08:01 | disposition home or self-care (01) ==
PROVIDERS: PCP Clinical Nurse Specialist; Visit Provider Clinical Nurse Specialist
DX: R42 Dizziness and giddiness (principal); I65.23 Occlusion and stenosis of bilateral carotid arteries
CPT/HCPCS: 93880